=== PATIENT | male | born 1950 | race Caucasian/White ===

== ENCOUNTER 2020-07-22 14:33 | Emergency (ER) | payer MEDICARE, OTHER, SELFPAY ==
[2020-07-22] VITALS (8 sets, daily range): BP systolic 134–162; BP diastolic 73–83; PULSE 77–91; RESP 15–16; TEMP 36.7–37.1; O2SAT 96–98; BMI 25.6
--- NOTE | 2020-07-22 15:18 | XR_ITS ---
EXAMINATION: XR CHEST CLINICAL INFORMATION: Chest pain COMPARISON: 07/18/2008 TECHNIQUE: Frontal view of the chest was obtained. FINDINGS: Lungs are clear. No focal consolidation or mass. Normal pulmonary vascularity. No pleural effusion or pneumothorax. Tortuous aorta again seen, similar to the prior study. Normal heart size. S-shaped thoracolumbar scoliosis. XR/XR chest 1V IMPRESSION: No acute pulmonary disease.
--- NOTE | 2020-07-22 15:19 | ED.CHESTPAIN ---
HPI - Chest Pain General Chief Complaint: Chest Pain <PORFIRIO Farmer Last Filed: 07/22/20 17:49> Stated Complaint: CHEST PAIN <PORFIRIO Farmer Last Filed: 07/22/20 17:49> Time Seen by Provider: 07/22/20 15:18 <PORFIRIO Farmer Last Filed: 07/22/20 17:49> Source: patient <PORFIRIO Farmer Last Filed: 07/22/20 17:49> Mode of arrival: ambulatory <PORFIRIO Farmer Last Filed: 07/22/20 17:49> Limitations: no limitations <PORFIRIO Farmer Last Filed: 07/22/20 17:49> History of Present Illness HPI narrative: 70 y/o male with history of diabetes, HTN, HLD presenting from Urgent care with 2 days of intermittent sharp left sided chest pain. He states the 1st episode started at rest while he was at home 2 days ago. Lasted about 30 minutes and slowly resolved. Associated with nausea, no diaphoresis. He reports it recurred today while he was walking around [facility]. The pain is on the left side of his chest, does not radiate. He reports at maximum it was 9/10 and currently 1/10. When the pain is severe he feels lightheaded. Denies personal history of heart disease with a positive family history in mom and dad when they were elderly. He is a never smoker. <PORFIRIO Farmer Last Filed: 07/22/20 17:49> Related Data Home Medications: Previous Rx's Medication Instructions Recorded metformin 1,000 mg tablet 1,000 mg PO BID 90 Days #180 tab 06/23/20 <PORFIRIO Farmer Last Filed: 07/22/20 17:49> Allergies/Adverse Reactions: Allergies Allergy/AdvReac Type Severity Reaction Status Date / Time sitagliptin [From SEPUVIA] Allergy Unknown vomitting Verified 07/21/20 10:23 <PORFIRIO Farmer Last Filed: 07/22/20 17:49> Review of Systems Review of Systems: Constitutional: No Fever, No Chills ENT/Mouth: No sore throat, No Rhinorrhea, No Swallowing Difficulty Eyes: No Eye Pain, No Swelling, No Redness Cardiovascular: + Chest Pain, No SOB, No Orthopnea, No Edema Respiratory: No Cough, No Sputum, No Wheezing, No dyspnea Gastrointestinal: No Nausea, No Vomiting, No Diarrhea, No abdominal Pain, No Hematochezia, No Melena Genitourinary: No Dysuria, No Urinary Frequency, No Hematuria Musculoskeletal: No joint pain, No Myalgias Skin: No Skin Lesions, No rash Neuro: No Weakness, No Numbness, + Dizziness, No Headache Psych: No Anxiety/Panic, No Depression Heme/Lymph: No Bruising, No Lymphadenopathy Endocrine: No Polyuria, No Polydipsia <PORFIRIO Farmer - Last Filed: 07/22/20 17:49> [facility] Past Medical History Medical History: Medical History (Updated 07/24/20 @ 00:07 by Rolando Moscoso) Diabetes HTN (hypertension) Hyperlipidemia <PORFIRIO Farmer - Last Filed: 07/22/20 17:49> Surgical History: Surgical History (Updated 07/21/20 @ 10:24 by ELADIA Burnett) No pertinent past surgical history <PORFIRIO Farmer - Last Filed: 07/22/20 17:49> Family History Family History: Family History (Updated 07/21/20 @ 10:24 by ELADIA Burnett) Father No problems noted. Mother Myocardial infarction Sister Diabetes Hypertension <PORFIRIO Farmer - Last Filed: 07/22/20 17:49> Social History Social History: Social History Alcohol intake: current Alcohol intake frequency: holidays/special occasions only Smoking Status: Never smoker <PORFIRIO Farmer - Last Filed: 07/22/20 17:49> Physical Exam Vital Signs: Vital Signs: Last Vital Signs Temp 98.9 F 07/23/20 02:00 Pulse 83 07/23/20 02:00 Resp 18 07/23/20 02:00 BP 132/89 07/23/20 02:00 Pulse Ox 97 07/23/20 02:00 Body Mass Index 25.6 Appearance: Alert. Oriented X3. No acute distress. Eyes: Pupils equal, round and reactive to light. ENT: Pharynx normal. Neck: Normal inspection. Neck supple. CVS: Normal heart rate and rhythm. Pulses normal. No chest wall tenderness. Respiratory: No respiratory distress. Breath sounds normal. Abdomen: Soft, obese, and nontender. +BS x4 Skin: Skin warm and dry. Normal skin color. Normal skin turgor. No rashes. Extremities: No lower extremity edema. Negative Chai's sign Neuro: Oriented X 3. No motor deficit. No sensory deficit. <PORFIRIO Farmer - Last Filed: 07/22/20 17:49> Vital Signs: Last Vital Signs Temp 98.9 F 07/23/20 02:00 Pulse 83 07/23/20 02:00 Resp 18 07/23/20 02:00 BP 132/89 07/23/20 02:00 Pulse Ox 97 07/23/20 02:00 Body Mass Index 25.6 <PORFIRIO Dougherty - Last Filed: 07/23/20 01:29> Vital Signs: Last Vital Signs Temp 98.9 F 07/23/20 02:00 Pulse 83 07/23/20 02:00 Resp 18 07/23/20 02:00 BP 132/89 07/23/20 02:00 Pulse Ox 97 07/23/20 02:00 Body Mass Index 25.6 <Michael De León MD - Last Filed: 07/25/20 02:20> Course Course Course Narrative: 70 y/o here with intermittent left sided chest pain. Need to r/o ACS and PE. Pain is minimal at this time. 1st troponin negative. DDIMER negative. No ischemic changes on EKG. 2nd troponin pending. Pain currently 09/21 patient appears well. Signed out to Jewel Stephens PA-C who will assume care. <PORFIRIO Farmer - Last Filed: 07/22/20 17:49> I have reviewed the chart <Michael De León MD - Last Filed: 07/25/20 02:20> MDM - Chest Pain Lab Data Result diagrams: : 07/22/20 15:30 07/22/20 15:30 <PORFIRIO Farmer - Last Filed: 07/22/20 17:49> Labs: Lab Results 07/22/20 07/22/20 07/22/20 Range/Units 15:30 15:30 15:30 WBC 4.6 L (4.8-10.8) X10*3/uL RBC 4.22 L (4.60-5.80) X10*6/uL Hgb 12.8 L (14.0-18.0) g/dl Hct 38.9 L (42-52) % MCV 92.2 (80-98) fL MCH 30.3 (27.0-33.0) pg MCHC 32.9 (31.0-36.0) g/dl RDW 12.0 (11.0-16.0) % Plt Count 195 (160-400) X10*3/uL MPV 10.2 (9.4-12.4) fL Immature Gran % (Auto) 0.2 (0.0-0.4) % Neut % (Auto) 52.4 (45-73) % Lymph % (Auto) 33.5 (20-40) % [place] % (Auto) 8.7 (2-11) % Eos % (Auto) 5.0 H (0-4) % Baso % (Auto) 0.2 (0-2) % Lymph # (Auto) 1.6 (1.2-4.9) X10*3/uL [place] # (Auto) 0.4 (0.1-1.2) X10*3/uL Eos # (Auto) 0.2 (0.0-0.4) X10*3/uL Baso # (Auto) 0.0 (0.0-0.2) X10*3/uL Abs Immat Gran (auto) 0.01 (0.00-0.03) X10*3/uL Absolute Neuts (auto) 2.4 (2.0-8.3) X10*3/uL Absolute Nucleated RBC 0.000 (0.0-0.012) X10*3/uL Nucleated RBC % (auto) 0.0 (0.0-0.2) /100WBC D-Dimer < 200 NG/ML Hold Blue Top SEE NOTE Sodium 136 (135-145) mmol/L Potassium 4.3 (3.3-5.1) mmol/l Chloride 101 (96-108) mmol/L Carbon Dioxide 25 (22-29) mmol/L Anion Gap 14 (12-20) BUN 12 (9-16) mg/dL Creatinine 0.88 (0.5-1.4) mg/dL Estim Creat Clear Calc 85.7 Estimated GFR > 60 Random Glucose 256 H (60-115) mg/dL Calcium 9.0 (8.4-10.2) mg/dL Troponin I High Sens (<3.5-35.0) ng/L 07/22/20 07/22/20 07/22/20 Range/Units 15:30 20:37 23:37 WBC (4.8-10.8) X10*3/uL RBC (4.60-5.80) X10*6/uL Hgb (14.0-18.0) g/dl Hct (42-52) % MCV (80-98) fL MCH (27.0-33.0) pg MCHC (31.0-36.0) g/dl RDW (11.0-16.0) % Plt Count (160-400) X10*3/uL MPV (9.4-12.4) fL Immature Gran % (Auto) (0.0-0.4) % Neut % (Auto) (45-73) % Lymph % (Auto) (20-40) % [place] % (Auto) (2-11) % Eos % (Auto) (0-4) % Baso % (Auto) (0-2) % Lymph # (Auto) (1.2-4.9) X10*3/uL [place] # (Auto) (0.1-1.2) X10*3/uL Eos # (Auto) (0.0-0.4) X10*3/uL Baso # (Auto) (0.0-0.2) X10*3/uL Abs Immat Gran (auto) (0.00-0.03) X10*3/uL Absolute Neuts (auto) (2.0-8.3) X10*3/uL Absolute Nucleated RBC (0.0-0.012) X10*3/uL Nucleated RBC % (auto) (0.0-0.2) /100WBC D-Dimer NG/ML Hold Blue Top Sodium (135-145) mmol/L Potassium (3.3-5.1) mmol/l Chloride (96-108) mmol/L Carbon Dioxide (22-29) mmol/L Anion Gap (12-20) BUN (9-16) mg/dL Creatinine (0.5-1.4) mg/dL Estim Creat Clear Calc Estimated GFR Random Glucose (60-115) mg/dL Calcium (8.4-10.2) mg/dL Troponin I High Sens 3.9 6.9 D 8.8 (<3.5-35.0) ng/L <PORFIRIO Farmer - Last Filed: 07/22/20 17:49> Lab Results 07/22/20 07/22/20 07/22/20 Range/Units 15:30 15:30 15:30 WBC 4.6 L (4.8-10.8) X10*3/uL RBC 4.22 L (4.60-5.80) X10*6/uL Hgb 12.8 L (14.0-18.0) g/dl Hct 38.9 L (42-52) % MCV 92.2 (80-98) fL MCH 30.3 (27.0-33.0) pg MCHC 32.9 (31.0-36.0) g/dl RDW 12.0 (11.0-16.0) % Plt Count 195 (160-400) X10*3/uL MPV 10.2 (9.4-12.4) fL Immature Gran % (Auto) 0.2 (0.0-0.4) % Neut % (Auto) 52.4 (45-73) % Lymph % (Auto) 33.5 (20-40) % [place] % (Auto) 8.7 (2-11) % Eos % (Auto) 5.0 H (0-4) % Baso % (Auto) 0.2 (0-2) % Lymph # (Auto) 1.6 (1.2-4.9) X10*3/uL [place] # (Auto) 0.4 (0.1-1.2) X10*3/uL Eos # (Auto) 0.2 (0.0-0.4) X10*3/uL Baso # (Auto) 0.0 (0.0-0.2) X10*3/uL Abs Immat Gran (auto) 0.01 (0.00-0.03) X10*3/uL Absolute Neuts (auto) 2.4 (2.0-8.3) X10*3/uL Absolute Nucleated RBC 0.000 (0.0-0.012) X10*3/uL Nucleated RBC % (auto) 0.0 (0.0-0.2) /100WBC D-Dimer < 200 NG/ML Hold Blue Top SEE NOTE Sodium 136 (135-145) mmol/L Potassium 4.3 (3.3-5.1) mmol/l Chloride 101 (96-108) mmol/L Carbon Dioxide 25 (22-29) mmol/L Anion Gap 14 (12-20) BUN 12 (9-16) mg/dL Creatinine 0.88 (0.5-1.4) mg/dL Estim Creat Clear Calc 85.7 Estimated GFR > 60 Random Glucose 256 H (60-115) mg/dL Calcium 9.0 (8.4-10.2) mg/dL Troponin I High Sens (<3.5-35.0) ng/L 07/22/20 07/22/20 07/22/20 Range/Units 15:30 20:37 23:37 WBC (4.8-10.8) X10*3/uL RBC (4.60-5.80) X10*6/uL Hgb (14.0-18.0) g/dl Hct (42-52) % MCV (80-98) fL MCH (27.0-33.0) pg MCHC (31.0-36.0) g/dl RDW (11.0-16.0) % Plt Count (160-400) X10*3/uL MPV (9.4-12.4) fL Immature Gran % (Auto) (0.0-0.4) % Neut % (Auto) (45-73) % Lymph % (Auto) (20-40) % [place] % (Auto) (2-11) % Eos % (Auto) (0-4) % Baso % (Auto) (0-2) % Lymph # (Auto) (1.2-4.9) X10*3/uL [place] # (Auto) (0.1-1.2) X10*3/uL Eos # (Auto) (0.0-0.4) X10*3/uL Baso # (Auto) (0.0-0.2) X10*3/uL Abs Immat Gran (auto) (0.00-0.03) X10*3/uL Absolute Neuts (auto) (2.0-8.3) X10*3/uL Absolute Nucleated RBC (0.0-0.012) X10*3/uL Nucleated RBC % (auto) (0.0-0.2) /100WBC D-Dimer NG/ML Hold Blue Top Sodium (135-145) mmol/L Potassium (3.3-5.1) mmol/l Chloride (96-108) mmol/L Carbon Dioxide (22-29) mmol/L Anion Gap (12-20) BUN (9-16) mg/dL Creatinine (0.5-1.4) mg/dL Estim Creat Clear Calc Estimated GFR Random Glucose (60-115) mg/dL Calcium (8.4-10.2) mg/dL Troponin I High Sens 3.9 6.9 D 8.8 (<3.5-35.0) ng/L <PORFIRIO Dougherty - Last Filed: 07/23/20 01:29> Lab Results 07/22/20 07/22/20 07/22/20 Range/Units 15:30 15:30 15:30 WBC 4.6 L (4.8-10.8) X10*3/uL RBC 4.22 L (4.60-5.80) X10*6/uL Hgb 12.8 L (14.0-18.0) g/dl Hct 38.9 L (42-52) % MCV 92.2 (80-98) fL MCH 30.3 (27.0-33.0) pg MCHC 32.9 (31.0-36.0) g/dl RDW 12.0 (11.0-16.0) % Plt Count 195 (160-400) X10*3/uL MPV 10.2 (9.4-12.4) fL Immature Gran % (Auto) 0.2 (0.0-0.4) % Neut % (Auto) 52.4 (45-73) % Lymph % (Auto) 33.5 (20-40) % [place] % (Auto) 8.7 (2-11) % Eos % (Auto) 5.0 H (0-4) % Baso % (Auto) 0.2 (0-2) % Lymph # (Auto) 1.6 (1.2-4.9) X10*3/uL [place] # (Auto) 0.4 (0.1-1.2) X10*3/uL Eos # (Auto) 0.2 (0.0-0.4) X10*3/uL Baso # (Auto) 0.0 (0.0-0.2) X10*3/uL Abs Immat Gran (auto) 0.01 (0.00-0.03) X10*3/uL Absolute Neuts (auto) 2.4 (2.0-8.3) X10*3/uL Absolute Nucleated RBC 0.000 (0.0-0.012) X10*3/uL Nucleated RBC % (auto) 0.0 (0.0-0.2) /100WBC D-Dimer < 200 NG/ML Hold Blue Top SEE NOTE Sodium 136 (135-145) mmol/L Potassium 4.3 (3.3-5.1) mmol/l Chloride 101 (96-108) mmol/L Carbon Dioxide 25 (22-29) mmol/L Anion Gap 14 (12-20) BUN 12 (9-16) mg/dL Creatinine 0.88 (0.5-1.4) mg/dL Estim Creat Clear Calc 85.7 Estimated GFR > 60 Random Glucose 256 H (60-115) mg/dL Calcium 9.0 (8.4-10.2) mg/dL Troponin I High Sens (<3.5-35.0) ng/L 07/22/20 07/22/20 07/22/20 Range/Units 15:30 20:37 23:37 WBC (4.8-10.8) X10*3/uL RBC (4.60-5.80) X10*6/uL Hgb (14.0-18.0) g/dl Hct (42-52) % MCV (80-98) fL MCH (27.0-33.0) pg MCHC (31.0-36.0) g/dl RDW (11.0-16.0) % Plt Count (160-400) X10*3/uL MPV (9.4-12.4) fL Immature Gran % (Auto) (0.0-0.4) % Neut % (Auto) (45-73) % Lymph % (Auto) (20-40) % [place] % (Auto) (2-11) % Eos % (Auto) (0-4) % Baso % (Auto) (0-2) % Lymph # (Auto) (1.2-4.9) X10*3/uL [place] # (Auto) (0.1-1.2) X10*3/uL Eos # (Auto) (0.0-0.4) X10*3/uL Baso # (Auto) (0.0-0.2) X10*3/uL Abs Immat Gran (auto) (0.00-0.03) X10*3/uL Absolute Neuts (auto) (2.0-8.3) X10*3/uL Absolute Nucleated RBC (0.0-0.012) X10*3/uL Nucleated RBC % (auto) (0.0-0.2) /100WBC D-Dimer NG/ML Hold Blue Top Sodium (135-145) mmol/L Potassium (3.3-5.1) mmol/l Chloride (96-108) mmol/L Carbon Dioxide (22-29) mmol/L Anion Gap (12-20) BUN (9-16) mg/dL Creatinine (0.5-1.4) mg/dL Estim Creat Clear Calc Estimated GFR Random Glucose (60-115) mg/dL Calcium (8.4-10.2) mg/dL Troponin I High Sens 3.9 6.9 D 8.8 (<3.5-35.0) ng/L <Michael De León MD - Last Filed: 07/25/20 02:20> Scores Heart Score History: -1- moderately suspicious <PORFIRIO Farmer - Last Filed: 07/22/20 17:49> ECG: -0- normal <PORFIRIO Farmer - Last Filed: 07/22/20 17:49> Age: -2- > or = 65 <PORFIRIO Farmer - Last Filed: 07/22/20 17:49> Risk factory: -2- 3 or more risk factors or treated atherosclerosis <PORFIRIO Farmer Last Filed: 07/22/20 17:49> Troponin: -0- < or = normal limit <PORFIRIO Farmer Last Filed: 07/22/20 17:49> Score: 5 <PORFIRIO Farmer Last Filed: 07/22/20 17:49> Risk: 16.6% <PORFIRIO Farmer Last Filed: 07/22/20 17:49> Discharge Plan Discharge Clinical Impression: Atypical chest pain <PORFIRIO Farmer Last Filed: 07/22/20 17:49> Patient Disposition: Home, Self-Care <PORFIRIO Farmer Last Filed: 07/22/20 17:49> Instructions: Chest Pain (ED) <PORFIRIO Farmer Last Filed: 07/22/20 17:49> Additional Instructions: return to the ED immediately for any worsening chest pain, shortness of breath, swelling of lower extremities, calf pain, fever, chills, or any other concerning symptoms. <PORFIRIO Farmer - Last Filed: 07/22/20 17:49> Prescriptions: No Action metformin 1,000 mg tablet 1,000 mg PO BID 90 Days Qty: 180 RF: 1 <PORFIRIO Farmer Last Filed: 07/22/20 17:49> Referrals: Vikash Pompa PA-C [Primary Care Provider] - 2 days ( Atypical chest pain. D-dimer negative. No change in EKG. Three troponins done in the ER) <PORFIRIO Farmer Last Filed: 07/22/20 17:49> Interventions: ED Discharge Assessment Last Done: 07/23/20 02:12 <PORFIRIO Farmer Last Filed: 07/22/20 17:49> Discharge Date/Time: 07/23/20 02:00 <PORFIRIO Farmer Last Filed: 07/22/20 17:49> Print Language: Maltese <PORFIRIO Farmer Last Filed: 07/22/20 17:49>
[2020-07-22 15:40] LABS: MANUAL DIFF FLAG NO
[2020-07-22 15:45] LABS: Basophils Percent Auto 0.2 % (0-2); Eosinophils Absolute Auto 0.2 X10*3/uL (0.0-0.4); Hematocrit 38.9 % (42-52); Hemoglobin 12.8 g/dl (14.0-18.0); Imm Gran Abs Auto 0.01 X10*3/uL (0.00-0.03); Imm Gran Pct Auto 0.2 % (0.0-0.4); Lymphocytes Absolute Auto 1.6 X10*3/uL (1.2-4.9); Lymphocytes Percent Auto 33.5 % (20-40); Mean Corpuscular HGB Conc 32.9 g/dl (31.0-36.0); Mean Corpuscular Hemoglobin 30.3 pg (27.0-33.0); Mean Corpuscular Volume 92.2 fL (80-98); Mean Platelet Volume 10.2 fL (9.4-12.4); Monocytes Absolute Auto 0.4 X10*3/uL (0.1-1.2); Monocytes Percent Auto 8.7 % (2-11); Neutrophils Absolute Auto 2.4 X10*3/uL (2.0-8.3); Neutrophils Percent Auto 52.4 % (45-73); Platelet Count 195 X10*3/uL (160-400); Red Blood Count 4.22 X10*6/uL (4.60-5.80); White Blood Count 4.6 X10*3/uL (4.8-10.8)
[2020-07-22 16:03] LABS: D Dimer < 200 NG/ML
[2020-07-22 16:15] LABS: Anion Gap 14 (12-20); Blood Urea Nitrogen 12 mg/dL (9-16); Carbon Dioxide 25 mmol/L (22-29); Chloride 101 mmol/L (96-108); Creatinine Clr Calc Pharmacy 85.7; Estimated Glomerular Filt Rate > 60; Glucose Random 256 mg/dL (60-115); Potassium 4.3 mmol/l (3.3-5.1); Sodium 136 mmol/L (135-145)
[2020-07-22 16:19] LABS: Troponin-I High Sensitivity 3.9 ng/L (<3.5-35.0)
[2020-07-22 21:29] LABS: Troponin-I High Sensitivity 6.9 ng/L (<3.5-35.0)
[2020-07-23 00:21] LABS: Troponin-I High Sensitivity 8.8 ng/L (<3.5-35.0)
--- NOTE | 2020-07-23 01:01 | ECG_ITS ---
Test Reason : ABNORMAL EKG Blood Pressure : / mmHG Vent. Rate : 091 BPM Atrial Rate : 091 BPM P-R Int : 160 ms QRS Dur : 074 ms QT Int : 346 ms P-R-T Axes : 035 -38 066 degrees QTc Int : 425 ms Normal sinus rhythm with sinus arrhythmia Possible Left atrial enlargement Left axis deviation Left ventricular hypertrophy Nonspecific T wave abnormality Abnormal ECG When compared with ECG of 18-JUL-2008 12:36, Nonspecific T wave abnormality now evident in Lateral leads Heart rate has increased Referred By: Jewel Harp Electronically Signed By:KRISTA DEY MD
[2020-07-23 02:00] VITALS: BP 132/89; PULSE 83; RESP 18; TEMP 37.2; O2SAT 97
== END 2020-07-23 02:00 | disposition home or self-care (01) ==
PROVIDERS: Physician Assistant; Emergency Provider Emergency Medicine; PCP Physician Assistant
DX: R07.89 Other chest pain (principal); I10 Essential (primary) hypertension; Z79.899 Other long term (current) drug therapy
CPT/HCPCS: 36415; 71045; 80048; 84484; 85025; 85379; 93005; 99284; 99285

== ENCOUNTER → 2020-09-08 14:20 | Outpatient (BNVA) | payer MEDICARE, SELFPAY | PROVIDERS: PCP Physician Assistant; Visit Provider Internal Medicine | DX: R07.2 Precordial pain (principal); E11.8 Type 2 diabetes mellitus with unspecified complications; I10 Essential (primary) hypertension; E78.5 Hyperlipidemia, unspecified | CPT/HCPCS: 99202 ==

== ENCOUNTER → 2020-10-03 10:09 | Outpatient (REF) | payer MEDICARE, SELFPAY ==
--- NOTE | 2020-10-03 10:13 | CA_ITS ---
Transthoracic Echocardiogram Patient (Last, First, Middle): Rivera Hernandez, Gender: Male Date of : 1950 Age: 70 Procedure Date: 10/03/2020 Procedure Type: Transthoracic Echocardiogram Location: OP Height: 180.34 cm Weight: 87.54 kg BSA: 2.08 m2 Heart Rate: bpm BP: 140 / 89 mmHg Lay Out Technician: JAQUELINE Referring MD: Magnus Thomas MD Symptoms: R07.2 - Precordial pain Study Quality: Fair ECG Rhythm: Sinus Conclusions: - The left ventricular systolic function is normal. The visually estimated ejection fraction is between 55-60%. - There is moderate calcification of the aortic valve. - There is mild mitral annular calcification. Findings Left Ventricle Normal left ventricular cavity size. There is mildly increased left ventricular wall thickness. The left ventricular systolic function is normal. The visually estimated ejection fraction is between 55-60%. There is no evidence of regional wall motion abnormalities. Diastolic function is normal for age. Right Ventricle Normal right ventricular cavity size and systolic function. Atria The left atrium is normal in size. The right atrium is normal in size. Aortic Valve There is moderate calcification of the aortic valve. There is no aortic valve stenosis. The peak aortic velocity is 2.24 m/s with a calculated peak gradient of 20 mmHg. The mean gradient is 13 mmHg. The aortic valve area is 2.70 cm2. There is no aortic valve regurgitation. Mitral Valve There is mild mitral annular calcification. There is no mitral valve regurgitation. There is no mitral valve stenosis. Pulmonic Valve The pulmonic valve was not well visualized. Tricuspid Valve Normal tricuspid valve structure. There is trace tricuspid valve regurgitation. The pulmonary artery systolic pressure is normal. Great Vessels The aorta was not well visualized. The aortic annulus is normal in size. Venous The inferior vena cava is normal in size and collapses greater than 50% with inspiration. Pericardium/Pleural There is no evidence of pericardial effusion. Prior Study Comparison No prior study available for comparison. Measurements 2D Linear Measurements IVSd: 1.21 0.6-0.9/0.6-1.0 cm LVIDd: 3.81 3.9-5.3/4.2-5.9 cm LVIDd Index: 1.83 2.4-3.2/2.2-3.1 cm/m2 LVIDs: 2.11 2.0-3.6 cm LVPWd: 0.98 0.7-1.1 cm Ao Root: 3.10 2.1-3.5 cm LA Diam: 3.50 2.7-3.8/3.0-4.0 cm LAIDs Index: 1.68 1.5-2.3 cm/m2 LV Mass: 166.56 67-162/88-224 g LV Mass Index: 80.08 43-95/49-115 g/m2 LVOT Diam: 2.30 3.0+(-)1.3 cm 2D Systolic Function EF 4C: 62.00 >55% Mitral Valve MV Pk E: 0.63 MV PK A: 0.90 MV Decel Time: 209.00 E/A: 0.70 E'Lateral: 10.50 E'Medial: 6.29 E/E' Med: 10.00 E/E' Lat: 6.00 PHT: 61.00 MVA PHT: 3.61 Decel [place]: 3.00 Aortic Valve AoV Pk [place]: 2.24 AoV Mn [place]: 1.63 AoV VTI: 0.39 AoV Pk Grad: 20.00 Aov Mn Grad: 13.00 MOLLY Cont.VTI: 2.70 LVOT LVOT Pk [place]: 1.52 LVOT Mn [place]: 0.99 LVOT VTI: 0.26 LVOT Pk Grad: 9.00 LVOT Mn Grad: 5.00 LVOT Diam: 2.30 LVOT Area: 4.15 Diastolic Function MV Pk E: 0.63 MV Pk A: 0.90 E/A: 0.70 E'Medial: 6.29 E/E' Med: 10.00 E' Laterial: 10.50 E/E' Lat: 6.00 Tricuspid Valve TR Pk [place]: 2.47 TR Pk Grad: 24.00 RA Press: 3.00 RVSP: 27.00 Great Vessels Aorta Ao Root-2D: 3.10 2.0-3.7 cm Ao Asc: 3.90 2.1-3.4 cm Updated in Other Vendor System with Status of Final Magnus Thomas MD electronically signed on 10/04/2020 2:04:26 PM with status of Final
--- NOTE | 2020-10-03 10:14 | CA_ITS ---
Acquisition Time: 2020-10-03 12:20:03 Total Exercise Time: 00:05:02 Test Indications: CP Medications: SEE CHART Protocol: AMOL Max HR: 139 BPM 93% of Pred: 148 BPM Max BP: 146/078 mmHG Max Work Load: 4.6 METS Exercise nuclear stress test using Amol protocol, second stage held and speed and incline decresed as pt had hard time walking on the treadmil d/t his L knee disc. He walked total of 5 min 2 sec, METS 4.60, TAPHR up to 93 % Tolerated well, denies any anginal sx. EKG with isolated PVC's no ischemic changes seen during exercise or in recovery. Nuclear images to follow. Normotensive response to exercise. Test reviewed with Dr. Thomas Referred By: Magnus Thomas Overread By: Saud Helm
--- NOTE | 2020-10-03 11:32 | NM_ITS ---
Exercise Myocardial perfusion study Indication: Precordial pain to evaluate for myocardial ischemia Technique: The patient was brought in for an exercise perfusion study on 10/03/2020. Patient performed exercise as per Grover protocol and was injected 30 mCi of sestamibi was given intravenously one target HR was achieved. Images were obtained using the SPECT gamma camera interlaced with the gating device. Images were obtained in supine position. Resting perfusion study was performed on 10/06/2020. Patient was administered 30 mCi of sestamibi intravenously at rest. Images were then obtained in supine position. Images obtained with and without CT attenuation. Total DLP 79 mGy-cm. Images were processed with the software and compared side to side in short axis, horizontal long axis and vertical long axis views. Findings: The stress perfusion study showed non attenuated images show mildly to moderately reduced uptake in the basal inferior wall of the LV myocardium. Impression corrected images show normalized uptake in all segments of LV myocardium. The gated study shows normal LV systolic function with calculated LVEF of 72%. LV cavity is normal in size. The gated study shows normal systolic wall thickening and contraction of all segments. There is no transient ischemic dilation. Resting study shows no change in perfusion pattern compared to stress perfusion study. Gating at rest reveals normal systolic wall motion with ejection fraction at 62%. The findings are consistent with normal myocardial perfusion. NM/NM cardiolite stress test Impression: 1. Normal myocardial perfusion 2. Gated LVEF is 72% 3. Transient ischemic dilatation not present Stress EKG is negative for ischemia
== END ==
LOC: HO.CARD 10:09
PROVIDERS: Visit Provider Internal Medicine
DX: R07.2 Precordial pain (principal)
CPT/HCPCS: 78452; 93017; 93306; A9500

== ENCOUNTER → 2020-10-07 09:28 | Outpatient (BNVA) | payer MEDICARE, SELFPAY | PROVIDERS: PCP Physician Assistant; Visit Provider Internal Medicine | DX: R07.2 Precordial pain (principal); E11.8 Type 2 diabetes mellitus with unspecified complications; I10 Essential (primary) hypertension; E78.5 Hyperlipidemia, unspecified | CPT/HCPCS: 99212 ==

== ENCOUNTER 2020-11-14 07:03 | Outpatient (REF) | payer MEDICARE, SELFPAY ==
[2020-11-14 07:52] LABS: Basophils Percent Auto 0.3 % (0-2); Eosinophils Absolute Auto 0.4 X10*3/uL (0.0-0.4); Hematocrit 43.9 % (42-52); Hemoglobin 14.2 g/dl (14.0-18.0); Imm Gran Abs Auto 0.01 X10*3/uL (0.00-0.03); Imm Gran Pct Auto 0.3 % (0.0-0.4); Lymphocytes Absolute Auto 1.5 X10*3/uL (1.2-4.9); Lymphocytes Percent Auto 45.3 % (20-40); MANUAL DIFF FLAG SCAN; Mean Corpuscular HGB Conc 32.3 g/dl (31.0-36.0); Mean Corpuscular Hemoglobin 29.8 pg (27.0-33.0); Mean Corpuscular Volume 92.2 fL (80-98); Mean Platelet Volume 10.8 fL (9.4-12.4); Monocytes Absolute Auto 0.5 X10*3/uL (0.1-1.2); Monocytes Percent Auto 14.1 % (2-11); Neutrophils Absolute Auto 0.9 X10*3/uL (2.0-8.3); Platelet Count 193 X10*3/uL (160-400); Red Blood Count 4.76 X10*6/uL (4.60-5.80); Red Cell Distribution Width 12.6 % (11.0-16.0); SCAN SMEAR FLAG 1; White Blood Count 3.3 X10*3/uL (4.8-10.8)
[2020-11-14 08:17] LABS: SLIDE REVIEW VERIFIED
[2020-11-14 09:11] LABS: Alanine Aminotransferase 44 U/L (0-40); Albumin Level 4.6 g/dL (3.5-5.0); Alkaline Phosphatase 75 U/L (39-117); Anion Gap 12 (12-20); Aspartate Amino Transferase 28 U/L (5-37); Bilirubin Total 0.5 mg/dL (0.0-1.0); Blood Urea Nitrogen 11 mg/dL (9-16); Calcium 9.7 mg/dL (8.4-10.2); Carbon Dioxide 28 mmol/L (22-29); Chloride 100 mmol/L (96-108); Cholesterol 170 mg/dL; Estimated Glomerular Filt Rate > 60; Glucose Fasting 228 mg/dL (60-99); HDL Cholesterol 39 mg/dL; LDL Cholesterol Calculated 100 mg/dl; Potassium 4.3 mmol/L (3.3-5.1); Sodium 136 mmol/L (135-145); Total Protein 8.3 g/dL (6.5-8.0); Triglycerides 157 mg/dL
[2020-11-14 09:19] LABS: TSH reflex Free T4 4.21 uIU/mL (0.32-4.0)
[2020-11-14 10:01] LABS: Free T4 (Free Thyroxine) 0.87 ng/dL (0.71-1.85)
== END 2020-11-14 07:04 | disposition home or self-care (01) ==
LOC: HO.LAB 07:03
PROVIDERS: PCP Physician Assistant; Visit Provider Physician Assistant
DX: E11.9 Type 2 diabetes mellitus without complications (principal); I10 Essential (primary) hypertension; R07.9 Chest pain, unspecified
CPT/HCPCS: 36415; 80053; 80061; 84439; 84443; 85025

== ENCOUNTER 2021-02-16 07:02 | Outpatient (REF) | payer MEDICARE, OTHER, SELFPAY ==
[2021-02-16 08:30] LABS: MANUAL DIFF FLAG NO
[2021-02-16 08:36] LABS: Basophils Percent Auto 0.5 % (0-2); Eosinophils Absolute Auto 0.3 X10*3/uL (0.0-0.4); Hematocrit 43.3 % (42-52); Lymphocytes Percent Auto 46.5 % (20-40); Mean Corpuscular HGB Conc 32.3 g/dl (31.0-36.0); Mean Corpuscular Hemoglobin 29.4 pg (27.0-33.0); Mean Platelet Volume 10.8 fL (9.4-12.4); Monocytes Absolute Auto 0.4 X10*3/uL (0.1-1.2); Monocytes Percent Auto 8.2 % (2-11); Neutrophils Absolute Auto 1.6 X10*3/uL (2.0-8.3); Neutrophils Percent Auto 36.8 % (45-73); Platelet Count 196 X10*3/uL (160-400); Red Blood Count 4.76 X10*6/uL (4.60-5.80); Red Cell Distribution Width 12.2 % (11.0-16.0); White Blood Count 4.3 X10*3/uL (4.8-10.8)
[2021-02-16 09:25] LABS: Alanine Aminotransferase 33 U/L (0-40); Albumin Level 4.5 g/dL (3.5-5.0); Alkaline Phosphatase 74 U/L (39-117); Anion Gap 14 (12-20); Aspartate Amino Transferase 22 U/L (5-37); Bilirubin Total 0.7 mg/dL (0.0-1.0); Blood Urea Nitrogen 14 mg/dL (9-16); Calcium 9.6 mg/dL (8.4-10.2); Carbon Dioxide 26 mmol/L (22-29); Chloride 102 mmol/L (96-108); Cholesterol 132 mg/dL; Estimated Glomerular Filt Rate > 60; Glucose Fasting 254 mg/dL (60-99); HDL Cholesterol 37 mg/dL; LDL Cholesterol Calculated 76 mg/dl; Potassium 5.1 mmol/L (3.3-5.1); Sodium 137 mmol/L (135-145); Total Protein 7.9 g/dL (6.5-8.0); Triglycerides 99 mg/dL
== END 2021-02-16 07:03 | disposition home or self-care (01) ==
LOC: HO.LAB 07:02
PROVIDERS: Nurse Practitioner Family; PCP Physician Assistant; Visit Provider Physician Assistant
DX: E11.8 Type 2 diabetes mellitus with unspecified complications (principal); R07.9 Chest pain, unspecified
CPT/HCPCS: 36415; 80053; 80061; 85025

== ENCOUNTER → 2021-03-24 08:12 | Outpatient (BNVA) | payer MEDICARE, OTHER, SELFPAY | PROVIDERS: PCP Physician Assistant; Referring Provider Physician Assistant; Visit Provider Internal Medicine | DX: R07.2 Precordial pain (principal); E11.8 Type 2 diabetes mellitus with unspecified complications; I10 Essential (primary) hypertension; E78.5 Hyperlipidemia, unspecified; Z79.899 Other long term (current) drug therapy | CPT/HCPCS: 99212 ==

== ENCOUNTER 2021-05-25 07:11 | Outpatient (REF) | payer MEDICARE, OTHER, SELFPAY | END 2021-05-25 07:12 | disposition home or self-care (01) | LOC: HO.LAB 07:11 | PROVIDERS: PCP Physician Assistant; Visit Provider Nurse Practitioner Family | DX: Z13.89 Encounter for screening for other disorder (principal) ==

== ENCOUNTER 2021-08-22 07:05 | Outpatient (REF) | payer MEDICARE, OTHER, SELFPAY ==
[2021-08-22 08:04] LABS: Hematocrit 43.3 % (42.0-52.0); Hemoglobin 14.1 g/dl (14.0-18.0); Mean Corpuscular HGB Conc 32.6 g/dl (31.0-36.0); Mean Corpuscular Hemoglobin 29.7 pg (27.0-33.0); Mean Corpuscular Volume 91.4 fL (80.0-98.0); Platelet Count 184 X10*3/uL (160-400); Red Blood Count 4.74 X10*6/uL (4.60-5.80); Red Cell Distribution Width 12.2 % (11.0-16.0); White Blood Count 4.3 X10*3/uL (4.8-10.8)
[2021-08-22 08:17] LABS: Estimated Average Glucose 312 mg/dL; Hemoglobin A1c % 12.5 %
[2021-08-22 08:29] LABS: Alanine Aminotransferase 29 U/L (0-40); Albumin Level 4.2 g/dL (3.5-5.0); Alkaline Phosphatase 84 U/L (39-117); Anion Gap 12 (12-20); Aspartate Amino Transferase 19 U/L (5-37); Bilirubin Total 0.5 mg/dL (0.0-1.0); Blood Urea Nitrogen 12 mg/dL (9-16); Calcium 9.8 mg/dL (8.4-10.2); Carbon Dioxide 27 mmol/L (22-29); Chloride 104 mmol/L (96-108); Cholesterol 152 mg/dL; Estimated Glomerular Filt Rate > 60; Glucose Fasting 257 mg/dL (60-99); HDL Cholesterol 35 mg/dL; LDL Cholesterol Calculated 94 mg/dl; Potassium 4.4 mmol/L (3.3-5.1); Sodium 139 mmol/L (135-145); Total Protein 7.9 g/dL (6.5-8.0); Triglycerides 118 mg/dL
== END 2021-08-22 07:06 | disposition home or self-care (01) ==
LOC: HO.LAB 07:05
PROVIDERS: PCP Physician Assistant; Visit Provider Physician Assistant
DX: E11.8 Type 2 diabetes mellitus with unspecified complications (principal); I10 Essential (primary) hypertension
CPT/HCPCS: 36415; 80053; 80061; 83036; 85027

== ENCOUNTER → 2021-09-15 08:18 | Outpatient (BNVA) | payer MEDICARE, OTHER, SELFPAY | PROVIDERS: PCP Physician Assistant; Referring Provider Physician Assistant; Visit Provider Internal Medicine | DX: R07.2 Precordial pain (principal); I10 Essential (primary) hypertension; E78.5 Hyperlipidemia, unspecified; E11.8 Type 2 diabetes mellitus with unspecified complications | CPT/HCPCS: 93005; 99212 ==

== ENCOUNTER 2021-11-21 07:54 | Outpatient (REF) | payer MEDICARE, OTHER, SELFPAY ==
[2021-11-21 08:22] LABS: Hematocrit 42.8 % (42.0-52.0); Hemoglobin 13.9 g/dl (14.0-18.0); Mean Corpuscular HGB Conc 32.5 g/dl (31.0-36.0); Mean Corpuscular Hemoglobin 29.8 pg (27.0-33.0); Mean Corpuscular Volume 91.6 fL (80.0-98.0); Mean Platelet Volume 10.9 fL (9.4-12.4); Platelet Count 198 X10*3/uL (160-400); Red Blood Count 4.67 X10*6/uL (4.60-5.80); Red Cell Distribution Width 12.2 % (11.0-16.0)
[2021-11-21 08:37] LABS: Estimated Average Glucose 326 mg/dL
[2021-11-21 08:50] LABS: Alanine Aminotransferase 23 U/L (0-40); Albumin Level 4.2 g/dL (3.5-5.0); Alkaline Phosphatase 70 U/L (39-117); Anion Gap 13 (12-20); Aspartate Amino Transferase 15 U/L (5-37); Bilirubin Total 0.5 mg/dL (0.0-1.0); Blood Urea Nitrogen 15 mg/dL (9-16); Calcium 9.8 mg/dL (8.4-10.2); Carbon Dioxide 28 mmol/L (22-29); Chloride 102 mmol/L (96-108); Estimated Glomerular Filt Rate > 60; Glucose Fasting 256 mg/dL (60-99); Potassium 4.6 mmol/L (3.3-5.1); Sodium 138 mmol/L (135-145); Total Protein 7.6 g/dL (6.5-8.0)
[2021-11-21 09:11] LABS: Prostate Specific Antigen Scr 0.94 ng/mL (<0.05-4.0); TSH reflex Free T4 3.26 uIU/mL (0.32-4.0)
== END 2021-11-21 07:55 | disposition home or self-care (01) ==
LOC: HO.LAB 07:54
PROVIDERS: PCP Physician Assistant; Visit Provider Physician Assistant
DX: Z12.5 Encounter for screening for malignant neoplasm of prostate (principal); E11.8 Type 2 diabetes mellitus with unspecified complications
CPT/HCPCS: 36415; 80053; 83036; 84153; 84443; 85027

== ENCOUNTER 2022-02-09 14:41 | Outpatient (REF) | payer MEDICARE, OTHER, SELFPAY ==
--- NOTE | ~2022-02-09 | XR_ITS ---
EXAMINATION: XR CHEST CLINICAL INFORMATION: Cough COMPARISON: None TECHNIQUE: Frontal view of the chest was obtained. FINDINGS: Azygos fissure noted. Lungs grossly clear. Heart and pulmonary vessels are normal. XR/XR chest 1V IMPRESSION: No active disease.
[2022-02-10 12:18] LABS: Influenza A PCR NEGATIVE (Negative); Influenza B PCR NEGATIVE (Negative); Resp Syncy Virus RNA Qual PCR NEGATIVE (Negative); SARS COV2 PCR INHOUSE NEGATIVE (Negative)
== END 2022-02-09 14:42 | disposition home or self-care (01) ==
LOC: HO.XRAY 14:41
PROVIDERS: Family Medicine; PCP Physician Assistant; Visit Provider Hospitalist
DX: R05.8 Other specified cough (principal); R09.89 Other specified symptoms and signs involving the circulatory and respiratory systems; Z20.822 Contact with and (suspected) exposure to COVID-19
CPT/HCPCS: 0241U; 71045

== ENCOUNTER 2022-03-02 06:28 | Outpatient (REF) | payer MEDICARE, OTHER, SELFPAY ==
[2022-03-02 07:31] LABS: Hematocrit 42.7 % (42.0-52.0); Hemoglobin 13.7 g/dl (14.0-18.0); Mean Corpuscular HGB Conc 32.1 g/dl (31.0-36.0); Mean Corpuscular Hemoglobin 29.3 pg (27.0-33.0); Mean Corpuscular Volume 91.2 fL (80.0-98.0); Mean Platelet Volume 10.5 fL (9.4-12.4); Platelet Count 204 X10*3/uL (160-400); Red Blood Count 4.68 X10*6/uL (4.60-5.80); Red Cell Distribution Width 12.2 % (11.0-16.0)
[2022-03-02 07:41] LABS: Estimated Average Glucose 278 mg/dL; Hemoglobin A1c % 11.3 %
[2022-03-02 07:50] LABS: Alanine Aminotransferase 27 U/L (0-40); Albumin Level 4.3 g/dL (3.5-5.0); Alkaline Phosphatase 68 U/L (39-117); Anion Gap 12 (12-20); Aspartate Amino Transferase 17 U/L (5-37); Bilirubin Total 0.6 mg/dL (0.0-1.0); Blood Urea Nitrogen 9 mg/dL (9-16); Calcium 9.4 mg/dL (8.4-10.2); Carbon Dioxide 28 mmol/L (22-29); Chloride 103 mmol/L (96-108); Cholesterol 155 mg/dL; Estimated Glomerular Filt Rate > 60; Glucose Fasting 231 mg/dL (60-99); HDL Cholesterol 36 mg/dL; LDL Cholesterol Calculated 83 mg/dl; Potassium 4.7 mmol/L (3.3-5.1); Sodium 138 mmol/L (135-145); Total Protein 7.9 g/dL (6.5-8.0); Triglycerides 184 mg/dL
[2022-03-02 08:14] LABS: TSH reflex Free T4 5.08 uIU/mL (0.32-4.0)
[2022-03-02 09:02] LABS: Free T4 (Free Thyroxine) 0.92 ng/dL (0.71-1.85)
== END 2022-03-02 06:29 | disposition home or self-care (01) ==
LOC: HO.LAB 06:28
PROVIDERS: PCP Physician Assistant; Visit Provider Physician Assistant
DX: E11.8 Type 2 diabetes mellitus with unspecified complications (principal)
CPT/HCPCS: 36415; 80053; 80061; 83036; 84439; 84443; 85027

== ENCOUNTER 2022-06-07 06:59 | Outpatient (REF) | payer MEDICARE, OTHER, SELFPAY ==
[2022-06-07 07:53] LABS: Anion Gap 18 (12-20); Blood Urea Nitrogen 11 mg/dL (9-16); Calcium 10.2 mg/dL (8.4-10.2); Carbon Dioxide 26 mmol/L (22-29); Chloride 104 mmol/L (96-108); Estimated Glomerular Filt Rate > 60; Glucose Random 269 mg/dL (60-115); Potassium 4.8 mmol/L (3.3-5.1); Sodium 143 mmol/L (135-145)
[2022-06-07 08:16] LABS: TSH reflex Free T4 4.97 uIU/mL (0.32-4.0)
[2022-06-07 08:53] LABS: Free T4 (Free Thyroxine) 0.97 ng/dL (0.71-1.85)
== END 2022-06-07 07:00 | disposition home or self-care (01) ==
LOC: HO.LAB 06:59
PROVIDERS: PCP Physician Assistant; Visit Provider Physician Assistant
DX: I10 Essential (primary) hypertension (principal); R79.89 Other specified abnormal findings of blood chemistry
CPT/HCPCS: 36415; 80048; 84439; 84443

== ENCOUNTER → 2022-08-19 09:42 | Outpatient (REF) | payer MEDICARE, OTHER, SELFPAY ==
--- NOTE | 2022-08-19 09:47 | ECG_ITS ---
Test Reason : chest pain Blood Pressure : / mmHG Vent. Rate : 092 BPM Atrial Rate : 092 BPM P-R Int : 144 ms QRS Dur : 078 ms QT Int : 340 ms P-R-T Axes : 041 -26 068 degrees QTc Int : 420 ms Sinus rhythm with sinus arrhythmia with occasional Premature ventricular complexes Nonspecific T wave abnormality Abnormal ECG When compared with ECG of 22-JUL-2020 14:41, Premature ventricular complexes are now Present Referred By: Zofia Bernstein Electronically Signed By:TAPAN DESHPANDE MD
== END ==
LOC: HO.CARD 09:42
PROVIDERS: PCP Physician Assistant; Visit Provider Nurse Practitioner Family
DX: R07.89 Other chest pain (principal)
CPT/HCPCS: 93005

== ENCOUNTER → 2022-09-20 08:12 | Outpatient (BNVA) | payer MEDICARE, OTHER, SELFPAY | PROVIDERS: PCP Physician Assistant; Referring Provider Physician Assistant; Visit Provider Internal Medicine | DX: R07.2 Precordial pain (principal); I10 Essential (primary) hypertension; E78.5 Hyperlipidemia, unspecified; E11.8 Type 2 diabetes mellitus with unspecified complications | CPT/HCPCS: 99212 ==

== ENCOUNTER → 2022-10-12 12:10 | Outpatient (BNVA) | payer MEDICARE, SELFPAY | PROVIDERS: PCP Physician Assistant; Visit Provider Internal Medicine Endocrinology, Diabetes & Metabolism | DX: E11.8 Type 2 diabetes mellitus with unspecified complications (principal); Z79.84 Long term (current) use of oral hypoglycemic drugs | CPT/HCPCS: 82947; 99202 ==

== ENCOUNTER 2022-11-17 06:59 | Outpatient (REF) | payer MEDICARE, OTHER, SELFPAY ==
[2022-11-17 07:13] LABS: MANUAL DIFF FLAG NO
[2022-11-17 08:04] LABS: Basophils Percent Auto 0.2 % (0-2); Eosinophils Absolute Auto 0.3 X10*3/uL (0.0-0.4); Eosinophils Percent Auto 6.6 % (0-4); Hematocrit 44.2 % (42.0-52.0); Hemoglobin 14.3 g/dl (14.0-18.0); Imm Gran Abs Auto 0.01 X10*3/uL (0.00-0.03); Imm Gran Pct Auto 0.2 % (0.0-0.4); Lymphocytes Absolute Auto 1.8 X10*3/uL (1.2-4.9); Lymphocytes Percent Auto 40.3 % (20-40); Mean Corpuscular HGB Conc 32.4 g/dl (31.0-36.0); Mean Corpuscular Hemoglobin 29.3 pg (27.0-33.0); Mean Corpuscular Volume 90.6 fL (80.0-98.0); Mean Platelet Volume 10.4 fL (9.4-12.4); Monocytes Absolute Auto 0.4 X10*3/uL (0.1-1.2); Monocytes Percent Auto 9.4 % (2-11); Neutrophils Absolute Auto 1.9 x10*3/uL (2.0-8.3); Neutrophils Percent Auto 43.3 % (45-73); Platelet Count 214 X10*3/uL (160-400); Red Blood Count 4.88 X10*6/uL (4.60-5.80); Red Cell Distribution Width 12.1 % (11.0-16.0); White Blood Count 4.4 X10*3/uL (4.8-10.8)
[2022-11-17 08:37] LABS: Alanine Aminotransferase 34 U/L (0-40); Albumin Level 4.3 g/dL (3.5-5.0); Alkaline Phosphatase 65 U/L (39-117); Anion Gap 15 (12-20); Aspartate Amino Transferase 24 U/L (5-37); Bilirubin Total 0.6 mg/dL (0.0-1.0); Blood Urea Nitrogen 13 mg/dL (9-16); Calcium 9.6 mg/dL (8.4-10.2); Carbon Dioxide 27 mmol/L (22-29); Chloride 102 mmol/L (96-108); Cholesterol 159 mg/dL; Estimated Glomerular Filt Rate > 60; Glucose Random 214 mg/dL (60-115); HDL Cholesterol 37 mg/dL; LDL Cholesterol Calculated 89 mg/dl; Sodium 139 mmol/L (135-145); Total Protein 7.7 g/dL (6.5-8.0); Triglycerides 169 mg/dL
[2022-11-17 08:39] LABS: Creatinine Urine 144.73 mg/dL; Microalbum/Creatinine Ratio Ur 169.9 ug/mg cr
[2022-11-17 08:51] LABS: Estimated Average Glucose 280 mg/dL; Hemoglobin A1c % 11.4 %
[2022-11-17 08:55] LABS: TSH reflex Free T4 4.54 uIU/mL (0.32-4.0)
== END 2022-11-17 07:00 | disposition home or self-care (01) ==
LOC: HO.LAB 06:59
PROVIDERS: PCP Physician Assistant; Visit Provider Nurse Practitioner Family
DX: Z13.0 Encounter for screening for diseases of the blood and blood-forming organs and certain disorders involving the immune mechanism (principal); Z13.29 Encounter for screening for other suspected endocrine disorder; I10 Essential (primary) hypertension; E78.5 Hyperlipidemia, unspecified; E11.8 Type 2 diabetes mellitus with unspecified complications
CPT/HCPCS: 36415; 80053; 80061; 82043; 83036; 84439; 84443; 85025

== ENCOUNTER → 2023-01-03 08:35 | Outpatient (BNVA) | payer MEDICARE, OTHER, SELFPAY | PROVIDERS: PCP Physician Assistant; Visit Provider Dietitian, Registered | DX: E11.8 Type 2 diabetes mellitus with unspecified complications (principal) | CPT/HCPCS: 97802 ==

== ENCOUNTER → 2023-01-19 09:36 | Outpatient (BNVA) | payer MEDICARE, OTHER, SELFPAY | PROVIDERS: PCP Physician Assistant; Visit Provider Internal Medicine Endocrinology, Diabetes & Metabolism | DX: E11.8 Type 2 diabetes mellitus with unspecified complications (principal); Z79.84 Long term (current) use of oral hypoglycemic drugs | CPT/HCPCS: 99212 ==

== ENCOUNTER → 2023-02-01 09:35 | Outpatient (BNVA) | payer MEDICARE, OTHER, SELFPAY | PROVIDERS: PCP Physician Assistant; Visit Provider Registered Nurse Diabetes Educator | DX: E11.8 Type 2 diabetes mellitus with unspecified complications (principal); E87.5 Hyperkalemia; Z13.1 Encounter for screening for diabetes mellitus; Z13.29 Encounter for screening for other suspected endocrine disorder | CPT/HCPCS: 99211 ==

== ENCOUNTER 2023-02-18 08:01 | Outpatient (REF) | payer MEDICARE, SELFPAY ==
[2023-02-18 09:31] LABS: Estimated Average Glucose 223 mg/dL; Hemoglobin A1c % 9.4 %
[2023-02-18 10:14] LABS: Anion Gap 13 (12-20); Blood Urea Nitrogen 12 mg/dL (9-16); Calcium 10.2 mg/dL (8.4-10.2); Carbon Dioxide 27 mmol/L (22-29); Chloride 104 mmol/L (96-108); Estimated Glomerular Filt Rate > 60; Glucose Random 154 mg/dL (60-115); Potassium 5.4 mmol/L (3.3-5.1); Sodium 139 mmol/L (135-145)
[2023-02-18 10:26] LABS: TSH reflex Free T4 3.52 uIU/mL (0.32-4.0)
== END 2023-02-18 08:02 | disposition home or self-care (01) ==
LOC: HO.LAB 08:01
PROVIDERS: PCP Physician Assistant; Visit Provider Nurse Practitioner Family
DX: E11.8 Type 2 diabetes mellitus with unspecified complications (principal); Z13.29 Encounter for screening for other suspected endocrine disorder; Z13.1 Encounter for screening for diabetes mellitus
CPT/HCPCS: 36415; 80048; 83036; 84443

== ENCOUNTER 2023-02-22 09:05 | Outpatient (REF) | payer MEDICARE, OTHER, SELFPAY ==
--- NOTE | ~2023-02-22 | XR_ITS ---
EXAMINATION: XR FOOT, RIGHT CLINICAL INFORMATION: First toe cellulitis COMPARISON: None available. TECHNIQUE: AP, lateral, and oblique views of the right foot. FINDINGS: Bones of the midfoot are well aligned. No tarsal, metatarsal or phalangeal fracture. Minimal degenerative changes of the first MTP joint and scattered IP joints. Small posterior and plantar calcaneal enthesophytes. No focal soft tissue swelling. No radiopaque foreign body. Prominent vascular calcifications. No gross ankle joint effusion. XR/XR foot RT 2V IMPRESSION: Mild degenerative changes of the right foot. No fracture.
== END 2023-02-22 09:06 | disposition home or self-care (01) ==
LOC: HO.XRAY 09:05
PROVIDERS: PCP Physician Assistant; Visit Provider Physician Assistant
DX: L84 Corns and callosities (principal)
CPT/HCPCS: 73620

== ENCOUNTER → 2023-02-24 08:37 | Outpatient (BNVA) | payer MEDICARE, SELFPAY | PROVIDERS: PCP Physician Assistant; Visit Provider Dietitian, Registered | DX: E11.8 Type 2 diabetes mellitus with unspecified complications (principal) | CPT/HCPCS: 97803 ==

== ENCOUNTER 2023-03-29 07:44 | Outpatient (AMB) | payer MEDICARE, SELFPAY ==
--- NOTE | 2023-03-29 08:24 | MHC.AMDMED ---
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 Accompanied by: Self / Same As Patient Allergies sitagliptin [From JANUVIA] Allergy (Unknown, Verified 02/22/23 08:42) vomitting pioglitazone [From Actos] Adverse Reaction (Intermediate, Verified 02/22/23 08:42) palpatations HPI Comprehensive Diabetes Asmnt Most Recent Diabetes Results: Microalb/Creat Ratio 169.9 ug/mg cr 11/17/22 Cholesterol 159 mg/dL 11/17/22 HDL Cholesterol 37 mg/dL 11/17/22 Triglycerides 169 mg/dL 11/17/22 Creatinine 0.82 mg/dL (0.5-1.4) 02/18/23 Blood Urea Nitrogen 12 mg/dL (9-16) 02/18/23 Sodium 139 mmol/L (135-145) 02/18/23 Potassium 5.4 mmol/L (3.3-5.1) H 02/18/23 Chloride 104 mmol/L (96-108) 02/18/23 Carbon Dioxide 27 mmol/L (22-29) 02/18/23 Calcium 10.2 mg/dL (8.4-10.2) 02/18/23 AST 24 U/L (5-37) 11/17/22 ALT 34 U/L (0-40) 11/17/22 Total Protein 7.7 g/dL (6.5-8.0) 11/17/22 Albumin 4.3 g/dL (3.5-5.0) 11/17/22 PFSH Medical History (Updated 02/22/23 @ 09:03 by Vikash Pompa PA-C) Allergic rhinitis Atypical chest pain Diabetes Essential hypertension Hospital discharge follow-up HTN (hypertension) Hyperlipidemia Nausea & vomiting Other and unspecified hyperlipidemia Stroke Type 2 diabetes mellitus with unspecified complications Surgical History Hx of colonoscopy Family History Father No problems noted. 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 Patient has also not started Trulicity 0.75 mg patient reports pharmacy told him he needs a prior authorization. Checked patient's drug formulary Trulicity should be covered without PA, sent message to Dr. Herrmann to resend prescription to patient's preferred pharmacy Reviewed patient's current blood sugars Patient reports blood sugars below: Date?? Breakfast/Fasting? ? ? Pre-Lunch? ? ? Pre-Supper? ? ? Bedtime? ? ? Notes ? Plan/Goal:? DME form faxed to [facility], prior DME sent to [facility] but patient insurance outside of network Instructed patient to follow-up with clinical nurse educator in 5 weeks Instructed patient to sign up for patient portal as easiest way to get in touch with providers Coding Level of Care Code Est Pt Level 1 (33530) Diagnoses Type 2 diabetes mellitus E11.9 Diabetes mellitus [facility] insulin use: without marine oil terminal superintendent use Diabetes mellitus complication status: without complication
== END 2023-03-29 08:28 | disposition home or self-care (01) ==
PROVIDERS: PCP Physician Assistant; Visit Provider Registered Nurse Diabetes Educator
DX: E11.9 Type 2 diabetes mellitus without complications (principal)

== ENCOUNTER → 2023-03-29 07:44 | Outpatient (BNVA) | payer MEDICARE, SELFPAY | PROVIDERS: Visit Provider Registered Nurse Diabetes Educator | DX: E11.9 Type 2 diabetes mellitus without complications (principal) | CPT/HCPCS: 99211 ==

== ENCOUNTER 2023-04-04 07:57 | Outpatient (AMB) | payer MEDICARE, SELFPAY ==
[2023-04-04 08:28] VITALS: BP 132/70; PULSE 102; BMI 25.9
--- NOTE | 2023-04-04 08:28 | A.OFFVIS_ITS ---
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 Required: No Accompanied by: Self / Same As Patient Allergies sitagliptin [From JANUVIA] Allergy (Unknown, Verified 04/04/23 08:31) vomitting pioglitazone [From Actos] Adverse Reaction (Intermediate, Verified 04/04/23 08:31) palpatations Medication List - Last Reconciled 04/04/23 by Magnus Thomas MD amlodipine 10 mg PO DAILY aspirin 81 mg PO DAILY 90 days blood sugar diagnostic (FreeStyle Lite Strips) As directed tests 4 X/day blood-glucose meter (FreeStyle Lite Meter kit) As directed tests 4 X/day dulaglutide (Trulicity) 0.75 mg (0.5 mL) subcut QWEEK flash glucose scanning reader (FreeStyle Enrrique 2 [place]) As directed flash glucose sensor (FreeStyle Enrrique 2 Sensor kit) changes every 2 wks glimepiride 4 mg (2 x 2 mg) PO BID lisinopril 10 mg PO DAILY 90 days metformin 1,000 mg PO BID 90 days simvastatin 40 mg PO QPM HPI HPI Comments History of Present Illness Details Rivera returns for follow-up. In the past, was seen regarding chest pain. No known coronary disease, but he has multiple vascular risk factors. Has poorly controlled diabetes, hypertension, dyslipidemia. Overall, he is doing good. No complaints like angina or shortness of breath or in fact anything cardiac sounding. He states he is getting along fine. [facility] Medical History (Updated 02/22/23 @ 09:03 by Vikash Pompa PA-C) Allergic rhinitis Atypical chest pain Diabetes Essential hypertension Hospital discharge follow-up HTN (hypertension) Hyperlipidemia Nausea & vomiting Other and unspecified hyperlipidemia Stroke Type 2 diabetes mellitus with unspecified complications Surgical History Hx of colonoscopy Family History Father No problems noted. Mother Myocardial infarction Sister Diabetes Hypertension Social History Housing: House Alcohol intake: current Alcohol intake frequency: holidays/special occasions only Alcohol type: beer Patient Tobacco Use Status: Never used Tobacco e-Cigarette/Vaping Use: Never Used Second Hand Smoke Exposure: No service: No Current occupational status: retired Cognitive needs: No Hearing needs: No Vision needs: No Review of Systems Const Denies weakness ENT Denies dizziness Card Denies chest pain, Denies chest pain with activity, Denies syncope, Denies rapid heart rate, Denies pedal edema, Denies edema, Denies leg edema, Denies lightheadedness, Denies palpitations, Denies dyspnea, Denies dyspnea on exertion and Denies orthopnea Resp Denies cough, Denies dyspnea and Denies dyspnea on exertion GI Denies hematochezia and Denies change in stool character Musc Denies abnormal gait, Denies muscle cramps, Denies muscle weakness, Denies numbness, Denies radiating pain into limb and Denies tingling Neuro Denies abnormal gait, Denies dizziness, Denies syncope, Denies numbness, Denies tingling and Denies weakness Endo Denies palpitations Physical Exam Vital Signs: Last Vital Signs Pulse 102 H 04/04/23 08:28 BP 132/70 04/04/23 08:28 BMI result Body Mass Index 25.9 Const General: comfortable and no acute distress Orientation/consciousness: patient oriented x3 HEENT Other: Unremarkable Head: Yes normal to inspection Neck Neck: Yes normal visual inspection Chest Chest palpation & inspection: normal inspection of the chest Resp Auscultation: clear to auscultation bilaterally Cardio Palpation: normal PMI Heart sounds: S1 normal heart sound present, S2 normal heart sound present, no gallops, Murmur heart sound present systolic II/ and at the right sternal border and no rubs GI Palpation (GI): Soft to palpation Back/Spine/Pelvis Other: unremarkable Skin General skin exam: no rashes or lesions noted Neuro General: patient oriented x3 Extrem General: Yes normal to inspection Psych Mental Status: mental status grossly normal Office Procedures EKG Details: EKG with sinus rhythm at 87/Min; premature atrial complexes in a bigeminal pattern; leftward axis; [place] [id number], Complete Assessment & Plan Assessment & Plan (1) Precordial chest pain: Code(s): R07.2 - Precordial pain (2) Type 2 diabetes mellitus with unspecified complications: Code(s): E11.8 - Type 2 diabetes mellitus with unspecified complications (3) Essential hypertension: Code(s): I10 - Essential (primary) hypertension (4) Other and unspecified hyperlipidemia: Code(s): E78.5 - Hyperlipidemia, unspecified Plan Cardiac studies reviewed. EKG with sinus rhythm and frequent supraventricular ectopy. Echocardiogram 2020 -showed normal LVEF, 55-60%, moderate calcification of aortic valve and mild mitral annular calcification. Myocardial perfusion imaging study 2020 showed normal perfusion. Due to numerous risk factors including poorly controlled diabetes, we can repeat his ischemic workup as it has been quite some time. To complete repeat echocardiogram/stress test. Orders: Orders CA stress test Today R07.2 - Precordial pain CA echo transthoracic complete Today I25.10 - Atherosclerotic heart disease of [place] coronary artery without angina pectoris NM cardiolite stress test Today R07.2 - Precordial pain Coding Level of Care Code Est Pt Level 4 (78450) Diagnoses Precordial chest pain R07.2 Type 2 diabetes mellitus with unspecified complications E11.8 Essential hypertension I10 Other and unspecified hyperlipidemia E78.5 CPT Codes EKG - CPT: 56572-[id number], Complete ([id number])
== END 2023-04-04 09:03 | disposition home or self-care (01) ==
PROVIDERS: Visit Provider Internal Medicine
DX: R07.2 Precordial pain (principal); E11.8 Type 2 diabetes mellitus with unspecified complications; I10 Essential (primary) hypertension; E78.5 Hyperlipidemia, unspecified
CPT/HCPCS: 93010; 99214

== ENCOUNTER → 2023-04-04 07:57 | Outpatient (BNVA) | payer MEDICARE, SELFPAY | PROVIDERS: Visit Provider Internal Medicine | DX: R07.2 Precordial pain (principal); I10 Essential (primary) hypertension; E11.8 Type 2 diabetes mellitus with unspecified complications; E78.5 Hyperlipidemia, unspecified | CPT/HCPCS: 93005; 99212 ==

== ENCOUNTER → 2023-04-15 10:32 | Outpatient (BNVA) | payer MEDICARE, SELFPAY | PROVIDERS: PCP Physician Assistant; Visit Provider Internal Medicine Endocrinology, Diabetes & Metabolism ==

== ENCOUNTER 2023-04-26 08:20 | Outpatient (AMB) | payer MEDICARE, SELFPAY ==
--- NOTE | 2023-04-26 08:21 | A.OFFVIS_ITS ---
Intake Vital Signs 04/26/23 08:26 Height 5 ft 11 in Weight 188 lb 4.396 oz BMI 26.3 BP 134/72 Blood Pressure Location Lt brachial Position Sitting Pulse 45 L Pulse Source Pulse Oximeter Intake Visit Reasons: f/u Type 2 DM Intake Note: Patient present today to follow up on Type 2 Diabetes Mellitus. Patient receives DME supplies through: Pharmacy Last Diabetic Eye exam: About 4 years ago Last Podiatry Visit: 03/29/2023 Random Glucose:148 mg/dl HgA1C: 9.4% 02/18/23 Online Content Coordinator Required: No Accompanied by: Self / Same As Patient Allergies sitagliptin [From JANUVIA] Allergy (Unknown, Verified 04/26/23 08:27) vomitting pioglitazone [From Actos] Adverse Reaction (Intermediate, Verified 04/26/23 08:27) palpatations Medication List - Last Reconciled 04/26/23 by Peter Herrmann MD amlodipine 10 mg PO DAILY aspirin 81 mg PO DAILY 90 days blood sugar diagnostic (FreeStyle Lite Strips) As directed tests 4 X/day blood-glucose meter (FreeStyle Lite Meter kit) As directed tests 4 X/day dulaglutide (Trulicity) 0.75 mg (0.5 mL) subcut QWEEK flash glucose scanning reader (FreeStyle Enrrique 2 [place]) As directed flash glucose sensor (FreeStyle Enrrique 2 Sensor kit) changes every 2 wks glimepiride 4 mg (2 x 2 mg) PO BID lisinopril 10 mg PO DAILY 90 days metformin 1,000 mg PO BID 90 days simvastatin 40 mg PO QPM HPI HPI Comments History of Present Illness Details 72 YO M who is seen in consultation for T2DM at the request of PCP. Initially diagnosed with T2DM in 10 yrs . Was initially started on treatment with metformin . Current regimen glimeprimide 4 mg BID metformin 1000 mg BID. Trulicity 0.75 mg Qwkly Unfortunately, patient did not bring sensor or glucometer to follow-up visit Not Reports low sugars . Family history of T2DM in sisters have Type 2 DM and mother . Not Has eyes checked yearly, last eye exam , denies retinopathy.Needs to make appt Denies neuropathy, sees podiatry every 3 mos Denies nephropathy, on KHALIDA/ARB. Has HLD, on statin. [Denies] CAD. \Not Had diabetes education. Had an injection site reaction during the 2nd injection of Trulicity. [facility] Medical History (Updated 02/22/23 @ 09:03 by Vikash Pompa PA-C) Allergic rhinitis Atypical chest pain Diabetes Essential hypertension Hospital discharge follow-up HTN (hypertension) Hyperlipidemia Nausea & vomiting Other and unspecified hyperlipidemia Stroke Type 2 diabetes mellitus with unspecified complications Surgical History Hx of colonoscopy Family History Father No problems noted. Mother Myocardial infarction Sister Diabetes Hypertension Social History Housing: House Alcohol intake: current Alcohol intake frequency: holidays/special occasions only Alcohol type: beer Patient Tobacco Use Status: Never used Tobacco e-Cigarette/Vaping Use: Never Used Second Hand Smoke Exposure: No service: No Current occupational status: retired Cognitive needs: No Hearing needs: No Vision needs: No Physical Exam Absence of Cushingoid features. Absence of acromegalic features. Neck exam reveals nl size thyroid about 15 gms. No thyroid nodules palpable. No carotid bruits present. Lungs CTA. Heart S1 S2, Reg R/R. No M/R/ G. Skin exam reveals absence of vitiligo or acanthosis nigricans. Abdominal exam reveals Soft NT/ND with NA BS. No organomegaly present. There is erythema and some small indurated site where Trulicity injection took place Neck Other: . Extrem Other: Visual exam of foot performed. No ulcerations or open lesions. No onchomycosis, no callouses.Pulses 2 + distally Sensation intact to monofilament exam. 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 The plan is to switch the patient from Trulicity to Ozempic 0.5 mg q.week and titrate as tolerated. Once again went over side effects of Ozempic including but not limited to nausea, vomiting and rare risk of pancreatitis. I will also give the patient samples of Dexcom G7 I will attempt to get approved by the insurance company. Patient is not able to perform fingersticks because of lack of manual dexterity and requires a Sensor. I will send the patient to f/u with ict educator Ozempic 0.5 mg samples given to patient lot number and [id number] expiration 10/12/2024 Medications: New semaglutide (Ozempic) 0.5 mg (0.736 mL) subcut QWEEK 3 mL 4RF blood-glucose sensor (Dexcom G7 Sensor device) As directed change every 10 days 3 ea 4RF Discontinued flash glucose scanning reader (FreeStyle Enrrique 2 [place]) Discontinued Reason: Doctor's Order As directed 1 ea 0RF E11.8 - Type 2 diabetes mellitus with unspecified complications flash glucose sensor (FreeStyle Enrrique 2 Sensor kit) Discontinued Reason: Doctor's Order changes every 2 wks 2 ea 5RF E11.8 - Type 2 diabetes mellitus with unspecified complications dulaglutide (Trulicity) Discontinued Reason: Doctor's Order 0.75 mg (0.5 mL) subcut QWEEK 2 mL 5RF Coding Level of Care Code Est Pt Level 4 (58496) Diagnoses Type 2 diabetes mellitus with unspecified complications E11.8
[2023-04-26 08:26] VITALS: BP 134/72; PULSE 45; BMI 26.3
[2023-04-26 08:37] LABS: Glucose, Whole Blood 148 mg/dL (60-115)
== END 2023-04-26 09:13 | disposition home or self-care (01) ==
PROVIDERS: PCP Physician Assistant; Visit Provider Internal Medicine Endocrinology, Diabetes & Metabolism
DX: E11.8 Type 2 diabetes mellitus with unspecified complications (principal)
CPT/HCPCS: 99214

== ENCOUNTER → 2023-04-26 08:20 | Outpatient (BNVA) | payer MEDICARE, SELFPAY | PROVIDERS: PCP Physician Assistant; Visit Provider Internal Medicine Endocrinology, Diabetes & Metabolism | DX: E11.8 Type 2 diabetes mellitus with unspecified complications (principal) | CPT/HCPCS: 82947; 99212 ==

== ENCOUNTER 2023-05-17 10:11 | Outpatient (AMB) | payer MEDICARE, SELFPAY ==
--- NOTE | 2023-05-17 10:21 | MHC.PC.OV ---
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 Required: No Healthcare Management Consultant: Not Required per policy Accompanied by: Self / Same As Patient Allergies dulaglutide [From Trulicity] Allergy (Intermediate, Verified 05/17/23 10:42) Redness of Skin sitagliptin [From JANUVIA] Allergy (Unknown, Verified 05/17/23 10:42) vomitting pioglitazone [From Actos] Adverse Reaction (Intermediate, Verified 05/17/23 10:42) palpatations Medication List - Last Reconciled 05/17/23 by Vikash Pompa PA-C amlodipine 10 mg PO DAILY aspirin 81 mg PO DAILY 90 days blood sugar diagnostic (FreeStyle Lite Strips) As directed tests 4 X/day blood-glucose meter (FreeStyle Lite Meter kit) As directed tests 4 X/day blood-glucose sensor (Dexcom G7 Sensor device) As directed change every 10 days glimepiride 4 mg (2 x 2 mg) PO BID lisinopril 10 mg PO DAILY 90 days metformin 1,000 mg PO BID 90 days semaglutide (Ozempic) 0.5 mg (0.736 mL) subcut QWEEK simvastatin 40 mg PO QPM Tobacco use date assessed: 05/17/23 Fall risk assessment: No Falls in past year Last assessed Fall Risk: 05/17/23 Dental Screening Dental Screen Date: 05/17/23 Did you have a dental visit in the last 12 months?: No Did you have a dental problem in the last 6 months where you did not have access to dental care?: No Was dental information given to patient?: Patient has dentist HPI obstruction of bloodflow to BLEs HPI Details Patient is a 72 year male here today for follow-up visit.? Patient has a past medical history significant for hypertension, uncontrolled diabetes, hyperlipidemia. . Recently had a insurance and report he had low blood flow to his lower extremities. He concern--> reports having left knee worsening pain and instability. Has been evaluated in the past and was told he may need to replacement. He would like to be re-evaluated by orthopedic surgeon about a total knee arthroplasty. . Diabetes:? 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 Endocrinology started ozempic and feels his blood sugars are much better controlled. ?Now talking to a museum educator and has continues glucose monitor.. ?He does report his diet is low in carbohydrates and he has not been snacking.? He continues on metformin a 1000 b.i.d and glipermide. Has been unable to afford Farxiga or Jardiance. He has seen dietitian in the past for diabetic diet teaching. [facility] Medical History (Updated 05/17/23 @ 10:57 by Vikash Pompa PA-C) Allergic rhinitis Atypical chest pain Diabetes Essential hypertension Hospital discharge follow-up HTN (hypertension) Hyperlipidemia Nausea & vomiting Other and unspecified hyperlipidemia Stroke Type 2 diabetes mellitus with unspecified complications Surgical History Hx of colonoscopy Family History Father No problems noted. Mother Myocardial infarction Sister Diabetes Hypertension Social History Housing: House Alcohol intake: current Alcohol intake frequency: holidays/special occasions only Alcohol type: beer Patient Tobacco Use Status: Never used Tobacco e-Cigarette/Vaping Use: Never Used Second Hand Smoke Exposure: No service: No Current occupational status: retired Cognitive needs: No Hearing needs: No Vision needs: No Questionnaire Thrive Questionnaire Date Thrive assessed: 02/22/23 VICTOR HUGO-7 AMB Questionnaire VICTOR HUGO-7 Date VICTOR HUGO - 7 assessed: 02/22/23 Source: Developed by Drs. Peter Galdamez, Gala Esquivel, Warren Wayne and colleagues, with an educational xuan from [employer]. Review of Systems Const Denies headache(s) Eyes Denies loss of vision ENT Denies vertigo, Denies dizziness, Denies headache(s) and Denies sore throat Card Denies chest pain, Denies leg edema and Denies lightheadedness Resp Denies cough, Denies hemoptysis and Denies wheezing GI Denies abdominal pain, Denies melena, Denies constipation, Denies diarrhea and Denies vomiting Denies dysuria, Denies urinary frequency and Denies urinary urgency Musc Denies arthralgias, Denies joint swelling, Denies numbness and Denies tingling Neuro Denies Abnormal speech present, Denies behavioral changes, Denies vertigo, Denies dizziness, Denies headache(s), Denies loss of vision, Denies memory loss, Denies numbness and Denies tingling Psych Denies anxiety, Denies behavioral changes, Denies depression, Denies memory loss and Denies panic attacks Ankit/Lymph Denies easy bleeding and Denies easy bruising Aller/Immun Denies wheezing Physical exam (Primary Care) Vital Signs: Last Vital Signs Pulse 78 05/17/23 10:24 BP 124/62 05/17/23 10:24 Pulse Ox 99 05/17/23 10:24 Oxygen Delivery Method Room Air 05/17/23 10:24 BMI result Body Mass Index 25.8 Tobacco/Smoking Status: Tobacco use Status Tobacco use date assessed 05/17/23 05/17/23 10:30 Patient Tobacco Use Status Never used Tobacco 05/17/23 10:30 e-Cigarette/Vaping Use Never Used 05/17/23 10:30 Thrive Assessment: Date of Thrive Assessment Date Thrive assessed 02/22/23 05/17/23 10:30 Const General: healthy appearing, no acute distress, alert and awake Nutritional Appearance: well nourished Orientation/consciousness: oriented to person, oriented to place and oriented to time HENMT Ears: TM's normal bilaterally General nose exam: Normal nasal mucous membranes and turbinates present Eyes Conjunctivae: conjunctivae normal Sclerae: sclerae normal Pupils: Equal, round and reactive pupils present Neck Neck: Yes no lymphadenopathy and Yes no JVD Thyroid: Thyroid normal Carotids: no bruits Resp Effort & Inspection: normal respiratory effort and not tachypneic Auscultation: no crackles, no rales, no rhonchi and no wheezes Cardio Rate: regular rate Rhythm: regular rhythm Heart sounds: no murmurs and normal S1 and S2 GI Palpation (GI): Soft to palpation, nontender, no hepatomegaly and no splenomegaly Auscultation: normal bowel sounds Skin General skin exam: no rashes or lesions noted and dry skin Neuro General: oriented to person, oriented to place and oriented to time Cranial nerves: Yes Equal, round and reactive pupils present Speech: No Abnormal speech present Gait exam (Neuro): Normal gait present Motor exam (neuro): no tremor noted Extrem Right upper extremity: full ROM Left upper extremity: full ROM Right lower extremity: full ROM; no edema Left lower extremity: full ROM; no edema Ankle/foot/toe images: 1. LOWER EXTREMITY ANKLE AND FEET SKIN DISCOLORATION. DELAYED CAPILLARY REFILL NOTED BILATERALLY Psych Mental Status: mental status grossly normal Speech and movement: Normal speech and movement present Affect: normal affect Attitude: cooperative Thought process: Normal thought process present Assessment and Plan Assessment & Plan (1) PAD (peripheral artery disease): Code(s): I73.9 - Peripheral vascular disease, unspecified Plan: PATIENT DOES HAVE SOME DISCOLORATION IN HIS LOWER EXTREMITIES. WILL SEND FOR ARTERIAL ULTRASOUNDS EVALUATE FOR vascular STENOSIS (2) Type 2 diabetes mellitus with unspecified complications: Code(s): E11.8 - Type 2 diabetes mellitus with unspecified complications Plan: PATIENT NOW FOLLOWED BY ENDOCRINOLOGY. Has been placed on list emptying and reports blood sugars have been better. He does have Dexcom 6 continues glucose monitor which has been helpful. Goal A1c is to be below 7.0 (3) HTN (hypertension): Code(s): I10 - Essential (primary) hypertension Qualifiers: Hypertension type: essential hypertension Qualified Code(s): I10 - Essential (primary) hypertension Plan: Patient's blood pressure acceptable today in office. Will continue current dose of lisinopril with goal blood pressure to be below 140/90 (4) Osteoarthritis of left knee: Code(s): M17.12 - Unilateral primary osteoarthritis, left knee Qualifiers: Osteoarthritis type: primary Qualified Code(s): M17.12 - Unilateral primary osteoarthritis, left knee Plan: He reports his left knee pain and instability has gotten worse. He would like to see orthopedic surgeon again does discuss possible total knee replacement. Orders: Orders US arterial duplex LE Today I73.9 - Peripheral vascular disease, unspecified Referrals Vascular Surgery Referral I73.9 - Peripheral vascular disease, unspecified Orthopedics Referral M17.12 - Unilateral primary osteoarthritis, left knee Coding Level of Care Code Est Pt Level 3 (86080) Diagnoses PAD (peripheral artery disease) I73.9 Type 2 diabetes mellitus with unspecified complications E11.8 HTN (hypertension) I10 Hypertension type: essential hypertension Osteoarthritis of left knee M17.12 Osteoarthritis type: primary
[2023-05-17 10:24] VITALS: BP 124/62; PULSE 78; O2SAT 99; BMI 25.8
== END 2023-05-17 10:57 | disposition home or self-care (01) ==
PROVIDERS: PCP Physician Assistant; Visit Provider Physician Assistant
DX: I73.9 Peripheral vascular disease, unspecified (principal); E11.8 Type 2 diabetes mellitus with unspecified complications; I10 Essential (primary) hypertension; M17.12 Unilateral primary osteoarthritis, left knee
CPT/HCPCS: 99213

== ENCOUNTER → 2023-05-24 08:37 | Outpatient (REF) | payer MEDICARE, OTHER, SELFPAY ==
--- NOTE | ~2023-05-24 | NM_ITS ---
Exercise Myocardial perfusion study Indication: Precordial chest pain to evaluate for myocardial ischemia Technique: The patient was brought in for an exercise perfusion study on 05/24/2023. Patient performed exercise as per Grover protocol and was injected 30 mCi of sestamibi was given intravenously one target HR was achieved. Images were obtained using the SPECT gamma camera interlaced with the gating device. Images were obtained in supine position. Resting perfusion study was performed on 05/25/2023. Patient was administered 30 mCi of sestamibi intravenously at rest. Images were then obtained in supine position. Images obtained with and without CT attenuation. Total DLP 107 mGy-cm. Images were processed with the software and compared side to side in short axis, horizontal long axis and vertical long axis views. Findings: The stress perfusion study showed non attenuated images show minimally reduced uptake in the basal inferior wall of the LV myocardium. Attenuation corrected images show normal uptake of radiotracer in all segments of LV myocardium. The gated study shows normal LV systolic function with calculated LVEF of 59%. LV cavity is normal in size. The gated study shows normal systolic wall thickening and contraction of all segments. There is no transient ischemic dilation. Resting study shows non attenuated images show mildly reduced uptake in the basal inferior and mid inferior wall of the LV myocardium. Attenuation corrected images show normal uptake of segments of LV myocardium. Gating at rest reveals normal systolic wall motion with ejection fraction at 57%. The findings are consistent with normal myocardial perfusion. NM/NM cardiolite stress test Impression: 1. Normal myocardial perfusion 2. Gated LVEF is 59% 3. Transient ischemic dilatation not present Stress EKG is negative for ischemia
--- NOTE | 2023-05-24 08:39 | CA_ITS ---
Acquisition Time: 2023-05-24 09:59:52 Total Exercise Time: 00:06:16 Test Indications: CP Medications: SEE H Protocol: AMOL Max HR: 142 BPM 97% of Pred: 145 BPM Max BP: 166/086 mmHG Max Work Load: 5.3 METS Exercise stress test exercise 6 min 16 sec of Amol protocol (stage two manual increase at 5 min to 2.3 MPH) achieiving 97% MPHR, without anginal symptoms, with HR at 91% at 3 min exercise, with normotensive response to exercise without EKG changes. Nuclear images pending. Test reviewed with Dr. Duenas Referred By: Maulik Duenas Overread By: MAULIK DUENAS
--- NOTE | 2023-05-24 08:39 | CA_ITS ---
Transthoracic Echocardiogram Patient (Last, First, Middle): Rivera Hernandez, Gender: Male Date of : 1950 Age: 73 Procedure Date: 05/24/2023 Procedure Type: Transthoracic Echocardiogram Location: OP Height: 180.34 cm Weight: 83.92 kg BSA: 2.04 m2 Heart Rate: 85 bpm BP: 138 / 78 mmHg Research Assistant Member: SB Referring MD: Magnus Thomas MD Symptoms: I25.10 - Atherosclerotic heart disease of [place] coronary artery without... Study Quality: Adequate ECG Rhythm: Sinus with PACs Conclusions: - The left ventricular systolic function is normal. The visually estimated ejection fraction is between 65-70%. - There is moderate calcification of the aortic valve. - There is mild mitral annular calcification. Findings Left Ventricle Normal left ventricular cavity size. There is mildly increased left ventricular wall thickness. The left ventricular systolic function is normal. The visually estimated ejection fraction is between 65-70%. There is no evidence of regional wall motion abnormalities. Evidence suggests grade I (mild) diastolic dysfunction. Right Ventricle Normal right ventricular cavity size and systolic function. Atria Both atria are normal in size. Aortic Valve There is moderate calcification of the aortic valve. There is no aortic valve stenosis. There is no aortic valve regurgitation. Mitral Valve There is mild mitral annular calcification. There is trace mitral valve regurgitation. There is no mitral valve stenosis. Pulmonic Valve The pulmonic valve is likely normal. Tricuspid Valve Normal tricuspid valve structure. There is trace tricuspid valve regurgitation. There is no evidence of pulmonary hypertension. Great Vessels The asc aorta is normal in size. Venous The inferior vena cava is normal in size and collapses greater than 50% with inspiration. Pericardium/Pleural There is no evidence of pericardial effusion. Prior Study Comparison No significant change compared to prior study dated: 10/03/2020. Reporting delayed due to technical issues. Measurements 2D Linear Measurements IVSd: 1.03 0.6-0.9/0.6-1.0 cm LVIDd: 4.12 3.9-5.3/4.2-5.9 cm LVIDd Index: 2.02 2.4-3.2/2.2-3.1 cm/m2 LVIDs: 2.37 2.0-3.6 cm LVPWd: 1.05 0.7-1.1 cm LA Diam: 3.60 2.7-3.8/3.0-4.0 cm LAIDs Index: 1.76 1.5-2.3 cm/m2 LV Mass: 175.13 67-162/88-224 g LV Mass Index: 85.85 43-95/49-115 g/m2 LVOT Diam: 2.30 3.0+(-)1.3 cm 2D Systolic Function EF 4C: 71.10 >55% Mitral Valve MV Pk E: 0.76 MV PK A: 1.19 MV Decel Time: 118.00 E/A: 0.60 E'Lateral: 4.35 E'Medial: 4.57 E/E' Med: 16.60 E/E' Lat: 17.50 PHT: 35.00 MVA PHT: 6.29 Decel Swift: 6.44 Aortic Valve AoV Pk Bora: 2.14 AoV Mn Bora: 1.46 AoV VTI: 0.33 AoV Pk Grad: 18.00 Aov Mn Grad: 10.00 MOLLY Cont.VTI: 2.56 LVOT LVOT Pk Bora: 1.02 LVOT Mn Bora: 0.77 LVOT VTI: 0.21 LVOT Pk Grad: 4.00 LVOT Mn Grad: 3.00 LVOT Diam: 2.30 LVOT Area: 4.15 Diastolic Function MV Pk E: 0.76 MV Pk A: 1.19 E/A: 0.60 E'Medial: 4.57 E/E' Med: 16.60 E' Laterial: 4.35 E/E' Lat: 17.50 Right Ventricle TAPSE (mm): 25.40 TVS' Bora: 15.80 Tricuspid Valve RA Press: 3.00 Great Vessels Aorta Sinus of Valsalva: 3.70 2.0-3.5 cm Ao Asc: 3.90 2.1-3.4 cm Pulmonary Valve PV Pk Bora: 1.03 Peak PV Grad: 4.00 Updated in Other Vendor System with Status of Final Magnus Thomas MD electronically signed on 05/28/2023 11:22:11 AM with status of Final
== END ==
LOC: HO.CARD 08:37
PROVIDERS: PCP Physician Assistant; Visit Provider Internal Medicine
DX: R07.2 Precordial pain (principal); I25.10 Atherosclerotic heart disease of native coronary artery without angina pectoris
CPT/HCPCS: 78452; 93017; 93306; A9500

== ENCOUNTER → 2023-05-24 08:39 | Outpatient (BNV) | payer MEDICARE, SELFPAY | PROVIDERS: PCP Physician Assistant; Visit Provider Internal Medicine | DX: I25.10 Atherosclerotic heart disease of native coronary artery without angina pectoris (principal) | CPT/HCPCS: 78452; 93016; 93018; 93306 ==

== ENCOUNTER 2023-06-02 08:13 | Outpatient (AMB) | payer MEDICARE, SELFPAY ==
--- NOTE | 2023-06-02 08:44 | MHC.OFFVIS ---
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 Patient reports that he has had pain in the left knee for quite some time now. He is an active gentleman who enjoys walking but his pain has been slowing him down. He explains that the knee feels that it wants to give out on him and has increased pain with increased activity and climbing stairs. He is not taking tylnelol or ibuprofen for the pain. 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 I recommended TKA for him years ago. He is unable to ambulate comfortably for more than a few minutes. He has had injections years ago. The pain is mostly medial. He went for a walk yesterday and over the course of 5 blocks had to stop for 5 times to rest. He he feels his pain is getting worse and he is more interested in curative measures now than at his previous visits. [facility] Medical History Other and unspecified hyperlipidemia Essential hypertension Type 2 diabetes mellitus with unspecified complications Allergic rhinitis Stroke Nausea & vomiting Hospital discharge follow-up Atypical chest pain Diabetes Hyperlipidemia HTN (hypertension) Surgical History Hx of colonoscopy Family History Father No problems noted. Mother Myocardial infarction Sister Diabetes Hypertension Social History Housing: House Alcohol intake: current Alcohol intake frequency: holidays/special occasions only Alcohol type: beer Patient Tobacco Use Status: Never used Tobacco e-Cigarette/Vaping Use: Never Used Second Hand Smoke Exposure: No service: No Current occupational status: retired Cognitive needs: No Hearing needs: No Vision needs: No Review of Systems Const All systems reviewed & are unremarkable except as noted in HPI and below Physical Exam Const General: no acute distress, alert and awake Orientation/consciousness: patient oriented x3 HEENT Head: Yes normocephalic and Yes atraumatic Mouth: moist mucous membranes Eyes General: appearance normal, both eyes and all related structures EOM: EOMs intact bilaterally Chest Other: no audible wheezing. Resp Other: No audible wheezing Effort & Inspection: normal respiratory effort and able to speak in complete sentences Cardio Other: Radial pulse palpable with no rythmic abnormalities Jugular venous distension: no JVD Back/Spine/Pelvis Cervical Spine: normal cervical lordosis Skin General skin exam: turgor normal Rashes: no rashes Neuro General: patient oriented x3 Extrem Other: Left Knee: 5-125 varus thrust with gait ttp medial joint line Psych Appearance: grossly normal Mental Status: mental status grossly normal Speech and movement: Normal speech and movement present Affect: normal affect Attitude: cooperative Results Reviewed Results Reviewed: I personally reviewed relevant radiographs. Severe left knee varus pattern OA Assessment & Plan Assessment & Plan (1) Osteoarthritis of left knee: Code(s): M17.12 - Unilateral primary osteoarthritis, left knee Qualifiers: Osteoarthritis type: primary Qualified Code(s): M17.12 - Unilateral primary osteoarthritis, left knee Plan: This is a 73 year old man with left knee OA. He is diabetic and with HTN. He cannot walk comfortably and has been like this for years. He is scared to have surgery. I have recommended surgery in the past. He feels like he cannot live comfortably. He has pain that prevents him from walking. He is on Ozempic and his HgA1c is decreasing. I recommend TKA. We have discussed this in the past. I discussed this with him and we will proceed forward accordingly. I discussed the risks benefits and alternatives including but not limited to the risk of pain, infection, stiffness, need for further surgery as well as potential medical complications such as blood clots, pulmonary embolism and cardiac complications. Orders: Orders XR knee standing BI Today M25.569 - Pain in unspecified knee Coding Level of Care Code New Pt Level 4 (77194) Diagnoses Primary osteoarthritis of left knee M17.12 Osteoarthritis type: primary
== END 2023-06-02 09:18 | disposition home or self-care (01) ==
PROVIDERS: PCP Physician Assistant; Visit Provider Orthopaedic Surgery
DX: M17.12 Unilateral primary osteoarthritis, left knee (principal)
CPT/HCPCS: 99204

== ENCOUNTER 2023-06-02 08:13 | Outpatient (REF) | payer MEDICARE, OTHER, SELFPAY ==
--- NOTE | ~2023-06-02 | XR_ITS ---
EXAMINATION: XR BOTH KNEES AP STANDING XR LEFT KNEE, 2 VIEWS CLINICAL INFORMATION: Pain. COMPARISON: Most recent left knee radiographs dated 08/07/2018. TECHNIQUE: Standing AP view of both knees and lateral and sunrise views of the left knee. FINDINGS: RIGHT KNEE: No acute fracture or dislocation. No significant joint space narrowing or marginal osteophytes. No osseous erosion. Atherosclerotic calcifications. LEFT KNEE: Severe medial compartment joint space narrowing with mild subchondral sclerosis. Tricompartmental marginal osteophytes. No osseous erosion. No fracture or dislocation. No significant joint effusion. Atherosclerotic calcifications. XR/XR knee LT 2V IMPRESSION: RIGHT KNEE: Unremarkable examination. LEFT KNEE: Tricompartmental osteoarthritis, most severe within the medial compartment. Minimal progression when compared to the prior radiographs.
--- NOTE | ~2023-06-02 | XR_ITS ---
EXAMINATION: XR BOTH KNEES AP STANDING XR LEFT KNEE, 2 VIEWS CLINICAL INFORMATION: Pain. COMPARISON: Most recent left knee radiographs dated 08/07/2018. TECHNIQUE: Standing AP view of both knees and lateral and sunrise views of the left knee. FINDINGS: RIGHT KNEE: No acute fracture or dislocation. No significant joint space narrowing or marginal osteophytes. No osseous erosion. Atherosclerotic calcifications. LEFT KNEE: Severe medial compartment joint space narrowing with mild subchondral sclerosis. Tricompartmental marginal osteophytes. No osseous erosion. No fracture or dislocation. No significant joint effusion. Atherosclerotic calcifications. XR/XR knee standing BI IMPRESSION: RIGHT KNEE: Unremarkable examination. LEFT KNEE: Tricompartmental osteoarthritis, most severe within the medial compartment. Minimal progression when compared to the prior radiographs.
== END 2023-06-02 08:14 | disposition home or self-care (01) ==
LOC: HO.HOSX 08:13
PROVIDERS: PCP Physician Assistant; Visit Provider Orthopaedic Surgery
DX: M17.12 Unilateral primary osteoarthritis, left knee (principal)
CPT/HCPCS: 73560; 73565

== ENCOUNTER 2023-06-15 07:13 | Outpatient (REF) | payer MEDICARE, OTHER, SELFPAY ==
--- NOTE | ~2023-06-15 | US_ITS ---
EXAMINATION: NONINVASIVE ASSESSMENT OF THE ARTERIES OF BOTH LOWER EXTREMITIES INCLUDING BILATERAL LOWER EXTREMITY DUPLEX. CLINICAL INFORMATION: Peripheral vascular disease COMPARISON: None TECHNIQUE: duplex Doppler techniques with wave form analysis and measurement of velocities in the common femoral, profunda femoral, superficial femoral, popliteal, tibial and peroneal arteries. The study was performed only at rest. FINDINGS: RIGHT LEG Common femoral artery: 141 cm/s, Multiphasic Profunda femoris artery: 120 cm/s, Multiphasic Superficial femoral artery (proximal): 119 cm/s, Multiphasic Superficial femoral artery (mid): 122 cm/s, Multiphasic Superficial femoral artery (distal): 75 cm/s, Multiphasic Proximal Popliteal artery: 49 cm/s, Multiphasic Mid posterior tibial artery: 75 cm/s, Multiphasic Peroneal artery: 56 cm/s, monophasic LEFT LEG: Common femoral artery: 137 cm/s, Multiphasic Profunda femoris artery: 71 cm/s, Multiphasic Superficial femoral artery (proximal): 92 cm/s, Multiphasic Superficial femoral artery (mid): 93 cm/s, Multiphasic Superficial femoral artery (distal): 72 cm/s, Multiphasic Proximal Popliteal artery: 74 cm/s, Multiphasic Mid posterior tibial artery: 88 cm/s, Multiphasic Peroneal artery: 88 cm/s, monophasic US/US arterial duplex LE BI IMPRESSION: No hemodynamically significant stenosis in the bilateral lower extremities.
[2023-06-15 07:40] LABS: Hematocrit 40.6 % (42.0-52.0); Hemoglobin 13.6 g/dl (14.0-18.0); Mean Corpuscular HGB Conc 33.5 g/dl (31.0-36.0); Mean Corpuscular Hemoglobin 30.5 pg (27.0-33.0); Mean Platelet Volume 9.8 fL (9.4-12.4); Platelet Count 203 X10*3/uL (160-400); Red Blood Count 4.46 X10*6/uL (4.60-5.80); Red Cell Distribution Width 12.2 % (11.0-16.0); White Blood Count 4.9 X10*3/uL (4.8-10.8)
[2023-06-15 07:55] LABS: Estimated Average Glucose 169 mg/dL; Hemoglobin A1c % 7.5 % (<6.0)
[2023-06-15 08:05] LABS: Alanine Aminotransferase 21 U/L (0-40); Albumin Level 4.6 g/dL (3.5-5.0); Alkaline Phosphatase 59 U/L (39-117); Anion Gap 13 (12-20); Aspartate Amino Transferase 17 U/L (5-37); Bilirubin Total 0.3 mg/dL (0.0-1.0); Blood Urea Nitrogen 8 mg/dL (9-16); Calcium 10.5 mg/dL (8.4-10.2); Carbon Dioxide 27 mmol/L (22-29); Chloride 105 mmol/L (96-108); Cholesterol 126 mg/dL (<200); Estimated Glomerular Filt Rate > 60; Glucose Fasting 127 mg/dL (60-99); HDL Cholesterol 38 mg/dL (>40); LDL Cholesterol Calculated 69 mg/dL (<100); Sodium 140 mmol/L (135-145); Total Protein 8.1 g/dL (6.5-8.0); Triglycerides 96 mg/dL (<150)
[2023-06-15 08:23] LABS: Prostate Specific Antigen Scr 1.07 ng/mL (<0.05-4.0)
== END 2023-06-15 07:14 | disposition home or self-care (01) ==
LOC: HO.US 07:13
PROVIDERS: PCP Physician Assistant; Visit Provider Physician Assistant
DX: Z12.5 Encounter for screening for malignant neoplasm of prostate (principal); I73.9 Peripheral vascular disease, unspecified; E11.8 Type 2 diabetes mellitus with unspecified complications; E78.5 Hyperlipidemia, unspecified; I10 Essential (primary) hypertension
CPT/HCPCS: 36415; 80053; 80061; 83036; 84153; 85027; 93925

== ENCOUNTER 2023-06-27 08:22 | Outpatient (AMB) | payer MEDICARE, SELFPAY ==
--- NOTE | 2023-06-27 08:42 | A.OFFPC_ITS ---
Vital Signs 06/27/23 08:44 Height 5 ft 11 in Weight 181 lb 2 oz BMI 25.3 BP 124/60 Blood Pressure Location Rt brachial Position Sitting Pulse 73 Pulse Source Pulse Oximeter Pulse Oximetry (%) 97 Oxygen Delivery Method Room Air Intake Visit Reasons: f/u DMII / HTN Intake Note: Patient is here to follow up on DMII, HTN. 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 per policy Accompanied by: Self / Same As Patient Allergies dulaglutide [From Trulicity] Allergy (Intermediate, Verified 06/27/23 09:04) Redness of Skin sitagliptin [From JANUVIA] Allergy (Unknown, Verified 06/27/23 09:04) vomitting pioglitazone [From Actos] Adverse Reaction (Intermediate, Verified 06/27/23 09:04) palpatations Medication List - Last Reconciled 06/27/23 by Vikash Pompa PA-C amlodipine 10 mg PO DAILY aspirin 81 mg PO DAILY 90 days blood sugar diagnostic (FreeStyle Lite Strips) As directed tests 4 X/day blood-glucose meter (FreeStyle Lite Meter kit) As directed tests 4 X/day blood-glucose sensor (Dexcom G7 Sensor device) As directed change every 10 days glimepiride 4 mg (2 x 2 mg) PO BID lisinopril 10 mg PO DAILY 90 days metformin 1,000 mg PO BID 90 days semaglutide (Ozempic) 0.5 mg (0.736 mL) subcut QWEEK simvastatin 40 mg PO QPM Tobacco use date assessed: 06/27/23 Fall risk assessment: No Falls in past year Last assessed Fall Risk: 06/27/23 Dental Screening Dental Screen Date: 06/27/23 Did you have a dental visit in the last 12 months?: No Did you have a dental problem in the last 6 months where you did not have access to dental care?: No Was dental information given to patient?: No HPI f/u DMII / HTN HPI Details Patient is a 73 year male here today for follow-up visit.? Patient has a past medical history significant for hypertension, uncontrolled diabetes, hyperlipidemia. . Left knee osteoarthritis: reports having left knee worsening pain and instability. Has been evaluated in the past and was told he may need to replacement. He has been evaluated by orthopedic surgeon whom recommends total knee replacement. . Diabetes:? Has establish care plate conditioner in a certified adapted physical educator.? Endocrinology started ozempic and feels his blood sugars are much better controlled. ?Now talking to a certified adapted physical educator and has continues glucose monitor.. ?He does report his diet is low in carbohydrates and he has not been snacking.? He continues on metformin a 1000 b.i.d. He has seen dietitian in the past for diabetic diet teaching. Laboratory Tests 11/17/22 02/18/23 06/15/23 07:09 08:30 07:18 RBC 4.46 L Hgb 13.6 L Hemoglobin A1c % 9.4 7.5 H Cholesterol Urine Microalbumin 246.0 06/15/23 07:18 RBC Hgb Hemoglobin A1c % Cholesterol 126 Urine Microalbumin [facility] Medical History Other and unspecified hyperlipidemia Essential hypertension Type 2 diabetes mellitus with unspecified complications Allergic rhinitis Stroke Nausea & vomiting Hospital discharge follow-up Atypical chest pain Diabetes Hyperlipidemia HTN (hypertension) Surgical History Hx of colonoscopy Family History Father No problems noted. Mother Myocardial infarction Sister Diabetes Hypertension Social History Housing: House Alcohol intake: current Alcohol intake frequency: holidays/special occasions only Alcohol type: beer Patient Tobacco Use Status: Never used Tobacco e-Cigarette/Vaping Use: Never Used Second Hand Smoke Exposure: No service: No Current occupational status: retired Cognitive needs: No Hearing needs: No Vision needs: No Questionnaire Thrive Questionnaire Date Thrive assessed: 02/22/23 VICTOR HUGO-7 AMB Questionnaire VICTOR HUGO-7 Date VICTOR HUGO - 7 assessed: 02/22/23 Source: Developed by Drs. Peter Galdamez, Gala Esquivel, Warren Wayne and colleagues, with an educational xuan from [employer]. Review of Systems Const Denies headache(s) Eyes Denies loss of vision ENT Denies vertigo, Denies dizziness, Denies headache(s) and Denies sore throat Card Denies chest pain, Denies leg edema and Denies lightheadedness Resp Denies cough, Denies hemoptysis and Denies wheezing GI Denies abdominal pain, Denies melena, Denies constipation, Denies diarrhea and Denies vomiting Denies dysuria, Denies urinary frequency and Denies urinary urgency Musc Denies arthralgias, Denies joint swelling, Denies numbness and Denies tingling Neuro Denies Abnormal speech present, Denies behavioral changes, Denies vertigo, Denies dizziness, Denies headache(s), Denies loss of vision, Denies memory loss, Denies numbness and Denies tingling Psych Denies anxiety, Denies behavioral changes, Denies depression, Denies memory loss and Denies panic attacks Ankit/Lymph Denies easy bleeding and Denies easy bruising Aller/Immun Denies wheezing Physical exam (Primary Care) Vital Signs: Last Vital Signs Pulse 73 06/27/23 08:44 BP 124/60 06/27/23 08:44 Pulse Ox 97 06/27/23 08:44 Oxygen Delivery Method Room Air 06/27/23 08:44 BMI result Body Mass Index 25.3 Tobacco/Smoking Status: Tobacco use Status Tobacco use date assessed 06/27/23 06/27/23 08:49 Patient Tobacco Use Status Never used Tobacco 06/27/23 08:49 e-Cigarette/Vaping Use Never Used 06/27/23 08:49 Thrive Assessment: Date of Thrive Assessment Date Thrive assessed 02/22/23 06/27/23 08:49 Const General: healthy appearing, no acute distress, alert and awake Nutritional Appearance: well nourished Orientation/consciousness: oriented to person, oriented to place and oriented to time HENTN Ears: TM's normal bilaterally General nose exam: Normal nasal mucous membranes and turbinates present Eyes Conjunctivae: conjunctivae normal Sclerae: sclerae normal Pupils: Equal, round and reactive pupils present Neck Neck: Yes no lymphadenopathy and Yes no JVD Thyroid: Thyroid normal Carotids: no bruits Resp Effort & Inspection: normal respiratory effort and not tachypneic Auscultation: no crackles, no rales, no rhonchi and no wheezes Cardio Rate: regular rate Rhythm: regular rhythm Heart sounds: no murmurs and normal S1 and S2 GI Palpation (GI): Soft to palpation, nontender, no hepatomegaly and no splenomegaly Auscultation: normal bowel sounds Skin General skin exam: no rashes or lesions noted and dry skin Neuro General: oriented to person, oriented to place and oriented to time Cranial nerves: Yes Equal, round and reactive pupils present Speech: No Abnormal speech present Gait exam (Neuro): Normal gait present Motor exam (neuro): no tremor noted Extrem Right upper extremity: full ROM Left upper extremity: full ROM Right lower extremity: full ROM; no edema Left lower extremity: full ROM; no edema Psych Mental Status: mental status grossly normal Speech and movement: Normal speech and movement present Affect: normal affect Attitude: cooperative Thought process: Normal thought process present Assessment and Plan Assessment & Plan (1) Type 2 diabetes mellitus with unspecified complications: Code(s): E11.8 - Type 2 diabetes mellitus with unspecified complications Plan: PATIENT NOW FOLLOWED BY ENDOCRINOLOGY. Continues on Ozempic and blood sugars have been much better controlled. Most recent A1c is 7.5 from 10. Working with a dietitian and now reports eating much better and following a diabetic diet. Has a continues glucose monitor which has helped to manage his blood sugars as well. Goal A1c is to be below 7.0 (2) HTN (hypertension): Code(s): I10 - Essential (primary) hypertension Qualifiers: Hypertension type: essential hypertension Qualified Code(s): I10 - Essential (primary) hypertension Plan: Patient's blood pressure acceptable today in office. Will continue current dose of lisinopril with goal blood pressure to be below 140/90 (3) Osteoarthritis of left knee: Code(s): M17.12 - Unilateral primary osteoarthritis, left knee Qualifiers: Osteoarthritis type: primary Qualified Code(s): M17.12 - Unilateral primary osteoarthritis, left knee Plan: Has followed up with Orthopedics whom recommends a total left knee arthroplasty. Diabetes now much better controlled and recent echo and cardiac stress test unremarkable- appropriate candidate for surgery. He is waiting to be scheduled for surgery at this time.. Orders: Orders Complete Blood Count no Diff 3 Months E11.8 - Type 2 diabetes mellitus with unspecified complications TSH reflex Free T4 3 Months R79.89 - Other specified abnormal findings of blood chemistry Lipid Panel 3 Months E78.2 - Mixed hyperlipidemia Comprehensive [place]. Panel Fast 3 Months E11.8 - Type 2 diabetes mellitus with unspecified complications Medications: Refilled simvastatin 40 mg PO QPM 90 tabs 1RF E78.5 - Hyperlipidemia, unspecified amlodipine 10 mg PO DAILY 90 tabs 1RF I10 - Essential (primary) hypertension Coding Level of Care Code Est Pt Level 4 (92474) Diagnoses Type 2 diabetes mellitus with unspecified complications E11.8 Essential hypertension I10 Hypertension type: essential hypertension Primary osteoarthritis of left knee M17.12 Osteoarthritis type: primary
[2023-06-27 08:44] VITALS: BP 124/60; PULSE 73; O2SAT 97; BMI 25.3
== END 2023-06-27 09:17 | disposition home or self-care (01) ==
PROVIDERS: PCP Physician Assistant; Visit Provider Physician Assistant
DX: E11.8 Type 2 diabetes mellitus with unspecified complications (principal); I10 Essential (primary) hypertension; M17.12 Unilateral primary osteoarthritis, left knee
CPT/HCPCS: 99214

== ENCOUNTER 2023-07-11 08:53 | Outpatient (AMB) | payer MEDICARE, SELFPAY ==
--- NOTE | 2023-07-11 09:03 | MHC.OFFVIS ---
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 He denies any swelling or redness .H says its been going on for a few months. He states he does see a inflated ball molder but they only cut his toe nails Allergies dulaglutide [From Trulicity] Allergy (Intermediate, Verified 07/11/23 09:08) Redness of Skin sitagliptin [From JANUVIA] Allergy (Unknown, Verified 07/11/23 09:08) vomitting pioglitazone [From Actos] Adverse Reaction (Intermediate, Verified 07/11/23 09:08) palpatations HPI New Patient Peña Referred for PVD HPI Details Very pleasant 73-year-old gentleman presents for evaluation regarding peripheral vascular disease. This all began with an insurance company visit where they did a portable bedside MARIEL and reported that it was abnormal. Upon discussion with him he is ambulatory. He can walk several blocks and climb at least 2 flights of stairs with no difficulty whatsoever. Of note he is a nonsmoker. He has been a diabetic for greater than 20 years. In addition his last hemoglobin A1c was 7.5 which was down from nearly a year ago where was almost 13. He now presents to us for vascular follow-up. [facility] Medical History Other and unspecified hyperlipidemia Essential hypertension Type 2 diabetes mellitus with unspecified complications Allergic rhinitis Stroke Nausea & vomiting Hospital discharge follow-up Atypical chest pain Diabetes Hyperlipidemia HTN (hypertension) Surgical History Hx of colonoscopy Family History Father No problems noted. Mother Myocardial infarction Sister Diabetes Hypertension Social History Housing: House Alcohol intake: current Alcohol intake frequency: holidays/special occasions only Alcohol type: beer Patient Tobacco Use Status: Never used Tobacco e-Cigarette/Vaping Use: Never Used Second Hand Smoke Exposure: No service: No Current occupational status: retired Cognitive needs: No Hearing needs: No Vision needs: No Review of Systems Const All systems reviewed & are unremarkable except as noted in HPI and below Reports no additional complaints ENT Reports Normal hearing present Card Denies chest pain, Denies chest pain at rest, Denies chest pain with activity and Denies pedal edema Resp Denies cough GI Denies abdominal pain Musc Denies abnormal gait, Denies muscle cramps and Denies radiating pain into limb Skin/Breast Denies skin ulcer and Denies wounds Neuro Reports Normal hearing present and Denies abnormal gait Psych Reports no additional complaints Physical Exam Vital Signs: BMI result Body Mass Index 25.2 Const General: cooperative, healthy appearing and comfortable Orientation/consciousness: oriented to person, oriented to place and oriented to time HEENT Head: Yes normal to inspection Neck Neck: Yes normal visual inspection Carotids: no bruits Chest Chest palpation & inspection: normal inspection of the chest Resp Effort & Inspection: normal respiratory effort and able to speak in complete sentences Auscultation: clear to auscultation bilaterally, no crackles, no rales, no rhonchi and no wheezes Cardio Other: Palpable bilateral posterior tibial pulses Rate: regular rate Rhythm: regular rhythm Heart sounds: S1 normal heart sound present and S2 normal heart sound present Bruits: no carotid bruits Peripheral pulses: Peripheral pulses 2+ throughout GI Inspection: Yes normal to inspection Skin Wounds: no wounds Hair: normal Neuro General: oriented to person, oriented to place and oriented to time Cranial nerves: Yes CN's II-XII intact bilaterally and Yes Normal hearing present Cognition (Neuro): normal cognition Motor exam (neuro): 5/5 motor strength present throughout Extrem Other: venous exam: No significant superficial varicosities or spider telangiectasias, minimal edema General: No clubbing, No cyanosis and No edema Psych Appearance: grossly normal Mental Status: mental status grossly normal Speech and movement: Normal speech and movement present Results Reviewed Results Reviewed: Arterial testing dated 06/15/2023 demonstrates multi phasic flow down bilateral lower extremities. Written report and images were reviewed. Assessment & Plan Assessment & Plan (1) PAD (peripheral artery disease): Code(s): I73.9 - Peripheral vascular disease, unspecified Plan: In short patient is asymptomatic from his peripheral vascular disease. I do believe it was an over read from the insurance agency which stands to reason as he may have calcified vessels from longstanding diabetes. I did review the ultrasound dated 06/15/2023 which demonstrates multi phasic flow all the way down. In addition he does have palpable pulses. Due to his longstanding history we will surveil him on an annual basis. We did discuss risk factor modification and the importance diabetes control. Thank you for allowing us to assist in his care. If there are any questions or concerns please do not hesitate to contact us. Orders: Orders US arterial duplex LE BI 364 Days I73.9 - Peripheral vascular disease, unspecified Coding Level of Care Code New Pt Level 4 (23234) Diagnoses PAD (peripheral artery disease) I73.9
[2023-07-11 09:07] VITALS: BMI 25.2
== END 2023-07-11 09:58 | disposition home or self-care (01) ==
PROVIDERS: PCP Physician Assistant; Visit Provider Surgery Vascular Surgery
DX: I73.9 Peripheral vascular disease, unspecified (principal)
CPT/HCPCS: 99203

== ENCOUNTER → 2023-07-11 08:53 | Outpatient (BNVA) | payer MEDICARE, SELFPAY | PROVIDERS: PCP Physician Assistant; Visit Provider Surgery Vascular Surgery | DX: I73.9 Peripheral vascular disease, unspecified (principal) | CPT/HCPCS: 99202 ==

== ENCOUNTER 2023-07-21 10:09 | Outpatient (AMB) | payer MEDICARE, SELFPAY ==
--- NOTE | 2023-07-21 10:50 | MHC.AMDMED ---
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: No Accompanied by: Self / Same As Patient Allergies dulaglutide [From Trulicity] Allergy (Intermediate, Verified 07/11/23 09:08) Redness of Skin sitagliptin [From JANUVIA] Allergy (Unknown, Verified 07/11/23 09:08) vomitting pioglitazone [From Actos] Adverse Reaction (Intermediate, Verified 07/11/23 09:08) palpatations HPI Comprehensive Diabetes Asmnt Most Recent Diabetes Results: Cholesterol 126 mg/dL (<200) 06/15/23 HDL Cholesterol 38 mg/dL (>40) L 06/15/23 Triglycerides 96 mg/dL (<150) 06/15/23 Creatinine 0.81 mg/dL (0.5-1.4) 06/15/23 Blood Urea Nitrogen 8 mg/dL (9-16) L 06/15/23 Sodium 140 mmol/L (135-145) 06/15/23 Potassium 5.0 mmol/L (3.3-5.1) 06/15/23 Chloride 105 mmol/L (96-108) 06/15/23 Carbon Dioxide 27 mmol/L (22-29) 06/15/23 Calcium 10.5 mg/dL (8.4-10.2) H 06/15/23 AST 17 U/L (5-37) 06/15/23 ALT 21 U/L (0-40) 06/15/23 Total Protein 8.1 g/dL (6.5-8.0) H 06/15/23 Albumin 4.6 g/dL (3.5-5.0) 06/15/23 [facility] Medical History Other and unspecified hyperlipidemia Essential hypertension Type 2 diabetes mellitus with unspecified complications Allergic rhinitis Stroke Nausea & vomiting Hospital discharge follow-up Atypical chest pain Diabetes Hyperlipidemia HTN (hypertension) Surgical History Hx of colonoscopy Family History Father No problems noted. Mother Myocardial infarction Sister Diabetes Hypertension Social History Housing: House Alcohol intake: current Alcohol intake frequency: holidays/special occasions only Alcohol type: beer Patient Tobacco Use Status: Never used Tobacco e-Cigarette/Vaping Use: Never Used Second Hand Smoke Exposure: No service: No Current occupational status: retired Cognitive needs: No Hearing needs: No Vision needs: No Assessment & Plan Assessment & Plan (1) Type 2 diabetes mellitus with unspecified complications: Code(s): E11.8 - Type 2 diabetes mellitus with unspecified complications Plan: Personal Continuous Glucose Monitor: Patients CGM information reviewed Reviewed patient's sensor data: Hypoglycemia: ? 3% Hyperglycemia:? 19% Time in Range:? 78% Average glucose for the last 2 weeks? 138 mg/dL patient is not currently insulin so patient's insurance will not cover freestyle Enrrique sensors patient has several episodes overnight hypoglycemia he is currently taking two glimepiride 2 mg tabs b.i.d. is also on metformin 1000 mg b.i.d. and Ozempic 0.5 mg weekly recommended to patient he reduce glimepiride 2 mg to 1 tab 2 times a day patient has upcoming appointment with Dr. Herrmann on 08/09/2023 patient given sample Enrrique 2 sensor and instructed to wear sensor 2 weeks before visit with Dr. Herrmann. So Dr. Herrmann can assess of hypoglycemia has resolved Patient able to insert sensor independently at home without issue.? Patient Instructions: reduce glimepiride dose to one [address] sample glucose sensor 14 days before visit with Dr. Herrmann on 08/09/2023 Follow-up with Diabetes Education nurse 6 months Coding Level of Care Code Est Pt Level 1 (75488) Diagnoses Type 2 diabetes mellitus with unspecified complications E11.8
== END 2023-07-21 10:53 | disposition home or self-care (01) ==
LOC: HO.ENCR 10:09
PROVIDERS: PCP Physician Assistant; Visit Provider Registered Nurse Diabetes Educator
DX: E11.8 Type 2 diabetes mellitus with unspecified complications (principal)

== ENCOUNTER → 2023-07-21 10:09 | Outpatient (BNVA) | payer MEDICARE, SELFPAY | PROVIDERS: PCP Physician Assistant; Visit Provider Registered Nurse Diabetes Educator | DX: E11.8 Type 2 diabetes mellitus with unspecified complications (principal) | CPT/HCPCS: 99211 ==

== ENCOUNTER 2023-07-22 12:06 | Outpatient (AMB) | payer MEDICARE, SELFPAY ==
--- NOTE | 2023-07-22 12:32 | A.OFFVIS_ITS ---
Intake Intake Visit Reasons: ov- left knee pain Intake Note: Rivera is a 73 year old male who presnets today for a follow up of his left knee. Patient reports that his knee continues to be rather painful. He hast tried cortisone in the past with little to no relief . Allergies dulaglutide [From Trulicity] Allergy (Intermediate, Verified 07/11/23 09:08) Redness of Skin sitagliptin [From JANUVIA] Allergy (Unknown, Verified 07/11/23 09:08) vomitting pioglitazone [From Actos] Adverse Reaction (Intermediate, Verified 07/11/23 09:08) palpatations HPI ov- left knee pain HPI Details Rivera is a 73 year old Diabetic man who presents to discuss his left knee OA. He complains of worsening pain since his last appointment. Surgery was discussed but his Hgb A1c was ~10. It has been He is unable to ambulate comfortably for more than a few minutes. He has had injections previously but feels they are not helpful. The pain is mostly medial. He cannot walk without pain and he limps He continues to work on improving his HgA1c. His last was 7.5% on 06/15/23. [facility] Medical History Other and unspecified hyperlipidemia Essential hypertension Type 2 diabetes mellitus with unspecified complications Allergic rhinitis Stroke Nausea & vomiting Hospital discharge follow-up Atypical chest pain Diabetes Hyperlipidemia HTN (hypertension) Surgical History Hx of colonoscopy Family History Father No problems noted. Mother Myocardial infarction Sister Diabetes Hypertension Social History Housing: House Alcohol intake: current Alcohol intake frequency: holidays/special occasions only Alcohol type: beer Patient Tobacco Use Status: Never used Tobacco e-Cigarette/Vaping Use: Never Used Second Hand Smoke Exposure: No service: No Current occupational status: retired Cognitive needs: No Hearing needs: No Vision needs: No Review of Systems Const All systems reviewed & are unremarkable except as noted in HPI and below Physical Exam Const General: no acute distress, alert and awake Orientation/consciousness: patient oriented x3 HEENT Head: Yes normocephalic and Yes atraumatic Mouth: moist mucous membranes Eyes General: appearance normal, both eyes and all related structures EOM: EOMs intact bilaterally Chest Other: no audible wheezing. Resp Other: No audible wheezing Effort & Inspection: normal respiratory effort and able to speak in complete sentences Cardio Other: Radial pulse palpable with no rythmic abnormalities Jugular venous distension: no JVD Back/Spine/Pelvis Cervical Spine: normal cervical lordosis Skin General skin exam: turgor normal Rashes: no rashes Neuro General: patient oriented x3 Extrem Other: varus alignment ~10 deg ttp medial join line passive and active ROM 5-125 deg Varus is not correctable Psych Appearance: grossly normal Mental Status: mental status grossly normal Speech and movement: Normal speech and movement present Affect: normal affect Attitude: cooperative Results Reviewed Results Reviewed: I personally reviewed relevant radiographs. Severe left knee varus pattern OA Assessment & Plan Assessment & Plan (1) Osteoarthritis of left knee: Code(s): M17.12 - Unilateral primary osteoarthritis, left knee Qualifiers: Osteoarthritis type: primary Qualified Code(s): M17.12 - Unilateral primary osteoarthritis, left knee Plan: This is a 73 year old man with left knee OA. He is diabetic and with HTN. He cannot walk comfortably and has been like this for years. I have recommended surgery in the past but his diabetes has not been well controlled. He feels like he cannot live comfortably. He has pain that prevents him from walking. He is on Ozempic and his HgA1c is decreasing, though his most recent was 7.5% on 06/15/23. I recommend TKA. I discussed the risks, benefits, and alternatives including, but not limited to, the risk of pain, infection, stiffness, need for further surgery as well as potential medical complications such as blood clots, pulmonary embolism and cardiac complications. I discussed the recovery timeline and process as well as the importance of PT. Rivera is a good candidate for this surgery, and he wishes to proceed with this decision. He will speak with Eileen to schedule this procedure. (2) PAD (peripheral artery disease): Code(s): I73.9 - Peripheral vascular disease, unspecified (3) HTN (hypertension): Code(s): I10 - Essential (primary) hypertension Qualifiers: Hypertension type: essential hypertension Qualified Code(s): I10 - Essential (primary) hypertension (4) Type 2 diabetes mellitus: Code(s): E11.9 - Type 2 diabetes mellitus without complications Qualifiers: Diabetes mellitus complication status: without complication Diabetes mellitus care home insulin use: without intermodal customer service use Qualified Code(s): E11.9 - Type 2 diabetes mellitus without complications Plan Scribed for Sourav Ibarra MD by Mu Live, medical office technician, on 07/22/23 at 12:40 PM, EST. Coding Level of Care Code Est Pt Level 4 (07653) Diagnoses Primary osteoarthritis of left knee M17.12 Osteoarthritis type: primary PAD (peripheral artery disease) I73.9 Essential hypertension I10 Hypertension type: essential hypertension Type 2 diabetes mellitus without complication, without long-term current use of insulin E11.9 Diabetes mellitus complication status: without complication Diabetes mellitus care home insulin use: without care home use
== END 2023-07-22 13:09 | disposition home or self-care (01) ==
PROVIDERS: PCP Physician Assistant; Visit Provider Orthopaedic Surgery
DX: M17.12 Unilateral primary osteoarthritis, left knee (principal); E11.51 Type 2 diabetes mellitus with diabetic peripheral angiopathy without gangrene; I10 Essential (primary) hypertension
CPT/HCPCS: 99214

== ENCOUNTER → 2023-07-22 12:06 | Outpatient (BNVA) | payer MEDICARE, SELFPAY | PROVIDERS: PCP Physician Assistant; Visit Provider Orthopaedic Surgery | DX: M17.12 Unilateral primary osteoarthritis, left knee (principal); I73.9 Peripheral vascular disease, unspecified; I10 Essential (primary) hypertension; E11.9 Type 2 diabetes mellitus without complications | CPT/HCPCS: 99212 ==

== ENCOUNTER 2023-08-03 08:31 | Outpatient (AMB) | payer MEDICARE, SELFPAY ==
--- NOTE | 2023-08-03 08:42 | A.OFFVIS_ITS ---
Intake Vital Signs 08/03/23 08:43 Height 5 ft 11 in Weight 186 lb 15.232 oz BMI 26.1 BP 130/78 Blood Pressure Location Lt brachial Position Sitting Pulse 88 Intake Visit Reasons: Follow up/Pr-op LT TKA 09/28 Dr. 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 Accompanied by: Self / Same As Patient Allergies sitagliptin [From JANUVIA] Allergy (Unknown, Verified 08/03/23 08:46) vomitting dulaglutide [From Trulicity] Adverse Reaction (Intermediate, Verified 08/03/23 08:46) Rash pioglitazone [From Actos] Adverse Reaction (Intermediate, Verified 08/03/23 08:46) palpatations Medication List - Last Reconciled 08/03/23 by Magnus Thomas MD amlodipine 10 mg PO DAILY aspirin 81 mg PO DAILY 90 days blood sugar diagnostic (FreeStyle Lite Strips) As directed tests 4 X/day blood-glucose meter (FreeStyle Lite Meter kit) As directed tests 4 X/day blood-glucose sensor (VoluBill G7 Sensor device) As directed change every 10 days glimepiride 2 mg PO BID lisinopril 10 mg PO DAILY 90 days metformin 1,000 mg PO BID 90 days semaglutide (Ozempic) 0.5 mg (0.736 mL) subcut QWEEK simvastatin 40 mg PO QPM HPI HPI Comments History of Present Illness Details Rivera returns for follow-up. No known coronary disease, but he has multiple vascular risk factors. Has poorly controlled diabetes, hypertension, dyslipidemia. He does not have any anginal-type symptoms or in fact anything cardiac sounding. Does not do too much because of knee pain but can still get around some walking, stairs extra and does not get any cardiac symptoms. He is planning to go for knee surgery in the near future. [facility] Medical History Other and unspecified hyperlipidemia Essential hypertension Type 2 diabetes mellitus with unspecified complications Allergic rhinitis Stroke Nausea & vomiting Hospital discharge follow-up Atypical chest pain Diabetes Hyperlipidemia HTN (hypertension) Surgical History Hx of colonoscopy Family History Father No problems noted. Mother Myocardial infarction Sister Diabetes Hypertension Housing: House Alcohol intake: current Alcohol intake frequency: holidays/special occasions only Alcohol type: beer Patient Tobacco Use Status: Never used Tobacco e-Cigarette/Vaping Use: Never Used Second Hand Smoke Exposure: No service: No Current occupational status: retired Cognitive needs: No Hearing needs: No Vision needs: No Review of Systems Const Denies weakness ENT Denies dizziness Card Denies chest pain, Denies chest pain with activity, Denies syncope, Denies rapid heart rate, Denies pedal edema, Denies edema, Denies leg edema, Denies lightheadedness, Denies palpitations, Denies dyspnea, Denies dyspnea on exertion and Denies orthopnea Resp Denies cough, Denies dyspnea and Denies dyspnea on exertion GI Denies hematochezia and Denies change in stool character Musc Denies abnormal gait, Denies muscle cramps, Denies muscle weakness, Denies numbness, Denies radiating pain into limb and Denies tingling Neuro Denies abnormal gait, Denies dizziness, Denies syncope, Denies numbness, Denies tingling and Denies weakness Endo Denies palpitations Physical Exam Vital Signs: Last Vital Signs Pulse 88 08/03/23 08:43 BP 130/78 08/03/23 08:43 BMI result Body Mass Index 26.1 Const General: comfortable and no acute distress Orientation/consciousness: patient oriented x3 HEENT Other: Unremarkable Head: Yes normal to inspection Neck Neck: Yes normal visual inspection Chest Chest palpation & inspection: normal inspection of the chest Resp Auscultation: clear to auscultation bilaterally Cardio Palpation: normal PMI Heart sounds: S1 normal heart sound present, S2 normal heart sound present, no gallops, no murmurs and no rubs GI Palpation (GI): Soft to palpation Back/Spine/Pelvis Other: unremarkable Skin General skin exam: no rashes or lesions noted Neuro General: patient oriented x3 Extrem General: Yes normal to inspection Psych Mental Status: mental status grossly normal Office Procedures EKG Details: EKG with sinus rhythm at 88/Min; premature supraventricular complexes; nonspecific ST-[place] changes; [place] [id number], Complete Assessment & Plan Assessment & Plan (1) Preoperative cardiovascular examination: Code(s): Z01.810 - Encounter for preprocedural cardiovascular examination (2) Aortic valve sclerosis: Code(s): I35.8 - Other nonrheumatic aortic valve disorders (3) Atrial arrhythmia: Code(s): I49.8 - Other specified cardiac arrhythmias (4) Type 2 diabetes mellitus with unspecified complications: Code(s): E11.8 - Type 2 diabetes mellitus with unspecified complications (5) Essential hypertension: Code(s): I10 - Essential (primary) hypertension (6) Other and unspecified hyperlipidemia: Code(s): E78.5 - Hyperlipidemia, unspecified Plan Cardiac studies reviewed. EKG shows sinus rhythm with frequent supraventricular ectopy. Echocardiogram shows LVEF of 65-70%. Moderate aortic valve calcification and mild mitral annular calcification. In the stress test, able to exercise for 5.3 Mets. No angina. Reach target heart rate. Normal blood pressure response. No EKG evidence of ischemia. Perfusion imaging unremarkable. Overall, multiple cardiovascular risk factors but no obstructive CAD based on about testing. May proceed with knee surgery. Intermediate cardiac risk. Due to aortic valve sclerosis on the echocardiogram, there is an increased risk of adverse stenosis in the future. Will need follow-up. Due to frequent supraventricular ectopy, there is increased risk of atrial fibrillation in the future. Otherwise, aggressive risk factor modification. Follow-up 1 year. In the interim, to call with concerns. Medications: Changed From glimepiride 4 mg (2 x 2 mg) PO BID 360 tabs 0RF E11.8 - Type 2 diabetes mellitus with unspecified complications To glimepiride 2 mg PO BID E11.8 - Type 2 diabetes mellitus with unspecified complications Coding Level of Care Code Est Pt Level 4 (48672) Diagnoses Preoperative cardiovascular examination Z01.810 Aortic valve sclerosis I35.8 Atrial arrhythmia I49.8 Type 2 diabetes mellitus with unspecified complications E11.8 Essential hypertension I10 Other and unspecified hyperlipidemia E78.5 CPT Codes EKG - CPT: 61839-[id number], Complete ([id number])
[2023-08-03 08:43] VITALS: BP 130/78; PULSE 88; BMI 26.1
== END 2023-08-03 09:02 | disposition home or self-care (01) ==
PROVIDERS: PCP Physician Assistant; Visit Provider Internal Medicine
DX: I35.8 Other nonrheumatic aortic valve disorders (principal); I49.8 Other specified cardiac arrhythmias; E11.8 Type 2 diabetes mellitus with unspecified complications; I10 Essential (primary) hypertension; Z01.810 Encounter for preprocedural cardiovascular examination; E78.5 Hyperlipidemia, unspecified
CPT/HCPCS: 93010; 99214

== ENCOUNTER → 2023-08-03 08:31 | Outpatient (BNVA) | payer MEDICARE, SELFPAY | PROVIDERS: PCP Physician Assistant; Visit Provider Internal Medicine | DX: Z01.810 Encounter for preprocedural cardiovascular examination (principal); I49.8 Other specified cardiac arrhythmias; I35.8 Other nonrheumatic aortic valve disorders; I10 Essential (primary) hypertension; E11.65 Type 2 diabetes mellitus with hyperglycemia; E78.5 Hyperlipidemia, unspecified; Z79.4 Long term (current) use of insulin; Z79.84 Long term (current) use of oral hypoglycemic drugs | CPT/HCPCS: 93005; 99212 ==

== ENCOUNTER 2023-08-09 07:57 | Outpatient (AMB) | payer MEDICARE, SELFPAY ==
--- NOTE | 2023-08-09 08:00 | A.OFFVIS_ITS ---
Intake Vital Signs 08/09/23 08:04 Height 5 ft 11 in Weight 188 lb 14.978 oz BMI 26.3 BP 144/72 H Blood Pressure Location Rt brachial Position Sitting Pulse 99 Pulse Source Pulse Oximeter Intake Visit Reasons: f/u Type 2 DM-CONFIRMED Intake Note: Patient present today to follow up on Type 2 Diabetes Mellitus. Last Diabetic Eye exam: Few years ago Last Podiatry Visit: approx a few weeks ago. Random Glucose: 198 mg/dl HgA1C: 7.5% 06/15/23 Triple Valve Tester Required: No Accompanied by: Self / Same As Patient Allergies sitagliptin [From JANUVIA] Allergy (Unknown, Verified 08/09/23 08:05) vomitting dulaglutide [From Trulicity] Adverse Reaction (Intermediate, Verified 08/09/23 08:05) Rash pioglitazone [From Actos] Adverse Reaction (Intermediate, Verified 08/09/23 08:05) palpatations Medication List - Last Reconciled 08/09/23 by Peter Herrmann MD amlodipine 10 mg PO DAILY aspirin 81 mg PO DAILY 90 days blood sugar diagnostic (FreeStyle Lite Strips) As directed tests 4 X/day blood-glucose meter (FreeStyle Lite Meter kit) As directed tests 4 X/day blood-glucose sensor (Dexcom G7 Sensor device) As directed change every 10 days glimepiride 2 mg PO BID lisinopril 10 mg PO DAILY 90 days metformin 1,000 mg PO BID 90 days semaglutide (Ozempic) 0.5 mg (0.736 mL) subcut QWEEK simvastatin 40 mg PO QPM HPI HPI Comments History of Present Illness Details 72 YO M who is seen in consultation for T2DM at the request of PCP. Initially diagnosed with T2DM in 10 yrs . Was initially started on treatment with metformin . Current regimen glimeprimide 2 mg BID metformin 1000 mg BID. Ozempic 0.5 mg Qwkly Enrrique download shows he is using the sensor 95% of the time. Average glucose is 130 with G mi of 6.4%. Variability is 32%. 85% range with 11% hyperglycemia to 1% very hyperglycemic and 3% hypoglycemia for most of the hypoglycemia is occurring overnight Family history of T2DM in sisters have Type 2 DM and mother . Having frequent hypoglycemia overnight Not Has eyes checked yearly, last eye exam , denies retinopathy.Needs to make appt Denies neuropathy, sees podiatry every 3 mos Denies nephropathy, on KHALIDA/ARB. Has HLD, on statin. [Denies] CAD. \Not Had diabetes education. Had an injection site reaction during the 2nd injection of Trulicity. [facility] Medical History Other and unspecified hyperlipidemia Essential hypertension Type 2 diabetes mellitus with unspecified complications Allergic rhinitis Stroke Nausea & vomiting Hospital discharge follow-up Atypical chest pain Diabetes Hyperlipidemia HTN (hypertension) Surgical History Hx of colonoscopy Family History Father No problems noted. Mother Myocardial infarction Sister Diabetes Hypertension Housing: House Alcohol intake: current Alcohol intake frequency: holidays/special occasions only Alcohol type: beer Patient Tobacco Use Status: Never used Tobacco e-Cigarette/Vaping Use: Never Used Second Hand Smoke Exposure: No service: No Current occupational status: retired Cognitive needs: No Hearing needs: No Vision needs: No Assessment & Plan Assessment & Plan (1) Type 2 diabetes mellitus with unspecified complications: Code(s): E11.8 - Type 2 diabetes mellitus with unspecified complications Plan: This 73-year-old male with history of type 2 diabetes being treated with glimepiride and metformin with improved excellent glycemic control known microvascular complications namely micro albuminuria and neuropathy on exam. He does have overnight hypoglycemia The plan is to stop the glimepiride and to increase the Ozempic to 1 mg q.weekly Medications: New semaglutide 1 mg (0.75 mL) subcut QWEEK 3 mL 4RF Discontinued semaglutide (Ozempic) Discontinued Reason: Doctor's Order 0.5 mg (0.736 mL) subcut QWEEK 3 mL 4RF Coding Level of Care Code Est Pt Level 4 (88704) Diagnoses Type 2 diabetes mellitus with unspecified complications E11.8
[2023-08-09 08:04] VITALS: BP 144/72; PULSE 99; BMI 26.3
[2023-08-09 08:14] LABS: Glucose, Whole Blood 198 mg/dL (60-115)
== END 2023-08-09 08:22 | disposition home or self-care (01) ==
PROVIDERS: PCP Physician Assistant; Visit Provider Internal Medicine Endocrinology, Diabetes & Metabolism
DX: E11.8 Type 2 diabetes mellitus with unspecified complications (principal)
CPT/HCPCS: 99214

== ENCOUNTER → 2023-08-09 07:57 | Outpatient (BNVA) | payer MEDICARE, SELFPAY | PROVIDERS: PCP Physician Assistant; Visit Provider Internal Medicine Endocrinology, Diabetes & Metabolism | DX: E11.8 Type 2 diabetes mellitus with unspecified complications (principal) | CPT/HCPCS: 82947; 99212 ==

== ENCOUNTER → 2023-09-01 12:42 | Outpatient (BNVA) | payer MEDICARE, SELFPAY | PROVIDERS: PCP Physician Assistant; Visit Provider Orthopaedic Surgery ==

== ENCOUNTER 2023-09-13 07:08 | Outpatient (REF) | payer MEDICARE, SELFPAY ==
[2023-09-13 07:51] LABS: Hematocrit 41.7 % (42.0-52.0); Hemoglobin 13.6 g/dl (14.0-18.0); Mean Corpuscular HGB Conc 32.6 g/dl (31.0-36.0); Mean Corpuscular Volume 91.9 fL (80.0-98.0); Mean Platelet Volume 10.4 fL (9.4-12.4); Platelet Count 239 X10*3/uL (160-400); Red Blood Count 4.54 X10*6/uL (4.60-5.80); Red Cell Distribution Width 12.3 % (11.0-16.0); White Blood Count 4.3 X10*3/uL (4.8-10.8)
[2023-09-13 08:37] LABS: Alanine Aminotransferase 29 U/L (0-40); Albumin Level 4.4 g/dL (3.5-5.0); Alkaline Phosphatase 66 U/L (39-117); Anion Gap 15 (12-20); Aspartate Amino Transferase 19 U/L (5-37); Bilirubin Total 0.3 mg/dL (0.0-1.0); Blood Urea Nitrogen 12 mg/dL (9-16); Calcium 9.9 mg/dL (8.4-10.2); Carbon Dioxide 27 mmol/L (22-29); Chloride 103 mmol/L (96-108); Cholesterol 180 mg/dL (<200); Estimated Glomerular Filt Rate > 60; Glucose Fasting 187 mg/dL (60-99); Glucose Random 186 mg/dL (60-115); HDL Cholesterol 42 mg/dL (>40); LDL Cholesterol Calculated 104 mg/dL (<100); Potassium 4.5 mmol/L (3.3-5.1); Sodium 140 mmol/L (135-145); Total Protein 8.3 g/dL (6.5-8.0); Triglycerides 173 mg/dL (<150)
[2023-09-13 09:57] LABS: Free T4 (Free Thyroxine) 0.81 ng/dL (0.71-1.85)
== END 2023-09-13 07:09 | disposition home or self-care (01) ==
LOC: HO.LAB 07:08
PROVIDERS: PCP Physician Assistant; Visit Provider Physician Assistant
DX: E87.5 Hyperkalemia (principal); E11.8 Type 2 diabetes mellitus with unspecified complications; E78.2 Mixed hyperlipidemia; R94.6 Abnormal results of thyroid function studies
CPT/HCPCS: 36415; 80048; 80053; 80061; 84439; 84443; 85027

== ENCOUNTER 2023-09-14 08:58 | Outpatient (AMB) | payer MEDICARE, SELFPAY ==
[2023-09-14 09:03] VITALS: BP 156/82; PULSE 98; RESP 17; BMI 25.4
--- NOTE | 2023-09-14 09:03 | A.OFFPC_ITS ---
Vital Signs 09/14/23 09:03 09/14/23 09:45 Height 5 ft 11 in Weight 182 lb 4 oz BMI 25.4 BP 156/82 H 130/86 Blood Pressure Location Lt brachial Position Sitting Respiration 17 Pulse 98 Pulse Source Palpation Intake Visit Reasons: L-Total Knee Arthroplasty 09/28/23 Dr. Ibarra. Intake Note: Patient is here for a Pre-op for left total knee Arthroplasty scheduled with Dr. Rao on 09/28/2023. . Marketing Communications Coordinator Required: No Accompanied by: Self / Same As Patient Allergies sitagliptin [From JANUVIA] Allergy (Unknown, Verified 09/14/23 09:32) vomitting dulaglutide [From Trulicity] Adverse Reaction (Intermediate, Verified 09/14/23 09:32) Rash pioglitazone [From Actos] Adverse Reaction (Intermediate, Verified 09/14/23 09:32) palpatations Medication List - Last Reconciled 09/14/23 by Vikash Pompa PA-C amlodipine 10 mg PO DAILY aspirin 81 mg PO DAILY 90 days blood sugar diagnostic (FreeStyle Lite Strips) As directed tests 4 X/day blood-glucose meter (FreeStyle Lite Meter kit) As directed tests 4 X/day blood-glucose sensor (Dexcom G7 Sensor device) As directed change every 10 days glimepiride 4 mg PO BID lisinopril 10 mg PO DAILY 90 days metformin 1,000 mg PO BID 90 days semaglutide 1 mg (0.75 mL) subcut QWEEK simvastatin 40 mg PO QPM walker Folding Front wheeled walker walker Folding Front wheeled walker Tobacco use date assessed: 09/14/23 Fall risk assessment: No Falls in past year Last assessed Fall Risk: 09/14/23 Dental Screening Dental Screen Date: 09/14/23 Did you have a dental visit in the last 12 months?: Yes Did you have a dental problem in the last 6 months where you did not have access to dental care?: No Was dental information given to patient?: Patient has dentist HPI L-Total Knee Arthroplasty 09/28/23 Dr. Ibarra. HPI Details Patient is a 73 year male here today for a preop visit. He is due for left knee total replacement this month. Patient has a past medical history significant for hypertension, uncontrolled diabetes, hyperlipidemia. . Patient does not have history of Congestive heart failure, MT or CVA. EKG today in office showing sinus arrhythmia which is similar to previous EKGs. He is followed by geological specialist as well and reports he has gotten clearance. Otherwise asymptomatic. Blood pressure in office slightly elevated, does report he is somewhat nervous for upcoming surgery. Repeat blood pressure today in office much more acceptable. He reports home blood pressures have been stable 120s to 130 systolic. . Diabetes: Now followed by endocrinology. Medications have been adjusted and now on Ozempic 1 mg weekly. Unfortunately has not been on Ozempic over the last couple weeks due to insurance coverage. A1c today at 8.9 ?Now talking to a unit educator and has continues glucose monitor.. ?He does report his diet is low in carbohydrates and he has not been snacking.? He continues on metformin a 1000 b.i.d. He has seen dietitian in the past for diabetic diet teaching. Laboratory Tests 06/15/23 09/13/23 09/13/23 07:18 07:12 07:12 RBC 4.54 L Hgb 13.6 L Creatinine 0.85 Random Glucose 186 H Hemoglobin A1c % 7.5 H Cholesterol 180 PFSH Medical History Other and unspecified hyperlipidemia Essential hypertension Type 2 diabetes mellitus with unspecified complications Allergic rhinitis Stroke Nausea & vomiting Hospital discharge follow-up Atypical chest pain Diabetes Hyperlipidemia HTN (hypertension) Surgical History Hx of colonoscopy Family History Father No problems noted. Mother Myocardial infarction Sister Diabetes Hypertension Social History Housing: House Alcohol intake: current Alcohol intake frequency: holidays/special occasions only Alcohol type: beer Patient Tobacco Use Status: Never used Tobacco e-Cigarette/Vaping Use: Never Used Second Hand Smoke Exposure: No service: No Current occupational status: retired Cognitive needs: No Hearing needs: No Vision needs: No Questionnaire PHQ-9 Over the last 2 weeks, how often have you been bothered by any of the following problems? 1. Little interest or pleasure in doing things: not at all 2. Feeling down, depressed, or hopeless: not at all 3. Trouble falling or staying asleep, or sleeping too much: not at all 4. Feeling tired or having little energy: not at all 5. Poor appetite or overeating: not at all 6. Feeling bad about yourself - or that you are a failure or have let yourself or your family down: not at all 7. Trouble concentrating on things, such as reading the newspaper or watching television: not at all 8. Moving or speaking so slowly that other people could have noticed. Or the opposite - being so fidgety or restless that you have been moving around a lot more than usual: not at all 9. Thoughts that you would be better off or of hurting yourself in some way: not at all Total score: 0 Depression Screening Interpretation: Negative Depression Screening Done: Yes 14820 - PHQ-9 Billing: Yes Source: Developed by Drs. Peter Galdamez, Gala Esquivel, Warren Wayne and colleagues, with an educational xuan from [employer]. Thrive Questionnaire Date Thrive assessed: 09/14/23 I am a: Patient What is your living situation today?: I have a steady place to live Within the past 12 months, did the food you bought not last and you didn't have the money to get more?: Never true Within the past 12 months, did you worry whether your food would run out before you got money to buy more?: Never true Do you have trouble paying for medicines?: No Do you have trouble getting transportation to medical appointments?: No Do you have trouble paying your heating and electricity bill?: No Do you have trouble taking care of your child, family member or friend?: No Do you have trouble with day-to-day activities such as bathing, preparing meals, shopping, managing finances, etc.?: No Are you currently unemployed and looking for a job?: No Are you interested in more education?: No Please select the resources that you would like help with: None Currently or been in a relationship where the following occur: no concerns reported AUDIT C Alcohol Use Questionnaire (AUDIT-C) 1. How often do you have a drink containing alcohol?: Never Total Score: 0 VICTOR HUGO-7 AMB Questionnaire VICTOR HUGO-7 Date VICTOR HUGO - 7 assessed: 09/14/23 Feeling nervous, anxious, or on edge: 0 = Not at all Not being able to stop or control worryin = Not at all Worrying too much about different things: 0 = Not at all Trouble relaxin = Not at all Being so restless that it is hard to sit still: 0 = Not at all Becoming easily annoyed or irritable: 0 = Not at all Feeling afraid as if something awful might happen: 0 = Not at all Total VICTOR HUGO-7 score (0-4 normal; 5-9 mild; 10-14 moderate; 15-21 severe): 0 Source: Developed by Drs. Peter Galdamez, Gala Esquivle, Warren Wayne and colleagues, with an educational xuan from [employer]. VICTOR HUGO-7 Assessment Billing VICTOR HUGO-7 Assessment Tool: VICTOR HUGO-7 Assessment 19207 Review of Systems Const Denies headache(s) Eyes Denies loss of vision ENT Denies vertigo, Denies dizziness, Denies headache(s) and Denies sore throat Card Denies chest pain, Denies leg edema and Denies lightheadedness Resp Denies cough, Denies hemoptysis and Denies wheezing GI Denies abdominal pain, Denies melena, Denies constipation, Denies diarrhea and Denies vomiting Denies dysuria, Denies urinary frequency and Denies urinary urgency Musc Denies arthralgias, Denies joint swelling, Denies numbness and Denies tingling Neuro Denies Abnormal speech present, Denies behavioral changes, Denies vertigo, Denies dizziness, Denies headache(s), Denies loss of vision, Denies memory loss, Denies numbness and Denies tingling Psych Denies anxiety, Denies behavioral changes, Denies depression, Denies memory loss and Denies panic attacks Ankit/Lymph Denies easy bleeding and Denies easy bruising Aller/Immun Denies wheezing Physical exam (Primary Care) Vital Signs: Last Vital Signs Pulse 98 09/14/23 09:03 Resp 17 09/14/23 09:03 BP 156/82 H 09/14/23 09:03 BMI result Body Mass Index 25.4 Tobacco/Smoking Status: Tobacco use Status Tobacco use date assessed 09/14/23 09/14/23 09:05 Patient Tobacco Use Status Never used Tobacco 09/14/23 09:05 e-Cigarette/Vaping Use Never Used 09/14/23 09:05 PHQ-9: PHQ-9 Score PHQ-9: Total score 0 09/14/23 09:14 Depression Screening Interpretation: Negative Thrive Assessment: Date of Thrive Assessment Date Thrive assessed 09/14/23 09/14/23 09:05 Currently or been in a relationship where the following occur: no concerns reported Const General: healthy appearing, no acute distress, alert and awake Nutritional Appearance: well nourished Orientation/consciousness: oriented to person, oriented to place and oriented to time HENMT Ears: TM's normal bilaterally General nose exam: Normal nasal mucous membranes and turbinates present Eyes Conjunctivae: conjunctivae normal Sclerae: sclerae normal Pupils: Equal, round and reactive pupils present Neck Neck: Yes no lymphadenopathy and Yes no JVD Thyroid: Thyroid normal Carotids: no bruits Resp Effort & Inspection: normal respiratory effort and not tachypneic Auscultation: no crackles, no rales, no rhonchi and no wheezes Cardio Rate: regular rate Rhythm: regular rhythm Heart sounds: no murmurs and normal S1 and S2 GI Palpation (GI): Soft to palpation, nontender, no hepatomegaly and no splenomegaly Auscultation: normal bowel sounds Skin General skin exam: no rashes or lesions noted and dry skin Neuro General: oriented to person, oriented to place and oriented to time Cranial nerves: Yes Equal, round and reactive pupils present Speech: No Abnormal speech present Gait exam (Neuro): Normal gait present Motor exam (neuro): no tremor noted Extrem Right upper extremity: full ROM Left upper extremity: full ROM Right lower extremity: full ROM; no edema Left lower extremity: full ROM; no edema Psych Mental Status: mental status grossly normal Speech and movement: Normal speech and movement present Affect: normal affect Attitude: cooperative Thought process: Normal thought process present Results AMB Hemoglobin A1c AMB Hemoglobin A1c 8.9 % Last Edit by EDMUND Ring on 09/14/23 09:40 Assessment and Plan Assessment & Plan (1) Pre-op evaluation: Code(s): Z01.818 - Encounter for other preprocedural examination Plan: Patient is a moderate CV risk for surgery due to his comorbidites. Recent labs are stable, EKG showing sinus arrhythmia rate 85. Patient not clear for surgery as today A1c 8.9, patient higher risk for postop complication/infection. He will get back on Ozempic, there was some insurance issue with coverage. Will recheck A1c in 6 weeks if below 8.0 he is okay for surgery (2) Osteoarthritis of left knee: Code(s): M17.12 - Unilateral primary osteoarthritis, left knee Qualifiers: Osteoarthritis type: primary Qualified Code(s): M17.12 - Unilateral primary osteoarthritis, left knee Plan: As per HPI patient has severe osteoarthritis of the left knee. He is due for total knee arthroplasty. (3) HTN (hypertension): Code(s): I10 - Essential (primary) hypertension Qualifiers: Hypertension type: essential hypertension Qualified Code(s): I10 - Essential (primary) hypertension Plan: Patient's blood pressure slightly elevated today in office. Repeat blood pressure reading much improved. He reports blood pressure readings at home been 120s to 130 systolic. Will continue current dose of antihypertensive medication with goal blood pr essure to remain below 140/90 (4) Type 2 diabetes mellitus with unspecified complications: Code(s): E11.8 - Type 2 diabetes mellitus with unspecified complications Plan: Patient's type 2 diabetes followed now by an rapid extractor operator. Patient's type 2 diabetes suboptimally controlled. He reports he has not been on Ozempic over the last several weeks due to insurance coverage. Today's A1c at 8.9. Will recheck A1c in 6 weeks Orders: Orders AMB Hemoglobin A1c Today E11.8 - Type 2 diabetes mellitus with unspecified complications Hemoglobin A1c 6 Weeks E11.9 - Type 2 diabetes mellitus without complications Coding Level of Care Code Est Pt Level 4 (32843) Diagnoses Pre-op evaluation Z01.818 Primary osteoarthritis of left knee M17.12 Osteoarthritis type: primary Essential hypertension I10 Hypertension type: essential hypertension Type 2 diabetes mellitus with unspecified complications E11.8 Additional Codes VICTOR HUGO-7 Assessment Billing - VICTOR HUGO-7 Assessment Tool: VICTOR HUGO-7 Assessment 61872 ([id number])
[2023-09-14 09:45] VITALS: BP 130/86
== END 2023-09-14 10:00 | disposition home or self-care (01) ==
PROVIDERS: PCP Physician Assistant; Visit Provider Physician Assistant
DX: E11.8 Type 2 diabetes mellitus with unspecified complications (principal); Z01.818 Encounter for other preprocedural examination; M17.12 Unilateral primary osteoarthritis, left knee; I10 Essential (primary) hypertension
CPT/HCPCS: 83036; 99214

== ENCOUNTER 2023-09-15 08:06 | Outpatient (AMB) | payer MEDICARE, SELFPAY ==
[2023-09-15 08:31] VITALS: BMI 25.6
--- NOTE | 2023-09-15 08:31 | A.OFFVIS_ITS ---
Intake VS Expanded 09/15/23 08:31 Height 5 ft 11 in Weight 183 lb 10.321 oz BMI 25.6 Intake Visit Reasons: dm/CONFIRMED Allergies sitagliptin [From JANUVIA] Allergy (Unknown, Verified 09/14/23 09:32) vomitting dulaglutide [From Trulicity] Adverse Reaction (Intermediate, Verified 09/14/23 09:32) Rash pioglitazone [From Actos] Adverse Reaction (Intermediate, Verified 09/14/23 09:32) palpatations HPI Nutrition Presentation Details Pt presents for MNT for T2DM Pt forgot to bring glucometer to this appt. Pt reports keeping physically active, going up and down the stairs often at home food frequency: including fish twice a week Drinking water daily with meals or may have 1glass of milk with meals B: crakcers and coffee or oatmeal with almond milk and fruit or banana L: mashed potato and beef and salad or chicken rice soup or vegetable soup D: pasta with meat sauce and water snack on yogurt or cheese and crackers, water etoh: on occ 1-2 beers Most Recent Diabetes Results: Cholesterol 180 mg/dL (<200) 09/13/23 HDL Cholesterol 42 mg/dL (>40) 09/13/23 Triglycerides 173 mg/dL (<150) H 09/13/23 Creatinine 0.85 mg/dL (0.5-1.4) 09/13/23 Blood Urea Nitrogen 12 mg/dL (9-16) 09/13/23 Sodium 140 mmol/L (135-145) 09/13/23 Potassium 4.5 mmol/L (3.3-5.1) 09/13/23 Chloride 103 mmol/L (96-108) 09/13/23 Carbon Dioxide 27 mmol/L (22-29) 09/13/23 Calcium 9.9 mg/dL (8.4-10.2) 09/13/23 AST 19 U/L (5-37) 09/13/23 ALT 29 U/L (0-40) 09/13/23 Total Protein 8.3 g/dL (6.5-8.0) H 09/13/23 Albumin 4.4 g/dL (3.5-5.0) 09/13/23 [facility] Medical History Other and unspecified hyperlipidemia Essential hypertension Type 2 diabetes mellitus with unspecified complications Allergic rhinitis Stroke Nausea & vomiting Hospital discharge follow-up Atypical chest pain Diabetes Hyperlipidemia HTN (hypertension) Surgical History Hx of colonoscopy Family History Father No problems noted. Mother Myocardial infarction Sister Diabetes Hypertension Social History Housing: House Alcohol intake: current Alcohol intake frequency: holidays/special occasions only Alcohol type: beer Patient Tobacco Use Status: Never used Tobacco e-Cigarette/Vaping Use: Never Used Second Hand Smoke Exposure: No service: No Current occupational status: retired Cognitive needs: No Hearing needs: No Vision needs: No Assessment & Plan Assessment & Plan (1) Type 2 diabetes mellitus with unspecified complications: Code(s): E11.8 - Type 2 diabetes mellitus with unspecified complications Plan: Healthy plate method , low sodium concepts Used wt : 83 kg Est kcal as per 25/kg BW: 2067 (40% carb, 30% fat/prot) Est fluid needs: 2100 ml/d (25 ml/kg bw) Rec fiber: increase to 8-10 g per day and gradually increase to 35 g or as tolerated Rec Na: < 2000 mg /d Educate patient on: (R= Reviewed, V = verbalizes understanding N/R= Needs review N/A= not applicable) * Food sources of carbohydrates and serving adequate serving sizes : R , v * Difference between complex carbohydrates and simple carbohydrates, role of fiber: R , v * Differences between fats (MUFA/PUFA/saturated fats, trans fats) and food sources of various fats: R * Food sources of sodium and salt and healthy modifications for heart health and kidney health: R * Vitamins and minerals: R * How to interpret food labels: R * Healthy Plate method concept: R V * Physical activity: benefits and precaution: R, V * hypoglycemia, sign , symptoms and rule of 15 to treat it: R Patient Instructions: Include 1/2 cup to 1 cup of non starchy vegetable at dinner (green beans, carrots, green salad, [place] sprouts- add to soup , as side dish, to the rice, to the meat sauce Keep physically active as able and keep hydrated by having water, fruit/veg infused water monitor your blood sugar 2 hours after a meal at least 2-3 times a week and whenever having symptoms of low blood sugar Coding Level of Care Code Nutr Indiv Subseq (65055) Diagnoses Type 2 diabetes mellitus with unspecified complications E11.8 Time Spent (min) 30
== END 2023-09-15 08:57 | disposition home or self-care (01) ==
PROVIDERS: PCP Physician Assistant; Visit Provider Dietitian, Registered
DX: E11.8 Type 2 diabetes mellitus with unspecified complications (principal)

== ENCOUNTER → 2023-09-15 08:06 | Outpatient (BNVA) | payer MEDICARE, SELFPAY | PROVIDERS: PCP Physician Assistant; Visit Provider Dietitian, Registered | DX: E11.8 Type 2 diabetes mellitus with unspecified complications (principal) | CPT/HCPCS: 97803 ==

== ENCOUNTER 2023-11-07 06:57 | Outpatient (REF) | payer MEDICARE, SELFPAY ==
[2023-11-07 08:17] LABS: Estimated Average Glucose 186 mg/dL; Hemoglobin A1c % 8.1 % (<6.0)
== END 2023-11-07 06:58 | disposition home or self-care (01) ==
LOC: HO.LAB 06:57
PROVIDERS: PCP Physician Assistant; Visit Provider Physician Assistant
DX: E11.9 Type 2 diabetes mellitus without complications (principal)
CPT/HCPCS: 36415; 83036

== ENCOUNTER 2023-11-09 08:54 | Outpatient (AMB) | payer MEDICARE, SELFPAY ==
--- NOTE | 2023-11-09 09:39 | MHC.PC.OV ---
Intake Visit Reasons: Pre-Op (knee replacement) Allergies sitagliptin [From JANUVIA] Allergy (Unknown, Verified 09/14/23 09:32) vomitting dulaglutide [From Trulicity] Adverse Reaction (Intermediate, Verified 09/14/23 09:32) Rash pioglitazone [From Actos] Adverse Reaction (Intermediate, Verified 09/14/23 09:32) palpatations Tobacco use date assessed: 09/14/23 [facility] Medical History Other and unspecified hyperlipidemia Essential hypertension Type 2 diabetes mellitus with unspecified complications Allergic rhinitis Stroke Nausea & vomiting Hospital discharge follow-up Atypical chest pain Diabetes Hyperlipidemia HTN (hypertension) Surgical History Hx of colonoscopy Family History Father No problems noted. Mother Myocardial infarction Sister Diabetes Hypertension Social History Housing: House Alcohol intake: current Alcohol intake frequency: holidays/special occasions only Alcohol type: beer Patient Tobacco Use Status: Never used Tobacco e-Cigarette/Vaping Use: Never Used Second Hand Smoke Exposure: No service: No Current occupational status: retired Cognitive needs: No Hearing needs: No Vision needs: No Questionnaire Thrive Questionnaire Date Thrive assessed: 09/14/23 VICTOR HUGO-7 AMB Questionnaire VICTOR HUGO-7 Date VICTOR HUGO - 7 assessed: 09/14/23 Source: Developed by Drs. Peter Galdamez, Gala Esquivel, Warren Wayne and colleagues, with an educational xuan from [employer]. Physical exam (Primary Care) Tobacco/Smoking Status: Tobacco use Status Tobacco use date assessed 09/14/23 09/14/23 09:05 Patient Tobacco Use Status Never used Tobacco 09/14/23 09:05 e-Cigarette/Vaping Use Never Used 09/14/23 09:05 Thrive Assessment: Date of Thrive Assessment Date Thrive assessed 09/14/23 09/14/23 09:05 Coding
[2023-11-09 09:40] VITALS: BP 140/70; PULSE 85; RESP 16; O2SAT 98; BMI 25.0
--- NOTE | 2023-11-09 09:46 | A.OFFPC_ITS ---
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 Required: No Accompanied by: Self / Same As Patient Allergies sitagliptin [From JANUVIA] Allergy (Unknown, Verified 11/09/23 09:57) vomitting dulaglutide [From Trulicity] Adverse Reaction (Intermediate, Verified 11/09/23 09:57) Rash pioglitazone [From Actos] Adverse Reaction (Intermediate, Verified 11/09/23 09:57) palpatations Medication List - Last Reconciled 11/09/23 by Vikash Pompa PA-C amlodipine 10 mg PO DAILY aspirin 81 mg PO DAILY 90 days blood sugar diagnostic (FreeStyle Lite Strips) As directed tests 4 X/day blood-glucose meter (FreeStyle Lite Meter kit) As directed tests 4 X/day blood-glucose sensor ([facility]) As directed change every 10 days glimepiride 4 mg PO BID lisinopril 10 mg PO DAILY 90 days metformin 1,000 mg PO BID 90 days semaglutide 1 mg (0.75 mL) subcut QWEEK simvastatin 40 mg PO QPM walker Folding Front wheeled walker walker Folding Front wheeled walker Tobacco use date assessed: 09/14/23 Fall risk assessment: No Falls in past year Last assessed Fall Risk: 11/09/23 Dental Screening Dental Screen Date: 11/09/23 Did you have a dental visit in the last 12 months?: Yes Did you have a dental problem in the last 6 months where you did not have access to dental care?: No Was dental information given to patient?: Patient has dentist HPI DM F/U HPI Details Patient is a 73 year male here today for a follow-up visit. . He is due for left knee total replace ment this month. Patient has a past medical history significant for hypertension, uncontrolled diabetes, hyperlipidemia. . Patient does not have history of Congestive heart failure, DC or CVA. EKG today in office showing sinus arrhythmia which is similar to previous EKGs. 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 Otherwise asymptomatic. Blood pressure in office slightly elevated, though on recheck blood pressure stabilized. Repeat blood pressure today in office much more acceptable. He reports home blood pressures have been stable 120s to 130 systolic. . Diabetes: Now followed by endocrinology. Medications have been adjusted and now on Ozempic 1 mg weekly. Most recent A1c at 8.1 from 8.9. Has been following a diabetic diet strictly. Continues to stay active. ?Now talking to a veterinary epidemiologist and has continues glucose monitor.. ?He does report his diet is low in carbohydrates and he has not been snacking.? He continues on metformin a 1000 b.i.d. He has seen dietitian in the past for diabetic diet teaching. [facility] Medical History Other and unspecified hyperlipidemia Essential hypertension Type 2 diabetes mellitus with unspecified complications Allergic rhinitis Stroke Nausea & vomiting Hospital discharge follow-up Atypical chest pain Diabetes Hyperlipidemia HTN (hypertension) Surgical History Hx of colonoscopy Family History Father No problems noted. Mother Myocardial infarction Sister Diabetes Hypertension Social History Housing: House Alcohol intake: current Alcohol intake frequency: holidays/special occasions only Alcohol type: beer Patient Tobacco Use Status: Never used Tobacco e-Cigarette/Vaping Use: Never Used Second Hand Smoke Exposure: No service: No Current occupational status: retired Cognitive needs: No Hearing needs: No Vision needs: No Questionnaire Thrive Questionnaire Date Thrive assessed: 09/14/23 VICTOR HUGO-7 AMB Questionnaire VICTOR HUGO-7 Date VICTOR HUGO - 7 assessed: 09/14/23 Source: Developed by Drs. Peter Galdamez, Gala Esquivel, Warren Wayne and colleagues, with an educational xuan from [employer]. Review of Systems Const Denies headache(s) Eyes Denies loss of vision ENT Denies vertigo, Denies dizziness, Denies headache(s) and Denies sore throat Card Denies chest pain, Denies leg edema and Denies lightheadedness Resp Denies cough, Denies hemoptysis and Denies wheezing GI Denies abdominal pain, Denies melena, Denies constipation, Denies diarrhea and Denies vomiting Denies dysuria, Denies urinary frequency and Denies urinary urgency Musc Denies arthralgias, Denies joint swelling, Denies numbness and Denies tingling Neuro Denies Abnormal speech present, Denies behavioral changes, Denies vertigo, Denies dizziness, Denies headache(s), Denies loss of vision, Denies memory loss, Denies numbness and Denies tingling Psych Denies anxiety, Denies behavioral changes, Denies depression, Denies memory loss and Denies panic attacks Ankit/Lymph Denies easy bleeding and Denies easy bruising Aller/Immun Denies wheezing Physical exam (Primary Care) Vital Signs: Last Vital Signs Pulse 85 11/09/23 09:40 Resp 16 11/09/23 09:40 BP 140/70 H 11/09/23 09:40 Pulse Ox 98 11/09/23 09:40 Oxygen Delivery Method Room Air 11/09/23 09:40 BMI result Body Mass Index 25.0 Tobacco/Smoking Status: Tobacco use Status Tobacco use date assessed 09/14/23 11/09/23 09:47 Patient Tobacco Use Status Never used Tobacco 11/09/23 09:47 e-Cigarette/Vaping Use Never Used 11/09/23 09:47 Thrive Assessment: Date of Thrive Assessment Date Thrive assessed 09/14/23 11/09/23 09:47 Const General: healthy appearing, no acute distress, alert and awake Nutritional Appearance: well nourished Orientation/consciousness: oriented to person, oriented to place and oriented to time HENMT Ears: TM's normal bilaterally General nose exam: Normal nasal mucous membranes and turbinates present Eyes Conjunctivae: conjunctivae normal Sclerae: sclerae normal Pupils: Equal, round and reactive pupils present Neck Neck: Yes no lymphadenopathy and Yes no JVD Thyroid: Thyroid normal Carotids: no bruits Resp Effort & Inspection: normal respiratory effort and not tachypneic Auscultation: no crackles, no rales, no rhonchi and no wheezes Cardio Rate: regular rate Rhythm: regular rhythm Heart sounds: no murmurs and normal S1 and S2 GI Palpation (GI): Soft to palpation, nontender, no hepatomegaly and no splenomegaly Auscultation: normal bowel sounds Skin General skin exam: no rashes or lesions noted and dry skin Neuro General: oriented to person, oriented to place and oriented to time Cranial nerves: Yes Equal, round and reactive pupils present Speech: No Abnormal speech present Gait exam (Neuro): Normal gait present Motor exam (neuro): no tremor noted Extrem Right upper extremity: full ROM Left upper extremity: full ROM Right lower extremity: full ROM; no edema Left lower extremity: full ROM; no edema Psych Mental Status: mental status grossly normal Speech and movement: Normal speech and movement present Affect: normal affect Attitude: cooperative Thought process: Normal thought process present Assessment and Plan Assessment & Plan (1) Type 2 diabetes mellitus with unspecified complications: Code(s): E11.8 - Type 2 diabetes mellitus with unspecified complications Plan: Patient's type 2 diabetes suboptimally controlled. Most recent A1c at 8.1 that has improved from 8.9. Will continue him on his current dose of metformin and Ozempic. Has been following a strict diabetic low carb diet. He anticipates total knee arthroplasty though needs A1c below 8.0. Will follow- up in 3 months and if A1c below 8.0 will clear him for surgery. (2) Osteoarthritis of left knee: Code(s): M17.12 - Unilateral primary osteoarthritis, left knee Qualifiers: Osteoarthritis type: primary Qualified Code(s): M17.12 - Unilateral primary osteoarthritis, left knee Plan: As per HPI, patient is in need of a knee replacement due to severe osteoarthritis of the left knee. At this time trying to get better glycemic control. He is okay with holding off on surgery for the next 3 months as he has a cruise to go on and would like to start working on his yard this spring. Coding Level of Care Code Est Pt Level 4 (38505) Diagnoses Type 2 diabetes mellitus with unspecified complications E11.8 Primary osteoarthritis of left knee M17.12 Osteoarthritis type: primary
[2023-11-09 10:04] VITALS: BP 130/70
== END 2023-11-09 10:10 | disposition home or self-care (01) ==
PROVIDERS: PCP Physician Assistant; Visit Provider Physician Assistant
DX: E11.8 Type 2 diabetes mellitus with unspecified complications (principal); M17.12 Unilateral primary osteoarthritis, left knee
CPT/HCPCS: 99214

== ENCOUNTER 2023-12-19 11:25 | Inpatient (IN) | payer MEDICARE, SELFPAY ==
--- NOTE | ~2023-12-19 | US_ITS ---
EXAMINATION: US arterial duplex LE RT CLINICAL INFORMATION: gangrene toe. occlusion TECHNIQUE: Real-time ultrasound and Doppler techniques (integrating B-mode 2-D vascular images, Doppler spectral analysis and color flow Doppler imaging) were utilized to interrogate the right lower extremity. COMPARISON: Arterial duplex 06/15/23 FINDINGS: RIGHT LEG: Common femoral artery: 116 cm/s, Triphasic Profunda femoris artery: 62 cm/s, Triphasic Superficial femoral artery (proximal): 68 cm/s, Triphasic Superficial femoral artery (mid): 60 cm/s, Triphasic Superficial femoral artery (distal): 57 cm/s, Triphasic Popliteal artery: 51 cm/s, Triphasic Posterior tibial artery: 250 cm/s, monophasic; compared to 74.5 cm/sec with triphasic waveform on 06/15/2023. Peroneal artery: 53 cm/sec, monophasic Anterior tibial artery: 71 cm/sec, monophasic Dorsalis pedis artery: 42.6 cm/sec, monophasic US/US arterial duplex LE RT IMPRESSION: 1. Elevated velocity within the posterior tibial artery suggesting a hemodynamically significant stenosis, new from prior. 2. Monophasic waveforms in the peroneal and anterior tibial arteries.
--- NOTE | ~2023-12-19 | XR_ITS ---
EXAMINATION: XR FOOT, RIGHT CLINICAL INFORMATION: 2nd toe gangrene. osteomyelitis COMPARISON: None available. TECHNIQUE: Three views of the right foot. FINDINGS: No acute abnormality. No fracture or dislocation. No bone destruction. No radiographic evidence for osteomyelitis. No air in the soft tissue. There are small vessel calcifications. Small plantar calcaneal spur. Spur at the posterior calcaneus at the insertion of Achilles tendon. XR/XR foot RT 2V IMPRESSION: No acute abnormality of the foot. No radiographic evidence for osteomyelitis. If there is high clinical suspicion for osteomyelitis, MRI without and with contrast would be more sensitive.
[2023-12-19 13:18] VITALS: BP 158/71; PULSE 88; RESP 17; TEMP 37.2; O2SAT 99; BMI 23.7
--- NOTE | 2023-12-19 13:19 | ED_ITS ---
HPI - General Adult General Chief complaint: General Medical Stated complaint: r 2nd toe black Time Seen by Provider: 12/19/23 15:16 Source: patient, family and old records reviewed Mode of arrival: ambulatory Limitations: no limitations History of Present Illness HPI narrative: 73 yo male with PMH of diabetes, PAD, HLD, HTN, CVA, went on 10 day cruise and just came back. He notes for about a month worsening blackness of R 2nd toe now with some red streaks - denies fevers/chills. Came today after cruise as he and his partner realize it is looking worse and the redness is getting more prominent. MD complaint: black 2nd toe Onset (ago): month(s) (1) Location: right and lower extremity (2nd toe) Radiation: non-radiation Severity: mild Pain Consistency: intermittent Relieving factors: none Exacerbating factors: movement Associated symptoms: rash Treatments prior to arrival: none Related Data Home Medications ?Medication ?Instructions ?Recorded ?Confirmed semaglutide 0.25 mg or 0.5 mg (2 0.5 mg subcut FR 12/19/23 12/19/23 mg/3 mL) subcutaneous pen injector (PEPperPRINT) simvastatin 40 mg tablet 40 mg PO DAILY@1900 12/19/23 12/19/23 Previous Rx's ?Medication ?Instructions ?Recorded aspirin 81 mg tablet,delayed 81 mg PO DAILY 90 days #90 tabs 11/08/22 release blood sugar diagnostic (FreeStyle #100 ea 01/03/23 Lite Strips) blood-glucose meter (FreeStyle #1 ea 01/03/23 Lite Meter kit) blood-glucose sensor ([facility] G7 #3 ea 04/26/23 Sensor device) lisinopril 10 mg tablet 10 mg PO DAILY 90 days #90 tabs 06/17/23 metformin 1,000 mg tablet 1,000 mg PO BID 90 days #180 tabs 06/17/23 amlodipine 10 mg tablet 10 mg PO DAILY #90 tabs 06/27/23 walker #1 ea 09/09/23 walker #1 ea 09/09/23 Allergies Allergy/AdvReac Type Severity Reaction Status Date / Time sitagliptin [From JANUVIA] Allergy Unknown vomitting Verified 12/19/23 13:22 dulaglutide [From Trulicity] AdvReac Intermediate Rash Verified 12/19/23 13:22 pioglitazone [From Actos] AdvReac Intermediate palpatation Verified 12/19/23 13:22 s Review of Systems 2 Review of Systems: Constitutional : No Fever, No Chills ENT/Mouth : No sore throat, No Rhinorrhea Eyes: No Eye Pain, No Swelling, No Redness Cardiovascular : No Chest Pain, No SOB Respiratory : No Cough, No Sputum Gastrointestinal : No Nausea, No Vomiting, No Diarrhea, No abdominal Pain Genitourinary : No Dysuria, No Hematuria Musculoskeletal : No joint pain, No Myalgias, No Joint Swelling Skin : pos Skin Lesions, positive skin rash Neuro : No Weakness, No Numbness, No Headache Psych : No Anxiety, No Depression All other systems reviewed and are negative [facility] Past Medical History Attestation statement: The following information was validated with the patient. Source: old records reviewed Medical History Other and unspecified hyperlipidemia Essential hypertension Type 2 diabetes mellitus with unspecified complications Allergic rhinitis Stroke Nausea & vomiting Hospital discharge follow-up Atypical chest pain Diabetes Hyperlipidemia HTN (hypertension) Surgical History Hx of colonoscopy Family History Family History Father No problems noted. Mother Myocardial infarction Sister Diabetes Hypertension Social History Social History Housing: House Alcohol intake: current Alcohol intake frequency: holidays/special occasions only Alcohol type: beer Patient Tobacco Use Status: Never used Tobacco Smoked in Last 30 Days: No e-Cigarette/Vaping Use: Never Used Second Hand Smoke Exposure: No Use of substances other than those prescribed or required for medical reasons: No Advance Directives: No Advance Directives Information Provided: No Nutrition Risks: No Nutritional Risk service: No Current occupational status: retired Cognitive needs: No Hearing needs: No Vision needs: No Physical Exam ED Vital Signs: Vital Signs - 24 hr 12/19/23 13:18 Temperature 98.9 F Pulse Rate 88 Respiratory Rate 17 Blood Pressure 158/71 H Pulse Oximetry 99 Oxygen Delivery Method Room Air BMI result Body Mass Index 23.7 Appearance: Alert. Oriented X3. No acute distress. Eyes: Pupils equal, round and reactive to light. ENT: Pharynx normal. Neck: Normal inspection. Neck supple. CVS: Normal heart rate and rhythm. Pulses normal. Respiratory: No respiratory distress. Breath sounds normal. Abdomen: Soft and nontender. Skin: Skin warm and dry. Normal skin color. Normal skin turgor. Extremities: No lower extremity edema. R foot redness with warmth streaking up to the dorsum and ankle area - dry gangrene second toe. swelling noted as well. pulse on L foot 2+ R foot 1+ diminished Neuro: Oriented X 3. No motor deficit. No sensory deficit. Course Course Course Narrative: RME: 73-year-old male presents ED for right 2nd toe gangrene has been present for the past month with redness of the foot. Patient denies any fever, chills, chest pain, shortness of breath. Foot is warm to touch. Patient is sent for arterial duplex. Labs x-ray Zosyn ordered. Reevaluation(s) Reevaluation #1: lactic acidosis due to metformin use and not infection or severe sepsis Medications Administered Generic Name Dose Route Start Last Admin Trade Name Freq PRN Reason Stop Dose Admin Atorvastatin Calcium 20 mg 12/19/23 19:00 12/19/23 18:42 Atorvastatin Calcium 20 Mg Tablet PO 20 mg DAILY@1900 ROSENDO Administration Heparin Sodium (Porcine) 5,000 unit 12/19/23 16:45 12/19/23 18:41 Heparin Sodium,Porcine 5,000 Unit/Ml Vial SUBCUT 5,000 unit Q12H ROSENDO Administration Piperacillin Sod/Tazobactam 100 mls @ 200 mls/hr 12/19/23 22:00 12/19/23 22:17 Sod 4.5 gm/ Sodium Chloride IV Infused Q6H ROSENDO Infusion Insulin Glargine 10 unit 12/19/23 21:00 12/19/23 21:45 Insulin Glargine,Hum.Rec.Anlog 100 Unit/Ml 10 Ml Vial SUBCUT 10 unit BEDTIME ROSENDO Administration Insulin Human Lispro 0 unit 12/19/23 21:00 12/19/23 21:46 Insulin Lispro 100 Unit/Ml 3 Ml Vial SUBCUT 4 unit QIDACHS ROSENDO Administration Protocol Discontinued Medications Generic Name Dose Route Start Last Admin Trade Name Freq PRN Reason Stop Dose Admin Piperacillin Sod/Tazobactam 50 mls @ 100 mls/hr 12/19/23 13:19 12/19/23 17:00 Sod 3.375 gm/ Sodium Chloride IV 12/19/23 13:48 Infused ONCE ONE Infusion Sodium Chloride 500 mls @ 500 mls/hr 12/19/23 15:45 12/19/23 19:46 Ns IV 12/19/23 16:44 Infused .Q1H ROSENDO Infusion Vancomycin HCl 2,000 mg in 500 mls @ 250 mls/hr 12/19/23 20:00 12/19/23 21:45 Vancomycin/Ns IV 12/19/23 21:59 Infused ONCE ONE Infusion Medical Decision Making Medical Decision Making [facility] Narrative: 73 yo male with PMH of diabetes, PAD, HLD, HTN, CVA, here with R foot 2nd toe dry gangrene now with warmth and red streaks up the foot - no systemic symptoms will start on IV antibiotics xray and consult vascular surgery does have a warm foot and I can palpate a pedal pulse though it is different from L side. He is on aspirin daily. 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 Simpson aware will follow) Lab Data [facility] Lab Attestation statement: I reviewed the patient's lab results. 12/19/23 14:13 12/19/23 14:13 Labs: Lab Results 12/19/23 12/19/23 Range/Units 14:13 14:14 WBC 7.0 (4.8-10.8) X10*3/uL RBC 4.58 L (4.60-5.80) X10*6/uL Hgb 13.5 L (14.0-18.0) g/dl Hct 41.0 L (42.0-52.0) % MCV 89.5 (80.0-98.0) fL MCH 29.5 (27.0-33.0) pg MCHC 32.9 (31.0-36.0) g/dl RDW 12.3 (11.0-16.0) % Plt Count 235 (160-400) X10*3/uL MPV 10.0 (9.4-12.4) fL Immature Gran % (Auto) 0.3 (0.0-0.4) % Neut % (Auto) 72.6 (45-73) % Lymph % (Auto) 20.4 (20-40) % Woodson % (Auto) 5.7 (2-11) % Eos % (Auto) 0.9 (0-4) % Baso % (Auto) 0.1 (0-2) % Lymph # (Auto) 1.4 (1.2-4.9) X10*3/uL Woodson # (Auto) 0.4 (0.1-1.2) X10*3/uL Eos # (Auto) 0.1 (0.0-0.4) X10*3/uL Baso # (Auto) 0.0 (0.0-0.2) X10*3/uL Abs Immat Gran (auto) 0.02 (0.00-0.03) X10*3/uL Absolute Neuts (auto) 5.1 (2.0-8.3) x10*3/uL Absolute Nucleated RBC 0.000 (0.0-0.012) X10*3/uL Nucleated RBC % (auto) 0.0 (0.0-0.2) /100WBC ESR 73 H (0-15) MM/HR PT 11.5 (11.1-13.3) SEC INR 0.9 (0.9-1.1) APTT 20.8 L (26.0-36.8) SEC Sodium 137 (135-145) mmol/L Potassium 4.0 (3.3-5.1) mmol/L Chloride 98 (96-108) mmol/L Carbon Dioxide 29 (22-29) mmol/L Anion Gap 14 (12-20) BUN 12 (9-16) mg/dL Creatinine 0.91 (0.5-1.4) mg/dL Estim Creat Clear Calc 74.7 Estimated GFR > 60 Random Glucose 315 H (60-115) mg/dL Estimat Average Glucose 212 mg/dL Hemoglobin A1c % 9.0 H (<6.0) % Lactic Acid 3.0 H* (0.5-2.0) mmol/L Calcium 10.5 H D (8.4-10.2) mg/dL Total Bilirubin 0.4 (0.0-1.0) mg/dL AST 9 (5-37) U/L ALT 13 (0-40) U/L Alkaline Phosphatase 94 (39-117) U/L C-Reactive Protein 7.15 H (< or = 0.50) mg/dL Total Protein 9.0 H (6.5-8.0) g/dL Albumin 4.4 (3.5-5.0) g/dL Independent Interpretation I performed an independent interpretation of an: Ultrasound (R BUSINESS INTELLIGENCE ENGINEER monophasic) Radiology Impression Discussion of test interpretation with radiology: I have reviewed the radiologist's reading. Independent Historian Clinical information obtained from an independent historian. History obtained from or confirmed by: Spouse External Record Review External record reviewed: Outpatient record Discharge Plan Discharge Clinical Impression: Dry gangrene, PAD (peripheral artery disease) Cellulitis Qualifiers: Site of cellulitis: extremity Site of cellulitis of extremity: lower extremity Laterality: right Qualified Code(s): L03.115 - Cellulitis of right lower limb Patient Disposition: Admitted As Inpatient
[2023-12-19 14:19] LABS: MANUAL DIFF FLAG NO
[2023-12-19 14:23] LABS: Basophils Percent Auto 0.1 % (0-2); Eosinophils Absolute Auto 0.1 X10*3/uL (0.0-0.4); Eosinophils Percent Auto 0.9 % (0-4); Hemoglobin 13.5 g/dl (14.0-18.0); Imm Gran Abs Auto 0.02 X10*3/uL (0.00-0.03); Imm Gran Pct Auto 0.3 % (0.0-0.4); Lymphocytes Absolute Auto 1.4 X10*3/uL (1.2-4.9); Lymphocytes Percent Auto 20.4 % (20-40); Mean Corpuscular HGB Conc 32.9 g/dl (31.0-36.0); Mean Corpuscular Hemoglobin 29.5 pg (27.0-33.0); Mean Corpuscular Volume 89.5 fL (80.0-98.0); Monocytes Absolute Auto 0.4 X10*3/uL (0.1-1.2); Monocytes Percent Auto 5.7 % (2-11); Neutrophils Absolute Auto 5.1 x10*3/uL (2.0-8.3); Neutrophils Percent Auto 72.6 % (45-73); Platelet Count 235 X10*3/uL (160-400); Red Blood Count 4.58 X10*6/uL (4.60-5.80); Red Cell Distribution Width 12.3 % (11.0-16.0)
[2023-12-19 14:28] LABS: INTERNATIONAL NORM RATIO 0.9 (0.9-1.1); Prothrombin Time 11.5 SEC (11.1-13.3)
[2023-12-19 14:32] LABS: Partial Thromboplastin Time 20.8 SEC (26.0-36.8)
[2023-12-19 14:38] LABS: Alanine Aminotransferase 13 U/L (0-40); Albumin Level 4.4 g/dL (3.5-5.0); Alkaline Phosphatase 94 U/L (39-117); Anion Gap 14 (12-20); Aspartate Amino Transferase 9 U/L (5-37); Bilirubin Total 0.4 mg/dL (0.0-1.0); Blood Urea Nitrogen 12 mg/dL (9-16); C Reactive Protein 7.15 mg/dL (< or = 0.50); Calcium 10.5 mg/dL (8.4-10.2); Carbon Dioxide 29 mmol/L (22-29); Chloride 98 mmol/L (96-108); Creatinine Clr Calc Pharmacy 74.7; Estimated Glomerular Filt Rate > 60; Glucose Random 315 mg/dL (60-115); Sodium 137 mmol/L (135-145)
[2023-12-19 15:06] LABS: Erythrocyte Sedimentation Rate 73 MM/HR (0-15)
[2023-12-19] MEDS: Piperacillin Sodium/Tazobactam 3.375 GM in 0.9 % Sodium Chloride 50 ML IV (16:04)
[2023-12-19] MEDS: 0.9 % Sodium Chloride 500 ML IV (16:05)
[2023-12-19 16:18] LABS: Reflex Lactate? Lactic Acid Added
--- NOTE | 2023-12-19 16:44 | PM.IMHP ---
History of Present Illness Date of Service: 12/19/23 Attending physician on admission: Erika Unger Chief Complaint: Toe infection 73-year-old male with history of ynh-gbvdlxx-dmxnnqzhr type 2 diabetes, hypertension, hyperlipidemia, PVD, CVA presented to the ED earlier today for evaluation of an infection of the right 2nd toe. He reports he went on a 10 day cruise and just came back. He states that over the last month, he has been experiencing worsening blackness of the right 2nd toe now with some warmth, erythema of the foot. He denies any fevers or chills. He reports he does have sensation in the foot. Since arrival, has been slightly hypertensive to 158/71, vital signs otherwise stable. No leukocytosis. Has a stable normocytic anemia renal function and electrolyte levels normal. Glucose 315. Lactic acid 3.0. CRP 7.15, ESR 73. X-ray of the right foot negative for acute abnormality negative for evidence of osteomyelitis. Arterial duplex of the right lower extremity shows hemodynamically significant stenosis of the posterior tibial artery as well as monophasic waveforms in the peroneal and anterior tibial arteries. In the ED, has received IV vancomycin and IV normal saline. NO hx illicit drug use or cigarette smoking. NO alcohol use Review of Systems Review of Systems: General: No fevers, malaise, unintentional weight loss HEENT: No blurred vision, diplopia. No sore throat, nasal congestion, rhinorrhea, sinus pain, ear pain Cardiovascular: No chest pain, palpitations, or leg edema Respiratory: No shortness of breath, wheezing, cough GI: No abdominal pain, nausea, vomiting, diarrhea, constipation, melena, hematochezia : No dysuria, hematuria, increased urinary frequency, decreased urinary output MSK: No myalgia, back pain Neuro: No headaches, weakness, paresthesias Skin: +gangrene toe PMFSH Medical History Other and unspecified hyperlipidemia Essential hypertension Type 2 diabetes mellitus with unspecified complications Allergic rhinitis Stroke Nausea & vomiting Hospital discharge follow-up Atypical chest pain Diabetes Hyperlipidemia HTN (hypertension) Family History Father No problems noted. Mother Myocardial infarction Sister Diabetes Hypertension Surgical History Hx of colonoscopy Social History Household Members: Family Housing: House Do you presently have visiting nurse or other home services: No Alcohol intake: current Alcohol intake frequency: holidays/special occasions only Alcohol type: beer Patient Tobacco Use Status: Never used Tobacco Smoked in Last 30 Days: No e-Cigarette/Vaping Use: Never Used Second Hand Smoke Exposure: No Use of substances other than those prescribed or required for medical reasons: No Currently Displaying Signs/Symptoms of Drug Intoxication Withdrawal: No Have you been hit, kicked, punched, or otherwise hurt by someone within the past year? If so, by whom?: No Do you feel safe in your current relationship?: Yes Is there a partner from a previous relationship who is making you feel unsafe now?: No Are you made to feel afraid or neglected: No Advance Directives: No Advance Directives Information Provided: No Do you have thoughts of harming others: None Do you have a plan to hurt others: No Plan Recently lost weight without trying: No Eating poorly because of decreased appetite: No Nutrition Risks: No Nutritional Risk service: No Current occupational status: retired Cognitive needs: No Hearing needs: No Vision needs: No Meds Allergies Allergy/AdvReac Type Severity Reaction Status Date / Time sitagliptin [From JANUVIA] Allergy Unknown vomitting Verified 12/19/23 13:22 dulaglutide [From Trulicity] AdvReac Intermediate Rash Verified 12/19/23 13:22 pioglitazone [From Actos] AdvReac Intermediate palpatation Verified 12/19/23 13:22 s Active Medications: Current Medications Acetaminophen (Acetaminophen 325 Mg Tablet) 650 mg PO Q6H PRN PRN Reason: Pain, Mild (Pain Scale 1-3) Glucose (Glucose Gel 15 Gm Gel..Gram.) 15 gm PO Q15M PRN; Protocol PRN Reason: per Hypoglycemia Standing Ord. Heparin Sodium (Porcine) (Heparin Sodium,Porcine 5,000 Unit/Ml Vial) 5,000 unit SUBCUT Q12H ROSENDO Piperacillin Sod/Tazobactam (Sod 4.5 gm/ Sodium Chloride) 100 mls @ 200 mls/hr IV Q6H ROSENDO Dextrose (D10) 250 mls @ 750 mls/hr IV Q15M PRN; Protocol PRN Reason: per Hypoglycemia Standing Ord. Insulin Human Lispro (Insulin Lispro 100 Unit/Ml 3 Ml Vial) 0 unit SUBCUT QIDACHS [facility]; Protocol Ondansetron HCl (Ondansetron Hcl 4 Mg/2 Ml Vial) 4 mg IVPUSH Q8H PRN PRN Reason: Nausea and Vomiting Pharmacy Consult (Consult Rx Vancomycin Dosing) 1 each MISCELLANE DAILY PRN PRN Reason: Consult order Senna (Sennosides 8.6 Mg Tablet) 17.2 mg PO BEDTIME PRN PRN Reason: Constipation Sodium Chloride (0.9 % Sodium Chloride Flush 3 Ml Syringe) 3 ml IVFLUSH [facility] Home Medications ?Medication ?Instructions ?Recorded ?Confirmed ?Last Taken ?Type semaglutide 0.25 mg or 0.5 mg (2 0.5 mg subcut FR 12/19/23 12/19/23 12/16/23 History mg/3 mL) subcutaneous pen injector (Ozempic) simvastatin 40 mg tablet 40 mg PO DAILY@1900 12/19/23 12/19/23 12/18/23 History Physical Exam Vital Signs and Narrative: Vital Signs: Last Vital Signs Temp 98.9 F 12/19/23 13:18 Pulse 88 12/19/23 13:18 Resp 17 12/19/23 13:18 BP 158/71 H 12/19/23 13:18 Pulse Ox 99 12/19/23 13:18 O2 Del Method Room Air 12/19/23 13:18 BMI result Body Mass Index 23.7 Constitutional - Awake and Alert, No apparent distress Eyes - PERRLA, EOMI Cardiovascular - S1S2, RRR, No edema. Weak, diminished pedal pulses Respiratory - Normal lung expansion, Normal respiratory effort, No respiratory distress, CTA bilaterally Gastrointestinal - NT / ND; +BS; No rebound or guarding Extremities - no calf tenderness bilaterally, no swelling Skin - Warm/Dry. Dry gangrene with black discoloration of the 2nd great toe wtih surrounding erythema and warmth extending to the distal half of the right foot with warmth Neurological - Alert & oriented x3, CN II-XII in tact, 5/5 strength BUE and BLE Psychological - Appropriate affect Results Labs 12/20/23 05:43 12/20/23 05:43 Labs: Laboratory Results - last 24 hr 12/19/23 12/19/23 14:13 14:14 MCV 89.5 MCH 29.5 MCHC 32.9 RDW 12.3 Plt Count 235 MPV 10.0 Immature Gran % (Auto) 0.3 Neut % (Auto) 72.6 Lymph % (Auto) 20.4 [place] % (Auto) 5.7 Eos % (Auto) 0.9 Baso % (Auto) 0.1 Lymph # (Auto) 1.4 [place] # (Auto) 0.4 Eos # (Auto) 0.1 Baso # (Auto) 0.0 Abs Immat Gran (auto) 0.02 Absolute Neuts (auto) 5.1 Absolute Nucleated RBC 0.000 Nucleated RBC % (auto) 0.0 ESR 73 H PT 11.5 INR 0.9 APTT 20.8 L Anion Gap 14 Estim Creat Clear Calc 74.7 Estimated GFR > 60 Random Glucose 315 H Lactic Acid 3.0 H* Calcium 10.5 H D Total Bilirubin 0.4 AST 9 ALT 13 Alkaline Phosphatase 94 C-Reactive Protein 7.15 H Total Protein 9.0 H Albumin 4.4 Imaging Radiologist's Impressions: Impressions Foot X-Ray 12/19/23 14:00 IMPRESSION: No acute abnormality of the foot. No radiographic evidence for osteomyelitis. If there is high clinical suspicion for osteomyelitis, MRI without and with contrast would be more sensitive. Duplex Scan Lower Extremity Artery 12/19/23 14:24 IMPRESSION: 1. Elevated velocity within the posterior tibial artery suggesting a hemodynamically significant stenosis, new from prior. 2. Monophasic waveforms in the peroneal and anterior tibial arteries. Assessment and Plan (1) Cellulitis: Qualifiers: Laterality: right Site of cellulitis: extremity Site of cellulitis of extremity: lower extremity Qualified Code(s): L03.115 - Cellulitis of right lower limb Status: Acute (2) PAD (peripheral artery disease): Status: Acute (3) Dry gangrene: Status: Acute Plan 73-year-old male with history of hdx-uthzyxa-yuyiwzbgz type 2 diabetes, hypertension, hyperlipidemia, PVD, CVA admitted for further management of dry gangrene and cellulitis R foot #Dry gangrene R 2nd toe with cellulitis RLE -ESR 73, CRP 7 -arterial duplex RLE shows hemodynamically significant stenosis of the right posterior tibial artery -IV vancomycin and Zosyn (initiated 12/18) -vascular surgery consult -follow cultures # col-qzqsycu-wbrlfkjfz type 2 diabetes with hyperglycemia -last hemoglobin A1c 8.9%, repeat pending -initiate Lantus 10 units nightly -POC glucose, diabetic diet, Admelog on sliding scale -hold oral antihyperglycemics # hypertension -continue lisinopril, amlodipine # acute lactic acidosis -secondary to metformin use, no sepsis. Given IV fluids in the ED # history of CVA -statin, aspirin DVT prophylaxis-heparin Full code Patient requires inpatient stay at least 2 midnights for management of dry gangrene of the right 2nd toe with cellulitis of the right lower extremity who will require IV antibiotics as well as expert consultation and possible amputation in the setting of peripheral artery disease and uncontrolled type 2 diabetes Quality Stroke Does the patient have a stroke diagnosis?: No VTE Prior VTE?: No VTE Risk Level:: Medical - moderate - high VTE Device Contraindication: Treatment Not Indicated VTE Drug Contraindication: N/A - Med Ordered
[2023-12-19 16:46] VITALS: BP 162/58; PULSE 96; RESP 14; TEMP 36.8; O2SAT 98
--- NOTE | 2023-12-19 17:04 | PHA.MEDREC ---
Pharmacy Consult ? Medication Reconciliation Pharmacy has completed the medication reconciliation. Spoke to patient and confirmed medication list. Patient is now on ozempic 0.5 mg and he injects once a week on tuesday.
[2023-12-19 17:09] LABS: Estimated Average Glucose 212 mg/dL
[2023-12-19 17:10] LABS: ~Lactic Acid-LAB USE ONLY 2.1 mmol/L (0.5-2.0)
[2023-12-19] MEDS: Heparin Sodium,Porcine 5,000 UNIT/ML VIAL 5000 UNIT SUBCUT (18:41)
[2023-12-19] MEDS: Atorvastatin Calcium 20 MG TABLET PO (18:42)
[2023-12-19 18:56] LABS: Reflex Lactate? 2 Y
[2023-12-19] MEDS: vancomycin/NS 2,000 MG/500 ML PLAST..BAG 250 MG IV (19:20)
[2023-12-19 19:32] LABS: ~Lactic Acid-LAB USE ONLY 1.5 mmol/L (0.5-2.0)
[2023-12-19 20:13] VITALS: BP 156/119; PULSE 96; RESP 15; TEMP 37.6; O2SAT 95
--- NOTE | 2023-12-19 20:15 | PHA.PROG ---
Admission Date/Time: December 19, 2023 16:39 Indication: BONE + JOINT Weight in k.111 kg Serum Creatinine - Last 168 Hours 12/19/23 14:13 Creatinine 0.91 Estimated CrCl and GFR - Last 168 Hours 12/19/23 14:13 Estim Creat Clear Calc 74.7 Estimated GFR > 60 Vancomycin Loading dose:2000 Current Vancomycin Dosing Regimen: 1500 Q 24 Vancomycin Monitoring using AUC goal of 400 - 600 range with trough as surrogate marker 480 Date and Time for next Vancomycin Level to be drawn: 12/20 @ 1700 Pharmacist Comments on Vancomycin Plan: Vancomycin dosing will take advantage of [employer] as a clinical decision support tool that uses Bayesian modeling to calculate individual patient's pharmacokinetic parameters and forecast the patient's drug concentration time course with the target goal AUC 24 range of 400 - 600 mg/L/hr.
[2023-12-19 20:45] LABS: Glucose, Whole Blood 223 mg/dL (60-115)
[2023-12-19] MEDS: Insulin Glargine,Hum.rec.anlog 100 UNIT/ML 10 ML VIAL 10 UNIT SUBCUT (21:45)
[2023-12-19] MEDS: Piperacillin Sodium/Tazobactam 4.5 GM in 0.9 % Sodium Chloride 100 ML IV (21:46)
[2023-12-19] MEDS: Insulin Lispro 100 UNIT/ML 3 ML VIAL SUBCUT (21:46)
[2023-12-19 23:57] VITALS: BP 126/74; PULSE 90; RESP 16; TEMP 37.3; O2SAT 96
[2023-12-20 00:34] VITALS: BP 141/85; PULSE 89; RESP 16; TEMP 36.4; O2SAT 96
[2023-12-20] MEDS: Acetaminophen 325 MG TABLET 650 MG PO (01:21)
[2023-12-20] MEDS: 0.9 % Sodium Chloride Flush 3 ML SYRINGE IVFLUSH ×4 (01:22→23:48)
[2023-12-20] MEDS: Heparin Sodium,Porcine 5,000 UNIT/ML VIAL 5000 UNIT SUBCUT (04:36)
[2023-12-20] MEDS: Piperacillin Sodium/Tazobactam 4.5 GM in 0.9 % Sodium Chloride 100 ML IV ×4 (04:36→21:35)
[2023-12-20 06:01] LABS: MANUAL DIFF FLAG NO
[2023-12-20 06:10] LABS: Basophils Percent Auto 0.4 % (0-2); Eosinophils Absolute Auto 0.1 X10*3/uL (0.0-0.4); Eosinophils Percent Auto 2.3 % (0-4); Hematocrit 36.1 % (42.0-52.0); Imm Gran Abs Auto 0.02 X10*3/uL (0.00-0.03); Imm Gran Pct Auto 0.4 % (0.0-0.4); Lymphocytes Absolute Auto 1.7 X10*3/uL (1.2-4.9); Lymphocytes Percent Auto 30.2 % (20-40); Mean Corpuscular HGB Conc 33.2 g/dl (31.0-36.0); Mean Corpuscular Hemoglobin 29.3 pg (27.0-33.0); Mean Platelet Volume 9.9 fL (9.4-12.4); Monocytes Absolute Auto 0.6 X10*3/uL (0.1-1.2); Monocytes Percent Auto 10.4 % (2-11); Neutrophils Absolute Auto 3.1 x10*3/uL (2.0-8.3); Neutrophils Percent Auto 56.3 % (45-73); Platelet Count 223 X10*3/uL (160-400); Red Cell Distribution Width 12.3 % (11.0-16.0); White Blood Count 5.6 X10*3/uL (4.8-10.8)
[2023-12-20 06:19] LABS: Anion Gap 11 (12-20); Blood Urea Nitrogen 10 mg/dL (9-16); Calcium 9.8 mg/dL (8.4-10.2); Carbon Dioxide 26 mmol/L (22-29); Chloride 106 mmol/L (96-108); Creatinine Clr Calc Pharmacy 91.8; Estimated Glomerular Filt Rate > 60; Glucose Random 164 mg/dL (60-115); Potassium 3.9 mmol/L (3.3-5.1); Sodium 139 mmol/L (135-145)
--- NOTE | 2023-12-20 07:11 | PC.NURSE ---
Patient has necrosis with cellulitis to right second toe. See photo under ER physician documentation.
[2023-12-20 07:22] VITALS: BP 173/80; PULSE 97; RESP 18; TEMP 36.6; O2SAT 90
[2023-12-20 07:26] LABS: Glucose, Whole Blood 156 mg/dL (60-115)
[2023-12-20 08:00] VITALS: BP 173/80; PULSE 97; RESP 18; TEMP 36.7; O2SAT 90
[2023-12-20] MEDS: Insulin Lispro 100 UNIT/ML 3 ML VIAL SUBCUT ×4 (08:15→21:35)
[2023-12-20] MEDS: amLODIPine Besylate 10 MG TABLET PO (08:15)
--- NOTE | 2023-12-20 09:17 | HE.PHANOTE ---
Kathi Davis: Renal function remains stable, continue current dose of 1,500mg Q24H. Next trough to be drawn 12/20 at 1700.
--- NOTE | 2023-12-20 09:56 | MHC.CM.PN ---
IMM DELIVERED PT LIVES WITH SPOUSE, INDEPENDENT AT BASELINE. +HCP PCP TAL MONROY DP: HOME WITH SERVICES IF NEEDED, PT FIRST CHOICE IS [facility]. REFERRAL SENT. CM WILL CONTINUE TO FOLLOW FOR ANY CHANGE IN DC NEEDS/PLAN.
--- NOTE | 2023-12-20 10:31 | HO.PM.IMPN ---
Subjective Subjective Date of Service: 12/20/23 Interval History: htn ,dm foot gangrene /cellulitis Review of Systems foot looks similar no fever or chills Physical Exam Vital Signs: Vital Signs: Last Vital Signs Temp 98.0 F 12/20/23 08:00 Pulse 97 12/20/23 08:00 Resp 18 12/20/23 08:00 BP 173/80 H 12/20/23 08:00 Pulse Ox 90 L 12/20/23 08:00 O2 Del Method Room Air 12/20/23 08:00 BMI result Body Mass Index 23.7 Appearance: Alert.? Oriented X3.? cvs: rrr, [id number] , no murmur res: clear to auscultation ,no rhonchii or wheezing abd: no rebound or guarding ,nt, bs present. ext pulses present , no cyanosis . neuro: axo3 , nonfocal. Objective Data Active Medications Acetaminophen (Acetaminophen 325 Mg Tablet) 650 mg PO Q6H PRN PRN Reason: Pain, Mild (Pain Scale 1-3) Last Admin: 12/20/23 01:21 Dose: 650 mg Documented By: ADELSO Amlodipine Besylate (Amlodipine Besylate 10 Mg Tablet) 10 mg PO DAILY COUNTS INCLUDE 234 BEDS AT THE [facility]; Protocol Last Admin: 12/20/23 08:15 Dose: 10 mg Documented By: KRISTIN Atorvastatin Calcium (Atorvastatin Calcium 20 Mg Tablet) 20 mg PO DAILY@1900 COUNTS INCLUDE 234 BEDS AT THE [facility] Last Admin: 12/19/23 18:42 Dose: 20 mg Documented By: GRACE Glucose (Glucose Gel 15 Gm Gel..Gram.) 15 gm PO Q15M PRN; Protocol PRN Reason: per Hypoglycemia Standing Ord. Heparin Sodium (Porcine) (Heparin Sodium,Porcine 5,000 Unit/Ml Vial) 5,000 unit SUBCUT Q12H COUNTS INCLUDE 234 BEDS AT THE [facility] Last Admin: 12/20/23 04:36 Dose: 5,000 unit Documented By: ADELSO Piperacillin Sod/Tazobactam (Sod 4.5 gm/ Sodium Chloride) 100 mls @ 200 mls/hr IV Q6H COUNTS INCLUDE 234 BEDS AT THE [facility] Last Admin: 12/20/23 10:21 Dose: 200 mls/hr Documented By: KRISTIN Dextrose (D10) 250 mls @ 750 mls/hr IV Q15M PRN; Protocol PRN Reason: per Hypoglycemia Standing Ord. Vancomycin HCl 1,500 mg/ (Sodium Chloride) 500 mls @ 333.333 mls/hr IV Q24H COUNTS INCLUDE 234 BEDS AT THE [facility] Insulin Glargine (Insulin Glargine,Hum.Rec.Anlog 100 Unit/Ml 10 Ml Vial) 10 unit SUBCUT BEDTIME COUNTS INCLUDE 234 BEDS AT THE [facility] Last Admin: 12/19/23 21:45 Dose: 10 unit Documented By: DELL Insulin Human Lispro (Insulin Lispro 100 Unit/Ml 3 Ml Vial) 0 unit SUBCUT QIDACHS COUNTS INCLUDE 234 BEDS AT THE [facility]; Protocol Last Admin: 12/20/23 08:15 Dose: 2 unit Documented By: KRISTIN Ondansetron HCl (Ondansetron Hcl 4 Mg/2 Ml Vial) 4 mg IVPUSH Q8H PRN PRN Reason: Nausea and Vomiting Pharmacy Consult (Consult Rx Vancomycin Dosing) 1 each MISCELLANE DAILY PRN PRN Reason: Consult order Senna (Sennosides 8.6 Mg Tablet) 17.2 mg PO BEDTIME PRN PRN Reason: Constipation Sodium Chloride (0.9 % Sodium Chloride Flush 3 Ml Syringe) 3 ml IVFLUSH QSHIFT COUNTS INCLUDE 234 BEDS AT THE [facility] Last Admin: 12/20/23 08:17 Dose: 3 ml Documented By: KRISTIN Labs 12/20/23 05:43 12/20/23 05:43 Labs: Laboratory Results - last 24 hr 12/19/23 12/19/23 12/19/23 14:13 14:14 16:51 MCV 89.5 MCH 29.5 MCHC 32.9 RDW 12.3 Plt Count 235 MPV 10.0 Immature Gran % (Auto) 0.3 Neut % (Auto) 72.6 Lymph % (Auto) 20.4 [place] % (Auto) 5.7 Eos % (Auto) 0.9 Baso % (Auto) 0.1 Lymph # (Auto) 1.4 [place] # (Auto) 0.4 Eos # (Auto) 0.1 Baso # (Auto) 0.0 Abs Immat Gran (auto) 0.02 Absolute Neuts (auto) 5.1 Absolute Nucleated RBC 0.000 Nucleated RBC % (auto) 0.0 ESR 73 H PT 11.5 INR 0.9 APTT 20.8 L Anion Gap 14 Estim Creat Clear Calc 74.7 Estimated GFR > 60 POC Glucose Random Glucose 315 H Estimat Average Glucose 212 Hemoglobin A1c % 9.0 H Lactic Acid 3.0 H* Lactic Acid F/U @ 2Hr 2.1 H* Lactic Acid F/U @ 4Hr Calcium 10.5 H D Total Bilirubin 0.4 AST 9 ALT 13 Alkaline Phosphatase 94 C-Reactive Protein 7.15 H Total Protein 9.0 H Albumin 4.4 12/19/23 12/19/23 12/20/23 19:15 20:42 05:43 MCV 88.0 MCH 29.3 MCHC 33.2 RDW 12.3 Plt Count 223 MPV 9.9 Immature Gran % (Auto) 0.4 Neut % (Auto) 56.3 Lymph % (Auto) 30.2 [place] % (Auto) 10.4 Eos % (Auto) 2.3 Baso % (Auto) 0.4 Lymph # (Auto) 1.7 [place] # (Auto) 0.6 Eos # (Auto) 0.1 Baso # (Auto) 0.0 Abs Immat Gran (auto) 0.02 Absolute Neuts (auto) 3.1 Absolute Nucleated RBC 0.000 Nucleated RBC % (auto) 0.0 ESR PT INR APTT Anion Gap 11 L Estim Creat Clear Calc 91.8 Estimated GFR > 60 POC Glucose 223 H Random Glucose 164 H Estimat Average Glucose Hemoglobin A1c % Lactic Acid Lactic Acid F/U @ 2Hr Lactic Acid F/U @ 4Hr 1.5 Calcium 9.8 D Total Bilirubin AST ALT Alkaline Phosphatase C-Reactive Protein Total Protein Albumin 12/20/23 07:21 MCV MCH MCHC RDW Plt Count MPV Immature Gran % (Auto) Neut % (Auto) Lymph % (Auto) [place] % (Auto) Eos % (Auto) Baso % (Auto) Lymph # (Auto) [place] # (Auto) Eos # (Auto) Baso # (Auto) Abs Immat Gran (auto) Absolute Neuts (auto) Absolute Nucleated RBC Nucleated RBC % (auto) ESR PT INR APTT Anion Gap Estim Creat Clear Calc Estimated GFR POC Glucose 156 H Random Glucose Estimat Average Glucose Hemoglobin A1c % Lactic Acid Lactic Acid F/U @ 2Hr Lactic Acid F/U @ 4Hr Calcium Total Bilirubin AST ALT Alkaline Phosphatase C-Reactive Protein Total Protein Albumin Assessment and Plan (1) Cellulitis: Status: Acute (2) PAD (peripheral artery disease): Status: Acute Assessment and Plan: 73-year-old male with history of lav-xpwvzdc-ssjxridsk type 2 diabetes, hypertension, hyperlipidemia, PVD, CVA admitted for further management of dry gangrene and cellulitis R foot Dry gangrene R 2nd toe with cellulitis RLE ESR 73, CRP 7 blood cultures pending arterial duplex RLE shows hemodynamically significant stenosis of the right posterior tibial artery on IV vancomycin and Zosyn (initiated 12/18),vanco trough per pharmacy vascular surgery consult [id number] type 2 diabetes with hyperglycemia last hemoglobin A1c 8.9%, repeat pending POC glucose, diabetic diet, Admelog on sliding scale,lantus -hold oral antihyperglycemics hypertension-somewhat suboptimal continue lisinopril, amlodipine acute lactic acidosis-secondary to metformin use, no sepsis. Given IV fluids in the ED,improved. history of CVA-statin, aspirin DVT prophylaxis-heparin Full code ongoing inpatient need for management of dry gangrene of the right 2nd toe with cellulitis of the right lower extremity who will require IV antibiotics as well as expert consultation and possible amputation in the setting of peripheral artery disease and uncontrolled type 2 diabetes Quality Stroke Does the patient have a stroke diagnosis?: No VTE Prior VTE?: No VTE Risk Level:: Medical - moderate - high VTE Device Contraindication: Treatment Not Indicated VTE Drug Contraindication: N/A - Med Ordered
[2023-12-20 11:05] LABS: Glucose, Whole Blood 260 mg/dL (60-115)
[2023-12-20] MEDS: lisinopriL 10 MG TABLET PO (11:23)
--- NOTE | 2023-12-20 11:47 | P.CDIM_ITS ---
PROVIDER RESPONSE TEXT: To clarify, the appropriate diagnosis supported by the clinical indicators: Cellulitis RLE due to/associated with Diabetes mellitus Type 2 QUERY TEXT: PHYSICIAN'S DOCUMENTATION REQUEST Date of Query: 12/20/2023 11:26 AM EDT Patient Name: Rivera Hernandez Admit Date: 12/19/2023 Dear Erika Unger, A review of the medical record indicates additional documentation may be needed. Please review below and update the documentation accordingly. Clinical Indicators: Dry gangrene right 2nd toe with cellulitis RLE IV vancomycin and zosyn Non-insulin dependent Type2 Diabetes mellitus with hyperglycemia Lantus POC glucose Diabetic diet Please clarify the following regarding the Complications of Diabetes Mellitus (DM): Cellulitis RLE due to/associated with Diabetes mellitus Type 2 Cellulitis RLE is not associated with/due to Diabetes mellitus Type 2 Other (explain) Clinically unable to determine (explain) Thank you, Siri Dacosta, CCS, CDIS Use of terms such as suspected, likely, concern for, or probable (associated with a specific diagnosi s that is being evaluated, monitored, or treated as if it exists) are acceptable and can be coded in the inpatient se tting, when documented at the time of discharge. Please use your independent medical judgment in providing your response. THIS QUERY IS PART OF THE PERMANENT MEDICAL RECORD
--- NOTE | 2023-12-20 13:42 | P.CONGS_ITS ---
History of Present Illness Consult details Consult date: 12/20/23 Reason for consult: wound care Narrative: Very pleasant 73-year-old gentleman presents for evaluation regarding nonhealing right 2nd toe gangrene. Reports that it has been going on for a few weeks. He now presents for vascular evaluation. Review of Systems 2 Review of Systems: Yes all other systems are reviewed and are negative Constitutional: Constitutional: Reports no additional constitutional complaints ENT: Reports Normal hearing present Cardiovascular: Cardiovascular: Denies chest pain, Denies chest pain at rest, Denies chest pain with activity and Denies pedal edema Respiratory: Respiratory: Denies cough Gastrointestinal: Gastrointestinal: Denies abdominal pain Musculoskeletal: Musculoskeletal: Denies abnormal gait, Denies muscle cramps and Denies radiating pain into limb Integumentary/Breasts: Skin/Breast: Denies skin ulcer and Denies wounds Neurologic: Reports Normal hearing present and Denies abnormal gait Psychiatric: Psychiatric: Reports no additional psychiatric complaints PMFSH Past Medical History Medical History Other and unspecified hyperlipidemia Essential hypertension Type 2 diabetes mellitus with unspecified complications Allergic rhinitis Stroke Nausea & vomiting Hospital discharge follow-up Atypical chest pain Diabetes Hyperlipidemia HTN (hypertension) Family History Family History Father No problems noted. Mother Myocardial infarction Sister Diabetes Hypertension Surgical History Surgical History Hx of colonoscopy Social History Social History Household Members: Family Housing: House Do you presently have visiting nurse or other home services: No Alcohol intake: current Alcohol intake frequency: holidays/special occasions only Alcohol type: beer Patient Tobacco Use Status: Never used Tobacco Smoked in Last 30 Days: No e-Cigarette/Vaping Use: Never Used Second Hand Smoke Exposure: No Use of substances other than those prescribed or required for medical reasons: No Currently Displaying Signs/Symptoms of Drug Intoxication Withdrawal: No Have you been hit, kicked, punched, or otherwise hurt by someone within the past year? If so, by whom?: No Do you feel safe in your current relationship?: Yes Is there a partner from a previous relationship who is making you feel unsafe now?: No Are you made to feel afraid or neglected: No Advance Directives: No Advance Directives Information Provided: No Do you have thoughts of harming others: None Do you have a plan to hurt others: No Plan Recently lost weight without trying: No Eating poorly because of decreased appetite: No Nutrition Risks: No Nutritional Risk service: No Current occupational status: retired Cognitive needs: No Hearing needs: No Vision needs: No Meds Allergies Allergy/AdvReac Type Severity Reaction Status Date / Time sitagliptin [From JANUVIA] Allergy Unknown vomitting Verified 12/19/23 13:22 dulaglutide [From Trulicity] AdvReac Intermediate Rash Verified 12/19/23 13:22 pioglitazone [From Actos] AdvReac Intermediate palpatation Verified 12/19/23 13:22 s Active Medications: Current Medications Acetaminophen (Acetaminophen 325 Mg Tablet) 650 mg PO Q6H PRN PRN Reason: Pain, Mild (Pain Scale 1-3) Last Admin: 12/20/23 01:21 Dose: 650 mg Amlodipine Besylate (Amlodipine Besylate 10 Mg Tablet) 10 mg PO DAILY [facility]; Protocol Last Admin: 12/20/23 08:15 Dose: 10 mg Atorvastatin Calcium (Atorvastatin Calcium 20 Mg Tablet) 20 mg PO DAILY@1900 ROSENDO Last Admin: 12/19/23 18:42 Dose: 20 mg Glucose (Glucose Gel 15 Gm Gel..Gram.) 15 gm PO Q15M PRN; Protocol PRN Reason: per Hypoglycemia Standing Ord. Heparin Sodium (Porcine) (Heparin Sodium,Porcine 5,000 Unit/Ml Vial) 5,000 unit SUBCUT Q12H [facility] Last Admin: 12/20/23 04:36 Dose: 5,000 unit Piperacillin Sod/Tazobactam (Sod 4.5 gm/ Sodium Chloride) 100 mls @ 200 mls/hr IV Q6H [facility] Last Infusion: 12/20/23 11:26 Dose: Infused Dextrose (D10) 250 mls @ 750 mls/hr IV Q15M PRN; Protocol PRN Reason: per Hypoglycemia Standing Ord. Vancomycin HCl 1,500 mg/ (Sodium Chloride) 500 mls @ 333.333 mls/hr IV Q24H [facility] Insulin Glargine (Insulin Glargine,Hum.Rec.Anlog 100 Unit/Ml 10 Ml Vial) 10 unit SUBCUT BEDTIME [facility] Last Admin: 12/19/23 21:45 Dose: 10 unit Insulin Human Lispro (Insulin Lispro 100 Unit/Ml 3 Ml Vial) 0 unit SUBCUT QIDACHS [facility]; Protocol Last Admin: 12/20/23 11:23 Dose: 6 unit Lisinopril (Lisinopril 10 Mg Tablet) 10 mg PO DAILY [facility]; Protocol Ondansetron HCl (Ondansetron Hcl 4 Mg/2 Ml Vial) 4 mg IVPUSH Q8H PRN PRN Reason: Nausea and Vomiting Pharmacy Consult (Consult Rx Vancomycin Dosing) 1 each MISCELLANE DAILY PRN PRN Reason: Consult order Senna (Sennosides 8.6 Mg Tablet) 17.2 mg PO BEDTIME PRN PRN Reason: Constipation Sodium Chloride (0.9 % Sodium Chloride Flush 3 Ml Syringe) 3 ml IVFLUSH QSHIFT [facility] Last Admin: 12/20/23 08:17 Dose: 3 ml Home Medications ?Medication ?Instructions ?Recorded ?Confirmed ?Last Taken ?Type semaglutide 0.25 mg or 0.5 mg (2 0.5 mg subcut FR 12/19/23 12/19/23 12/16/23 History mg/3 mL) subcutaneous pen injector (Ozempic) simvastatin 40 mg tablet 40 mg PO DAILY@1900 12/19/23 12/19/23 12/18/23 History Physical Exam 2 Vital Signs: Vital Signs: Last Vital Signs Temp 98.0 F 12/20/23 08:00 Pulse 97 12/20/23 08:00 Resp 18 12/20/23 08:00 BP 173/80 H 12/20/23 08:00 Pulse Ox 90 L 12/20/23 08:00 O2 Del Method Room Air 12/20/23 08:00 BMI result Body Mass Index 23.7 Const: General: cooperative, healthy appearing and comfortable O rientation/consciousness: oriented to person, oriented to place and oriented to time HEENT: Head: Yes normal to inspection Neck: Neck: Yes normal visual inspection Carotids: no bruits Chest: Chest palpation & inspection: normal inspection of the chest Resp: Effort & Inspection: normal respiratory effort and able to speak in complete sentences Auscultation: clear to auscultation bilaterally, no crackles, no rales, no rhonchi and no wheezes Cardio: Other: Bilateral DP signals Rate: regular rate Rhythm: regular rhythm Heart sounds: S1 normal heart sound present and S2 normal heart sound present Bruits: no carotid bruits Peripheral pulses: Peripheral pulses 2+ throughout GI: Inspection: Yes normal to inspection Skin: Other: Right 2nd toe gangrene Wounds: no wounds Hair: normal Neuro: General: oriented to person, oriented to place and oriented to time Cranial nerves: Yes CN's II-XII intact bilaterally and Yes Normal hearing present Cognition (Neuro): normal cognition Motor exam (neuro): 5/5 motor strength present throughout Extrem: Other: venous exam: No significant superficial varicosities or spider telangiectasias, minimal edema General: No clubbing, No cyanosis and No edema Psych: Appearance: grossly normal Mental Status: mental status grossly normal Speech and movement: Normal speech and movement present Results Labs 12/20/23 05:43 12/20/23 05:43 Labs: Abnormal lab results 12/19/23 12/19/23 12/19/23 Range/Units 14:13 14:14 16:51 RBC 4.58 L (4.60-5.80) X10*6/uL Hgb 13.5 L (14.0-18.0) g/dl Hct 41.0 L (42.0-52.0) % ESR 73 H (0-15) MM/HR APTT 20.8 L (26.0-36.8) SEC Anion Gap (12-20) POC Glucose (60-115) mg/dL Random Glucose 315 H (60-115) mg/dL Hemoglobin A1c % 9.0 H (<6.0) % Lactic Acid 3.0 H* (0.5-2.0) mmol/L Lactic Acid F/U @ 2Hr 2.1 H* (0.5-2.0) mmol/L Calcium 10.5 H D (8.4-10.2) mg/dL C-Reactive Protein 7.15 H (< or = 0.50) mg/dL Total Protein 9.0 H (6.5-8.0) g/dL 12/19/23 12/20/23 12/20/23 Range/Units 20:42 05:43 07:21 RBC 4.10 L (4.60-5.80) X10*6/uL Hgb 12.0 L (14.0-18.0) g/dl Hct 36.1 L (42.0-52.0) % ESR (0-15) MM/HR APTT (26.0-36.8) SEC Anion Gap 11 L (12-20) POC Glucose 223 H 156 H (60-115) mg/dL Random Glucose 164 H (60-115) mg/dL Hemoglobin A1c % (<6.0) % Lactic Acid (0.5-2.0) mmol/L Lactic Acid F/U @ 2Hr (0.5-2.0) mmol/L Calcium (8.4-10.2) mg/dL C-Reactive Protein (< or = 0.50) mg/dL Total Protein (6.5-8.0) g/dL 12/20/23 Range/Units 10:55 RBC (4.60-5.80) X10*6/uL Hgb (14.0-18.0) g/dl Hct (42.0-52.0) % ESR (0-15) MM/HR APTT (26.0-36.8) SEC Anion Gap (12-20) POC Glucose 260 H (60-115) mg/dL Random Glucose (60-115) mg/dL Hemoglobin A1c % (<6.0) % Lactic Acid (0.5-2.0) mmol/L Lactic Acid F/U @ 2Hr (0.5-2.0) mmol/L Calcium (8.4-10.2) mg/dL C-Reactive Protein (< or = 0.50) mg/dL Total Protein (6.5-8.0) g/dL Short CBC 12/19/23 12/20/23 Range/Units 14:13 05:43 WBC 7.0 5.6 (4.8-10.8) X10*3/uL Hgb 13.5 L 12.0 L (14.0-18.0) g/dl Hct 41.0 L 36.1 L (42.0-52.0) % Plt Count 235 223 (160-400) X10*3/uL BMP 12/19/23 12/20/23 14:13 05:43 Sodium 137 139 Potassium 4.0 3.9 Chloride 98 106 Carbon Dioxide 29 26 BUN 12 10 Creatinine 0.91 0.74 Calcium 10.5 H D 9.8 D Liver Function 12/19/23 Range/Units 14:13 Total Bilirubin 0.4 (0.0-1.0) mg/dL AST 9 (5-37) U/L ALT 13 (0-40) U/L Alkaline Phosphatase 94 (39-117) U/L Albumin 4.4 (3.5-5.0) g/dL All other labs normal. Assessment and Plan (1) PAD (peripheral artery disease): Status: Acute Plan Patient notes leg pain when walking distances. I have discussed the pathophysiology of peripheral vascular disease with the patient. I have also discussed risk factor modification. I have reviewed the patient's arterial testing which reveals right lower extremity below-knee disease. the patient would benefit from a right leg endovascular peripheral angiogram with possible angioplasty, stent, and/or atherectomy. This has been discussed in detail with the patient along with risks, benefits, and complications. This includes but is not limited to bleeding, infection, heart attack, need for emergent surgical repair, limb ischemia, blood vessel damage, bleeding, puncture, kidney injury, bruising, allergic reaction, and skin reaction. The patient demonstrates a clear understanding. We will schedule for the next appropriate time. Thank you for allowing us to assist in this patient's care. Procedures Date of Service Date of Service: 12/20/23
[2023-12-20 15:37] VITALS: BP 134/75; PULSE 96; RESP 20; TEMP 37.5; O2SAT 97
[2023-12-20 16:41] LABS: Glucose, Whole Blood 246 mg/dL (60-115)
[2023-12-20] MEDS: Atorvastatin Calcium 20 MG TABLET PO (18:53)
[2023-12-20] MEDS: vancomycin HCL 1,500 MG in 0.9 % Sodium Chloride 500 ML 333.33 MG IV (18:54)
[2023-12-20 19:33] VITALS: BP 131/63; PULSE 95; RESP 18; TEMP 37.9; O2SAT 95
[2023-12-20 20:21] LABS: Glucose, Whole Blood 242 mg/dL (60-115)
[2023-12-20] MEDS: Insulin Glargine,Hum.rec.anlog 100 UNIT/ML 10 ML VIAL 10 UNIT SUBCUT (21:35)
[2023-12-20 23:38] VITALS: BP 147/64; PULSE 95; RESP 18; TEMP 37; O2SAT 96
[2023-12-21] VITALS (9 sets, daily range): BP systolic 136–160; BP diastolic 75–92; PULSE 92–118; RESP 14–18; TEMP 36.2–36.8; O2SAT 96–99
[2023-12-21] MEDS: Piperacillin Sodium/Tazobactam 4.5 GM in 0.9 % Sodium Chloride 100 ML IV ×2 (04:13→11:06)
[2023-12-21] MEDS: 0.9 % Sodium Chloride Flush 3 ML SYRINGE IVFLUSH ×2 (07:40→07:49)
[2023-12-21 07:51] LABS: Creatinine Clr Calc Pharmacy 90.6; Estimated Glomerular Filt Rate > 60
[2023-12-21 09:00] LABS: Glucose, Whole Blood 158 mg/dL (60-115)
--- NOTE | 2023-12-21 10:41 | W.PM.OPN ---
Operative Note Operative Note Date of Service: 12/21/23 Narrative: Angiogram report from [facility] Preoperative diagnosis: Atherosclerosis of right lower extremity with nonhealing ulcer Postoperative diagnosis: Same Procedure: 1. Ultrasound-guided left common femoral access 2. Aortogram with right lower extremity runoff Surgeon:Tj Simpson M.D., FACS, RPVI Clinical Staff Pharmacist:None Anesthesia: Local with moderate conscious sedation. Total intraservice moderate sedation time was 34 minutes. I monitored the patient's level of consciousness and physiologic status continuously throughout the procedure. Specimens:none Drains:none Estimated blood loss: Less than 10 ml Implant: None Indications: 73-year-old diabetic gentleman who presented with nonhealing right 2nd toe which is actually frankly gangrenous. Noninvasive testing there was concern of below-knee disease. He now presents for endovascular intervention. The patient has signed the informed consent after reviewing risks, complications, benefits, and alternatives previously discussed with the patient. The patient was given the opportunity to ask any additional questions or voice any concerns. All questions were answered to the patient's satisfaction. Procedure in detail: Patient was brought to the angiography suite prior to which a time-out was called for patient identification and site verification. Bilateral groins were prepped and draped in the standard surgical fashion. Under ultrasound guidance left common femoral was punctured with micro puncture needle and wire. Subsequently a precision 4 [place] sheath was then placed. Bentson wire was advanced to the level of the aorta. 4 [place] Flush catheter was brought up and parked at the level of the renal arteries. Aortogram was then undertaken. Catheter was brought down to the level of the iliac bifurcation. Iliacs were subsequently imaged. Catheter was then brought in up and over to the right side SFA. Runoff study was then undertaken. No intervention was indicated. Catheter wire was removed. Sheath was upsized to a 5 [place] sheath. A Celt closure device was then deployed. Adequate hemostasis was achieved. Patient tolerated the procedure well. Returned to recovery with stable vitals. Interpretation of films: 1. Ultrasound demonstrates appropriate femoral puncture. Image of which was saved. 2. Aortogram demonstrates appropriate caliber aorta. Minimal disease. Appropriate take-off of the renals. 3. Iliac images demonstrate no significant disease widely splayed out at bifurcation 4. Right Leg Common femoral artery: No significant disease Profundus Femoris: No significant disease Superficial femoral artery: No significant disease Popliteal artery (p1,p2,p3): No significant disease Anterior tibial artery: Occludes proximally Peroneal artery: Present all the way down to ankle but gets diminutive Posterior tibial artery: Dominant runoff to ankle Dorsalis pedis/plantar arch: Incomplete Conclusion: 1. Successful diagnostic angiogram 2. Anticoagulation status: No change This note is constructed using voice recognition software. While every effort has been made to ensure accuracy, patcher errors may have been included. Thank you for allowing me to participate in the care of your patient. Yours sincerely, Tj Simpson MD, FACS, R.P.V.I.
--- NOTE | 2023-12-21 11:43 | P.DS_ITS ---
DS: Providers Provider Date of Service: 12/21/23 Date of admission: 12/19/23 16:39 Primary care physician: Vikash Pompa PA-C Consults: 12/20/23 07:09 Consult to Wound Care Routine Reason for consultation: Dry gangrene with cellulitis to R second toe. 12/20/23 08:47 Consult to Vascular Surgery Routine Consulting Provider: [facility] Reason for consultation: Right foot cellulitis and Pad Has provider been notified: No DS: Diagnosis Discharge Diagnosis (1) PAD (peripheral artery disease): Status: Acute DS: Summary Hospital Course Hospital Course: from initial hpi: 73-year-old male with history of aio-[id number] type 2 diabetes, hypertension, hyperlipidemia, PVD, CVA presented to the ED earlier today for evaluation of an infection of the right 2nd toe. He reports he went on a 10 day cruise and just came back. He states that over the last month, he has been experiencing worsening blackness of the right 2nd toe now with some warmth, erythema of the foot. He denies any fevers or chills. He reports he does have sensation in the foot. Since arrival, has been slightly hypertensive to 158/71, vital signs otherwise stable. No leukocytosis. Has a stable normocytic anemia renal function and electrolyte levels normal. Glucose 315. Lactic acid 3.0. CRP 7.15, ESR 73. X-ray of the right foot negative for acute abnormality negative for evidence of osteomyelitis. Arterial duplex of the right lower extremity shows hemodynamically significant stenosis of the posterior tibial artery as well as monophasic waveforms in the peroneal and anterior tibial arteries. In the ED, has received IV vancomycin and IV normal saline. NO hx illicit drug use or cigarette smoking. NO alcohol use hospital course: Patient was admitted for dry gangrene of right 2nd toe due to peripheral vascular disease and diabetes further complicated by hyperglycemia and cellulitis of the right lower extremity. He was put on vancomycin and Zosyn. He underwent arterial duplex which showed hemodynamically significant stenosis of the right posterior tibial artery. He underwent angiogram which revealed no interventional lesion. Recommendations from vascular were to discharged home on oral antibiotics with plan for short-term follow-up for amputation. Patient should hold metformin for 48 hours and hold Ozempic until surgery. For hypertension was continued on lisinopril and amlodipine. For history of CVA was continue aspirin statin. Time Attestation Discharge Coordination Time (in mins): 35 Quality: Safe Use of Opioids Does Pt have an Active Cancer Diagnosis on the Problem List?: No Quality: Stroke Does the patient have a stroke diagnosis?: No Physical Exam Vital Signs: Vital Signs: Last Vital Signs Temp 97.1 F 12/21/23 10:30 Pulse 95 12/21/23 11:30 Resp 16 12/21/23 11:30 BP 136/90 H 12/21/23 11:30 Pulse Ox 96 12/21/23 11:30 O2 Del Method Room Air 12/21/23 11:30 BMI result Body Mass Index 23.7 left facial droop Const: General: cooperative, healthy appearing and comfortable Orientation/consciousness: oriented to person, oriented to place and oriented to time HEENT: Head: Yes normal to inspection Neck: Neck: Yes normal visual inspection Carotids: no bruits Chest: Chest palpation & inspection: normal inspection of the chest Resp: Effort & Inspection: normal respiratory effort and able to speak in complete sentences Auscultation: clear to auscultation bilaterally, no crackles, no rales, no rhonchi and no wheezes Cardio: Other: Bilateral DP signals Rate: regular rate Rhythm: regular rhythm Heart sounds: S1 normal heart sound present and S2 normal heart sound present Bruits: no carotid bruits Peripheral pulses: Peripheral pulses 2+ throughout GI: Inspection: Yes normal to inspection Skin: Other: Right 2nd toe gangrene Wounds: no wounds Hair: normal Neuro: General: oriented to person, oriented to place and oriented to time Cranial nerves: Yes CN's II-XII intact bilaterally and Yes Normal hearing present Cognition (Neuro): normal cognition Motor exam (neuro): 5/5 motor strength present throughout Extrem: Other: venous exam: No significant superficial varicosities or spider telangiecta katharine, minimal edema General: No clubbing, No cyanosis and No edema Psych: Appearance: grossly normal Mental Status: mental status grossly normal Speech and movement: Normal speech and movement present DS: Data Data Completed and Pending Labs on day of discharge: Laboratory Results - last 24 hr 12/20/23 12/20/23 12/21/23 16:27 20:13 06:51 Hold Purple Top SEE NOTE Creatinine 0.75 Estim Creat Clear Calc 90.6 Estimated GFR > 60 POC Glucose 246 H 242 H 12/21/23 08:57 Hold Purple Top Creatinine Estim Creat Clear Calc Estimated GFR POC Glucose 158 H Preliminary micro results at discharge 12/19/23 15:31 Blood Culture - Preliminary Blood - Venous No growth after 24 hours. 12/19/23 14:13 Blood Culture - Preliminary Blood - Venous No growth after 24 hours. Discharge Plan Discharge Anticipated Discharge Date/Time: 12/21/23 14:00 Patient Disposition: Home, Self-Care Discharge Diagnosis: pvd, gangrene Referrals: Vikash Pompa PA-C [Primary Care Provider] - 1 Week Tj Rice MD [Physician] - 1 Week Discharge Medications: New oxycodone 5 mg Tablet 5 mg PO Q4H PRN (Reason: Pain, Moderate(Pain Scale 4-6)) Qty: 10 0RF Rx Instructions: Partial Fill upon patient request. doxycycline hyclate 100 mg capsule 100 mg PO BID Qty: 14 0RF Continued aspirin 81 mg tablet,delayed release (DR/EC) 81 mg PO DAILY 90 Days Qty: 90 4RF (DME) blood-glucose meter [FreeStyle Lite Meter] Kit See Rx Instructions .Route Qty: 1 0RF Rx Instructions: As directed tests 4 X/day (DME) FreeStyle Lite Strips Strip See Rx Instructions .Route Qty: 100 4RF Rx Instructions: As directed tests 4 X/day lisinopril 10 mg tablet 10 mg PO DAILY 90 Days Qty: 90 1RF (DME) walker Misc See Rx Instructions .MEDSUPPLY Qty: 1 0RF Rx Instructions: Folding Front wheeled walker (DME) walker Misc See Rx Instructions .MEDSUPPLY Qty: 1 0RF Rx Instructions: Folding Front wheeled walker simvastatin 40 mg tablet 40 mg PO DAILY@1900 amlodipine 10 mg tablet 10 mg PO DAILY Qty: 90 1RF (DME) Dexcom G7 Sensor Device See Rx Instructions .Route Qty: 3 4RF Rx Instructions: As directed change every 10 days Held metformin 1,000 mg tablet 1,000 mg PO BID 90 Days Qty: 180 1RF Hold Instructions: Resume on 12/23/23. Ozempic 0.25 mg or 0.5 mg (2 mg/3 mL) Pen Injector 0.5 mg SUBCUT FR Hold Instructions: Resume on 01/02/24. Discharge Orders: Discharge Order (Routine); Ordered 12/21/23 Ordered By: Jesus Saha Diet: Advance to usual diet Activity on Discharge: As tolerated Stand Alone Forms: Patient Portal Discharge page Print Language: Faroese Activity Restrictions/Additional Instructions: Skin glue was used and you may shower as early as tomorrow. Take it easy today and you may ambulate around the house. Within 24 hours you can resume normal activity You may climb a flight of stairs as tolerated Do not lift anything heavier than a gallon of milk See Dr. Rice in follow-up to schedule surgery for the foot. You should already have an appointment if not please call my office at [phone] Please do not take Ozempic If you notice excessive bleeding from the groin please immediately call my office or return to the emergency room. Care Plan Goals: manage gangrene Health Concerns: gangrene Plan of Treatment: hold metformin 48hrs, hold ozempic til surgery, follow up with dr rice, doxycyline as directed Assessment: see above
[2023-12-21] MEDS: amLODIPine Besylate 10 MG TABLET PO (12:45)
[2023-12-21] MEDS: lisinopriL 10 MG TABLET PO (12:45)
[2023-12-21] MEDS: Acetaminophen 325 MG TABLET 650 MG PO (12:45)
--- NOTE | 2023-12-21 13:37 | MHC.CM.PN ---
IMM 12/20/23 Patient is discharged to home today self care. He has arranged for his to provide transportation home.
[2023-12-21 14:40] LABS: Glucose, Whole Blood 141 mg/dL (60-115)
== END 2023-12-21 14:20 | disposition home or self-care (01) | DRG 300 ==
LOC: HO.ED 15:51 → HO.EDOVER 16:47 → HO.S3 23:38
PROVIDERS: Internal Medicine; Physician Assistant; Surgery Vascular Surgery; Admitting Provider Physician Assistant; Emergency Provider Emergency Medicine; PCP Physician Assistant; Visit Provider Internal Medicine
PROC: B40D1ZZ Plain Radiography of Aorta and Bilateral Lower Extremity Arteries using Low Osmolar Contrast (ICD-10-PCS; principal; 2023-12-21 09:00)
DX: E11.52 Type 2 diabetes mellitus with diabetic peripheral angiopathy with gangrene (principal); E87.21 Acute metabolic acidosis; I70.261 Atherosclerosis of native arteries of extremities with gangrene, right leg; L97.519 Non-pressure chronic ulcer of other part of right foot with unspecified severity; E11.65 Type 2 diabetes mellitus with hyperglycemia; I10 Essential (primary) hypertension; E11.628 Type 2 diabetes mellitus with other skin complications; L03.031 Cellulitis of right toe; Z79.82 Long term (current) use of aspirin; Z79.84 Long term (current) use of oral hypoglycemic drugs; Z79.85 Long-term (current) use of injectable non-insulin antidiabetic drugs; Z79.899 Other long term (current) drug therapy
CPT/HCPCS: 36247; 36415; 73620; 75630; 76937; 80048; 80053; 82565; 82947; 83036; 83605; 85025; 85610; 85652; 85730; 86140; 87040; 93926; 99152; 99153; 99285; A4364; C1760; C1769; C1887; C1894; J1644; J2543; J3370; J3371

== ENCOUNTER → 2023-12-19 16:39 | Outpatient (BNV) | payer MEDICARE, SELFPAY | PROVIDERS: Admitting Provider Physician Assistant; Emergency Provider Emergency Medicine; PCP Physician Assistant; Visit Provider Physician Assistant | DX: I73.9 Peripheral vascular disease, unspecified (principal) | CPT/HCPCS: 99223; 99232; 99239 ==

== ENCOUNTER → 2023-12-19 16:39 | Outpatient (BNV) | payer MEDICARE, SELFPAY | PROVIDERS: Admitting Provider Physician Assistant; Emergency Provider Emergency Medicine; PCP Physician Assistant; Visit Provider Surgery Vascular Surgery | DX: I70.239 Atherosclerosis of native arteries of right leg with ulceration of unspecified site (principal) | CPT/HCPCS: 36247; 75625; 75710; 76937; 99152; 99222 ==

== ENCOUNTER 2023-12-29 13:30 | Outpatient (AMB) | payer MEDICARE, SELFPAY ==
--- NOTE | 2023-12-29 13:31 | A.OFFVIS_ITS ---
Intake Visit Reasons: follow up angiogram/foot pain Intake Note: follow up Right LE Angio 12/21/23 w/ Right 2nd toe non-healing wound, no dressing or VNA. States his toe has been like this for numerous months. Accompanied by: Self / Same As Patient Allergies sitagliptin [From JANUVIA] Allergy (Unknown, Verified 12/29/23 13:36) vomitting dulaglutide [From Trulicity] Adverse Reaction (Intermediate, Verified 12/29/23 13:36) Rash pioglitazone [From Actos] Adverse Reaction (Intermediate, Verified 12/29/23 13:36) palpatations HPI HPI follow up angiogram/foot pain: Details: Very pleasant 73-year-old gentleman presents for follow-up status post right lower extremity angiogram he has a gangrenous right 2nd toe which have been a source of pain and discomfort for him. He has had no interval changes. He now presents for follow-up and is quite concerned about the right 2nd toe. Of note has significant pain and is having difficulty sleeping at night. [facility] Medical History Other and unspecified hyperlipidemia Essential hypertension Type 2 diabetes mellitus with unspecified complications Allergic rhinitis Stroke Nausea & vomiting Hospital discharge follow-up Atypical chest pain Diabetes Hyperlipidemia HTN (hypertension) Surgical History Hx of colonoscopy Family History Father No problems noted. Mother Myocardial infarction Sister Diabetes Hypertension Social History Household Members: Family Housing: House Do you presently have visiting nurse or other home services: No Alcohol intake: current Alcohol intake frequency: holidays/special occasions only Alcohol type: beer Patient Tobacco Use Status: Never used Tobacco e-Cigarette/Vaping Use: Never Used Second Hand Smoke Exposure: No service: No Current occupational status: retired Cognitive needs: No Hearing needs: No Vision needs: No Review of Systems Const All systems reviewed & are unremarkable except as noted in HPI and below Reports no additional complaints ENT Reports Normal hearing present Card Denies chest pain, Denies chest pain at rest, Denies chest pain with activity and Denies pedal edema Resp Denies cough GI Denies abdominal pain Musc Denies abnormal gait, Denies muscle cramps and Denies radiating pain into limb Skin/Breast Denies skin ulcer and Denies wounds Neuro Reports Normal hearing present and Denies abnormal gait Psych Reports no additional complaints Physical Exam Const General: cooperative, healthy appearing and comfortable Orientation/consciousness: oriented to person, oriented to place and oriented to time HEENT Head: Yes normal to inspection Neck Neck: Yes normal visual inspection Carotids: no bruits Chest Chest palpation & inspection: normal inspection of the chest Resp Effort & Inspection: normal respiratory effort and able to speak in complete sentences Auscultation: clear to auscultation bilaterally, no crackles, no rales, no rhonchi and no wheezes Cardio Other: Bilateral DP signals Rate: regular rate Rhythm: regular rhythm Heart sounds: S1 normal heart sound present and S2 normal heart sound present Bruits: no carotid bruits Peripheral pulses: Peripheral pulses 2+ throughout GI Inspection: Yes normal to inspection Skin Other: Right 2nd toe dry gangrene Wounds: no wounds Hair: normal Neuro General: oriented to person, oriented to place and oriented to time Cranial nerves: Yes CN's II-XII intact bilaterally and Yes Normal hearing present Cognition (Neuro): normal cognition Motor exam (neuro): 5/5 motor strength present throughout Extrem Other: venous exam: No significant superficial varicosities or spider telangiectasias, minimal edema General: No clubbing, No cyanosis and No edema Psych Appearance: grossly normal Mental Status: mental status grossly normal Speech and movement: Normal speech and movement present Results Reviewed Results Reviewed: Angiogram from 12/21/2023 demonstrates adequate runoff to the right foot Assessment & Plan Assessment & Plan (1) PAD (peripheral artery disease): Comment: 12/21/2023 right lower extremity diagnostic angiogram Code(s): I73.9 - Peripheral vascular disease, unspecified Category: Medical Plan: In short patient has nonhealing right lower extremity diabetic foot ulceration. He will require right 2nd toe amputation. Risks benefits complications of the operation were discussed in detail with the patient. Agreed and consented. We will schedule him as soon as possible. In addition I will give him a 1 time script for pain medicine of Percocet for the gangrenous toe. Thank you for allowing us to assist in his care. Medications: New oxycodone-acetaminophen 5-325 mg (Percocet) Partial Fill upon patient request. 1 tab PO TID PRN 14 tabs 0RF pain
== END 2023-12-29 14:00 | disposition home or self-care (01) ==
PROVIDERS: PCP Physician Assistant; Visit Provider Surgery Vascular Surgery
DX: E11.621 Type 2 diabetes mellitus with foot ulcer (principal); I73.9 Peripheral vascular disease, unspecified
CPT/HCPCS: 99214

== ENCOUNTER → 2023-12-29 13:30 | Outpatient (BNVA) | payer MEDICARE, SELFPAY | PROVIDERS: PCP Physician Assistant; Visit Provider Surgery Vascular Surgery | DX: I73.9 Peripheral vascular disease, unspecified (principal) | CPT/HCPCS: 99212 ==

== ENCOUNTER 2024-01-03 09:23 | Outpatient (AMB) | payer MEDICARE, SELFPAY ==
--- NOTE | 2024-01-03 09:39 | A.OFFVIS_ITS ---
Intake VS Expanded 01/03/24 09:40 Height 5 ft 11 in Weight 175 lb 14.862 oz BMI 24.5 Intake Visit Reasons: DM Allergies sitagliptin [From JANUVIA] Allergy (Unknown, Verified 12/29/23 13:36) vomitting dulaglutide [From Trulicity] Adverse Reaction (Intermediate, Verified 12/29/23 13:36) Rash pioglitazone [From Actos] Adverse Reaction (Intermediate, Verified 12/29/23 13:36) palpatations HPI Nutrition Presentation Details Pt presents for MNT f/u for T2DM Pt presents with , Irina Pt did not bring glucometer to this appt to review Pt reports having 3 meals per day following healthy plate method Pt reports choosing sugar free foods as the snacks - (sugar free pudding, sugar free cookies), Pt reports choosing low salt chips and crackers as a bedtime snack or muffin /donut Pt denies diarrhea Most Recent Diabetes Results: Cholesterol 180 mg/dL (<200) 09/13/23 HDL Cholesterol 42 mg/dL (>40) 09/13/23 Triglycerides 173 mg/dL (<150) H 09/13/23 Creatinine 0.75 mg/dL (0.5-1.4) 12/21/23 Blood Urea Nitrogen 10 mg/dL (9-16) 12/20/23 Sodium 139 mmol/L (135-145) 12/20/23 Potassium 3.9 mmol/L (3.3-5.1) 12/20/23 Chloride 106 mmol/L (96-108) 12/20/23 Carbon Dioxide 26 mmol/L (22-29) 12/20/23 Calcium 9.8 mg/dL (8.4-10.2) 12/20/23 AST 9 U/L (5-37) 12/19/23 ALT 13 U/L (0-40) 12/19/23 Total Protein 9.0 g/dL (6.5-8.0) H 12/19/23 Albumin 4.4 g/dL (3.5-5.0) 12/19/23 [facility] Medical History Other and unspecified hyperlipidemia Essential hypertension Type 2 diabetes mellitus with unspecified complications Allergic rhinitis Stroke Nausea & vomiting Hospital discharge follow-up Atypical chest pain Diabetes Hyperlipidemia HTN (hypertension) Surgical History Hx of colonoscopy Family History Father No problems noted. Mother Myocardial infarction Sister Diabetes Hypertension Social History Household Members: Family Housing: House Do you presently have visiting nurse or other home services: No Alcohol intake: current Alcohol intake frequency: holidays/special occasions only Alcohol type: beer Patient Tobacco Use Status: Never used Tobacco e-Cigarette/Vaping Use: Never Used Second Hand Smoke Exposure: No service: No Current occupational status: retired Cognitive needs: No Hearing needs: No Vision needs: No Assessment & Plan Assessment & Plan (1) Type 2 diabetes mellitus with unspecified complications: Code(s): E11.8 - Type 2 diabetes mellitus with unspecified complications Plan: Healthy plate method , low sodium concepts Used wt : 83 kg Est kcal as per 25/kg BW: 2067 (40% carb, 30% fat/prot) Est fluid needs: 2100 ml/d (25 ml/kg bw) Rec fiber: increase to 8-10 g per day and gradually increase to 35 g or as tolerated Rec Na: < 2000 mg /d Educate patient on: (R= Reviewed, V = verbalizes understanding N/R= Needs review N/A= not applicable) * Food sources of carbohydrates and serving adequate serving sizes : R , v * Difference between complex carbohydrates and simple carbohydrates, role of fiber: R , v * Differences between fats (MUFA/PUFA/saturated fats, trans fats) and food sources of various fats: R * Food sources of sodium and salt and healthy modifications for heart health and kidney health: R * Vitamins and minerals: R * How to interpret food labels: R * Healthy Plate method concept: R V * Physical activity: benefits and precaution: R, V * hypoglycemia, sign , symptoms and rule of 15 to treat it: R Patient Instructions: Continue working on following healthy plate method, include iron rich foods in your diet (beans, spinach, eggs as example) Have glucerna as bedtime snack in place of cookies/chips/donuts at bedtime at least 4 times a week Keep hydrated by choosing water, low sugar beverages monitor your blood sugar as prescribed by your doctor, bring record/glucose reader to your next appt with computer architect for review Coding Level of Care Code Nutr Indiv Subseq (71392) Diagnoses Type 2 diabetes mellitus with unspecified complications E11.8 Time Spent (min) 30
[2024-01-03 09:40] VITALS: BMI 24.5
== END 2024-01-03 10:06 | disposition home or self-care (01) ==
PROVIDERS: PCP Physician Assistant; Visit Provider Dietitian, Registered
DX: E11.8 Type 2 diabetes mellitus with unspecified complications (principal)

== ENCOUNTER → 2024-01-03 09:23 | Outpatient (BNVA) | payer MEDICARE, SELFPAY | PROVIDERS: PCP Physician Assistant; Visit Provider Dietitian, Registered | DX: E11.8 Type 2 diabetes mellitus with unspecified complications (principal); R19.7 Diarrhea, unspecified; Z71.3 Dietary counseling and surveillance | CPT/HCPCS: 97803 ==

== ENCOUNTER 2024-01-09 11:32 | Day surgery (SDC) | payer MEDICARE, SELFPAY ==
--- NOTE | 2024-01-06 10:23 | P.CONAN_ITS ---
Documented by User: Janessa Lopez NP 01/06/24 10:32 HPI - Anesthesia Eval Consult details Narrative: 73yo M for Right second Toe Amputation [facility] [place] admit 12/18-12/21/23 hospital course: Patient was admitted for dry gangrene of right 2nd toe due to peripheral vascular disease and diabetes further complicated by hyperglycemia and cellulitis of the right lower extremity. He was put on vancomycin and Zosyn. He underwent arterial duplex which showed hemodynamically significant stenosis of the right posterior tibial artery. He underwent angiogram which revealed no interventional lesion. Recommendations from vascular were to discharged home on oral antibiotics with plan for short-term follow-up for amputation. Patient should hold metformin for 48 hours and hold Ozempic until surgery. For hypertension was continued on lisinopril and amlodipine. For history of CVA was continue aspirin statin. Follows [facility] cardiology. Last office visit 07/2023, cleared for TKA Anesthesia Pre-Procedure Meds Is the patient on any of the following meds?: Semaglutide (Ozempic) PMFSH Active Problems Active Problems: All Active Problems Cellulitis (Acute) PAD (peripheral artery disease) (Acute) Dry gangrene (Acute) Pre-op evaluation (Acute) COVID-19 (Acute) Atrial arrhythmia (Acute) Aortic valve sclerosis (Acute) Preoperative cardiovascular examination (Acute) Osteoarthritis of left knee (Acute) PAD (peripheral artery disease) (Acute) Hyperkalemia (Acute) Foot callus (Acute) Hyperlipidemia (Acute) Atypical chest pain (Acute) Elevated TSH (Acute) Eustachian tube dysfunction (Acute) Left ear pain (Acute) Allison onychomycosis (Acute) Other and unspecified hyperlipidemia (Acute) Essential hypertension (Acute) Type 2 diabetes mellitus with unspecified complications (Acute) Precordial chest pain (Acute) HTN (hypertension) (Acute) Nausea & vomiting (Acute) Hospital discharge follow-up (Acute) Type 2 diabetes mellitus (Acute) Past Medical History Medical History Other and unspecified hyperlipidemia Essential hypertension Type 2 diabetes mellitus with unspecified complications Allergic rhinitis Stroke Nausea & vomiting Hospital discharge follow-up Atypical chest pain Diabetes Hyperlipidemia HTN (hypertension) Family History Family History Father No problems noted. Mother Myocardial infarction Sister Diabetes Hypertension Surgical History Surgical History Hx of colonoscopy Social History Social History Household Members: Family Housing: House Do you presently have visiting nurse or other home services: No Alcohol intake: current Alcohol intake frequency: holidays/special occasions only Alcohol type: beer Patient Tobacco Use Status: Never used Tobacco e-Cigarette/Vaping Use: Never Used Second Hand Smoke Exposure: No Use of substances other than those prescribed or required for medical reasons: No Advance Directives: No Advance Directives Information Provided: Yes service: No Current occupational status: retired Cognitive needs: No Hearing needs: No Vision needs: No Meds Allergies Allergy/AdvReac Type Severity Reaction Status Date / Time sitagliptin [From JANUVIA] Allergy Unknown vomitting Verified 12/29/23 13:36 dulaglutide [From Trulicity] AdvReac Intermediate Rash Verified 12/29/23 13:36 pioglitazone [From Actos] AdvReac Intermediate palpatation Verified 12/29/23 13:36 s Home Medications ?Medication ?Instructions ?Recorded ?Confirmed ?Last Taken ?Type semaglutide 0.25 mg or 0.5 mg (2 0.5 mg subcut FR 12/19/23 01/09/24 12/19/23 History mg/3 mL) subcutaneous pen injector (Ozempic) simvastatin 40 mg tablet 40 mg PO DAILY@1900 12/19/23 01/09/24 12/18/23 History Exam Pertinent Lab Results Pertinent Lab Results: Laboratory Tests 12/20/23 12/21/23 05:43 06:51 WBC 5.6 Hgb 12.0 L Hct 36.1 L Plt Count 223 Sodium 139 Potassium 3.9 Chloride 106 Carbon Dioxide 26 BUN 10 Creatinine 0.75 Narrative Narrative: EKG 07/2023 sinus rhythm at 88/Min; premature supraventricular complexes; nonspecific ST-T changes; normal ME and corrected QT. Per 07/2023 Cardiac office note: Echocardiogram shows LVEF of 65-70%. Moderate aortic valve calcification and mild mitral annular calcification. In the stress test, able to exercise for 5.3 Mets. No angina. Reach target heart rate. Normal blood pressure response. No EKG evidence of ischemia. Perfusion imaging unremarkable. Assessment and Plan Assessment Anesthesia Assessment: Chart Reviewed Documented by User: Tariq Doss MD 01/09/24 14:10 PMF Past Medical History Medical History Other and unspecified hyperlipidemia Essential hypertension Type 2 diabetes mellitus with unspecified complications Allergic rhinitis Stroke Nausea & vomiting Hospital discharge follow-up Atypical chest pain Diabetes Hyperlipidemia HTN (hypertension) Family History Family History Father No problems noted. Mother Myocardial infarction Sister Diabetes Hypertension Family history of problems with anesthesia: No Surgical History Surgical History Hx of colonoscopy History of Problems with Anesthesia: No Social History Social History Household Members: Family Housing: House Do you presently have visiting nurse or other home services: No Alcohol intake: current Alcohol intake frequency: holidays/special occasions only Alcohol type: beer Patient Tobacco Use Status: Never used Tobacco e-Cigarette/Vaping Use: Never Used Second Hand Smoke Exposure: No Use of substances other than those prescribed or required for medical reasons: No Advance Directives: No Advance Directives Information Provided: Yes service: No Current occupational status: retired Cognitive needs: No Hearing needs: No Vision needs: No Meds Allergies Allergy/AdvReac Type Severity Reaction Status Date / Time sitagliptin [From JANUVIA] Allergy Unknown vomitting Verified 12/29/23 13:36 dulaglutide [From Trulicity] AdvReac Intermediate Rash Verified 12/29/23 13:36 pioglitazone [From Actos] AdvReac Intermediate palpatation Verified 12/29/23 13:36 s Home Medications ?Medication ?Instructions ?Recorded ?Confirmed ?Last Taken ?Type semaglutide 0.25 mg or 0.5 mg (2 0.5 mg subcut FR 12/19/23 01/09/24 12/19/23 History mg/3 mL) subcutaneous pen injector (Ozempic) simvastatin 40 mg tablet 40 mg PO DAILY@1900 12/19/23 01/09/24 12/18/23 History Exam Airway Mallampati Class: II TM Dist: <=3cm Neck ROM: Full Loose/Missing/Broken Teeth: Yes, Upper and Lower Heart: ok Lungs: ok Assessment and Plan Final Anesthetic Review Family History of Problems with Anesthesia: No History of Problems with Anesthesia: No NPO: Yes ASA Class: III Final Preanesthetic Review: No Changes in Pt Med Stat, Meds/Allgs Chart Reviewed, Consent Obtained/Reviewed and Anes Risks/Benef Reviewed Patient Risk: High Procedure Risk: Low Anesthetic Plan Anesthetic Plan: MAC: and Agree w/ Assess. and Plan Disposition: Standard PACU
[2024-01-09 12:23] VITALS: BMI 25.1
[2024-01-09 12:27] VITALS: BP 127/79; PULSE 105; RESP 18; TEMP 37.7; O2SAT 97
[2024-01-09 12:40] LABS: Glucose, Whole Blood 185 mg/dL (60-115)
--- NOTE | 2024-01-09 13:18 | MHC.SHP ---
Pre-Procedural Eval Section A - 24 Hr Update-Section A only Date of Service: 01/09/24 The patient is an INPATIENT: No Changes since office visit: Yes Patient answered all questions The patient has been examined within 24 hours of the surgical procedure. The History & Physical has been completed within 30 days and I have reviewed it.: Yes Section B - Complete if H&P > 30 days Chief Complaint: Osteomyelitis, unspecified Allergies: Allergies Allergy/AdvReac Type Severity Reaction Status Date / Time sitagliptin [From JANUVIA] Allergy Unknown vomitting Verified 12/29/23 13:36 dulaglutide [From Trulicity] AdvReac Intermediate Rash Verified 12/29/23 13:36 pioglitazone [From Actos] AdvReac Intermediate palpatation Verified 12/29/23 13:36 s Plan I have reviewed the history and physical and performed a pertinent physical examination on my patient. No changes have occurred unless specified. Time Spent With Patient Time: Total time managing care of this patient today ____ minutes.
--- NOTE | 2024-01-09 14:55 | W.PM.OPN ---
Operative Note Operative Note Date of Service: 01/09/24 Narrative: Operative note by [facility] Preoperative diagnosis: Right 2nd toe gangrene Postoperative diagnosis: Same Procedure: Right 2nd toe amputation Surgeon:Tj Simpson M.D. Road Design Engineer: None Anesthesia: Local with sedation by Dr. Doss Specimens: 1 Drains: None Estimated blood loss: Minimal Indications: 73-year-old gentleman with gangrenous right 2nd toe. He now presents for amputation. The patient has signed the informed consent after reviewing risks, complications, benefits, and alternatives previously discussed with the patient. The patient was given the opportunity to ask any additional questions or voice any concerns. All questions were answered to the patient's satisfaction. Procedure in detail: Patient was brought to the operating room prior to which a time-out was called for patient identification and site verification. Right 2nd toe was prepped and draped in standard surgical fashion. [place] incision was made over that 2nd toe. Take the incision was taken down to the metatarsal head. The toe was removed in its entirety. The underlying tissue was not the best in nature it was debrided down to healthy tissue. There was some back bleeding at the conclusion. We then irrigated this wound out thoroughly. Electrocautery was used to obtain hemostasis. Deep layer was reapproximated using 2 0 Polysorb superficial layer with a 2-0 nylon in a mattress fashion in finally skin with skin clips. At the end the case sponge instrument counts were correct. Patient tolerated the procedure well. Returned to recovery with stable vitals. This note is constructed using voice recognition software. While every effort has been made to ensure accuracy, laborer yard errors may have been included. Thank you for allowing me to participate in the care of your patient. Yours sincerely, Tj Simpson MD, FACS, R.P.V.I.
[2024-01-09 14:59] VITALS: BP 140/89; PULSE 97; RESP 20; TEMP 36.8; O2SAT 99
[2024-01-09 15:14] VITALS: BP 142/80; PULSE 100; RESP 20; O2SAT 99
[2024-01-09 15:31] VITALS: BP 134/82; PULSE 101; RESP 17; TEMP 36.3; O2SAT 99
== END 2024-01-09 15:50 | disposition home or self-care (01) ==
PROVIDERS: PCP Physician Assistant; Visit Provider Surgery Vascular Surgery
PROC: (CPT 28810; principal; 2024-01-09 13:20)
DX: E11.52 Type 2 diabetes mellitus with diabetic peripheral angiopathy with gangrene (principal); I96 Gangrene, not elsewhere classified; M86.171 Other acute osteomyelitis, right ankle and foot; M87.377 Other secondary osteonecrosis, right toe(s); Z79.85 Long-term (current) use of injectable non-insulin antidiabetic drugs; Z79.84 Long term (current) use of oral hypoglycemic drugs
CPT/HCPCS: 28810; 82947; 88305; 88311; J0690; J2704; J2795

== ENCOUNTER → 2024-01-09 11:32 | Outpatient (BNV) | payer MEDICARE, SELFPAY | PROVIDERS: PCP Physician Assistant; Visit Provider Surgery Vascular Surgery | DX: I96 Gangrene, not elsewhere classified (principal); M86.9 Osteomyelitis, unspecified | CPT/HCPCS: 28810 ==

== ENCOUNTER 2024-01-16 14:29 | Inpatient (IN) | payer MEDICARE, SELFPAY ==
--- NOTE | ~2024-01-16 | US_ITS ---
EXAMINATION: Noninvasive assessment of the right lower extremities with ARTERIAL DUPLEX CLINICAL INFORMATION: Nonhealing right toe amputation site TECHNIQUE: Duplex Doppler techniques with waveform analysis and measurement of velocities in the bilateral common femoral, profunda femoris, superficial femoral, popliteal and tibial arteries were performed. Additionally, ankle pulse volume recordings, ankle pressure measurements and ankle brachial indices were obtained of the lower extremity arterial system bilaterally. The study was performed only at rest. COMPARISON: 12/19/2023 and arteriogram from 12/21/2023 FINDINGS: DIRECT DUPLEX DOPPLER FINDINGS: RIGHT LEG: Common femoral artery: 150 cm/s, phasicity: Triphasic, mild atherosclerotic plaque Profunda femoris artery: 95 cm/s, phasicity: Biphasic Superficial femoral artery (proximal): 80.3 cm/s, phasicity: Triphasic Superficial femoral artery (mid): 102 cm/s, phasicity: Triphasic, mild atherosclerotic plaque Superficial femoral artery (distal): 77.4 cm/s, phasicity: Triphasic, mild atherosclerotic plaque Popliteal artery: 83.8 cm/s, phasicity: Triphasic, mild atherosclerotic plaque Posterior tibial artery: 91.1 cm/s, phasicity: Monophasic Peroneal artery: 96.6 cm/s, phasicity: Triphasic Anterior tibial artery: 103 cm/s, phasicity: Monophasic Dorsalis pedis artery: 112 cm/s, phasicity:Monophasic US/US arterial duplex LE RT IMPRESSION: Mild atherosclerotic plaque. No significant stenosis or occlusion. Monophasic waveforms in the posterior tibial and anterior tibial arteries. Normal velocities.
--- NOTE | ~2024-01-16 | XR_ITS ---
EXAMINATION: XR FOOT, RIGHT CLINICAL INFORMATION: Concern for osteomyelitis status post amputation. COMPARISON: December 19, 2023. TECHNIQUE: AP, lateral, and oblique views of the right foot. FINDINGS: The patient is status post amputation of the right second digit. Associated surgical skin bart, soft tissue swelling, and minimal subcutaneous air in this region. No evidence of lytic or sclerotic bony lesion. No periosteal reaction identified. No fracture or dislocation identified. Joint spaces appear maintained. Plantar and Achilles calcaneal spurs. Extensive small vessel arterial calcification consistent with diabetic and/or or renal calcific atherosclerosis. XR/XR foot RT min 3V IMPRESSION: No plain film evidence of osteomyelitis. Status post amputation of the right second digit. Associated surgical skin bart, soft tissue swelling, and minimal subcutaneous air in this region.
--- NOTE | ~2024-01-16 | XR_ITS ---
EXAMINATION: XR CHEST CLINICAL INFORMATION: Pneumonia. Postoperative day 7. COMPARISON: Chest radiograph 02/09/2022. TECHNIQUE: Frontal view of the chest was obtained. FINDINGS: Normal appearance of the cardiomediastinal silhouette. No focal airspace opacities, pleural effusion or pneumothorax. Azygos fissure. No acute osseous findings. XR/XR chest 1V IMPRESSION: No acute cardiopulmonary findings.
[2024-01-16 15:08] VITALS: BP 150/74; PULSE 106; RESP 20; TEMP 38.1; O2SAT 97; BMI 24.2
--- NOTE | 2024-01-16 15:12 | ED.GENADULT ---
HPI - General Adult General Chief complaint: General Medical Stated complaint: infection r 2nd toe Time Seen by Provider: 01/16/24 17:58 Source: patient Mode of arrival: ambulatory Limitations: no limitations History of Present Illness HPI narrative: 73-year-old male status post right 2nd toe amputation surgery presents to ED for foul odor from surgical wound with fever and chills. Patient states no new trauma. Patient states smell is very bad. Patient denies any abdominal pain, urinary symptoms, or URI symptoms Related Data Home Medications ?Medication ?Instructions ?Recorded ?Confirmed simvastatin 40 mg tablet 40 mg PO BEDTIME 12/19/23 01/16/24 acetaminophen 500 mg tablet 500 mg PO Q6H PRN Pain 01/16/24 01/16/24 (Tylenol Extra Strength) Previous Rx's ?Medication ?Instructions ?Recorded aspirin 81 mg tablet,delayed 81 mg PO DAILY 90 days #90 tabs 11/08/22 release blood sugar diagnostic (FreeStyle #100 ea 01/03/23 Lite Strips) blood-glucose meter (FreeStyle #1 ea 01/03/23 Lite Meter kit) blood-glucose sensor (Envia Lá G7 #3 ea 04/26/23 Sensor device) metformin 1,000 mg tablet 1,000 mg PO BID 90 days #180 tabs 06/17/23 amlodipine 10 mg tablet 10 mg PO DAILY #90 tabs 06/27/23 walker #1 ea 09/09/23 walker #1 ea 09/09/23 lisinopril 10 mg tablet 10 mg PO DAILY 90 days #90 tabs 12/28/23 Allergies Allergy/AdvReac Type Severity Reaction Status Date / Time sitagliptin [From JANUVIA] Allergy Unknown vomitting Verified 01/16/24 15:09 dulaglutide [From Trulicity] AdvReac Intermediate Rash Verified 01/16/24 15:09 pioglitazone [From Actos] AdvReac Intermediate palpatation Verified 01/16/24 15:09 s Review of Systems Review of Systems: Right foot wound infection Yes all other systems are reviewed and are negative [facility] Past Medical History Medical History Other and unspecified hyperlipidemia Essential hypertension Type 2 diabetes mellitus with unspecified complications Allergic rhinitis Stroke Nausea & vomiting Hospital discharge follow-up Atypical chest pain Diabetes Hyperlipidemia HTN (hypertension) Surgical History Hx of colonoscopy Family History Family History Father No problems noted. Mother Myocardial infarction Sister Diabetes Hypertension Social History Social History Household Members: Spouse Housing: House Do you presently have visiting nurse or other home services: No Alcohol intake: current Alcohol intake frequency: holidays/special occasions only Alcohol type: beer Patient Tobacco Use Status: Never used Tobacco Smoked in Last 30 Days: No e-Cigarette/Vaping Use: Never Used Second Hand Smoke Exposure: No Use of substances other than those prescribed or required for medical reasons: No Currently Displaying Signs/Symptoms of Drug Intoxication Withdrawal: No Have you been hit, kicked, punched, or otherwise hurt by someone within the past year? If so, by whom?: No Do you feel safe in your current relationship?: Yes Is there a partner from a previous relationship who is making you feel unsafe now?: No Are you made to feel afraid or neglected: No Advance Directives: Yes Advance Directives on File: Yes Advance Directives Date on File: 12/22/23 Do you have a plan to hurt others: No Plan Recently lost weight without trying: No Nutrition Risks: No Nutritional Risk Poor oral hygiene: No service: No Current occupational status: retired Cognitive needs: No Hearing needs: No Vision needs: No Physical Exam ED Vital Signs: Vital Signs - 24 hr 01/16/24 18:26 Temperature 99.9 F Pulse Rate 99 Respiratory Rate 18 Blood Pressure 136/71 Pulse Oximetry 99 BMI result Body Mass Index 24.2 Const General: cooperative, healthy appearing, comfortable, no acute distress, well developed, alert, awake and Physically active Orientation/consciousness: oriented to person, oriented to place, oriented to time and patient oriented x3 HENMT Head: Yes normal to inspection, Yes No palpable skull fracture present, Yes normocephalic and Yes atraumatic Eyes General: appearance normal, both eyes and all related structures Neck Neck: Yes normal visual inspection, Yes full ROM, Yes no lymphadenopathy, Yes no meningeal signs, Yes trachea midline, Yes supple, No anterior neck swelling and No tender Chest Chest palpation & inspection: normal inspection of the chest and normal palpation of entire chest wall Resp Effort & Inspection: normal respiratory effort and able to speak in complete sentences Auscultation: clear to auscultation bilaterally Cardio Jugular venous distension: no JVD Heart sounds: S1 normal heart sound present and S2 normal heart sound present GI Inspection: Yes normal to inspection Palpation (GI): Soft to palpation, not firm, nontender, no guarding and not rigid General: No CVA tenderness and Yes no CVA tenderness Back/Spine/Pelvis Back: no CVA tenderness, No CVA tenderness and No back tenderness Skin General skin exam: no rashes or lesions noted, elasticity normal and turgor normal Neuro General: oriented to person, oriented to place, oriented to time, patient oriented x3, gait normal, tone normal, moves all extremities, Normal light touch and pain sensation, no meningeal signs, no focal motor deficits, CN's II-XI intact bilaterally and normal sensation to monofilament Extrem Other: Right foot surgical wound. General: Yes normal to inspection, Yes full ROM and Yes capillary refill normal Psych Appearance: grossly normal, well kempt and not disheveled Course Course Course Narrative: RME performed by Talisha Garcia PA-C. Patient is a 73 year old assigned male at presenting to the emergency department with foot pain. Patient's right 2nd toe was amputated on 01/09/2024. Patient's states that the patient has been having fevers at home and hallucinations. Patient's states that she has been changing the bandages like she is supposed to however, the wound smells and she is concerned that it is infected. Patient's states that they called Dr. Simpson's office who recommended the patient come to the ER. Detailed physical exam and review of systems are deferred to the bucket operator. Labs ordered. medical assistant per diem made aware of patient. Medications Administered Generic Name Dose Route Start Last Admin Trade Name Freq PRN Reason Stop Dose Admin Acetaminophen 650 mg 01/16/24 20:17 01/17/24 19:19 Acetaminophen 325 Mg Tablet PO 650 mg Q6H PRN Administration Pain, Mild (Pain Scale 1-3) Amlodipine Besylate 10 mg 01/18/24 09:00 01/18/24 07:49 Amlodipine Besylate 10 Mg Tablet PO 10 mg DAILY ROSENDO Administration Protocol Aspirin 81 mg 01/18/24 09:00 01/18/24 07:49 Aspirin Enteric Coated 81 Mg Tablet.Dr PO 81 mg DAILY ROSENDO Administration Atorvastatin Calcium 20 mg 01/17/24 21:00 01/17/24 19:14 Atorvastatin Calcium 20 Mg Tablet PO 20 mg BEDTIME ROSENDO Administration Enoxaparin Sodium 40 mg 01/16/24 20:30 01/17/24 19:14 Enoxaparin Sodium 40 Mg/0.4 Ml Syringe SUBCUT 40 mg Q24H ROSENDO Administration Piperacillin Sod/Tazobactam 100 mls @ 200 mls/hr 01/17/24 01:00 01/18/24 06:31 Sod 4.5 gm/ Sodium Chloride IV Infused Q6H ROSENDO Infusion Vancomycin HCl 1,500 mg/ 500 mls @ 333.333 mls/hr 01/17/24 20:00 01/17/24 20:54 Sodium Chloride IV Infused Q24H ROSENDO Infusion Insulin Human Lispro 0 unit 01/17/24 07:30 01/18/24 07:51 Insulin Lispro 100 Unit/Ml 3 Ml Vial SUBCUT 2 unit QIDACHS [facility] Administration Protocol Lisinopril 10 mg 01/18/24 09:00 01/18/24 07:50 Lisinopril 10 Mg Tablet PO 10 mg DAILY ROSENDO Administration Protocol Metformin HCl 1,000 mg 01/17/24 21:00 01/18/24 07:49 Metformin Hcl 1,000 Mg Tablet PO 1,000 mg BID ROSENDO Administration Morphine Sulfate 4 mg 01/17/24 01:22 01/18/24 09:35 Morphine Sulfate 4 Mg/Ml Cartridge IVPUSH 4 mg Q6H PRN Administration Pain, Severe (Pain Scale 7-10) Protocol Sodium Chloride 3 ml 01/17/24 00:00 01/18/24 07:50 0.9 % Sodium Chloride Flush 3 Ml Syringe IVFLUSH 3 ml QSHIFT [facility] Administration Discontinued Medications Generic Name Dose Route Start Last Admin Trade Name Freq PRN Reason Stop Dose Admin Acetaminophen 650 mg 01/16/24 18:33 01/16/24 18:47 Acetaminophen 325 Mg Tablet PO 01/16/24 18:34 650 mg ONCE ONE Administration Vancomycin HCl 2,000 mg in 500 mls @ 250 mls/hr 01/16/24 18:15 01/16/24 21:31 Vancomycin/Ns IV 01/16/24 20:14 Infused ONCE ONE Infusion Piperacillin Sod/Tazobactam 50 mls @ 100 mls/hr 01/16/24 18:15 01/16/24 19:37 Sod 3.375 gm/ Sodium Chloride IV 01/16/24 18:44 Infused ONCE ONE Infusion Sodium Chloride 1,000 mls @ 999 mls/hr 01/16/24 18:33 01/16/24 21:30 Ns IV 01/16/24 19:33 Infused .Q1H1M STA Infusion Medical Decision Making Medical Decision Making MDM Narrative: 73-year-old male with possible right foot surgical wound infected. Wound definitely has foul smell odor. X-ray negative osteomyelitis will check for urine and chest x-ray. Antibiotics ordered and fluids. 11:30pm: patient admitted to hospiatlists Differential Diagnosis Differential Diagnoses: The differential diagnosis associated with the presentation includes (sepsis, cellulitis, wound infection) Admission/Observation Consideration of admission/observation: Escalation of care including admission/observation considered Consult Healthcare Provider Management of the patient was discussed with: Hospitalist (Dr. Wong) Lab Data [facility] Lab Attestation statement: I reviewed the patient's lab results. 01/17/24 05:12 01/18/24 05:58 Labs: Lab Results 01/16/24 01/16/24 01/16/24 Range/Units 16:59 17:06 18:51 WBC 10.4 (4.8-10.8) X10*3/uL RBC 3.62 L (4.60-5.80) X10*6/uL Hgb 10.6 L (14.0-18.0) g/dl Hct 32.5 L (42.0-52.0) % MCV 89.8 (80.0-98.0) fL MCH 29.3 (27.0-33.0) pg MCHC 32.6 (31.0-36.0) g/dl RDW 12.0 (11.0-16.0) % Plt Count 417 H D (160-400) X10*3/uL MPV 9.3 L (9.4-12.4) fL Immature Gran % (Auto) 0.6 H (0.0-0.4) % Neut % (Auto) 81.4 H (45-73) % Lymph % (Auto) 12.2 L (20-40) % [place] % (Auto) 5.3 (2-11) % Eos % (Auto) 0.4 (0-4) % Baso % (Auto) 0.1 (0-2) % Lymph # (Auto) 1.3 (1.2-4.9) X10*3/uL [place] # (Auto) 0.6 (0.1-1.2) X10*3/uL Eos # (Auto) 0.0 (0.0-0.4) X10*3/uL Baso # (Auto) 0.0 (0.0-0.2) X10*3/uL Abs Immat Gran (auto) 0.06 H (0.00-0.03) X10*3/uL Absolute Neuts (auto) 8.4 H (2.0-8.3) x10*3/uL Absolute Nucleated RBC 0.000 (0.0-0.012) X10*3/uL Nucleated RBC % (auto) 0.0 (0.0-0.2) /100WBC ESR 97 H (0-15) MM/HR Sodium 131 L (135-145) mmol/L Potassium 4.6 (3.3-5.1) mmol/L Chloride 94 L (96-108) mmol/L Carbon Dioxide 24 (22-29) mmol/L Anion Gap 18 (12-20) BUN 19 H (9-16) mg/dL Creatinine 1.02 (0.5-1.4) mg/dL Estim Creat Clear Calc 66.6 Estimated GFR > 60 Random Glucose 283 H (60-115) mg/dL Lactic Acid 2.3 H* (0.5-2.0) mmol/L Lactic Acid F/U @ 2Hr (0.5-2.0) mmol/L Calcium 9.9 (8.4-10.2) mg/dL Magnesium 1.7 (1.6-2.6) mg/dL Total Bilirubin 0.3 (0.0-1.0) mg/dL AST 34 (5-37) U/L ALT 37 (0-40) U/L Alkaline Phosphatase 107 (39-117) U/L C-Reactive Protein 31.09 H (< or = 0.50) mg/dL Total Protein 8.9 H (6.5-8.0) g/dL Albumin 3.8 (3.5-5.0) g/dL Urine Color Yellow Urine Appearance Clear Urine pH 6.0 (5.0-9.0) Ur Specific [place] 1.020 (1.005-1.025) Urine Protein 30 (1+) H (Neg-Trace) mg/dL Urine Glucose (UA) 100 H (Negative) mg/dL Urine Ketones Trace (Negative) mg/dL Urine Blood Negative (Negative) Urine Nitrite Negative (Negative) Ur Leukocyte Esterase Negative (Negative) Urine RBC 0-2 (0-2) /HPF Urine WBC 0-5 (0-5) /HPF Ur Squamous Epith Cells 0-2 (0-2) /HPF Urine Bacteria None Seen (None Seen) Hyaline Casts 0-2 (0-2) /LPF Influenza Type A (PCR) NEGATIVE (Negative) Influenza Type B (PCR) NEGATIVE (Negative) RSV RNA Qual (PCR) NEGATIVE (Negative) SARS-CoV-2 RNA (RT-PCR) NEGATIVE (Negative) 01/16/24 Range/Units 19:24 WBC (4.8-10.8) X10*3/uL RBC (4.60-5.80) X10*6/uL Hgb (14.0-18.0) g/dl Hct (42.0-52.0) % MCV (80.0-98.0) fL MCH (27.0-33.0) pg MCHC (31.0-36.0) g/dl RDW (11.0-16.0) % Plt Count (160-400) X10*3/uL MPV (9.4-12.4) fL Immature Gran % (Auto) (0.0-0.4) % Neut % (Auto) (45-73) % Lymph % (Auto) (20-40) % [place] % (Auto) (2-11) % Eos % (Auto) (0-4) % Baso % (Auto) (0-2) % Lymph # (Auto) (1.2-4.9) X10*3/uL [place] # (Auto) (0.1-1.2) X10*3/uL Eos # (Auto) (0.0-0.4) X10*3/uL Baso # (Auto) (0.0-0.2) X10*3/uL Abs Immat Gran (auto) (0.00-0.03) X10*3/uL Absolute Neuts (auto) (2.0-8.3) x10*3/uL Absolute Nucleated RBC (0.0-0.012) X10*3/uL Nucleated RBC % (auto) (0.0-0.2) /100WBC ESR (0-15) MM/HR Sodium (135-145) mmol/L Potassium (3.3-5.1) mmol/L Chloride (96-108) mmol/L Carbon Dioxide (22-29) mmol/L Anion Gap (12-20) BUN (9-16) mg/dL Creatinine (0.5-1.4) mg/dL Estim Creat Clear Calc Estimated GFR Random Glucose (60-115) mg/dL Lactic Acid (0.5-2.0) mmol/L Lactic Acid F/U @ 2Hr 0.9 (0.5-2.0) mmol/L Calcium (8.4-10.2) mg/dL Magnesium (1.6-2.6) mg/dL Total Bilirubin (0.0-1.0) mg/dL AST (5-37) U/L ALT (0-40) U/L Alkaline Phosphatase (39-117) U/L C-Reactive Protein (< or = 0.50) mg/dL Total Protein (6.5-8.0) g/dL Albumin (3.5-5.0) g/dL Urine Color Urine Appearance Urine pH (5.0-9.0) Ur Specific [place] (1.005-1.025) Urine Protein (Neg-Trace) mg/dL Urine Glucose (UA) (Negative) mg/dL Urine Ketones (Negative) mg/dL Urine Blood (Negative) Urine Nitrite (Negative) Ur Leukocyte Esterase (Negative) Urine RBC (0-2) /HPF Urine WBC (0-5) /HPF Ur Squamous Epith Cells (0-2) /HPF Urine Bacteria (None Seen) Hyaline Casts (0-2) /LPF Influenza Type A (PCR) (Negative) Influenza Type B (PCR) (Negative) RSV RNA Qual (PCR) (Negative) SARS-CoV-2 RNA (RT-PCR) (Negative) Independent Interpretation I performed an independent interpretation of an: Plain X-Ray Radiology Impression Discussion of test interpretation with radiology: I have reviewed the radiologist's reading. Independent Historian Clinical information obtained from an independent historian. History obtained from or confirmed by: Spouse () and Other (patient) External Record Review External record reviewed: Other (prior visits) Critical Care Time Critical Care Time Critical Care Time: Yes Total Critical Care Time: 60 Attestation: patient lactic positive with infected wound of foot. antibioics, labs, and fluids ordered. Patient admitted Discharge Plan Discharge Clinical Impression: Cellulitis Qualifiers: Site of cellulitis: extremity Site of cellulitis of extremity: lower extremity Laterality: right Qualified Code(s): L03.115 - Cellulitis of right lower limb Patient Disposition: Admitted As Inpatient Interventions: Admission Worksheet (ED) Last Done: 01/17/24 08:30 Discharge Date/Time: 01/17/24 09:21
[2024-01-16 17:11] LABS: MANUAL DIFF FLAG NO
[2024-01-16 17:13] LABS: Basophils Percent Auto 0.1 % (0-2); Eosinophils Percent Auto 0.4 % (0-4); Hematocrit 32.5 % (42.0-52.0); Hemoglobin 10.6 g/dl (14.0-18.0); Imm Gran Abs Auto 0.06 X10*3/uL (0.00-0.03); Imm Gran Pct Auto 0.6 % (0.0-0.4); Lymphocytes Absolute Auto 1.3 X10*3/uL (1.2-4.9); Lymphocytes Percent Auto 12.2 % (20-40); Mean Corpuscular HGB Conc 32.6 g/dl (31.0-36.0); Mean Corpuscular Hemoglobin 29.3 pg (27.0-33.0); Mean Corpuscular Volume 89.8 fL (80.0-98.0); Mean Platelet Volume 9.3 fL (9.4-12.4); Monocytes Absolute Auto 0.6 X10*3/uL (0.1-1.2); Monocytes Percent Auto 5.3 % (2-11); Neutrophils Absolute Auto 8.4 x10*3/uL (2.0-8.3); Neutrophils Percent Auto 81.4 % (45-73); Platelet Count 417 X10*3/uL (160-400); Red Blood Count 3.62 X10*6/uL (4.60-5.80); White Blood Count 10.4 X10*3/uL (4.8-10.8)
[2024-01-16 17:41] LABS: Alanine Aminotransferase 37 U/L (0-40); Albumin Level 3.8 g/dL (3.5-5.0); Alkaline Phosphatase 107 U/L (39-117); Anion Gap 18 (12-20); Aspartate Amino Transferase 34 U/L (5-37); Bilirubin Total 0.3 mg/dL (0.0-1.0); Blood Urea Nitrogen 19 mg/dL (9-16); C Reactive Protein 31.09 mg/dL (< or = 0.50); Calcium 9.9 mg/dL (8.4-10.2); Carbon Dioxide 24 mmol/L (22-29); Chloride 94 mmol/L (96-108); Creatinine Clr Calc Pharmacy 66.6; Estimated Glomerular Filt Rate > 60; Glucose Random 283 mg/dL (60-115); Magnesium 1.7 mg/dL (1.6-2.6); Potassium 4.6 mmol/L (3.3-5.1); Sodium 131 mmol/L (135-145); Total Protein 8.9 g/dL (6.5-8.0)
[2024-01-16 17:50] LABS: Erythrocyte Sedimentation Rate 97 MM/HR (0-15); Lactic Acid 2.3 mmol/L (0.5-2.0)
[2024-01-16 18:02] LABS: Influenza A PCR NEGATIVE (Negative); Influenza B PCR NEGATIVE (Negative); Resp Syncy Virus RNA Qual PCR NEGATIVE (Negative); SARS COV2 PCR INHOUSE NEGATIVE (Negative)
[2024-01-16 18:26] VITALS: BP 136/71; PULSE 99; RESP 18; TEMP 37.7; O2SAT 99
[2024-01-16] MEDS: Piperacillin Sodium/Tazobactam 3.375 GM in 0.9 % Sodium Chloride 50 ML IV (18:47)
[2024-01-16] MEDS: Acetaminophen 325 MG TABLET 650 MG PO (18:47)
[2024-01-16] MEDS: 0.9 % Sodium Chloride 1,000 ML 999 ML IV (18:47)
[2024-01-16 19:01] LABS: Appearance Urine Clear; Color Urine Yellow; Glucose Urine UA 100 mg/dL (Negative); Leukocyte Esterase Urine Negative (Negative); Nitrite Urine Negative (Negative); UMIC TRIGGER UACC YES; Urine Blood Negative (Negative); Urine Ketones Trace mg/dL (Negative); Urine Protein 30 (1+) mg/dL (Neg-Trace)
[2024-01-16 19:07] LABS: Bacteria Urine None Seen (None Seen); Hyaline Casts Urine 0-2 /LPF (0-2); RBC Urine 0-2 /HPF (0-2); Squamous Epithelial Cell Urine 0-2 /HPF (0-2); WBC Urine 0-5 /HPF (0-5)
[2024-01-16 19:09] LABS: Reflex Lactate? Lactic Acid Added
[2024-01-16] MEDS: vancomycin/NS 2,000 MG/500 ML PLAST..BAG 250 MG IV (19:37)
[2024-01-16 19:41] LABS: ~Lactic Acid-LAB USE ONLY 0.9 mmol/L (0.5-2.0)
--- NOTE | 2024-01-16 20:19 | P.HPHOSP_ITS ---
History of Present Illness Date of Service: 01/16/24 Chief Complaint: Foot infection This is a 73-year-old male with pertinent history of peripheral vascular disease status post right 2nd toe amputation, non insulin-dependent diabetes mellitus, essential hypertension, mixed hyperlipidemia, history of CVA who presents to the emergency department for concerns of right foot infection. Patient was admitted on 12/21/2023 for dry gangrene of right 2nd toe with cellulitis and discharged on 12/20 with p.o. antibiotics. Patient underwent right 2nd toe amputation on 01/[address] Simpson. Patient states that dressing was removed on 01/12/2024 and since the removal of dressing, he has noticed foul-smelling purulent drainage from the amputation site. He has associated chills and fever 101.5 noted on 01/14/2024. No chest discomfort, palpitations, shortness of breath, abdominal pain, changes in urinary or bowel habits. In the emergency department, patient was initiated on empiric IV antibiotics Review of Systems 2 Constitutional: Constitutional: Reports chills and Reports fever(s) Cardiovascular: Cardiovascular: Reports no additional cardiovascular complaints Respiratory: Respiratory: Reports no additional respiratory complaints Gastrointestinal: Gastrointestinal: Reports no additional gastrointestinal complaints Genitourinary: Genitourinary: Reports no additional male genitourinary complaints [facility] Medical History Other and unspecified hyperlipidemia Essential hypertension Type 2 diabetes mellitus with unspecified complications Allergic rhinitis Stroke Nausea & vomiting Hospital discharge follow-up Atypical chest pain Diabetes Hyperlipidemia HTN (hypertension) Family History Father No problems noted. Mother Myocardial infarction Sister Diabetes Hypertension Surgical History Hx of colonoscopy Social History Household Members: Family Housing: House Do you presently have visiting nurse or other home services: No Alcohol intake: current Alcohol intake frequency: holidays/special occasions only Alcohol type: beer Patient Tobacco Use Status: Never used Tobacco Smoked in Last 30 Days: No e-Cigarette/Vaping Use: Never Used Second Hand Smoke Exposure: No Use of substances other than those prescribed or required for medical reasons: No Advance Directives: Yes Advance Directives on File: Yes Advance Directives Date on File: 12/22/23 Do you have a plan to hurt others: No Plan service: No Current occupational status: retired Cognitive needs: No Hearing needs: No Vision needs: No Meds Allergies Allergy/AdvReac Type Severity Reaction Status Date / Time sitagliptin [From JANUVIA] Allergy Unknown vomitting Verified 01/16/24 15:09 dulaglutide [From Trulicity] AdvReac Intermediate Rash Verified 01/16/24 15:09 pioglitazone [From Actos] AdvReac Intermediate palpatation Verified 01/16/24 15:09 s Home Medications ?Medication ?Instructions ?Recorded ?Confirmed ?Last Taken ?Type simvastatin 40 mg tablet 40 mg PO DAILY@1900 12/19/23 01/09/24 12/18/23 History Physical Exam 2 Vital Signs and Narrative: Vital Signs: Last Vital Signs Temp 99.9 F 01/16/24 18:26 Pulse 99 01/16/24 18:26 Resp 18 01/16/24 18:26 BP 136/71 01/16/24 18:26 Pulse Ox 99 01/16/24 18:26 O2 Del Method Room Air 01/16/24 15:08 BMI result Body Mass Index 24.2 Middle-aged male lying in bed in no distress Neck supple, no JVD Regular rate and rhythm, S1-S2 heard Regular breath sounds bilaterally, no wheezing or crackles appreciated Abdomen soft nontender, no guarding, no rigidity Patient is awake, alert and oriented to self, place, time and person ; no focal motor deficit Skin: Right foot with purulent foul-smelling drainage from amputation site with erythema, warmth (as pictured below) No pedal edema Skin: Other: Results Labs 01/16/24 17:06 01/16/24 17:06 Labs: Laboratory Results - last 24 hr 01/16/24 01/16/24 01/16/24 16:59 17:06 18:51 MCV 89.8 MCH 29.3 MCHC 32.6 RDW 12.0 Plt Count 417 H D MPV 9.3 L Immature Gran % (Auto) 0.6 H Neut % (Auto) 81.4 H Lymph % (Auto) 12.2 L [place] % (Auto) 5.3 Eos % (Auto) 0.4 Baso % (Auto) 0.1 Lymph # (Auto) 1.3 [place] # (Auto) 0.6 Eos # (Auto) 0.0 Baso # (Auto) 0.0 Abs Immat Gran (auto) 0.06 H Absolute Neuts (auto) 8.4 H Absolute Nucleated RBC 0.000 Nucleated RBC % (auto) 0.0 ESR 97 H Anion Gap 18 Estim Creat Clear Calc 66.6 Estimated GFR > 60 Random Glucose 283 H Lactic Acid 2.3 H* Lactic Acid F/U @ 2Hr Calcium 9.9 Magnesium 1.7 Total Bilirubin 0.3 AST 34 ALT 37 Alkaline Phosphatase 107 C-Reactive Protein 31.09 H Total Protein 8.9 H Albumin 3.8 Urine Color Yellow Urine Appearance Clear Urine pH 6.0 Ur Specific [place] 1.020 Urine Protein 30 (1+) H Urine Glucose (UA) 100 H Urine Ketones Trace Urine Blood Negative Urine Nitrite Negative Ur Leukocyte Esterase Negative Urine RBC 0-2 Urine WBC 0-5 Ur Squamous Epith Cells 0-2 Urine Bacteria None Seen Hyaline Casts 0-2 Influenza Type A (PCR) NEGATIVE Influenza Type B (PCR) NEGATIVE RSV RNA Qual (PCR) NEGATIVE SARS-CoV-2 RNA (RT-PCR) NEGATIVE 01/16/24 19:24 MCV MCH MCHC RDW Plt Count MPV Immature Gran % (Auto) Neut % (Auto) Lymph % (Auto) [place] % (Auto) Eos % (Auto) Baso % (Auto) Lymph # (Auto) [place] # (Auto) Eos # (Auto) Baso # (Auto) Abs Immat Gran (auto) Absolute Neuts (auto) Absolute Nucleated RBC Nucleated RBC % (auto) ESR Anion Gap Estim Creat Clear Calc Estimated GFR Random Glucose Lactic Acid Lactic Acid F/U @ 2Hr 0.9 Calcium Magnesium Total Bilirubin AST ALT Alkaline Phosphatase C-Reactive Protein Total Protein Albumin Urine Color Urine Appearance Urine pH Ur Specific [place] Urine Protein Urine Glucose (UA) Urine Ketones Urine Blood Urine Nitrite Ur Leukocyte Esterase Urine RBC Urine WBC Ur Squamous Epith Cells Urine Bacteria Hyaline Casts Influenza Type A (PCR) Influenza Type B (PCR) RSV RNA Qual (PCR) SARS-CoV-2 RNA (RT-PCR) Imaging Radiologist's Impressions: Impressions Foot X-Ray 01/16/24 15:49 IMPRESSION: No plain film evidence of osteomyelitis. Status post amputation of the right second digit. Associated surgical skin bart, soft tissue swelling, and minimal subcutaneous air in this region. Assessment and Plan (1) Cellulitis: Qualifiers: Laterality: right Site of cellulitis: extremity Site of cellulitis of extremity: lower extremity Qualified Code(s): L03.115 - Cellulitis of right lower limb Status: Acute Plan This is a 73-year-old male with pertinent history of peripheral vascular disease status post right 2nd toe amputation, non insulin-dependent diabetes mellitus, essential hypertension, mixed hyperlipidemia, history of CVA who presents to the emergency department for concerns of right foot infection. #. Purulent cellulitis and diabetic foot infection of right foot: Underwent amputation of right 2nd toe on 01/09/[address] Simpson. Concerns of purulent drainage from the wound site. Will admit patient with empiric IV antibiotics. No sepsis. Consulting vascular surgery, appreciate assistance #. Jqe-[id number] type 2 diabetes mellitus with hyperglycemia: Initiating Accu-Cheks with sliding scale insulin #. Essential hypertension: Continue home antihypertensives #. Acute lactic acidosis due to metformin use. No sepsis #. History of CVA: On aspirin and statin #. Normocytic anemia: Hemoglobin above transfusion threshold Med rec pending DVT prophylaxis: Lovenox Full code Admit as inpatient and will require two night minimum hospital stay for IV antibiotics (as above), which is not possible in a lesser acute setting. Specialist consult pending Quality Stroke Does the patient have a stroke diagnosis?: No VTE Prior VTE?: No VTE Risk Level:: Medical - moderate - high VTE Device Contraindication: Treatment Not Indicated VTE Drug Contraindication: N/A - Med Ordered
--- NOTE | 2024-01-16 21:03 | PHA.PROG ---
Admission Date/Time: Indication: Cellulitis Weight in k.6 kg Adjusted body weight in K.62 kg [place] body weight in K.3 kg Obesity Dosing Indication % IBW: 103% Serum Creatinine - Last 168 Hours 01/16/24 17:06 Creatinine 1.02 Estimated CrCl and GFR - Last 168 Hours 01/16/24 17:06 Estim Creat Clear Calc 66.6 Estimated GFR > 60 Vancomycin Loading Dose: 2000 mg Current Vancomycin Dosing Regimen: 1500 mg Q24H Date and Time for next Vancomycin Level to be drawn: 01/18 @ 1799 Pharmacist Comments on Vancomycin Plan: Patient received an adequate load in the ER on 01/15 @ 2045 Maintenance dose vanco 1500 mg Q24h is scheduled to start 01/16 @ 1999. Prediected AUC 478 with a trough of 41.1 Level will be drawn prior to 4th dose pharmacy will monitor renal function daily Tanika Mandujano, Ariel Vancomycin dosing will take advantage of [employer] as a clinical decision support tool that uses Bayesian modeling to calculate individual patient's pharmacokinetic parameters and forecast the patient's drug concentration time course with the target goal AUC 24 range of 400 - 600 mg/L/hr.
[2024-01-16] MEDS: Enoxaparin Sodium 40 MG/0.4 ML SYRINGE SUBCUT (21:30)
--- NOTE | 2024-01-16 21:39 | PHA.MEDREC ---
Pharmacy Consult ? Medication Reconciliation Pharmacy has completed the medication reconciliation. Patient's reported medications. Tanika Mandujano, BethanyD
[2024-01-16 22:50] VITALS: BP 135/69; PULSE 98; RESP 15; O2SAT 97
[2024-01-17] MEDS: Piperacillin Sodium/Tazobactam 4.5 GM in 0.9 % Sodium Chloride 100 ML IV ×4 (01:40→18:21)
[2024-01-17] MEDS: Morphine Sulfate 4 MG/ML CARTRIDGE IVPUSH ×4 (01:40→20:58)
[2024-01-17 05:52] VITALS: BP 144/71; PULSE 94; RESP 15; TEMP 37.5; O2SAT 97
[2024-01-17 06:07] LABS: MANUAL DIFF FLAG NO
[2024-01-17 06:10] LABS: Basophils Percent Auto 0.2 % (0-2); Eosinophils Absolute Auto 0.1 X10*3/uL (0.0-0.4); Eosinophils Percent Auto 1.1 % (0-4); Hematocrit 30.4 % (42.0-52.0); Hemoglobin 9.8 g/dl (14.0-18.0); Imm Gran Abs Auto 0.04 X10*3/uL (0.00-0.03); Imm Gran Pct Auto 0.5 % (0.0-0.4); Lymphocytes Absolute Auto 1.5 X10*3/uL (1.2-4.9); Lymphocytes Percent Auto 16.6 % (20-40); Mean Corpuscular HGB Conc 32.2 g/dl (31.0-36.0); Mean Corpuscular Hemoglobin 28.7 pg (27.0-33.0); Mean Corpuscular Volume 89.1 fL (80.0-98.0); Mean Platelet Volume 9.3 fL (9.4-12.4); Monocytes Absolute Auto 0.7 X10*3/uL (0.1-1.2); Monocytes Percent Auto 7.5 % (2-11); Neutrophils Absolute Auto 6.5 x10*3/uL (2.0-8.3); Neutrophils Percent Auto 74.1 % (45-73); Platelet Count 414 X10*3/uL (160-400); Red Blood Count 3.41 X10*6/uL (4.60-5.80); Red Cell Distribution Width 11.9 % (11.0-16.0); White Blood Count 8.8 X10*3/uL (4.8-10.8)
[2024-01-17 06:31] LABS: Anion Gap 14 (12-20); Blood Urea Nitrogen 10 mg/dL (9-16); Calcium 9.3 mg/dL (8.4-10.2); Carbon Dioxide 25 mmol/L (22-29); Chloride 100 mmol/L (96-108); Estimated Glomerular Filt Rate > 60; Glucose Random 177 mg/dL (60-115); Potassium 4.1 mmol/L (3.3-5.1); Sodium 135 mmol/L (135-145)
[2024-01-17 07:33] VITALS: BP 161/71; PULSE 95; RESP 18; TEMP 36.9; O2SAT 97
[2024-01-17 07:40] LABS: Glucose, Whole Blood 170 mg/dL (60-115)
[2024-01-17] MEDS: 0.9 % Sodium Chloride Flush 3 ML SYRINGE IVFLUSH ×3 (08:16→19:09)
--- NOTE | 2024-01-17 08:16 | HE.PHANOTE ---
Re: Susan Patient's renal function is improving, continue regimen at 1500 q12h.
--- NOTE | 2024-01-17 08:25 | PC.NURSE ---
alert and oriented, respirations even and unlabored. patient stating 10/10 pain in right foot. medicated with prn morphine. antibiotics infusing at this time, call leyva within reach
[2024-01-17 09:37] VITALS: BP 127/74; PULSE 97; RESP 18; TEMP 37; O2SAT 99
--- NOTE | 2024-01-17 09:50 | MHC.CM.PN ---
IMM delivered. Patient lives at home w/ Irina. Functionally independent. Has a walker, but does not use it. No services. PCP Vikash MONROY HCP on file and verified DP: Home self care vs home w/ services/IV abx. Prefers [facility] if services are needed. to transport. CM will continue to follow.
[2024-01-17 11:38] LABS: Glucose, Whole Blood 220 mg/dL (60-115)
[2024-01-17] MEDS: Insulin Lispro 100 UNIT/ML 3 ML VIAL SUBCUT ×3 (12:01→19:20)
--- NOTE | 2024-01-17 14:49 | P.PNIM_ITS ---
Subjective Subjective Date of Service: 01/17/24 Review of Systems Follow up foot infection no pain, no fever Physical Exam 2 Vital Signs: Vital Signs: Last Vital Signs Temp 98.6 F 01/17/24 09:37 Pulse 97 01/17/24 09:37 Resp 18 01/17/24 09:37 BP 127/74 01/17/24 09:37 Pulse Ox 99 01/17/24 09:37 O2 Del Method Room Air 01/17/24 09:37 BMI result Body Mass Index 24.2 Appearing in no acute distress lung sounds are clear to auscultation heart regular rate rhythm, clear S1, S2 positive bowel sounds, abdomen is soft, nontender neuro patient is alert x3, no focal deficits Objective Data Active Medications Acetaminophen (Acetaminophen 325 Mg Tablet) 650 mg PO Q6H PRN PRN Reason: Pain, Mild (Pain Scale 1-3) Enoxaparin Sodium (Enoxaparin Sodium 40 Mg/0.4 Ml Syringe) 40 mg SUBCUT Q24H [facility] [place] Last Admin: 01/16/24 21:30 Dose: 40 mg Documented By: FAY Glucose (Glucose Gel 15 Gm Gel..Gram.) 15 gm PO Q15M PRN; Protocol PRN Reason: per Hypoglycemia Standing Ord. Piperacillin Sod/Tazobactam (Sod 4.5 gm/ Sodium Chloride) 100 mls @ 200 mls/hr IV Q6H [facility] Last Infusion: 01/17/24 13:39 Dose: Infused Documented By: ANNA Vancomycin HCl 1,500 mg/ (Sodium Chloride) 500 mls @ 333.333 mls/hr IV Q24H [facility] Dextrose (D10) 250 mls @ 750 mls/hr IV Q15M PRN; Protocol PRN Reason: per Hypoglycemia Standing Ord. Insulin Human Lispro (Insulin Lispro 100 Unit/Ml 3 Ml Vial) 0 unit SUBCUT QIDACHS [facility] [place]; Protocol Last Admin: 01/17/24 12:01 Dose: 4 unit Documented By: ANNA Melatonin (Melatonin 3 Mg Tablet) 6 mg PO BEDTIME PRN PRN Reason: Insomnia Morphine Sulfate (Morphine Sulfate 4 Mg/Ml Cartridge) 4 mg IVPUSH Q6H PRN; Protocol PRN Reason: Pain, Severe (Pain Scale 7-10) Last Admin: 01/17/24 08:16 Dose: 4 mg Documented By: CLARISSE Ondansetron HCl (Ondansetron Hcl 4 Mg/2 Ml Vial) 4 mg IVPUSH Q8H PRN PRN Reason: Nausea and Vomiting Pharmacy Consult (Consult Rx Vancomycin Dosing) 1 each MISCELLANE DAILY PRN PRN Reason: Consult order Sodium Chloride (0.9 % Sodium Chloride Flush 3 Ml Syringe) [facility] Last Admin: 01/17/24 08:16 Dose: 3 ml Documented By: CLARISSE Labs 01/17/24 05:12 01/17/24 05:13 Labs: Laboratory Results - last 24 hr 01/16/24 01/16/24 01/16/24 16:59 17:06 18:51 MCV 89.8 MCH 29.3 MCHC 32.6 RDW 12.0 Plt Count 417 H D MPV 9.3 L Immature Gran % (Auto) 0.6 H Neut % (Auto) 81.4 H Lymph % (Auto) 12.2 L Greer % (Auto) 5.3 Eos % (Auto) 0.4 Baso % (Auto) 0.1 Lymph # (Auto) 1.3 Greer # (Auto) 0.6 Eos # (Auto) 0.0 Baso # (Auto) 0.0 Abs Immat Gran (auto) 0.06 H Absolute Neuts (auto) 8.4 H Absolute Nucleated RBC 0.000 Nucleated RBC % (auto) 0.0 ESR 97 H Anion Gap 18 Estim Creat Clear Calc 66.6 Estimated GFR > 60 POC Glucose Random Glucose 283 H Lactic Acid 2.3 H* Lactic Acid F/U @ 2Hr Calcium 9.9 Magnesium 1.7 Total Bilirubin 0.3 AST 34 ALT 37 Alkaline Phosphatase 107 C-Reactive Protein 31.09 H Total Protein 8.9 H Albumin 3.8 Urine Color Yellow Urine Appearance Clear Urine pH 6.0 Ur Specific [place] 1.020 Urine Protein 30 (1+) H Urine Glucose (UA) 100 H Urine Ketones Trace Urine Blood Negative Urine Nitrite Negative Ur Leukocyte Esterase Negative Urine RBC 0-2 Urine WBC 0-5 Ur Squamous Epith Cells 0-2 Urine Bacteria None Seen Hyaline Casts 0-2 Influenza Type A (PCR) NEGATIVE Influenza Type B (PCR) NEGATIVE RSV RNA Qual (PCR) NEGATIVE SARS-CoV-2 RNA (RT-PCR) NEGATIVE 01/16/24 01/17/2401/16/24 19:24 05:12 05:13 MCV 89.1 MCH 28.7 MCHC 32.2 RDW 11.9 Plt Count 414 H MPV 9.3 L Immature Gran % (Auto) 0.5 H Neut % (Auto) 74.1 H Lymph % (Auto) 16.6 L Greer % (Auto) 7.5 Eos % (Auto) 1.1 Baso % (Auto) 0.2 Lymph # (Auto) 1.5 Greer # (Auto) 0.7 Eos # (Auto) 0.1 Baso # (Auto) 0.0 Abs Immat Gran (auto) 0.04 H Absolute Neuts (auto) 6.5 Absolute Nucleated RBC 0.000 Nucleated RBC % (auto) 0.0 ESR Anion Gap 14 Estim Creat Clear Calc 86.0 Estimated GFR > 60 POC Glucose Random Glucose 177 H Lactic Acid Lactic Acid F/U @ 2Hr 0.9 Calcium 9.3 D Magnesium Total Bilirubin AST ALT Alkaline Phosphatase C-Reactive Protein Total Protein Albumin Urine Color Urine Appearance Urine pH Ur Specific [place] Urine Protein Urine Glucose (UA) Urine Ketones Urine Blood Urine Nitrite Ur Leukocyte Esterase Urine RBC Urine WBC Ur Squamous Epith Cells Urine Bacteria Hyaline Casts Influenza Type A (PCR) Influenza Type B (PCR) RSV RNA Qual (PCR) SARS-CoV-2 RNA (RT-PCR) 01/17/24 01/17/24 07:36 11:34 MCV MCH MCHC RDW Plt Count MPV Immature Gran % (Auto) Neut % (Auto) Lymph % (Auto) Greer % (Auto) Eos % (Auto) Baso % (Auto) Lymph # (Auto) Greer # (Auto) Eos # (Auto) Baso # (Auto) Abs Immat Gran (auto) Absolute Neuts (auto) Absolute Nucleated RBC Nucleated RBC % (auto) ESR Anion Gap Estim Creat Clear Calc Estimated GFR POC Glucose 170 H 220 H Random Glucose Lactic Acid Lactic Acid F/U @ 2Hr Calcium Magnesium Total Bilirubin AST ALT Alkaline Phosphatase C-Reactive Protein Total Protein Albumin Urine Color Urine Appearance Urine pH Ur Specific [place] Urine Protein Urine Glucose (UA) Urine Ketones Urine Blood Urine Nitrite Ur Leukocyte Esterase Urine RBC Urine WBC Ur Squamous Epith Cells Urine Bacteria Hyaline Casts Influenza Type A (PCR) Influenza Type B (PCR) RSV RNA Qual (PCR) SARS-CoV-2 RNA (RT-PCR) Assessment and Plan (1) Cellulitis: Status: Acute Plan This is a 73-year-old male with pertinent history of peripheral vascular disease status post right 2nd toe amputation, non insulin-dependent diabetes mellitus, essential hypertension, mixed hyperlipidemia, history of CVA who presents to the emergency department for concerns of right foot infection. Purulent cellulitis and diabetic foot infection of right foot Underwent amputation of right 2nd toe on 01/09/[address] Simpson. Concerns of purulent drainage from the wound site. empiric IV antibiotics. No sepsis. Consulting vascular surgery Duplex study showing no significant stenosis or occlusion Yxj-kzrnjon-mwqdhjiey type 2 diabetes mellitus with hyperglycemia ss, ada diet Essential hypertension Continue home antihypertensives Acute lactic acidosis due to metformin use. No sepsis History of CVA On aspirin and statin Normocytic anemia Hemoglobin above transfusion threshold DVT prophylaxis: [facility] Attending Dr. García Full code continue hospital stay for IV antibiotics (as above), which is not possible in a lesser acute setting. Specialist consult pending Quality Stroke Does the patient have a stroke diagnosis?: No VTE Prior VTE?: No VTE Risk Level:: Medical - moderate - high VTE Device Contraindication: Treatment Not Indicated VTE Drug Contraindication: N/A - Med Ordered
[2024-01-17 16:13] VITALS: BP 164/78; PULSE 100; RESP 18; TEMP 36.7; O2SAT 98
[2024-01-17 16:22] LABS: Glucose, Whole Blood 206 mg/dL (60-115)
[2024-01-17] MEDS: vancomycin HCL 1,500 MG in 0.9 % Sodium Chloride 500 ML 333.33 MG IV (19:10)
[2024-01-17 19:12] VITALS: BP 154/76; PULSE 106; RESP 18; TEMP 36.8; O2SAT 98
[2024-01-17] MEDS: Atorvastatin Calcium 20 MG TABLET PO (19:14)
[2024-01-17] MEDS: Enoxaparin Sodium 40 MG/0.4 ML SYRINGE SUBCUT (19:14)
[2024-01-17] MEDS: metFORMIN HCl 1,000 MG TABLET 1000 MG PO (19:14)
[2024-01-17] MEDS: Acetaminophen 325 MG TABLET 650 MG PO (19:19)
[2024-01-17 19:37] LABS: Glucose, Whole Blood 161 mg/dL (60-115)
[2024-01-18] MEDS: Piperacillin Sodium/Tazobactam 4.5 GM in 0.9 % Sodium Chloride 100 ML IV ×4 (00:02→18:34)
[2024-01-18 04:00] VITALS: BP 140/73; PULSE 100; RESP 16; TEMP 36.1; O2SAT 97
[2024-01-18 07:22] LABS: Glucose, Whole Blood 193 mg/dL (60-115)
[2024-01-18 07:23] LABS: Creatinine Clr Calc Pharmacy 88.2; Estimated Glomerular Filt Rate > 60
[2024-01-18] MEDS: amLODIPine Besylate 10 MG TABLET PO (07:49)
[2024-01-18] MEDS: Aspirin Enteric Coated 81 MG TABLET.DR PO (07:49)
[2024-01-18] MEDS: metFORMIN HCl 1,000 MG TABLET 1000 MG PO (07:49)
[2024-01-18] MEDS: lisinopriL 10 MG TABLET PO (07:50)
[2024-01-18] MEDS: 0.9 % Sodium Chloride Flush 3 ML SYRINGE IVFLUSH ×3 (07:50→19:46)
[2024-01-18] MEDS: Insulin Lispro 100 UNIT/ML 3 ML VIAL SUBCUT ×4 (07:51→20:50)
--- NOTE | 2024-01-18 07:52 | P.PNIM_ITS ---
Subjective Subjective Date of Service: 01/18/24 Review of Systems Follow up foot infection no pain, no fever Physical Exam 2 Vital Signs: Vital Signs: Last Vital Signs Temp 96.9 F 01/18/24 04:00 Pulse 100 01/18/24 04:00 Resp 16 01/18/24 04:00 BP 140/73 H 01/18/24 04:00 Pulse Ox 97 01/18/24 04:00 O2 Del Method Room Air 01/18/24 04:00 BMI result Body Mass Index 24.2 Appearing in no acute distress lung sounds are clear to auscultation heart regular rate rhythm, clear S1, S2 positive bowel sounds, abdomen is soft, nontender neuro patient is alert x3, no focal deficits Objective Data Active Medications Acetaminophen (Acetaminophen 325 Mg Tablet) 650 mg PO Q6H PRN PRN Reason: Pain, Mild (Pain Scale 1-3) Last Admin: 01/17/24 19:19 Dose: 650 mg Documented By: SAMI Amlodipine Besylate (Amlodipine Besylate 10 Mg Tablet) 10 mg PO DAILY [facility]; Protocol Last Admin: 01/18/24 07:49 Dose: 10 mg Documented By: MARILYN Aspirin (Aspirin Enteric Coated 81 Mg Tablet.) 81 mg PO DAILY [facility] Last Admin: 01/18/24 07:49 Dose: 81 mg Documented By: MARILYN Atorvastatin Calcium (Atorvastatin Calcium 20 Mg Tablet) 20 mg PO BEDTIME [facility] Last Admin: 01/17/24 19:14 Dose: 20 mg Documented By: SAMI Enoxaparin Sodium (Enoxaparin Sodium 40 Mg/0.4 Ml Syringe) 40 mg SUBCUT Q24H [facility] Last Admin: 01/17/24 19:14 Dose: 40 mg Documented By: SAMI Glucose (Glucose Gel 15 Gm Gel..Gram.) 15 gm PO Q15M PRN; Protocol PRN Reason: per Hypoglycemia Standing Ord. Piperacillin Sod/Tazobactam (Sod 4.5 gm/ Sodium Chloride) 100 mls @ 200 mls/hr IV Q6H [facility] Last Infusion: 01/18/24 06:31 Dose: Infused Documented By: SAMI Vancomycin HCl 1,500 mg/ (Sodium Chloride) 500 mls @ 333.333 mls/hr IV Q24H [facility] Last Infusion: 01/17/24 20:54 Dose: Infused Documented By: SAMI Dextrose (D10) 250 mls @ 750 mls/hr IV Q15M PRN; Protocol PRN Reason: per Hypoglycemia Standing Ord. Insulin Human Lispro (Insulin Lispro 100 Unit/Ml 3 Ml Vial) 0 unit SUBCUT QIDACHS [facility]; Protocol Last Admin: 01/18/24 07:51 Dose: 2 unit Documented By: MARILYN Lisinopril (Lisinopril 10 Mg Tablet) 10 mg PO DAILY [facility]; Protocol Last Admin: 01/18/24 07:50 Dose: 10 mg Documented By: MARILYN Melatonin (Melatonin 3 Mg Tablet) 6 mg PO BEDTIME PRN PRN Reason: Insomnia Metformin HCl (Metformin Hcl 1,000 Mg Tablet) 1,000 mg PO BID [facility] Last Admin: 01/18/24 07:49 Dose: 1,000 mg Documented By: MARILYN Morphine Sulfate (Morphine Sulfate 4 Mg/Ml Cartridge) 4 mg IVPUSH Q6H PRN; Protocol PRN Reason: Pain, Severe (Pain Scale 7-10) Last Admin: 01/17/24 20:58 Dose: 4 mg Documented By: SAMI Comments: Dr. Wong OK'd to give early. Ondansetron HCl (Ondansetron Hcl 4 Mg/2 Ml Vial) 4 mg IVPUSH Q8H PRN PRN Reason: Nausea and Vomiting Pharmacy Consult (Consult Rx Vancomycin Dosing) 1 each MISCELLANE DAILY PRN PRN Reason: Consult order Sodium Chloride (0.9 % Sodium Chloride Flush 3 Ml Syringe) 3 ml IVFLUSH QSHIFT [facility] Last Admin: 01/18/24 07:50 Dose: 3 ml Documented By: MARILYN Labs 01/17/24 05:12 01/18/24 05:58 Labs: Laboratory Results - last 24 hr 01/17/24 01/17/24 01/17/24 11:34 16:12 19:16 Hold Purple Top Estim Creat Clear Calc Estimated GFR POC Glucose 220 H 206 H 161 H 01/18/24 01/18/24 05:58 07:17 Hold Purple Top SEE NOTE Estim Creat Clear Calc 88.2 Estimated GFR > 60 POC Glucose 193 H Microbiology Microbiology Results: Microbiology 01/16/24 18:29 Blood Culture - Preliminary Blood - Venous No growth after 24 hours. 01/16/24 17:06 Blood Culture - Preliminary Blood - Venous No growth after 24 hours. Assessment and Plan (1) Cellulitis: Status: Acute Plan This is a 73-year-old male with pertinent history of peripheral vascular disease status post right 2nd toe amputation, non insulin-dependent diabetes mellitus, essential hypertension, mixed hyperlipidemia, history of CVA who presents to the emergency department for concerns of right foot infection. Purulent cellulitis and diabetic foot infection of right foot Underwent amputation of right 2nd toe on 01/09/[address] Simpson. purulent drainage from the wound site. continue vanco and zosyn Duplex study showing no significant stenosis or occlusion Consulting vascular surgery> plan for TMA on tuesday Npn-jqjfozc-fewwtkuef type 2 diabetes mellitus with hyperglycemia ss, ada diet hold metformin Essential hypertension Continue home antihypertensives Acute lactic acidosis due to metformin use. No sepsis History of CVA On aspirin and statin Normocytic anemia Hemoglobin above transfusion threshold DVT prophylaxis: [place] Attending Dr. García Full code continue hospital stay for IV antibiotics (as above), which is not possible in a lesser acute setting. Specialist consult pending Quality Stroke Does the patient have a stroke diagnosis?: No VTE Prior VTE?: No VTE Risk Level:: Medical - moderate - high VTE Device Contraindication: Treatment Not Indicated VTE Drug Contraindication: N/A - Med Ordered
[2024-01-18 07:59] VITALS: BP 124/79; PULSE 105; RESP 14; TEMP 36.6; O2SAT 96
[2024-01-18] MEDS: Morphine Sulfate 4 MG/ML CARTRIDGE IVPUSH ×2 (09:35→20:50)
[2024-01-18 11:28] LABS: Glucose, Whole Blood 253 mg/dL (60-115)
--- NOTE | 2024-01-18 11:50 | MHC.CM.PN ---
EMR REVIEWED. PER MD ROUNDS PATIENT IS NOT MEDICALLY CLEARED FOR DC. CM WILL CONTINUE TO FOLLOW FOR DC NEEDS.
--- NOTE | 2024-01-18 12:22 | HO.VASCPN ---
Subjective Subjective Date of Service: 01/18/24 Patient reports: no new complaints and feels better Interval history: Patient seen and examined. No significant events overnight. Appears to be doing relatively well pain well controlled. Still reports drainage from the toe amp site. He is now for follow-up with at bedside. Physical Exam Vital Signs: Vital Signs: Last Vital Signs Temp 97.8 F 01/18/24 07:59 Pulse 105 H 01/18/24 07:59 Resp 14 01/18/24 07:59 BP 124/79 01/18/24 07:59 Pulse Ox 96 01/18/24 07:59 O2 Del Method Room Air 01/18/24 07:59 BMI result Body Mass Index 24.2 Const: General: cooperative, healthy appearing and no acute distress Orientation/consciousness: oriented to person, oriented to place and oriented to time HEENT: Head: Yes normal to inspection Neck: Carotids: no bruits Chest: Chest palpation & inspection: normal inspection of the chest Resp: Effort & Inspection: normal respiratory effort and able to speak in complete sentences Auscultation: clear to auscultation bilaterally Cardio: Rate: regular rate Heart sounds: S1 normal heart sound present and S2 normal heart sound present GI: Inspection: Yes normal to inspection Skin: Other: Right toe amp site gangrenous other toes appear to be dusky General skin exam: no rashes or lesions noted Wounds: no wounds Neuro: General: oriented to person, oriented to place, oriented to time and CN's II-XI intact bilaterally Extrem: General: Yes normal to inspection, Yes full ROM and Yes no clubbing, cyanosis or edema Psych: Appearance: grossly normal and well kempt Speech and movement: Normal speech and movement present Affect: normal affect Progress Note: A&P Assessment and plan (1) PAD (peripheral artery disease): Status: Acute Assessment and Plan: In short patient has nonhealing toe amp site along with ischemia of the rest of his toes. The patient will require right transmetatarsal amputation. Risks benefits complications of the operation were discussed in detail with the patient. He agreed and consented. Will plan for operation this Tuesday. Thank you for allowing us to assist in his care. If there are any questions or concerns please do not hesitate to contact us. Time Spent With Patient Time: Total time managing care of this patient today ____ minutes. Procedures Date of Service Date of Service: 01/18/24 Quality Stroke Does the patient have a stroke diagnosis?: No VTE Prior VTE?: No VTE Risk Level:: Medical - moderate - high VTE Device Contraindication: Treatment Not Indicated VTE Drug Contraindication: N/A - Med Ordered
[2024-01-18 15:17] VITALS: BP 148/70; PULSE 96; RESP 16; TEMP 37.1; O2SAT 97
--- NOTE | 2024-01-18 15:32 | P.CDIM_ITS ---
PROVIDER RESPONSE TEXT: To clarify, the appropriate diagnosis supported by the clinical indicators: Cellulitis due to/associated with diabetic foot infection: probable QUERY TEXT: PHYSICIAN'S DOCUMENTATION REQUEST Date of Query: 01/18/2024 08:58 AM EDT Patient Name: Rivera Hernandez Admit Date: 01/17/2024 Dear Radha Jones, A review of the medical record indicates additional documentation may be needed. Please review below and update the documentation accordingly. Clinical Indicators: Purulent cellulitis and diabetic foot infection of right foot Non-insulin dependent type 2 diabetes mellitus with hyperglycemia Cellulitis due to/associated with diabetic foot infection possible, probable, suspected etc. Cellulitis is not due to/associated with the diabetes mellitus type 2 Other (explain) Clinically unable to determine (explain) Thank you, Siri Dacosta, CCS, CDIS Use of terms such as suspected, likely, concern for, or probable (associated with a specific diagnosi s that is being evaluated, monitored, or treated as if it exists) are acceptable and can be coded in the inpatient se tting, when documented at the time of discharge. Please use your independent medical judgment in providing your response. THIS QUERY IS PART OF THE PERMANENT MEDICAL RECORD
[2024-01-18 16:29] LABS: Glucose, Whole Blood 243 mg/dL (60-115)
[2024-01-18 19:09] VITALS: BP 124/62; PULSE 94; RESP 15; TEMP 36.9; O2SAT 94
[2024-01-18] MEDS: Enoxaparin Sodium 40 MG/0.4 ML SYRINGE SUBCUT (19:41)
[2024-01-18] MEDS: Atorvastatin Calcium 20 MG TABLET PO (19:42)
[2024-01-18] MEDS: vancomycin HCL 1,500 MG in 0.9 % Sodium Chloride 500 ML 333.33 MG IV (19:43)
[2024-01-18 20:21] LABS: Glucose, Whole Blood 177 mg/dL (60-115)
[2024-01-19] MEDS: Piperacillin Sodium/Tazobactam 4.5 GM in 0.9 % Sodium Chloride 100 ML IV ×4 (00:04→19:28)
[2024-01-19 04:00] VITALS: BP 135/95; PULSE 100; RESP 16; TEMP 36.1; O2SAT 96
[2024-01-19] MEDS: Morphine Sulfate 4 MG/ML CARTRIDGE IVPUSH ×3 (04:56→18:26)
[2024-01-19 06:35] LABS: Creatinine Clr Calc Pharmacy 91.8; Estimated Glomerular Filt Rate > 60
[2024-01-19] MEDS: 0.9 % Sodium Chloride Flush 3 ML SYRINGE IVFLUSH ×2 (07:09→15:15)
[2024-01-19 07:28] LABS: Glucose, Whole Blood 136 mg/dL (60-115)
[2024-01-19 07:39] VITALS: BP 146/72; PULSE 108; RESP 14; TEMP 36.2; O2SAT 96
[2024-01-19] MEDS: lisinopriL 10 MG TABLET PO (08:23)
[2024-01-19] MEDS: Aspirin Enteric Coated 81 MG TABLET.DR PO (08:23)
[2024-01-19] MEDS: amLODIPine Besylate 10 MG TABLET PO (08:24)
--- NOTE | 2024-01-19 10:15 | PC.NURSE ---
Right foot dry sterile dressing changed with surgical PORFIRIO Stephens (photos taken by PORFIRIO). Incision line with clips, great and third toes purple in color. Wound noted to have a foul odor. Planned for surgery in the am. Pt tolerated the dressing change well. present at bedside.
[2024-01-19 11:07] LABS: Glucose, Whole Blood 324 mg/dL (60-115)
[2024-01-19] MEDS: Insulin Lispro 100 UNIT/ML 3 ML VIAL SUBCUT ×3 (11:27→20:58)
--- NOTE | 2024-01-19 15:14 | HO.PM.IMPN ---
Subjective Subjective Date of Service: 01/19/24 Interval History: Seen and examined this morning Follow-up for nonhealing foot wound No overnight events, no fever, chills. Pain under adequate control Review of Systems Review of Systems: Yes all other systems are reviewed and are negative Constitutional Constitutional: Denies chills and Denies fever(s) Physical Exam Vital Signs: Vital Signs: Last Vital Signs Temp 97.2 F 01/19/24 07:39 Pulse 108 H 01/19/24 07:39 Resp 14 01/19/24 07:39 BP 146/72 H 01/19/24 07:39 Pulse Ox 96 01/19/24 07:39 O2 Del Method Room Air 01/19/24 07:39 BMI result Body Mass Index 24.2 Const: General: cooperative, comfortable, alert and awake Nutritional Appearance: average body habitus Orientation/consciousness: patient oriented x3 Resp: Effort & Inspection: normal respiratory effort, able to speak in complete sentences, no respiratory distress and no use of accessory muscles Cardio: Rate: regular rate GI: Inspection: No distended Palpation (GI): Soft to palpation and nontender Skin: Other: right foot Neuro: General: patient oriented x3, moves all extremities and CN's II-XI intact bilaterally Objective Data Active Medications Acetaminophen (Acetaminophen 325 Mg Tablet) 650 mg PO Q6H PRN PRN Reason: Pain, Mild (Pain Scale 1-3) Last Admin: 01/17/24 19:19 Dose: 650 mg Documented By: SAMI Amlodipine Besylate (Amlodipine Besylate 10 Mg Tablet) 10 mg PO DAILY [facility]; Protocol Last Admin: 01/19/24 08:24 Dose: 10 mg Documented By: MARILYN Aspirin (Aspirin Enteric Coated 81 Mg Tablet.) 81 mg PO DAILY [facility] Last Admin: 01/19/24 08:23 Dose: 81 mg Documented By: MARILYN Atorvastatin Calcium (Atorvastatin Calcium 20 Mg Tablet) 20 mg PO BEDTIME [facility] Last Admin: 01/18/24 19:42 Dose: 20 mg Documented By: SAMI Enoxaparin Sodium (Enoxaparin Sodium 40 Mg/0.4 Ml Syringe) 40 mg SUBCUT Q24H [facility] Last Admin: 01/18/24 19:41 Dose: 40 mg Documented By: SAMI Glucose (Glucose Gel 15 Gm Gel..Gram.) 15 gm PO Q15M PRN; Protocol PRN Reason: per Hypoglycemia Standing Ord. Piperacillin Sod/Tazobactam (Sod 4.5 gm/ Sodium Chloride) 100 mls @ 200 mls/hr IV Q6H [facility] Last Infusion: 01/19/24 12:42 Dose: Infused Documented By: MARILYN Vancomycin HCl 1,500 mg/ (Sodium Chloride) 500 mls @ 333.333 mls/hr IV Q24H [facility] Last Infusion: 01/18/24 21:14 Dose: Infused Documented By: SAMI Dextrose (D10) 250 mls @ 750 mls/hr IV Q15M PRN; Protocol PRN Reason: per Hypoglycemia Standing Ord. Insulin Human Lispro (Insulin Lispro 100 Unit/Ml 3 Ml Vial) 0 unit SUBCUT QIDACHS [facility]; Protocol Last Admin: 01/19/24 11:27 Dose: 8 unit Documented By: MARILYN Lisinopril (Lisinopril 10 Mg Tablet) 10 mg PO DAILY [facility]; Protocol Last Admin: 01/19/24 08:23 Dose: 10 mg Documented By: MARILYN Melatonin (Melatonin 3 Mg Tablet) 6 mg PO BEDTIME PRN PRN Reason: Insomnia Morphine Sulfate (Morphine Sulfate 4 Mg/Ml Cartridge) 4 mg IVPUSH Q6H PRN; Protocol PRN Reason: Pain, Severe (Pain Scale 7-10) Last Admin: 01/19/24 11:27 Dose: 4 mg Documented By: MARILYN Ondansetron HCl (Ondansetron Hcl 4 Mg/2 Ml Vial) 4 mg IVPUSH Q8H PRN PRN Reason: Nausea and Vomiting Pharmacy Consult (Consult Rx Vancomycin Dosing) 1 each MISCELLANE DAILY PRN PRN Reason: Consult order Sodium Chloride (0.9 % Sodium Chloride Flush 3 Ml Syringe) 3 ml IVFLUSH QSHIFT [facility] Last Admin: 01/19/24 07:09 Dose: 3 ml Documented By: MARILYN Labs 01/17/24 05:12 01/19/24 05:55 Labs: Laboratory Results - last 24 hr 01/18/24 01/18/24 01/19/24 16:22 20:18 05:55 Hold Purple Top SEE NOTE Estim Creat Clear Calc 91.8 Estimated GFR > 60 POC Glucose 243 H 177 H 01/19/24 01/19/24 06:59 11:02 Hold Purple Top Estim Creat Clear Calc Estimated GFR POC Glucose 136 H 324 H Microbiology Microbiology Results: Microbiology 01/16/24 18:29 Blood Culture - Preliminary Blood - Venous No growth after 48 hours. 01/16/24 17:06 Blood Culture - Preliminary Blood - Venous No growth after 48 hours. Assessment and Plan (1) PAD (peripheral artery disease): Status: Acute Plan This is a 73-year-old male with pertinent history of peripheral vascular disease status post right 2nd toe amputation, non insulin-dependent diabetes mellitus, essential hypertension, mixed hyperlipidemia, history of CVA who presents to the emergency department for concerns of right foot infection. Purulent cellulitis and diabetic foot infection of right foot Underwent amputation of right 2nd toe on 01/09/[address] Simpson. purulent drainage from the wound site. continue vanco and zosyn Duplex study showing no significant stenosis or occlusion seen by vascular surgery> plan for TMA on tuesday, NPO at midnight [id number] type 2 diabetes mellitus with hyperglycemia ss, ada diet hold metformin Essential hypertension Continue home antihypertensives, norvasc and lisinopril Acute lactic acidosis due to metformin use. No sepsis History of CVA On aspirin and statin Normocytic anemia Hemoglobin above transfusion threshold DVT prophylaxis: [employer] Attending Dr. García Full code continue hospital stay for IV antibiotics (as above), which is not possible in a lesser acute setting. Specialist consult pending Quality Stroke Does the patient have a stroke diagnosis?: No VTE Prior VTE?: No VTE Risk Level:: Medical - moderate - high VTE Device Contraindication: Treatment Not Indicated VTE Drug Contraindication: N/A - Med Ordered
[2024-01-19 15:28] VITALS: BP 133/68; PULSE 99; RESP 22; TEMP 37.1; O2SAT 97
[2024-01-19 16:16] LABS: Glucose, Whole Blood 284 mg/dL (60-115)
--- NOTE | 2024-01-19 18:35 | HE.PHANOTE ---
VANCO Subtherapeutic trough came back at 6.0. Dose increased to 1250mg Q12H. New trough to be drawn 01/19 @1999. Predicted AUC 508, predicted trough 13.8.
[2024-01-19 19:23] VITALS: BP 107/64; PULSE 96; RESP 20; TEMP 37.1; O2SAT 94
[2024-01-19] MEDS: Atorvastatin Calcium 20 MG TABLET PO (19:28)
[2024-01-19] MEDS: Enoxaparin Sodium 40 MG/0.4 ML SYRINGE SUBCUT (19:28)
[2024-01-19 20:09] LABS: Glucose, Whole Blood 278 mg/dL (60-115)
[2024-01-19] MEDS: vancomycin HCL 1,250 MG in 0.9 % Sodium Chloride 250 ML 166.67 MG IV (20:50)
[2024-01-20] VITALS (12 sets, daily range): BP systolic 105–156; BP diastolic 64–87; PULSE 89–108; RESP 14–18; TEMP 36.1–36.9; O2SAT 96–98
[2024-01-20] MEDS: 0.9 % Sodium Chloride Flush 3 ML SYRINGE IVFLUSH ×3 (00:55→19:26)
[2024-01-20] MEDS: Piperacillin Sodium/Tazobactam 4.5 GM in 0.9 % Sodium Chloride 100 ML IV ×3 (00:56→18:21)
[2024-01-20 05:54] LABS: Creatinine Clr Calc Pharmacy 77.2; Estimated Glomerular Filt Rate > 60
[2024-01-20] MEDS: Morphine Sulfate 4 MG/ML CARTRIDGE IVPUSH ×3 (06:02→21:13)
[2024-01-20 07:11] LABS: Glucose, Whole Blood 176 mg/dL (60-115)
[2024-01-20] MEDS: vancomycin HCL 1,250 MG in 0.9 % Sodium Chloride 250 ML 166.66 MG IV (09:03)
[2024-01-20] MEDS: amLODIPine Besylate 10 MG TABLET PO (09:54)
--- NOTE | 2024-01-20 10:54 | HO.ANESPROP2 ---
[facility] Active Problems Active Problems: All Active Problems Cellulitis (Acute) PAD (peripheral artery disease) (Acute) Dry gangrene (Acute) Pre-op evaluation (Acute) COVID-19 (Acute) Atrial arrhythmia (Acute) Aortic valve sclerosis (Acute) Preoperative cardiovascular examination (Acute) Osteoarthritis of left knee (Acute) PAD (peripheral artery disease) (Acute) Hyperkalemia (Acute) Foot callus (Acute) Hyperlipidemia (Acute) Atypical chest pain (Acute) Elevated TSH (Acute) Eustachian tube dysfunction (Acute) Left ear pain (Acute) Allison onychomycosis (Acute) Other and unspecified hyperlipidemia (Acute) Essential hypertension (Acute) Type 2 diabetes mellitus with unspecified complications (Acute) Precordial chest pain (Acute) HTN (hypertension) (Acute) Nausea & vomiting (Acute) Hospital discharge follow-up (Acute) Type 2 diabetes mellitus (Acute) Past Medical History Medical History Other and unspecified hyperlipidemia Essential hypertension Type 2 diabetes mellitus with unspecified complications Allergic rhinitis Stroke Nausea & vomiting Hospital discharge follow-up Atypical chest pain Diabetes Hyperlipidemia HTN (hypertension) Family History Family History Father No problems noted. Mother Myocardial infarction Sister Diabetes Hypertension Family history of problems with anesthesia: No Surgical History Surgical History Hx of colonoscopy History of Problems with Anesthesia: No Social History Social History Household Members: Spouse Housing: House Do you presently have visiting nurse or other home services: No Alcohol intake: current Alcohol intake frequency: holidays/special occasions only Alcohol type: beer Patient Tobacco Use Status: Never used Tobacco Smoked in Last 30 Days: No e-Cigarette/Vaping Use: Never Used Second Hand Smoke Exposure: No Use of substances other than those prescribed or required for medical reasons: No Currently Displaying Signs/Symptoms of Drug Intoxication Withdrawal: No Have you been hit, kicked, punched, or otherwise hurt by someone within the past year? If so, by whom?: No Do you feel safe in your current relationship?: Yes Is there a partner from a previous relationship who is making you feel unsafe now?: No Are you made to feel afraid or neglected: No Are you DNR?: No Advance Directives: Yes Advance Directives on File: Yes Advance Directives Date on File: 12/22/23 Do you have a plan to hurt others: No Plan Recently lost weight without trying: No Nutrition Risks: No Nutritional Risk Poor oral hygiene: No service: No Current occupational status: retired Cognitive needs: No Hearing needs: No Vision needs: No Meds Allergies Allergy/AdvReac Type Severity Reaction Status Date / Time sitagliptin [From JANUVIA] Allergy Unknown vomitting Verified 01/16/24 15:09 dulaglutide [From Trulicity] AdvReac Intermediate Rash Verified 01/16/24 15:09 pioglitazone [From Actos] AdvReac Intermediate palpatation Verified 01/16/24 15:09 s Active Medications: Current Medications Acetaminophen (Acetaminophen 325 Mg Tablet) 650 mg PO Q6H PRN PRN Reason: Pain, Mild (Pain Scale 1-3) Last Admin: 01/17/24 19:19 Dose: 650 mg Amlodipine Besylate (Amlodipine Besylate 10 Mg Tablet) 10 mg PO DAILY [facility]; Protocol Last Admin: 01/20/24 09:54 Dose: 10 mg Aspirin (Aspirin Enteric Coated 81 Mg Tablet.Dr) 81 mg PO DAILY [facility] Last Admin: 01/20/24 09:08 Dose: Not Given Atorvastatin Calcium (Atorvastatin Calcium 20 Mg Tablet) 20 mg PO BEDTIME [facility] Last Admin: 01/19/24 19:28 Dose: 20 mg Enoxaparin Sodium (Enoxaparin Sodium 40 Mg/0.4 Ml Syringe) 40 mg SUBCUT Q24H [facility] Last Admin: 01/19/24 19:28 Dose: 40 mg Glucose (Glucose Gel 15 Gm Gel..Gram.) 15 gm PO Q15M PRN; Protocol PRN Reason: per Hypoglycemia Standing Ord. Piperacillin Sod/Tazobactam (Sod 4.5 gm/ Sodium Chloride) 100 mls @ 200 mls/hr IV Q6H [facility] Last Infusion: 01/20/24 06:51 Dose: Infused Dextrose (D10) 250 mls @ 750 mls/hr IV Q15M PRN; Protocol PRN Reason: per Hypoglycemia Standing Ord. Vancomycin HCl 1,250 mg/ (Sodium Chloride) 250 mls @ 166.667 mls/hr IV Q12H [facility] Last Infusion: 01/20/24 10:40 Dose: Infused Insulin Human Lispro (Insulin Lispro 100 Unit/Ml 3 Ml Vial) 0 unit SUBCUT QIDACHS [facility]; Protocol Last Admin: 01/20/24 08:03 Dose: Not Given Lisinopril (Lisinopril 10 Mg Tablet) 10 mg PO DAILY [facility]; Protocol Last Admin: 01/20/24 09:55 Dose: Not Given Melatonin (Melatonin 3 Mg Tablet) 6 mg PO BEDTIME PRN PRN Reason: Insomnia Morphine Sulfate (Morphine Sulfate 4 Mg/Ml Cartridge) 4 mg IVPUSH Q6H PRN; Protocol PRN Reason: Pain, Severe (Pain Scale 7-10) Last Admin: 01/20/24 06:02 Dose: 4 mg Ondansetron HCl (Ondansetron Hcl 4 Mg/2 Ml Vial) 4 mg IVPUSH Q8H PRN PRN Reason: Nausea and Vomiting Pharmacy Consult (Consult Rx Vancomycin Dosing) 1 each MISCELLANE DAILY PRN PRN Reason: Consult order Sodium Chloride (0.9 % Sodium Chloride Flush 3 Ml Syringe) 3 ml IVFLUSH [facility] Last Admin: 01/20/24 09:03 Dose: 3 ml Home Medications ?Medication ?Instructions ?Recorded ?Confirmed ?Last Taken ?Type simvastatin 40 mg tablet 40 mg PO BEDTIME 12/19/23 01/16/24 01/15/24 History acetaminophen 500 mg tablet 500 mg PO Q6H PRN Pain 01/16/24 01/16/24 Unknown History (Tylenol Extra Strength) Exam Height,Weight and Vital Signs: Height 5 ft 11 in Weight 78.6 kg Last Vital Signs Temp 98.1 F 01/20/24 07:27 Pulse 101 H 01/20/24 07:27 Resp 14 01/20/24 07:27 BP 146/71 H 01/20/24 09:54 Pulse Ox 98 01/20/24 07:27 O2 Del Method Room Air 01/20/24 07:27 Pertinent Lab Results Pertinent Lab Results: Laboratory Tests 01/16/24 01/16/24 01/16/24 16:59 17:06 18:51 WBC 10.4 RBC 3.62 L Hgb 10.6 L Hct 32.5 L MCV 89.8 MCH 29.3 MCHC 32.6 RDW 12.0 Plt Count 417 H D MPV 9.3 L Immature Gran % (Auto) 0.6 H Neut % (Auto) 81.4 H Lymph % (Auto) 12.2 L [place] % (Auto) 5.3 Eos % (Auto) 0.4 Baso % (Auto) 0.1 Lymph # (Auto) 1.3 [place] # (Auto) 0.6 Eos # (Auto) 0.0 Baso # (Auto) 0.0 Abs Immat Gran (auto) 0.06 H Absolute Neuts (auto) 8.4 H Absolute Nucleated RBC 0.000 Nucleated RBC % (auto) 0.0 ESR 97 H Hold Purple Top Sodium 131 L Potassium 4.6 Chloride 94 L Carbon Dioxide 24 Anion Gap 18 BUN 19 H Creatinine 1.02 Estim Creat Clear Calc 66.6 Estimated GFR > 60 POC Glucose Random Glucose 283 H Lactic Acid 2.3 H* Lactic Acid F/U @ 2Hr Calcium 9.9 Magnesium 1.7 Total Bilirubin 0.3 AST 34 ALT 37 Alkaline Phosphatase 107 C-Reactive Protein 31.09 H Total Protein 8.9 H Albumin 3.8 Urine Color Yellow Urine Appearance Clear Urine pH 6.0 Ur Specific [place] 1.020 Urine Protein 30 (1+) H Urine Glucose (UA) 100 H Urine Ketones Trace Urine Blood Negative Urine Nitrite Negative Ur Leukocyte Esterase Negative Urine RBC 0-2 Urine WBC 0-5 Ur Squamous Epith Cells 0-2 Urine Bacteria None Seen Hyaline Casts 0-2 Vancomycin Trough Influenza Type A (PCR) NEGATIVE Influenza Type B (PCR) NEGATIVE RSV RNA Qual (PCR) NEGATIVE SARS-CoV-2 RNA (RT-PCR) NEGATIVE 01/16/24 01/17/24 01/17/24 19:24 05:12 05:13 WBC 8.8 RBC 3.41 L Hgb 9.8 L Hct 30.4 L MCV 89.1 MCH 28.7 MCHC 32.2 RDW 11.9 Plt Count 414 H MPV 9.3 L Immature Gran % (Auto) 0.5 H Neut % (Auto) 74.1 H Lymph % (Auto) 16.6 L [place] % (Auto) 7.5 Eos % (Auto) 1.1 Baso % (Auto) 0.2 Lymph # (Auto) 1.5 [place] # (Auto) 0.7 Eos # (Auto) 0.1 Baso # (Auto) 0.0 Abs Immat Gran (auto) 0.04 H Absolute Neuts (auto) 6.5 Absolute Nucleated RBC 0.000 Nucleated RBC % (auto) 0.0 ESR Hold Purple Top Sodium 135 Potassium 4.1 Chloride 100 Carbon Dioxide 25 Anion Gap 14 BUN 10 Creatinine 0.79 Estim Creat Clear Calc 86.0 Estimated GFR > 60 POC Glucose Random Glucose 177 H Lactic Acid Lactic Acid F/U @ 2Hr 0.9 Calcium 9.3 D Magnesium Total Bilirubin AST ALT Alkaline Phosphatase C-Reactive Protein Total Protein Albumin Urine Color Urine Appearance Urine pH Ur Specific [place] Urine Protein Urine Glucose (UA) Urine Ketones Urine Blood Urine Nitrite Ur Leukocyte Esterase Urine RBC Urine WBC Ur Squamous Epith Cells Urine Bacteria Hyaline Casts Vancomycin Trough Influenza Type A (PCR) Influenza Type B (PCR) RSV RNA Qual (PCR) SARS-CoV-2 RNA (RT-PCR) 01/17/24 01/17/24 01/17/24 07:36 11:34 16:12 WBC RBC Hgb Hct MCV MCH MCHC RDW Plt Count MPV Immature Gran % (Auto) Neut % (Auto) Lymph % (Auto) [place] % (Auto) Eos % (Auto) Baso % (Auto) Lymph # (Auto) [place] # (Auto) Eos # (Auto) Baso # (Auto) Abs Immat Gran (auto) Absolute Neuts (auto) Absolute Nucleated RBC Nucleated RBC % (auto) ESR Hold Purple Top Sodium Potassium Chloride Carbon Dioxide Anion Gap BUN Creatinine Estim Creat Clear Calc Estimated GFR POC Glucose 170 H 220 H 206 H Random Glucose Lactic Acid Lactic Acid F/U @ 2Hr Calcium Magnesium Total Bilirubin AST ALT Alkaline Phosphatase C-Reactive Protein Total Protein Albumin Urine Color Urine Appearance Urine pH Ur Specific [place] Urine Protein Urine Glucose (UA) Urine Ketones Urine Blood Urine Nitrite Ur Leukocyte Esterase Urine RBC Urine WBC Ur Squamous Epith Cells Urine Bacteria Hyaline Casts Vancomycin Trough Influenza Type A (PCR) Influenza Type B (PCR) RSV RNA Qual (PCR) SARS-CoV-2 RNA (RT-PCR) 01/17/24 01/18/24 01/18/24 19:16 05:58 07:17 WBC RBC Hgb Hct MCV MCH MCHC RDW Plt Count MPV Immature Gran % (Auto) Neut % (Auto) Lymph % (Auto) [place] % (Auto) Eos % (Auto) Baso % (Auto) Lymph # (Auto) [place] # (Auto) Eos # (Auto) Baso # (Auto) Abs Immat Gran (auto) Absolute Neuts (auto) Absolute Nucleated RBC Nucleated RBC % (auto) ESR Hold Purple Top SEE NOTE Sodium Potassium Chloride Carbon Dioxide Anion Gap BUN Creatinine 0.77 Estim Creat Clear Calc 88.2 Estimated GFR > 60 POC Glucose 161 H 193 H Random Glucose Lactic Acid Lactic Acid F/U @ 2Hr Calcium Magnesium Total Bilirubin AST ALT Alkaline Phosphatase C-Reactive Protein Total Protein Albumin Urine Color Urine Appearance Urine pH Ur Specific [place] Urine Protein Urine Glucose (UA) Urine Ketones Urine Blood Urine Nitrite Ur Leukocyte Esterase Urine RBC Urine WBC Ur Squamous Epith Cells Urine Bacteria Hyaline Casts Vancomycin Trough Influenza Type A (PCR) Influenza Type B (PCR) RSV RNA Qual (PCR) SARS-CoV-2 RNA (RT-PCR) 01/18/24 01/18/24 01/18/24 11:14 16:22 20:18 WBC RBC Hgb Hct MCV MCH MCHC RDW Plt Count MPV Immature Gran % (Auto) Neut % (Auto) Lymph % (Auto) [place] % (Auto) Eos % (Auto) Baso % (Auto) Lymph # (Auto) [place] # (Auto) Eos # (Auto) Baso # (Auto) Abs Immat Gran (auto) Absolute Neuts (auto) Absolute Nucleated RBC Nucleated RBC % (auto) ESR Hold Purple Top Sodium Potassium Chloride Carbon Dioxide Anion Gap BUN Creatinine Estim Creat Clear Calc Estimated GFR POC Glucose 253 H 243 H 177 H Random Glucose Lactic Acid Lactic Acid F/U @ 2Hr Calcium Magnesium Total Bilirubin AST ALT Alkaline Phosphatase C-Reactive Protein Total Protein Albumin Urine Color Urine Appearance Urine pH Ur Specific [place] Urine Protein Urine Glucose (UA) Urine Ketones Urine Blood Urine Nitrite Ur Leukocyte Esterase Urine RBC Urine WBC Ur Squamous Epith Cells Urine Bacteria Hyaline Casts Vancomycin Trough Influenza Type A (PCR) Influenza Type B (PCR) RSV RNA Qual (PCR) SARS-CoV-2 RNA (RT-PCR) 01/19/24 01/19/24 01/19/24 05:55 06:59 11:02 WBC RBC Hgb Hct MCV MCH MCHC RDW Plt Count MPV Immature Gran % (Auto) Neut % (Auto) Lymph % (Auto) [place] % (Auto) Eos % (Auto) Baso % (Auto) Lymph # (Auto) [place] # (Auto) Eos # (Auto) Baso # (Auto) Abs Immat Gran (auto) Absolute Neuts (auto) Absolute Nucleated RBC Nucleated RBC % (auto) ESR Hold Purple Top SEE NOTE Sodium Potassium Chloride Carbon Dioxide Anion Gap BUN Creatinine 0.74 Estim Creat Clear Calc 91.8 Estimated GFR > 60 POC Glucose 136 H 324 H Random Glucose Lactic Acid Lactic Acid F/U @ 2Hr Calcium Magnesium Total Bilirubin AST ALT Alkaline Phosphatase C-Reactive Protein Total Protein Albumin Urine Color Urine Appearance Urine pH Ur Specific [place] Urine Protein Urine Glucose (UA) Urine Ketones Urine Blood Urine Nitrite Ur Leukocyte Esterase Urine RBC Urine WBC Ur Squamous Epith Cells Urine Bacteria Hyaline Casts Vancomycin Trough Influenza Type A (PCR) Influenza Type B (PCR) RSV RNA Qual (PCR) SARS-CoV-2 RNA (RT-PCR) 01/19/24 01/19/24 01/19/24 16:07 18:01 20:05 WBC RBC Hgb Hct MCV MCH MCHC RDW Plt Count MPV Immature Gran % (Auto) Neut % (Auto) Lymph % (Auto) [place] % (Auto) Eos % (Auto) Baso % (Auto) Lymph # (Auto) [place] # (Auto) Eos # (Auto) Baso # (Auto) Abs Immat Gran (auto) Absolute Neuts (auto) Absolute Nucleated RBC Nucleated RBC % (auto) ESR Hold Purple Top Sodium Potassium Chloride Carbon Dioxide Anion Gap BUN Creatinine Estim Creat Clear Calc Estimated GFR POC Glucose 284 H 278 H Random Glucose Lactic Acid Lactic Acid F/U @ 2Hr Calcium Magnesium Total Bilirubin AST ALT Alkaline Phosphatase C-Reactive Protein Total Protein Albumin Urine Color Urine Appearance Urine pH Ur Specific [place] Urine Protein Urine Glucose (UA) Urine Ketones Urine Blood Urine Nitrite Ur Leukocyte Esterase Urine RBC Urine WBC Ur Squamous Epith Cells Urine Bacteria Hyaline Casts Vancomycin Trough 6.0 L Influenza Type A (PCR) Influenza Type B (PCR) RSV RNA Qual (PCR) SARS-CoV-2 RNA (RT-PCR) 01/20/24 01/20/24 05:00 07:05 WBC RBC Hgb Hct MCV MCH MCHC RDW Plt Count MPV Immature Gran % (Auto) Neut % (Auto) Lymph % (Auto) [place] % (Auto) Eos % (Auto) Baso % (Auto) Lymph # (Auto) [place] # (Auto) Eos # (Auto) Baso # (Auto) Abs Immat Gran (auto) Absolute Neuts (auto) Absolute Nucleated RBC Nucleated RBC % (auto) ESR Hold Purple Top SEE NOTE Sodium Potassium Chloride Carbon Dioxide Anion Gap BUN Creatinine 0.88 Estim Creat Clear Calc 77.2 Estimated GFR > 60 POC Glucose 176 H Random Glucose Lactic Acid Lactic Acid F/U @ 2Hr Calcium Magnesium Total Bilirubin AST ALT Alkaline Phosphatase C-Reactive Protein Total Protein Albumin Urine Color Urine Appearance Urine pH Ur Specific [place] Urine Protein Urine Glucose (UA) Urine Ketones Urine Blood Urine Nitrite Ur Leukocyte Esterase Urine RBC Urine WBC Ur Squamous Epith Cells Urine Bacteria Hyaline Casts Vancomycin Trough Influenza Type A (PCR) Influenza Type B (PCR) RSV RNA Qual (PCR) SARS-CoV-2 RNA (RT-PCR) Airway Mallampati Class: III (globally poor dentition) TM Dist: >3cm Neck ROM: Full Loose/Missing/Broken Teeth: Yes, Upper and Lower Heart: RRR Lungs: CTA Assessment and Plan Assessment Anesthesia Assessment: Anesthesia Plan Discussed and Chart Reviewed Final Anesthetic Review Family History of Problems with Anesthesia: No History of Problems with Anesthesia: No NPO: Yes ASA Class: III Final Preanesthetic Review: Meds/Allgs Chart Reviewed, Consent Obtained/Reviewed and Anes Risks/Benef Reviewed Patient Risk: Intermediate Procedure Risk: Low Anesthetic Plan Anesthetic Plan: GA Disposition: Standard PACU
[2024-01-20 11:26] LABS: Glucose, Whole Blood 168 mg/dL (60-115)
--- NOTE | 2024-01-20 12:20 | MHC.CM.PN ---
EMR reviewed. Per MD rounds patient scheduled for OR today, not ready for dc. CM will continue to follow.
--- NOTE | 2024-01-20 12:32 | HO.PM.IMPN ---
Subjective Subjective Date of Service: 01/20/24 Interval History: Seen and examined this morning Follow-up for nonhealing foot wound Plan for TMA today No overnight events, no specific complaints at this time Review of Systems Review of Systems: Yes all other systems are reviewed and are negative Constitutional Constitutional: Denies chills and Denies fever(s) Physical Exam Vital Signs: Vital Signs: Last Vital Signs Temp 98.1 F 01/20/24 12:02 Pulse 95 01/20/24 12:02 Resp 18 01/20/24 12:02 BP 141/74 H 01/20/24 12:02 Pulse Ox 96 01/20/24 12:02 O2 Del Method Room Air 01/20/24 12:02 BMI result Body Mass Index 24.2 Const: General: cooperative, comfortable, alert and awake Nutritional Appearance: average body habitus Orientation/consciousness: patient oriented x3 Resp: Effort & Inspection: normal respiratory effort, able to speak in complete sentences, no respiratory distress and no use of accessory muscles Cardio: Rate: regular rate GI: Inspection: No distended Palpation (GI): Soft to palpation and nontender Neuro: General: patient oriented x3, moves all extremities and CN's II-XI intact bilaterally Objective Data Active Medications Acetaminophen (Acetaminophen 325 Mg Tablet) 650 mg PO Q6H PRN PRN Reason: Pain, Mild (Pain Scale 1-3) Last Admin: 01/17/24 19:19 Dose: 650 mg Documented By: SAMI Amlodipine Besylate (Amlodipine Besylate 10 Mg Tablet) 10 mg PO DAILY [facility]; Protocol Last Admin: 01/20/24 09:54 Dose: 10 mg Documented By: MARILYN Aspirin (Aspirin Enteric Coated 81 Mg Tablet.Dr) 81 mg PO DAILY [facility] Last Admin: 01/20/24 09:08 Dose: Not Given Documented By: MARILYN Non-Admin Reason: NPO Atorvastatin Calcium (Atorvastatin Calcium 20 Mg Tablet) 20 mg PO BEDTIME [facility] Last Admin: 01/19/24 19:28 Dose: 20 mg Documented By: PATRICE Enoxaparin Sodium (Enoxaparin Sodium 40 Mg/0.4 Ml Syringe) 40 mg SUBCUT Q24H [facility] Last Admin: 01/19/24 19:28 Dose: 40 mg Documented By: PATRICE Glucose (Glucose Gel 15 Gm Gel..Gram.) 15 gm PO Q15M PRN; Protocol PRN Reason: per Hypoglycemia Standing Ord. Piperacillin Sod/Tazobactam (Sod 4.5 gm/ Sodium Chloride) 100 mls @ 200 mls/hr IV Q6H [facility] Last Infusion: 01/20/24 06:51 Dose: Infused Documented By: ANTOIC Dextrose (D10) 250 mls @ 750 mls/hr IV Q15M PRN; Protocol PRN Reason: per Hypoglycemia Standing Ord. Vancomycin HCl 1,250 mg/ (Sodium Chloride) 250 mls @ 166.667 mls/hr IV Q12H [facility] Last Infusion: 01/20/24 10:40 Dose: Infused Documented By: MARILYN Insulin Human Lispro (Insulin Lispro 100 Unit/Ml 3 Ml Vial) 0 unit SUBCUT QIDACHS [facility]; Protocol Last Admin: 01/20/24 11:31 Dose: Not Given Documented By: MARILYN Non-Admin Reason: NPO Lisinopril (Lisinopril 10 Mg Tablet) 10 mg PO DAILY [facility]; Protocol Last Admin: 01/20/24 09:55 Dose: Not Given Documented By: MARILYN Non-Admin Reason: NPO Melatonin (Melatonin 3 Mg Tablet) 6 mg PO BEDTIME PRN PRN Reason: Insomnia Morphine Sulfate (Morphine Sulfate 4 Mg/Ml Cartridge) 4 mg IVPUSH Q6H PRN; Protocol PRN Reason: Pain, Severe (Pain Scale 7-10) Last Admin: 01/20/24 06:02 Dose: 4 mg Documented By: CHARLOTTE Ondansetron HCl (Ondansetron Hcl 4 Mg/2 Ml Vial) 4 mg IVPUSH Q8H PRN PRN Reason: Nausea and Vomiting Pharmacy Consult (Consult Rx Vancomycin Dosing) 1 each MISCELLANE DAILY PRN PRN Reason: Consult order Sodium Chloride (0.9 % Sodium Chloride Flush 3 Ml Syringe) [facility] Last Admin: 01/20/24 09:03 Dose: 3 ml Documented By: MARILYN Labs 01/17/24 05:12 01/20/24 05:00 Labs: Laboratory Results - last 24 hr 01/19/24 01/19/24 01/19/24 16:07 18:01 20:05 Hold Purple Top Estim Creat Clear Calc Estimated GFR POC Glucose 284 H 278 H Vancomycin Trough 6.0 L 01/20/24 01/20/24 01/20/24 05:00 07:05 11:22 Hold Purple Top SEE NOTE Estim Creat Clear Calc 77.2 Estimated GFR > 60 POC Glucose 176 H 168 H Vancomycin Trough Assessment and Plan (1) PAD (peripheral artery disease): Status: Acute (2) Cellulitis: Status: Acute Plan This is a 73-year-old male with pertinent history of peripheral vascular disease status post right 2nd toe amputation, non insulin-dependent diabetes mellitus, essential hypertension, mixed hyperlipidemia, history of CVA who presents to the emergency department for concerns of right foot infection. Purulent cellulitis and diabetic foot infection of right foot Underwent amputation of right 2nd toe on 01/09/[address] Simpson. purulent drainage from the wound site. continue vanco and zosyn Duplex study showing no significant stenosis or occlusion seen by vascular surgery> plan for TMA today 01/19 Dve-yizfptv-xloxpuarg type 2 diabetes mellitus with hyperglycemia ss, ada diet hold metformin Essential hypertension Continue home antihypertensives, norvasc and lisinopril Acute lactic acidosis due to metformin use. No sepsis History of CVA On aspirin and statin Normocytic anemia Hemoglobin above transfusion threshold DVT prophylaxis: [place] Attending Dr. García Full code continue hospital stay for IV antibiotics (as above) and planned surgical intervention Quality Stroke Does the patient have a stroke diagnosis?: No VTE Prior VTE?: No VTE Risk Level:: Medical - moderate - high VTE Device Contraindication: Treatment Not Indicated VTE Drug Contraindication: N/A - Med Ordered
[2024-01-20 12:46] LABS: Glucose, Whole Blood 145 mg/dL (60-115)
--- NOTE | 2024-01-20 12:46 | MHC.SHP ---
Pre-Procedural Eval Section A - 24 Hr Update-Section A only Date of Service: 01/20/24 The patient is an INPATIENT: Yes Changes since office visit: Yes Patient answered all questions The patient has been examined within 24 hours of the surgical procedure. The History & Physical has been completed within 30 days and I have reviewed it.: Yes Section B - Complete if H&P > 30 days Chief Complaint: Foot infection Allergies: Allergies Allergy/AdvReac Type Severity Reaction Status Date / Time sitagliptin [From JANUVIA] Allergy Unknown vomitting Verified 01/16/24 15:09 dulaglutide [From Trulicity] AdvReac Intermediate Rash Verified 01/16/24 15:09 pioglitazone [From Actos] AdvReac Intermediate palpatation Verified 01/16/24 15:09 s Plan I have reviewed the history and physical and performed a pertinent physical examination on my patient. No changes have occurred unless specified. Time Spent With Patient Time: Total time managing care of this patient today ____ minutes.
--- NOTE | 2024-01-20 14:23 | W.PM.OPN ---
Operative Note Operative Note Date of Service: 01/20/24 Narrative: Operative note by [facility] Preoperative diagnosis:1. Nonhealing right toe amp 2. Diabetic foot ulcer Postoperative diagnosis: Same Procedure: Right foot transmetatarsal amputation Surgeon:Tj Simpson M.D. Collection Technician: Souleymane Anesthesia: General Specimens: None Drains: None Estimated blood loss: Minimal Indications: 73-year-old gentleman with a prior right 2nd toe amputation. It has been nonhealing and now an additional toe has become necrotic. He now presents for transmetatarsal amputation The patient has signed the informed consent after reviewing risks, complications, benefits, and alternatives previously discussed with the patient. The patient was given the opportunity to ask any additional questions or voice any concerns. All questions were answered to the patient's satisfaction. Procedure in detail: Patient was brought to the operating room prior to which a time-out was called for patient identification site verification. Right foot was prepped and draped in standard surgical fashion. A curvilinear incision was carried out over the dorsum of the foot. We also made a posterior flap. This was taken through the skin subcu fascia down to the bone. We then used electrocautery to get through the fascia and the muscle tissue. The dorsalis pedis artery had to be tied off with a silk tie. Once this was done we used a power saw to come across. We were able to get across all the metatarsal heads. We used electrocautery to create the posterior flap. Amp site was then thoroughly irrigated out. We used a bony file rasp to file down the entire bony tissue. We then brought the posterior flap anterior. We sutured this down with a 2-0 Polysorb. Once this was accomplished we did a more superficial layer with 3-0 poly Sorb finally a 2-0 nylon in a mattress fashion along with skin clips. Xeroform and a sterile dressing were applied. At the end sponge instrument counts were correct. Patient tolerated the procedure well. Returned to recovery with stable vitals. This note is constructed using voice recognition software. While every effort has been made to ensure accuracy, group home worker errors may have been included. Thank you for allowing me to participate in the care of your patient. Yours sincerely, Tj Simpson MD, FACS, R.P.V.I.
--- NOTE | 2024-01-20 14:42 | PM.EVENT ---
Event Note Date of Service: 01/20/24 Event Note: Status post transmetatarsal amputation. Will plan for OR dressing change on Tuesday. Case discussed with family. Time Spent With Patient Time: Total time managing care of this patient today ____ minutes.
[2024-01-20 16:14] LABS: Glucose, Whole Blood 200 mg/dL (60-115)
[2024-01-20] MEDS: Insulin Lispro 100 UNIT/ML 3 ML VIAL SUBCUT ×2 (16:27→21:20)
[2024-01-20] MEDS: oxyCODONE HCl Immed Release 5 MG TABLET PO (16:29)
[2024-01-20 18:53] LABS: Vancomycin Random 14.4 mcg/mL (15-20)
[2024-01-20] MEDS: vancomycin HCL 1,250 MG in 0.9 % Sodium Chloride 250 ML 166.67 MG IV (19:25)
[2024-01-20 20:04] LABS: Glucose, Whole Blood 280 mg/dL (60-115)
[2024-01-20] MEDS: Enoxaparin Sodium 40 MG/0.4 ML SYRINGE SUBCUT (21:12)
[2024-01-20] MEDS: Atorvastatin Calcium 20 MG TABLET PO (21:12)
[2024-01-21] VITALS (7 sets, daily range): BP systolic 114–140; BP diastolic 62–70; PULSE 94–109; RESP 18; TEMP 36.8–37.1; O2SAT 97–98
[2024-01-21] MEDS: Piperacillin Sodium/Tazobactam 4.5 GM in 0.9 % Sodium Chloride 100 ML IV ×4 (00:57→20:21)
[2024-01-21] MEDS: Melatonin 3 MG TABLET 6 MG PO (01:01)
[2024-01-21] MEDS: Morphine Sulfate 4 MG/ML CARTRIDGE IVPUSH ×3 (06:34→20:58)
[2024-01-21 06:42] LABS: Hematocrit 29.3 % (42.0-52.0); Hemoglobin 9.6 g/dl (14.0-18.0); Mean Corpuscular HGB Conc 32.8 g/dl (31.0-36.0); Mean Corpuscular Volume 88.5 fL (80.0-98.0); Platelet Count 464 X10*3/uL (160-400); Red Blood Count 3.31 X10*6/uL (4.60-5.80); Red Cell Distribution Width 12.2 % (11.0-16.0); White Blood Count 10.7 X10*3/uL (4.8-10.8)
[2024-01-21 06:54] LABS: Creatinine Clr Calc Pharmacy 82.9; Estimated Glomerular Filt Rate > 60
[2024-01-21 07:26] LABS: Glucose, Whole Blood 187 mg/dL (60-115)
[2024-01-21] MEDS: amLODIPine Besylate 10 MG TABLET PO (08:12)
[2024-01-21] MEDS: Aspirin Enteric Coated 81 MG TABLET.DR PO (08:12)
[2024-01-21] MEDS: 0.9 % Sodium Chloride Flush 3 ML SYRINGE IVFLUSH ×2 (08:13→20:18)
[2024-01-21] MEDS: Insulin Lispro 100 UNIT/ML 3 ML VIAL SUBCUT ×4 (08:13→20:18)
[2024-01-21] MEDS: lisinopriL 10 MG TABLET PO (08:13)
[2024-01-21] MEDS: vancomycin HCL 1,250 MG in 0.9 % Sodium Chloride 250 ML 166.67 MG IV ×2 (09:05→20:59)
--- NOTE | 2024-01-21 09:20 | HO.POSTANES ---
Post Anesthesia Evaluation Post Anesthesia Evaluation Date of Service: 01/21/24 Vital Signs: Vital Signs Temp Pulse Resp BP Pulse Ox O2 Del Method 01/21/24 08:13 122/69 01/21/24 08:12 122/69 01/21/24 03:00 98.5 F 109 H 18 / 97 Room Air Anesthesia: General LMA Mental Status: Awake Pain Control: Satisfactory Nausea/Vomiting: None Hydration: Adequate Anesthesia-Related Issues: No Anes. Related Issues
[2024-01-21 11:08] LABS: Glucose, Whole Blood 177 mg/dL (60-115)
[2024-01-21] MEDS: Docusate Sodium 100 MG CAPSULE PO (11:51)
--- NOTE | 2024-01-21 13:30 | P.PNIM_ITS ---
Subjective Subjective Date of Service: 01/21/24 Interval History: Seen and examined this morning Follow-up for nonhealing foot wound s/p tma POD1 No overnight events, no specific complaints at this time Review of Systems Review of Systems: Yes all other systems are reviewed and are negative Constitutional Constitutional: Denies chills and Denies fever(s) Physical Exam 2 Vital Signs: Vital Signs: Last Vital Signs Temp 98.2 F 01/21/24 10:47 Pulse 94 01/21/24 10:47 Resp 18 01/21/24 10:47 BP 140/62 H 01/21/24 10:47 Pulse Ox 98 01/21/24 12:33 O2 Del Method Room Air 01/21/24 12:33 O2 Flow Rate 2 01/20/24 14:17 BMI result Body Mass Index 24.2 Constitutional - Awake and Alert, No apparent distress Eyes - PERRLA, EOMI Cardiovascular - S1S2, RRR, No edema Respiratory - Normal lung expansion, Normal respiratory effort, No respiratory distress, CTA bilaterally Extremities - no calf tenderness bilaterally, no swelling Skin - Warm/Dry . Post-op bandage/wrap in place right foot s/p tma Neurological - Alert & oriented x3 Psychological - Appropriate affect Objective Data Active Medications Acetaminophen (Acetaminophen 325 Mg Tablet) 650 mg PO Q6H PRN PRN Reason: Pain, Mild (Pain Scale 1-3) Last Admin: 01/17/24 19:19 Dose: 650 mg Documented By: SAMI Amlodipine Besylate (Amlodipine Besylate 10 Mg Tablet) 10 mg PO DAILY [facility]; Protocol Last Admin: 01/21/24 08:12 Dose: 10 mg Documented By: DANITZA Aspirin (Aspirin Enteric Coated 81 Mg Tablet.) 81 mg PO DAILY [facility] Last Admin: 01/21/24 08:12 Dose: 81 mg Documented By: DANITZA Atorvastatin Calcium (Atorvastatin Calcium 20 Mg Tablet) 20 mg PO BEDTIME [facility] Last Admin: 01/20/24 21:12 Dose: 20 mg Documented By: SERENA Docusate Sodium (Docusate Sodium 100 Mg Capsule) 100 mg PO BID PRN PRN Reason: Constipation Last Admin: 01/21/24 11:51 Dose: 100 mg Documented By: DANITZA Enoxaparin Sodium (Enoxaparin Sodium 40 Mg/0.4 Ml Syringe) 40 mg SUBCUT Q24H [facility] Last Admin: 01/20/24 21:12 Dose: 40 mg Documented By: SERENA Glucose (Glucose Gel 15 Gm Gel..Gram.) 15 gm PO Q15M PRN; Protocol PRN Reason: per Hypoglycemia Standing Ord. Piperacillin Sod/Tazobactam (Sod 4.5 gm/ Sodium Chloride) 100 mls @ 200 mls/hr IV Q6H [facility] Last Infusion: 01/21/24 07:25 Dose: Infused Documented By: DANITZA Dextrose (D10) 250 mls @ 750 mls/hr IV Q15M PRN; Protocol PRN Reason: per Hypoglycemia Standing Ord. Vancomycin HCl 1,250 mg/ (Sodium Chloride) 250 mls @ 166.667 mls/hr IV Q12H [facility] Last Infusion: 01/21/24 10:37 Dose: Infused Documented By: DANITZA Insulin Human Lispro (Insulin Lispro 100 Unit/Ml 3 Ml Vial) 0 unit SUBCUT QIDACHS [facility]; Protocol Last Admin: 01/21/24 11:51 Dose: 2 unit Documented By: DANITZA Lisinopril (Lisinopril 10 Mg Tablet) 10 mg PO DAILY [facility]; Protocol Last Admin: 01/21/24 08:13 Dose: 10 mg Documented By: DANITZA Melatonin (Melatonin 3 Mg Tablet) 6 mg PO BEDTIME PRN PRN Reason: Insomnia Last Admin: 01/21/24 01:01 Dose: 6 mg Documented By: SERENA Morphine Sulfate (Morphine Sulfate 4 Mg/Ml Cartridge) 4 mg IVPUSH Q6H PRN; Protocol PRN Reason: Pain, Severe (Pain Scale 7-10) Last Admin: 01/21/24 06:34 Dose: 4 mg Documented By: SERENA Ondansetron HCl (Ondansetron Hcl 4 Mg/2 Ml Vial) 4 mg IVPUSH Q8H PRN PRN Reason: Nausea and Vomiting Pharmacy Consult (Consult Rx Vancomycin Dosing) 1 each MISCELLANE DAILY PRN PRN Reason: Consult order Sodium Chloride (0.9 % Sodium Chloride Flush 3 Ml Syringe) [address] [facility] Last Admin: 01/21/24 08:13 Dose: 3 ml Documented By: DANITZA Labs 01/21/24 06:11 01/21/24 06:11 Labs: Laboratory Results - last 24 hr 01/20/24 01/20/24 01/20/24 16:06 17:55 19:57 MCV MCH MCHC RDW Plt Count MPV Absolute Nucleated RBC Nucleated RBC % (auto) Estim Creat Clear Calc Estimated GFR POC Glucose 200 H 280 H Random Vancomycin 14.4 L 01/21/24 01/21/24 01/21/24 06:11 07:13 10:50 MCV 88.5 MCH 29.0 MCHC 32.8 RDW 12.2 Plt Count 464 H MPV 9.0 L Absolute Nucleated RBC 0.000 Nucleated RBC % (auto) 0.0 Estim Creat Clear Calc 82.9 Estimated GFR > 60 POC Glucose 187 H 177 H Random Vancomycin Assessment and Plan (1) PAD (peripheral artery disease): Status: Acute (2) Cellulitis: Status: Acute Plan This is a 73-year-old male with pertinent history of peripheral vascular disease status post right 2nd toe amputation, non insulin-dependent diabetes mellitus, essential hypertension, mixed hyperlipidemia, history of CVA who presents to the emergency department for concerns of right foot infection. Purulent cellulitis and diabetic foot infection of right foot Underwent amputation of right 2nd toe on 01/09/[address] Simpson. Now s/p R TMA 01/19 continue vanco and zosyn for now Duplex study showing no significant stenosis or occlusion Vascular surgery input appreciated Ebi-eooumhi-bpmexhaha type 2 diabetes mellitus with hyperglycemia ss, ada diet hold metformin Essential hypertension Continue home antihypertensives, norvasc and lisinopril Acute lactic acidosis due to metformin use. No sepsis History of CVA On aspirin and statin Normocytic anemia Hemoglobin above transfusion threshold DVT prophylaxis: Love[place] Attending Dr. García Full code continue hospital stay for IV antibiotics (as above) s/p R tma with expert consultation Quality Stroke Does the patient have a stroke diagnosis?: No VTE Prior VTE?: No VTE Risk Level:: Medical - moderate - high VTE Device Contraindication: Treatment Not Indicated VTE Drug Contraindication: N/A - Med Ordered
[2024-01-21 16:24] LABS: Glucose, Whole Blood 235 mg/dL (60-115)
[2024-01-21 18:43] LABS: Vancomycin Random 14.5 mcg/mL (15-20)
--- NOTE | 2024-01-21 18:54 | HE.PHANOTE ---
RE: VANCO DOSING Random came back as 14.5 which is higher than predicted 12.8 (predicted AUC 474). Continue with dosing of 1250 mg q12h, next random is scheduled for 01/22/24 @1800.
[2024-01-21 20:12] LABS: Glucose, Whole Blood 193 mg/dL (60-115)
[2024-01-21] MEDS: Atorvastatin Calcium 20 MG TABLET PO (20:18)
[2024-01-21] MEDS: Enoxaparin Sodium 40 MG/0.4 ML SYRINGE SUBCUT (20:19)
[2024-01-22] MEDS: Piperacillin Sodium/Tazobactam 4.5 GM in 0.9 % Sodium Chloride 100 ML IV ×4 (01:38→19:04)
[2024-01-22 03:00] VITALS: BP 120/69; PULSE 98; RESP 18; TEMP 36.9; O2SAT 98
[2024-01-22 06:40] LABS: MANUAL DIFF FLAG NO
[2024-01-22 06:48] LABS: Basophils Percent Auto 0.1 % (0-2); Eosinophils Absolute Auto 0.1 X10*3/uL (0.0-0.4); Eosinophils Percent Auto 0.7 % (0-4); Hematocrit 25.8 % (42.0-52.0); Hemoglobin 8.5 g/dl (14.0-18.0); Imm Gran Abs Auto 0.06 X10*3/uL (0.00-0.03); Imm Gran Pct Auto 0.7 % (0.0-0.4); Lymphocytes Absolute Auto 1.2 X10*3/uL (1.2-4.9); Lymphocytes Percent Auto 14.1 % (20-40); Mean Corpuscular HGB Conc 32.9 g/dl (31.0-36.0); Mean Corpuscular Hemoglobin 28.9 pg (27.0-33.0); Mean Corpuscular Volume 87.8 fL (80.0-98.0); Monocytes Absolute Auto 0.6 X10*3/uL (0.1-1.2); Monocytes Percent Auto 7.4 % (2-11); Neutrophils Absolute Auto 6.3 x10*3/uL (2.0-8.3); Platelet Count 428 X10*3/uL (160-400); Red Blood Count 2.94 X10*6/uL (4.60-5.80); Red Cell Distribution Width 12.2 % (11.0-16.0); White Blood Count 8.2 X10*3/uL (4.8-10.8)
[2024-01-22 07:03] LABS: Creatinine Clr Calc Pharmacy 91.8; Estimated Glomerular Filt Rate > 60
[2024-01-22 07:13] VITALS: BP 135/77; PULSE 99; RESP 18; TEMP 36.1; O2SAT 98
[2024-01-22 07:39] LABS: Glucose, Whole Blood 145 mg/dL (60-115)
[2024-01-22] MEDS: 0.9 % Sodium Chloride Flush 3 ML SYRINGE IVFLUSH ×3 (07:50→23:37)
--- NOTE | 2024-01-22 08:25 | PC.NURSE ---
Pt stated to this sheet writer while disconnecting his IV that he had a fall last night and slipped on the floor an fell on his buttocks. The patient does not recall what time this happened and there is no documentation r/t such event. PA notfied at this time.
[2024-01-22 08:34] VITALS: BP 135/77
[2024-01-22] MEDS: Aspirin Enteric Coated 81 MG TABLET.DR PO (08:34)
[2024-01-22] MEDS: lisinopriL 10 MG TABLET PO (08:34)
[2024-01-22] MEDS: amLODIPine Besylate 10 MG TABLET PO (08:34)
[2024-01-22] MEDS: Docusate Sodium 100 MG CAPSULE PO (08:36)
[2024-01-22] MEDS: vancomycin HCL 1,250 MG in 0.9 % Sodium Chloride 250 ML 166.66 MG IV ×2 (08:37→19:36)
[2024-01-22] MEDS: Morphine Sulfate 4 MG/ML CARTRIDGE IVPUSH ×2 (09:35→15:57)
[2024-01-22 11:10] LABS: Glucose, Whole Blood 286 mg/dL (60-115)
[2024-01-22] MEDS: Insulin Lispro 100 UNIT/ML 3 ML VIAL SUBCUT ×2 (11:54→20:09)
[2024-01-22 12:00] VITALS: BP 126/70; PULSE 102; RESP 20; TEMP 37; O2SAT 98
--- NOTE | 2024-01-22 12:51 | P.PNIM_ITS ---
Subjective Subjective Date of Service: 01/22/24 Interval History: Seen and examined this morning Follow-up for nonhealing foot wound s/p tma POD2 No overnight events, no specific complaints at this time Review of Systems Review of Systems: Yes all other systems are reviewed and are negative Physical Exam 2 Vital Signs: Vital Signs: Last Vital Signs Temp 98.6 F 01/22/24 12:00 Pulse 102 H 01/22/24 12:00 Resp 20 01/22/24 12:00 BP 126/70 01/22/24 12:00 Pulse Ox 98 01/22/24 12:00 O2 Del Method Room Air 01/22/24 12:00 O2 Flow Rate 2 01/20/24 14:17 BMI result Body Mass Index 24.2 Constitutional - Awake and Alert, No apparent distress Eyes - PERRLA, EOMI Cardiovascular - S1S2, RRR, No edema Respiratory - Normal lung expansion, Normal respiratory effort, No respiratory distress, CTA bilaterally Extremities - no calf tenderness bilaterally, no swelling Skin - Warm/Dry . Post-op bandage/wrap in place right foot s/p tma Neurological - Alert & oriented x3 Psychological - Appropriate affect Objective Data Active Medications Acetaminophen (Acetaminophen 325 Mg Tablet) 650 mg PO Q6H PRN PRN Reason: Pain, Mild (Pain Scale 1-3) Last Admin: 01/17/24 19:19 Dose: 650 mg Documented By: SAMI Amlodipine Besylate (Amlodipine Besylate 10 Mg Tablet) 10 mg PO DAILY [facility]; Protocol Last Admin: 01/22/24 08:34 Dose: 10 mg Documented By: ERICA Aspirin (Aspirin Enteric Coated 81 Mg Tablet.) 81 mg PO DAILY [facility] Last Admin: 01/22/24 08:34 Dose: 81 mg Documented By: ERICA Atorvastatin Calcium (Atorvastatin Calcium 20 Mg Tablet) 20 mg PO BEDTIME [facility] Last Admin: 01/21/24 20:18 Dose: 20 mg Documented By: SANDRA Docusate Sodium (Docusate Sodium 100 Mg Capsule) 100 mg PO BID PRN PRN Reason: Constipation Last Admin: 01/22/24 08:36 Dose: 100 mg Documented By: ERICA Enoxaparin Sodium (Enoxaparin Sodium 40 Mg/0.4 Ml Syringe) 40 mg SUBCUT Q24H [facility] Last Admin: 01/21/24 20:19 Dose: 40 mg Documented By: SANDRA Glucose (Glucose Gel 15 Gm Gel..Gram.) 15 gm PO Q15M PRN; Protocol PRN Reason: per Hypoglycemia Standing Ord. Dextrose (D10) 250 mls @ 750 mls/hr IV Q15M PRN; Protocol PRN Reason: per Hypoglycemia Standing Ord. Vancomycin HCl 1,250 mg/ (Sodium Chloride) 250 mls @ 166.667 mls/hr IV Q12H [facility] Last Infusion: 01/22/24 10:42 Dose: Infused Documented By: ERICA Piperacillin Sod/Tazobactam (Sod 4.5 gm/ Sodium Chloride) 100 mls @ 200 mls/hr IV Q6H [facility] Last Infusion: 01/22/24 08:43 Dose: Infused Documented By: ERICA Insulin Human Lispro (Insulin Lispro 100 Unit/Ml 3 Ml Vial) 0 unit SUBCUT QIDACHS [facility]; Protocol Last Admin: 01/22/24 11:54 Dose: 6 unit Documented By: ERICA Lisinopril (Lisinopril 10 Mg Tablet) 10 mg PO DAILY [facility]; Protocol Last Admin: 01/22/24 08:34 Dose: 10 mg Documented By: ERICA Melatonin (Melatonin 3 Mg Tablet) 6 mg PO BEDTIME PRN PRN Reason: Insomnia Last Admin: 01/21/24 01:01 Dose: 6 mg Documented By: ODRISDima Morphine Sulfate (Morphine Sulfate 4 Mg/Ml Cartridge) 4 mg IVPUSH Q6H PRN; Protocol PRN Reason: Pain, Severe (Pain Scale 7-10) Last Admin: 01/22/24 09:35 Dose: 4 mg Documented By: ERICA Ondansetron HCl (Ondansetron Hcl 4 Mg/2 Ml Vial) 4 mg IVPUSH Q8H PRN PRN Reason: Nausea and Vomiting Pharmacy Consult (Consult Rx Vancomycin Dosing) 1 each MISCELLANE DAILY PRN PRN Reason: Consult order Sodium Chloride (0.9 % Sodium Chloride Flush 3 Ml Syringe) [facility] Last Admin: 01/22/24 07:50 Dose: 3 ml Documented By: ERICA Labs 01/22/24 06:10 01/22/24 06:10 Labs: Laboratory Results - last 24 hr 01/21/24 01/21/24 01/21/24 16:20 18:02 20:02 MCV MCH MCHC RDW Plt Count MPV Immature Gran % (Auto) Neut % (Auto) Lymph % (Auto) Cross % (Auto) Eos % (Auto) Baso % (Auto) Lymph # (Auto) Cross # (Auto) Eos # (Auto) Baso # (Auto) Abs Immat Gran (auto) Absolute Neuts (auto) Absolute Nucleated RBC Nucleated RBC % (auto) Estim Creat Clear Calc Estimated GFR POC Glucose 235 H 193 H Random Vancomycin 14.5 L 01/22/24 01/22/24 01/22/24 06:10 07:11 11:06 MCV 87.8 MCH 28.9 MCHC 32.9 RDW 12.2 Plt Count 428 H MPV 9.0 L Immature Gran % (Auto) 0.7 H Neut % (Auto) 77.0 H Lymph % (Auto) 14.1 L Cross % (Auto) 7.4 Eos % (Auto) 0.7 Baso % (Auto) 0.1 Lymph # (Auto) 1.2 Cross # (Auto) 0.6 Eos # (Auto) 0.1 Baso # (Auto) 0.0 Abs Immat Gran (auto) 0.06 H Absolute Neuts (auto) 6.3 Absolute Nucleated RBC 0.000 Nucleated RBC % (auto) 0.0 Estim Creat Clear Calc 91.8 Estimated GFR > 60 POC Glucose 145 H 286 H Random Vancomycin Microbiology Microbiology Results: Microbiology 01/16/24 18:29 Blood Culture - Final Blood - Venous No growth after 5 days. 01/16/24 17:06 Blood Culture - Final Blood - Venous No growth after 5 days. Assessment and Plan (1) PAD (peripheral artery disease): Status: Acute (2) Cellulitis: Status: Acute Plan This is a 73-year-old male with pertinent history of peripheral vascular disease status post right 2nd toe amputation, non insulin-dependent diabetes mellitus, essential hypertension, mixed hyperlipidemia, history of CVA who presents to the emergency department for concerns of right foot infection. Purulent cellulitis and diabetic foot infection of right foot Underwent amputation of right 2nd toe on 01/09/[address] Simpson. Now s/p R TMA 01/19 continue vanco and zosyn for now Duplex study showing no significant stenosis or occlusion Vascular surgery input appreciated Zhv-evqduoj-zlztjrira type 2 diabetes mellitus with hyperglycemia ss, ada diet hold metformin Essential hypertension Continue home antihypertensives, norvasc and lisinopril Acute lactic acidosis due to metformin use. No sepsis History of CVA On aspirin and statin Normocytic anemia Hemoglobin above transfusion threshold DVT prophylaxis: Lovenox Full code continue hospital stay for IV antibiotics (as above) s/p R tma with expert consultation Quality Stroke Does the patient have a stroke diagnosis?: No VTE Prior VTE?: No VTE Risk Level:: Medical - moderate - high VTE Device Contraindication: Treatment Not Indicated VTE Drug Contraindication: N/A - Med Ordered
--- NOTE | 2024-01-22 13:47 | PC.NURSE ---
Patient reported fall overnight, stated he wanted to get up and slipped falling on his buttocks, called for help and two employees helped him back to bed. He is also stating that he is unable to bare weight on the right side and needs assistance. Educated on the use of walker but refused it at this time. Fall status changed from low to high.
[2024-01-22 15:26] VITALS: BP 139/73; PULSE 102; RESP 18; TEMP 36.8; O2SAT 99
[2024-01-22 16:10] LABS: Glucose, Whole Blood 215 mg/dL (60-115)
[2024-01-22 18:27] LABS: Vancomycin Random 15.2 mcg/mL (15-20)
[2024-01-22 19:05] VITALS: BP 115/56; PULSE 93; RESP 18; TEMP 37.3; O2SAT 96
[2024-01-22] MEDS: Enoxaparin Sodium 40 MG/0.4 ML SYRINGE SUBCUT (19:05)
[2024-01-22] MEDS: Atorvastatin Calcium 20 MG TABLET PO (19:05)
[2024-01-22] MEDS: Acetaminophen 325 MG TABLET 650 MG PO (19:07)
[2024-01-22] MEDS: Melatonin 3 MG TABLET 6 MG PO (19:08)
[2024-01-22 19:58] LABS: Glucose, Whole Blood 177 mg/dL (60-115)
[2024-01-23] VITALS (7 sets, daily range): BP systolic 109–142; BP diastolic 55–71; PULSE 86–99; RESP 16–18; TEMP 36.6–37.2; O2SAT 95–98
[2024-01-23] MEDS: Piperacillin Sodium/Tazobactam 4.5 GM in 0.9 % Sodium Chloride 100 ML IV ×4 (02:51→20:16)
[2024-01-23] MEDS: Morphine Sulfate 4 MG/ML CARTRIDGE IVPUSH ×3 (03:37→17:44)
[2024-01-23 06:08] LABS: Creatinine Clr Calc Pharmacy 89.4; Estimated Glomerular Filt Rate > 60
--- NOTE | 2024-01-23 06:25 | PC.NURSE ---
POC taken at 0625 per patient request. brought him breakfast and pt requested POC prior to eating.
[2024-01-23 06:26] LABS: Glucose, Whole Blood 146 mg/dL (60-115)
--- NOTE | 2024-01-23 06:51 | PC.NURSE ---
Patient refused bed alarm at 0645 this morning and was shut off. at bedside and aware that patient reported fall 2 nights ago. Patient and educated on safety precautions and encouraged to keep bed alarm on. Patient did not want this and agreed to ring if he needs to get OOB, which he was cooperative with overnight while bed alarm was on. Currently he just wants to dangle legs, which would set of bed alarm. He stands to use urinal and is somewhat unsteady, also has large bandage on foot and cannot put slipper sock over bandage.
[2024-01-23] MEDS: 0.9 % Sodium Chloride Flush 3 ML SYRINGE IVFLUSH ×2 (07:59→16:06)
--- NOTE | 2024-01-23 08:23 | HO.POSTANES ---
Post Anesthesia Evaluation Post Anesthesia Evaluation Date of Service: 01/23/24 Vital Signs: Vital Signs Temp Pulse Resp BP Pulse Ox O2 Del Method 01/23/24 07:19 98.1 F 99 16 118/63 98 Room Air 01/23/24 03:00 97.8 F 93 18 142/71 H 98 Room Air Anesthesia: General LMA Mental Status: Awake Pain Control: Satisfactory Nausea/Vomiting: None Hydration: Adequate Anesthesia-Related Issues: No Anes. Related Issues
[2024-01-23] MEDS: amLODIPine Besylate 10 MG TABLET PO (08:28)
[2024-01-23] MEDS: vancomycin HCL 1,250 MG in 0.9 % Sodium Chloride 250 ML 166.66 MG IV ×2 (08:28→21:05)
[2024-01-23] MEDS: lisinopriL 10 MG TABLET PO (08:29)
[2024-01-23] MEDS: Aspirin Enteric Coated 81 MG TABLET.DR PO (08:29)
[2024-01-23 11:26] LABS: Glucose, Whole Blood 239 mg/dL (60-115)
--- NOTE | 2024-01-23 11:36 | P.DS_ITS ---
DS: Providers Provider Date of Service: 01/31/24 <Radha Jones NP - Last Filed: 01/31/24 08:50> Date of admission: 01/16/24 20:18 <Radha Jones NP - Last Filed: 01/31/24 08:50> Primary care physician: Vikash Pompa PA-C <Radha Jones NP - Last Filed: 01/31/24 08:50> Consults: 01/16/24 20:24 Consult to Vascular Surgery Routine Consulting Provider[place] [facility] [place] [facility] Reason for consultation: right foot infection ; recent 2nd toe amputation <Radha Jones NP - Last Filed: 01/31/24 08:50> DS: Diagnosis Discharge Diagnosis (1) PAD (peripheral artery disease): Status: Acute <Radha Jones NP - Last Filed: 01/31/24 08:50> (2) Cellulitis: Status: Acute <Radha Jones NP - Last Filed: 01/31/24 08:50> DS: Summary Hospital Course Hospital Course: History and physical as per admitting provider. This is a 73-year-old male with pertinent history of peripheral vascular disease status post right 2nd toe amputation, non insulin-dependent diabetes mellitus, essential hypertension, mixed hyperlipidemia, history of CVA who presents to the emergency department for concerns of right foot infection. Patient was admitted on 12/21/2023 for dry gangrene of right 2nd toe with cellulitis and discharged on 12/20 with p.o. antibiotics. Patient underwent right 2nd toe amputation on 01/[address] Simpson. Patient states that dressing was removed on 01/12/2024 and since the removal of dressing, he has noticed foul-smelling purulent drainage from the amputation site. He has associated chills and fever 101.5 noted on 01/14/2024. No chest discomfort, palpitations, shortness of breath, abdominal pain, changes in urinary or bowel habits. In the emergency department, patient was initiated on empiric IV antibiotics 73-year-old man treated for permanent cellulitis secondary to diabetic foot infection. Status post initial amputation in 01/09/2024 where his 2nd toe was removed. He then underwent right TMA on 01/20/2024 as per vascular surgery. He was treated with IV vancomycin and Zosyn. Duplex study showing no significant stenosis or occlusion. Patient wound however did not seem to improve and actually become necrotic therefore he was status post BKA on 01/26/2024. Plan is for discharge with services. Patient is in agreement. Follow-up with vascular surgery outpatient. Wound care upon discharge: Adaptic, 4x4 and Kerlix wrap to be changed 3 times a week. Please call Dr. Simpson at [phone] for 2 week follow up for suture and staple removal Diabetes mellitus type 2. Continue metformin Hypertension. Continue Norvasc and lisinopril History of CVA. Continue aspirin and statin Normocytic anemia. Hemoglobin above transfusion threshold <Radha Jones NP - Last Filed: 01/31/24 08:50> Time Attestation Discharge Coordination Time (in mins): 45 <Honorio García MD - Last Filed: 01/24/24 07:37> Quality: Safe Use of Opioids Does Pt have an Active Cancer Diagnosis on the Problem List?: No <Honorio García MD - Last Filed: 01/24/24 07:37> Quality: Stroke Does the patient have a stroke diagnosis?: No <Honorio García MD - Last Filed: 01/24/24 07:37> Physical Exam 2 Vital Signs: Vital Signs: Last Vital Signs Temp 98.1 F 01/23/24 07:19 Pulse 99 01/23/24 07:19 Resp 16 01/23/24 07:19 BP 118/63 01/23/24 08:29 Pulse Ox 98 01/23/24 07:19 O2 Del Method Room Air 01/23/24 07:19 O2 Flow Rate 2 01/20/24 14:17 BMI result Body Mass Index 24.2 <Radha Jones NP - Last Filed: 01/31/24 08:50> Appearing in no acute distress head is normocephalic atraumatic eyes pupils are PERRLA sclera is anicteric mouth throat mucous membranes are intact and moist neck is supple no lymphadenopathy, no JVD noted lung sounds are clear to auscultation heart regular rate rhythm, clear S1, S2 positive bowel sounds, abdomen is soft, nontender neuro patient is alert x3, no focal deficits Right TMA with hematoma, s/p BKA Prior to BKA (TMA) <Radha Jones NP - Last Filed: 01/31/24 08:50> DS: Data Data Completed and Pending Completed studies during hospitalization [Text1]: Procedures Plain Radiography of Aorta and Bilateral Lower Extremity Arteries using Low Osmolar Contrast (12/19/23) <Radha Jones NP - Last Filed: 01/31/24 08:50> Pending studies at discharge: Pending at discharge 01/20/24 13:33 Surgical [PTH] Routine <Radha Jones NP - Last Filed: 01/31/24 08:50> Labs on day of discharge: Laboratory Results - last 24 hr 01/22/24 01/22/24 01/22/24 16:00 18:05 19:54 Hold Purple Top Creatinine Estim Creat Clear Calc Estimated GFR POC Glucose 215 H 177 H Random Vancomycin 15.2 01/23/24 01/23/24 01/23/24 05:31 06:20 11:22 Hold Purple Top SEE NOTE Creatinine 0.76 Estim Creat Clear Calc 89.4 Estimated GFR > 60 POC Glucose 146 H 239 H Random Vancomycin <Radha Jones NP - Last Filed: 01/31/24 08:50> Discharge Plan Discharge Anticipated Discharge Date/Time: 01/31/24 08:47 <Radha Jones NP - Last Filed: 01/31/24 08:50> Patient Disposition: Home Health Service <Radha Jones NP - Last Filed: 01/31/24 08:50> Discharge Diagnosis: Purulence cellulitis secondary to diabetic foot infection Right transmetatarsal amputation Right BKA <Radha Jones NP - Last Filed: 01/31/24 08:50> Purulence cellulitis secondary to diabetic foot infection Right transmetatarsal amputation Right BKA <Honorio García MD - Last Filed: 01/24/24 07:37> Referrals: [facility] [Outside] - 3-5 Days ([facility] will call you to schedule visits) Vikash Pompa PA-C [Primary Care Provider] - 1 Week Tj Simpson MD [Physician] - 1 Week <Radha Jones NP - Last Filed: 01/31/24 08:50> Discharge Medications: New oxycodone 10 mg tablet 10 mg PO Q8H PRN (Reason: pain) Qty: 12 0RF Rx Instructions: Partial Fill upon patient request. (DME) Wheel chair Kit See Rx Instructions .Route Qty: 1 0RF Rx Instructions: As directed Continued aspirin 81 mg tablet,delayed release (DR/EC) 81 mg PO DAILY 90 Days Qty: 90 4RF (DME) blood-glucose meter [FreeStyle Lite Meter] Kit See Rx Instructions .Route Qty: 1 0RF Rx Instructions: As directed tests 4 X/day (DME) FreeStyle Lite Strips Strip See Rx Instructions .Route Qty: 100 4RF Rx Instructions: As directed tests 4 X/day metformin 1,000 mg tablet 1,000 mg PO BID 90 Days Qty: 180 1RF Hold Instructions: Resume on 12/23/23. (DME) walker Misc See Rx Instructions .MEDSUPPLY Qty: 1 0RF Rx Instructions: Folding Front wheeled walker (DME) walker Misc See Rx Instructions .MEDSUPPLY Qty: 1 0RF Rx Instructions: Folding Front wheeled walker lisinopril 10 mg tablet 10 mg PO DAILY 90 Days Qty: 90 1RF simvastatin 40 mg tablet 40 mg PO BEDTIME acetaminophen [Tylenol Extra Strength] 500 mg Tablet 500 mg PO Q6H PRN (Reason: Pain) amlodipine 10 mg tablet 10 mg PO DAILY Qty: 90 1RF (DME) Dexcom G7 Sensor Device See Rx Instructions .Route Qty: 3 4RF Rx Instructions: As directed change every 10 days No Action Ozempic 0.25 mg or 0.5 mg (2 mg/3 mL) pen injector 0.5 mg subcut QWEEK <Radha Jones NP - Last Filed: 01/31/24 08:50> Discharge Orders: Discharge Order (Routine); Ordered 01/31/24 Ordered By: Radha Jones <Radha Jones NP - Last Filed: 01/31/24 08:50> Diet: Advance to usual diet <Radha Jones NP - Last Filed: 01/31/24 08:50> Advance to usual diet <Honorio García MD - Last Filed: 01/24/24 07:37> Activity on Discharge: As tolerated <Radha Jones NP - Last Filed: 01/31/24 08:50> As tolerated <Honorio García MD - Last Filed: 01/24/24 07:37> Stand Alone Forms: Patient Portal Discharge page <Radah Jones NP - Last Filed: 01/31/24 08:50> Print Language: Czech <Radha Jones NP - Last Filed: 01/31/24 08:50> Activity Restrictions/Additional Instructions: Wound care upon discharge: Adaptic, 4x4 and Kerlix wrap to be changed 3 times a week. Please call Dr. Simpson at [phone] for 2 week follow up for suture and staple removal <Radha Jones NP - Last Filed: 01/31/24 08:50> Care Plan Goals: Complete antibiotic course No toe-touch weight-bearing, may use heel <Radha Jones NP - Last Filed: 01/31/24 08:50> Health Concerns: Purulence cellulitis secondary to diabetic foot infection Right transmetatarsal amputation Right BKA <Radha Jones NP - Last Filed: 01/31/24 08:50> Plan of Treatment: Follow-up with vascular surgery outpatient Take all medications as prescribed <Radha Jones NP - Last Filed: 01/31/24 08:50> Assessment: See discharge summary <Radha Jones NP - Last Filed: 01/31/24 08:50>
[2024-01-23] MEDS: Insulin Lispro 100 UNIT/ML 3 ML VIAL SUBCUT ×3 (11:45→20:15)
--- NOTE | 2024-01-23 12:07 | MHC.CM.PN ---
Addendum entered by Ashanti Peter RN 01/23/24 15:25: Patient rec'd one bed offer from [facility]. Patient accepts. [facility] submitting for auth. CM will continue to follow. Original Note: EMR reviewed. Per MD rounds patient is medically cleared for dc. PT and OT recommending acute rehab. CM reviewed recommendation w/ patient and spouse who are agreeable to plan. [facility]st choice is [facility]. Agreed to referrals for all 3 local [facility]'s. Referrals placed, awaiting responses. IMM delivered. CM will continue to follow.
--- NOTE | 2024-01-23 12:24 | HO.VASCPN ---
Subjective Subjective Date of Service: 01/23/24 Patient reports: no new complaints and feels better Interval history: Very pleasant 73-year-old gentleman for follow-up regarding transmetatarsal amputation. No events over the past weekend. Now for routine postoperative follow-up. Physical Exam Vital Signs: Vital Signs: Last Vital Signs Temp 98.1 F 01/23/24 07:19 Pulse 99 01/23/24 07:19 Resp 16 01/23/24 07:19 BP 118/63 01/23/24 08:29 Pulse Ox 98 01/23/24 07:19 O2 Del Method Room Air 01/23/24 07:19 O2 Flow Rate 2 01/20/24 14:17 BMI result Body Mass Index 24.2 Const: General: cooperative, healthy appearing and no acute distress Orientation/consciousness: oriented to person, oriented to place and oriented to time HEENT: Head: Yes normal to inspection Neck: Carotids: no bruits Chest: Chest palpation & inspection: normal inspection of the chest Resp: Effort & Inspection: normal respiratory effort and able to speak in complete sentences Auscultation: clear to auscultation bilaterally Cardio: Rate: regular rate Heart sounds: S1 normal heart sound present and S2 normal heart sound present GI: Inspection: Yes normal to inspection Skin: Other: Trans met site poorly healing. Poor take on flap. Nearly 50% necrosed. General skin exam: no rashes or lesions noted Wounds: no wounds Neuro: General: oriented to person, oriented to place, oriented to time and CN's II-XI intact bilaterally Extrem: General: Yes normal to inspection, Yes full ROM and Yes no clubbing, cyanosis or edema Psych: Appearance: grossly normal and well kempt Speech and movement: Normal speech and movement present Affect: normal affect Progress Note: A&P Assessment and plan (1) PAD (peripheral artery disease): Status: Acute Assessment and Plan: In short patient is status post transmetatarsal amputation. Appears to be doing well from a pain standpoint. Unfortunately the flap is poorly healing. There is about a 50% take. I would like to conservatively manage this at the current time. Will plan for p.o. antibiotics and physical therapy. He is stable from my perspective for discharge. Can follow up with us as an outpatient for suture and staple removal and will closely observe that flap. Thank you for allowing us to assist in his care. If there are any questions or concerns please do not hesitate to contact us Time Spent With Patient Time: Total time managing care of this patient today ____ minutes. Procedures Date of Service Date of Service: 01/23/24 Quality Stroke Does the patient have a stroke diagnosis?: No VTE Prior VTE?: No VTE Risk Level:: Medical - moderate - high VTE Device Contraindication: Treatment Not Indicated VTE Drug Contraindication: N/A - Med Ordered
--- NOTE | 2024-01-23 12:48 | P.PNIM_ITS ---
Subjective Subjective Date of Service: 01/23/24 Interval History: Seen and examined this morning Follow-up for nonhealing foot wound s/p tma POD2 No overnight events, no specific complaints at this time Review of Systems Review of Systems: Yes all other systems are reviewed and are negative Physical Exam 2 Vital Signs: Vital Signs: Last Vital Signs Temp 98.1 F 01/23/24 07:19 Pulse 99 01/23/24 07:19 Resp 16 01/23/24 07:19 BP 118/63 01/23/24 08:29 Pulse Ox 98 01/23/24 07:19 O2 Del Method Room Air 01/23/24 07:19 O2 Flow Rate 2 01/20/24 14:17 BMI result Body Mass Index 24.2 Appearing in no acute distress head is normocephalic atraumatic eyes pupils are PERRLA sclera is anicteric mouth throat mucous membranes are intact and moist neck is supple no lymphadenopathy, no JVD noted lung sounds are clear to auscultation heart regular rate rhythm, clear S1, S2 positive bowel sounds, abdomen is soft, nontender neuro patient is alert x3, no focal deficits Objective Data Active Medications Acetaminophen (Acetaminophen 325 Mg Tablet) 650 mg PO Q6H PRN PRN Reason: Pain, Mild (Pain Scale 1-3) Last Admin: 01/22/24 19:07 Dose: 650 mg Documented By: SAMI Amlodipine Besylate (Amlodipine Besylate 10 Mg Tablet) 10 mg PO DAILY [facility]; Protocol Last Admin: 01/23/24 08:28 Dose: 10 mg Documented By: ERICA Aspirin (Aspirin Enteric Coated 81 Mg Tablet.) 81 mg PO DAILY [facility] Last Admin: 01/23/24 08:29 Dose: 81 mg Documented By: ERICA Atorvastatin Calcium (Atorvastatin Calcium 20 Mg Tablet) 20 mg PO BEDTIME [facility] Last Admin: 01/22/24 19:05 Dose: 20 mg Documented By: SAMI Docusate Sodium (Docusate Sodium 100 Mg Capsule) 100 mg PO BID PRN PRN Reason: Constipation Last Admin: 01/22/24 08:36 Dose: 100 mg Documented By: ERICA Enoxaparin Sodium (Enoxaparin Sodium 40 Mg/0.4 Ml Syringe) 40 mg SUBCUT Q24H [facility] Last Admin: 01/22/24 19:05 Dose: 40 mg Documented By: SAMI Glucose (Glucose Gel 15 Gm Gel..Gram.) 15 gm PO Q15M PRN; Protocol PRN Reason: per Hypoglycemia Standing Ord. Dextrose (D10) 250 mls @ 750 mls/hr IV Q15M PRN; Protocol PRN Reason: per Hypoglycemia Standing Ord. Vancomycin HCl 1,250 mg/ (Sodium Chloride) 250 mls @ 166.667 mls/hr IV Q12H [facility] Last Infusion: 01/23/24 10:29 Dose: Infused Documented By: ERICA Piperacillin Sod/Tazobactam (Sod 4.5 gm/ Sodium Chloride) 100 mls @ 200 mls/hr IV Q6H [facility] Last Infusion: 01/23/24 08:33 Dose: Infused Documented By: ERICA Insulin Human Lispro (Insulin Lispro 100 Unit/Ml 3 Ml Vial) 0 unit SUBCUT QIDACHS [facility]; Protocol Last Admin: 01/23/24 11:45 Dose: 4 unit Documented By: ERICA Lisinopril (Lisinopril 10 Mg Tablet) 10 mg PO DAILY [facility]; Protocol Last Admin: 01/23/24 08:29 Dose: 10 mg Documented By: ERICA Melatonin (Melatonin 3 Mg Tablet) 6 mg PO BEDTIME PRN PRN Reason: Insomnia Last Admin: 01/22/24 19:08 Dose: 6 mg Documented By: SAMI Morphine Sulfate (Morphine Sulfate 4 Mg/Ml Cartridge) 4 mg IVPUSH Q6H PRN; Protocol PRN Reason: Pain, Severe (Pain Scale 7-10) Last Admin: 01/23/24 12:16 Dose: 4 mg Documented By: ERICA Ondansetron HCl (Ondansetron Hcl 4 Mg/2 Ml Vial) 4 mg IVPUSH Q8H PRN PRN Reason: Nausea and Vomiting Pharmacy Consult (Consult Rx Vancomycin Dosing) 1 each MISCELLANE DAILY PRN PRN Reason: Consult order Sodium Chloride (0.9 % Sodium Chloride Flush 3 Ml Syringe) [facility] Last Admin: 01/23/24 07:59 Dose: 3 ml Documented By: ERICA Labs 01/22/24 06:10 01/23/24 05:31 Labs: Laboratory Results - last 24 hr 01/22/24 01/22/24 01/22/24 16:00 18:05 19:54 Hold Purple Top Estim Creat Clear Calc Estimated GFR POC Glucose 215 H 177 H Random Vancomycin 15.2 01/23/24 01/23/24 01/23/24 05:31 06:20 11:22 Hold Purple Top SEE NOTE Estim Creat Clear Calc 89.4 Estimated GFR > 60 POC Glucose 146 H 239 H Random Vancomycin Assessment and Plan (1) PAD (peripheral artery disease): Status: Acute (2) Cellulitis: Status: Acute Plan This is a 73-year-old male with pertinent history of peripheral vascular disease status post right 2nd toe amputation, non insulin-dependent diabetes mellitus, essential hypertension, mixed hyperlipidemia, history of CVA who presents to the emergency department for concerns of right foot infection. Purulent cellulitis and diabetic foot infection of right foot Underwent amputation of right 2nd toe on 01/09/[address] Sipmson. Now s/p R TMA 01/19 continue vanco and zosyn for now Duplex study showing no significant stenosis or occlusion Vascular surgery> follow up in office o/p [id number]-hdroszibk type 2 diabetes mellitus with hyperglycemia ss, ada diet hold metformin Essential hypertension Continue home antihypertensives, norvasc and lisinopril Acute lactic acidosis due to metformin use. No sepsis History of CVA On aspirin and statin Normocytic anemia Hemoglobin above transfusion threshold DVT prophylaxis: Jean Attending Dr. García Full code DISPO Acute rehab when bed available continue hospital stay for IV antibiotics (as above) s/p R tma with expert consultation Quality Stroke Does the patient have a stroke diagnosis?: No VTE Prior VTE?: No VTE Risk Level:: Medical - moderate - high VTE Device Contraindication: Treatment Not Indicated VTE Drug Contraindication: N/A - Med Ordered
[2024-01-23 16:26] LABS: Glucose, Whole Blood 194 mg/dL (60-115)
[2024-01-23 18:24] LABS: Vancomycin Random 15.9 mcg/mL (15-20)
[2024-01-23] MEDS: Enoxaparin Sodium 40 MG/0.4 ML SYRINGE SUBCUT (20:15)
[2024-01-23] MEDS: Atorvastatin Calcium 20 MG TABLET PO (20:15)
[2024-01-23 20:24] LABS: Glucose, Whole Blood 266 mg/dL (60-115)
[2024-01-24] MEDS: 0.9 % Sodium Chloride Flush 3 ML SYRINGE IVFLUSH ×4 (00:17→19:30)
[2024-01-24 01:10] VITALS: RESP 18
[2024-01-24] MEDS: Morphine Sulfate 4 MG/ML CARTRIDGE IVPUSH ×2 (01:10→11:51)
[2024-01-24] MEDS: Piperacillin Sodium/Tazobactam 4.5 GM in 0.9 % Sodium Chloride 100 ML IV ×4 (01:30→19:30)
[2024-01-24 06:35] LABS: Creatinine Clr Calc Pharmacy 84.9; Estimated Glomerular Filt Rate > 60
[2024-01-24 07:00] VITALS: BP 146/75; PULSE 82; RESP 18; TEMP 36.3; O2SAT 98
[2024-01-24 07:38] LABS: Glucose, Whole Blood 130 mg/dL (60-115)
[2024-01-24 08:54] VITALS: BP 146/75
[2024-01-24] MEDS: Docusate Sodium 100 MG CAPSULE PO (08:54)
[2024-01-24] MEDS: lisinopriL 10 MG TABLET PO (08:54)
[2024-01-24] MEDS: Aspirin Enteric Coated 81 MG TABLET.DR PO (08:54)
[2024-01-24] MEDS: amLODIPine Besylate 10 MG TABLET PO (08:54)
[2024-01-24] MEDS: vancomycin HCL 1,250 MG in 0.9 % Sodium Chloride 250 ML 166.66 MG IV ×2 (09:43→20:03)
[2024-01-24 11:43] LABS: Glucose, Whole Blood 219 mg/dL (60-115)
[2024-01-24] MEDS: Insulin Lispro 100 UNIT/ML 3 ML VIAL SUBCUT ×3 (11:56→21:37)
--- NOTE | 2024-01-24 13:22 | HO.PM.IMPN ---
Subjective Subjective Date of Service: 01/24/24 Interval History: Seen and examined this morning Follow-up for nonhealing foot wound s/p tma POD2 No overnight events, no specific complaints at this time Review of Systems Review of Systems: Yes all other systems are reviewed and are negative Physical Exam Vital Signs: Vital Signs: Last Vital Signs Temp 97.4 F 01/24/24 07:00 Pulse 82 01/24/24 07:00 Resp 18 01/24/24 07:00 BP 146/75 H 01/24/24 08:54 Pulse Ox 98 01/24/24 07:00 O2 Del Method Room Air 01/24/24 07:00 O2 Flow Rate 2 01/20/24 14:17 BMI result Body Mass Index 24.2 Appearing in no acute distress lung sounds are clear to auscultation heart regular rate rhythm, clear S1, S2 positive bowel sounds, abdomen is soft, nontender neuro patient is alert x3, no focal deficits Objective Data Active Medications Acetaminophen (Acetaminophen 325 Mg Tablet) 650 mg PO Q6H PRN PRN Reason: Pain, Mild (Pain Scale 1-3) Last Admin: 01/22/24 19:07 Dose: 650 mg Documented By: SAMI Amlodipine Besylate (Amlodipine Besylate 10 Mg Tablet) 10 mg PO DAILY [facility]; Protocol Last Admin: 01/24/24 08:54 Dose: 10 mg Documented By: JOB Aspirin (Aspirin Enteric Coated 81 Mg Tablet.) 81 mg PO DAILY [facility] Last Admin: 01/24/24 08:54 Dose: 81 mg Documented By: JOB Atorvastatin Calcium (Atorvastatin Calcium 20 Mg Tablet) 20 mg PO BEDTIME [facility] Last Admin: 01/23/24 20:15 Dose: 20 mg Documented By: ODETTE Docusate Sodium (Docusate Sodium 100 Mg Capsule) 100 mg PO BID PRN PRN Reason: Constipation Last Admin: 01/24/24 08:54 Dose: 100 mg Documented By: JOB Enoxaparin Sodium (Enoxaparin Sodium 40 Mg/0.4 Ml Syringe) 40 mg SUBCUT Q24H [facility] Last Admin: 01/23/24 20:15 Dose: 40 mg Documented By: ODETTE Glucose (Glucose Gel 15 Gm Gel..Gram.) 15 gm PO Q15M PRN; Protocol PRN Reason: per Hypoglycemia Standing Ord. Dextrose (D10) 250 mls @ 750 mls/hr IV Q15M PRN; Protocol PRN Reason: per Hypoglycemia Standing Ord. Vancomycin HCl 1,250 mg/ (Sodium Chloride) 250 mls @ 166.667 mls/hr IV Q12H [facility] Last Infusion: 01/24/24 11:14 Dose: Infused Documented By: JOB Piperacillin Sod/Tazobactam (Sod 4.5 gm/ Sodium Chloride) 100 mls @ 200 mls/hr IV Q6H [facility] Last Infusion: 01/24/24 09:25 Dose: Infused Documented By: JOB Insulin Human Lispro (Insulin Lispro 100 Unit/Ml 3 Ml Vial) 0 unit SUBCUT QIDACHS [facility]; Protocol Last Admin: 01/24/24 11:56 Dose: 4 unit Documented By: JOB Lisinopril (Lisinopril 10 Mg Tablet) 10 mg PO DAILY [facility]; Protocol Last Admin: 01/24/24 08:54 Dose: 10 mg Documented By: JOB Melatonin (Melatonin 3 Mg Tablet) 6 mg PO BEDTIME PRN PRN Reason: Insomnia Last Admin: 01/22/24 19:08 Dose: 6 mg Documented By: SAMI Morphine Sulfate (Morphine Sulfate 4 Mg/Ml Cartridge) 4 mg IVPUSH Q6H PRN; Protocol PRN Reason: Pain, Severe (Pain Scale 7-10) Last Admin: 01/24/24 11:51 Dose: 4 mg Documented By: JOB Ondansetron HCl (Ondansetron Hcl 4 Mg/2 Ml Vial) 4 mg IVPUSH Q8H PRN PRN Reason: Nausea and Vomiting Pharmacy Consult (Consult Rx Vancomycin Dosing) 1 each MISCELLANE DAILY PRN PRN Reason: Consult order Sodium Chloride (0.9 % Sodium Chloride Flush 3 Ml Syringe) 3 ml IVFLUSH QSHIFT [facility] Last Admin: 01/24/24 08:55 Dose: 3 ml Documented By: JOB Labs 01/22/24 06:10 01/24/24 05:59 Labs: Laboratory Results - last 24 hr 01/23/24 01/23/24 01/23/24 16:18 18:04 20:06 Estim Creat Clear Calc Estimated GFR POC Glucose 194 H 266 H Random Vancomycin 15.9 05/14/24 05/14/24 05/14/24 05:59 07:17 11:38 Estim Creat Clear Calc 84.9 Estimated GFR > 60 POC Glucose 130 H 219 H Random Vancomycin Assessment and Plan (1) PAD (peripheral artery disease): Status: Acute (2) Cellulitis: Status: Acute Plan This is a 73-year-old male with pertinent history of peripheral vascular disease status post right 2nd toe amputation, non insulin-dependent diabetes mellitus, essential hypertension, mixed hyperlipidemia, history of CVA who presents to the emergency department for concerns of right foot infection. Purulent cellulitis and diabetic foot infection of right foot Underwent amputation of right 2nd toe on 01/09/[address] Simpson. Now s/p R TMA 01/19 continue vanco and zosyn for now Duplex study showing no significant stenosis or occlusion Vascular surgery> follow up in office o/p Wai-szzhigb-rxcoubdlf type 2 diabetes mellitus with hyperglycemia ss, ada diet hold metformin Essential hypertension Continue home antihypertensives, norvasc and lisinopril Acute lactic acidosis due to metformin use. No sepsis History of CVA On aspirin and statin Normocytic anemia Hemoglobin above transfusion threshold DVT prophylaxis: Jean Attending Dr. García Full code DISPO Acute rehab when bed available continue hospital stay for IV antibiotics (as above) s/p R tma with expert consultation Quality Stroke Does the patient have a stroke diagnosis?: No VTE Prior VTE?: No VTE Risk Level:: Medical - moderate - high VTE Device Contraindication: Treatment Not Indicated VTE Drug Contraindication: N/A - Med Ordered
--- NOTE | 2024-01-24 14:55 | PC.NURSE ---
Per Vascular Surgery mendy Simpson to change dressing. Old dressing removed, small amount of sero/scott drainage noted. Xeroform and kerlix roll applied using sterile technique. Pt tolerated well, denies pain at time of dressing change.
[2024-01-24 15:00] VITALS: BP 123/60; PULSE 89; RESP 18; TEMP 36.7; O2SAT 96
--- NOTE | 2024-01-24 15:00 | MHC.CM.PN ---
[facility] requesting peer to peer, which was completed, but request for AR was denied. CM discussed w/ patient and , not agreeable to STR. Prefer to go home w/ new [facility] services tomorrow 01/24. [facility] updated on dc. CALL CENTER DISPATCHER aware.
[2024-01-24 16:20] LABS: Glucose, Whole Blood 233 mg/dL (60-115)
[2024-01-24] MEDS: Enoxaparin Sodium 40 MG/0.4 ML SYRINGE SUBCUT (19:30)
[2024-01-24] MEDS: Atorvastatin Calcium 20 MG TABLET PO (19:30)
[2024-01-24 19:32] VITALS: BP 137/67; PULSE 97; RESP 18; TEMP 36.7; O2SAT 97
[2024-01-24 20:25] LABS: Glucose, Whole Blood 236 mg/dL (60-115)
[2024-01-25] MEDS: Piperacillin Sodium/Tazobactam 4.5 GM in 0.9 % Sodium Chloride 100 ML IV ×4 (01:46→20:32)
[2024-01-25 03:00] VITALS: BP 139/72; PULSE 84; RESP 16; TEMP 36.8; O2SAT 96
[2024-01-25] MEDS: Morphine Sulfate 4 MG/ML CARTRIDGE IVPUSH ×3 (05:43→18:05)
[2024-01-25 06:32] LABS: Estimated Glomerular Filt Rate > 60; Vancomycin Trough 15.4 mcg/mL (10.0-20.0)
--- NOTE | 2024-01-25 06:40 | HE.PHANOTE ---
RE: VANCO DOSING Random came back as 15.4. Continue with dose of 1250 mg q12h. Next random scheduled for 01/26/24 @1800.
[2024-01-25 07:14] VITALS: BP 143/78; PULSE 86; RESP 16; TEMP 36.2; O2SAT 98
[2024-01-25 07:27] LABS: Glucose, Whole Blood 155 mg/dL (60-115)
[2024-01-25] MEDS: 0.9 % Sodium Chloride Flush 3 ML SYRINGE IVFLUSH ×2 (07:38→16:48)
[2024-01-25] MEDS: Insulin Lispro 100 UNIT/ML 3 ML VIAL SUBCUT ×4 (07:43→21:07)
[2024-01-25 07:44] VITALS: BP 143/78
[2024-01-25] MEDS: Aspirin Enteric Coated 81 MG TABLET.DR PO (07:44)
[2024-01-25] MEDS: amLODIPine Besylate 10 MG TABLET PO (07:44)
[2024-01-25] MEDS: lisinopriL 10 MG TABLET PO (07:44)
[2024-01-25] MEDS: vancomycin HCL 1,250 MG in 0.9 % Sodium Chloride 250 ML 166.66 MG IV ×2 (08:11→21:06)
[2024-01-25] MEDS: Docusate Sodium 100 MG CAPSULE PO (08:11)
--- NOTE | 2024-01-25 08:50 | MHC.CM.PN ---
Addendum entered by Ashanti Peter RN 01/25/24 09:46: Per RN, discharge cancelled by Dr. Simpson. CM will continue to follow. Addendum entered by Ashanti Peter RN 01/25/24 08:54: IMM was delivered 01/22 Original Note: EMR reviewed. Per [employer] TECHNICIAN, patient is medically cleared for dc home w/ services. BLS transportation scheduled for 10am. RN, [employer] TECHNICIAN, patient and aware. [facility] aware of dc.
--- NOTE | 2024-01-25 08:52 | W.MHC.F2F ---
Service Date Service Date: 01/25/24 Encounter Date of encounter: 01/25/24 Reasons for Services Signs and symptoms assessed: Transmetatarsal amputation Reason for prison: CV/CP assess and/or care and wound care (Wound care upon discharge: xeroform, 4x4 and Kerlix wrap to be changed 3 times a week. ) Reason for physical therapy: home safety and mobility Homebound: Leaving the home is medically contraindicated at this time without the asist of a device and/or another person due th the listed conditions above and below. Reason homebound: unsteady gait / fall risk, poor balance / fall risk and other (Post surgical transmetatarsal amputation) Certification: Based on the above findings, I certify that this patient is confined to the home and needs intermittent prison care, physical therapy and/or speech therapy, or continues to need occupational therapy. The patient is under my care, and I have initiated the establishment of the plan of care. The patient will be followed by a physician who will periodically review the plan of care. Time Spent With Patient Time: Total time managing care of this patient today ____ minutes.
--- NOTE | 2024-01-25 10:26 | HO.VASCPN ---
Subjective Subjective Date of Service: 01/25/24 Patient reports: no new complaints Interval history: 73-year-old gentleman seen and examined. He would undergone transmetatarsal amputation. Flap has been poorly healing. It has been progressing the getting worse. He is now for follow-up. Physical Exam Vital Signs: Vital Signs: Last Vital Signs Temp 97.2 F 01/25/24 07:14 Pulse 86 01/25/24 07:14 Resp 16 01/25/24 07:14 BP 143/78 H 01/25/24 07:44 Pulse Ox 98 01/25/24 07:14 O2 Del Method Room Air 01/25/24 07:14 O2 Flow Rate 2 01/20/24 14:17 BMI result Body Mass Index 24.2 Const: General: cooperative, healthy appearing and no acute distress Orientation/consciousness: oriented to person, oriented to place and oriented to time HEENT: Head: Yes normal to inspection Neck: Carotids: no bruits Chest: Chest palpation & inspection: normal inspection of the chest Resp: Effort & Inspection: normal respiratory effort and able to speak in complete sentences Auscultation: clear to auscultation bilaterally Cardio: Rate: regular rate Heart sounds: S1 normal heart sound present and S2 normal heart sound present GI: Inspection: Yes normal to inspection Skin: Other: Right foot transmetatarsal flap necrosis. Greater than 50% gone General skin exam: no rashes or lesions noted Wounds: amputation site and wounds noted Neuro: General: oriented to person, oriented to place, oriented to time and CN's II-XI intact bilaterally Extrem: General: Yes normal to inspection, Yes full ROM and Yes no clubbing, cyanosis or edema Psych: Appearance: grossly normal and well kempt Speech and movement: Normal speech and movement present Affect: normal affect Progress Note: A&P Assessment and plan (1) PAD (peripheral artery disease): Status: Acute Assessment and Plan: In short patient has a nonhealing transmetatarsal amputation. Through his hospital course it has progressively gotten worse. It is now greater than 50% of the flap is frankly necrosed. I did discuss these findings with the family. The patient will require right below-knee amputation. Risks benefits complications of the operation were discussed in detail with the patient. Understood and consented. He would like to move forward. was at bedside and she was in agreement as well. Time Spent With Patient Time: Total time managing care of this patient today ____ minutes. Procedures Date of Service Date of Service: 01/25/24 Quality Stroke Does the patient have a stroke diagnosis?: No VTE Prior VTE?: No VTE Risk Level:: Medical - moderate - high VTE Device Contraindication: Treatment Not Indicated VTE Drug Contraindication: N/A - Med Ordered
[2024-01-25 10:58] LABS: Hematocrit 29.7 % (42.0-52.0); Hemoglobin 9.5 g/dl (14.0-18.0); Mean Corpuscular Hemoglobin 28.9 pg (27.0-33.0); Mean Corpuscular Volume 90.3 fL (80.0-98.0); Mean Platelet Volume 9.2 fL (9.4-12.4); Platelet Count 476 X10*3/uL (160-400); Red Blood Count 3.29 X10*6/uL (4.60-5.80); Red Cell Distribution Width 12.4 % (11.0-16.0); White Blood Count 7.6 X10*3/uL (4.8-10.8)
[2024-01-25 11:08] LABS: Anion Gap 13 (12-20); Blood Urea Nitrogen 8 mg/dL (9-16); Calcium 9.1 mg/dL (8.4-10.2); Carbon Dioxide 26 mmol/L (22-29); Chloride 99 mmol/L (96-108); Creatinine Clr Calc Pharmacy 81.9; Estimated Glomerular Filt Rate > 60; Glucose Random 204 mg/dL (60-115); Sodium 134 mmol/L (135-145)
--- NOTE | 2024-01-25 11:20 | HO.PM.IMPN ---
Subjective Subjective Date of Service: 01/25/24 Interval History: Seen and examined this morning Follow-up for nonhealing foot wound No overnight events, no specific complaints at this time Review of Systems Review of Systems: Yes all other systems are reviewed and are negative Physical Exam Vital Signs: Vital Signs: Last Vital Signs Temp 97.2 F 01/25/24 07:14 Pulse 86 01/25/24 07:14 Resp 16 01/25/24 07:14 BP 143/78 H 01/25/24 07:44 Pulse Ox 98 01/25/24 07:14 O2 Del Method Room Air 01/25/24 07:14 O2 Flow Rate 2 01/20/24 14:17 BMI result Body Mass Index 24.2 Appearing in no acute distress lung sounds are clear to auscultation heart regular rate rhythm, clear S1, S2 positive bowel sounds, abdomen is soft, nontender neuro patient is alert x3, no focal deficits Objective Data Active Medications Acetaminophen (Acetaminophen 325 Mg Tablet) 650 mg PO Q6H PRN PRN Reason: Pain, Mild (Pain Scale 1-3) Last Admin: 01/22/24 19:07 Dose: 650 mg Documented By: SAMI Amlodipine Besylate (Amlodipine Besylate 10 Mg Tablet) 10 mg PO DAILY [facility]; Protocol Last Admin: 01/25/24 07:44 Dose: 10 mg Documented By: LOVE Aspirin (Aspirin Enteric Coated 81 Mg Tablet.Dr) 81 mg PO DAILY [facility] Last Admin: 01/25/24 07:44 Dose: 81 mg Documented By: LOVE Atorvastatin Calcium (Atorvastatin Calcium 20 Mg Tablet) 20 mg PO BEDTIME [facility] Last Admin: 01/24/24 19:30 Dose: 20 mg Documented By: CHARLOTTE Docusate Sodium (Docusate Sodium 100 Mg Capsule) 100 mg PO BID PRN PRN Reason: Constipation Last Admin: 01/25/24 08:11 Dose: 100 mg Documented By: LOVE Enoxaparin Sodium (Enoxaparin Sodium 40 Mg/0.4 Ml Syringe) 40 mg SUBCUT Q24H [facility] Last Admin: 01/24/24 19:30 Dose: 40 mg Documented By: CHARLOTTE Glucose (Glucose Gel 15 Gm Gel..Gram.) 15 gm PO Q15M PRN; Protocol PRN Reason: per Hypoglycemia Standing Ord. Dextrose (D10) 250 mls @ 750 mls/hr IV Q15M PRN; Protocol PRN Reason: per Hypoglycemia Standing Ord. Vancomycin HCl 1,250 mg/ (Sodium Chloride) 250 mls @ 166.667 mls/hr IV Q12H [facility] Last Infusion: 01/25/24 09:52 Dose: Infused Documented By: LOVE Piperacillin Sod/Tazobactam (Sod 4.5 gm/ Sodium Chloride) 100 mls @ 200 mls/hr IV Q6H [facility] Last Infusion: 01/25/24 08:14 Dose: Infused Documented By: LOVE Insulin Human Lispro (Insulin Lispro 100 Unit/Ml 3 Ml Vial) 0 unit SUBCUT QIDACHS [facility]; Protocol Last Admin: 01/25/24 07:43 Dose: 2 unit Documented By: LOVE Lisinopril (Lisinopril 10 Mg Tablet) 10 mg PO DAILY [facility]; Protocol Last Admin: 01/25/24 07:44 Dose: 10 mg Documented By: LOVE Melatonin (Melatonin 3 Mg Tablet) 6 mg PO BEDTIME PRN PRN Reason: Insomnia Last Admin: 01/22/24 19:08 Dose: 6 mg Documented By: SAMI Morphine Sulfate (Morphine Sulfate 4 Mg/Ml Cartridge) 4 mg IVPUSH Q6H PRN; Protocol PRN Reason: Pain, Severe (Pain Scale 7-10) Last Admin: 01/25/24 05:43 Dose: 4 mg Documented By: CHARLOTTE Ondansetron HCl (Ondansetron Hcl 4 Mg/2 Ml Vial) 4 mg IVPUSH Q8H PRN PRN Reason: Nausea and Vomiting Pharmacy Consult (Consult Rx Vancomycin Dosing) 1 each MISCELLANE DAILY PRN PRN Reason: Consult order Sodium Chloride (0.9 % Sodium Chloride Flush 3 Ml Syringe) 3 ml IVFLUSH QSHIFT [facility] Last Admin: 01/25/24 07:38 Dose: 3 ml Documented By: LOVE Labs 01/25/24 10:41 01/25/24 10:41 Labs: Laboratory Results - last 24 hr 01/24/24 01/24/24 01/24/24 11:38 16:10 20:15 MCV MCH MCHC RDW Plt Count MPV Absolute Nucleated RBC Nucleated RBC % (auto) Anion Gap Estim Creat Clear Calc Estimated GFR POC Glucose 219 H 233 H 236 H Random Glucose Calcium Vancomycin Trough 01/25/24 01/25/24 01/25/24 05:59 07:16 10:41 MCV 90.3 MCH 28.9 MCHC 32.0 RDW 12.4 Plt Count 476 H MPV 9.2 L Absolute Nucleated RBC 0.000 Nucleated RBC % (auto) 0.0 Anion Gap 13 Estim Creat Clear Calc 86.0 81.9 Estimated GFR > 60 > 60 POC Glucose 155 H Random Glucose 204 H Calcium 9.1 Vancomycin Trough 15.4 Assessment and Plan (1) PAD (peripheral artery disease): Status: Acute (2) Cellulitis: Status: Acute Plan This is a 73-year-old male with pertinent history of peripheral vascular disease status post right 2nd toe amputation, non insulin-dependent diabetes mellitus, essential hypertension, mixed hyperlipidemia, history of CVA who presents to the emergency department for concerns of right foot infection. Purulent cellulitis and diabetic foot infection of right foot Underwent amputation of right 2nd toe on 01/09/24 then R TMA /10 continue vanco and zosyn Duplex study showing no significant stenosis or occlusion Vascular surgery>due to poor healing of right TMA plan for right BKA tomorrow, NPO after midnight [id number] type 2 diabetes mellitus with hyperglycemia ss, ada diet hold metformin Essential hypertension Continue home antihypertensives, norvasc and lisinopril Acute lactic acidosis due to metformin use. No sepsis History of CVA hold asa in light of BKA on statin Normocytic anemia Hemoglobin above transfusion threshold DVT prophylaxis: [employer] Attending Dr. García Full code continue hospital stay for IV antibiotics (as above) s/p R tma and plan for BKA Quality Stroke Does the patient have a stroke diagnosis?: No VTE Prior VTE?: No VTE Risk Level:: Medical - moderate - high VTE Device Contraindication: Treatment Not Indicated VTE Drug Contraindication: N/A - Med Ordered
[2024-01-25 11:21] LABS: Glucose, Whole Blood 176 mg/dL (60-115)
[2024-01-25 15:37] VITALS: BP 123/66; PULSE 89; RESP 18; TEMP 36.8; O2SAT 97
[2024-01-25 15:49] LABS: Glucose, Whole Blood 341 mg/dL (60-115)
[2024-01-25 18:05] VITALS: RESP 19
[2024-01-25 19:32] VITALS: BP 134/64; PULSE 85; RESP 18; TEMP 36.9; O2SAT 97
[2024-01-25 19:54] LABS: Glucose, Whole Blood 250 mg/dL (60-115)
[2024-01-25] MEDS: Enoxaparin Sodium 40 MG/0.4 ML SYRINGE SUBCUT (21:06)
[2024-01-26] VITALS (11 sets, daily range): BP systolic 131–168; BP diastolic 53–88; PULSE 75–104; RESP 16–20; TEMP 36.3–37; O2SAT 95–100
[2024-01-26] MEDS: 0.9 % Sodium Chloride Flush 3 ML SYRINGE IVFLUSH ×4 (01:21→21:10)
[2024-01-26] MEDS: Piperacillin Sodium/Tazobactam 4.5 GM in 0.9 % Sodium Chloride 100 ML IV ×4 (01:21→21:01)
[2024-01-26 06:22] LABS: Estimated Glomerular Filt Rate > 60
[2024-01-26 07:42] LABS: Glucose, Whole Blood 160 mg/dL (60-115)
[2024-01-26] MEDS: Morphine Sulfate 4 MG/ML CARTRIDGE IVPUSH ×5 (07:55→20:59)
[2024-01-26] MEDS: vancomycin HCL 1,250 MG in 0.9 % Sodium Chloride 250 ML 166.67 MG IV ×2 (09:25→21:56)
[2024-01-26] MEDS: amLODIPine Besylate 10 MG TABLET PO (09:25)
[2024-01-26 09:45] LABS: Glucose, Whole Blood 151 mg/dL (60-115)
--- NOTE | 2024-01-26 09:51 | MHC.SHP ---
Pre-Procedural Eval Section A - 24 Hr Update-Section A only Date of Service: 01/26/24 The patient is an INPATIENT: Yes Changes since office visit: Yes Patient answered all questions The patient has been examined within 24 hours of the surgical procedure. The History & Physical has been completed within 30 days and I have reviewed it.: Yes Section B - Complete if H&P > 30 days Chief Complaint: Foot infection Allergies: Allergies Allergy/AdvReac Type Severity Reaction Status Date / Time sitagliptin [From JANUVIA] Allergy Unknown vomitting Verified 01/16/24 15:09 dulaglutide [From Trulicity] AdvReac Intermediate Rash Verified 01/16/24 15:09 pioglitazone [From Actos] AdvReac Intermediate palpatation Verified 01/16/24 15:09 s Plan I have reviewed the history and physical and performed a pertinent physical examination on my patient. No changes have occurred unless specified. Time Spent With Patient Time: Total time managing care of this patient today ____ minutes.
--- NOTE | 2024-01-26 10:19 | PC.NURSE ---
Vancomycin due at 2000 and zosyn due at 1400.will make [employer] aware.
--- NOTE | 2024-01-26 10:50 | PC.NURSE ---
voided in the urinal 300ml clear yellow urine
--- NOTE | 2024-01-26 11:22 | P.CONAN_ITS ---
HPI - Anesthesia Eval Consult details Narrative: 73 yo male patient for Right BKA PMFSH Active Problems Active Problems: All Active Problems Cellulitis (Acute) PAD (peripheral artery disease) (Acute) Dry gangrene (Acute) Pre-op evaluation (Acute) COVID-19 (Acute) Atrial arrhythmia (Acute) Aortic valve sclerosis (Acute) Preoperative cardiovascular examination (Acute) Osteoarthritis of left knee (Acute) PAD (peripheral artery disease) (Acute) Hyperkalemia (Acute) Foot callus (Acute) Hyperlipidemia (Acute) Atypical chest pain (Acute) Elevated TSH (Acute) Eustachian tube dysfunction (Acute) Left ear pain (Acute) Allison onychomycosis (Acute) Other and unspecified hyperlipidemia (Acute) Essential hypertension (Acute) Type 2 diabetes mellitus with unspecified complications (Acute) Precordial chest pain (Acute) HTN (hypertension) (Acute) Nausea & vomiting (Acute) Hospital discharge follow-up (Acute) Type 2 diabetes mellitus (Acute) Past Medical History Medical History Other and unspecified hyperlipidemia Essential hypertension Type 2 diabetes mellitus with unspecified complications Allergic rhinitis Stroke Nausea & vomiting Hospital discharge follow-up Atypical chest pain Diabetes Hyperlipidemia HTN (hypertension) Family History Family History Father No problems noted. Mother Myocardial infarction Sister Diabetes Hypertension Family history of problems with anesthesia: No Surgical History Surgical History Hx of colonoscopy History of Problems with Anesthesia: No Social History Social History Household Members: Spouse Housing: House Do you presently have visiting nurse or other home services: No Alcohol intake: current Alcohol intake frequency: holidays/special occasions only Alcohol type: beer Patient Tobacco Use Status: Never used Tobacco Smoked in Last 30 Days: No e-Cigarette/Vaping Use: Never Used Second Hand Smoke Exposure: No Use of substances other than those prescribed or required for medical reasons: No Currently Displaying Signs/Symptoms of Drug Intoxication Withdrawal: No Have you been hit, kicked, punched, or otherwise hurt by someone within the past year? If so, by whom?: No Do you feel safe in your current relationship?: Yes Is there a partner from a previous relationship who is making you feel unsafe now?: No Are you made to feel afraid or neglected: No Are you DNR?: No Advance Directives: Yes Advance Directives on File: Yes Advance Directives Date on File: 12/22/23 Do you have a plan to hurt others: No Plan Recently lost weight without trying: No Nutrition Risks: No Nutritional Risk Poor oral hygiene: No service: No Current occupational status: retired Cognitive needs: No Hearing needs: No Vision needs: No Meds Allergies Allergy/AdvReac Type Severity Reaction Status Date / Time sitagliptin [From JANUVIA] Allergy Unknown vomitting Verified 01/16/24 15:09 dulaglutide [From Trulicity] AdvReac Intermediate Rash Verified 01/16/24 15:09 pioglitazone [From Actos] AdvReac Intermediate palpatation Verified 01/16/24 15:09 s Active Medications: Current Medications Acetaminophen (Acetaminophen 325 Mg Tablet) 650 mg PO Q6H PRN PRN Reason: Pain, Mild (Pain Scale 1-3) Last Admin: 01/22/24 19:07 Dose: 650 mg Amlodipine Besylate (Amlodipine Besylate 10 Mg Tablet) 10 mg PO DAILY [facility]; Protocol Last Admin: 01/26/24 09:25 Dose: 10 mg Aspirin (Aspirin Enteric Coated 81 Mg Tablet.Dr) 81 mg PO DAILY [facility] Last Admin: 01/25/24 07:44 Dose: 81 mg Atorvastatin Calcium (Atorvastatin Calcium 20 Mg Tablet) 20 mg PO BEDTIME [facility] Last Admin: 01/24/24 19:30 Dose: 20 mg Docusate Sodium (Docusate Sodium 100 Mg Capsule) 100 mg PO BID PRN PRN Reason: Constipation Last Admin: 01/25/24 08:11 Dose: 100 mg Enoxaparin Sodium (Enoxaparin Sodium 40 Mg/0.4 Ml Syringe) 40 mg SUBCUT Q24H [facility] Last Admin: 01/25/24 21:06 Dose: 40 mg Glucose (Glucose Gel 15 Gm Gel..Gram.) 15 gm PO Q15M PRN; Protocol PRN Reason: per Hypoglycemia Standing Ord. Dextrose (D10) 250 mls @ 750 mls/hr IV Q15M PRN; Protocol PRN Reason: per Hypoglycemia Standing Ord. Vancomycin HCl 1,250 mg/ (Sodium Chloride) 250 mls @ 166.667 mls/hr IV Q12H [facility] Last Infusion: 01/26/24 10:58 Dose: Infused Piperacillin Sod/Tazobactam (Sod 4.5 gm/ Sodium Chloride) 100 mls @ 200 mls/hr IV Q6H [facility] Last Infusion: 01/26/24 09:20 Dose: Infused Insulin Human Lispro (Insulin Lispro 100 Unit/Ml 3 Ml Vial) 0 unit SUBCUT QID ACHS [facility]; Protocol Last Admin: 01/26/24 08:04 Dose: Not Given Lisinopril (Lisinopril 10 Mg Tablet) 10 mg PO DAILY [facility]; Protocol Last Admin: 01/26/24 09:26 Dose: Not Given Melatonin (Melatonin 3 Mg Tablet) 6 mg PO BEDTIME PRN PRN Reason: Insomnia Last Admin: 01/22/24 19:08 Dose: 6 mg Morphine Sulfate (Morphine Sulfate 4 Mg/Ml Cartridge) 4 mg IVPUSH Q6H PRN; Protocol PRN Reason: Pain, Severe (Pain Scale 7-10) Last Admin: 01/26/24 07:55 Dose: 4 mg Ondansetron HCl (Ondansetron Hcl 4 Mg/2 Ml Vial) 4 mg IVPUSH Q8H PRN PRN Reason: Nausea and Vomiting Pharmacy Consult (Consult Rx Vancomycin Dosing) 1 each MISCELLANE DAILY PRN PRN Reason: Consult order Sodium Chloride (0.9 % Sodium Chloride Flush 3 Ml Syringe) [facility] Last Admin: 01/26/24 07:55 Dose: 3 ml Home Medications ?Medication ?Instructions ?Recorded ?Confirmed ?Last Taken ?Type simvastatin 40 mg tablet 40 mg PO BEDTIME 12/19/23 01/16/24 01/15/24 History acetaminophen 500 mg tablet 500 mg PO Q6H PRN Pain 01/16/24 01/16/24 Unknown History (Tylenol Extra Strength) semaglutide 0.25 mg or 0.5 mg (2 0.5 mg subcut QWEEK 01/26/24 01/26/24 01/09/24 History mg/3 mL) subcutaneous pen injector (Ozempic) Exam Height,Weight and Vital Signs: Height 5 ft 11 in Weight 78.6 kg Last Vital Signs Temp 97.5 F 01/26/24 07:59 Pulse 87 01/26/24 07:59 Resp 18 01/26/24 07:59 BP 143/68 H 01/26/24 09:25 Pulse Ox 96 01/26/24 07:59 O2 Del Method Room Air 01/26/24 07:59 O2 Flow Rate 2 01/20/24 14:17 Pertinent Lab Results Pertinent Lab Results: Laboratory Tests 01/16/24 01/16/24 01/16/24 16:59 17:06 18:51 WBC 10.4 RBC 3.62 L Hgb 10.6 L Hct 32.5 L MCV 89.8 MCH 29.3 MCHC 32.6 RDW 12.0 Plt Count 417 H D MPV 9.3 L Immature Gran % (Auto) 0.6 H Neut % (Auto) 81.4 H Lymph % (Auto) 12.2 L [place] % (Auto) 5.3 Eos % (Auto) 0.4 Baso % (Auto) 0.1 Lymph # (Auto) 1.3 [place] # (Auto) 0.6 Eos # (Auto) 0.0 Baso # (Auto) 0.0 Abs Immat Gran (auto) 0.06 H Absolute Neuts (auto) 8.4 H Absolute Nucleated RBC 0.000 Nucleated RBC % (auto) 0.0 ESR 97 H Hold Purple Top Sodium 131 L Potassium 4.6 Chloride 94 L Carbon Dioxide 24 Anion Gap 18 BUN 19 H Creatinine 1.02 Estim Creat Clear Calc 66.6 Estimated GFR > 60 POC Glucose Random Glucose 283 H Lactic Acid 2.3 H* Lactic Acid F/U @ 2Hr Calcium 9.9 Magnesium 1.7 Total Bilirubin 0.3 AST 34 ALT 37 Alkaline Phosphatase 107 C-Reactive Protein 31.09 H Total Protein 8.9 H Albumin 3.8 Urine Color Yellow Urine Appearance Clear Urine pH 6.0 Ur Specific [place] 1.020 Urine Protein 30 (1+) H Urine Glucose (UA) 100 H Urine Ketones Trace Urine Blood Negative Urine Nitrite Negative Ur Leukocyte Esterase Negative Urine RBC 0-2 Urine WBC 0-5 Ur Squamous Epith Cells 0-2 Urine Bacteria None Seen Hyaline Casts 0-2 Vancomycin Trough Random Vancomycin Influenza Type A (PCR) NEGATIVE Influenza Type B (PCR) NEGATIVE RSV RNA Qual (PCR) NEGATIVE SARS-CoV-2 RNA (RT-PCR) NEGATIVE Blood Type Antibody Screen 01/16/24 01/17/24 01/17/24 19:24 05:12 05:13 WBC 8.8 RBC 3.41 L Hgb 9.8 L Hct 30.4 L MCV 89.1 MCH 28.7 MCHC 32.2 RDW 11.9 Plt Count 414 H MPV 9.3 L Immature Gran % (Auto) 0.5 H Neut % (Auto) 74.1 H Lymph % (Auto) 16.6 L [place] % (Auto) 7.5 Eos % (Auto) 1.1 Baso % (Auto) 0.2 Lymph # (Auto) 1.5 [place] # (Auto) 0.7 Eos # (Auto) 0.1 Baso # (Auto) 0.0 Abs Immat Gran (auto) 0.04 H Absolute Neuts (auto) 6.5 Absolute Nucleated RBC 0.000 Nucleated RBC % (auto) 0.0 ESR Hold Purple Top Sodium 135 Potassium 4.1 Chloride 100 Carbon Dioxide 25 Anion Gap 14 BUN 10 Creatinine 0.79 Estim Creat Clear Calc 86.0 Estimated GFR > 60 POC Glucose Random Glucose 177 H Lactic Acid Lactic Acid F/U @ 2Hr 0.9 Calcium 9.3 D Magnesium Total Bilirubin AST ALT Alkaline Phosphatase C-Reactive Protein Total Protein Albumin Urine Color Urine Appearance Urine pH Ur Specific [place] Urine Protein Urine Glucose (UA) Urine Ketones Urine Blood Urine Nitrite Ur Leukocyte Esterase Urine RBC Urine WBC Ur Squamous Epith Cells Urine Bacteria Hyaline Casts Vancomycin Trough Random Vancomycin Influenza Type A (PCR) Influenza Type B (PCR) RSV RNA Qual (PCR) SARS-CoV-2 RNA (RT-PCR) Blood Type Antibody Screen 01/17/24 01/17/24 01/17/24 07:36 11:34 16:12 WBC RBC Hgb Hct MCV MCH MCHC RDW Plt Count MPV Immature Gran % (Auto) Neut % (Auto) Lymph % (Auto) [place] % (Auto) Eos % (Auto) Baso % (Auto) Lymph # (Auto) [place] # (Auto) Eos # (Auto) Baso # (Auto) Abs Immat Gran (auto) Absolute Neuts (auto) Absolute Nucleated RBC Nucleated RBC % (auto) ESR Hold Purple Top Sodium Potassium Chloride Carbon Dioxide Anion Gap BUN Creatinine Estim Creat Clear Calc Estimated GFR POC Glucose 170 H 220 H 206 H Random Glucose Lactic Acid Lactic Acid F/U @ 2Hr Calcium Magnesium Total Bilirubin AST ALT Alkaline Phosphatase C-Reactive Protein Total Protein Albumin Urine Color Urine Appearance Urine pH Ur Specific [place] Urine Protein Urine Glucose (UA) Urine Ketones Urine Blood Urine Nitrite Ur Leukocyte Esterase Urine RBC Urine WBC Ur Squamous Epith Cells Urine Bacteria Hyaline Casts Vancomycin Trough Random Vancomycin Influenza Type A (PCR) Influenza Type B (PCR) RSV RNA Qual (PCR) SARS-CoV-2 RNA (RT-PCR) Blood Type Antibody Screen 01/17/24 01/18/24 01/18/24 19:16 05:58 07:17 WBC RBC Hgb Hct MCV MCH MCHC RDW Plt Count MPV Immature Gran % (Auto) Neut % (Auto) Lymph % (Auto) [place] % (Auto) Eos % (Auto) Baso % (Auto) Lymph # (Auto) [place] # (Auto) Eos # (Auto) Baso # (Auto) Abs Immat Gran (auto) Absolute Neuts (auto) Absolute Nucleated RBC Nucleated RBC % (auto) ESR Hold Purple Top SEE NOTE Sodium Potassium Chloride Carbon Dioxide Anion Gap BUN Creatinine 0.77 Estim Creat Clear Calc 88.2 Estimated GFR > 60 POC Glucose 161 H 193 H Random Glucose Lactic Acid Lactic Acid F/U @ 2Hr Calcium Magnesium Total Bilirubin AST ALT Alkaline Phosphatase C-Reactive Protein Total Protein Albumin Urine Color Urine Appearance Urine pH Ur Specific [place] Urine Protein Urine Glucose (UA) Urine Ketones Urine Blood Urine Nitrite Ur Leukocyte Esterase Urine RBC Urine WBC Ur Squamous Epith Cells Urine Bacteria Hyaline Casts Vancomycin Trough Random Vancomycin Influenza Type A (PCR) Influenza Type B (PCR) RSV RNA Qual (PCR) SARS-CoV-2 RNA (RT-PCR) Blood Type Antibody Screen 01/18/24 01/18/24 01/18/24 11:14 16:22 20:18 WBC RBC Hgb Hct MCV MCH MCHC RDW Plt Count MPV Immature Gran % (Auto) Neut % (Auto) Lymph % (Auto) [place] % (Auto) Eos % (Auto) Baso % (Auto) Lymph # (Auto) [place] # (Auto) Eos # (Auto) Baso # (Auto) Abs Immat Gran (auto) Absolute Neuts (auto) Absolute Nucleated RBC Nucleated RBC % (auto) ESR Hold Purple Top Sodium Potassium Chloride Carbon Dioxide Anion Gap BUN Creatinine Estim Creat Clear Calc Estimated GFR POC Glucose 253 H 243 H 177 H Random Glucose Lactic Acid Lactic Acid F/U @ 2Hr Calcium Magnesium Total Bilirubin AST ALT Alkaline Phosphatase C-Reactive Protein Total Protein Albumin Urine Color Urine Appearance Urine pH Ur Specific [place] Urine Protein Urine Glucose (UA) Urine Ketones Urine Blood Urine Nitrite Ur Leukocyte Esterase Urine RBC Urine WBC Ur Squamous Epith Cells Urine Bacteria Hyaline Casts Vancomycin Trough Random Vancomycin Influenza Type A (PCR) Influenza Type B (PCR) RSV RNA Qual (PCR) SARS-CoV-2 RNA (RT-PCR) Blood Type Antibody Screen 01/19/24 01/19/24 01/19/24 05:55 06:59 11:02 WBC RBC Hgb Hct MCV MCH MCHC RDW Plt Count MPV Immature Gran % (Auto) Neut % (Auto) Lymph % (Auto) [place] % (Auto) Eos % (Auto) Baso % (Auto) Lymph # (Auto) [place] # (Auto) Eos # (Auto) Baso # (Auto) Abs Immat Gran (auto) Absolute Neuts (auto) Absolute Nucleated RBC Nucleated RBC % (auto) ESR Hold Purple Top SEE NOTE Sodium Potassium Chloride Carbon Dioxide Anion Gap BUN Creatinine 0.74 Estim Creat Clear Calc 91.8 Estimated GFR > 60 POC Glucose 136 H 324 H Random Glucose Lactic Acid Lactic Acid F/U @ 2Hr Calcium Magnesium Total Bilirubin AST ALT Alkaline Phosphatase C-Reactive Protein Total Protein Albumin Urine Color Urine Appearance Urine pH Ur Specific [place] Urine Protein Urine Glucose (UA) Urine Ketones Urine Blood Urine Nitrite Ur Leukocyte Esterase Urine RBC Urine WBC Ur Squamous Epith Cells Urine Bacteria Hyaline Casts Vancomycin Trough Random Vancomycin Influenza Type A (PCR) Influenza Type B (PCR) RSV RNA Qual (PCR) SARS-CoV-2 RNA (RT-PCR) Blood Type Antibody Screen 01/19/24 01/19/24 01/19/24 16:07 18:01 20:05 WBC RBC Hgb Hct MCV MCH MCHC RDW Plt Count MPV Immature Gran % (Auto) Neut % (Auto) Lymph % (Auto) [place] % (Auto) Eos % (Auto) Baso % (Auto) Lymph # (Auto) [place] # (Auto) Eos # (Auto) Baso # (Auto) Abs Immat Gran (auto) Absolute Neuts (auto) Absolute Nucleated RBC Nucleated RBC % (auto) ESR Hold Purple Top Sodium Potassium Chloride Carbon Dioxide Anion Gap BUN Creatinine Estim Creat Clear Calc Estimated GFR POC Glucose 284 H 278 H Random Glucose Lactic Acid Lactic Acid F/U @ 2Hr Calcium Magnesium Total Bilirubin AST ALT Alkaline Phosphatase C-Reactive Protein Total Protein Albumin Urine Color Urine Appearance Urine pH Ur Specific [place] Urine Protein Urine Glucose (UA) Urine Ketones Urine Blood Urine Nitrite Ur Leukocyte Esterase Urine RBC Urine WBC Ur Squamous Epith Cells Urine Bacteria Hyaline Casts Vancomycin Trough 6.0 L Random Vancomycin Influenza Type A (PCR) Influenza Type B (PCR) RSV RNA Qual (PCR) SARS-CoV-2 RNA (RT-PCR) Blood Type Antibody Screen 01/20/24 01/20/24 01/20/24 05:00 07:05 11:22 WBC RBC Hgb Hct MCV MCH MCHC RDW Plt Count MPV Immature Gran % (Auto) Neut % (Auto) Lymph % (Auto) [place] % (Auto) Eos % (Auto) Baso % (Auto) Lymph # (Auto) [place] # (Auto) Eos # (Auto) Baso # (Auto) Abs Immat Gran (auto) Absolute Neuts (auto) Absolute Nucleated RBC Nucleated RBC % (auto) ESR Hold Purple Top SEE NOTE Sodium Potassium Chloride Carbon Dioxide Anion Gap BUN Creatinine 0.88 Estim Creat Clear Calc 77.2 Estimated GFR > 60 POC Glucose 176 H 168 H Random Glucose Lactic Acid Lactic Acid F/U @ 2Hr Calcium Magnesium Total Bilirubin AST ALT Alkaline Phosphatase C-Reactive Protein Total Protein Albumin Urine Color Urine Appearance Urine pH Ur Specific [place] Urine Protein Urine Glucose (UA) Urine Ketones Urine Blood Urine Nitrite Ur Leukocyte Esterase Urine RBC Urine WBC Ur Squamous Epith Cells Urine Bacteria Hyaline Casts Vancomycin Trough Random Vancomycin Influenza Type A (PCR) Influenza Type B (PCR) RSV RNA Qual (PCR) SARS-CoV-2 RNA (RT-PCR) Blood Type Antibody Screen 01/20/24 01/20/24 01/20/24 12:27 16:06 17:55 WBC RBC Hgb Hct MCV MCH MCHC RDW Plt Count MPV Immature Gran % (Auto) Neut % (Auto) Lymph % (Auto) [place] % (Auto) Eos % (Auto) Baso % (Auto) Lymph # (Auto) [place] # (Auto) Eos # (Auto) Baso # (Auto) Abs Immat Gran (auto) Absolute Neuts (auto) Absolute Nucleated RBC Nucleated RBC % (auto) ESR Hold Purple Top Sodium Potassium Chloride Carbon Dioxide Anion Gap BUN Creatinine Estim Creat Clear Calc Estimated GFR POC Glucose 145 H 200 H Random Glucose Lactic Acid Lactic Acid F/U @ 2Hr Calcium Magnesium Total Bilirubin AST ALT Alkaline Phosphatase C-Reactive Protein Total Protein Albumin Urine Color Urine Appearance Urine pH Ur Specific [place] Urine Protein Urine Glucose (UA) Urine Ketones Urine Blood Urine Nitrite Ur Leukocyte Esterase Urine RBC Urine WBC Ur Squamous Epith Cells Urine Bacteria Hyaline Casts Vancomycin Trough Random Vancomycin 14.4 L Influenza Type A (PCR) Influenza Type B (PCR) RSV RNA Qual (PCR) SARS-CoV-2 RNA (RT-PCR) Blood Type Antibody Screen 01/20/24 01/21/24 01/21/24 19:57 06:11 07:13 WBC 10.7 RBC 3.31 L Hgb 9.6 L Hct 29.3 L MCV 88.5 MCH 29.0 MCHC 32.8 RDW 12.2 Plt Count 464 H MPV 9.0 L Immature Gran % (Auto) Neut % (Auto) Lymph % (Auto) [place] % (Auto) Eos % (Auto) Baso % (Auto) Lymph # (Auto) [place] # (Auto) Eos # (Auto) Baso # (Auto) Abs Immat Gran (auto) Absolute Neuts (auto) Absolute Nucleated RBC 0.000 Nucleated RBC % (auto) 0.0 ESR Hold Purple Top Sodium Potassium Chloride Carbon Dioxide Anion Gap BUN Creatinine 0.82 Estim Creat Clear Calc 82.9 Estimated GFR > 60 POC Glucose 280 H 187 H Random Glucose Lactic Acid Lactic Acid F/U @ 2Hr Calcium Magnesium Total Bilirubin AST ALT Alkaline Phosphatase C-Reactive Protein Total Protein Albumin Urine Color Urine Appearance Urine pH Ur Specific [place] Urine Protein Urine Glucose (UA) Urine Ketones Urine Blood Urine Nitrite Ur Leukocyte Esterase Urine RBC Urine WBC Ur Squamous Epith Cells Urine Bacteria Hyaline Casts Vancomycin Trough Random Vancomycin Influenza Type A (PCR) Influenza Type B (PCR) RSV RNA Qual (PCR) SARS-CoV-2 RNA (RT-PCR) Blood Type Antibody Screen 01/21/24 01/21/24 01/21/24 10:50 16:20 18:02 WBC RBC Hgb Hct MCV MCH MCHC RDW Plt Count MPV Immature Gran % (Auto) Neut % (Auto) Lymph % (Auto) [place] % (Auto) Eos % (Auto) Baso % (Auto) Lymph # (Auto) [place] # (Auto) Eos # (Auto) Baso # (Auto) Abs Immat Gran (auto) Absolute Neuts (auto) Absolute Nucleated RBC Nucleated RBC % (auto) ESR Hold Purple Top Sodium Potassium Chloride Carbon Dioxide Anion Gap BUN Creatinine Estim Creat Clear Calc Estimated GFR POC Glucose 177 H 235 H Random Glucose Lactic Acid Lactic Acid F/U @ 2Hr Calcium Magnesium Total Bilirubin AST ALT Alkaline Phosphatase C-Reactive Protein Total Protein Albumin Urine Color Urine Appearance Urine pH Ur Specific [place] Urine Protein Urine Glucose (UA) Urine Ketones Urine Blood Urine Nitrite Ur Leukocyte Esterase Urine RBC Urine WBC Ur Squamous Epith Cells Urine Bacteria Hyaline Casts Vancomycin Trough Random Vancomycin 14.5 L Influenza Type A (PCR) Influenza Type B (PCR) RSV RNA Qual (PCR) SARS-CoV-2 RNA (RT-PCR) Blood Type Antibody Screen 01/21/24 01/22/24 01/22/24 20:02 06:10 07:11 WBC 8.2 RBC 2.94 L Hgb 8.5 L Hct 25.8 L MCV 87.8 MCH 28.9 MCHC 32.9 RDW 12.2 Plt Count 428 H MPV 9.0 L Immature Gran % (Auto) 0.7 H Neut % (Auto) 77.0 H Lymph % (Auto) 14.1 L [place] % (Auto) 7.4 Eos % (Auto) 0.7 Baso % (Auto) 0.1 Lymph # (Auto) 1.2 [place] # (Auto) 0.6 Eos # (Auto) 0.1 Baso # (Auto) 0.0 Abs Immat Gran (auto) 0.06 H Absolute Neuts (auto) 6.3 Absolute Nucleated RBC 0.000 Nucleated RBC % (auto) 0.0 ESR Hold Purple Top Sodium Potassium Chloride Carbon Dioxide Anion Gap BUN Creatinine 0.74 Estim Creat Clear Calc 91.8 Estimated GFR > 60 POC Glucose 193 H 145 H Random Glucose Lactic Acid Lactic Acid F/U @ 2Hr Calcium Magnesium Total Bilirubin AST ALT Alkaline Phosphatase C-Reactive Protein Total Protein Albumin Urine Color Urine Appearance Urine pH Ur Specific [place] Urine Protein Urine Glucose (UA) Urine Ketones Urine Blood Urine Nitrite Ur Leukocyte Esterase Urine RBC Urine WBC Ur Squamous Epith Cells Urine Bacteria Hyaline Casts Vancomycin Trough Random Vancomycin Influenza Type A (PCR) Influenza Type B (PCR) RSV RNA Qual (PCR) SARS-CoV-2 RNA (RT-PCR) Blood Type Antibody Screen 01/22/24 01/22/24 01/22/24 11:06 16:00 18:05 WBC RBC Hgb Hct MCV MCH MCHC RDW Plt Count MPV Immature Gran % (Auto) Neut % (Auto) Lymph % (Auto) [place] % (Auto) Eos % (Auto) Baso % (Auto) Lymph # (Auto) [place] # (Auto) Eos # (Auto) Baso # (Auto) Abs Immat Gran (auto) Absolute Neuts (auto) Absolute Nucleated RBC Nucleated RBC % (auto) ESR Hold Purple Top Sodium Potassium Chloride Carbon Dioxide Anion Gap BUN Creatinine Estim Creat Clear Calc Estimated GFR POC Glucose 286 H 215 H Random Glucose Lactic Acid Lactic Acid F/U @ 2Hr Calcium Magnesium Total Bilirubin AST ALT Alkaline Phosphatase C-Reactive Protein Total Protein Albumin Urine Color Urine Appearance Urine pH Ur Specific [place] Urine Protein Urine Glucose (UA) Urine Ketones Urine Blood Urine Nitrite Ur Leukocyte Esterase Urine RBC Urine WBC Ur Squamous Epith Cells Urine Bacteria Hyaline Casts Vancomycin Trough Random Vancomycin 15.2 Influenza Type A (PCR) Influenza Type B (PCR) RSV RNA Qual (PCR) SARS-CoV-2 RNA (RT-PCR) Blood Type Antibody Screen 01/22/24 01/23/24 01/23/24 19:54 05:31 06:20 WBC RBC Hgb Hct MCV MCH MCHC RDW Plt Count MPV Immature Gran % (Auto) Neut % (Auto) Lymph % (Auto) [place] % (Auto) Eos % (Auto) Baso % (Auto) Lymph # (Auto) [place] # (Auto) Eos # (Auto) Baso # (Auto) Abs Immat Gran (auto) Absolute Neuts (auto) Absolute Nucleated RBC Nucleated RBC % (auto) ESR Hold Purple Top SEE NOTE Sodium Potassium Chloride Carbon Dioxide Anion Gap BUN Creatinine 0.76 Estim Creat Clear Calc 89.4 Estimated GFR > 60 POC Glucose 177 H 146 H Random Glucose Lactic Acid Lactic Acid F/U @ 2Hr Calcium Magnesium Total Bilirubin AST ALT Alkaline Phosphatase C-Reactive Protein Total Protein Albumin Urine Color Urine Appearance Urine pH Ur Specific [place] Urine Protein Urine Glucose (UA) Urine Ketones Urine Blood Urine Nitrite Ur Leukocyte Esterase Urine RBC Urine WBC Ur Squamous Epith Cells Urine Bacteria Hyaline Casts Vancomycin Trough Random Vancomycin Influenza Type A (PCR) Influenza Type B (PCR) RSV RNA Qual (PCR) SARS-CoV-2 RNA (RT-PCR) Blood Type Antibody Screen 01/23/24 01/23/24 01/23/24 11:22 16:18 18:04 WBC RBC Hgb Hct MCV MCH MCHC RDW Plt Count MPV Immature Gran % (Auto) Neut % (Auto) Lymph % (Auto) [place] % (Auto) Eos % (Auto) Baso % (Auto) Lymph # (Auto) [place] # (Auto) Eos # (Auto) Baso # (Auto) Abs Immat Gran (auto) Absolute Neuts (auto) Absolute Nucleated RBC Nucleated RBC % (auto) ESR Hold Purple Top Sodium Potassium Chloride Carbon Dioxide Anion Gap BUN Creatinine Estim Creat Clear Calc Estimated GFR POC Glucose 239 H 194 H Random Glucose Lactic Acid Lactic Acid F/U @ 2Hr Calcium Magnesium Total Bilirubin AST ALT Alkaline Phosphatase C-Reactive Protein Total Protein Albumin Urine Color Urine Appearance Urine pH Ur Specific [place] Urine Protein Urine Glucose (UA) Urine Ketones Urine Blood Urine Nitrite Ur Leukocyte Esterase Urine RBC Urine WBC Ur Squamous Epith Cells Urine Bacteria Hyaline Casts Vancomycin Trough Random Vancomycin 15.9 Influenza Type A (PCR) Influenza Type B (PCR) RSV RNA Qual (PCR) SARS-CoV-2 RNA (RT-PCR) Blood Type Antibody Screen 01/23/24 01/24/24 01/24/24 20:06 05:59 07:17 WBC RBC Hgb Hct MCV MCH MCHC RDW Plt Count MPV Immature Gran % (Auto) Neut % (Auto) Lymph % (Auto) [place] % (Auto) Eos % (Auto) Baso % (Auto) Lymph # (Auto) [place] # (Auto) Eos # (Auto) Baso # (Auto) Abs Immat Gran (auto) Absolute Neuts (auto) Absolute Nucleated RBC Nucleated RBC % (auto) ESR Hold Purple Top Sodium Potassium Chloride Carbon Dioxide Anion Gap BUN Creatinine 0.80 Estim Creat Clear Calc 84.9 Estimated GFR > 60 POC Glucose 266 H 130 H Random Glucose Lactic Acid Lactic Acid F/U @ 2Hr Calcium Magnesium Total Bilirubin AST ALT Alkaline Phosphatase C-Reactive Protein Total Protein Albumin Urine Color Urine Appearance Urine pH Ur Specific [place] Urine Protein Urine Glucose (UA) Urine Ketones Urine Blood Urine Nitrite Ur Leukocyte Esterase Urine RBC Urine WBC Ur Squamous Epith Cells Urine Bacteria Hyaline Casts Vancomycin Trough Random Vancomycin Influenza Type A (PCR) Influenza Type B (PCR) RSV RNA Qual (PCR) SARS-CoV-2 RNA (RT-PCR) Blood Type Antibody Screen 01/24/24 01/24/24 01/24/24 11:38 16:10 20:15 WBC RBC Hgb Hct MCV MCH MCHC RDW Plt Count MPV Immature Gran % (Auto) Neut % (Auto) Lymph % (Auto) [place] % (Auto) Eos % (Auto) Baso % (Auto) Lymph # (Auto) [place] # (Auto) Eos # (Auto) Baso # (Auto) Abs Immat Gran (auto) Absolute Neuts (auto) Absolute Nucleated RBC Nucleated RBC % (auto) ESR Hold Purple Top Sodium Potassium Chloride Carbon Dioxide Anion Gap BUN Creatinine Estim Creat Clear Calc Estimated GFR POC Glucose 219 H 233 H 236 H Random Glucose Lactic Acid Lactic Acid F/U @ 2Hr Calcium Magnesium Total Bilirubin AST ALT Alkaline Phosphatase C-Reactive Protein Total Protein Albumin Urine Color Urine Appearance Urine pH Ur Specific [place] Urine Protein Urine Glucose (UA) Urine Ketones Urine Blood Urine Nitrite Ur Leukocyte Esterase Urine RBC Urine WBC Ur Squamous Epith Cells Urine Bacteria Hyaline Casts Vancomycin Trough Random Vancomycin Influenza Type A (PCR) Influenza Type B (PCR) RSV RNA Qual (PCR) SARS-CoV-2 RNA (RT-PCR) Blood Type Antibody Screen 01/25/24 01/25/24 01/25/24 05:59 07:16 10:41 WBC 7.6 RBC 3.29 L Hgb 9.5 L Hct 29.7 L MCV 90.3 MCH 28.9 MCHC 32.0 RDW 12.4 Plt Count 476 H MPV 9.2 L Immature Gran % (Auto) Neut % (Auto) Lymph % (Auto) [place] % (Auto) Eos % (Auto) Baso % (Auto) Lymph # (Auto) [place] # (Auto) Eos # (Auto) Baso # (Auto) Abs Immat Gran (auto) Absolute Neuts (auto) Absolute Nucleated RBC 0.000 Nucleated RBC % (auto) 0.0 ESR Hold Purple Top Sodium 134 L Potassium 4.0 Chloride 99 Carbon Dioxide 26 Anion Gap 13 BUN 8 L Creatinine 0.79 0.83 Estim Creat Clear Calc 86.0 81.9 Estimated GFR > 60 > 60 POC Glucose 155 H Random Glucose 204 H Lactic Acid Lactic Acid F/U @ 2Hr Calcium 9.1 Magnesium Total Bilirubin AST ALT Alkaline Phosphatase C-Reactive Protein Total Protein Albumin Urine Color Urine Appearance Urine pH Ur Specific [place] Urine Protein Urine Glucose (UA) Urine Ketones Urine Blood Urine Nitrite Ur Leukocyte Esterase Urine RBC Urine WBC Ur Squamous Epith Cells Urine Bacteria Hyaline Casts Vancomycin Trough 15.4 Random Vancomycin Influenza Type A (PCR) Influenza Type B (PCR) RSV RNA Qual (PCR) SARS-CoV-2 RNA (RT-PCR) Blood Type O Positive Antibody Screen NEGATIVE 01/25/24 01/25/24 01/25/24 11:12 15:39 19:38 WBC RBC Hgb Hct MCV MCH MCHC RDW Plt Count MPV Immature Gran % (Auto) Neut % (Auto) Lymph % (Auto) [place] % (Auto) Eos % (Auto) Baso % (Auto) Lymph # (Auto) [place] # (Auto) Eos # (Auto) Baso # (Auto) Abs Immat Gran (auto) Absolute Neuts (auto) Absolute Nucleated RBC Nucleated RBC % (auto) ESR Hold Purple Top Sodium Potassium Chloride Carbon Dioxide Anion Gap BUN Creatinine Estim Creat Clear Calc Estimated GFR POC Glucose 176 H 341 H 250 H Random Glucose Lactic Acid Lactic Acid F/U @ 2Hr Calcium Magnesium Total Bilirubin AST ALT Alkaline Phosphatase C-Reactive Protein Total Protein Albumin Urine Color Urine Appearance Urine pH Ur Specific [place] Urine Protein Urine Glucose (UA) Urine Ketones Urine Blood Urine Nitrite Ur Leukocyte Esterase Urine RBC Urine WBC Ur Squamous Epith Cells Urine Bacteria Hyaline Casts Vancomycin Trough Random Vancomycin Influenza Type A (PCR) Influenza Type B (PCR) RSV RNA Qual (PCR) SARS-CoV-2 RNA (RT-PCR) Blood Type Antibody Screen 01/26/24 01/26/24 01/26/24 05:20 07:36 09:42 WBC RBC Hgb Hct MCV MCH MCHC RDW Plt Count MPV Immature Gran % (Auto) Neut % (Auto) Lymph % (Auto) [place] % (Auto) Eos % (Auto) Baso % (Auto) Lymph # (Auto) [place] # (Auto) Eos # (Auto) Baso # (Auto) Abs Immat Gran (auto) Absolute Neuts (auto) Absolute Nucleated RBC Nucleated RBC % (auto) ESR Hold Purple Top SEE NOTE Sodium Potassium Chloride Carbon Dioxide Anion Gap BUN Creatinine 0.86 Estim Creat Clear Calc 79.0 Estimated GFR > 60 POC Glucose 160 H 151 H Random Glucose Lactic Acid Lactic Acid F/U @ 2Hr Calcium Magnesium Total Bilirubin AST ALT Alkaline Phosphatase C-Reactive Protein Total Protein Albumin Urine Color Urine Appearance Urine pH Ur Specific [place] Urine Protein Urine Glucose (UA) Urine Ketones Urine Blood Urine Nitrite Ur Leukocyte Esterase Urine RBC Urine WBC Ur Squamous Epith Cells Urine Bacteria Hyaline Casts Vancomycin Trough Random Vancomycin Influenza Type A (PCR) Influenza Type B (PCR) RSV RNA Qual (PCR) SARS-CoV-2 RNA (RT-PCR) Blood Type Antibody Screen Airway Mallampati Class: II TM Dist: >3cm Neck ROM: Full Loose/Missing/Broken Teeth: No (Poor dentition but patient denies broken, loose, missing teeth) Heart: RRR + systolic murmur Lungs: CTAB Assessment and Plan Assessment Anesthesia Assessment: Anesthesia Plan Discussed and Chart Reviewed Final Anesthetic Review Family History of Problems with Anesthesia: No History of Problems with Anesthesia: No NPO: Yes ASA Class: III Final Preanesthetic Review: No Changes in Pt Med Stat, Meds/Allgs Chart Reviewed, Consent Obtained/Reviewed and Anes Risks/Benef Reviewed Patient Risk: Intermediate Procedure Risk: Intermediate Assessment/Block/Sedation in SS: Assess/Block/Sedation-SS Anesthetic Plan Anesthetic Plan: GA Disposition: Standard PACU and Inp. Admit - Standard Bed
--- NOTE | 2024-01-26 12:31 | P.OP_ITS ---
Operative Note Operative Note Date of Service: 01/26/24 Narrative: Operative note by [facility] Preoperative diagnosis: 1. Ischemic right lower extremity 2. Diabetic foot ulcer Postoperative diagnosis: Same Procedure: 1. Right Leg below-knee amputation 2. Myodesis Surgeon:Tj Simpson M.D. Social Work Instructor: Souleymane Anesthesia: General Specimens: One Drains: None Estimated blood loss:100 ml Indications: 73-year-old diabetic gentleman who had undergone toe amputation subsequent transmetatarsal amputation. Transmetatarsal amp flap failed. Greater than 50% necrosis. He now presents for below-knee amputation The patient has signed the informed consent after reviewing risks, complications, benefits, and alternatives previously discussed with the patient. The patient was given the opportunity to ask any additional questions or voice any concerns. All questions were answered to the patient's satisfaction. Procedure in detail: The patient was brought to the operating room prior to which a time-out was called for patient identification and site verification. The patient was placed in a supine position. The right lower extremity was prepped and draped in the standard surgical fashion. The intended incision site was marked. The anterior aspect of the incision was made approximately 10 cm below the right tibial tuberosity. The incision was carried through the fascia. The anterior compartment muscles were divided using electrocautery dissection. The tibia and fibula were cleared. Periosteal elevator was used to clear the periosteum from the tibia. The tibia was transected with a power reciprocating saw. This was done in a reverse hockey stick shaped cut. The fibula was transected approximately 2 in above the tibial transection site once again with a reciprocating saw. The amputation was then completed using electrocautery to create the posterior flap. The flap was debulked using electrocautery and Metzenbaum scissors. The nerve was placed on traction and ligated and divided sharply. The anterior tibial posterior tibial and peroneal vessels were or identified and tied off with 2-0 silk ties. We then performed a myodesis. In the tibia on the medial and lateral aspect using a drill holes were then created. Using 2-0 Polysorb, the muscle was then buttressed to the tibia. The wound was then closed using 2-0 poly Sorb. This was used to bring together the fascia from the posterior flap to the anterior cut. We then reapproximated the superficial layer with 3-0 poly Sorb suture. Finally skin was closed using 2-0 nylon in a mattress fashion. In addition we used skin clips. The stump was then dressed with Xeroform, Kerlix and an Justin wrap. The patient tolerated the procedure well. They were brought to recovery with stable vitals. At the end the case sponge needle instrument counts were correct x2. This note is constructed using voice recognition software. While every effort has been made to ensure accuracy, cement block maker errors may have been included. Thank you for allowing me to participate in the care of your patient. Yours sincerely, Tj Simpson MD, FACS, R.P.V.I.
--- NOTE | 2024-01-26 15:12 | HO.PM.IMPN ---
Subjective Subjective Date of Service: 01/26/24 Interval History: Seen and examined this morning Follow-up for nonhealing foot wound No overnight events. Pain controlled Plan for BKA today Review of Systems Review of Systems: Yes all other systems are reviewed and are negative Constitutional Constitutional: Denies fever(s) Cardiovascular Cardiovascular: Denies chest pain and Denies dyspnea Respiratory Respiratory: Denies dyspnea Gastrointestinal Gastrointestinal: Denies abdominal pain Physical Exam Vital Signs: Vital Signs: Last Vital Signs Temp 98.6 F 01/26/24 13:06 Pulse 88 01/26/24 13:06 Resp 20 01/26/24 13:06 BP 136/82 01/26/24 13:06 Pulse Ox 95 01/26/24 13:06 O2 Del Method Room Air 01/26/24 13:06 O2 Flow Rate 6 01/26/24 12:42 BMI result Body Mass Index 24.2 Const: General: cooperative, comfortable, alert and awake Nutritional Appearance: average body habitus Orientation/consciousness: patient oriented x3 Resp: Effort & Inspection: normal respiratory effort, able to speak in complete sentences, no respiratory distress and no use of accessory muscles Cardio: Rate: regular rate GI: Inspection: No distended Palpation (GI): Soft to palpation and nontender Skin: Other: right foot wrapped in c/d/i dressing Neuro: General: patient oriented x3, moves all extremities and CN's II-XI intact bilaterally Objective Data Active Medications Acetaminophen (Acetaminophen 325 Mg Tablet) 650 mg PO Q6H PRN PRN Reason: Pain, Mild (Pain Scale 1-3) Last Admin: 01/22/24 19:07 Dose: 650 mg Documented By: SAMI Albuterol Sulfate (Albuterol Sulfate (0.083%) 2.5 Mg/3 Ml Vial.[facility]) 2.5 mg INHALE ONCE PRN PRN Reason: Wheezing Stop: 01/26/24 18:19 Amlodipine Besylate (Amlodipine Besylate 10 Mg Tablet) 10 mg PO DAILY [facility]; Protocol Last Admin: 01/26/24 09:25 Dose: 10 mg Documented By: ERICA Aspirin (Aspirin Enteric Coated 81 Mg Tablet.) 81 mg PO DAILY [facility] Last Admin: 01/25/24 07:44 Dose: 81 mg Documented By: LOVE Atorvastatin Calcium (Atorvastatin Calcium 20 Mg Tablet) 20 mg PO BEDTIME [facility] Last Admin: 01/24/24 19:30 Dose: 20 mg Documented By: ANTOIC Docusate Sodium (Docusate Sodium 100 Mg Capsule) 100 mg PO BID PRN PRN Reason: Constipation Last Admin: 01/25/24 08:11 Dose: 100 mg Documented By: LOVE Enoxaparin Sodium (Enoxaparin Sodium 40 Mg/0.4 Ml Syringe) 40 mg SUBCUT Q24H [facility] Last Admin: 01/25/24 21:06 Dose: 40 mg Documented By: LOVE Fentanyl (Fentanyl Citrate/Pf 100 Mcg/2 Ml Vial) 25 mcg IVPUSH Q5M PRN; Protocol PRN Reason: Pain, Moderate(Pain Scale 4-6) Stop: 01/26/24 18:19 Glucose (Glucose Gel 15 Gm Gel..Gram.) 15 gm PO Q15M PRN; Protocol PRN Reason: per Hypoglycemia Standing Ord. Hydromorphone HCl (Hydromorphone Hcl 0.5 Mg/0.5 Ml Syringe) 0.25 mg IVPUSH Q5M PRN; Protocol PRN Reason: Pain, Severe (Pain Scale 7-10) Stop: 01/26/24 18:19 Dextrose (D10) 250 mls @ 750 mls/hr IV Q15M PRN; Protocol PRN Reason: per Hypoglycemia Standing Ord. Vancomycin HCl 1,250 mg/ (Sodium Chloride) 250 mls @ 166.667 mls/hr IV Q12H [facility] Last Infusion: 01/26/24 10:58 Dose: Infused Documented By: ERICA Piperacillin Sod/Tazobactam (Sod 4.5 gm/ Sodium Chloride) 100 mls @ 200 mls/hr IV Q6H [facility] Last Admin: 01/26/24 14:34 Dose: 200 mls/hr Documented By: ERICA Insulin Human Lispro (Insulin Lispro 100 Unit/Ml 3 Ml Vial) 0 unit SUBCUT QIDACHS [facility]; Protocol Last Admin: 01/26/24 12:08 Dose: Not Given Documented By: ERICA Non-Admin Reason: Off Unit: Surgery Lisinopril (Lisinopril 10 Mg Tablet) 10 mg PO DAILY [facility]; Protocol Last Admin: 01/26/24 09:26 Dose: Not Given Documented By: ERICA Non-Admin Reason: Physician Held Med Melatonin (Melatonin 3 Mg Tablet) 6 mg PO BEDTIME PRN PRN Reason: Insomnia Last Admin: 01/22/24 19:08 Dose: 6 mg Documented By: SAMI Morphine Sulfate (Morphine Sulfate 4 Mg/Ml Cartridge) 4 mg IVPUSH Q2H PRN; Protocol PRN Reason: Pain, Severe (Pain Scale 7-10) Ondansetron HCl (Ondansetron Hcl 4 Mg/2 Ml Vial) 4 mg IVPUSH Q8H PRN PRN Reason: Nausea and Vomiting Ondansetron HCl (Ondansetron Hcl 4 Mg/2 Ml Vial) 4 mg IVPUSH ONCE PRN PRN Reason: Nausea and Vomiting Stop: 01/26/24 18:19 Pharmacy Consult (Consult Rx Vancomycin Dosing) 1 each MISCELLANE DAILY PRN PRN Reason: Consult order Sodium Chloride (0.9 % Sodium Chloride Flush 3 Ml Syringe) [address] [facility] Last Admin: 01/26/24 07:55 Dose: 3 ml Documented By: ERICA Labs 01/25/24 10:41 01/26/24 05:20 Labs: Laboratory Results - last 24 hr 01/25/24 01/25/24 01/26/24 15:39 19:38 05:20 Hold Purple Top SEE NOTE Estim Creat Clear Calc 79.0 Estimated GFR > 60 POC Glucose 341 H 250 H 01/26/24 01/26/24 07:36 09:42 Hold Purple Top Estim Creat Clear Calc Estimated GFR POC Glucose 160 H 151 H Assessment and Plan (1) PAD (peripheral artery disease): Status: Acute (2) Cellulitis: Status: Acute Plan This is a 73-year-old male with pertinent history of peripheral vascular disease status post right 2nd toe amputation, non insulin-dependent diabetes mellitus, essential hypertension, mixed hyperlipidemia, history of CVA who presents to the emergency department for concerns of right foot infection. Purulent cellulitis and diabetic foot infection of right foot Underwent amputation of right 2nd toe on 01/09/24 then R TMA 5/10 continue vanco and zosyn Duplex study showing no significant stenosis or occlusion Vascular surgery>due to poor healing of right TMA plan for right BKA today Pzl-yxzmuxy-[id number] type 2 diabetes mellitus with hyperglycemia ss, ada diet hold metformin Essential hypertension Continue home antihypertensives, norvasc and lisinopril Acute lactic acidosis due to metformin use. No sepsis History of CVA hold asa in light of BKA on statin Normocytic anemia Hemoglobin above transfusion threshold DVT prophylaxis: Jean Attending Dr. García Full code Dispo-PT recommends acute rehab upon discharge continue hospital stay for IV antibiotics (as above) s/p R tma and plan for BKA Quality Stroke Does the patient have a stroke diagnosis?: No VTE Prior VTE?: No VTE Risk Level:: Medical - moderate - high VTE Device Contraindication: Treatment Not Indicated VTE Drug Contraindication: N/A - Med Ordered
[2024-01-26] MEDS: polyethylene glycoL 3350 17 GM POWD.PACK PO (15:34)
[2024-01-26 16:31] LABS: Glucose, Whole Blood 278 mg/dL (60-115)
[2024-01-26] MEDS: Insulin Lispro 100 UNIT/ML 3 ML VIAL SUBCUT ×2 (17:56→21:11)
[2024-01-26 18:53] LABS: Vancomycin Random 17.3 mcg/mL (15-20)
[2024-01-26 20:33] LABS: Glucose, Whole Blood 270 mg/dL (60-115)
[2024-01-26] MEDS: Atorvastatin Calcium 20 MG TABLET PO (21:10)
[2024-01-26] MEDS: Enoxaparin Sodium 40 MG/0.4 ML SYRINGE SUBCUT (21:11)
[2024-01-27] VITALS (9 sets, daily range): BP systolic 116–148; BP diastolic 60–89; PULSE 85–104; RESP 16–18; TEMP 36.7–37.6; O2SAT 94–98
[2024-01-27] MEDS: Piperacillin Sodium/Tazobactam 4.5 GM in 0.9 % Sodium Chloride 100 ML IV ×4 (02:05→21:01)
[2024-01-27] MEDS: Morphine Sulfate 4 MG/ML CARTRIDGE IVPUSH ×3 (04:33→16:24)
[2024-01-27 05:50] LABS: Hematocrit 24.4 % (42.0-52.0); Hemoglobin 7.8 g/dl (14.0-18.0); Mean Corpuscular Hemoglobin 28.8 pg (27.0-33.0); Mean Platelet Volume 9.2 fL (9.4-12.4); Platelet Count 452 X10*3/uL (160-400); Red Blood Count 2.71 X10*6/uL (4.60-5.80); Red Cell Distribution Width 12.7 % (11.0-16.0); White Blood Count 9.1 X10*3/uL (4.8-10.8)
[2024-01-27 06:02] LABS: Anion Gap 16 (12-20); Blood Urea Nitrogen 7 mg/dL (9-16); Carbon Dioxide 23 mmol/L (22-29); Chloride 98 mmol/L (96-108); Creatinine Clr Calc Pharmacy 83.9; Estimated Glomerular Filt Rate > 60; Glucose Random 193 mg/dL (60-115); Potassium 4.6 mmol/L (3.3-5.1); Sodium 132 mmol/L (135-145)
--- NOTE | 2024-01-27 06:43 | HE.PHANOTE ---
RE: VANDANA Patient is not due for a level today, next level is to be drawn tomorrow 01/27 @0800. Patients renal is stable. Continue current dose
[2024-01-27 07:31] LABS: Glucose, Whole Blood 176 mg/dL (60-115)
[2024-01-27] MEDS: Insulin Lispro 100 UNIT/ML 3 ML VIAL SUBCUT ×4 (08:06→21:01)
[2024-01-27] MEDS: polyethylene glycoL 3350 17 GM POWD.PACK PO (08:07)
[2024-01-27] MEDS: amLODIPine Besylate 10 MG TABLET PO (08:08)
[2024-01-27] MEDS: Aspirin Enteric Coated 81 MG TABLET.DR PO (08:08)
[2024-01-27] MEDS: lisinopriL 10 MG TABLET PO (08:08)
[2024-01-27] MEDS: 0.9 % Sodium Chloride Flush 3 ML SYRINGE IVFLUSH ×2 (08:08→16:27)
[2024-01-27] MEDS: vancomycin HCL 1,250 MG in 0.9 % Sodium Chloride 250 ML 166.67 MG IV ×2 (10:17→21:58)
[2024-01-27 11:33] LABS: Glucose, Whole Blood 232 mg/dL (60-115)
--- NOTE | 2024-01-27 11:58 | HO.POSTANES ---
Post Anesthesia Evaluation Post Anesthesia Evaluation Date of Service: 01/27/24 Vital Signs: Vital Signs Temp Pulse Resp BP Pulse Ox O2 Del Method 01/27/24 10:21 99 148/79 H 98 01/27/24 07:10 98.5 F 99 18 148/79 H 98 Room Air 01/27/24 02:44 99.6 F 104 H 16 135/89 97 Room Air Anesthesia: General LMA Mental Status: Awake Pain Control: Satisfactory Nausea/Vomiting: None Hydration: Adequate Anesthesia-Related Issues: No Anes. Related Issues
--- NOTE | 2024-01-27 12:36 | MHC.CM.PN ---
Patient POD 1 R BKA. PT continues to recommend [facility]. Sent updates to facilites. [facility] now able to offer a bed and will go for auth. CM will continue to follow.
--- NOTE | 2024-01-27 12:59 | HO.VASCPN ---
Subjective Subjective Date of Service: 01/27/24 Patient reports: no new complaints and feels better Interval history: Pleasant 73-year-old gentleman postop day 1 status post BKA. Reports he is doing fairly well. Pain control seems to be an issue yesterday. Today he seems to be doing somewhat better. Now presents for routine postoperative follow-up. Physical Exam Vital Signs: Vital Signs: Last Vital Signs Temp 98.5 F 01/27/24 07:10 Pulse 99 01/27/24 10:21 Resp 18 01/27/24 07:10 BP 148/79 H 01/27/24 10:21 Pulse Ox 98 01/27/24 10:21 O2 Del Method Room Air 01/27/24 07:10 O2 Flow Rate 6 01/26/24 12:42 BMI result Body Mass Index 24.2 Const: General: cooperative, healthy appearing and no acute distress Orientation/consciousness: oriented to person, oriented to place and oriented to time HEENT: Head: Yes normal to inspection Neck: Carotids: no bruits Chest: Chest palpation & inspection: normal inspection of the chest Resp: Effort & Inspection: normal respiratory effort and able to speak in complete sentences Auscultation: clear to auscultation bilaterally Cardio: Rate: regular rate Heart sounds: S1 normal heart sound present and S2 normal heart sound present GI: Inspection: Yes normal to inspection Skin: Other: Amp site - dressing clean dry intact General skin exam: no rashes or lesions noted Wounds: amputation site Neuro: General: oriented to person, oriented to place, oriented to time and CN's II-XI intact bilaterally Extrem: General: Yes normal to inspection, Yes full ROM and Yes no clubbing, cyanosis or edema Psych: Appearance: grossly normal and well kempt Speech and movement: Normal speech and movement present Affect: normal affect Progress Note: A&P Assessment and plan (1) PAD (peripheral artery disease): Status: Acute Assessment and Plan: In short patient is doing well status post BKA. He has no significant postoperative issues. Will continue for pain control. Will plan for dressing change on Tuesday. Transfuse as necessary. Should his amp appear to be doing well on Tuesday will plan for subsequent transfer to rehab facility. Thank you for allowing us to assist in his care. If there are any questions or concerns please do not hesitate to contact us Time Spent With Patient Time: Total time managing care of this patient today ____ minutes. Procedures Date of Service Date of Service: 01/27/24 Quality Stroke Does the patient have a stroke diagnosis?: No VTE Prior VTE?: No VTE Risk Level:: Medical - moderate - high VTE Device Contraindication: Treatment Not Indicated VTE Drug Contraindication: N/A - Med Ordered
[2024-01-27 13:20] LABS: Iron 17 mcg/dL (45-160); Percent Iron Saturation 14 % (15-50); Total Iron Binding Capacity 122 mcg/dL (228-428); Unsaturated Iron Binding 105 ug/dL
[2024-01-27 13:48] LABS: Ferritin 919 ng/mL (20-250)
[2024-01-27 15:12] LABS: Hematocrit 22.5 % (42.0-52.0); Hemoglobin 7.3 g/dl (14.0-18.0)
[2024-01-27 16:36] LABS: Glucose, Whole Blood 211 mg/dL (60-115)
--- NOTE | 2024-01-27 16:45 | HO.PM.IMPN ---
Subjective Subjective Date of Service: 01/27/24 Interval History: Seen and examined this morning Follow-up foot infection, status post BKA 01/25 No overnight events. Pain under adequate control Review of Systems Review of Systems: Yes all other systems are reviewed and are negative Constitutional Constitutional: Denies chills and Denies fever(s) Physical Exam Vital Signs: Vital Signs: Last Vital Signs Temp 98.8 F 01/27/24 15:52 Pulse 94 01/27/24 15:52 Resp 16 01/27/24 15:52 BP 116/65 01/27/24 15:52 Pulse Ox 97 01/27/24 15:52 O2 Del Method Room Air 01/27/24 15:52 O2 Flow Rate 6 01/26/24 12:42 BMI result Body Mass Index 24.2 Const: General: cooperative, comfortable, alert and awake Nutritional Appearance: average body habitus Orientation/consciousness: patient oriented x3 Resp: Effort & Inspection: normal respiratory effort, able to speak in complete sentences, no respiratory distress and no use of accessory muscles Cardio: Rate: regular rate GI: Inspection: No distended Palpation (GI): Soft to palpation and nontender Neuro: General: patient oriented x3, moves all extremities and CN's II-XI intact bilaterally Objective Data Active Medications Acetaminophen (Acetaminophen 325 Mg Tablet) 650 mg PO Q6H PRN PRN Reason: Pain, Mild (Pain Scale 1-3) Last Admin: 01/22/24 19:07 Dose: 650 mg Documented By: SAMI Amlodipine Besylate (Amlodipine Besylate 10 Mg Tablet) 10 mg PO DAILY [facility]; Protocol Last Admin: 01/27/24 08:08 Dose: 10 mg Documented By: KUNAL Aspirin (Aspirin Enteric Coated 81 Mg Tablet.) 81 mg PO DAILY [facility] Last Admin: 01/27/24 08:08 Dose: 81 mg Documented By: KUNAL Atorvastatin Calcium (Atorvastatin Calcium 20 Mg Tablet) 20 mg PO BEDTIME [facility] Last Admin: 01/26/24 21:10 Dose: 20 mg Documented By: VINCENT Docusate Sodium (Docusate Sodium 100 Mg Capsule) 100 mg PO BID PRN PRN Reason: Constipation Last Admin: 01/25/24 08:11 Dose: 100 mg Documented By: LVOE Enoxaparin Sodium (Enoxaparin Sodium 40 Mg/0.4 Ml Syringe) 40 mg SUBCUT Q24H [facility] Last Admin: 01/26/24 21:11 Dose: 40 mg Documented By: VINCENT Glucose (Glucose Gel 15 Gm Gel..Gram.) 15 gm PO Q15M PRN; Protocol PRN Reason: per Hypoglycemia Standing Ord. Dextrose (D10) 250 mls @ 750 mls/hr IV Q15M PRN; Protocol PRN Reason: per Hypoglycemia Standing Ord. Piperacillin Sod/Tazobactam (Sod 4.5 gm/ Sodium Chloride) 100 mls @ 200 mls/hr IV Q6H [facility] Last Infusion: 01/27/24 15:04 Dose: Infused Documented By: KUNAL Vancomycin HCl 1,250 mg/ (Sodium Chloride) 250 mls @ 166.667 mls/hr IV Q12H [facility] Last Infusion: 01/27/24 12:21 Dose: Infused Documented By: KUNAL Insulin Human Lispro (Insulin Lispro 100 Unit/Ml 3 Ml Vial) 0 unit SUBCUT QIDACHS [facility]; Protocol Last Admin: 01/27/24 16:28 Dose: 4 unit Documented By: MARILYN Lisinopril (Lisinopril 10 Mg Tablet) 10 mg PO DAILY [facility]; Protocol Last Admin: 01/27/24 08:08 Dose: 10 mg Documented By: KUNAL Melatonin (Melatonin 3 Mg Tablet) 6 mg PO BEDTIME PRN PRN Reason: Insomnia Last Admin: 01/22/24 19:08 Dose: 6 mg Documented By: SAMI Morphine Sulfate (Morphine Sulfate 4 Mg/Ml Cartridge) 4 mg IVPUSH Q2H PRN; Protocol PRN Reason: Pain, Severe (Pain Scale 7-10) Last Admin: 01/27/24 16:24 Dose: 4 mg Documented By: MARILYN Ondansetron HCl (Ondansetron Hcl 4 Mg/2 Ml Vial) 4 mg IVPUSH Q8H PRN PRN Reason: Nausea and Vomiting Polyethylene Glycol (Polyethylene Glycol 3350 17 Gm Powd.Pack) 17 gm PO DAILY [facility] Last Admin: 01/27/24 08:07 Dose: 17 gm Documented By: KUNAL Sodium Chloride (0.9 % Sodium Chloride Flush 3 Ml Syringe) 3 ml IVFLUSH QSHIFT [facility] Last Admin: 01/27/24 16:27 Dose: 3 ml Documented By: MARILYN Labs 01/27/24 14:57 01/27/24 05:07 Labs: Laboratory Results - last 24 hr 01/25/24 01/26/24 01/26/24 10:41 18:01 20:29 MCV MCH MCHC RDW Plt Count MPV Absolute Nucleated RBC Nucleated RBC % (auto) Anion Gap Estim Creat Clear Calc Estimated GFR POC Glucose 270 H Random Glucose Calcium Iron TIBC % Saturation Unsat Iron Binding Ferritin Random Vancomycin 17.3 Blood Type O Positive Antibody Screen NEGATIVE Crossmatch See Detail 01/27/24 01/27/24 01/27/24 05:07 07:13 11:22 MCV 90.0 MCH 28.8 MCHC 32.0 RDW 12.7 Plt Count 452 H MPV 9.2 L Absolute Nucleated RBC 0.000 Nucleated RBC % (auto) 0.0 Anion Gap 16 Estim Creat Clear Calc 83.9 Estimated GFR > 60 POC Glucose 176 H 232 H Random Glucose 193 H Calcium 9.0 Iron 17 L TIBC 122 L % Saturation 14 L Unsat Iron Binding 105 Ferritin 919 H Random Vancomycin Blood Type Antibody Screen Crossmatch 01/27/24 15:56 MCV MCH MCHC RDW Plt Count MPV Absolute Nucleated RBC Nucleated RBC % (auto) Anion Gap Estim Creat Clear Calc Estimated GFR POC Glucose 211 H Random Glucose Calcium Iron TIBC % Saturation Unsat Iron Binding Ferritin Random Vancomycin Blood Type Antibody Screen Crossmatch Assessment and Plan (1) Cellulitis: Status: Acute (2) PAD (peripheral artery disease): Status: Acute Plan This is a 73-year-old male with pertinent history of peripheral vascular disease status post right 2nd toe amputation, non insulin-dependent diabetes mellitus, essential hypertension, mixed hyperlipidemia, history of CVA who presents to the emergency department for concerns of right foot infection. Purulent cellulitis and diabetic foot infection of right foot Underwent amputation of right 2nd toe on 01/09/24 then R TMA 01/19; with poor healing subsequently underwent right BKA 01/25 continue celsoo and maurisio Plan for dressing change on Tuesday and likely transfer to acute rehab Acute on chronic normocytic anemia Likely due to acute blood loss from surgery Patient has elected to hold off on blood transfusion at this time, we will repeat CBC patient currently asymptomatic Snk-oyjsemh-jzfanxxbk type 2 diabetes mellitus with hyperglycemia ss, ada diet hold metformin Essential hypertension Continue home antihypertensives, norvasc and lisinopril Acute lactic acidosis due to metformin use. No sepsis History of CVA hold asa in light of BKA on statin DVT prophylaxis: Jean Attending Dr. García Full code Dispo-PT recommends acute rehab upon discharge continue hospital stay for IV antibiotics, close monitoring of wound, safe disposition Quality Stroke Does the patient have a stroke diagnosis?: No VTE Prior VTE?: No VTE Risk Level:: Medical - moderate - high VTE Device Contraindication: Treatment Not Indicated VTE Drug Contraindication: N/A - Med Ordered
[2024-01-27] MEDS: Acetaminophen 325 MG TABLET 650 MG PO (18:22)
--- NOTE | 2024-01-27 19:25 | PC.NURSE ---
per mendy Watkins to use 22g for blood transfusion
[2024-01-27 20:13] LABS: Glucose, Whole Blood 192 mg/dL (60-115)
[2024-01-27] MEDS: Enoxaparin Sodium 40 MG/0.4 ML SYRINGE SUBCUT (21:00)
[2024-01-27] MEDS: Atorvastatin Calcium 20 MG TABLET PO (21:00)
[2024-01-28 03:18] VITALS: BP 148/73; PULSE 97; RESP 18; TEMP 36.6; O2SAT 97
[2024-01-28 03:32] VITALS: RESP 18
[2024-01-28] MEDS: Morphine Sulfate 4 MG/ML CARTRIDGE IVPUSH ×2 (03:32→13:15)
[2024-01-28] MEDS: Piperacillin Sodium/Tazobactam 4.5 GM in 0.9 % Sodium Chloride 100 ML IV ×4 (03:32→21:36)
[2024-01-28 07:57] LABS: Glucose, Whole Blood 147 mg/dL (60-115)
[2024-01-28 08:00] VITALS: BP 142/80; PULSE 96; RESP 12; TEMP 36.4; O2SAT 99
[2024-01-28 08:06] LABS: Hematocrit 28.1 % (42.0-52.0); Hemoglobin 9.2 g/dl (14.0-18.0); Mean Corpuscular HGB Conc 32.7 g/dl (31.0-36.0); Mean Corpuscular Hemoglobin 29.1 pg (27.0-33.0); Mean Corpuscular Volume 88.9 fL (80.0-98.0); Mean Platelet Volume 8.9 fL (9.4-12.4); Platelet Count 460 X10*3/uL (160-400); Red Blood Count 3.16 X10*6/uL (4.60-5.80); Red Cell Distribution Width 13.4 % (11.0-16.0)
[2024-01-28] MEDS: 0.9 % Sodium Chloride Flush 3 ML SYRINGE IVFLUSH ×3 (08:12→21:47)
[2024-01-28 08:13] LABS: Creatinine Clr Calc Pharmacy 89.4; Estimated Glomerular Filt Rate > 60
[2024-01-28] MEDS: polyethylene glycoL 3350 17 GM POWD.PACK PO ×2 (08:14→21:34)
[2024-01-28] MEDS: amLODIPine Besylate 10 MG TABLET PO (08:14)
[2024-01-28] MEDS: Aspirin Enteric Coated 81 MG TABLET.DR PO (08:14)
[2024-01-28] MEDS: lisinopriL 10 MG TABLET PO (08:14)
[2024-01-28 08:44] LABS: Vancomycin Trough 15.4 mcg/mL (10.0-20.0)
[2024-01-28] MEDS: vancomycin HCL 1,250 MG in 0.9 % Sodium Chloride 250 ML 166.67 MG IV ×2 (09:29→21:35)
[2024-01-28] MEDS: bisacodyL 5 MG TABLET.DR 10 MG PO (11:28)
[2024-01-28 11:56] LABS: Glucose, Whole Blood 232 mg/dL (60-115)
[2024-01-28] MEDS: Insulin Lispro 100 UNIT/ML 3 ML VIAL SUBCUT ×3 (12:08→21:52)
[2024-01-28 15:15] VITALS: BP 136/76; PULSE 94; RESP 16; TEMP 36.8; O2SAT 96
[2024-01-28 16:18] LABS: Glucose, Whole Blood 171 mg/dL (60-115)
--- NOTE | 2024-01-28 17:17 | HO.PM.IMPN ---
Subjective Subjective Date of Service: 01/28/24 Interval History: Seen and examined this morning Follow-up for nonhealing foot infection status post TMA and then right BKA No overnight events, tolerate a blood transfusion without incident Denies shortness of breath, chest pain, fever, chills Review of Systems Review of Systems: Yes all other systems are reviewed and are negative Constitutional Constitutional: Denies chills and Denies fever(s) Cardiovascular Cardiovascular: Denies chest pain, Denies palpitations and Denies dyspnea Respiratory Respiratory: Denies cough and Denies dyspnea Endocrine Endocrine: Denies palpitations Physical Exam Vital Signs: Vital Signs: Last Vital Signs Temp 98.3 F 01/28/24 15:15 Pulse 94 01/28/24 15:15 Resp 16 01/28/24 15:15 BP 136/76 01/28/24 15:15 Pulse Ox 96 01/28/24 15:15 O2 Del Method Room Air 01/28/24 15:15 O2 Flow Rate 6 01/26/24 12:42 BMI result Body Mass Index 24.2 Const: General: cooperative, comfortable, alert and awake Nutritional Appearance: average body habitus Orientation/consciousness: patient oriented x3 Resp: Effort & Inspection: normal respiratory effort, able to speak in complete sentences, no respiratory distress and no use of accessory muscles Cardio: Rate: regular rate GI: Inspection: No distended Palpation (GI): Soft to palpation and nontender Neuro: General: patient oriented x3, moves all extremities and CN's II-XI intact bilaterally Extrem: Other: s/p BKA - extremity wrapped in clean/dry/intact bandage Objective Data Active Medications Acetaminophen (Acetaminophen 325 Mg Tablet) 650 mg PO Q6H PRN PRN Reason: Pain, Mild (Pain Scale 1-3) Last Admin: 01/22/24 19:07 Dose: 650 mg Documented By: SAMI Amlodipine Besylate (Amlodipine Besylate 10 Mg Tablet) 10 mg PO DAILY [facility]; Protocol Last Admin: 01/28/24 08:14 Dose: 10 mg Documented By: MARILYN Aspirin (Aspirin Enteric Coated 81 Mg Tablet.) 81 mg PO DAILY [facility] Last Admin: 01/28/24 08:14 Dose: 81 mg Documented By: MARILYN Atorvastatin Calcium (Atorvastatin Calcium 20 Mg Tablet) 20 mg PO BEDTIME [facility] Last Admin: 01/27/24 21:00 Dose: 20 mg Documented By: TOI Bisacodyl (Bisacodyl 5 Mg Tablet.Dr) 10 mg PO DAILY PRN PRN Reason: Constipation Last Admin: 01/28/24 11:28 Dose: 10 mg Documented By: MARILYN Docusate Sodium (Docusate Sodium 100 Mg Capsule) 100 mg PO BID [facility] Enoxaparin Sodium (Enoxaparin Sodium 40 Mg/0.4 Ml Syringe) 40 mg SUBCUT Q24H [facility] Last Admin: 01/27/24 21:00 Dose: 40 mg Documented By: TOI Glucose (Glucose Gel 15 Gm Gel..Gram.) 15 gm PO Q15M PRN; Protocol PRN Reason: per Hypoglycemia Standing Ord. Dextrose (D10) 250 mls @ 750 mls/hr IV Q15M PRN; Protocol PRN Reason: per Hypoglycemia Standing Ord. Piperacillin Sod/Tazobactam (Sod 4.5 gm/ Sodium Chloride) 100 mls @ 200 mls/hr IV Q6H [facility] Last Infusion: 01/28/24 14:06 Dose: Infused Documented By: GERMAN Vancomycin HCl 1,250 mg/ (Sodium Chloride) 250 mls @ 166.667 mls/hr IV Q12H [facility] Last Infusion: 01/28/24 11:24 Dose: Infused Documented By: MARILYN Insulin Human Lispro (Insulin Lispro 100 Unit/Ml 3 Ml Vial) 0 unit SUBCUT QIDACHS [facility]; Protocol Last Admin: 01/28/24 16:57 Dose: 2 unit Documented By: MARILYN Lisinopril (Lisinopril 10 Mg Tablet) 10 mg PO DAILY [facility]; Protocol Last Admin: 01/28/24 08:14 Dose: 10 mg Documented By: MARILYN Melatonin (Melatonin 3 Mg Tablet) 6 mg PO BEDTIME PRN PRN Reason: Insomnia Last Admin: 01/22/24 19:08 Dose: 6 mg Documented By: SAMI Morphine Sulfate (Morphine Sulfate 4 Mg/Ml Cartridge) 4 mg IVPUSH Q2H PRN; Protocol PRN Reason: Pain, Severe (Pain Scale 7-10) Last Admin: 01/28/24 13:15 Dose: 4 mg Documented By: MARILYN Ondansetron HCl (Ondansetron Hcl 4 Mg/2 Ml Vial) 4 mg IVPUSH Q8H PRN PRN Reason: Nausea and Vomiting Polyethylene Glycol (Polyethylene Glycol 3350 17 Gm Powd.Pack) 17 gm PO BID [facility] Sodium Chloride (0.9 % Sodium Chloride Flush 3 Ml Syringe) 3 ml IVFLUSH QSHIFT [facility] Last Admin: 01/28/24 16:58 Dose: 3 ml Documented By: MARILYN Labs 01/28/24 07:55 01/28/24 07:55 Labs: Laboratory Results - last 24 hr 01/25/24 01/27/24 01/28/24 10:41 19:45 07:48 MCV MCH MCHC RDW Plt Count MPV Absolute Nucleated RBC Nucleated RBC % (auto) Estim Creat Clear Calc Estimated GFR POC Glucose 192 H 147 H Vancomycin Trough Blood Type O Positive Antibody Screen NEGATIVE Crossmatch See Detail 01/28/24 01/28/24 01/28/24 07:55 11:51 16:08 MCV 88.9 MCH 29.1 MCHC 32.7 RDW 13.4 Plt Count 460 H MPV 8.9 L Absolute Nucleated RBC 0.000 Nucleated RBC % (auto) 0.0 Estim Creat Clear Calc 89.4 Estimated GFR > 60 POC Glucose 232 H 171 H Vancomycin Trough 15.4 Blood Type Antibody Screen Crossmatch Assessment and Plan (1) PAD (peripheral artery disease): Status: Acute Plan This is a 73-year-old male with pertinent history of peripheral vascular disease status post right 2nd toe amputation, non insulin-dependent diabetes mellitus, essential hypertension, mixed hyperlipidemia, history of CVA who presents to the emergency department for concerns of right foot infection. Purulent cellulitis and diabetic foot infection of right foot Underwent amputation of right 2nd toe on 01/09/24 then R TMA 01/19; with poor healing subsequently underwent right BKA 01/25 continue vanco and zosyn Plan for dressing change on Tuesday and likely transfer to acute rehab Acute on chronic normocytic anemia Likely due to acute blood loss from surgery s/p 1U of blood with improvement in H/H Fpx-jftvbzh-fglpnkduo type 2 diabetes mellitus with hyperglycemia ss, ada diet hold metformin Essential hypertension Continue home antihypertensives, norvasc and lisinopril Acute lactic acidosis due to metformin use. No sepsis History of CVA continue asa, statin DVT prophylaxis: Lovenox Full code Dispo-PT recommends acute rehab upon discharge continue hospital stay for IV antibiotics, close monitoring of wound, safe disposition Quality Stroke Does the patient have a stroke diagnosis?: No VTE Prior VTE?: No VTE Risk Level:: Medical - moderate - high VTE Device Contraindication: Treatment Not Indicated VTE Drug Contraindication: N/A - Med Ordered
--- NOTE | 2024-01-28 17:55 | PC.NURSE ---
Pt without BM in a few days. PO dulcolax given earlier today without effect. Dot Holbrook aware and will order additional medications
[2024-01-28] MEDS: Lactulose 20 GM/30 ML SOLUTION PO (18:07)
[2024-01-28 20:09] LABS: Glucose, Whole Blood 242 mg/dL (60-115)
[2024-01-28] MEDS: Enoxaparin Sodium 40 MG/0.4 ML SYRINGE SUBCUT (21:33)
[2024-01-28] MEDS: Atorvastatin Calcium 20 MG TABLET PO (21:34)
[2024-01-28] MEDS: Docusate Sodium 100 MG CAPSULE PO (21:34)
[2024-01-28 23:18] VITALS: BP 144/69; PULSE 87; RESP 18; TEMP 37.1; O2SAT 94
[2024-01-29] MEDS: Morphine Sulfate 4 MG/ML CARTRIDGE IVPUSH (01:12)
[2024-01-29] MEDS: Piperacillin Sodium/Tazobactam 4.5 GM in 0.9 % Sodium Chloride 100 ML IV ×4 (03:36→19:27)
[2024-01-29 07:13] VITALS: BP 174/80; PULSE 91; RESP 16; TEMP 36.3; O2SAT 98
[2024-01-29] MEDS: 0.9 % Sodium Chloride Flush 3 ML SYRINGE IVFLUSH ×3 (07:33→19:27)
[2024-01-29] MEDS: lisinopriL 10 MG TABLET PO (07:34)
[2024-01-29] MEDS: Aspirin Enteric Coated 81 MG TABLET.DR PO (07:34)
[2024-01-29] MEDS: amLODIPine Besylate 10 MG TABLET PO (07:34)
[2024-01-29] MEDS: polyethylene glycoL 3350 17 GM POWD.PACK PO (07:34)
[2024-01-29] MEDS: Docusate Sodium 100 MG CAPSULE PO (07:34)
[2024-01-29 07:38] LABS: Glucose, Whole Blood 126 mg/dL (60-115)
[2024-01-29 08:53] LABS: Vancomycin Random 17.1 mcg/mL (15-20)
[2024-01-29 08:54] LABS: Creatinine Clr Calc Pharmacy 78.1; Estimated Glomerular Filt Rate > 60
--- NOTE | 2024-01-29 11:01 | P.PNIM_ITS ---
Subjective Subjective Date of Service: 01/29/24 Interval History: Seen and examined this morning Follow-up for nonhealing wound status post right BKA No overnight events Feeling constipated Review of Systems Review of Systems: Yes all other systems are reviewed and are negative Constitutional Constitutional: Denies chills and Denies fever(s) Cardiovascular Cardiovascular: Denies chest pain, Denies palpitations and Denies dyspnea Respiratory Respiratory: Denies cough and Denies dyspnea Gastrointestinal Gastrointestinal: Denies abdominal pain Endocrine Endocrine: Denies palpitations Physical Exam 2 Vital Signs: Vital Signs: Last Vital Signs Temp 97.4 F 01/29/24 07:13 Pulse 91 01/29/24 07:13 Resp 16 01/29/24 07:13 BP 174/80 H 01/29/24 07:13 Pulse Ox 98 01/29/24 07:13 O2 Del Method Room Air 01/29/24 07:13 O2 Flow Rate 6 01/26/24 12:42 BMI result Body Mass Index 24.2 Const: General: cooperative, comfortable, alert and awake Nutritional Appearance: average body habitus Orientation/consciousness: patient oriented x3 Resp: Effort & Inspection: normal respiratory effort, able to speak in complete sentences, no respiratory distress and no use of accessory muscles Cardio: Rate: regular rate GI: Inspection: No distended Palpation (GI): Soft to palpation and nontender Skin: Other: right foot wrapped in c/d/i dressing Neuro: General: patient oriented x3, moves all extremities and CN's II-XI intact bilaterally Extrem: Other: s/p BKA - extremity wrapped in clean/dry/intact bandage Objective Data Active Medications Acetaminophen (Acetaminophen 325 Mg Tablet) 650 mg PO Q6H PRN PRN Reason: Pain, Mild (Pain Scale 1-3) Last Admin: 01/22/24 19:07 Dose: 650 mg Documented By: SAMI Amlodipine Besylate (Amlodipine Besylate 10 Mg Tablet) 10 mg PO DAILY [facility]; Protocol Last Admin: 01/29/24 07:34 Dose: 10 mg Documented By: MARILYN Aspirin (Aspirin Enteric Coated 81 Mg Tablet.) 81 mg PO DAILY [facility] Last Admin: 01/29/24 07:34 Dose: 81 mg Documented By: MARILYN Atorvastatin Calcium (Atorvastatin Calcium 20 Mg Tablet) 20 mg PO BEDTIME [facility] Last Admin: 01/28/24 21:34 Dose: 20 mg Documented By: RACHEL Bisacodyl (Bisacodyl 10 Mg Supp.Rect) 10 mg PA DAILY PRN PRN Reason: Constipation Docusate Sodium (Docusate Sodium 100 Mg Capsule) 100 mg PO BID [facility] Last Admin: 01/29/24 07:34 Dose: 100 mg Documented By: MARILYN Enoxaparin Sodium (Enoxaparin Sodium 40 Mg/0.4 Ml Syringe) 40 mg SUBCUT Q24H [facility] Last Admin: 01/28/24 21:33 Dose: 40 mg Documented By: RACHEL Glucose (Glucose Gel 15 Gm Gel..Gram.) 15 gm PO Q15M PRN; Protocol PRN Reason: per Hypoglycemia Standing Ord. Dextrose (D10) 250 mls @ 750 mls/hr IV Q15M PRN; Protocol PRN Reason: per Hypoglycemia Standing Ord. Piperacillin Sod/Tazobactam (Sod 4.5 gm/ Sodium Chloride) 100 mls @ 200 mls/hr IV Q6H [facility] Last Infusion: 01/29/24 08:21 Dose: Infused Documented By: MARILYN Vancomycin HCl 1,250 mg/ (Sodium Chloride) 250 mls @ 166.667 mls/hr IV Q12H [facility] Insulin Human Lispro (Insulin Lispro 100 Unit/Ml 3 Ml Vial) 0 unit SUBCUT QIDACHS [facility]; Protocol Last Admin: 01/29/24 07:34 Dose: Not Given Documented By: MARILYN Non-Admin Reason: No Insulin Coverage Lisinopril (Lisinopril 10 Mg Tablet) 10 mg PO DAILY [facility]; Protocol Last Admin: 01/29/24 07:34 Dose: 10 mg Documented By: MARILYN Melatonin (Melatonin 3 Mg Tablet) 6 mg PO BEDTIME PRN PRN Reason: Insomnia Last Admin: 01/22/24 19:08 Dose: 6 mg Documented By: SAMI Morphine Sulfate (Morphine Sulfate 4 Mg/Ml Cartridge) 4 mg IVPUSH Q2H PRN; Protocol PRN Reason: Pain, Severe (Pain Scale 7-10) Last Admin: 01/29/24 01:12 Dose: 4 mg Documented By: RACHEL Ondansetron HCl (Ondansetron Hcl 4 Mg/2 Ml Vial) 4 mg IVPUSH Q8H PRN PRN Reason: Nausea and Vomiting Polyethylene Glycol (Polyethylene Glycol 3350 17 Gm Powd.Pack) 17 gm PO BID [facility] Last Admin: 01/29/24 07:34 Dose: 17 gm Documented By: MARILYN Sodium Biphosphate/Sodium Phosphate (Sodium Phosphate,[place]-Dibasic 133 Ml Enema) 133 ml PA ONCE PRN PRN Reason: constipation Sodium Chloride (0.9 % Sodium Chloride Flush 3 Ml Syringe) 3 ml IVFLUSH QSHIFT [facility] Last Admin: 01/29/24 07:33 Dose: 3 ml Documented By: MARILYN Labs 01/28/24 07:55 01/29/24 08:16 Labs: Laboratory Results - last 24 hr 01/28/24 01/28/24 01/28/24 11:51 16:08 20:02 Hold Purple Top Estim Creat Clear Calc Estimated GFR POC Glucose 232 H 171 H 242 H Random Vancomycin 01/29/24 01/29/24 07:10 08:16 Hold Purple Top SEE NOTE Estim Creat Clear Calc 78.1 Estimated GFR > 60 POC Glucose 126 H Random Vancomycin 17.1 Assessment and Plan (1) Acute blood loss anemia: Status: Acute (2) PAD (peripheral artery disease): Status: Acute Plan This is a 73-year-old male with pertinent history of peripheral vascular disease status post right 2nd toe amputation, non insulin-dependent diabetes mellitus, essential hypertension, mixed hyperlipidemia, history of CVA who presents to the emergency department for concerns of right foot infection. Purulent cellulitis and diabetic foot infection of right foot Underwent amputation of right 2nd toe on 01/09/24 then R TMA 01/19; with poor healing subsequently underwent right BKA 01/25 continue vanco and zosyn Plan for dressing change on Tuesday and likely transfer to acute rehab pain control; bowel regimen Acute on chronic normocytic anemia Likely due to acute blood loss from surgery s/p 1U of blood with improvement in H/H Prp-udafuho-sqzuwkqwn type 2 diabetes mellitus with hyperglycemia ss, ada diet hold metformin Essential hypertension Continue home antihypertensives, norvasc and lisinopril Acute lactic acidosis due to metformin use. No sepsis History of CVA continue asa, statin DVT prophylaxis: Lovenox Full code Dispo-PT recommends acute rehab upon discharge continue hospital stay for IV antibiotics, close monitoring of wound, safe disposition Quality Stroke Does the patient have a stroke diagnosis?: No VTE Prior VTE?: No VTE Risk Level:: Medical - moderate - high VTE Device Contraindication: Treatment Not Indicated VTE Drug Contraindication: N/A - Med Ordered
[2024-01-29 11:15] LABS: Glucose, Whole Blood 188 mg/dL (60-115)
[2024-01-29 11:30] VITALS: O2SAT 97
[2024-01-29] MEDS: Insulin Lispro 100 UNIT/ML 3 ML VIAL SUBCUT ×3 (11:34→20:24)
[2024-01-29] MEDS: bisacodyL 10 MG SUPP.RECT PR (11:35)
[2024-01-29 15:07] VITALS: BP 140/73; PULSE 92; RESP 16; TEMP 36.5; O2SAT 98
[2024-01-29] MEDS: vancomycin HCL 1,250 MG in 0.9 % Sodium Chloride 250 ML 166.67 MG IV (15:12)
[2024-01-29 16:17] LABS: Glucose, Whole Blood 273 mg/dL (60-115)
[2024-01-29] MEDS: Atorvastatin Calcium 20 MG TABLET PO (19:26)
[2024-01-29] MEDS: Enoxaparin Sodium 40 MG/0.4 ML SYRINGE SUBCUT (19:26)
[2024-01-29 19:42] VITALS: BP 120/62; PULSE 95; RESP 16; TEMP 37.3; O2SAT 98
[2024-01-29 20:10] LABS: Glucose, Whole Blood 215 mg/dL (60-115)
[2024-01-29 22:59] VITALS: BP 130/75; PULSE 84; RESP 16; TEMP 36.1; O2SAT 97
[2024-01-30] MEDS: Piperacillin Sodium/Tazobactam 4.5 GM in 0.9 % Sodium Chloride 100 ML IV ×3 (02:30→13:33)
[2024-01-30] MEDS: vancomycin HCL 1,250 MG in 0.9 % Sodium Chloride 250 ML 166.67 MG IV (03:01)
[2024-01-30 05:54] LABS: Hematocrit 26.9 % (42.0-52.0); Hemoglobin 8.5 g/dl (14.0-18.0)
[2024-01-30 06:14] LABS: Creatinine Clr Calc Pharmacy 83.9; Estimated Glomerular Filt Rate > 60
[2024-01-30 08:00] VITALS: BP 132/74; PULSE 96; RESP 18; TEMP 36.8; O2SAT 95
[2024-01-30 08:00] LABS: Glucose, Whole Blood 139 mg/dL (60-115)
--- NOTE | 2024-01-30 09:33 | MHC.CM.PN ---
[facility] UPDATED IN [facility]. PATIENT IS MEDICALLY READY FOR DC TODAY. [facility] WAS GOING FOR AUTH TO ADMIT. CASE MANAGEMENT FOLLOWING.
[2024-01-30 09:50] VITALS: BP 132/74
[2024-01-30] MEDS: lisinopriL 10 MG TABLET PO (09:50)
[2024-01-30] MEDS: Docusate Sodium 100 MG CAPSULE PO ×2 (09:50→19:20)
[2024-01-30] MEDS: amLODIPine Besylate 10 MG TABLET PO (09:50)
[2024-01-30] MEDS: Aspirin Enteric Coated 81 MG TABLET.DR PO (09:51)
[2024-01-30] MEDS: 0.9 % Sodium Chloride Flush 3 ML SYRINGE IVFLUSH ×2 (09:52→17:21)
--- NOTE | 2024-01-30 11:32 | MHC.CM.PN ---
Addendum entered by Ashanti Peter RN 01/30/24 16:08: [facility] now asking for updated PT note, not seen by PT today. Will be seen tomorrow. CM will continue to follow. Addendum entered by Ashanti Peter RN 01/30/24 15:54: IMM WAS DELIVERED. Addendum entered by Ashanti Peter RN 01/30/24 15:37: [facility] has denied acute rehab, but stated they will approve STR. Patient and do not wish to appeal. Prefer [facility] for STR who has accepted and submitted for auth. CM will continue to follow. Original Note: EMR reviewed. Per MD rounds patient is cleared for dc to [facility], pending auth @ [facility]. updated. CM will continue to follow.
[2024-01-30 11:48] LABS: Glucose, Whole Blood 270 mg/dL (60-115)
[2024-01-30 12:00] VITALS: O2SAT 97
[2024-01-30] MEDS: Insulin Lispro 100 UNIT/ML 3 ML VIAL SUBCUT ×3 (12:30→21:07)
--- NOTE | 2024-01-30 13:24 | HO.VASCPN ---
Subjective Subjective Date of Service: 01/30/24 Patient reports: no new complaints, feels better and pain is less Interval history: Very pleasant 73-year-old gentleman status post BKA. He appears to be doing significantly better. He reports that the pain is much better controlled. He only reports some mild itching under the dressing other than that has been doing extremely well. Is anxious to be discharged. Family is at bedside. Physical Exam Vital Signs: Vital Signs: Last Vital Signs Temp 98.3 F 01/30/24 08:00 Pulse 96 01/30/24 08:00 Resp 18 01/30/24 08:00 BP 132/74 01/30/24 09:50 Pulse Ox 97 01/30/24 12:00 O2 Del Method Room Air 01/30/24 12:00 O2 Flow Rate 6 01/26/24 12:42 BMI result Body Mass Index 24.2 Const: General: cooperative, healthy appearing and comfortable Orientation/consciousness: oriented to person, oriented to place and oriented to time HEENT: Head: Yes normal to inspection Neck: Neck: Yes normal visual inspection Carotids: no bruits Chest: Chest palpation & inspection: normal inspection of the chest Resp: Effort & Inspection: normal respiratory effort and able to speak in complete sentences Auscultation: clear to auscultation bilaterally, no crackles, no rales, no rhonchi and no wheezes Cardio: Rate: regular rate Rhythm: regular rhythm Heart sounds: S1 normal heart sound present and S2 normal heart sound present Bruits: no carotid bruits Peripheral pulses: Peripheral pulses 2+ throughout GI: Inspection: Yes normal to inspection Skin: Other: Amp site healing well Wounds: no wounds Hair: normal Neuro: General: oriented to person, oriented to place and oriented to time Cranial nerves: Yes CN's II-XII intact bilaterally and Yes Normal hearing present Cognition (Neuro): normal cognition Motor exam (neuro): 5/5 motor strength present throughout Extrem: Other: venous exam: No significant superficial varicosities or spider telangiectasias, minimal edema General: No clubbing, No cyanosis and No edema Psych: Appearance: grossly normal Mental Status: mental status grossly normal Speech and movement: Normal speech and movement present Progress Note: A&P Assessment and plan (1) PAD (peripheral artery disease): Status: Acute Assessment and Plan: In short patient is doing extremely well status post BKA. Dressing orders were written. Patient is stable from my perspective for discharge. He can see me as an outpatient in approximately 2-3 weeks time. Thank you for allowing us to assist in his care. If there are any questions or concerns please do not hesitate to contact us Time Spent With Patient Time: Total time managing care of this patient today ____ minutes. Procedures Date of Service Date of Service: 01/30/24 Quality Stroke Does the patient have a stroke diagnosis?: No VTE Prior VTE?: No VTE Risk Level:: Medical - moderate - high VTE Device Contraindication: Treatment Not Indicated VTE Drug Contraindication: N/A - Med Ordered
[2024-01-30 14:37] LABS: Vancomycin Random 16.6 mcg/mL (15-20)
--- NOTE | 2024-01-30 14:51 | HE.PHANOTE ---
RE GERALD Patients level came back this evening at 16.6. Continue at current dose. Patient within AUC goal. Next level tomorrow 01/30 @1400
--- NOTE | 2024-01-30 15:05 | HO.PM.IMPN ---
Subjective Subjective Date of Service: 01/30/24 Interval History: Seen and examined this morning Follow-up for nonhealing wound status post right BKA No overnight events Review of Systems Review of Systems: Yes all other systems are reviewed and are negative Constitutional Constitutional: Denies chills and Denies fever(s) Cardiovascular Cardiovascular: Denies chest pain, Denies palpitations and Denies dyspnea Respiratory Respiratory: Denies cough and Denies dyspnea Gastrointestinal Gastrointestinal: Denies abdominal pain Endocrine Endocrine: Denies palpitations Physical Exam Vital Signs: Vital Signs: Last Vital Signs Temp 98.3 F 01/30/24 08:00 Pulse 96 01/30/24 08:00 Resp 18 01/30/24 08:00 BP 132/74 01/30/24 09:50 Pulse Ox 97 01/30/24 12:00 O2 Del Method Room Air 01/30/24 12:00 O2 Flow Rate 6 01/26/24 12:42 BMI result Body Mass Index 24.2 Appearing in no acute distress lung sounds are clear to auscultation heart regular rate rhythm, clear S1, S2 positive bowel sounds, abdomen is soft, nontender neuro patient is alert x3, no focal deficits surgical dressing to right BKA Objective Data Active Medications Acetaminophen (Acetaminophen 325 Mg Tablet) 650 mg PO Q6H PRN PRN Reason: Pain, Mild (Pain Scale 1-3) Last Admin: 01/22/24 19:07 Dose: 650 mg Documented By: SAMI Amlodipine Besylate (Amlodipine Besylate 10 Mg Tablet) 10 mg PO DAILY [facility]; Protocol Last Admin: 01/30/24 09:50 Dose: 10 mg Documented By: DANITZA Aspirin (Aspirin Enteric Coated 81 Mg Tablet.Dr) 81 mg PO DAILY [facility] Last Admin: 01/30/24 09:51 Dose: 81 mg Documented By: DANITZA Atorvastatin Calcium (Atorvastatin Calcium 20 Mg Tablet) 20 mg PO BEDTIME [facility] Last Admin: 01/29/24 19:26 Dose: 20 mg Documented By: SAMI Bisacodyl (Bisacodyl 10 Mg Supp.Rect) 10 mg AK DAILY PRN PRN Reason: Constipation Last Admin: 01/29/24 11:35 Dose: 10 mg Documented By: MARILYN Docusate Sodium (Docusate Sodium 100 Mg Capsule) 100 mg PO BID [facility] Last Admin: 01/30/24 09:50 Dose: 100 mg Documented By: DANITZA Enoxaparin Sodium (Enoxaparin Sodium 40 Mg/0.4 Ml Syringe) 40 mg SUBCUT Q24H [facility] Last Admin: 01/29/24 19:26 Dose: 40 mg Documented By: SAMI Glucose (Glucose Gel 15 Gm Gel..Gram.) 15 gm PO Q15M PRN; Protocol PRN Reason: per Hypoglycemia Standing Ord. Dextrose (D10) 250 mls @ 750 mls/hr IV Q15M PRN; Protocol PRN Reason: per Hypoglycemia Standing Ord. Piperacillin Sod/Tazobactam (Sod 4.5 gm/ Sodium Chloride) 100 mls @ 200 mls/hr IV Q6H [facility] Last Infusion: 01/30/24 14:23 Dose: Infused Documented By: DANITZA Vancomycin HCl 1,250 mg/ (Sodium Chloride) 250 mls @ 166.667 mls/hr IV Q12H [facility] Last Infusion: 01/30/24 04:33 Dose: Infused Documented By: SAMI Insulin Human Lispro (Insulin Lispro 100 Unit/Ml 3 Ml Vial) 0 unit SUBCUT QIDACHS [facility]; Protocol Last Admin: 01/30/24 12:30 Dose: 6 unit Documented By: DANITZA Lisinopril (Lisinopril 10 Mg Tablet) 10 mg PO DAILY [facility]; Protocol Last Admin: 01/30/24 09:50 Dose: 10 mg Documented By: DANITZA Melatonin (Melatonin 3 Mg Tablet) 6 mg PO BEDTIME PRN PRN Reason: Insomnia Last Admin: 01/22/24 19:08 Dose: 6 mg Documented By: SAMI Morphine Sulfate (Morphine Sulfate 4 Mg/Ml Cartridge) 2 mg IVPUSH Q2H PRN; Protocol PRN Reason: Pain, Severe (Pain Scale 7-10) Ondansetron HCl (Ondansetron Hcl 4 Mg/2 Ml Vial) 4 mg IVPUSH Q8H PRN PRN Reason: Nausea and Vomiting Oxycodone HCl (Oxycodone Hcl Immed Release 5 Mg Tablet) 5 mg PO Q6H PRN PRN Reason: Pain, Moderate(Pain Scale 4-6) Polyethylene Glycol (Polyethylene Glycol 3350 17 Gm Powd.Pack) 17 gm PO BID [facility] Last Admin: 01/30/24 09:53 Dose: Not Given Documented By: DANITZA Non-Admin Reason: Patient Refused Sodium Biphosphate/Sodium Phosphate (Sodium Phosphate,Wolfe-Dibasic 133 Ml Enema) 133 ml AK ONCE PRN PRN Reason: constipation Sodium Chloride (0.9 % Sodium Chloride Flush 3 Ml Syringe) 3 ml IVFLUSH QSHIFT ROSENDO Last Admin: 01/30/24 09:52 Dose: 3 ml Documented By: DANITZA Labs 01/30/24 05:31 01/30/24 05:31 Labs: Laboratory Results - last 24 hr 01/29/24 01/29/24 01/30/24 16:10 19:44 05:31 Estim Creat Clear Calc 83.9 Estimated GFR > 60 POC Glucose 273 H 215 H Random Vancomycin 01/30/24 01/30/24 01/30/24 07:55 11:44 14:14 Estim Creat Clear Calc Estimated GFR POC Glucose 139 H 270 H Random Vancomycin 16.6 Assessment and Plan (1) Acute blood loss anemia: Status: Acute (2) PAD (peripheral artery disease): Status: Acute Plan This is a 73-year-old male with pertinent history of peripheral vascular disease status post right 2nd toe amputation, non insulin-dependent diabetes mellitus, essential hypertension, mixed hyperlipidemia, history of CVA who presents to the emergency department for concerns of right foot infection. Purulent cellulitis and diabetic foot infection of right foot Underwent amputation of right 2nd toe on 01/09/24 then R TMA 01/19; with poor healing subsequently underwent right BKA 01/25 s/p vanco and zosyn pain control; bowel regimen Acute on chronic normocytic anemia Likely due to acute blood loss from surgery s/p 1U of blood with improvement in H/H Ruk-[id number]-[id number] type 2 diabetes mellitus with hyperglycemia ss, ada diet hold metformin Essential hypertension Continue norvasc and lisinopril Acute lactic acidosis due to metformin use. No sepsis History of CVA continue asa, statin DVT prophylaxis: Lovenox Full code Attending Dr. García Dispo-PT recommends STR, awaiting available bed continue hospital stay for IV antibiotics, close monitoring of wound, safe disposition Quality Stroke Does the patient have a stroke diagnosis?: No VTE Prior VTE?: No VTE Risk Level:: Medical - moderate - high VTE Device Contraindication: Treatment Not Indicated VTE Drug Contraindication: N/A - Med Ordered
[2024-01-30 15:48] VITALS: BP 111/55; PULSE 84; RESP 18; TEMP 36.8; O2SAT 98
[2024-01-30 16:14] LABS: Glucose, Whole Blood 273 mg/dL (60-115)
[2024-01-30] MEDS: oxyCODONE HCl Immed Release 5 MG TABLET PO (17:20)
[2024-01-30] MEDS: polyethylene glycoL 3350 17 GM POWD.PACK PO (19:18)
[2024-01-30] MEDS: Enoxaparin Sodium 40 MG/0.4 ML SYRINGE SUBCUT (19:19)
[2024-01-30] MEDS: Atorvastatin Calcium 20 MG TABLET PO (19:20)
[2024-01-30 19:48] VITALS: BP 116/58; PULSE 90; RESP 16; TEMP 36.1; O2SAT 98
[2024-01-30 19:54] LABS: Glucose, Whole Blood 283 mg/dL (60-115)
[2024-01-31 06:45] LABS: Creatinine Clr Calc Pharmacy 95.7; Estimated Glomerular Filt Rate > 60
[2024-01-31 07:09] VITALS: BP 141/67; PULSE 84; RESP 16; TEMP 37.2; O2SAT 97
[2024-01-31 07:19] LABS: Glucose, Whole Blood 159 mg/dL (60-115)
[2024-01-31 08:16] VITALS: BP 141/67
[2024-01-31] MEDS: amLODIPine Besylate 10 MG TABLET PO (08:16)
[2024-01-31 08:17] VITALS: BP 141/67
[2024-01-31] MEDS: lisinopriL 10 MG TABLET PO (08:17)
[2024-01-31] MEDS: Aspirin Enteric Coated 81 MG TABLET.DR PO (08:17)
[2024-01-31] MEDS: Insulin Lispro 100 UNIT/ML 3 ML VIAL SUBCUT (08:17)
[2024-01-31] MEDS: 0.9 % Sodium Chloride Flush 3 ML SYRINGE IVFLUSH (08:17)
[2024-01-31] MEDS: Docusate Sodium 100 MG CAPSULE PO (08:18)
--- NOTE | 2024-01-31 08:44 | MHC.CM.PN ---
CM met with patient, and PT at bedside. Patient and would like for patient to return home w/ family support & [facility] for SN/PT. 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 Adult children live nearby and are available to assist. Patient has wheel chair, crutches, and shower chair in the home. BLS transportation scheduled for 11am. Patient, , RN, and SURVEYOR HELPER ROD aware. [facility] also made aware of dc. IMM was delivered 01/29.
== END 2024-01-31 10:52 | disposition home health service (06) | DRG 475 ==
LOC: HO.ED 19:22 → HO.EDOVER 21:45 → HO.S3 01-17 07:33
PROVIDERS: Physician Assistant; Physician Assistant Medical; Surgery Vascular Surgery; Admitting Provider Student in an Organized Health Care Education/Training Program; Emergency Provider Emergency Medicine Emergency Medical Services; PCP Physician Assistant; Visit Provider Nurse Practitioner Acute Care
PROC: 0Y6P0Z0 Detachment at Right 1st Toe, Complete, Open Approach (ICD-10-PCS; CPT 28805; principal; 2024-01-20 13:00)
PROC: 0Y6H0Z2 Detachment at Right Lower Leg, Mid, Open Approach (ICD-10-PCS; CPT 27880; principal; 2024-01-26 11:00)
DX: T87.43 Infection of amputation stump, right lower extremity (principal); D62 Acute posthemorrhagic anemia; E11.52 Type 2 diabetes mellitus with diabetic peripheral angiopathy with gangrene; E87.21 Acute metabolic acidosis; L03.115 Cellulitis of right lower limb; E11.65 Type 2 diabetes mellitus with hyperglycemia; E11.628 Type 2 diabetes mellitus with other skin complications; T87.81 Dehiscence of amputation stump; I10 Essential (primary) hypertension; E78.2 Mixed hyperlipidemia; Z20.822 Contact with and (suspected) exposure to COVID-19; Z86.73 Personal history of transient ischemic attack (TIA), and cerebral infarction without residual deficits; Z79.82 Long term (current) use of aspirin; Z79.84 Long term (current) use of oral hypoglycemic drugs; Z79.899 Other long term (current) drug therapy
CPT/HCPCS: 0241U; 36415; 71045; 73630; 80048; 80053; 80202; 81001; 81003; 82565; 82728; 82947; 83540; 83605; 83735; 85014; 85018; 85025; 85027; 85652; 86140; 86850; 86900; 86901; 86923; 87040; 88305; 88307; 88311; 93926; 97110; 97116; 97162; 97166; 97530; 97535; 99285; J0131; J1650; J2270; J2371; J2405; J2543; J2704; J2795; J3010; J3370; J3371; P9016

== ENCOUNTER → 2024-01-16 17:59 | Outpatient (BNV) | payer MEDICARE, SELFPAY | PROVIDERS: Emergency Provider Emergency Medicine Emergency Medical Services; PCP Physician Assistant; Visit Provider Student in an Organized Health Care Education/Training Program | DX: I73.9 Peripheral vascular disease, unspecified (principal); L03.115 Cellulitis of right lower limb; D62 Acute posthemorrhagic anemia | CPT/HCPCS: 99222; 99232; 99233; 99239; G0180 ==

== ENCOUNTER → 2024-01-16 20:18 | Outpatient (BNV) | payer MEDICARE, SELFPAY | PROVIDERS: Admitting Provider Student in an Organized Health Care Education/Training Program; Emergency Provider Emergency Medicine Emergency Medical Services; PCP Physician Assistant; Visit Provider Surgery Vascular Surgery | DX: I73.9 Peripheral vascular disease, unspecified (principal) | CPT/HCPCS: 27880; 28805; 99024; 99212; 99499 ==

== ENCOUNTER 2024-02-04 15:44 | Emergency (ER) | payer MEDICARE, SELFPAY ==
--- NOTE | ~2024-02-04 | XR_ITS ---
EXAMINATION: XR KNEE, RIGHT CLINICAL INFORMATION: Pain status post fall COMPARISON: None available. TECHNIQUE: Two views of the right knee. FINDINGS: Postop changes. Skin bart noted. Monckeberg calcifications just in diabetes. No knee effusion or evidence for any acute deformity. Generalized spurring. XR/XR knee RT 2V IMPRESSION: No acute findings. Postoperative below knee amputation changes.
[2024-02-04 15:51] VITALS: BP 130/86; PULSE 84
[2024-02-04 15:53] VITALS: BMI 22.0
[2024-02-04 15:56] VITALS: BP 131/74; PULSE 93; RESP 18; TEMP 36.4; O2SAT 97
[2024-02-04 16:18] LABS: MANUAL DIFF FLAG NO
[2024-02-04 16:20] LABS: Basophils Percent Auto 0.2 % (0-2); Eosinophils Absolute Auto 0.1 X10*3/uL (0.0-0.4); Hematocrit 27.7 % (42.0-52.0); Imm Gran Abs Auto 0.02 X10*3/uL (0.00-0.03); Imm Gran Pct Auto 0.4 % (0.0-0.4); Lymphocytes Percent Auto 19.8 % (20-40); Mean Corpuscular HGB Conc 32.5 g/dl (31.0-36.0); Mean Corpuscular Hemoglobin 29.1 pg (27.0-33.0); Mean Corpuscular Volume 89.6 fL (80.0-98.0); Mean Platelet Volume 8.7 fL (9.4-12.4); Monocytes Absolute Auto 0.3 X10*3/uL (0.1-1.2); Monocytes Percent Auto 6.6 % (2-11); Neutrophils Absolute Auto 3.6 x10*3/uL (2.0-8.3); Platelet Count 496 X10*3/uL (160-400); Red Blood Count 3.09 X10*6/uL (4.60-5.80); Red Cell Distribution Width 13.5 % (11.0-16.0)
[2024-02-04 16:36] LABS: Alanine Aminotransferase 24 U/L (0-40); Albumin Level 3.3 g/dL (3.5-5.0); Alkaline Phosphatase 96 U/L (39-117); Anion Gap 14 (12-20); Aspartate Amino Transferase 19 U/L (5-37); Bilirubin Total 0.2 mg/dL (0.0-1.0); Blood Urea Nitrogen 9 mg/dL (9-16); Calcium 8.7 mg/dL (8.4-10.2); Carbon Dioxide 23 mmol/L (22-29); Chloride 102 mmol/L (96-108); Creatinine Clr Calc Pharmacy 81.7; Estimated Glomerular Filt Rate > 60; Glucose Random 299 mg/dL (60-115); Sodium 135 mmol/L (135-145); Total Protein 7.6 g/dL (6.5-8.0)
--- NOTE | 2024-02-04 17:32 | ED_ITS ---
HPI - General Adult General Chief complaint: Fall Stated complaint: fall, recently amputated legs Time Seen by Provider: 02/04/24 16:07 History of Present Illness HPI narrative: patient is 3 weeks post right below-knee amputation, was walking to bathroom with assistance and when he turned around to face the toilet he fell over and put out his right leg and landed on the stump which started bleeding and now it is mildly painful, he denies any other injury did not hit his head he did hurt his neck no neck pain no back pain no headache no loss of consciousness no other extremity injuries no rib pain no chest pain no fainting or feeling faint no abdominal pain no nausea or vomiting Related Data Home Medications ?Medication ?Instructions ?Recorded ?Confirmed simvastatin 40 mg tablet 40 mg PO BEDTIME 12/19/23 01/16/24 acetaminophen 500 mg tablet 500 mg PO Q6H PRN Pain 01/16/24 01/16/24 (Tylenol Extra Strength) semaglutide 0.25 mg or 0.5 mg (2 0.5 mg subcut QWEEK 01/26/24 01/26/24 mg/3 mL) subcutaneous pen injector (Ozempic) Previous Rx's ?Medication ?Instructions ?Recorded aspirin 81 mg tablet,delayed 81 mg PO DAILY 90 days #90 tabs 11/08/22 release blood sugar diagnostic (FreeStyle #100 ea 01/03/23 Lite Strips) blood-glucose meter (FreeStyle #1 ea 01/03/23 Lite Meter kit) blood-glucose sensor (Dexcom G7 #3 ea 04/26/23 Sensor device) metformin 1,000 mg tablet 1,000 mg PO BID 90 days #180 tabs 06/17/23 amlodipine 10 mg tablet 10 mg PO DAILY #90 tabs 06/27/23 walker #1 ea 09/09/23 walker #1 ea 09/09/23 lisinopril 10 mg tablet 10 mg PO DAILY 90 days #90 tabs 12/28/23 oxycodone 10 mg tablet 10 mg PO Q8H PRN pain #12 tabs 01/23/24 chair, wheel (Wheel chair) #1 ea 01/25/24 Allergies Allergy/AdvReac Type Severity Reaction Status Date / Time sitagliptin [From SEPUVIA] Allergy Unknown vomitting Verified 02/04/24 15:54 dulaglutide [From Trulicity] AdvReac Intermediate Rash Verified 02/04/24 15:54 pioglitazone [From Actos] AdvReac Intermediate palpatation Verified 02/04/24 15:54 s PMFSH Past Medical History Source: nursing notes reviewed Medical History Other and unspecified hyperlipidemia Essential hypertension Type 2 diabetes mellitus with unspecified complications Allergic rhinitis Stroke Nausea & vomiting Hospital discharge follow-up Atypical chest pain Diabetes Hyperlipidemia HTN (hypertension) Surgical History Hx of colonoscopy Family History Family History Father No problems noted. Mother Myocardial infarction Sister Diabetes Hypertension Social History Social History Household Members: Spouse Housing: House Do you presently have visiting nurse or other home services: No Alcohol intake: current Alcohol intake frequency: holidays/special occasions only Alcohol type: beer Patient Tobacco Use Status: Never used Tobacco Smoked in Last 30 Days: No e-Cigarette/Vaping Use: Never Used Second Hand Smoke Exposure: No Use of substances other than those prescribed or required for medical reasons: No Advance Directives: Yes Advance Directives on File: Yes Advance Directives Date on File: 12/22/23 Do you have a plan to hurt others: No Plan service: No Current occupational status: retired Cognitive needs: No Hearing needs: No Vision needs: No Physical Exam ED Vital Signs: Vital Signs - 24 hr 02/04/24 15:56 02/04/24 18:55 Temperature 97.5 F 97.8 F Pulse Rate 93 95 Respiratory Rate 18 20 Blood Pressure 131/74 153/75 H Pulse Oximetry 97 98 Oxygen Delivery Method Room Air Room Air BMI result Body Mass Index 22.0 general appearance cooperative no acute distress comfortable Head is normocephalic atraumatic Neck is supple nontender Chest wall is nontender Abdomen soft nontender The back no tenderness and comfortable range of motion Extremities full range of motion x4 Right below-knee amputation stump has bart in place and and has some scant bleeding, bart a retained in place, color is good, there is no redness no ecchymosis no significant tenderness no swelling, the knee has full range of motion Course Course Course Narrative: patient who fell onto his stump and had some bleeding which has stopped controlled with a bandage, sutures still in place X-ray did not show any fracture of the stump or the knee and patient remains comfortable without any signficant complaint during ER visit He is discharged home Is glucose of 290 was noted and he did not take his afternoon metformin he is mentating normally with normal vital signs Medical Decision Making Lab Data MDM Lab Attestation statement: I reviewed the patient's lab results. 02/04/24 16:13 02/04/24 16:13 Labs: Lab Results 02/04/24 Range/Units 16:13 WBC 5.0 (4.8-10.8) X10*3/uL RBC 3.09 L (4.60-5.80) X10*6/uL Hgb 9.0 L (14.0-18.0) g/dl Hct 27.7 L (42.0-52.0) % MCV 89.6 (80.0-98.0) fL MCH 29.1 (27.0-33.0) pg MCHC 32.5 (31.0-36.0) g/dl RDW 13.5 (11.0-16.0) % Plt Count 496 H (160-400) X10*3/uL MPV 8.7 L (9.4-12.4) fL Immature Gran % (Auto) 0.4 (0.0-0.4) % Neut % (Auto) 71.0 (45-73) % Lymph % (Auto) 19.8 L (20-40) % [place] % (Auto) 6.6 (2-11) % Eos % (Auto) 2.0 (0-4) % Baso % (Auto) 0.2 (0-2) % Lymph # (Auto) 1.0 L (1.2-4.9) X10*3/uL [place] # (Auto) 0.3 (0.1-1.2) X10*3/uL Eos # (Auto) 0.1 (0.0-0.4) X10*3/uL Baso # (Auto) 0.0 (0.0-0.2) X10*3/uL Abs Immat Gran (auto) 0.02 (0.00-0.03) X10*3/uL Absolute Neuts (auto) 3.6 (2.0-8.3) x10*3/uL Absolute Nucleated RBC 0.000 (0.0-0.012) X10*3/uL Nucleated RBC % (auto) 0.0 (0.0-0.2) /100WBC Sodium 135 (135-145) mmol/L Potassium 4.0 (3.3-5.1) mmol/L Chloride 102 (96-108) mmol/L Carbon Dioxide 23 (22-29) mmol/L Anion Gap 14 (12-20) BUN 9 (9-16) mg/dL Creatinine 0.79 (0.5-1.4) mg/dL Estim Creat Clear Calc 81.7 Estimated GFR > 60 Random Glucose 299 H (60-115) mg/dL Calcium 8.7 (8.4-10.2) mg/dL Total Bilirubin 0.2 (0.0-1.0) mg/dL AST 19 (5-37) U/L ALT 24 (0-40) U/L Alkaline Phosphatase 96 (39-117) U/L Total Protein 7.6 (6.5-8.0) g/dL Albumin 3.3 L (3.5-5.0) g/dL Discharge Plan Discharge Clinical Impression: Visit for wound check, Fall Patient Disposition: Home, Self-Care Additional Instructions: bleeding was controlled with a dressing, so no further suturing or stapling was done X-ray did not show any broken bone No sign of any dangerous or worrisome injury from the fall Return any time any worse condition or concerns Follow with your doctor Prescriptions: No Action aspirin 81 mg tablet,delayed release (DR/EC) 81 mg PO DAILY 90 Days Qty: 90 4RF (DME) blood-glucose meter [FreeStyle Lite Meter] Kit See Rx Instructions .Route Qty: 1 0RF Rx Instructions: As directed tests 4 X/day (DME) FreeStyle Lite Strips Strip See Rx Instructions .Route Qty: 100 4RF Rx Instructions: As directed tests 4 X/day metformin 1,000 mg tablet 1,000 mg PO BID 90 Days Qty: 180 1RF Hold Instructions: Resume on 12/23/23. (DME) prabhjot Ashraf See Rx Instructions .MEDSUPPLY Qty: 1 0RF Rx Instructions: Folding Front wheeled walker (DME) walker Misc See Rx Instructions .MEDSUPPLY Qty: 1 0RF Rx Instructions: Folding Front wheeled walker lisinopril 10 mg tablet 10 mg PO DAILY 90 Days Qty: 90 1RF simvastatin 40 mg tablet 40 mg PO BEDTIME acetaminophen [Tylenol Extra Strength] 500 mg Tablet 500 mg PO Q6H PRN (Reason: Pain) oxycodone 10 mg tablet 10 mg PO Q8H PRN (Reason: pain) Qty: 12 0RF Rx Instructions: Partial Fill upon patient request. (DME) Wheel chair Kit See Rx Instructions .Route Qty: 1 0RF Rx Instructions: As directed Ozempic 0.25 mg or 0.5 mg (2 mg/3 mL) pen injector 0.5 mg subcut QWEEK amlodipine 10 mg tablet 10 mg PO DAILY Qty: 90 1RF (DME) Dexcom G7 Sensor Device See Rx Instructions .Route Qty: 3 4RF Rx Instructions: As directed change every 10 days Print Language: Namibian
--- NOTE | 2024-02-04 17:52 | PC.NURSE ---
xray being completed at this time.
[2024-02-04 18:55] VITALS: BP 153/75; PULSE 95; RESP 20; TEMP 36.6; O2SAT 98
[2024-02-04 19:02] VITALS: BP 153/75; PULSE 95; RESP 20; TEMP 36.6; O2SAT 98
== END 2024-02-04 20:38 | disposition home or self-care (01) ==
PROVIDERS: Emergency Provider Student in an Organized Health Care Education/Training Program; PCP Physician Assistant
DX: Z48.01 Encounter for change or removal of surgical wound dressing (principal); M79.604 Pain in right leg; Z91.81 History of falling; E11.9 Type 2 diabetes mellitus without complications; I10 Essential (primary) hypertension; E78.5 Hyperlipidemia, unspecified; Z89.511 Acquired absence of right leg below knee
CPT/HCPCS: 36415; 73560; 80053; 85025; 99283; 99284

== ENCOUNTER 2024-02-15 10:02 | Outpatient (AMB) | payer MEDICARE, SELFPAY ==
--- NOTE | 2024-02-15 10:04 | MHC.OFFVIS ---
Vital Signs 02/15/24 10:05 Height 5 ft 11 in Weight 157 lb BMI 21.9 Intake Visit Reasons: 2 week follow up bka Intake Note: 2 week follow up Right BKA 01/26/24. Pt states he is doing well, walking with his walker around the house, has PT and VNA once per week, family changes dressing QD or QOD PRN. Pt states he did have a fall at his house and stopped his ASA for 1 day, resumed after. Allergies sitagliptin [From JANUVIA] Allergy (Unknown, Verified 02/15/24 10:10) vomitting dulaglutide [From Trulicity] Adverse Reaction (Intermediate, Verified 02/15/24 10:10) Rash pioglitazone [From Actos] Adverse Reaction (Intermediate, Verified 02/15/24 10:10) palpatations HPI HPI 2 week follow up bka: Details: Very pleasant 73-year-old gentleman presents for follow-up status post right BKA. He appears to be doing extremely well. Pain and discomfort well controlled. [facility] Medical History (Updated 02/15/24 @ 10:26 by Tj Simpson MD) PAD (peripheral artery disease) Other and unspecified hyperlipidemia Essential hypertension Type 2 diabetes mellitus with unspecified complications Allergic rhinitis Stroke Nausea & vomiting Hospital discharge follow-up Atypical chest pain Diabetes Hyperlipidemia HTN (hypertension) Surgical History Hx of colonoscopy Family History Father No problems noted. Mother Myocardial infarction Sister Diabetes Hypertension Social History Household Members: Spouse Housing: House Do you presently have visiting nurse or other home services: No Alcohol intake: current Alcohol intake frequency: holidays/special occasions only Alcohol type: beer Patient Tobacco Use Status: Never used Tobacco e-Cigarette/Vaping Use: Never Used Second Hand Smoke Exposure: No Advance Directives Date on File: 12/22/23 service: No Current occupational status: retired Cognitive needs: No Hearing needs: No Vision needs: No Review of Systems Const All systems reviewed & are unremarkable except as noted in HPI and below Reports no additional complaints ENT Reports Normal hearing present Card Denies chest pain, Denies chest pain at rest, Denies chest pain with activity and Denies pedal edema Resp Denies cough GI Denies abdominal pain Musc Denies abnormal gait, Denies muscle cramps and Denies radiating pain into limb Skin/Breast Denies skin ulcer and Denies wounds Neuro Reports Normal hearing present and Denies abnormal gait Psych Reports no additional complaints Physical Exam Vital Signs: BMI result Body Mass Index 21.9 Const General: cooperative, healthy appearing and comfortable Orientation/consciousness: oriented to person, oriented to place and oriented to time HEENT Head: Yes normal to inspection Neck Neck: Yes normal visual inspection Carotids: no bruits Chest Chest palpation & inspection: normal inspection of the chest Resp Effort & Inspection: normal respiratory effort and able to speak in complete sentences Auscultation: clear to auscultation bilaterally, no crackles, no rales, no rhonchi and no wheezes Cardio Rate: regular rate Rhythm: regular rhythm Heart sounds: S1 normal heart sound present and S2 normal heart sound present Bruits: no carotid bruits Peripheral pulses: Peripheral pulses 2+ throughout GI Inspection: Yes normal to inspection Skin Other: Right stump well healed. Sutures and bart removed. Wounds: no wounds Hair: normal Neuro General: oriented to person, oriented to place and oriented to time Cranial nerves: Yes CN's II-XII intact bilaterally and Yes Normal hearing present Cognition (Neuro): normal cognition Motor exam (neuro): 5/5 motor strength present throughout Extrem Other: venous exam: No significant superficial varicosities or spider telangiectasias, minimal edema General: No clubbing, No cyanosis and No edema Psych Appearance: grossly normal Mental Status: mental status grossly normal Speech and movement: Normal speech and movement present Assessment & Plan Assessment & Plan (1) PAD (peripheral artery disease): Comment: 12/21/2023 right lower extremity diagnostic angiogram 01/26/2024 right BKA Code(s): I73.9 - Peripheral vascular disease, unspecified Category: Medical Plan: In short patient is doing extremely well status post right below-knee amputation. Incision is healing relatively well. Will bring him back in 2 weeks for stump check. Should that appear to be doing well will start the process for prosthetic. In terms of his prosthetic he has a very active gentleman. He will at least require a K3 prosthetic to continue his level of activity as he does climb stairs he has a michaud and will require mobility beyond simple locomotion. Thank you for allowing us to assist in his care. If there are any questions or concerns please do not hesitate to contact us. Coding Level of Care Code Est Pt Level 3 (70270) Diagnoses PAD (peripheral artery disease) I73.9
[2024-02-15 10:05] VITALS: BMI 21.9
== END 2024-02-15 10:18 | disposition home or self-care (01) ==
PROVIDERS: PCP Physician Assistant; Visit Provider Surgery Vascular Surgery
DX: I73.9 Peripheral vascular disease, unspecified (principal)
CPT/HCPCS: 99024

== ENCOUNTER → 2024-02-15 10:02 | Outpatient (BNVA) | payer MEDICARE, SELFPAY | PROVIDERS: PCP Physician Assistant; Visit Provider Surgery Vascular Surgery | DX: I73.9 Peripheral vascular disease, unspecified (principal) | CPT/HCPCS: 99212 ==

== ENCOUNTER 2024-02-28 13:09 | Outpatient (AMB) | payer MEDICARE, SELFPAY ==
--- NOTE | 2024-02-28 13:30 | MHC.OFFVIS ---
Intake Visit Reasons: 2w stub check Intake Note: Patient presents for 2 week follow up stump check. Patients bandages are changed every other day at home. Patient has a small amount of drainage on the right side of his stump. Otherwise, patient states he is doing well. Accompanied by: Spouse Allergies sitagliptin [From JANUVIA] Allergy (Unknown, Verified 02/28/24 13:31) vomitting dulaglutide [From Trulicity] Adverse Reaction (Intermediate, Verified 02/28/24 13:31) Rash pioglitazone [From Actos] Adverse Reaction (Intermediate, Verified 02/28/24 13:31) palpatations HPI HPI 2w stub check: Details: Very pleasant 73-year-old gentleman status post right BKA presents for follow-up. He reports he is doing extremely well. In general no issues. Healing fairly well. Now presents for follow-up. [facility] Medical History PAD (peripheral artery disease) Other and unspecified hyperlipidemia Essential hypertension Type 2 diabetes mellitus with unspecified complications Allergic rhinitis Stroke Nausea & vomiting Hospital discharge follow-up Atypical chest pain Diabetes Hyperlipidemia HTN (hypertension) Surgical History Hx of colonoscopy Family History Father No problems noted. Mother Myocardial infarction Sister Diabetes Hypertension Social History Household Members: Spouse Housing: House Do you presently have visiting nurse or other home services: No Alcohol intake: current Alcohol intake frequency: holidays/special occasions only Alcohol type: beer Patient Tobacco Use Status: Never used Tobacco e-Cigarette/Vaping Use: Never Used Second Hand Smoke Exposure: No Advance Directives Date on File: 12/22/23 service: No Current occupational status: retired Cognitive needs: No Hearing needs: No Vision needs: No Review of Systems Const All systems reviewed & are unremarkable except as noted in HPI and below Reports no additional complaints ENT Reports Normal hearing present Card Denies chest pain, Denies chest pain at rest, Denies chest pain with activity and Denies pedal edema Resp Denies cough GI Denies abdominal pain Musc Denies abnormal gait, Denies muscle cramps and Denies radiating pain into limb Skin/Breast Denies skin ulcer and Denies wounds Neuro Reports Normal hearing present and Denies abnormal gait Psych Reports no additional complaints Physical Exam Const General: cooperative, healthy appearing and comfortable Orientation/consciousness: oriented to person, oriented to place and oriented to time HEENT Head: Yes normal to inspection Neck Neck: Yes normal visual inspection Carotids: no bruits Chest Chest palpation & inspection: normal inspection of the chest Resp Effort & Inspection: normal respiratory effort and able to speak in complete sentences Auscultation: clear to auscultation bilaterally, no crackles, no rales, no rhonchi and no wheezes Cardio Rate: regular rate Rhythm: regular rhythm Heart sounds: S1 normal heart sound present and S2 normal heart sound present Bruits: no carotid bruits Peripheral pulses: Peripheral pulses 2+ throughout GI Inspection: Yes normal to inspection Skin Other: Right stump nonhealing area on incision line proximally 1 cm in diameter Wounds: no wounds Hair: normal Neuro General: oriented to person, oriented to place and oriented to time Cranial nerves: Yes CN's II-XII intact bilaterally and Yes Normal hearing present Cognition (Neuro): normal cognition Motor exam (neuro): 5/5 motor strength present throughout Extrem Other: venous exam: No significant superficial varicosities or spider telangiectasias, minimal edema General: No clubbing, No cyanosis and No edema Psych Appearance: grossly normal Mental Status: mental status grossly normal Speech and movement: Normal speech and movement present Assessment & Plan Assessment & Plan (1) PAD (peripheral artery disease): Comment: 12/21/2023 right lower extremity diagnostic angiogram 01/26/2024 right BKA Code(s): I73.9 - Peripheral vascular disease, unspecified Category: Medical Plan: In short patient has right stump is nearly healed. Continue with local dry protective dressings. Patient will follow up with us in approximately 3 weeks time to ensure it is completely healed and at that point we will start with a prosthetic process. Thank you for allowing us to assist in his care. Coding Level of Care Code Est Pt Level 3 (98266) Diagnoses PAD (peripheral artery disease) I73.9
== END 2024-02-28 13:45 | disposition home or self-care (01) ==
LOC: HO.HVS 13:09
PROVIDERS: PCP Physician Assistant; Visit Provider Surgery Vascular Surgery
DX: I73.9 Peripheral vascular disease, unspecified (principal)
CPT/HCPCS: 99024

== ENCOUNTER → 2024-02-28 13:09 | Outpatient (BNVA) | payer MEDICARE, SELFPAY | PROVIDERS: PCP Physician Assistant; Visit Provider Surgery Vascular Surgery | DX: Z47.81 Encounter for orthopedic aftercare following surgical amputation (principal); I73.9 Peripheral vascular disease, unspecified; Z89.511 Acquired absence of right leg below knee | CPT/HCPCS: 99212 ==

== ENCOUNTER 2024-03-25 17:57 | Emergency (ER) | payer MEDICARE, SELFPAY ==
--- NOTE | 2024-03-25 | ECG_ITS ---
Test Reason : DIZZINESS Blood Pressure : / mmHG Vent. Rate : 105 BPM Atrial Rate : 105 BPM P-R Int : 150 ms QRS Dur : 070 ms QT Int : 326 ms P-R-T Axes : 043 -29 039 degrees QTc Int : 430 ms Sinus tachycardia Otherwise normal ECG When compared with ECG of 19-AUG-2022 09:51, Premature ventricular complexes are no longer Present Referred By: Generic ED Physician Electronically Signed By:TAPAN DESHPANDE MD
--- NOTE | ~2024-03-25 | CT_ITS ---
EXAMINATION: CT ABDOMEN AND PELVIS WITH CONTRAST CLINICAL INFORMATION: Vomiting with abdominal distention COMPARISON: None available. TECHNIQUE: Multidetector volumetric images were obtained from the superior aspect of the liver through the pubic symphysis following administration 85 mL of Omnipaque 350 intravenous contrast. Sagittal and coronal reformatted images were obtained on the technologist's workstation. Oral contrast: No This CT examination was performed using dose optimization techniques as appropriate, variously including the following: *Automated exposure control *Adjustment of mA and/or kV according to patient size (this includes techniques or standardized protocols for targeted exams where dose is matched to indication/reason for exam; i.e. extremities or head) *Use of iterative reconstruction technique DLP: 767 mGy-cm FINDINGS: LUNG BASES: The visualized lung bases are unremarkable aside from bibasilar atelectasis. LIVER, GALLBLADDER, AND BILIARY TREE: The liver is enlarged measuring 19 cm in greatest length. Attenuation is slightly decreased suggesting steatosis. No focal hepatic lesion or biliary ductal dilatation is present. The gallbladder is unremarkable with no evidence of radiopaque gallstones, gallbladder wall thickening, or obvious pericholecystic inflammatory changes. PANCREAS: Unremarkable. SPLEEN: Unremarkable. ADRENAL GLANDS: Both adrenal glands are mildly thickened without masses. KIDNEYS AND URETERS: The kidneys are normal in size, shape, and attenuation. No hydronephrosis, hydroureter, or calculi seen. 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 Multiple benign benign Bosniak class I renal cysts are noted, left greater than right which require no additional imaging or follow-up. No solid renal masses are seen. BLADDER: The bladder wall is symmetrically thickened. GASTROINTESTINAL TRACT: The small and large bowel are unremarkable aside from extensive colonic diverticulosis without diverticulitis. The appendix is unremarkable. ABDOMINAL WALL: No significant hernia is appreciated. LYMPH NODES: Normal. VASCULAR: Calcific atherosclerotic changes are present in the aorta and iliofemoral vessels. There is no evidence of an abdominal aortic aneurysm. PELVIC VISCERA: Prostate is enlarged measuring about 72) CT. Seminal vesicles appear normal. OSSEOUS STRUCTURES: Unremarkable. CT/CT abdomen pelvis w IV con IMPRESSION: 1. A cause for the patient's vomiting and abdominal distention has not been found. 2. Incidental note made of an enlarged fatty liver, colonic diverticulosis without diverticulitis, BPH and other findings described above. Fleischner guidelines were followed.
--- NOTE | ~2024-03-25 | XR_ITS ---
EXAMINATION: XR CHEST CLINICAL INFORMATION: Cough COMPARISON: Chest x-ray on 01/16/2024 TECHNIQUE: Frontal view of the chest was obtained. FINDINGS: No significant abnormality is noted involving the heart, lungs, mediastinum, bony thorax or soft tissues. XR/XR chest 1V IMPRESSION: Unremarkable examination.
--- NOTE | ~2024-03-25 | US_ITS ---
EXAMINATION: US VENOUS ULTRASOUND WITH DOPPLER LOWER EXTREMITY, LEFT CLINICAL INFORMATION: Left lower extremity edema and pain COMPARISON: None available. TECHNIQUE: Ultrasound of the deep veins is performed from the hip to the calf with compression sonography and color and pulse Doppler assessment. Spectral analysis with color-flow imaging is performed. FINDINGS: There is normal venous compression and respiratory variation and augmented flow. The visualized common femoral vein, superficial femoral vein, profunda femoral vein, popliteal vein, and the trifurcation region shows no evidence of deep venous thrombosis. There is no significant popliteal fossa cyst. If the patient's symptoms persist, followup ultrasound in 5 days 7 days might be of value to exclude proximal propagation from a non-visualized calf vein. US/US venous duplex LE IMPRESSION: No DVT demonstrated in the left lower extremity.
--- NOTE | ~2024-03-25 | CT_ITS ---
EXAMINATION: CT HEAD WITHOUT CONTRAST CLINICAL INFORMATION: Weakness, headache. COMPARISON: None available. TECHNIQUE: Contiguous axial imaging was performed from the skull base to vertex without intravenous administration of contrast. This CT examination was performed using dose optimization techniques as appropriate, variously including the following: *Automated exposure control *Adjustment of mA and/or kV according to patient size (this includes techniques or standardized protocols for targeted exams where dose is matched to indication/reason for exam; i.e. extremities or head) *Use of iterative reconstruction technique DLP: 760 mGy-cm FINDINGS: No intracranial hemorrhage, tumors or acute infarcts identified. Mild diffuse commensurate prominence of ventricles and sulci. Moderate scattered subcortical and periventricular white matter patchy hypodensities. Dense segmental calcific atherosclerotic plaques of the cavernous portions of the internal carotid arteries. Normal appearance of the orbits and globes. No extracranial soft tissue inflammatory changes identified. No significant opacification of the visualized paranasal sinuses, mastoid air cells and middle ear cavities. CT/CT head/brain wo IV con IMPRESSION: 1. No acute intracranial abnormalities. 2. Moderate white matter chronic small vessel ischemic changes.
[2024-03-25 18:05] VITALS: BP 118/78; BP 120/78; PULSE 110; PULSE 112; RESP 18; TEMP 36.7; O2SAT 95; BMI 23.7
[2024-03-25 18:36] LABS: MANUAL DIFF FLAG NO
[2024-03-25 18:38] LABS: Basophils Percent Auto 0.2 % (0-2); Hematocrit 38.1 % (42.0-52.0); Hemoglobin 12.8 g/dl (14.0-18.0); Imm Gran Abs Auto 0.02 X10*3/uL (0.00-0.03); Imm Gran Pct Auto 0.4 % (0.0-0.4); Lymphocytes Absolute Auto 0.4 X10*3/uL (1.2-4.9); Lymphocytes Percent Auto 8.1 % (20-40); Mean Corpuscular HGB Conc 33.6 g/dl (31.0-36.0); Mean Corpuscular Hemoglobin 29.2 pg (27.0-33.0); Mean Corpuscular Volume 86.8 fL (80.0-98.0); Mean Platelet Volume 9.5 fL (9.4-12.4); Monocytes Absolute Auto 0.2 X10*3/uL (0.1-1.2); Monocytes Percent Auto 5.2 % (2-11); Neutrophils Absolute Auto 3.8 x10*3/uL (2.0-8.3); Neutrophils Percent Auto 86.1 % (45-73); Platelet Count 176 X10*3/uL (160-400); Red Blood Count 4.39 X10*6/uL (4.60-5.80); Red Cell Distribution Width 13.6 % (11.0-16.0); White Blood Count 4.5 X10*3/uL (4.8-10.8)
[2024-03-25 18:45] LABS: Prothrombin Time 12.6 SEC (11.1-13.3)
[2024-03-25 18:55] LABS: Lipase 57 U/L (8-78)
[2024-03-25 19:05] LABS: Troponin-I High Sensitivity 8.8 ng/L (<3.5-35.0)
[2024-03-25 19:14] LABS: Influenza A PCR NEGATIVE (Negative); Influenza B PCR NEGATIVE (Negative); Resp Syncy Virus RNA Qual PCR NEGATIVE (Negative); SARS COV2 PCR INHOUSE NEGATIVE (Negative)
--- NOTE | 2024-03-25 19:31 | ED.GENADULT ---
HPI - General Adult General Chief complaint: Nausea/Vomiting/Diarrhea Stated complaint: Weak, N/V, unable to keep foods/liquids down, dizz Time Seen by Provider: 03/25/24 18:29 Source: patient, family (), RN notes reviewed and old records reviewed Mode of arrival: EMS Limitations: no limitations History of Present Illness ED Provider: Keeley HPI narrative: 74-year-old male with past medical history significant for diabetes, peripheral or disease status post right BKA, aortic valve stenosis, hypertension who presents for evaluation of weakness. Patient reports significant increase in weakness since early this morning. He reports he woke up between 2 and 3:00 a.m. this morning and was unable to get himself up to use the urinal He has had some intermittent coughing and intermittent headaches. He reports having had a fever earlier but not currently At the moment he denies any pain whatsoever including headache, chest pain, abdominal pain. He has had several episodes of nonbloody vomitus He reports left leg swelling for the last week No other complaints or concerns at this time Related Data Home Medications ?Medication ?Instructions ?Recorded ?Confirmed simvastatin 40 mg tablet 40 mg PO BEDTIME 12/19/23 01/16/24 acetaminophen 500 mg tablet 500 mg PO Q6H PRN Pain 01/16/24 01/16/24 (Tylenol Extra Strength) semaglutide 0.25 mg or 0.5 mg (2 0.5 mg subcut QWEEK 01/26/24 01/26/24 mg/3 mL) subcutaneous pen injector (Ozempic) Previous Rx's ?Medication ?Instructions ?Recorded blood-glucose meter (FreeStyle #1 ea 01/03/23 Lite Meter kit) blood-glucose sensor ([employer] G7 #3 ea 04/26/23 Sensor device) walker #1 ea 09/09/23 walker #1 ea 09/09/23 lisinopril 10 mg tablet 10 mg PO DAILY 90 days #90 tabs 12/28/23 oxycodone 10 mg tablet 10 mg PO Q8H PRN pain #12 tabs 01/23/24 chair, wheel (Wheel chair) #1 ea 01/25/24 amlodipine 10 mg tablet 10 mg PO DAILY #90 tabs 02/27/24 aspirin 81 mg tablet,delayed 81 mg PO DAILY 90 days #90 tabs 02/27/24 release blood sugar diagnostic (FreeStyle #100 ea 02/27/24 Lite Strips) metformin 1,000 mg tablet 1,000 mg PO BID 90 days #180 tabs 02/27/24 ondansetron 4 mg disintegrating 4 mg PO Q8H PRN nausea and 03/26/24 tablet vomiting #20 tabs Allergies Allergy/AdvReac Type Severity Reaction Status Date / Time sitagliptin [From SEPUV] Allergy Unknown vomitting Verified 03/25/24 18:10 dulaglutide [From Trulicity] AdvReac Intermediate Rash Verified 03/25/24 18:10 pioglitazone [From Actos] AdvReac Intermediate palpatation Verified 03/25/24 18:10 s Review of Systems Constitutional: Constitutional: Denies body ache(s), Reports chills, Reports fever(s), Denies frequent falls and Reports headache(s) Eyes: Eyes: Denies blurry vision ENT: Reports headache(s) and Denies sore throat Cardiovascular: Cardiovascular: Denies chest pain and Denies dyspnea Respiratory: Respiratory: Reports cough and Denies dyspnea Gastrointestinal: Gastrointestinal: Denies abdominal pain, Reports nausea and Reports vomiting Musculoskeletal: Musculoskeletal: Denies back pain Integumentary/Breasts: Skin/Breast: Denies rash Neurologic: Denies frequent falls and Reports headache(s) Psychiatric: Psychiatric: Denies anxiety PMFSH Past Medical History Medical History PAD (peripheral artery disease) Other and unspecified hyperlipidemia Essential hypertension Type 2 diabetes mellitus with unspecified complications Allergic rhinitis Stroke Nausea & vomiting Hospital discharge follow-up Atypical chest pain Diabetes Hyperlipidemia HTN (hypertension) Surgical History Hx of colonoscopy Family History Family History Father No problems noted. Mother Myocardial infarction Sister Diabetes Hypertension Social History Social History Household Members: Spouse Housing: House Do you presently have visiting nurse or other home services: No Alcohol intake: current Alcohol intake frequency: holidays/special occasions only Alcohol type: beer Patient Tobacco Use Status: Never used Tobacco Smoked in Last 30 Days: No e-Cigarette/Vaping Use: Never Used Second Hand Smoke Exposure: No Use of substances other than those prescribed or required for medical reasons: No Advance Directives: Yes Advance Directives on File: Yes Advance Directives Date on File: 12/22/23 Do you have a plan to hurt others: No Plan service: No Current occupational status: retired Cognitive needs: No Hearing needs: No Vision needs: No Physical Exam ED Vital Signs: Vital Signs - 24 hr 03/25/24 18:05 03/25/24 19:34 03/25/24 22:28 Temperature 98.0 F 99.9 F 99.7 F Pulse Rate 110 H 100 100 Respiratory Rate 18 24 H 15 Blood Pressure 120/78 135/76 108/69 Pulse Oximetry 95 94 95 Oxygen Delivery Method Room Air Room Air Room Air BMI result Body Mass Index 23.7 Const General: healthy appearing, comfortable, no acute distress, alert and awake Nutritional Appearance: well nourished Orientation/consciousness: patient oriented x3 HENMT Head: Yes normocephalic and Yes atraumatic Eyes Eyelids: Yes eyelids normal Conjunctivae: conjunctivae normal Sclerae: sclerae normal Corneas: corneas normal Pupils: Equal, round and reactive pupils present EOM: EOMs intact bilaterally Neck Neck: Yes full ROM Resp Effort & Inspection: normal respiratory effort, able to speak in complete sentences, no audible wheezes and not labored Auscultation: clear to auscultation bilaterally Cardio Rate: regular rate Rhythm: regular rhythm GI Other: Abdomen is entirely nontender to palpation without any guarding or rebound Inspection: Yes distended (Abdomen seems somewhat distended) Palpation (GI): Soft to palpation, not firm, nontender, no guarding and not rigid Skin Other: There is a small, dime sized area skin breakdown to the right stump. No drainage or surrounding erythema General skin exam: elasticity normal Neuro General: patient oriented x3 Cranial nerves: Yes Equal, round and reactive pupils present and Yes Bilaterally intact EOM present Cognition (Neuro): normal cognition Extrem Other: Right BKA Course Reevaluation(s) Reevaluation #1: Patient reports feeling better, his vital signs have remained stable. He is able to sit up without any difficulty which he was apparently having trouble doing earlier this morning. He states that he feels back to his baseline. His CT brain, abdomen and pelvis, chest x-ray, urinalysis did not show any concerning abnormalities or acute findings. Discussed possible physical therapy evaluation and rehab for the patient which she declines at this time. He and his feel that he will be safe going back home. He also has a doctor's appointment tomorrow for his right leg stump. Time: 00:14 Medications Administered Discontinued Medications Generic Name Dose Route Start Last Admin Trade Name Ra PRN Reason Stop Dose Admin Sodium Chloride 1,000 mls @ 999 mls/hr 03/25/24 19:15 03/25/24 22:29 Ns IV 03/25/24 20:15 Infused .Q1H1M ROSENDO Infusion Sodium Chloride 1,000 mls @ 999 mls/hr 03/25/24 22:45 03/25/24 23:46 Ns IV 03/25/24 23:45 Infused .Q1H1M ROSENDO Infusion Iohexol 85 ml 03/25/24 20:05 03/25/24 20:05 Iohexol 350 Mg/Ml 100 Ml Infus..Btl IV 03/25/24 20:06 85 ml ONCE ONE Administration Medical Decision Making Medical Decision Making [facility] Narrative: 74-year-old male with multiple comorbidities presents for evaluation of vague complaints of cough and general weakness. Plan for chest x-ray, viral swabs, CT scan of his head and abdomen. CT scan his head given the general weakness and headaches. CT scan of the abdomen pelvis is due to nausea vomiting and abdominal distention despite being nontender. We will get an EKG to evaluate for arrhythmia versus ischemic concerns. Labs pending at this time. Vitals are currently stable. Also plan for ultrasound of the left lower extremity given the swelling to evaluate for DVT Differential Diagnosis Differential Diagnoses: The differential diagnosis associated with the presentation includes Pneumonia Bronchitis COVID-19 CVA Intracranial hemorrhage UTI Cystitis DVT Lab Data [facility] Lab Attestation statement: I reviewed the patient's lab results. Patient has mild leukopenia and mild anemia. However, the anemia is improved compared to baseline which may be related to hemoconcentration and mild dehydration related to his recent vomiting and poor oral intake. He does have a left shift which may be related to vomiting. The patient does have a sodium of 130 with an elevated glucose of 260. This is still a very mild hyponatremia once corrected for the glucose. We will treat with IV fluids 03/25/24 18:28 03/25/24 18:28 Labs: Lab Results 03/25/24 03/25/24 03/25/24 Range/Units 18:28 20:23 22:33 WBC 4.5 L (4.8-10.8) X10*3/uL RBC 4.39 L D (4.60-5.80) X10*6/uL Hgb 12.8 L D (14.0-18.0) g/dl Hct 38.1 L D (42.0-52.0) % MCV 86.8 (80.0-98.0) fL MCH 29.2 (27.0-33.0) pg MCHC 33.6 (31.0-36.0) g/dl RDW 13.6 (11.0-16.0) % Plt Count 176 D (160-400) X10*3/uL MPV 9.5 (9.4-12.4) fL Immature Gran % (Auto) 0.4 (0.0-0.4) % Neut % (Auto) 86.1 H (45-73) % Lymph % (Auto) 8.1 L (20-40) % [place] % (Auto) 5.2 (2-11) % Eos % (Auto) 0.0 (0-4) % Baso % (Auto) 0.2 (0-2) % Lymph # (Auto) 0.4 L (1.2-4.9) X10*3/uL [place] # (Auto) 0.2 (0.1-1.2) X10*3/uL Eos # (Auto) 0.0 (0.0-0.4) X10*3/uL Baso # (Auto) 0.0 (0.0-0.2) X10*3/uL Abs Immat Gran (auto) 0.02 (0.00-0.03) X10*3/uL Absolute Neuts (auto) 3.8 (2.0-8.3) x10*3/uL Absolute Nucleated RBC 0.000 (0.0-0.012) X10*3/uL Nucleated RBC % (auto) 0.0 (0.0-0.2) /100WBC PT 12.6 (11.1-13.3) SEC INR 1.0 (0.9-1.1) Sodium 130 L (135-145) mmol/L Potassium 4.1 (3.3-5.1) mmol/L Chloride 95 L (96-108) mmol/L Carbon Dioxide 24 (22-29) mmol/L Anion Gap 15 (12-20) BUN 10 (9-16) mg/dL Creatinine 0.73 (0.5-1.4) mg/dL Estim Creat Clear Calc 91.6 Estimated GFR > 60 Random Glucose 260 H (60-115) mg/dL Lactic Acid 2.0 (0.5-2.0) mmol/L Calcium 9.8 D (8.4-10.2) mg/dL Total Bilirubin 0.5 (0.0-1.0) mg/dL AST 23 (5-37) U/L ALT 25 (0-40) U/L Alkaline Phosphatase 77 (39-117) U/L Troponin I High Sens 8.8 (<3.5-35.0) ng/L Total Protein 8.2 H (6.5-8.0) g/dL Albumin 4.4 (3.5-5.0) g/dL Lipase 57 (8-78) U/L Urine Color Yellow Urine Appearance Clear Urine pH 6.5 (5.0-9.0) Ur Specific [place] >= 1.030 H (1.005-1.025) Urine Protein Negative (Neg-Trace) mg/dL Urine Glucose (UA) 100 H (Negative) mg/dL Urine Ketones Negative (Negative) mg/dL Urine Blood Negative (Negative) Urine Nitrite Negative (Negative) Ur Leukocyte Esterase Negative (Negative) Urine RBC 0-2 (0-2) /HPF Urine WBC 0-5 (0-5) /HPF Ur Squamous Epith Cells 0-2 (0-2) /HPF Urine Bacteria None Seen (None Seen) Hyaline Casts 0-2 (0-2) /LPF Influenza Type A (PCR) NEGATIVE (Negative) Influenza Type B (PCR) NEGATIVE (Negative) RSV RNA Qual (PCR) NEGATIVE (Negative) SARS-CoV-2 RNA (RT-PCR) NEGATIVE (Negative) Discharge Plan Discharge Clinical Impression: Weakness, Nausea & vomiting Patient Disposition: Home, Self-Care Instructions: Weakness (ED) Additional Instructions: Your workup in the ER today was reassuring. This includes your CT scan of the brain, abdomen pelvis, chest x-ray, urinalysis. Your blood work indicated that you are likely slightly dehydrated which may have been related to the vomiting. Drink lots of fluids, small sips at a time. Use Zofran as needed for nausea and vomiting Follow-up with your primary doctor, return for new or worsening symptoms Prescriptions: New ondansetron 4 mg tablet,disintegrating 4 mg PO Q8H PRN (Reason: nausea and vomiting) Qty: 20 0RF No Action (DME) blood-glucose meter [FreeStyle Lite Meter] Kit See Rx Instructions .Route Qty: 1 0RF Rx Instructions: As directed tests 4 X/day (DME) walker Misc See Rx Instructions .MEDSUPPLY Qty: 1 0RF Rx Instructions: Folding Front wheeled walker (DME) walker Misc See Rx Instructions .MEDSUPPLY Qty: 1 0RF Rx Instructions: Folding Front wheeled walker lisinopril 10 mg tablet 10 mg PO DAILY 90 Days Qty: 90 1RF amlodipine 10 mg tablet 10 mg PO DAILY Qty: 90 1RF aspirin 81 mg tablet,delayed release (DR/EC) 81 mg PO DAILY 90 Days Qty: 90 4RF (DME) FreeStyle Lite Strips Strip See Rx Instructions .Route Qty: 100 4RF Rx Instructions: As directed tests 4 X/day metformin 1,000 mg tablet 1,000 mg PO BID 90 Days Qty: 180 1RF Hold Instructions: Resume on 12/23/23. simvastatin 40 mg tablet 40 mg PO BEDTIME acetaminophen [Tylenol Extra Strength] 500 mg Tablet 500 mg PO Q6H PRN (Reason: Pain) oxycodone 10 mg tablet 10 mg PO Q8H PRN (Reason: pain) Qty: 12 0RF Rx Instructions: Partial Fill upon patient request. (DME) Wheel chair Kit See Rx Instructions .Route Qty: 1 0RF Rx Instructions: As directed Ozempic 0.25 mg or 0.5 mg (2 mg/3 mL) pen injector 0.5 mg subcut QWEEK (DME) Dexcom G7 Sensor Device See Rx Instructions .Route Qty: 3 4RF Rx Instructions: As directed change every 10 days Print Language: Tamazight
[2024-03-25 19:34] VITALS: BP 135/76; PULSE 100; RESP 24; TEMP 37.7; O2SAT 94
[2024-03-25 19:35] LABS: Alanine Aminotransferase 25 U/L (0-40); Albumin Level 4.4 g/dL (3.5-5.0); Anion Gap 15 (12-20); Aspartate Amino Transferase 23 U/L (5-37); Calcium 9.8 mg/dL (8.4-10.2); Carbon Dioxide 24 mmol/L (22-29); Chloride 95 mmol/L (96-108); Glucose Random 260 mg/dL (60-115); Potassium 4.1 mmol/L (3.3-5.1); Sodium 130 mmol/L (135-145); Total Protein 8.2 g/dL (6.5-8.0)
[2024-03-25 19:41] LABS: Alkaline Phosphatase 77 U/L (39-117); Bilirubin Total 0.5 mg/dL (0.0-1.0); Blood Urea Nitrogen 10 mg/dL (9-16); Creatinine Clr Calc Pharmacy 91.6; Estimated Glomerular Filt Rate > 60
[2024-03-25] MEDS: 0.9 % Sodium Chloride 1,000 ML 999 ML IV ×2 (20:04→22:45)
[2024-03-25] MEDS: iohexoL 350 MG/ML 100 ML INFUS..BTL 85 ML IV (20:05)
[2024-03-25 22:28] VITALS: BP 108/69; PULSE 100; RESP 15; TEMP 37.6; O2SAT 95
[2024-03-25 22:39] LABS: Appearance Urine Clear; Color Urine Yellow; Glucose Urine UA 100 mg/dL (Negative); Leukocyte Esterase Urine Negative (Negative); Nitrite Urine Negative (Negative); PH 6.5 (5.0-9.0); Specific Gravity - Urine >= 1.030 (1.005-1.025); Urine Blood Negative (Negative); Urine Ketones Negative (Negative); Urine Protein Negative (Neg-Trace)
[2024-03-25 22:44] LABS: Bacteria Urine None Seen (None Seen); Hyaline Casts Urine 0-2 /LPF (0-2); RBC Urine 0-2 /HPF (0-2); Squamous Epithelial Cell Urine 0-2 /HPF (0-2); WBC Urine 0-5 /HPF (0-5)
[2024-03-26 00:33] VITALS: BP 108/69; PULSE 100; RESP 15; TEMP 37.6; O2SAT 95
== END 2024-03-26 00:34 | disposition home or self-care (01) ==
PROVIDERS: Physician Assistant; Emergency Provider Internal Medicine
DX: R11.2 Nausea with vomiting, unspecified (principal); R42 Dizziness and giddiness; R05.9 Cough, unspecified; R53.1 Weakness; R00.0 Tachycardia, unspecified; R51.9 Headache, unspecified; R60.0 Localized edema; Z03.818 Encounter for observation for suspected exposure to other biological agents ruled out; Z79.899 Other long term (current) drug therapy
CPT/HCPCS: 0241U; 36415; 70450; 71045; 74177; 80053; 81001; 83605; 83690; 84484; 85025; 85610; 87040; 93005; 93971; 96360; 96361; 99285; Q9967

== ENCOUNTER → 2024-03-25 18:00 | Outpatient (BNV) | payer MEDICARE, SELFPAY | PROVIDERS: Emergency Provider Internal Medicine; Visit Provider Internal Medicine Cardiovascular Disease | DX: R42 Dizziness and giddiness (principal); R00.0 Tachycardia, unspecified | CPT/HCPCS: 93010 ==

== ENCOUNTER 2024-03-26 12:34 | Outpatient (AMB) | payer MEDICARE, SELFPAY ==
[2024-03-26 12:51] VITALS: BMI 23.6
--- NOTE | 2024-03-26 12:51 | MHC.OFFVIS ---
Vital Signs 03/26/24 12:51 Height 5 ft 11 in Weight 169 lb BMI 23.6 Intake Visit Reasons: Follow up 3 wk Right Stump check Intake Note: 3 week follow up Right BKA 01/26/24, incision line is scabbed over. Has outer corner of incision slightly leaking, changes bandage daily, has PT Accompanied by: Family/Other Allergies sitagliptin [From JANUVIA] Allergy (Unknown, Verified 03/26/24 13:00) vomitting dulaglutide [From Trulicity] Adverse Reaction (Intermediate, Verified 03/26/24 13:00) Rash pioglitazone [From Actos] Adverse Reaction (Intermediate, Verified 03/26/24 13:00) palpatations HPI HPI Follow up 3 wk Right Stump check: Details: Very pleasant 74-year-old gentleman presents for follow-up regarding right BKA. Reports it is doing overall fairly well. He has some small dry eschars but overall the incision line appears to be healing well. He now presents for routine follow-up. FOR[facility]LY [facility], [facility] Medical History PAD (peripheral artery disease) Other and unspecified hyperlipidemia Essential hypertension Type 2 diabetes mellitus with unspecified complications Allergic rhinitis Stroke Nausea & vomiting Hospital discharge follow-up Atypical chest pain Diabetes Hyperlipidemia HTN (hypertension) Surgical History Hx of colonoscopy Family History Father No problems noted. Mother Myocardial infarction Sister Diabetes Hypertension Social History Household Members: Spouse Housing: House Do you presently have visiting nurse or other home services: No Alcohol intake: current Alcohol intake frequency: holidays/special occasions only Alcohol type: beer Patient Tobacco Use Status: Never used Tobacco e-Cigarette/Vaping Use: Never Used Second Hand Smoke Exposure: No Advance Directives Date on File: 12/22/23 service: No Current occupational status: retired Cognitive needs: No Hearing needs: No Vision needs: No Review of Systems Const All systems reviewed & are unremarkable except as noted in HPI and below Reports no additional complaints ENT Reports Normal hearing present Card Denies chest pain, Denies chest pain at rest, Denies chest pain with activity and Denies pedal edema Resp Denies cough GI Denies abdominal pain Musc Denies abnormal gait, Denies muscle cramps and Denies radiating pain into limb Skin/Breast Denies skin ulcer and Denies wounds Neuro Reports Normal hearing present and Denies abnormal gait Psych Reports no additional complaints Physical Exam Vital Signs: BMI result Body Mass Index 23.6 Const General: cooperative, healthy appearing and comfortable Orientation/consciousness: oriented to person, oriented to place and oriented to time HEENT Head: Yes normal to inspection Neck Neck: Yes normal visual inspection Carotids: no bruits Chest Chest palpation & inspection: normal inspection of the chest Resp Effort & Inspection: normal respiratory effort and able to speak in complete sentences Auscultation: clear to auscultation bilaterally, no crackles, no rales, no rhonchi and no wheezes Cardio Rate: regular rate Rhythm: regular rhythm Heart sounds: S1 normal heart sound present and S2 normal heart sound present Bruits: no carotid bruits Peripheral pulses: Peripheral pulses 2+ throughout GI Inspection: Yes normal to inspection Skin Other: Right BKA stump appears to be healing well incision line well healed. Wounds: amputation site Hair: normal Neuro General: oriented to person, oriented to place and oriented to time Cranial nerves: Yes CN's II-XII intact bilaterally and Yes Normal hearing present Cognition (Neuro): normal cognition Motor exam (neuro): 5/5 motor strength present throughout Extrem Other: venous exam: No significant superficial varicosities or spider telangiectasias, minimal edema General: No clubbing, No cyanosis and No edema Psych Appearance: grossly normal Mental Status: mental status grossly normal Speech and movement: Normal speech and movement present Assessment & Plan Assessment & Plan (1) PAD (peripheral artery disease): Comment: 12/21/2023 right lower extremity diagnostic angiogram 01/26/2024 right BKA Code(s): I73.9 - Peripheral vascular disease, unspecified Category: Medical Plan: In short patient is doing well status post right BKA. I do think he is stable for prosthetic referral. He will follow up with us in approximately 3 months time for left leg arterial surveillance. Thank you for allowing us to assist in his care. If there are any questions or concerns please do not hesitate to contact us. Orders: Orders US arterial duplex LE LT 3 Months I73.9 - Peripheral vascular disease, unspecified Coding Level of Care Code Est Pt Level 4 (70066) Diagnoses PAD (peripheral artery disease) I73.9
== END 2024-03-26 13:30 | disposition home or self-care (01) ==
PROVIDERS: PCP Physician Assistant; Visit Provider Surgery Vascular Surgery
DX: I73.9 Peripheral vascular disease, unspecified (principal)
CPT/HCPCS: 99024

== ENCOUNTER → 2024-03-26 12:34 | Outpatient (BNVA) | payer MEDICARE, SELFPAY | PROVIDERS: PCP Physician Assistant; Visit Provider Surgery Vascular Surgery | DX: I73.9 Peripheral vascular disease, unspecified (principal); Z89.511 Acquired absence of right leg below knee | CPT/HCPCS: 99212 ==

== ENCOUNTER 2024-04-03 08:36 | Outpatient (AMB) | payer MEDICARE, SELFPAY ==
--- NOTE | 2024-04-03 09:21 | MHC.AMNUTRGE ---
Intake Visit Reasons: T2DM/LVM Allergies sitagliptin [From JANUVIA] Allergy (Unknown, Verified 04/06/24 14:06) vomitting dulaglutide [From Trulicity] Adverse Reaction (Intermediate, Verified 04/06/24 14:06) Rash pioglitazone [From Actos] Adverse Reaction (Intermediate, Verified 04/06/24 14:06) palpatations Nutrition Presentation Details: Pt presents for Nutrition f/u for T2DM Pt presents with during this appt. Pt in wheelchair related to right bka on 01/2024 Pt reports doing well, monitoring blood glucose with gluc sensor and is helping him make dietary modifications Per sensor reports 14 d bg average at 195 mg/dl, no hypoglycemia (46% within target, 40 % above 180 and 14% above 240 mg/dl) Pt appears to have have elevated post pandrial blood glucose, Pt reports this are related to snacks , reports snacking on chips , sometimes candies Today will continue to reinforce low sodium food concepts and fiber rich foods BS Monitoring Most Recent Diabetes Results: Creatinine 0.73 mg/dL (0.5-1.4) 03/25/24 Blood Urea Nitrogen 10 mg/dL (9-16) 03/25/24 Sodium 130 mmol/L (135-145) L 03/25/24 Potassium 4.1 mmol/L (3.3-5.1) 03/25/24 Chloride 95 mmol/L (96-108) L 03/25/24 Carbon Dioxide 24 mmol/L (22-29) 03/25/24 Calcium 9.8 mg/dL (8.4-10.2) 03/25/24 AST 23 U/L (5-37) 03/25/24 ALT 25 U/L (0-40) 03/25/24 Total Protein 8.2 g/dL (6.5-8.0) H 03/25/24 Albumin 4.4 g/dL (3.5-5.0) 03/25/24 COUNTS INCLUDE 234 BEDS AT [facility] Medical History (Updated 03/27/24 @ 00:02 by Rolando Moscoso) PAD (peripheral artery disease) Other and unspecified hyperlipidemia Essential hypertension Type 2 diabetes mellitus with unspecified complications Allergic rhinitis Stroke Nausea & vomiting Hospital discharge follow-up Atypical chest pain Diabetes Hyperlipidemia HTN (hypertension) Surgical History (Updated 04/06/24 @ 14:15 by ELADIA Brown) History of amputation below knee History of amputation of toe History of amputation of great toe Hx of colonoscopy Family History Father No problems noted. Mother Myocardial infarction Sister Diabetes Hypertension Social History Household Members: Spouse Housing: House Do you presently have visiting nurse or other home services: No Alcohol intake: current Alcohol intake frequency: holidays/special occasions only Alcohol type: beer Patient Tobacco Use Status: Never used Tobacco e-Cigarette/Vaping Use: Never Used Second Hand Smoke Exposure: No Advance Directives Date on File: 12/22/23 service: No Current occupational status: retired Cognitive needs: Yes (Wheel Chair) Hearing needs: No Vision needs: No Assessment & Plan Assessment & Plan (1) Type 2 diabetes mellitus with unspecified complications: Code(s): E11.8 - Type 2 diabetes mellitus with unspecified complications Category: Medical Plan: Healthy plate method , low sodium concepts Used wt : 83 kg Est kcal as per 25/kg BW: 2067 (40% carb, 30% fat/prot) Est fluid needs: 2100 ml/d (25 ml/kg bw) Rec fiber: increase to 8-10 g per day and gradually increase to 35 g or as tolerated Rec Na: < 2000 mg /d Educate patient on: (R= Reviewed, V = verbalizes understanding N/R= Needs review N/A= not applicable) Food sources of carbohydrates and serving adequate serving sizes : R , v Difference between complex carbohydrates and simple carbohydrates, role of fiber: R , v Differences between fats (MUFA/PUFA/saturated fats, trans fats) and food sources of various fats: R Food sources of sodium and salt and healthy modifications for heart health and kidney health: R Vitamins and minerals: R How to interpret food labels: R Healthy Plate method concept: R V Physical activity: benefits and precaution: R, V hypoglycemia, sign , symptoms and rule of 15 to treat it: R Patient Instructions: Keep hydrated by having water with meals and snacks, choose fruit infused water instead of diet sodas which has salt added Choose a fruit with peanut butter in place of chips or pastries in the evening as snack - see list of low sodium /high fiber options Coding Level of Care Code Nutr Indiv Subseq (28793) Diagnoses Type 2 diabetes mellitus with unspecified complications E11.8 Time Spent (min) 20
== END 2024-04-03 09:27 | disposition home or self-care (01) ==
PROVIDERS: PCP Physician Assistant; Visit Provider Dietitian, Registered
DX: E11.8 Type 2 diabetes mellitus with unspecified complications (principal)

== ENCOUNTER → 2024-04-03 08:36 | Outpatient (BNVA) | payer MEDICARE, SELFPAY | PROVIDERS: PCP Physician Assistant; Visit Provider Dietitian, Registered | DX: E11.8 Type 2 diabetes mellitus with unspecified complications (principal); Z71.3 Dietary counseling and surveillance | CPT/HCPCS: 97803 ==

== ENCOUNTER 2024-04-06 14:01 | Outpatient (AMB) | payer MEDICARE, SELFPAY ==
--- NOTE | 2024-04-06 14:05 | MHC.PC.OV ---
Vital Signs 04/06/24 14:07 Height 5 ft 11 in Weight 179 lb BMI 25.0 BP 90/60 Blood Pressure Location Lt brachial Position Sitting Pulse 92 Pulse Source Pulse Oximeter Pulse Oximetry (%) 97 Oxygen Delivery Method Room Air Intake Visit Reasons: HDF 03/26 Dehydration, Weakness Intake Note: Patient is here for hospital discharge follow up. [place] [facility] [place] 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 He was [place] [facility] [place] for Nausea, vomiting and Diarrhea. He was discharged home the same day with Zofran. Pt today reports no symptoms. He is feeling good. [facility] Medical History (Updated 03/27/24 @ 00:02 by Rolando Moscoso) PAD (peripheral artery disease) Other and unspecified hyperlipidemia Essential hypertension Type 2 diabetes mellitus with unspecified complications Allergic rhinitis Stroke Nausea & vomiting Hospital discharge follow-up Atypical chest pain Diabetes Hyperlipidemia HTN (hypertension) Surgical History (Updated 04/06/24 @ 14:15 by ELADIA Brown) History of amputation below knee History of amputation of toe History of amputation of great toe Hx of colonoscopy Family History Father No problems noted. Mother Myocardial infarction Sister Diabetes Hypertension Social History Household Members: Spouse Housing: House Do you presently have visiting nurse or other home services: No Alcohol intake: current Alcohol intake frequency: holidays/special occasions only Alcohol type: beer Patient Tobacco Use Status: Never used Tobacco e-Cigarette/Vaping Use: Never Used Second Hand Smoke Exposure: No Advance Directives Date on File: 12/22/23 service: No Current occupational status: retired Cognitive needs: Yes (Wheel Chair) Hearing needs: No Vision needs: No Questionnaire Thrive Questionnaire Date Thrive assessed: 01/17/24 VICTOR HUGO-7 AMB Questionnaire VICTOR HUGO-7 Date VICTOR HUGO - 7 assessed: 09/14/23 Source: Developed by Drs. Peter Galdamez, Gala Esquivel, Warren Wayne and colleagues, with an educational xuan from [employer]. Review of Systems Const All systems reviewed & are unremarkable except as noted in HPI and below Physical exam (Primary Care) Vital Signs: Last Vital Signs Pulse 92 04/06/24 14:07 BP 90/60 04/06/24 14:07 Pulse Ox 97 04/06/24 14:07 Oxygen Delivery Method Room Air 04/06/24 14:07 BMI result Body Mass Index 25.0 Tobacco/Smoking Status: Tobacco use Status Tobacco use date assessed 04/06/24 04/06/24 14:12 Patient Tobacco Use Status Never used Tobacco 04/06/24 14:12 e-Cigarette/Vaping Use Never Used 04/06/24 14:12 Thrive Assessment: Date of Thrive Assessment Date Thrive assessed 01/17/24 04/06/24 14:12 Const General: comfortable and no acute distress Nutritional Appearance: underweight Orientation/consciousness: patient oriented x3 Limitations: wheelchair Resp Effort & Inspection: normal respiratory effort Cardio Heart sounds: S1 normal heart sound present and S2 normal heart sound present Neuro General: patient oriented x3 Psych Speech and movement: Normal speech and movement present Vital Signs: Last Vital Signs Pulse 92 04/06/24 14:07 BP 90/60 04/06/24 14:07 Pulse Ox 97 04/06/24 14:07 Oxygen Delivery Method Room Air 04/06/24 14:07 BMI result Body Mass Index 25.0 Const General: comfortable and no acute distress Nutritional Appearance: underweight Orientation/consciousness: patient oriented x3 Limitations: wheelchair Resp Effort & Inspection: normal respiratory effort Cardio Heart sounds: S1 normal heart sound present and S2 normal heart sound present Neuro Other: Wheelchair bound. General: patient oriented x3 Psych Speech and movement: Normal speech and movement present Assessment and Plan Assessment & Plan (1) Nausea vomiting and diarrhea: Code(s): R11.2 - Nausea with vomiting, unspecified; R19.7 - Diarrhea, unspecified Plan: Symptoms resolved No further concerns. Coding Level of Care Code Est Pt Level 4 (89400) Diagnoses Nausea vomiting and diarrhea R11.2; R19.7 Comment Spent 20 minutes reviewing Hospital notes
[2024-04-06 14:07] VITALS: BP 90/60; PULSE 92; O2SAT 97; BMI 25.0
== END 2024-04-06 14:27 | disposition home or self-care (01) ==
PROVIDERS: PCP Physician Assistant; Visit Provider Nurse Practitioner Family
DX: R11.2 Nausea with vomiting, unspecified (principal); R19.7 Diarrhea, unspecified
CPT/HCPCS: 99214

== ENCOUNTER 2024-04-18 10:35 | Outpatient (AMB) | payer MEDICARE, SELFPAY ==
[2024-04-18 10:53] VITALS: BP 120/72; PULSE 86
--- NOTE | 2024-04-18 10:53 | A.OFFVIS_ITS ---
Vital Signs 04/18/24 10:53 Height 5 ft 11 in BMI Reason not done Patient refused/unable BP 120/72 Blood Pressure Location Lt brachial Position Sitting Pulse 86 Pulse Source Pulse Oximeter Intake Visit Reasons: T2DM/CONFIRMED Intake Note: New Patient presents today to establish treatment for Type 2 Diabetes Mellitus: Last Diabetic Eye exam: OVER DUE Last Podiatry Exam: Does not see a Concert Singer Most recent HbA1c: 9.6%, 04/18/2024 Random Glucose- 222 mg/dL, Today Price Economist Required: No Accompanied by: Significant Other Allergies sitagliptin [From JANUVBARBARA] Allergy (Unknown, Verified 04/18/24 10:58) vomitting dulaglutide [From Zahida] Adverse Reaction (Intermediate, Verified 04/18/24 10:58) Rash pioglitazone [From Actos] Adverse Reaction (Intermediate, Verified 04/18/24 10:58) palpatations HPI Comments Details: 72 year old male with a past medical history of type 2 diabetes presenting for follow up Medical hx: PAD, hypertension, hyperlipidemia, OA Initially diagnosed with T2DM >10 years. A1C today 9.6% Current regimen:On metformin 1000 mg BID. Last seen in endocrine f/up in fall 2022. At that time GMI 6.4% was advised to increase Ozempic to 1mg weekly and stop glimepiride. Patient stopped the glimepiride. Never received the 1mg ozempic. Was on ozempic until early 2023-hasn't received since. Intolerant meds: deon jaime, actos Has [employer]ell[employer]ics enrrique 2 CGM-has not been getting covered? Enrrique download two weeks ago show GMI 8.6 TGT 46% High 54% Low 0%. Family history of T2DM in sisters have Type 2 DM and mother . Sees ophtho -very overdue Sees podiatry every 3 mos Micro/macrovascular complications: PAD, osteo s/p right BKA. On KHALIDA/ARB. On statin Not Had diabetes education. ROS CONSTITUTIONAL: Denies weight loss, fever and chills. HEENT: Denies changes in vision and hearing. RESPIRATORY: Denies SOB and cough. CV: Denies palpitations and CP GI: Denies abdominal pain, nausea, vomiting and diarrhea. : Denies dysuria and urinary frequency. MSK: Denies new myalgia and joint pain. SKIN: Denies rash and pruritus. NEUROLOGICAL: Denies headache PSYCHIATRIC: Denies recent changes in mood. PHYSICAL EXAM: GENERAL: Alert and oriented x 3. NAD EYES: EOMI. Anicteric. HENT: Moist mucous membranes. No scleral icterus. No cervical lymphadenopathy. LUNGS: Clear to auscultation bilaterally. CARDIOVASCULAR: RRR with ectopic beats ABDOMEN: Soft, non-tender +bs EXTREMITIES: RBKA SKIN: No rashes or lesions. Warm. NEUROLOGIC: No focal neurological deficits. CN II-XII grossly intact PSYCHIATRIC: Cooperative. Appropriate mood and affect [facility] Medical History PAD (peripheral artery disease) Other and unspecified hyperlipidemia Essential hypertension Type 2 diabetes mellitus with unspecified complications Allergic rhinitis Stroke Nausea & vomiting Hospital discharge follow-up Atypical chest pain Diabetes Hyperlipidemia HTN (hypertension) Surgical History History of amputation below knee History of amputation of toe History of amputation of great toe Hx of colonoscopy Family History Father No problems noted. Mother Myocardial infarction Sister Diabetes Hypertension Social History Household Members: Spouse Housing: House Do you presently have visiting nurse or other home services: No Alcohol intake: current Alcohol intake frequency: holidays/special occasions only Alcohol type: beer Patient Tobacco Use Status: Never used Tobacco e-Cigarette/Vaping Use: Never Used Second Hand Smoke Exposure: No Advance Directives Date on File: 12/22/23 service: No Current occupational status: retired Cognitive needs: Yes (Wheel Chair) Hearing needs: No Vision needs: No Physical Exam Vital Signs: Last Vital Signs Pulse 86 04/18/24 10:53 BP 120/72 04/18/24 10:53 Results AMB Hemoglobin A1c AMB Hemoglobin A1c 9.6 % Last Edit by ELADIA Forrester on 04/18/24 11:13 Results Reviewed Results Reviewed: Laboratory Last Values Glucose (Clinic) 222 mg/dL (60-115) H 04/18/24 11:00 Hgb A1c (Clinic) 9.6 % (4.0-6.0) H 04/18/24 11:12 Assessment & Plan Assessment & Plan (1) PAD (peripheral artery disease): Code(s): I73.9 - Peripheral vascular disease, unspecified Category: Medical Plan: continue follow up vascular. Needs tight glycemic control (2) S/P BKA (below knee amputation): Code(s): Z89.519 - Acquired absence of unspecified leg below knee Category: Surgical Qualifiers: Laterality: right Qualified Code(s): Z89.511 - Acquired absence of right leg below knee Plan: continue vascular (3) PAD (peripheral artery disease): Comment: 12/21/2023 right lower extremity diagnostic angiogram 01/26/2024 right BKA Code(s): I73.9 - Peripheral vascular disease, unspecified Category: Medical Plan: glycemic control continue vascular (4) Type 2 diabetes mellitus with unspecified complications: Code(s): E11.8 - Type 2 diabetes mellitus with unspecified complications Category: Medical Plan: With hyperglycemia Needs to restart ozempic. will start 0.5 and reevaluate in one month continue metformin Micro/macrovascular complications reviewed Plan one month follow up. need to get A1C at goal Orders: Orders AMB Hemoglobin A1c Today E11.9 - Type 2 diabetes mellitus without complications Medications: New semaglutide 0.5 mg (0.736 mL) subcut QWEEK 4 weeks 2.944 mL 0RF FreeStyle Enrrique 2 Sensor (flash glucose sensor) As directed 6 ea 3RF NS E11.8 - Type 2 diabetes mellitus with unspecified complications FreeStyle Enrrique 2 Firestone (flash glucose scanning reader) As directed 1 ea 0RF NS E11.8 - Type 2 diabetes mellitus with unspecified complications Changed From blood sugar diagnostic (FreeStyle Lite Strips) As directed tests 4 X/day 100 ea 4RF E11.8 - Type 2 diabetes mellitus with unspecified complications To FreeStyle Lite Strips (blood sugar diagnostic) As directed tests 4 X/day 100 ea 4RF NS E11.8 - Type 2 diabetes mellitus with unspecified complications Coding Level of Care Code Est Pt Level 5 (35465) Diagnoses PAD (peripheral artery disease) I73.9 Status post below-knee amputation of right lower extremity Z89.511 Laterality: right Type 2 diabetes mellitus with unspecified complications E11.8
[2024-04-18 11:04] LABS: Glucose, Whole Blood 222 mg/dL (60-115)
== END 2024-04-18 11:37 | disposition home or self-care (01) ==
PROVIDERS: PCP Physician Assistant; Visit Provider Internal Medicine
DX: I73.9 Peripheral vascular disease, unspecified (principal); Z89.511 Acquired absence of right leg below knee; E11.51 Type 2 diabetes mellitus with diabetic peripheral angiopathy without gangrene
CPT/HCPCS: 99214

== ENCOUNTER → 2024-04-18 10:35 | Outpatient (BNVA) | payer MEDICARE, SELFPAY | PROVIDERS: PCP Physician Assistant; Visit Provider Internal Medicine | DX: I73.9 Peripheral vascular disease, unspecified (principal); E11.8 Type 2 diabetes mellitus with unspecified complications; Z89.511 Acquired absence of right leg below knee | CPT/HCPCS: 82947; 83036; 99212 ==

== ENCOUNTER 2024-05-03 09:13 | Outpatient (AMB) | payer MEDICARE, SELFPAY ==
[2024-05-03 09:19] VITALS: BP 132/82; PULSE 94; O2SAT 97; BMI 22.3
--- NOTE | 2024-05-03 09:19 | A.OFFPC_ITS ---
Vital Signs 3 05/03/24 09:19 Height 5 ft 11 in Weight 160 lb BMI 22.3 BP 132/82 Blood Pressure Location Lt brachial Position Sitting Pulse 94 Pulse Source Pulse Oximeter Pulse Oximetry (%) 97 Oxygen Delivery Method Room Air Intake Visit Reasons: Follow Up Food Safety Auditor Required: No Accompanied by: Spouse Allergies sitagliptin [From JANUVIA] Allergy (Unknown, Verified 05/03/24 09:39) vomitting dulaglutide [From Trulicity] Adverse Reaction (Intermediate, Verified 05/03/24 09:39) Rash pioglitazone [From Actos] Adverse Reaction (Intermediate, Verified 05/03/24 09:39) palpatations Medication List - Last Reconciled 05/03/24 by Vikash Pompa PA-C acetaminophen (Tylenol Extra Strength) 500 mg PO Q6H PRN amlodipine 10 mg PO DAILY aspirin 81 mg PO DAILY 90 days blood-glucose meter (FreeStyle Lite Meter kit) As directed tests 4 X/day blood-glucose sensor (DexEnsenda G7 Sensor device) As directed change every 10 days chair, wheel (Wheel chair) As directed FreeStyle Enrrique 2 [place] (flash glucose scanning reader) As directed NS FreeStyle Enrrique 2 Sensor (flash glucose sensor) As directed NS FreeStyle Lite Strips (blood sugar diagnostic) As directed tests 4 X/day NS lisinopril 10 mg PO DAILY 90 days metformin 1,000 mg PO BID 90 days semaglutide 0.5 mg (0.736 mL) subcut QWEEK 4 weeks simvastatin 40 mg PO BEDTIME walker Folding Front wheeled walker walker Folding Front wheeled walker Tobacco use date assessed: 04/06/24 Fall risk assessment: No Falls in past year Last assessed Fall Risk: 05/03/24 Dental Screening Dental Screen Date: 11/09/23 HPI Follow Up 2 HPI0 Details Patient is a 74 year male here today for a follow-up visit. . He is due for left knee total replace ment this month. Patient has a past medical history significant for hypertension, uncontrolled diabetes, hyperlipidemia. . Hypertension: Patient's blood pressure acceptable today in office. Continues with lisinopril 10 mg daily with good effect. . 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 Now followed by endocrinology. Has read restarted on Ozempic 0.5 mg, unfortunately reports his blood sugars are still 180s to 200 fasting in the morning. HE IS NOW WILLING TO START LONG-ACTING INSULIN 10 UNITS DAILY. Most recent A1c above 9. ?Now talking to a hospital educator and has continues glucose monitor.. [facility] Medical History PAD (peripheral artery disease) Other and unspecified hyperlipidemia Essential hypertension Type 2 diabetes mellitus with unspecified complications Allergic rhinitis Stroke Nausea & vomiting Hospital discharge follow-up Atypical chest pain Diabetes Hyperlipidemia HTN (hypertension) Surgical History History of amputation below knee History of amputation of toe History of amputation of great toe Hx of colonoscopy Family History Father No problems noted. Mother Myocardial infarction Sister Diabetes Hypertension Social History Household Members: Spouse Housing: House Do you presently have visiting nurse or other home services: No Alcohol intake: current Alcohol intake frequency: holidays/special occasions only Alcohol type: beer Patient Tobacco Use Status: Never used Tobacco e-Cigarette/Vaping Use: Never Used Second Hand Smoke Exposure: No Advance Directives Date on File: 12/22/23 service: No Current occupational status: retired Cognitive needs: Yes (Wheel Chair) Hearing needs: No Vision needs: No Questionnaire Thrive Questionnaire Date Thrive assessed: 01/17/24 VICTOR HUGO-7 AMB Questionnaire VICTOR HUGO-7 Date VICTOR HUGO - 7 assessed: 09/14/23 Source: Developed by Drs. Peter Galdamez, Gala Esquivel, Warren Wayne and colleagues, with an educational xuan from [employer]. Review of Systems Const Denies headache(s) Eyes Denies loss of vision ENT Denies vertigo, Denies dizziness, Denies headache(s) and Denies sore throat Card Denies chest pain, Denies leg edema and Denies lightheadedness Resp Denies cough, Denies hemoptysis and Denies wheezing GI Denies abdominal pain, Denies melena, Denies constipation, Denies diarrhea and Denies vomiting Denies dysuria, Denies urinary frequency and Denies urinary urgency Musc Denies arthralgias, Denies joint swelling, Denies numbness and Denies tingling Neuro Denies Abnormal speech present, Denies behavioral changes, Denies vertigo, Denies dizziness, Denies headache(s), Denies loss of vision, Denies memory loss, Denies numbness and Denies tingling Psych Denies anxiety, Denies behavioral changes, Denies depression, Denies memory loss and Denies panic attacks Ankit/Lymph Denies easy bleeding and Denies easy bruising Aller/Immun Denies wheezing Physical exam (Primary Care) Vital Signs: Last Vital Signs Pulse 94 05/03/24 09:19 BP 132/82 05/03/24 09:19 Pulse Ox 97 05/03/24 09:19 Oxygen Delivery Method Room Air 05/03/24 09:19 BMI result Body Mass Index 22.3 Tobacco/Smoking Status: Tobacco use Status Tobacco use date assessed 04/06/24 05/03/24 09:19 Patient Tobacco Use Status Never used Tobacco 05/03/24 09:19 e-Cigarette/Vaping Use Never Used 05/03/24 09:19 Thrive Assessment: Date of Thrive Assessment Date Thrive assessed 01/17/24 05/03/24 09:19 Const General: healthy appearing, no acute distress, alert and awake Nutritional Appearance: well nourished Orientation/consciousness: oriented to person, oriented to place and oriented to time HENMT Ears: TM's normal bilaterally General nose exam: Normal nasal mucous membranes and turbinates present Eyes Conjunctivae: conjunctivae normal Sclerae: sclerae normal Pupils: Equal, round and reactive pupils present Neck Neck: Yes no lymphadenopathy and Yes no JVD Thyroid: Thyroid normal Carotids: no bruits Resp Effort & Inspection: normal respiratory effort and not tachypneic Auscultation: no crackles, no rales, no rhonchi and no wheezes Cardio Rate: regular rate Rhythm: regular rhythm Heart sounds: no murmurs and normal S1 and S2 GI Palpation (GI): Soft to palpation, nontender, no hepatomegaly and no splenomegaly Auscultation: normal bowel sounds Skin General skin exam: no rashes or lesions noted and dry skin Neuro General: oriented to person, oriented to place and oriented to time Cranial nerves: Yes Equal, round and reactive pupils present Speech: No Abnormal speech present Gait exam (Neuro): Normal gait present Motor exam (neuro): no tremor noted Extrem Right upper extremity: full ROM Left upper extremity: full ROM Right lower extremity: full ROM; no edema Left lower extremity: full ROM; no edema Upper/lower leg/hip images: 2 1. NOTED BELOW KNEE AMPUTATION Psych Mental Status: mental status grossly normal Speech and movement: Normal speech and movement present Affect: normal affect Attitude: cooperative Thought process: Normal thought process present Assessment and Plan Assessment & Plan (1) HTN (hypertension): Code(s): I10 - Essential (primary) hypertension Qualifiers: Hypertension type: essential hypertension Qualified Code(s): I10 - Essential (primary) hypertension Plan: Patient's blood pressure Repeat blood pressure reading much improved. He reports blood pressure readings at home been 120s to 130 systolic. Will continue current dose of antihypertensive medication with goal blood pressure to remain below 140/90 (2) Type 2 diabetes mellitus with unspecified complications: Code(s): E11.8 - Type 2 diabetes mellitus with unspecified complications Plan: Patient's type 2 diabetes is suboptimally controlled in outpatient followed now by an supervising airplane pilot. Patient's type 2 diabetes suboptimally controlled. Has restarted Ozempic 0.5 mg weekly though reports fasting sugars still 180s to 200s. He is now willing to start long-acting insulin on a daily basis for better glycemic control. (3) S/P BKA (below knee amputation): Code(s): Z89.519 - Acquired absence of unspecified leg below knee Qualifiers: Laterality: right Qualified Code(s): Z89.511 - Acquired absence of right leg below knee Plan: Has right below-knee amputation. Still in healing process and is waiting to get prosthesis Orders: Orders 2 Comprehensive [place]. Panel Fast Today I10 - Essential (primary) hypertension Complete Blood Count no Diff Today I10 - Essential (primary) hypertension Lipid Panel Today E11.8 - Type 2 diabetes mellitus with unspecified complications Microalbumin, Random (w Creat) Today I10 - Essential (primary) hypertension Prostate Specific Antigen Scr Today I10 - Essential (primary) hypertension, Z12.5 - Encounter for screening for malignant neoplasm of prostate Medications: New 2 insulin glargine (Lantus Solostar U-100 Insulin) 10 units (0.1 mL) subcut QAM 15 mL 1RF 30 days E11.8 - Type 2 diabetes mellitus with unspecified complications pen needle, diabetic (BD Ultra-Fine Sarah Pen Needle) As directed 100 ea 1RF E11.8 - Type 2 diabetes mellitus with unspecified complications Changed 2 From simvastatin 40 mg PO BEDTIME E11.8 - Type 2 diabetes mellitus with unspecified complications To simvastatin 40 mg PO BEDTIME 90 tabs 1RF 90 days E11.8 - Type 2 diabetes mellitus with unspecified complications Refilled 2 lisinopril 10 mg PO DAILY 90 tabs 1RF 90 days I10 - Essential (primary) hypertension Coding Level of Care Code Est Pt Level 4 (64764) Diagnoses Essential hypertension I10 Hypertension type: essential hypertension Type 2 diabetes mellitus with unspecified complications E11.8 Status post below-knee amputation of right lower extremity Z89.511 Laterality: right
== END 2024-05-03 10:07 | disposition home or self-care (01) ==
PROVIDERS: PCP Physician Assistant; Visit Provider Physician Assistant
DX: I10 Essential (primary) hypertension (principal); E11.8 Type 2 diabetes mellitus with unspecified complications; Z89.511 Acquired absence of right leg below knee
CPT/HCPCS: 99214

== ENCOUNTER 2024-05-16 10:43 | Outpatient (AMB) | payer MEDICARE, SELFPAY ==
--- NOTE | 2024-05-16 10:48 | A.OFFVIS_ITS ---
Vital Signs 05/16/24 10:51 Height 5 ft 11 in Weight 160 lb BMI 22.3 BP 128/78 Blood Pressure Location Rt brachial Position Sitting Pulse 75 Pulse Source Pulse Oximeter Intake Visit Reasons: T2DM/CONFIRMED Intake Note: Patient presents today for a follow-up for Type 2 Diabetes Mellitus: Last Diabetic Eye exam: OVER DUE Last Podiatry Exam: Does not see a Shell Coremaker Most recent HbA1c: 9.6%, 04/18/2024 Random Glucose- 145mg/dL, Today Icicle Machine Operator Required: No Accompanied by: Significant Other Allergies sitagliptin [From JANUVIA] Allergy (Unknown, Verified 05/16/24 10:48) vomitting dulaglutide [From Trulicity] Adverse Reaction (Intermediate, Verified 05/16/24 10:48) Rash pioglitazone [From Actos] Adverse Reaction (Intermediate, Verified 05/16/24 10:48) palpatations HPI Comments Details: 72 year old male with a past medical history of type 2 diabetes presenting for follow up Medical hx: PAD, hypertension, hyperlipidemia, OA Initially diagnosed with T2DM >10 years. A1C today last visit 9.6% Current regimen:On metformin 1000 mg BID, ozempic 0.5mg weekly and started approx 10 days ago on lantus 10 units from PCP. Intolerant meds: trulicity, januvia, actos. Previously on glimepiride Has TheraVida manuela 2 CGM-sensor downloaded today. Last A1C 9.6%. Today GMI 7.8% with 52% TGT range high 48% low 0% Family history of T2DM in sisters have Type 2 DM and mother Sees ophtho -very overdue Sees podiatry every 3 mos Micro/macrovascular complications: PAD, osteo s/p right BKA. On KHALIDA/ARB. On statin ROS CONSTITUTIONAL: Denies weight loss, fever and chills. HEENT: Denies changes in vision and hearing. RESPIRATORY: Denies SOB and cough. CV: Denies palpitations and CP GI: Denies abdominal pain, nausea, vomiting and diarrhea. : Denies dysuria and urinary frequency. MSK: Denies new myalgia and joint pain. SKIN: Denies rash and pruritus. NEUROLOGICAL: Denies headache PSYCHIATRIC: Denies recent changes in mood. PHYSICAL EXAM: GENERAL: Alert and oriented x 3. NAD EYES: EOMI. Anicteric. HENT: Moist mucous membranes. No scleral icterus. No cervical lymphadenopathy. LUNGS: Clear to auscultation bilaterally. CARDIOVASCULAR: RRR with ectopic beats ABDOMEN: Soft, non-tender +bs EXTREMITIES: RBKA SKIN: No rashes or lesions. Warm. NEUROLOGIC: No focal neurological deficits. CN II-XII grossly intact PSYCHIATRIC: Cooperative. Appropriate mood and affect [facility] Medical History PAD (peripheral artery disease) Other and unspecified hyperlipidemia Essential hypertension Type 2 diabetes mellitus with unspecified complications Allergic rhinitis Stroke Nausea & vomiting Hospital discharge follow-up Atypical chest pain Diabetes Hyperlipidemia HTN (hypertension) Surgical History History of amputation below knee History of amputation of toe History of amputation of great toe Hx of colonoscopy Family History Father No problems noted. Mother Myocardial infarction Sister Diabetes Hypertension Social History Household Members: Spouse Housing: House Do you presently have visiting nurse or other home services: No Alcohol intake: current Alcohol intake frequency: holidays/special occasions only Alcohol type: beer Patient Tobacco Use Status: Never used Tobacco e-Cigarette/Vaping Use: Never Used Second Hand Smoke Exposure: No Advance Directives Date on File: 12/22/23 service: No Current occupational status: retired Cognitive needs: Yes (Wheel Chair) Hearing needs: No Vision needs: No Physical Exam Vital Signs: Last Vital Signs Pulse 75 05/16/24 10:51 BP 128/78 05/16/24 10:51 BMI result Body Mass Index 22.3 Assessment & Plan Assessment & Plan (1) Type 2 diabetes mellitus with unspecified complications: Code(s): E11.8 - Type 2 diabetes mellitus with unspecified complications Category: Medical Plan: Improving glycemic control. Will increase to lantus 12u for 2-3 days then if tolerated increase to 14units. refills for ozempic sent. continue metformin. Congratulated on interval improvement. Medications: Changed From insulin glargine (Lantus Solostar U-100 Insulin) 10 units (0.1 mL) subcut QAM 30 days 15 mL 1RF E11.8 - Type 2 diabetes mellitus with unspecified complications To Lantus Solostar U-100 Insulin (insulin glargine) 14 units (0.14 mL) subcut QAM 90 days 12.6 mL 3RF NS E11.8 - Type 2 diabetes mellitus with unspecified complications Refilled semaglutide 0.5 mg (0.736 mL) subcut QWEEK 4 weeks 2.944 mL 0RF Coding Level of Care Code Est Pt Level 4 (85962) Diagnoses Type 2 diabetes mellitus with unspecified complications E11.8
[2024-05-16 10:51] VITALS: BP 128/78; PULSE 75; BMI 22.3
[2024-05-16 11:01] LABS: Glucose, Whole Blood 145 mg/dL (60-115)
== END 2024-05-16 11:22 | disposition home or self-care (01) ==
PROVIDERS: PCP Physician Assistant; Visit Provider Internal Medicine
DX: E11.8 Type 2 diabetes mellitus with unspecified complications (principal)
CPT/HCPCS: 99214

== ENCOUNTER → 2024-05-16 10:43 | Outpatient (BNVA) | payer MEDICARE, SELFPAY | PROVIDERS: PCP Physician Assistant; Visit Provider Internal Medicine | DX: E11.8 Type 2 diabetes mellitus with unspecified complications (principal) | CPT/HCPCS: 82947; 99212 ==

== ENCOUNTER 2024-06-14 11:42 | Outpatient (REF) | payer MEDICARE, SELFPAY ==
--- NOTE | ~2024-06-14 | US_ITS ---
EXAMINATION: US NONINVASIVE ASSESSMENT OF THE LEFT LOWER EXTREMITY WITH ARTERIAL DUPLEX AND ANKLE BRACHIAL INDICES (ABIS) CLINICAL INFORMATION: Peripheral vascular disease COMPARISON: Arterial duplex on 12/19/2023 TECHNIQUE: Duplex Doppler techniques with waveform analysis and measurement of velocities in the common femoral, profunda femoris, superficial femoral, popliteal and tibial arteries were performed. In addition, ankle pulse volume recordings, ankle pressure measurements and ankle brachial indices were obtained of the left lower extremity arterial system. The study was performed only at rest. FINDINGS: NONINVASIVE ASSESSMENT OF THE ARTERIES OF BILATERAL LOWER EXTREMITIES WITH ABIs: LEFT LEG: Ankle-brachial index: 1.58 Left ankle PVR: Normal MARIEL Reference: 0.9 - 1.4 = normal - no significant arterial disease 0.7 - 0.89 = mild peripheral arterial disease 0.51 - 0.69 = moderate peripheral arterial disease 0.50 = severe peripheral arterial disease LEFT LOWER EXTREMITY DUPLEX ULTRASOUND: Common femoral artery: 83 cm/s. Diastolic flow reversal: Present Profunda femoris artery: 72 cm/s. Diastolic flow reversal: Present Superficial femoral artery (proximal): 55 cm/s. Diastolic flow reversal: Present Superficial femoral artery (mid): 94 cm/s. Diastolic flow reversal: Present Superficial femoral artery (distal): 66 cm/s. Diastolic flow reversal: Present Popliteal artery: 64 cm/s Diastolic flow reversal: Present Posterior tibial artery: 104 cm/s Diastolic flow reversal: Present There is a 3.9 x 1.2 x 3.3 cm Torres cyst. US/US MARIEL complete IMPRESSION: 1. Elevated MARIEL suggests atherosclerotic disease. 2. Improvement in velocity in the posterior tibial artery. Electronically signed by: Helga Maguire MD 06/17/2024 08:35 AM EDT
--- NOTE | ~2024-06-14 | US_ITS ---
EXAMINATION: US NONINVASIVE ASSESSMENT OF THE LEFT LOWER EXTREMITY WITH ARTERIAL DUPLEX AND ANKLE BRACHIAL INDICES (ABIS) CLINICAL INFORMATION: Peripheral vascular disease COMPARISON: Arterial duplex on 12/19/2023 TECHNIQUE: Duplex Doppler techniques with waveform analysis and measurement of velocities in the common femoral, profunda femoris, superficial femoral, popliteal and tibial arteries were performed. In addition, ankle pulse volume recordings, ankle pressure measurements and ankle brachial indices were obtained of the left lower extremity arterial system. The study was performed only at rest. FINDINGS: NONINVASIVE ASSESSMENT OF THE ARTERIES OF BILATERAL LOWER EXTREMITIES WITH ABIs: LEFT LEG: Ankle-brachial index: 1.58 Left ankle PVR: Normal MARIEL Reference: 0.9 - 1.4 = normal - no significant arterial disease 0.7 - 0.89 = mild peripheral arterial disease 0.51 - 0.69 = moderate peripheral arterial disease 0.50 = severe peripheral arterial disease LEFT LOWER EXTREMITY DUPLEX ULTRASOUND: Common femoral artery: 83 cm/s. Diastolic flow reversal: Present Profunda femoris artery: 72 cm/s. Diastolic flow reversal: Present Superficial femoral artery (proximal): 55 cm/s. Diastolic flow reversal: Present Superficial femoral artery (mid): 94 cm/s. Diastolic flow reversal: Present Superficial femoral artery (distal): 66 cm/s. Diastolic flow reversal: Present Popliteal artery: 64 cm/s Diastolic flow reversal: Present Posterior tibial artery: 104 cm/s Diastolic flow reversal: Present There is a 3.9 x 1.2 x 3.3 cm Torres cyst. US/US arterial duplex LE LT IMPRESSION: 1. Elevated MARIEL suggests atherosclerotic disease. 2. Improvement in velocity in the posterior tibial artery. Electronically signed by: Helga Maguire MD 06/17/2024 08:35 AM EDT
== END 2024-06-14 11:43 | disposition home or self-care (01) ==
LOC: HO.US 11:42
PROVIDERS: PCP Physician Assistant; Visit Provider Surgery Vascular Surgery
DX: I73.9 Peripheral vascular disease, unspecified (principal)
CPT/HCPCS: 93923; 93926

== ENCOUNTER 2024-06-20 09:31 | Outpatient (AMB) | payer MEDICARE, SELFPAY ==
--- NOTE | 2024-06-20 09:47 | A.OFFVIS_ITS ---
Vital Signs 06/20/24 09:50 Height 5 ft 11 in Weight 160 lb BMI 22.3 BP 130/72 Blood Pressure Location Rt brachial Position Sitting Pulse 91 Pulse Source Pulse Oximeter Intake Visit Reasons: F/u DM/CONFIRMED Intake Note: Patient presents today for a follow-up for Type 2 Diabetes Mellitus: Last Diabetic Eye exam: OVER DUE Last Podiatry Exam: Does not see a Business Analytics Director Most recent HbA1c: 9.6%, 04/18/2024 Random Glucose- 179 mg/dL, Today Freelance Director Required: No Accompanied by: Significant Other Allergies sitagliptin [From JANUVIA] Allergy (Unknown, Verified 05/16/24 10:48) vomitting dulaglutide [From Trulicity] Adverse Reaction (Intermediate, Verified 05/16/24 10:48) Rash pioglitazone [From Actos] Adverse Reaction (Intermediate, Verified 05/16/24 10:48) palpatations HPI Comments Details: 74 year old male with a past medical history of type 2 diabetes presenting for follow up Medical hx: PAD, hypertension, hyperlipidemia, OA Initially diagnosed with T2DM >10 years. A1C today last visit 9.6% Current regimen:On metformin 1000 mg BID, ozempic 0.5mg weekly and lantus 14 units. Intolerant meds: trulicity, januvia, actos. Previously on glimepiride Has Pango manuela 2 CGM-sensor downloaded today. Last A1C 9.6%. Today GMI 7.6% with 57% TGT range high 43% low 0%. Highs are almost exclusively after dinner. Family history of T2DM in sisters have Type 2 DM and mother Sees ophtho -very overdue Sees podiatry every 3 mos Micro/macrovascular complications: PAD, osteo s/p right BKA. On KHALIDA/ARB. On statin ROS CONSTITUTIONAL: Denies weight loss, fever and chills. HEENT: Denies changes in vision and hearing. RESPIRATORY: Denies SOB and cough. CV: Denies palpitations and CP GI: Denies abdominal pain, nausea, vomiting and diarrhea. : Denies dysuria and urinary frequency. MSK: Denies new myalgia and joint pain. SKIN: Denies rash and pruritus. NEUROLOGICAL: Denies headache PSYCHIATRIC: Denies recent changes in mood. PHYSICAL EXAM: GENERAL: Alert and oriented x 3. NAD EYES: EOMI. Anicteric. HENT: Moist mucous membranes. No scleral icterus. No cervical lymphadenopathy. LUNGS: Clear to auscultation bilaterally. CARDIOVASCULAR: RRR with ectopic beats ABDOMEN: Soft, non-tender +bs EXTREMITIES: RBKA SKIN: No rashes or lesions. Warm. NEUROLOGIC: No focal neurological deficits. CN II-XII grossly intact PSYCHIATRIC: Cooperative. Appropriate mood and affect [facility] Medical History PAD (peripheral artery disease) Other and unspecified hyperlipidemia Essential hypertension Type 2 diabetes mellitus with unspecified complications Allergic rhinitis Stroke Nausea & vomiting Hospital discharge follow-up Atypical chest pain Diabetes Hyperlipidemia HTN (hypertension) Surgical History History of amputation below knee History of amputation of toe History of amputation of great toe Hx of colonoscopy Family History Father No problems noted. Mother Myocardial infarction Sister Diabetes Hypertension Social History Household Members: Spouse Housing: House Do you presently have visiting nurse or other home services: No Alcohol intake: current Alcohol intake frequency: holidays/special occasions only Alcohol type: beer Patient Tobacco Use Status: Never used Tobacco e-Cigarette/Vaping Use: Never Used Second Hand Smoke Exposure: No Advance Directives Date on File: 12/22/23 service: No Current occupational status: retired Cognitive needs: Yes (Wheel Chair) Hearing needs: No Vision needs: No Physical Exam Vital Signs: Last Vital Signs Pulse 91 06/20/24 09:50 BP 130/72 06/20/24 09:50 BMI result Body Mass Index 22.3 Office Procedures Glucose Monitoring Details 57090 - Continuous Glucose Monitoring, patient provides equipment Procedure code (CPT) selection complete Results Reviewed Results Reviewed: Laboratory Last Values Glucose (Clinic) 178 mg/dL (60-115) H 06/20/24 09:55 Assessment & Plan Assessment & Plan (1) Type 2 diabetes mellitus with unspecified complications: Code(s): E11.8 - Type 2 diabetes mellitus with unspecified complications Category: Medical Plan: Improving glycemic control Continue current insulin dose Discussed short acting insulin before dinner or glipizide prior to dinner. He has tolerated glipizide in the past. Discussed drawback of glipizide could potentially be continuing to work too much overnight. Ultimately we will try to spare him an additional injection and try the glipizide. He is using the CGM and aware how to treat lows should they happen Will plan follow up in 1 month for meter review. Orders: Orders AMB Glucose Monitoring Today E11.8 - Type 2 diabetes mellitus with unspecified complications Medications: New glipizide 30 minutes prior to dinner 5 mg PO DAILY 90 tabs 3RF E11.8 - Type 2 diabetes mellitus with unspecified complications Coding Level of Care Code Est Pt Level 4 (56401) Diagnoses Type 2 diabetes mellitus with unspecified complications E11.8 CPT Codes Details - CPT: 41608 - Continuous Glucose Monitoring, patient provides equipment ([id number])
[2024-06-20 09:50] VITALS: BP 130/72; PULSE 91; BMI 22.3
[2024-06-20 09:59] LABS: Glucose, Whole Blood 178 mg/dL (60-115)
== END 2024-06-20 10:33 | disposition home or self-care (01) ==
PROVIDERS: PCP Physician Assistant; Visit Provider Internal Medicine
DX: E11.8 Type 2 diabetes mellitus with unspecified complications (principal)

== ENCOUNTER → 2024-06-20 09:31 | Outpatient (BNVA) | payer MEDICARE, SELFPAY | PROVIDERS: PCP Physician Assistant; Visit Provider Internal Medicine | DX: E11.8 Type 2 diabetes mellitus with unspecified complications (principal); E78.5 Hyperlipidemia, unspecified; M19.90 Unspecified osteoarthritis, unspecified site; I10 Essential (primary) hypertension | CPT/HCPCS: 82947; 95249; 99212 ==

== ENCOUNTER 2024-07-05 09:00 | Outpatient (AMB) | payer MEDICARE, SELFPAY ==
--- NOTE | 2024-07-05 09:42 | A.OFFVIS_ITS ---
VS Expanded 07/05/24 13:47 Comment Pt is wheelchair d/t bka Intake Visit Reasons: T2DM/CONFIRMED Allergies sitagliptin [From JANUVIA] Allergy (Unknown, Verified 05/16/24 10:48) vomitting dulaglutide [From Trulicity] Adverse Reaction (Intermediate, Verified 05/16/24 10:48) Rash pioglitazone [From Actos] Adverse Reaction (Intermediate, Verified 05/16/24 10:48) palpatations Nutrition Presentation Details: Pt presents for MNT f/u for T2DM Pt presents with during this appt Pt c/o elevated bg regardless of what he eats This morning bg at 245 after farina with activia yogurt, coffee with diet sugar unflavored cream snacks: fruits or crackers, sometimes with juice dinner: root vegetables with beef , water or diet soda BS Monitoring Most Recent Diabetes Results: No Data to Display [facility] Medical History PAD (peripheral artery disease) Other and unspecified hyperlipidemia Essential hypertension Type 2 diabetes mellitus with unspecified complications Allergic rhinitis Stroke Nausea & vomiting Hospital discharge follow-up Atypical chest pain Diabetes Hyperlipidemia HTN (hypertension) Surgical History History of amputation below knee History of amputation of toe History of amputation of great toe Hx of colonoscopy Family History Father No problems noted. Mother Myocardial infarction Sister Diabetes Hypertension Social History Household Members: Spouse Housing: House Do you presently have visiting nurse or other home services: No Alcohol intake: current Alcohol intake frequency: holidays/special occasions only Alcohol type: beer Patient Tobacco Use Status: Never used Tobacco e-Cigarette/Vaping Use: Never Used Second Hand Smoke Exposure: No Advance Directives Date on File: 12/22/23 service: No Current occupational status: retired Cognitive needs: Yes (Wheel Chair) Hearing needs: No Vision needs: No Assessment & Plan Assessment & Plan (1) Type 2 diabetes mellitus with unspecified complications: Code(s): E11.8 - Type 2 diabetes mellitus with unspecified complications Category: Medical Plan: Importance of balancing meals by following Healthy plate method , including lean protein and fiber rich foods Used wt : 83 kg Est kcal as per 25/kg BW: 2067 (40% carb, 30% fat/prot) Est fluid needs: 2100 ml/d (25 ml/kg bw) Rec fiber: increase to 8-10 g per day and gradually increase to 35 g or as tolerated Rec Na: < 2000 mg /d Educate patient on: (R= Reviewed, V = verbalizes understanding N/R= Needs review N/A= not applicable) * Food sources of carbohydrates and serving adequate serving sizes : R , v * role of protein and fiber to maintain glucose control: R * Difference between complex carbohydrates and simple carbohydrates, role of fiber: R , v * Differences between fats (MUFA/PUFA/saturated fats, trans fats) and food sources of various fats: R * Food sources of sodium and salt and healthy modifications for heart health and kidney health: R * Vitamins and minerals: R * How to interpret food labels: R * Healthy Plate method concept: R V * Physical activity: benefits and precaution: R, V * hypoglycemia, sign , symptoms and rule of 15 to treat it: R Patient Instructions: Include protein at breakfast example add peanut butter to farina, or make farina with fairlife (higher protein milk ) or reduce portion of farina and have scrambled eggs on the side Choose lower starchy vegetables like pumpkin, corn on the cob along with protein and non starchy vegetables (carrots, cauliflower, cabbage) kEEP HYDRATED BY HAVING WAER WITH MEALS OR A CUP OF MILK Coding Level of Care Code Nutr Indiv Subseq (60084) Diagnoses Type 2 diabetes mellitus with unspecified complications E11.8 Time Spent (min) 30
== END 2024-07-05 10:12 | disposition home or self-care (01) ==
PROVIDERS: PCP Physician Assistant; Visit Provider Dietitian, Registered
DX: E11.8 Type 2 diabetes mellitus with unspecified complications (principal)

== ENCOUNTER → 2024-07-05 09:00 | Outpatient (BNVA) | payer MEDICARE, SELFPAY | PROVIDERS: PCP Physician Assistant; Visit Provider Dietitian, Registered | DX: E11.8 Type 2 diabetes mellitus with unspecified complications (principal); Z71.3 Dietary counseling and surveillance; Z99.3 Dependence on wheelchair | CPT/HCPCS: 97803 ==

== ENCOUNTER 2024-07-10 14:06 | Outpatient (AMB) | payer MEDICARE, SELFPAY ==
--- NOTE | 2024-07-10 14:07 | A.OFFVIS_ITS ---
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 He had actually undergone right BKA by us on 01/26/2024. He appears to be doing extremely well with this. Has started use of his prosthetic. Now presents for routine surveillance follow-up regarding his left lower extremity. [facility] Medical History PAD (peripheral artery disease) Other and unspecified hyperlipidemia Essential hypertension Type 2 diabetes mellitus with unspecified complications Allergic rhinitis Stroke Nausea & vomiting Hospital discharge follow-up Atypical chest pain Diabetes Hyperlipidemia HTN (hypertension) Surgical History History of amputation below knee History of amputation of toe History of amputation of great toe Hx of colonoscopy Family History Father No problems noted. Mother Myocardial infarction Sister Diabetes Hypertension Social History (Updated 07/10/24 @ 14:11 by Yuli Clifford CMA) Household Members: Spouse Housing: House Do you presently have visiting nurse or other home services: No Alcohol intake: former Patient Tobacco Use Status: Never used Tobacco e-Cigarette/Vaping Use: Never Used Second Hand Smoke Exposure: No Advance Directives Date on File: 12/22/23 service: No Current occupational status: retired Cognitive needs: Yes (Wheel Chair) Hearing needs: No Vision needs: No Review of Systems Const All systems reviewed & are unremarkable except as noted in HPI and below Denies chills, Denies fatigue, Denies fever(s), Denies weight gain and Denies weight loss ENT Reports Normal hearing present and Denies dizziness Card Denies chest pain, Denies leg edema, Denies lightheadedness, Denies palpitations, Denies dyspnea on exertion, Denies orthopnea and Denies other Resp Denies cough and Denies dyspnea on exertion GI Denies hematochezia and Denies change in stool character Musc Denies abnormal gait, Denies muscle weakness, Denies numbness, Denies radiating pain into limb and Denies tingling Skin/Breast Denies skin ulcer and Denies wounds Neuro Reports Normal hearing present, Denies abnormal gait, Denies dizziness, Denies numbness and Denies tingling Psych Reports no additional complaints Endo Denies fatigue and Denies palpitations Physical Exam Const General: cooperative, healthy appearing and comfortable Orientation/consciousness: oriented to person, oriented to place and oriented to time HEENT Head: Yes normal to inspection Neck Neck: Yes normal visual inspection Carotids: no bruits Chest Chest palpation & inspection: normal inspection of the chest Resp Effort & Inspection: normal respiratory effort and able to speak in complete sentences Auscultation: clear to auscultation bilaterally, no crackles, no rales, no rhonchi and no wheezes Cardio Other: Left DP signals Rate: regular rate Rhythm: regular rhythm Heart sounds: S1 normal heart sound present and S2 normal heart sound present Bruits: no carotid bruits GI Inspection: Yes normal to inspection Skin Wounds: amputation site (Right BKA well-healed) Hair: normal Neuro General: oriented to person, oriented to place and oriented to time Cranial nerves: Yes CN's II-XII intact bilaterally and Yes Normal hearing present Cognition (Neuro): normal cognition Motor exam (neuro): 5/5 motor strength present throughout Extrem Other: venous exam: No significant superficial varicosities or spider telangiectasias, minimal edema General: No clubbing, No cyanosis and No edema Psych Appearance: grossly normal Mental Status: mental status grossly normal Speech and movement: Normal speech and movement present Results Reviewed Results Reviewed: Noninvasive arterial testing dated 06/14/2024 demonstrates an MARIEL of 1.58. This appears to be artifactually elevated and on direct ultrasound he does have reasonable flow down the leg. Assessment & Plan Assessment & Plan (1) PAD (peripheral artery disease): Comment: 12/21/2023 right lower extremity diagnostic angiogram 01/26/2024 right BKA Code(s): I73.9 - Peripheral vascular disease, unspecified Category: Medical Plan: In short patient is doing well in terms of his peripheral vascular disease. Right BKA is doing extremely well and he is starting use of his prosthetic. In terms of his left lower extremity it will be critical to surveilled this leg and make sure that this is intact as he already has an amputation. We did discuss routine risk factor modification inclusive of an appropriate diet. I will schedule him for surveillance ultrasound of the left lower extremity in a proximally 1 year's time. Should there be any interval issues happy to see him back sooner. Thank you for allowing us to assist in his care. If there are any questions or concerns please do not hesitate to contact us. Please note a longitudinal relationship has been created with the patient and we have been following and surveillance this chronic condition. Orders: Orders US arterial duplex LE LT 1 Week I73.9 - Peripheral vascular disease, unspecified Coding Level of Care Code Est Pt Level 4 (93190) Complex EM visit Add On G2211 Diagnoses PAD (peripheral artery disease) I73.9
== END 2024-07-10 14:23 | disposition home or self-care (01) ==
LOC: HO.HVS 14:06
PROVIDERS: PCP Physician Assistant; Visit Provider Surgery Vascular Surgery
DX: I73.9 Peripheral vascular disease, unspecified (principal)
CPT/HCPCS: 99214; G2211

== ENCOUNTER → 2024-07-10 14:06 | Outpatient (BNVA) | payer MEDICARE, SELFPAY | PROVIDERS: PCP Physician Assistant; Visit Provider Surgery Vascular Surgery | DX: I73.9 Peripheral vascular disease, unspecified (principal); Z99.3 Dependence on wheelchair | CPT/HCPCS: 99212 ==

== ENCOUNTER 2024-07-19 10:10 | Outpatient (AMB) | payer MEDICARE, SELFPAY ==
--- NOTE | 2024-07-19 10:18 | A.OFFVIS_ITS ---
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 Most recent HbA1c: 7.7%, 07/19/2024 Random Glucose- 111 mg/dL, Today Analyst Required: No Accompanied by: Significant Other Allergies sitagliptin [From JANUVIA] Allergy (Unknown, Verified 07/10/24 14:10) vomitting dulaglutide [From Trulicity] Adverse Reaction (Intermediate, Verified 07/10/24 14:10) Rash pioglitazone [From Actos] Adverse Reaction (Intermediate, Verified 07/10/24 14:10) palpatations HPI Comments Details: 74 year old male with a past medical history of type 2 diabetes presenting for follow up Medical hx: PAD, hypertension, hyperlipidemia, OA Initially diagnosed with T2DM >10 years. A1C today last visit 9.6% Current regimen:On metformin 1000 mg BID, ozempic 0.5mg weekly and lantus 14 units. Added some afternoon glipizide because all hyperglycemia was 6-10pm and he wanted to avoid short acting insulin. Minimal improvement with hyperglycemia at that time. Will stop the glipizide and increase lantus as there is no hypoglycemia and he still wants to avoid dinnertime insulin. Discussed we may have to pursue this anyways. Intolerant meds: trulicity, januvia, actos. Previously on glimepiride Has Freestyle enrrique 2 CGM-sensor downloaded today. Last A1C 9.6%, today 7.7%. Highs are almost exclusively after dinner. Family history of T2DM in sisters have Type 2 DM and mother Sees ophtho -very overdue Sees podiatry every 3 mos Micro/macrovascular complications: PAD, osteo s/p right BKA. On KHALIDA/ARB. On statin ROS CONSTITUTIONAL: Denies weight loss, fever and chills. HEENT: Denies changes in vision and hearing. RESPIRATORY: Denies SOB and cough. CV: Denies palpitations and CP GI: Denies abdominal pain, nausea, vomiting and diarrhea. : Denies dysuria and urinary frequency. MSK: Denies new myalgia and joint pain. SKIN: Denies rash and pruritus. NEUROLOGICAL: Denies headache PSYCHIATRIC: Denies recent changes in mood. PHYSICAL EXAM: GENERAL: Alert and oriented x 3. NAD EYES: EOMI. Anicteric. HENT: Moist mucous membranes. No scleral icterus. No cervical lymphadenopathy. LUNGS: Clear to auscultation bilaterally. CARDIOVASCULAR: RRR with ectopic beats ABDOMEN: Soft, non-tender +bs EXTREMITIES: RBKA SKIN: No rashes or lesions. Warm. NEUROLOGIC: No focal neurological deficits. CN II-XII grossly intact PSYCHIATRIC: Cooperative. Appropriate mood and affect [facility] Medical History PAD (peripheral artery disease) Other and unspecified hyperlipidemia Essential hypertension Type 2 diabetes mellitus with unspecified complications Allergic rhinitis Stroke Nausea & vomiting Hospital discharge follow-up Atypical chest pain Diabetes Hyperlipidemia HTN (hypertension) Surgical History History of amputation below knee History of amputation of toe History of amputation of great toe Hx of colonoscopy Family History Father No problems noted. Mother Myocardial infarction Sister Diabetes Hypertension Social History (Updated 07/10/24 @ 14:11 by Yuli Clifford CMA) Household Members: Spouse Housing: House Do you presently have visiting nurse or other home services: No Alcohol intake: former Patient Tobacco Use Status: Never used Tobacco e-Cigarette/Vaping Use: Never Used Second Hand Smoke Exposure: No Advance Directives Date on File: 12/22/23 service: No Current occupational status: retired Cognitive needs: Yes (Wheel Chair) Hearing needs: No Vision needs: No Physical Exam Vital Signs: Last Vital Signs Pulse 86 07/19/24 10:29 BP 120/80 07/19/24 10:29 BMI result Body Mass Index 22.3 Results AMB Hemoglobin A1c AMB Hemoglobin A1c 7.7 % Last Edit by ELADIA Forrester on 07/19/24 10:43 Results Reviewed Results Reviewed: Laboratory Last Values Glucose (Clinic) 111 mg/dL (60-115) 07/19/24 10:30 Hgb A1c (Clinic) 7.7 % (4.0-6.0) H 07/19/24 10:19 Assessment & Plan Assessment & Plan (1) Type 2 diabetes mellitus with unspecified complications: Code(s): E11.8 - Type 2 diabetes mellitus with unspecified complications Category: Medical Plan: Congratulated on overall improved glycemic control. Still having signficant hyperglycemia from 6-10 pm is trying to avoid dinnertime insulin. No hypoglyce salina. Increase lantus to 18 units, advised to decrease carbs with dinner. He will return in four weeks Orders: Orders AMB Hemoglobin A1c Today E11.8 - Type 2 diabetes mellitus with unspecified complications Medications: Changed From Lantus Solostar U-100 Insulin (insulin glargine) 14 units (0.14 mL) subcut QAM 90 days 12.6 mL 3RF NS E11.8 - Type 2 diabetes mellitus with unspecified complications To Lantus Solostar U-100 Insulin (insulin glargine) 18 units (0.18 mL) subcut QAM 90 days 16.2 mL 3RF NS E11.8 - Type 2 diabetes mellitus with unspecified complications Refilled FreeStyle Enrrique 2 Sensor (flash glucose sensor) As directed 6 ea 3RF NS E11.8 - Type 2 diabetes mellitus with unspecified complications Discontinued glipizide 30 minutes prior to dinner Discontinued Reason: Doctor's Order 5 mg PO DAILY 90 tabs 3RF E11.8 - Type 2 diabetes mellitus with unspecified complications Coding Level of Care Code Est Pt Level 4 (84118) Diagnoses Type 2 diabetes mellitus with unspecified complications E11.8
[2024-07-19 10:29] VITALS: BP 120/80; PULSE 86; BMI 22.3
[2024-07-19 10:34] LABS: Glucose, Whole Blood 111 mg/dL (60-115)
== END 2024-07-19 11:01 | disposition home or self-care (01) ==
LOC: HO.ENCR 10:11
PROVIDERS: PCP Physician Assistant; Visit Provider Internal Medicine
DX: E11.8 Type 2 diabetes mellitus with unspecified complications (principal)

== ENCOUNTER → 2024-07-19 10:10 | Outpatient (BNVA) | payer MEDICARE, SELFPAY | PROVIDERS: PCP Physician Assistant; Visit Provider Internal Medicine | DX: E11.8 Type 2 diabetes mellitus with unspecified complications (principal); Z79.84 Long term (current) use of oral hypoglycemic drugs; Z83.3 Family history of diabetes mellitus | CPT/HCPCS: 82947; 83036; 99212 ==

== ENCOUNTER 2024-07-26 09:45 | Outpatient (AMB) | payer MEDICARE, SELFPAY ==
[2024-07-26 09:52] VITALS: BP 110/66; PULSE 83; BMI 22.3
--- NOTE | 2024-07-26 09:52 | MHC.OFFVIS ---
Vital Signs 07/26/24 09:52 Height 5 ft 11 in Weight 160 lb BMI 22.3 BP 110/66 Blood Pressure Location Lt brachial Position Sitting Pulse 83 Pulse Source Pulse Oximeter Intake Visit Reasons: 1 year fu Tuyere Fitter Required: No Accompanied by: Spouse Allergies sitagliptin [From JANUVIA] Allergy (Unknown, Verified 07/10/24 14:10) vomitting dulaglutide [From Trulicity] Adverse Reaction (Intermediate, Verified 07/10/24 14:10) Rash pioglitazone [From Actos] Adverse Reaction (Intermediate, Verified 07/10/24 14:10) palpatations Medication List - Last Reconciled 07/26/24 by Magnus Thomas MD acetaminophen (Tylenol Extra Strength) 500 mg PO Q6H PRN amlodipine 10 mg PO DAILY aspirin 81 mg PO DAILY 90 days atorvastatin 10 mg PO DAILY 90 days blood-glucose meter (FreeStyle Lite Meter kit) As directed tests 4 X/day blood-glucose sensor (adicate timeads G7 Sensor device) As directed change every 10 days chair, wheel (Wheel chair) As directed FreeStyle Enrrique 2 [place] (flash glucose scanning reader) As directed NS FreeStyle Enrrique 2 Sensor (flash glucose sensor) As directed NS FreeStyle Lite Strips (blood sugar diagnostic) As directed tests 4 X/day NS Lantus Solostar U-100 Insulin (insulin glargine) 18 units (0.18 mL) subcut QAM 90 days NS lisinopril 10 mg PO DAILY 90 days metformin 1,000 mg PO BID 90 days pen needle, diabetic (BD Ultra-Fine Sarah Pen Needle) As directed semaglutide 0.5 mg (0.736 mL) subcut QWEEK 4 weeks walker Folding Front wheeled walker walker Folding Front wheeled walker HPI Comments Details: Rivera returns for follow-up. No known coronary disease, but he has multiple vascular risk factors. Has poorly controlled diabetes, hypertension, dyslipidemia. Has peripheral vascular disease. It seems, he underwent right below-knee amputation from diabetic complications. Otherwise, from cardiac he does not have any concerning symptoms. Comes in a wheelchair. [facility] Medical History PAD (peripheral artery disease) Other and unspecified hyperlipidemia Essential hypertension Type 2 diabetes mellitus with unspecified complications Allergic rhinitis Stroke Nausea & vomiting Hospital discharge follow-up Atypical chest pain Diabetes Hyperlipidemia HTN (hypertension) Surgical History History of amputation below knee History of amputation of toe History of amputation of great toe Hx of colonoscopy Family History Father No problems noted. Mother Myocardial infarction Sister Diabetes Hypertension Social History Household Members: Spouse Housing: House Do you presently have visiting nurse or other home services: No Alcohol intake: former Patient Tobacco Use Status: Never used Tobacco e-Cigarette/Vaping Use: Never Used Second Hand Smoke Exposure: No Advance Directives Date on File: 12/22/23 service: No Current occupational status: retired Cognitive needs: Yes (Wheel Chair) Hearing needs: No Vision needs: No Review of Systems Const All systems reviewed & are unremarkable except as noted in HPI and below Reports as per HPI and Reports no additional complaints Eyes Reports as per HPI and Denies no additional complaints ENT Denies no additional complaints and Reports as per HPI Card Reports as per HPI, Reports no additional complaints, Denies acrocyanosis, Denies chest pain, Denies leg edema, Denies lightheadedness, Denies palpitations and Denies dyspnea Resp Reports as per HPI, Denies no additional complaints and Denies dyspnea GI Reports as per HPI and Denies no additional complaints Reports no additional complaints and Reports as per HPI Musc Reports no additional complaints and Reports as per HPI Skin/Breast Reports system reviewed and no additional complaints, except as documented Neuro Reports no additional complaints and Reports as per HPI Psych Reports no additional complaints and Reports as per HPI Endo Reports no additional complaints, Reports as per HPI and Denies palpitations Ankit/Lymph Reports no additional complaints and Reports as per HPI Aller/Immun Reports no additional complaints and Reports as per HPI Physical Exam Vital Signs: Last Vital Signs Pulse 83 07/26/24 09:52 BP 110/66 07/26/24 09:52 BMI result Body Mass Index 22.3 Const General: comfortable and no acute distress Orientation/consciousness: patient oriented x3 HEENT Other: Unremarkable Head: Yes normal to inspection Neck Neck: Yes normal visual inspection Chest Chest palpation & inspection: normal inspection of the chest Resp Auscultation: clear to auscultation bilaterally Cardio Palpation: normal PMI Heart sounds: S1 normal heart sound present, S2 normal heart sound present, no gallops, Murmur heart sound present systolic II/ and at the right sternal border and no rubs GI Palpation (GI): Soft to palpation Back/Spine/Pelvis Other: unremarkable Skin General skin exam: no rashes or lesions noted Neuro General: patient oriented x3 Extrem Other: Right below-knee amputation Psych Mental Status: mental status grossly normal Assessment & Plan Assessment & Plan (1) Aortic valve sclerosis: Code(s): I35.8 - Other nonrheumatic aortic valve disorders Category: Medical (2) Atrial arrhythmia: Code(s): I49.8 - Other specified cardiac arrhythmias Category: Medical (3) Type 2 diabetes mellitus with unspecified complications: Code(s): E11.8 - Type 2 diabetes mellitus with unspecified complications Category: Medical (4) Essential hypertension: Code(s): I10 - Essential (primary) hypertension Category: Medical (5) Other and unspecified hyperlipidemia: Code(s): E78.5 - Hyperlipidemia, unspecified Category: Medical (6) PAD (peripheral artery disease): Code(s): I73.9 - Peripheral vascular disease, unspecified Category: Medical Plan Cardiac studies reviewed. Echocardiogram shows LVEF of 65-70%. Moderate aortic valve calcification and mild mitral annular calcification. In the stress test, able to exercise for 5.3 Mets. No angina. Reach target heart rate. Normal blood pressure response. No EKG evidence of ischemia. Perfusion imaging unremarkable. Overall, multiple cardiovascular risk factors but no obstructive CAD based on above testing. Has vascular disease. Due to aortic valve sclerosis on the echocardiogram, there is an increased risk of aortic stenosis in the future. We can repeat echocardiogram for that in 3 years or so. Due to frequent supraventricular ectopy, there is increased risk of atrial fibrillation in the future. Otherwise, aggressive risk factor modification and optimal control of diabetes, hypertension, dyslipidemia. Follow-up 1 year. In the interim, to call with concerns. Coding Level of Care Code Est Pt Level 4 (49232) Diagnoses Aortic valve sclerosis I35.8 Atrial arrhythmia I49.8 Type 2 diabetes mellitus with unspecified complications E11.8 Essential hypertension I10 Other and unspecified hyperlipidemia E78.5 PAD (peripheral artery disease) I73.9
== END 2024-07-26 10:07 | disposition home or self-care (01) ==
PROVIDERS: PCP Physician Assistant; Visit Provider Internal Medicine
DX: I35.8 Other nonrheumatic aortic valve disorders (principal); I49.8 Other specified cardiac arrhythmias; E11.8 Type 2 diabetes mellitus with unspecified complications; I10 Essential (primary) hypertension; E78.5 Hyperlipidemia, unspecified; I73.9 Peripheral vascular disease, unspecified
CPT/HCPCS: 99214

== ENCOUNTER → 2024-07-26 09:45 | Outpatient (BNVA) | payer MEDICARE, SELFPAY | PROVIDERS: PCP Physician Assistant; Visit Provider Internal Medicine | DX: I10 Essential (primary) hypertension (principal); I35.8 Other nonrheumatic aortic valve disorders; I49.8 Other specified cardiac arrhythmias; I73.9 Peripheral vascular disease, unspecified; E78.5 Hyperlipidemia, unspecified; E11.8 Type 2 diabetes mellitus with unspecified complications | CPT/HCPCS: 99212 ==

== ENCOUNTER 2024-08-01 06:30 | Outpatient (REF) | payer MEDICARE, SELFPAY ==
[2024-08-01 07:23] LABS: Hematocrit 34.5 % (42.0-52.0); Hemoglobin 11.4 g/dl (14.0-18.0); Mean Corpuscular Volume 90.8 fL (80.0-98.0); Mean Platelet Volume 9.7 fL (9.4-12.4); Platelet Count 251 X10*3/uL (160-400); Red Cell Distribution Width 12.9 % (11.0-16.0); White Blood Count 3.9 X10*3/uL (4.8-10.8)
[2024-08-01 07:53] LABS: Alanine Aminotransferase 20 U/L (0-40); Albumin Level 4.3 g/dL (3.5-5.0); Alkaline Phosphatase 62 U/L (39-117); Anion Gap 14 (12-20); Aspartate Amino Transferase 16 U/L (5-37); Bilirubin Total 0.2 mg/dL (0.0-1.0); Blood Urea Nitrogen 16 mg/dL (9-16); Calcium 9.7 mg/dL (8.4-10.2); Carbon Dioxide 29 mmol/L (22-29); Chloride 101 mmol/L (96-108); Cholesterol 138 mg/dL (<200); Estimated Glomerular Filt Rate > 60; Glucose Fasting 135 mg/dL (60-99); HDL Cholesterol 39 mg/dL (>40); LDL Cholesterol Calculated 82 mg/dL (<100); Potassium 4.7 mmol/L (3.3-5.1); Sodium 139 mmol/L (135-145); Total Protein 7.9 g/dL (6.5-8.0); Triglycerides 85 mg/dL (<150)
[2024-08-01 08:11] LABS: Prostate Specific Antigen Scr 4.49 ng/mL (<0.05-4.0)
[2024-08-01 09:31] LABS: Creatinine Urine 73.84 mg/dL; Microalbum/Creatinine Ratio Ur 60.9 ug/mg cr (<30)
== END 2024-08-01 06:31 | disposition home or self-care (01) ==
LOC: HO.LAB 06:30
PROVIDERS: PCP Physician Assistant; Visit Provider Physician Assistant
DX: I10 Essential (primary) hypertension (principal); E11.8 Type 2 diabetes mellitus with unspecified complications; Z12.5 Encounter for screening for malignant neoplasm of prostate
CPT/HCPCS: 36415; 80053; 80061; 82043; 82570; 84153; 85027

== ENCOUNTER 2024-08-02 10:43 | Outpatient (AMB) | payer MEDICARE, SELFPAY ==
[2024-08-02 11:14] VITALS: BP 122/58; PULSE 106; O2SAT 97; BMI 22.3
--- NOTE | 2024-08-02 11:14 | MHC.PC.OV ---
Vital Signs 08/02/24 11:14 Height 5 ft 11 in Weight 160 lb BMI 22.3 BP 122/58 L Blood Pressure Location Lt brachial Position Sitting Pulse 106 H Pulse Source Pulse Oximeter Pulse Oximetry (%) 97 Oxygen Delivery Method Room Air Intake Visit Reasons: 3 month follow up Rn Pool Required: No Accompanied by: Significant Other Allergies sitagliptin [From JANUVIA] Allergy (Unknown, Verified 08/02/24 11:25) vomitting dulaglutide [From Trulicity] Adverse Reaction (Intermediate, Verified 08/02/24 11:25) Rash pioglitazone [From Actos] Adverse Reaction (Intermediate, Verified 08/02/24 11:25) palpatations Medication List - Last Reconciled 08/02/24 by Vikash Pompa PA-C acetaminophen (Tylenol Extra Strength) 500 mg PO Q6H PRN amlodipine 10 mg PO DAILY aspirin 81 mg PO DAILY 90 days atorvastatin 10 mg PO DAILY 90 days blood-glucose meter (FreeStyle Lite Meter kit) As directed tests 4 X/day blood-glucose sensor ([employer] G7 Sensor device) As directed change every 10 days chair, wheel (Wheel chair) As directed FreeStyle Enrrique 2 [place] (flash glucose scanning reader) As directed NS FreeStyle Enrrique 2 Sensor (flash glucose sensor) As directed NS FreeStyle Lite Strips (blood sugar diagnostic) As directed tests 4 X/day NS Lantus Solostar U-100 Insulin (insulin glargine) 18 units (0.18 mL) subcut QAM 90 days NS lisinopril 10 mg PO DAILY 90 days metformin 1,000 mg PO BID 90 days pen needle, diabetic (BD Ultra-Fine Sarah Pen Needle) As directed semaglutide 0.5 mg (0.736 mL) subcut QWEEK 4 weeks walker Folding Front wheeled walker walker Folding Front wheeled walker Tobacco use date assessed: 04/06/24 Fall risk assessment: No Falls in past year Last assessed Fall Risk: 08/02/24 Dental Screening Dental Screen Date: 11/09/23 HPI 3 month follow up HPI Details Patient is a 74 year male here today for a follow-up visit. . He is due for left knee total replacement this month. Patient has a past medical history significant for hypertension, uncontrolled diabetes, hyperlipidemia. . Hypertension: Patient's blood pressure acceptable today in office. Continues with lisinopril 10 mg daily with good effect. . 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 Now followed by endocrinology. He continues with Ozempic 0.5 mg weekly and Lantus 18 units daily. He reports his sugars are much better control. Does also have a continues glucose monitor which helps him make better choices Most recent A1c 7.7 Patient does have microalbuminuria that seems to have been improving since he has been getting better control over his type 2 diabetes. .. Hyperlipidemia: Patient continues with statin therapy without side effect. Most recent lipid panel showing excellent control of his total cholesterol and LDL. Goal LDL to remain below 100. Laboratory Tests 09/14/23 11/07/23 03/25/24 09:37 07:08 18:28 RBC 4.39 L D Hgb 12.8 L D Creatinine Fasting Glucose Hgb A1c (Clinic) 8.9 H Hemoglobin A1c % 8.1 H LDL Cholesterol, C alc PSA Screen Urine Microalbumin 04/18/24 07/19/24 08/01/24 11:12 10:19 06:44 RBC 3.80 L Hgb 11.4 L Creatinine 0.76 Fasting Glucose 135 H Hgb A1c (Clinic) 9.6 H 7.7 H Hemoglobin A1c % LDL Cholesterol, C alc 82 PSA Screen 4.49 H Urine Microalbumin 08/01/24 07:53 RBC Hgb Creatinine Fasting Glucose Hgb A1c (Clinic) Hemoglobin A1c % LDL Cholesterol, C alc PSA Screen Urine Microalbumin 45.0 [facility] Medical History PAD (peripheral artery disease) Other and unspecified hyperlipidemia Essential hypertension Type 2 diabetes mellitus with unspecified complications Allergic rhinitis Stroke Nausea & vomiting Hospital discharge follow-up Atypical chest pain Diabetes Hyperlipidemia HTN (hypertension) Surgical History History of amputation below knee History of amputation of toe History of amputation of great toe Hx of colonoscopy Family History Father No problems noted. Mother Myocardial infarction Sister Diabetes Hypertension Social History Household Members: Spouse Housing: House Do you presently have visiting nurse or other home services: No Alcohol intake: former Patient Tobacco Use Status: Never used Tobacco e-Cigarette/Vaping Use: Never Used Second Hand Smoke Exposure: No Advance Directives Date on File: 12/22/23 service: No Current occupational status: retired Cognitive needs: Yes (Wheel Chair) Hearing needs: No Vision needs: No Questionnaire Thrive Questionnaire Date Thrive assessed: 01/17/24 VICTOR HUGO-7 AMB Questionnaire VICTOR HUGO-7 Date VICTOR HUGO - 7 assessed: 09/14/23 Source: Developed by Drs. Peter Galdamez, Gala Esquivel, Warren Wayne and colleagues, with an educational xuan from [employer]. Review of Systems Const Denies headache(s) Eyes Denies loss of vision ENT Denies vertigo, Denies dizziness, Denies headache(s) and Denies sore throat Card Denies chest pain, Denies leg edema and Denies lightheadedness Resp Denies cough, Denies hemoptysis and Denies wheezing GI Denies abdominal pain, Denies melena, Denies constipation, Denies diarrhea and Denies vomiting Denies dysuria, Denies urinary frequency and Denies urinary urgency Musc Denies arthralgias, Denies joint swelling, Denies numbness and Denies tingling Neuro Denies Abnormal speech present, Denies behavioral changes, Denies vertigo, Denies dizziness, Denies headache(s), Denies loss of vision, Denies memory loss, Denies numbness and Denies tingling Psych Denies anxiety, Denies behavioral changes, Denies depression, Denies memory loss and Denies panic attacks Ankit/Lymph Denies easy bleeding and Denies easy bruising Aller/Immun Denies wheezing Physical exam (Primary Care) Vital Signs: Last Vital Signs Pulse 106 H 08/02/24 11:14 BP 122/58 L 08/02/24 11:14 Pulse Ox 97 08/02/24 11:14 Oxygen Delivery Method Room Air 08/02/24 11:14 BMI result Body Mass Index 22.3 Tobacco/Smoking Status: Tobacco use Status Tobacco use date assessed 04/06/24 08/02/24 11:15 Patient Tobacco Use Status Never used Tobacco 08/02/24 11:15 e-Cigarette/Vaping Use Never Used 08/02/24 11:15 Thrive Assessment: Date of Thrive Assessment Date Thrive assessed 01/17/24 08/02/24 11:15 Const General: healthy appearing, no acute distress, alert and awake Nutritional Appearance: well nourished Orientation/consciousness: oriented to person, oriented to place and oriented to time HENMT Ears: TM's normal bilaterally General nose exam: Normal nasal mucous membranes and turbinates present Eyes Conjunctivae: conjunctivae normal Sclerae: sclerae normal Pupils: Equal, round and reactive pupils present Neck Neck: Yes no lymphadenopathy and Yes no JVD Thyroid: Thyroid normal Carotids: no bruits Resp Effort & Inspection: normal respiratory effort and not tachypneic Auscultation: no crackles, no rales, no rhonchi and no wheezes Cardio Rate: regular rate Rhythm: regular rhythm Heart sounds: no murmurs and normal S1 and S2 GI Palpation (GI): Soft to palpation, nontender, no hepatomegaly and no splenomegaly Auscultation: normal bowel sounds Skin General skin exam: no rashes or lesions noted and dry skin Neuro General: oriented to person, oriented to place and oriented to time Cranial nerves: Yes Equal, round and reactive pupils present Speech: No Abnormal speech present Gait exam (Neuro): Normal gait present Motor exam (neuro): no tremor noted Extrem Other: RIGHT LOWER EXTREMITY: NOTED RIGHT BELOW-KNEE AMPUTATION Right upper extremity: full ROM Left upper extremity: full ROM Right lower extremity: full ROM; no edema Left lower extremity: full ROM; no edema Psych Mental Status: mental status grossly normal Speech and movement: Normal speech and movement present Affect: normal affect Attitude: cooperative Thought process: Normal thought process present Office Procedures Flu Questionnaire Does the patient have a severe egg allergy?: No Does the patient have severe life threatening allergies?: No Does the patient have a fever or illness today?: No Has the patient ever had Guillain-Avis Syndrome?: No Has the patient ever had any past reaction to a flu shot?: No Immunizations Fluarix Triv 2110-7997 (PF) 45 mcg (15 mcg x 3)/0.5 mL IM syringe Performing Provider: Vikash Pompa PA-C [facility] [place] Administered by: EDMUND Ring on 08/02/24 11:24 Dose Route Admin Location Dispensed Lot Number Expiration Date [facility] Patient Scheduling Coordinator 0.5 mL IM Right Deltoid 0.5 mL [id number] 03/11/25 [id number] [address]/LBR VIS Given Date VIS Provided VIS Publication Date 08/02/24 Single Vaccine 21 Eligibility Eligibility Date Funding Source Not [facility] Eligible 08/02/24 Private Coding Level of Care Code Est Pt Level 4 (72353) Diagnoses Type 2 diabetes mellitus with unspecified complications E11.8 Elevated PSA R97.20 Essential hypertension I10 Hypertension type: essential hypertension Status post below-knee amputation of right lower extremity Z89.511 Laterality: right Microalbuminuria due to type 2 diabetes mellitus E11.29; R80.9 Assessment & Plan Assessment & Plan (1) Type 2 diabetes mellitus with unspecified complications: Code(s): E11.8 - Type 2 diabetes mellitus with unspecified complications Category: Medical Plan: Patient's type 2 diabetes suboptimally controlled. He continues with Ozempic 0.5 mg weekly and metformin 1000 b.i.d. and Lantus 18 units. He has been making better strides with his diabetic diet. Will continue his current regime and recheck A1c in 3 months. A1c goal to be below 7.0 (2) Elevated PSA: Code(s): R97.20 - Elevated prostate specific antigen [PSA] Category: Medical Plan: Patient's most recent PSA elevated. He does report having nocturia. Will supply patient with tamsulosin to use. Will recheck PSA in 6 months and if still elevated will consider Urology evaluation. (3) HTN (hypertension): Code(s): I10 - Essential (primary) hypertension Category: Medical Qualifiers: Hypertension type: essential hypertension Qualified Code(s): I10 - Essential (primary) hypertension Plan: Patient's blood pressure acceptable today in office , will continue current dose of antihypertensive medication. Goal blood pressures to be below 140/90 (4) S/P BKA (below knee amputation): Code(s): Z89.519 - Acquired absence of unspecified leg below knee Category: Surgical Qualifiers: Laterality: right Qualified Code(s): Z89.511 - Acquired absence of right leg below knee Plan: Patient continues to work on physical therapy at home. Does have a prosthetic right lower leg to which he uses at home. (5) Microalbuminuria due to type 2 diabetes mellitus: Code(s): E11.29 - Type 2 diabetes mellitus with other diabetic kidney complication; R80.9 - Proteinuria, unspecified Category: Medical Plan: Noted improved microalbuminuria. Orders: Orders Influenza [id number] Immunization Today Z23 - Encounter for immunization Prostate Specific Antigen Scr 6 Months R97.20 - Elevated prostate specific antigen [PSA], Z12.5 - Encounter for screening for malignant neoplasm of prostate Comprehensive [place]. Panel Fast Today E11.8 - Type 2 diabetes mellitus with unspecified complications Complete Blood Count no Diff Today E11.8 - Type 2 diabetes mellitus with unspecified complications Lipid Panel Today E11.8 - Type 2 diabetes mellitus with unspecified complications Microalbumin, Random (w Creat) Today E11.8 - Type 2 diabetes mellitus with unspecified complications Medications: New tamsulosin 0.4 mg PO BEDTIME 90 caps 1RF R97.20 - Elevated prostate specific antigen [PSA] Refilled semaglutide 0.5 mg (0.736 mL) subcut QWEEK 2.944 mL 0RF 4 weeks Patient Instructions: Goal: A1c to be below 7.0, LDL to remain below 100 Barriers: Adherence to physical activity and healthy eating habits
== END 2024-08-02 11:42 | disposition home or self-care (01) ==
PROVIDERS: PCP Physician Assistant; Visit Provider Physician Assistant
DX: E11.8 Type 2 diabetes mellitus with unspecified complications (principal); E11.29 Type 2 diabetes mellitus with other diabetic kidney complication; Z89.511 Acquired absence of right leg below knee; R97.20 Elevated prostate specific antigen [PSA]; I10 Essential (primary) hypertension; R80.9 Proteinuria, unspecified

== ENCOUNTER → 2024-08-02 10:43 | Outpatient (BNVA) | payer MEDICARE, SELFPAY | PROVIDERS: PCP Physician Assistant; Visit Provider Physician Assistant | DX: Z23 Encounter for immunization (principal); E11.29 Type 2 diabetes mellitus with other diabetic kidney complication; R97.20 Elevated prostate specific antigen [PSA]; I10 Essential (primary) hypertension; R80.9 Proteinuria, unspecified; Z89.511 Acquired absence of right leg below knee | CPT/HCPCS: 90471; 90656; 99212 ==

== ENCOUNTER 2024-08-22 10:05 | Outpatient (AMB) | payer MEDICARE, SELFPAY ==
--- NOTE | 2024-08-22 09:59 | A.OFFVIS_ITS ---
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 Project Manager Most recent HbA1c: 7.7%, 07/19/2024 Random Glucose- 135 mg/dL, Today Stained Glass Artist Required: No Accompanied by: Significant Other Allergies sitagliptin [From JANUVIA] Allergy (Unknown, Verified 08/02/24 11:25) vomitting dulaglutide [From Trulicity] Adverse Reaction (Intermediate, Verified 08/02/24 11:25) Rash pioglitazone [From Actos] Adverse Reaction (Intermediate, Verified 08/02/24 11:25) palpatations HPI Comments Details: 74 year old male with a past medical history of type 2 diabetes presenting for follow up Medical hx: PAD, hypertension, hyperlipidemia, OA Initially diagnosed with T2DM >10 years. A1C today last visit 9.6% Current regimen:On metformin 1000 mg BID, ozempic 0.5mg weekly and lantus 18 (increased from 14) units. Intolerant meds: trulicity, januvia, actos. Previously on glimepiride Has Invrep manuela 2 CGM-sensor downloaded today-GMI 8.1% TGT 44% high 56%. 07/19/2024 7.7% from 9.6%. Highs are almost exclusively after dinner. Family history of T2DM in sisters have Type 2 DM and mother Sees ophtho - Sees podiatry every 3 mos Micro/macrovascular complications: PAD, osteo s/p right BKA. On KHALIDA/ARB. On statin ROS CONSTITUTIONAL: Denies weight loss, fever and chills. HEENT: Denies changes in vision and hearing. RESPIRATORY: Denies SOB and cough. CV: Denies palpitations and CP GI: Denies abdominal pain, nausea, vomiting and diarrhea. : Denies dysuria and urinary frequency. MSK: Denies new myalgia and joint pain. SKIN: Denies rash and pruritus. NEUROLOGICAL: Denies headache PSYCHIATRIC: Denies recent changes in mood. PHYSICAL EXAM: GENERAL: Alert and oriented x 3. NAD EYES: EOMI. Anicteric. HENT: Moist mucous membranes. No scleral icterus. No cervical lymphadenopathy. LUNGS: Clear to auscultation bilaterally. CARDIOVASCULAR: RRR with ectopic beats ABDOMEN: Soft, non-tender +bs EXTREMITIES: RBKA SKIN: No rashes or lesions. Warm. NEUROLOGIC: No focal neurological deficits. CN II-XII grossly intact PSYCHIATRIC: Cooperative. Appropriate mood and affect [facility] Medical History PAD (peripheral artery disease) Other and unspecified hyperlipidemia Essential hypertension Type 2 diabetes mellitus with unspecified complications Allergic rhinitis Stroke Nausea & vomiting Hospital discharge follow-up Atypical chest pain Diabetes Hyperlipidemia HTN (hypertension) Surgical History History of amputation below knee History of amputation of toe History of amputation of great toe Hx of colonoscopy Family History Father No problems noted. Mother Myocardial infarction Sister Diabetes Hypertension Social History Household Members: Spouse Housing: House Do you presently have visiting nurse or other home services: No Alcohol intake: former Patient Tobacco Use Status: Never used Tobacco e-Cigarette/Vaping Use: Never Used Second Hand Smoke Exposure: No Advance Directives Date on File: 12/22/23 service: No Current occupational status: retired Cognitive needs: Yes (Wheel Chair) Hearing needs: No Vision needs: No Physical Exam Vital Signs: Last Vital Signs Pulse 90 08/22/24 10:13 BP 128/76 08/22/24 10:13 BMI result Body Mass Index 25.2 Results Reviewed Results Reviewed: Laboratory Last Values Glucose (Clinic) 135 mg/dL (60-115) H 08/22/24 10:17 Assessment & Plan Assessment & Plan (1) Type 2 diabetes mellitus with unspecified complications: Code(s): E11.8 - Type 2 diabetes mellitus with unspecified complications Category: Medical Plan: Suboptimal glycemic control, though still congratulated on overall improvement After much discussion he is agreeable to starting a small humalog dose prior to dinner No other medication changes today Medications: New Humalog KwikPen Insulin (insulin lispro) 15 minutes prior to dinner 6 units (0.06 mL) subcut .once daily 15 mL 3RF NS E11.8 - Type 2 diabetes mellitus with unspecified complications Coding Level of Care Code Est Pt Level 4 (17933) Diagnoses Type 2 diabetes mellitus with unspecified complications E11.8
[2024-08-22 10:13] VITALS: BP 128/76; PULSE 90; BMI 25.2
[2024-08-22 10:23] LABS: Glucose, Whole Blood 135 mg/dL (60-115)
== END 2024-08-22 10:43 | disposition home or self-care (01) ==
PROVIDERS: PCP Physician Assistant; Visit Provider Internal Medicine
DX: E11.8 Type 2 diabetes mellitus with unspecified complications (principal)

== ENCOUNTER → 2024-08-22 10:05 | Outpatient (BNVA) | payer MEDICARE, SELFPAY | PROVIDERS: PCP Physician Assistant; Visit Provider Internal Medicine | DX: E11.8 Type 2 diabetes mellitus with unspecified complications (principal); Z83.3 Family history of diabetes mellitus; Z79.84 Long term (current) use of oral hypoglycemic drugs; Z79.4 Long term (current) use of insulin | CPT/HCPCS: 82947; 99212 ==

== ENCOUNTER 2024-09-20 09:29 | Outpatient (AMB) | payer MEDICARE, SELFPAY ==
[2024-09-20 09:41] VITALS: BP 132/78; PULSE 74; BMI 26.1
--- NOTE | 2024-09-20 09:41 | A.OFFVIS_ITS ---
Vital Signs 09/20/24 09:41 Height 5 ft 11 in Weight 187 lb 6.287 oz BMI 26.1 BP 132/78 Blood Pressure Location Rt brachial Position Sitting Pulse 74 Pulse Source Pulse Oximeter Intake Visit Reasons: f/u med changes/Confirmed Intake Note: Patient presents today for a follow-up for Type 2 Diabetes Mellitus: Last Diabetic Eye exam: OVER DUE Last Podiatry Exam: Does not see a Fixed Route Bus Operator Most recent HbA1c: 7.7%, 07/19/2024 Random Glucose- 214 mg/dL, Today Special Effects Technician Required: No Accompanied by: Significant Other Allergies sitagliptin [From JANUVIA] Allergy (Unknown, Verified 09/20/24 09:44) vomitting dulaglutide [From Trulicity] Adverse Reaction (Intermediate, Verified 09/20/24 09:44) Rash pioglitazone [From Actos] Adverse Reaction (Intermediate, Verified 09/20/24 09:44) palpatations HPI Comments Details: 74 year old male with a past medical history of type 2 diabetes presenting for follow up Medical hx: PAD, hypertension, hyperlipidemia, OA Initially diagnosed with T2DM >10 years. A1C today last visit 9.6% Current regimen:On metformin 1000 mg BID, ozempic 0.5mg weekly, lantus 18 (increased from 14) units, lispro 6units with dinner (added last visit Intolerant meds: trulicity, januvia, actos. Previously on glimepiride Has [employer] manuela 2 CGM-sensors have not been working. Placed new sensor forget reader. CGM download from August-GMI 8.1% TGT 44% high 56%. 07/19/2024 7.7% from 9.6%. Highs are almost exclusively after dinner. Family history of T2DM in sisters have Type 2 DM and mother Sees ophtho - Sees podiatry every 3 mos Micro/macrovascular complications: PAD, osteo s/p right BKA. On KHALIDA/ARB. On statin ROS CONSTITUTIONAL: Denies weight loss, fever and chills. HEENT: Denies changes in vision and hearing. RESPIRATORY: Denies SOB and cough. CV: Denies palpitations and CP GI: Denies abdominal pain, nausea, vomiting and diarrhea. : Denies dysuria and urinary frequency. MSK: Denies new myalgia and joint pain. SKIN: Denies rash and pruritus. NEUROLOGICAL: Denies headache PSYCHIATRIC: Denies recent changes in mood. PHYSICAL EXAM: GENERAL: Alert and oriented x 3. NAD EYES: EOMI. Anicteric. HENT: Moist mucous membranes. No scleral icterus. No cervical lymphadenopathy. LUNGS: Clear to auscultation bilaterally. CARDIOVASCULAR: RRR with ectopic beats ABDOMEN: Soft, non-tender +bs EXTREMITIES: RBKA SKIN: No rashes or lesions. Warm. NEUROLOGIC: No focal neurological deficits. CN II-XII grossly intact PSYCHIATRIC: Cooperative. Appropriate mood and affect [facility] Medical History PAD (peripheral artery disease) Other and unspecified hyperlipidemia Essential hypertension Type 2 diabetes mellitus with unspecified complications Allergic rhinitis Stroke Nausea & vomiting Hospital discharge follow-up Atypical chest pain Diabetes Hyperlipidemia HTN (hypertension) Surgical History History of amputation below knee History of amputation of toe History of amputation of great toe Hx of colonoscopy Family History Father No problems noted. Mother Myocardial infarction Sister Diabetes Hypertension Social History Household Members: Spouse Housing: House Do you presently have visiting nurse or other home services: No Alcohol intake: former Patient Tobacco Use Status: Never used Tobacco e-Cigarette/Vaping Use: Never Used Second Hand Smoke Exposure: No Advance Directives Date on File: 12/22/23 service: No Current occupational status: retired Cognitive needs: Yes (Wheel Chair) Hearing needs: No Vision needs: No Physical Exam Vital Signs: BMI result Body Mass Index 26.1 Assessment & Plan Assessment & Plan (1) Insulin use (long-term) in type 2 diabetes: Code(s): E11.9 - Type 2 diabetes mellitus without complications; Z79.4 - senior living (current) use of insulin Category: Medical Qualifiers: Diabetes mellitus complication status: with hyperglycemia Qualified Code(s): E11.65 - Type 2 diabetes mellitus with hyperglycemia; 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 supervisor (current) use of insulin FreeStyle Lancets (lancets) once daily 100 ea 0RF NS E11.9 - Type 2 diabetes mellitus without complications, Z79.4 - 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 harvesting supervisor (current) use of insulin FreeStyle Lite Strips (blood sugar diagnostic) once daily 100 ea 0RF NS E11.9 - Type 2 diabetes mellitus without complications, Z79.4 - senior living (current) use of insulin Discontinued FreeStyle Manuela 2 Sensor (flash glucose sensor) Discontinued Reason: Doctor's Order As directed 6 ea 3RF NS E11.8 - Type 2 diabetes mellitus with unspecified complications blood-glucose sensor (Dexcom G7 Sensor device) Discontinued Reason: Doctor's Order As directed change every 10 days 3 ea 4RF FreeStyle Manuela 2 [place] (flash glucose scanning reader) Discontinued Reason: Doctor's Order As directed 1 ea 0RF NS E11.8 - Type 2 diabetes mellitus with unspecified complications Coding Level of Care Code Est Pt Level 4 (87121) Diagnoses Type 2 diabetes mellitus with hyperglycemia, with long-term current use of insulin E11.65; Z79.4 Diabetes mellitus complication status: with hyperglycemia
[2024-09-20 09:50] LABS: Glucose, Whole Blood 214 mg/dL (60-115)
== END 2024-09-20 09:58 | disposition home or self-care (01) ==
PROVIDERS: PCP Physician Assistant; Visit Provider Internal Medicine
DX: E11.65 Type 2 diabetes mellitus with hyperglycemia (principal); Z79.4 Long term (current) use of insulin

== ENCOUNTER → 2024-09-20 09:29 | Outpatient (BNVA) | payer MEDICARE, SELFPAY | PROVIDERS: PCP Physician Assistant; Visit Provider Internal Medicine | DX: E11.65 Type 2 diabetes mellitus with hyperglycemia (principal); Z79.4 Long term (current) use of insulin | CPT/HCPCS: 82947; 99212 ==

== ENCOUNTER 2024-09-24 08:08 | Outpatient (AMB) | payer MEDICARE, SELFPAY ==
--- NOTE | 2024-09-24 08:40 | A.OFFVIS_ITS ---
VS Expanded 09/24/24 08:54 Height 5 ft 11 in Weight 183 lb 3.266 oz BMI 25.5 Intake Visit Reasons: DM/Confirmed Allergies sitagliptin [From JANUVIA] Allergy (Unknown, Verified 09/20/24 09:44) vomitting dulaglutide [From Trulicity] Adverse Reaction (Intermediate, Verified 09/20/24 09:44) Rash pioglitazone [From Actos] Adverse Reaction (Intermediate, Verified 09/20/24 09:44) palpatations Nutrition Presentation Details: Pt presents for MNT f/u for T2DM Pt reports doing better. Pt has below the knee prostethic leg and reports participation from physical therapy Meals typically consist of 5:30 - 7am coffee and yogurt activia or farina or pancakes with sugar free syrup lunch: sand or hot dog or tuna fish sandwich or skips dinner: spaghetti/scampi or porkchops and rice/beans ,salad with vinaigrette beverages: milk,water, coffee, sometimes diet coke snacks: fruit or peanut butter crackers , reducing on pastries Did not bring glucometer today- and not wearing sensor Reports this morning BG at 139 mg/dl on Lantus (18 units) and Humalog (6 units), Metformin (1000 mg bid) as rx by MD Pt states he is not on ozempic due to its expense BS Monitoring Most Recent Diabetes Results: Microalb/Creat Ratio 60.9 ug/mg cr (<30) H 08/01/24 Cholesterol 138 mg/dL (<200) 08/01/24 HDL Cholesterol 39 mg/dL (>40) L 08/01/24 Triglycerides 85 mg/dL (<150) 08/01/24 Creatinine 0.76 mg/dL (0.5-1.4) 08/01/24 Blood Urea Nitrogen 16 mg/dL (9-16) 08/01/24 Sodium 139 mmol/L (135-145) 08/01/24 Potassium 4.7 mmol/L (3.3-5.1) 08/01/24 Chloride 101 mmol/L (96-108) 08/01/24 Carbon Dioxide 29 mmol/L (22-29) 08/01/24 Calcium 9.7 mg/dL (8.4-10.2) 08/01/24 AST 16 U/L (5-37) 08/01/24 ALT 20 U/L (0-40) 08/01/24 Total Protein 7.9 g/dL (6.5-8.0) 08/01/24 Albumin 4.3 g/dL (3.5-5.0) 08/01/24 [facility] Medical History PAD (peripheral artery disease) Other and unspecified hyperlipidemia Essential hypertension Type 2 diabetes mellitus with unspecified complications Allergic rhinitis Stroke Nausea & vomiting Hospital discharge follow-up Atypical chest pain Diabetes Hyperlipidemia HTN (hypertension) Surgical History History of amputation below knee History of amputation of toe History of amputation of great toe Hx of colonoscopy Family History Father No problems noted. Mother Myocardial infarction Sister Diabetes Hypertension Social History Household Members: Spouse Housing: House Do you presently have visiting nurse or other home services: No Alcohol intake: former Patient Tobacco Use Status: Never used Tobacco e-Cigarette/Vaping Use: Never Used Second Hand Smoke Exposure: No Advance Directives Date on File: 12/22/23 service: No Current occupational status: retired Cognitive needs: Yes (Wheel Chair) Hearing needs: No Vision needs: No Assessment & Plan Assessment & Plan (1) Type 2 diabetes mellitus with unspecified complications: Code(s): E11.8 - Type 2 diabetes mellitus with unspecified complications Category: Medical Plan: Importance of balancing meals by following Healthy plate method , including lean protein and fiber rich foods Used wt : 83 kg Est kcal as per 25/kg BW: 2067 (40% carb, 30% fat/prot) Est fluid needs: 2100 ml/d (25 ml/kg bw) Rec fiber: increase to 8-10 g per day and gradually increase to 35 g or as tolerated Rec Na: < 2000 mg /d Educate patient on: (R= Reviewed, V = verbalizes understanding N/R= Needs review N/A= not applicable) * Food sources of carbohydrates and serving adequate serving sizes : R , v * role of protein and fiber to maintain glucose control: R * Difference between complex carbohydrates and simple carbohydrates, role of fiber: R , v * Differences between fats (MUFA/PUFA/saturated fats, trans fats) and food sources of various fats: R * Food sources of sodium and salt and healthy modifications for heart health and kidney health: R * Vitamins and minerals: R * How to interpret food labels: R * Healthy Plate method concept: R V * Physical activity: benefits and precaution: R, V * hypoglycemia, sign , symptoms and rule of 15 to treat it: R Patient Instructions: Include fiber rich foods in the diet (spinach, green beans, asparagus, legumes, nuts ) Try lentil or hawthorne soup/salad 2 times/ a week Keep hydrated by choosing water, light lemonade, fruit/herb infused water Coding Level of Care Code Nutr Indiv Subseq (04051) Diagnoses Type 2 diabetes mellitus with unspecified complications E11.8 Time Spent (min) 30
[2024-09-24 08:54] VITALS: BMI 25.5
== END 2024-09-24 09:07 | disposition home or self-care (01) ==
PROVIDERS: PCP Physician Assistant; Visit Provider Dietitian, Registered
DX: E11.8 Type 2 diabetes mellitus with unspecified complications (principal)

== ENCOUNTER → 2024-09-24 08:08 | Outpatient (BNVA) | payer MEDICARE, SELFPAY | PROVIDERS: PCP Physician Assistant; Visit Provider Dietitian, Registered | DX: E11.8 Type 2 diabetes mellitus with unspecified complications (principal) | CPT/HCPCS: 97803 ==

== ENCOUNTER 2024-10-25 09:52 | Outpatient (AMB) | payer MEDICARE, SELFPAY ==
--- NOTE | 2024-10-25 09:53 | A.OFFVIS_ITS ---
Vital Signs 10/25/24 09:55 Height 5 ft 11 in Weight 185 lb 3.013 oz BMI 25.8 BP 126/58 L Blood Pressure Location Rt brachial Position Sitting Pulse 64 Pulse Source Pulse Oximeter Intake Visit Reasons: DM Intake Note: Patient presents today for a follow-up for Type 2 Diabetes Mellitus: Last Diabetic Eye exam: OVER DUE Last Podiatry Exam: Does not see a Stores Despatch Hand Most recent HbA1c: 8.9%, 10/25/2024 Random Glucose- 167 mg/dL, Today Relay Dispatcher Required: No Accompanied by: Significant Other Allergies sitagliptin [From JANUVIA] Allergy (Unknown, Verified 09/20/24 09:44) vomitting dulaglutide [From Trulicity] Adverse Reaction (Intermediate, Verified 09/20/24 09:44) Rash pioglitazone [From Actos] Adverse Reaction (Intermediate, Verified 09/20/24 09:44) palpatations HPI Comments Details: 74 year old male with a past medical history of type 2 diabetes presenting for follow up Medical hx: PAD, hypertension, hyperlipidemia, OA Initially diagnosed with T2DM >10 years. Current regimen:On metformin 1000 mg BID, ozempic 0.5mg weekly, lantus 18 units, lispro 6units with dinner Intolerant meds: trulicity, januvia, actos. Previously on glimepiride Has [employer] enrrique 2 CGM-sensors have not been working great. A 3+ was sent but not covered. CGM downloaded today with GMI 7.8%, high 49%, TGT 51% and no lows. Still some postprandial hyperglycemia but by morning in 70s 80s. POC today 8.95 which seems incongruent with enrrique. Last was 7.7% from 9.6%. Family history of T2DM in sisters have Type 2 DM and mother Sees ophtho - Sees podiatry every 3 mos Micro/macrovascular complications: PAD, osteo s/p right BKA. On KHALIDA/ARB. On statin ROS CONSTITUTIONAL: Denies weight loss, fever and chills. HEENT: Denies changes in vision and hearing. RESPIRATORY: Denies SOB and cough. CV: Denies palpitations and CP GI: Denies abdominal pain, nausea, vomiting and diarrhea. : Denies dysuria and urinary frequency. MSK: Denies new myalgia and joint pain. SKIN: Denies rash and pruritus. NEUROLOGICAL: Denies headache PSYCHIATRIC: Denies recent changes in mood. PHYSICAL EXAM: GENERAL: Alert and oriented x 3. NAD EYES: EOMI. Anicteric. HENT: Moist mucous membranes. No scleral icterus. No cervical lymphadenopathy. LUNGS: Clear to auscultation bilaterally. CARDIOVASCULAR: RRR with ectopic beats ABDOMEN: Soft, non-tender +bs EXTREMITIES: RBKA SKIN: No rashes or lesions. Warm. NEUROLOGIC: No focal neurological deficits. CN II-XII grossly intact PSYCHIATRIC: Cooperative. Appropriate mood and affect [facility] Medical History PAD (peripheral artery disease) Other and unspecified hyperlipidemia Essential hypertension Type 2 diabetes mellitus with unspecified complications Allergic rhinitis Stroke Nausea & vomiting Hospital discharge follow-up Atypical chest pain Diabetes Hyperlipidemia HTN (hypertension) Surgical History History of amputation below knee History of amputation of toe History of amputation of great toe Hx of colonoscopy Family History Father No problems noted. Mother Myocardial infarction Sister Diabetes Hypertension Social History Household Members: Spouse Housing: House Do you presently have visiting nurse or other home services: No Alcohol intake: former Patient Tobacco Use Status: Never used Tobacco e-Cigarette/Vaping Use: Never Used Second Hand Smoke Exposure: No Advance Directives Date on File: 12/22/23 service: No Current occupational status: retired Cognitive needs: Yes (Wheel Chair) Hearing needs: No Vision needs: No Physical Exam Vital Signs: Last Vital Signs Pulse 64 10/25/24 09:55 BP 126/58 L 10/25/24 09:55 BMI result Body Mass Index 25.8 Office Procedures Glucose Monitoring Details Details: Enrrique 2 GMI 7.8% High 49% TGT 51% Low 0% 41406 - Continuous Glucose Monitoring, patient provides equipment Procedure code (CPT) selection complete Results AMB Hemoglobin A1c AMB Hemoglobin A1c 8.9 % Last Edit by ELADIA Forrester on 10/25/24 10:15 Results Reviewed Results Reviewed: Laboratory Last Values Glucose (Clinic) 167 mg/dL (60-115) H 10/25/24 09:57 Assessment & Plan Assessment & Plan (1) Insulin use (long-term) in type 2 diabetes: Code(s): E11.9 - Type 2 diabetes mellitus without complications; Z79.4 - manager intermediate (current) use of insulin Category: Medical Qualifiers: Diabetes mellitus complication status: with hyperglycemia Qualified Code(s): E11.65 - Type 2 diabetes mellitus with hyperglycemia; Z79.4 - manager intermediate (current) use of insulin Plan: A1C surprisingly high compared with CGM readings of last two visits. Patient has been compliant with meds, diet. GMI per CGM is 7.8%. Will increase lantus slightly to 22 units. Dont want to increase lispro because he does dip in the morning He has follow up with pcp soon. I will have him go to the lab for A1C Orders: Orders Hemoglobin A1c Today E11.29 - Type 2 diabetes mellitus with other diabetic kidney complication, E11.65 - Type 2 diabetes mellitus with hyperglycemia, R80.9 - Proteinuria, unspecified, Z79.4 - custodial (current) use of insulin AMB Hemoglobin A1c Today E11.65 - Type 2 diabetes mellitus with hyperglycemia, Z79.4 - custodial (current) use of insulin Medications: Changed From Lantus Solostar U-100 Insulin (insulin glargine) 18 units (0.18 mL) subcut QAM 90 days 16.2 mL 3RF NS E11.8 - Type 2 diabetes mellitus with unspecified complications To Lantus Solostar U-100 Insulin (insulin glargine) 22 units (0.22 mL) subcut QAM 90 days 19.8 mL 3RF NS E11.8 - Type 2 diabetes mellitus with unspecified complications Coding Level of Care Code Est Pt Level 4 (57632) Diagnoses Type 2 diabetes mellitus with hyperglycemia, with long-term current use of insulin E11.65; Z79.4 Diabetes mellitus complication status: with hyperglycemia CPT Codes Details - CPT: 97708 - Continuous Glucose Monitoring, patient provides equipment ([id number])
[2024-10-25 09:55] VITALS: BP 126/58; PULSE 64; BMI 25.8
[2024-10-25 10:05] LABS: Glucose, Whole Blood 167 mg/dL (60-115)
--- OUTSIDE RECORDS SUMMARY | 2024-10-25 10:28 | XMS_ITS | Clinical Summary ---
Author Organization [employer] Address [address] [place] [address] Care Team Providers Care Laser Engraver Name Role Phone Unavailable Primary Care Provider Unavailabl e Social History Tobacco Use Types Packs/Day Years Used Date Smoking Tobacco: Never Assessed Sex and Gender Information Value Date Recorded Sex Assigned at Male 07/12/2022 10:20 AM EDT Legal Sex Male 10:20 AM EDT Gender Identity Not on file Sexual Orientation Not on file Plan of Treatment Health Maintenance Due Date Last Done Comments Depression Screening 1948 Lipid Panel 1948 Alcohol/Substance Use Screening 1960 Tobacco Screening 1960 DTaP/Tdap/Td Vaccines (1 - Tdap) 1967 Pneumococcal Vaccine: 50+ Ye ars (1 of 1 - PCV) 1998 Zoster Vaccines (1 of 2) 1998 RSV Patients and Pa tients Aged 60 years or older (1 - 1-dose 75+ series) 2023 COVID-19 Vaccine ( - 2023-2 5 season) 2024 Influenza Vaccine (#1) 2024 HIB Vaccines Aged Out No longer eligi ble based on patient's age to complete this topic HPV Vaccines Aged Out No longer eligi ble based on patient's age to complete this topic Hepatitis A Vaccines Aged Out No long er eligible based on patient's age to complete this topic Hepatitis B Vaccines Aged Out No long er eligible based on patient's age to complete this topic IPV Vaccines Aged Out No longer eligi ble based on patient's age to complete this topic Meningococcal Vaccine Aged Out No britney antonio eligible based on patient's age to complete this topic RSV under 20 months Aged Out No longe r eligible based on patient's age to complete this topic Rotavirus Vaccines Aged Out No longer eligible based on patient's age to complete this topic
--- OUTSIDE RECORDS SUMMARY | 2024-10-25 10:28 | XMS_ITS | Encounter Summary ---
Author Organization [employer] Address [address] [place] [address] Care Team Providers Care Dictating Machine Typist Name Role Phone Unavailable Primary Care Provider Unavailabl e Encounter Details Date Type Department Care Team (Latest Contact Info) Description 04/19/2019 Abstract [facility] Dental, Provider, DDS Social History Tobacco Use Types Packs/Day Years Used Date Smoking Tobacco: Never Assessed Sex and Gender Information Value Date Recorded Sex Assigned at Male 07/12/2022 10:20 AM EDT Legal Sex Male 10:20 AM EDT Gender Identity Not on file Sexual Orientation Not on file documented as of this encounter Plan of Treatment Not on file documented as of this encounter Visit Diagnoses Not on filedocumented in this encounter
== END 2024-10-25 10:26 | disposition home or self-care (01) ==
PROVIDERS: PCP Physician Assistant; Visit Provider Internal Medicine
DX: E11.65 Type 2 diabetes mellitus with hyperglycemia (principal); Z79.4 Long term (current) use of insulin

== ENCOUNTER → 2024-10-25 09:52 | Outpatient (BNVA) | payer MEDICARE, SELFPAY | PROVIDERS: PCP Physician Assistant; Visit Provider Internal Medicine | DX: E11.65 Type 2 diabetes mellitus with hyperglycemia (principal); Z79.4 Long term (current) use of insulin; Z79.84 Long term (current) use of oral hypoglycemic drugs | CPT/HCPCS: 82947; 83036; 95249; 99212 ==

== ENCOUNTER 2024-11-03 08:06 | Outpatient (REF) | payer MEDICARE, SELFPAY ==
[2024-11-03 09:13] LABS: Hematocrit 37.5 % (42.0-52.0); Hemoglobin 12.2 g/dl (14.0-18.0); Mean Corpuscular HGB Conc 32.5 g/dl (31.0-36.0); Mean Corpuscular Hemoglobin 29.5 pg (27.0-33.0); Mean Corpuscular Volume 90.8 fL (80.0-98.0); Mean Platelet Volume 9.8 fL (9.4-12.4); Platelet Count 248 X10*3/uL (160-400); Red Blood Count 4.13 X10*6/uL (4.60-5.80); Red Cell Distribution Width 12.3 % (11.0-16.0); White Blood Count 4.8 X10*3/uL (4.8-10.8)
[2024-11-03 09:21] LABS: Estimated Average Glucose 197 mg/dL; Hemoglobin A1C 219.2894 umol/L; Hemoglobin A1c % 8.5 % (<6.0); Total Hemoglobin (HGBA1C) 3167.7095 umol/L
[2024-11-03 09:36] LABS: Creatinine Urine 135.75 mg/dL; Microalbum/Creatinine Ratio Ur 49.3 ug/mg cr (<30)
[2024-11-03 10:10] LABS: Alanine Aminotransferase 21 U/L (0-40); Albumin Level 4.2 g/dL (3.5-5.0); Alkaline Phosphatase 68 U/L (39-117); Anion Gap 15 (12-20); Aspartate Amino Transferase 18 U/L (5-37); Bilirubin Total 0.4 mg/dL (0.0-1.0); Blood Urea Nitrogen 14 mg/dL (9-16); Calcium 9.7 mg/dL (8.4-10.2); Carbon Dioxide 22 mmol/L (22-29); Chloride 108 mmol/L (96-108); Cholesterol 147 mg/dL (<200); Estimated Glomerular Filt Rate > 60; Glucose Fasting 99 mg/dL (60-99); HDL Cholesterol 40 mg/dL (>40); LDL Cholesterol Calculated 89 mg/dL (<100); Potassium 4.6 mmol/L (3.3-5.1); Sodium 140 mmol/L (135-145); Total Protein 8.4 g/dL (6.5-8.0); Triglycerides 93 mg/dL (<150)
== END 2024-11-03 08:07 | disposition home or self-care (01) ==
LOC: HO.LAB 08:06
PROVIDERS: Internal Medicine; PCP Physician Assistant; Visit Provider Physician Assistant
DX: E11.65 Type 2 diabetes mellitus with hyperglycemia (principal); R80.9 Proteinuria, unspecified; E11.29 Type 2 diabetes mellitus with other diabetic kidney complication; Z79.4 Long term (current) use of insulin; E11.8 Type 2 diabetes mellitus with unspecified complications
CPT/HCPCS: 36415; 80053; 80061; 82043; 82570; 83036; 85027

== ENCOUNTER 2024-11-06 08:47 | Outpatient (AMB) | payer MEDICARE, SELFPAY ==
--- NOTE | 2024-11-06 09:08 | A.OFFPC_ITS ---
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 Required: No Accompanied by: Spouse Allergies sitagliptin [From JANUVIA] Allergy (Unknown, Verified 11/06/24 09:20) vomitting dulaglutide [From Trulicity] Adverse Reaction (Intermediate, Verified 11/06/24 09:20) Rash pioglitazone [From Actos] Adverse Reaction (Intermediate, Verified 11/06/24 09:20) palpatations Medication List - Last Reconciled 11/06/24 by Vikash Pompa PA-C acetaminophen (Tylenol Extra Strength) 500 mg PO Q6H PRN amlodipine 10 mg PO DAILY aspirin 81 mg PO DAILY 90 days atorvastatin 10 mg PO DAILY 90 days blood-glucose meter (FreeStyle Lite Meter kit) As directed tests 4 X/day chair, wheel (Wheel chair) As directed FreeStyle Lancets (lancets) once daily NS FreeStyle Enrrique 3 Plus Sensor (blood-glucose sensor) As directed NS FreeStyle Enrrique 3 [place] (blood-glucose meter,continuous) As directed NS FreeStyle Lite Strips (blood sugar diagnostic) As directed tests 4 X/day NS FreeStyle Lite Strips (blood sugar diagnostic) once daily NS Humalog KwikPen Insulin (insulin lispro) 6 units (0.06 mL) subcut .once daily NS Lantus Solostar U-100 Insulin (insulin glargine) 22 units (0.22 mL) subcut QAM 90 days NS lisinopril 10 mg PO DAILY 90 days metformin 1,000 mg PO BID 90 days pen needle, diabetic (BD Ultra-Fine Sarah Pen Needle) As directed semaglutide 0.5 mg (0.736 mL) subcut QWEEK 4 weeks tamsulosin 0.4 mg PO BEDTIME walker Folding Front wheeled walker walker Folding Front wheeled walker Tobacco use date assessed: 11/06/24 Fall risk assessment: No Falls in past year Last assessed Fall Risk: 11/06/24 Dental Screening Dental Screen Date: 11/06/24 Did you have a dental visit in the last 12 months?: No Did you have a dental problem in the last 6 months where you did not have access to dental care?: No Was dental information given to patient?: Patient has dentist HPI f/u DMII HPI Details Patient is a 74 year male here today for a follow-up visit. . He is due for left knee total replace ment this month. Patient has a past medical history significant for hypertension, uncontrolled diabetes, hyperlipidemia. . Hypertension: Patient's blood pressure acceptable today in office. Continues with lisinopril 10 mg daily with good effect. . 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 Patient has been working with physical therapy with his new right leg prosthetic.. Now followed by [facility]. Recent A1c elevated does his Lantus was increased to 22 units for better glycemic control. UNFORTUNATELY PATIENT HAS NOT BEEN ABLE TO AFFORD OZEMPIC IN HIS NOT BEEN ON THE MEDICATION FOR QUITE SOME TIME. He reports his sugars are much better control. Does also have a continues glucose monitor which helps him make better choices Most recent A1c 8.5 .. Hyperlipidemia: Patient continues with statin therapy without side effect. Most recent lipid panel showing excellent control of his total cholesterol and LDL. Goal LDL to remain below 100 Laboratory Tests 12/19/23 08/01/24 08/01/24 14:14 06:44 07:53 RBC 3.80 L Hgb 11.4 L Creatinine Fasting Glucose Hemoglobin A1c % 9.0 H Hgb A1c (Clinic) Cholesterol Urine Microalbumin 45.0 10/25/24 11/03/24 11/03/24 09:53 08:17 08:21 RBC 4.13 L Hgb 12.2 L Creatinine 0.83 Fasting Glucose 99 Hemoglobin A1c % 8.5 H Hgb A1c (Clinic) 8.9 H Cholesterol 147 Urine Microalbumin 67.0 [facility] Medical History PAD (peripheral artery disease) Other and unspecified hyperlipidemia Essential hypertension Type 2 diabetes mellitus with unspecified complications Allergic rhinitis Stroke Nausea & vomiting Hospital discharge follow-up Atypical chest pain Diabetes Hyperlipidemia HTN (hypertension) Surgical History History of amputation below knee History of amputation of toe History of amputation of great toe Hx of colonoscopy Family History Father No problems noted. Mother Myocardial infarction Sister Diabetes Hypertension Social History Household Members: Spouse Housing: House Do you presently have visiting nurse or other home services: No Alcohol intake: former Patient Tobacco Use Status: Never used Tobacco e-Cigarette/Vaping Use: Never Used Second Hand Smoke Exposure: No Advance Directives Date on File: 12/22/23 service: No Current occupational status: retired Cognitive needs: Yes (Wheel Chair) Hearing needs: No Vision needs: No Questionnaire PHQ-9 Over the last 2 weeks, how often have you been bothered by any of the following problems? 1. Little interest or pleasure in doing things: not at all 2. Feeling down, depressed, or hopeless: not at all 3. Trouble falling or staying asleep, or sleeping too much: not at all 4. Feeling tired or having little energy: not at all 5. Poor appetite or overeating: not at all 6. Feeling bad about yourself - or that you are a failure or have let yourself or your family down: not at all 7. Trouble concentrating on things, such as reading the newspaper or watching television: not at all 8. Moving or speaking so slowly that other people could have noticed. Or the opposite - being so fidgety or restless that you have been moving around a lot more than usual: not at all 9. Thoughts that you would be better off or of hurting yourself in some way: not at all Total score: 0 Depression Screening Interpretation: Negative Depression Screening Done: Yes 03531 - PHQ-9 Billing: Yes Source: Developed by Drs. Peter Galdamez, Gala Esquivel, Warren Wayne and colleagues, with an educational xuan from [employer]. Thrive Questionnaire Date Thrive assessed: 11/06/24 I am a: Patient What is your living situation today?: I have a steady place to live Within the past 12 months, did the food you bought not last and you didn't have the money to get more?: Never true Within the past 12 months, did you worry whether your food would run out before you got money to buy more?: Never true Do you have trouble paying for medicines?: No Do you have trouble getting transportation to medical appointments?: No Do you have trouble paying your heating and electricity bill?: No Do you have trouble taking care of your child, family member or friend?: No Do you have trouble with day-to-day activities such as bathing, preparing meals, shopping, managing finances, etc.?: No Are you currently unemployed and looking for a job?: No Are you interested in more education?: No Please select the resources that you would like help with: None Currently or been in a relationship where the following occur: No concerns reported THRIVE Score: 0 AUDIT C Alcohol Use Questionnaire (AUDIT-C) 1. How often do you have a drink containing alcohol?: Never Total Score: 0 VICTOR HUGO-7 AMB Questionnaire VICTOR HUGO-7 Date VICTOR HUGO - 7 assessed: 11/06/24 Feeling nervous, anxious, or on edge: 0 = Not at all Not being able to stop or control worryin = Not at all Worrying too much about different things: 0 = Not at all Trouble relaxin = Not at all Being so restless that it is hard to sit still: 0 = Not at all Becoming easily annoyed or irritable: 0 = Not at all Feeling afraid as if something awful might happen: 0 = Not at all Total VICTOR HUGO-7 score (0-4 normal; 5-9 mild; 10-14 moderate; 15-21 severe): 0 Source: Developed by Drs. Peter Galdamez, Gala Esquivel, Warren Wayne and colleagues, with an educational xuan from [employer]. VICTOR HUGO-7 Assessment Billing VICTOR HUGO-7 Assessment Tool: VICTOR HUGO-7 Assessment 06067 Review of Systems Const Denies headache(s) Eyes Denies loss of vision ENT Denies vertigo, Denies dizziness, Denies headache(s) and Denies sore throat Card Denies chest pain, Denies leg edema and Denies lightheadedness Resp Denies cough, Denies hemoptysis and Denies wheezing GI Denies abdominal pain, Denies melena, Denies constipation, Denies diarrhea and Denies vomiting Denies dysuria, Denies urinary frequency and Denies urinary urgency Musc Denies arthralgias, Denies joint swelling, Denies numbness and Denies tingling Neuro Denies Abnormal speech present, Denies behavioral changes, Denies vertigo, Denies dizziness, Denies headache(s), Denies loss of vision, Denies memory loss, Denies numbness and Denies tingling Psych Denies anxiety, Denies behavioral changes, Denies depression, Denies memory loss and Denies panic attacks Ankit/Lymph Denies easy bleeding and Denies easy bruising Aller/Immun Denies wheezing Physical exam (Primary Care) Vital Signs: Last Vital Signs Pulse 85 11/06/24 09:09 BP 118/76 11/06/24 09:09 Pulse Ox 97 11/06/24 09:09 Oxygen Delivery Method Room Air 11/06/24 09:09 BMI result Body Mass Index 26.2 Tobacco/Smoking Status: Tobacco use Status Tobacco use date assessed 11/06/24 11/06/24 09:15 Patient Tobacco Use Status Never used Tobacco 11/06/24 09:15 e-Cigarette/Vaping Use Never Used 11/06/24 09:15 PHQ-9: PHQ-9 Score PHQ-9: Total score 0 11/06/24 09:23 Depression Screening Interpretation: Negative Thrive Assessment: Date of Thrive Assessment Date Thrive assessed 11/06/24 11/06/24 09:15 Currently or been in a relationship where the following occur: No concerns reported Const General: healthy appearing, no acute distress, alert and awake Nutritional Appearance: well nourished Orientation/consciousness: oriented to person, oriented to place and oriented to time HENMT Ears: TM's normal bilaterally General nose exam: Normal nasal mucous membranes and turbinates present Eyes Conjunctivae: conjunctivae normal Sclerae: sclerae normal Pupils: Equal, round and reactive pupils present Neck Neck: Yes no lymphadenopathy and Yes no JVD Thyroid: Thyroid normal Carotids: no bruits Resp Effort & Inspection: normal respiratory effort and not tachypneic Auscultation: no crackles, no rales, no rhonchi and no wheezes Cardio Rate: regular rate Rhythm: regular rhythm Heart sounds: no murmurs and normal S1 and S2 GI Palpation (GI): Soft to palpation, nontender, no hepatomegaly and no splenomegaly Auscultation: normal bowel sounds Skin General skin exam: no rashes or lesions noted and dry skin Neuro General: oriented to person, oriented to place and oriented to time Cranial nerves: Yes Equal, round and reactive pupils present Speech: No Abnormal speech present Gait exam (Neuro): Normal gait present Motor exam (neuro): no tremor noted Extrem Other: RIGHT BELOW-KNEE AMPUTATION NOTED- HAS LEG PROSTHESIS Right upper extremity: full ROM Left upper extremity: full ROM Right lower extremity: full ROM; no edema Left lower extremity: full ROM; no edema Psych Mental Status: mental status grossly normal Speech and movement: Normal speech and movement present Affect: normal affect Attitude: cooperative Thought process: Normal thought process present Coding Level of Care Code Est Pt Level 4 (24145) Diagnoses Type 2 diabetes mellitus with unspecified complications E11.8 Elevated PSA R97.20 Essential hypertension I10 Hypertension type: essential hypertension Status post below-knee amputation of right lower extremity Z89.511 Laterality: right Microalbuminuria due to type 2 diabetes mellitus E11.29; R80.9 Additional Codes PHQ-9 - 87863 - PHQ-9 Billing: Yes ([id number]) VICTOR HUGO-7 Assessment Billing - VICTOR HUGO-7 Assessment Tool: VICTOR HUGO-7 Assessment [id number] ([id number]) Assessment & Plan Assessment & Plan (1) Type 2 diabetes mellitus with unspecified complications: Code(s): E11.8 - Type 2 diabetes mellitus with unspecified complications Category: Medical Plan: Patient's type 2 diabetes suboptimally controlled. Ozempic has been too expensive patient thus has stopped using this medication. 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 He has been making better strides with his diabetic diet. Will try alternative GLP 1 in hopes it will be covered through insurance as it has helped with glycemic control for this patient. A1c goal to be below 7.0. (2) Elevated PSA: Code(s): R97.20 - Elevated prostate specific antigen [PSA] Category: Medical Plan: Patient's most recent PSA elevated. Continues on tamsulosin. Will recheck PSA at next lab draw. (3) HTN (hypertension): Code(s): I10 - Essential (primary) hypertension Category: Medical Qualifiers: Hypertension type: essential hypertension Qualified Code(s): I10 - Essential (primary) hypertension Plan: Patient's blood pressure acceptable today in office , will continue current dose of antihypertensive medication. Goal blood pressures to be below 140/90 (4) S/P BKA (below knee amputation): Code(s): Z89.519 - Acquired absence of unspecified leg below knee Category: Surgical Qualifiers: Laterality: right Qualified Code(s): Z89.511 - Acquired absence of right leg below knee Plan: Patient continues to work on physical therapy at home. Does have a prosthetic right lower leg and has been in physical therapy. He is ambulating with a w alker at this time. (5) Microalbuminuria due to type 2 diabetes mellitus: Code(s): E11.29 - Type 2 diabetes mellitus with other diabetic kidney complication; R80.9 - Proteinuria, unspecified Category: Medical Plan: Noted microalbuminuria likely secondary to his type 2 diabetes. Orders: Orders Complete Blood Count no Diff Today E11.8 - Type 2 diabetes mellitus with unspecified complications Comprehensive [place]. Panel Fast Today E11.8 - Type 2 diabetes mellitus with unspecified complications Lipid Panel Today E78.2 - Mixed hyperlipidemia Prostate Specific Antigen Scr Today R97.20 - Elevated prostate specific antigen [PSA], Z12.5 - Encounter for screening for malignant neoplasm of prostate Referrals Podiatry Referral E11.65 - Type 2 diabetes mellitus with hyperglycemia, Z79.4 - business programmer (current) use of insulin Medications: New tirzepatide (weight loss) for 4 weeks 2.5 mg (0.5 mL) subcut QWEEK 2 mL 0RF 4 weeks E11.8 - Type 2 diabetes mellitus with unspecified complications Refilled amlodipine 10 mg PO DAILY 90 tabs 1RF I10 - Essential (primary) hypertension atorvastatin 10 mg PO DAILY 90 tabs 1RF 90 days E78.2 - Mixed hyperlipidemia metformin 1,000 mg PO BID 180 tabs 1RF 90 days E11.9 - Type 2 diabetes mellitus without complications tamsulosin 0.4 mg PO BEDTIME 90 caps 1RF R97.20 - Elevated prostate specific antigen [PSA] pen needle, diabetic (BD Ultra-Fine Sarah Pen Needle) As directed 100 ea 1RF E11.8 - Type 2 diabetes mellitus with unspecified complications Lantus Solostar U-100 Insulin (insulin glargine) 22 units (0.22 mL) subcut QAM 19.8 mL 3RF 90 days NS E11.8 - Type 2 diabetes mellitus with unspecified complications lisinopril 10 mg PO DAILY 90 tabs 1RF 90 days I10 - Essential (primary) hypertension Patient Instructions: Goal: Blood pressure to remain below 140/90, A1c to be below 7.0 Barriers: Adherence to physical activity and healthy eating habits
[2024-11-06 09:09] VITALS: BP 118/76; PULSE 85; O2SAT 97; BMI 26.2
--- OUTSIDE RECORDS SUMMARY | 2024-11-06 09:25 | XMS_ITS | Encounter Summary ---
Author Organization [employer] Address [address] [facility] [address] [place] [address] Care Team Providers Care Pediatrician Managing Partner Name Role Phone Unavailable Primary Care Provider Unavailabl e Encounter Details Date Type Department Care Team (Latest Contact Info) Description 04/19/2019 Abstract [facility] CONVERSIONS Dental, Provider, DDS Social History Tobacco [...]
--- OUTSIDE RECORDS SUMMARY | 2024-11-06 09:25 | XMS_ITS | Clinical Summary ---
Author Organization [employer] Address [address] [facility] [address] [place] [address] Care Team Providers Care Supervisor Treating And Pumping Name Role Phone Unavailable Primary Care Provider [...]
== END 2024-11-06 09:40 | disposition home or self-care (01) ==
PROVIDERS: PCP Physician Assistant; Visit Provider Physician Assistant
DX: E11.8 Type 2 diabetes mellitus with unspecified complications (principal); Z89.511 Acquired absence of right leg below knee; E11.29 Type 2 diabetes mellitus with other diabetic kidney complication; R97.20 Elevated prostate specific antigen [PSA]; I10 Essential (primary) hypertension; R80.9 Proteinuria, unspecified

== ENCOUNTER → 2024-11-06 08:47 | Outpatient (BNVA) | payer MEDICARE, SELFPAY | PROVIDERS: PCP Physician Assistant; Visit Provider Physician Assistant | DX: E11.29 Type 2 diabetes mellitus with other diabetic kidney complication (principal); R80.9 Proteinuria, unspecified; I10 Essential (primary) hypertension; R97.20 Elevated prostate specific antigen [PSA]; Z89.511 Acquired absence of right leg below knee | CPT/HCPCS: 96127; 99212 ==

== ENCOUNTER 2024-12-24 15:00 | Outpatient (RCR) | payer MEDICARE, SELFPAY ==
--- NOTE | 2024-09-19 09:53 | MHC.PT.EP ---
[facility] [place] Office [place] Office [place] Office [address] Lorne Swain [address] [phone] F: [phone] F: [phone] F: [phone] F: [phone] Physical Therapy Plan of Care Date of Evaluation: 09/18/24 Date of Surgery: 01/26/24 Diagnosis: Acquired absence of right leg below knee S/P BKA (below knee amputation). Patient interested in balance training now has new prosthetic leg Assessment: Pt is a very pleasant and motivated 74yo M who is s/p R BKA on 01/26/24. He has had his prosthetic for ~2 months. He presents to PT with current impairments in decreased strength, decreased balance/proprioception, and impaired gait. He is limited functionally by prolonged standing, prolonged walking, sit>stand from recliner, and stair navigation. He is a good candidate for skilled PT in order to address current impairments to facilitate return to OF of independent. He is recommended to be seen 2x/week for 4 weeks and will be reassessed at that time Frequency and Duration: The patient will be seen 2x/week for 4 weeks Short Term Goals: Pt will be I with HEP to promote self management of symptoms Pt will improve R knee extension strength to 4+/5 Care Home Goals: Pt will demonstrate ability to perform sit>stand without UE support from varying surfaces Pt will ambulate > 200' independently with SPC on multidirectional path safely Pt will ascend/descend 1 flight of stairs with reciprocal pattern safely Treatment Plan: Modalities to reduce pain, spasms and effusion. Manual therapy to restore motion and function. Therapeutic exercise to improve strength and flexibility. Neuromuscular re-education for posture and balance. Therapeutic activities to return to functional activities of daily living. Electronically signed by: Yvrose Lopez, PT, DPT Please sign and return to therapist. Thank you for your referral.
--- NOTE | 2025-02-27 14:37 | MHC.PT.DC ---
[facility] [place] Office [place] Office [place] Office [address] Lorne Swain [address] [phone] F: [phone] F: [phone] F: [phone] F: [phone] Physical Therapy Discharge Report Diagnosis: Acquired absence of right leg below knee S/P BKA (below knee amputation). Patient interested in balance training now has new prosthetic leg Date of Surgery: 01/26/24 Date of Evaluation: 09/18/24 Date of Discharge: 02/27/25 Treatments to Date: Cancellations to Date: No Shows to Date: Discharge Status: Improved Function Independent with HEP Patient Elected to Stop Discharge Summary: Pt was seen for skilled PT from 09/18/24-12/24/24. He made excellent progress since SOC. He cancelled his last 2 scheduled appointments. He is being D/C from skilled PT as he has not attended or called to reschedule in > 30 days. Pt current level of function unknown at this time Electronically signed by: Yvrose Lopez, PT, DPT Please sign and return to therapist. Thank you for your referral.
== END 2025-02-27 14:36 | disposition home or self-care (01) ==
LOC: HO.PT 15:00
PROVIDERS: PCP Physician Assistant; Visit Provider Physician Assistant
DX: Z89.511 Acquired absence of right leg below knee (principal)
CPT/HCPCS: 97110; 97112; 97116; 97162; 97530

== ENCOUNTER 2025-01-23 09:12 | Outpatient (AMB) | payer MEDICARE, SELFPAY ==
--- NOTE | 2025-01-23 09:16 | MHC.OFFVIS ---
Vital Signs 01/23/25 09:20 Height 5 ft 11 in Weight 192 lb 7.417 oz BMI 26.8 BP 116/68 Blood Pressure Location Rt brachial Position Sitting Pulse 88 Pulse Source Pulse Oximeter Pulse Oximetry (%) 97 Oxygen Delivery Method Room Air Intake Visit Reasons: DM Intake Note: Patient presents today for a follow-up for Type 2 Diabetes Mellitus: Last Diabetic Eye exam: OVER DUE, Requesting referral Last Podiatry Exam: Does not see a Drawing Press Operator Most recent HbA1c: 8.5% 01/23/2025 Random Glucose- 238 mg/dL, Today Warehouse Consultant Required: No Accompanied by: Significant Other Allergies sitagliptin [From JANUVIA] Allergy (Unknown, Verified 01/23/25 09:21) vomitting dulaglutide [From Trulicity] Adverse Reaction (Intermediate, Verified 01/23/25 09:21) Rash pioglitazone [From Actos] Adverse Reaction (Intermediate, Verified 01/23/25 09:21) palpatations HPI Comments Details: 74 year old male with a past medical history of type 2 diabetes presenting for follow up Medical hx: PAD, hypertension, hyperlipidemia, OA Initially diagnosed with T2DM >10 years. Current regimen:On metformin 1000 mg BID, ozempic 0.5mg weekly (have not been on due to copay_, lantus 22 (increased from 18 units), lispro 6units with dinner Intolerant meds: trulicity, januvia, actos. Previously on glimepiride Has Jammin Java manuela 2 CGM phone reviewed, 3 lows 9pm-3am- A1C 8.5% from 8.5% from 7.7% from 9.6%. Family history of T2DM in sisters have Type 2 DM and mother Sees ophtho -needs a new referral which is placed Sees podiatry every 3 mos Micro/macrovascular complications: PAD, osteo s/p right BKA. On KHALIDA/ARB. On statin ROS CONSTITUTIONAL: Denies weight loss, fever and chills. HEENT: Denies changes in vision and hearing. RESPIRATORY: Denies SOB and cough. CV: Denies palpitations and CP GI: Denies abdominal pain, nausea, vomiting and diarrhea. : Denies dysuria and urinary frequency. MSK: Denies new myalgia and joint pain. SKIN: Denies rash and pruritus. NEUROLOGICAL: Denies headache PSYCHIATRIC: Denies recent changes in mood. PHYSICAL EXAM: GENERAL: Alert and oriented x 3. NAD EYES: EOMI. Anicteric. HENT: Moist mucous membranes. No scleral icterus. No cervical lymphadenopathy. LUNGS: Clear to auscultation bilaterally. CARDIOVASCULAR: RRR, +murmur ABDOMEN: Soft, non-tender +bs EXTREMITIES: RBKA SKIN: No rashes or lesions. Warm. NEUROLOGIC: No focal neurological deficits. CN II-XII grossly intact PSYCHIATRIC: Cooperative. Appropriate mood and affect [facility] Medical History PAD (peripheral artery disease) Other and unspecified hyperlipidemia Essential hypertension Type 2 diabetes mellitus with unspecified complications Allergic rhinitis Stroke Nausea & vomiting Hospital discharge follow-up Atypical chest pain Diabetes Hyperlipidemia HTN (hypertension) Surgical History History of amputation below knee History of amputation of toe History of amputation of great toe Hx of colonoscopy Family History Father No problems noted. Mother Myocardial infarction Sister Diabetes Hypertension Social History Household Members: Spouse Housing: House Do you presently have visiting nurse or other home services: No Alcohol intake: former Patient Tobacco Use Status: Never used Tobacco e-Cigarette/Vaping Use: Never Used Second Hand Smoke Exposure: No Advance Directives Date on File: 12/22/23 service: No Current occupational status: retired Cognitive needs: Yes (Wheel Chair) Hearing needs: No Vision needs: No Physical Exam Vital Signs: Last Vital Signs Pulse 88 01/23/25 09:20 BP 116/68 01/23/25 09:20 Pulse Ox 97 01/23/25 09:20 Oxygen Delivery Method Room Air 01/23/25 09:20 BMI result Body Mass Index 26.8 Results AMB Hemoglobin A1c AMB Hemoglobin A1c 8.5 % Last Edit by ELADIA Noriega on 01/23/25 09:39 Assessment & Plan Assessment & Plan (1) Insulin use (long-term) in type 2 diabetes: Code(s): E11.9 - Type 2 diabetes mellitus without complications; Z79.4 - senior living (current) use of insulin Category: Medical Qualifiers: Diabetes mellitus complication status: with hyperglycemia Qualified Code(s): E11.65 - Type 2 diabetes mellitus with hyperglycemia; Z79.4 - computer terminal operator (current) use of insulin Plan suboptimal but stable. A few 9pm-3am lows. If dinner is small decrease to 4units Increase lantus to 25 units if ozempic copay is still to high to restart continue metformin Return in 3 months or sooner as needed Orders: Orders AMB Hemoglobin A1c Today E11.65 - Type 2 diabetes mellitus with hyperglycemia, Z79.4 - computer terminal operator (current) use of insulin Referrals Ophthalmology Referral E11.65 - Type 2 diabetes mellitus with hyperglycemia, Z79.4 - senior living (current) use of insulin Medications: New Ozempic (semaglutide) 0.5 mg (0.736 mL) subcut QWEEK 3 mL 3RF NS E11.65 - Type 2 diabetes mellitus with hyperglycemia, Z79.4 - computer terminal operator (current) use of insulin Changed From Lantus Solostar U-100 Insulin (insulin glargine) 22 units (0.22 mL) subcut QAM 90 days 19.8 mL 3RF NS E11.8 - Type 2 diabetes mellitus with unspecified complications To Lantus Solostar U-100 Insulin (insulin glargine) 25 units (0.25 mL) subcut QAM 90 days 22.5 mL 3RF NS E11.8 - Type 2 diabetes mellitus with unspecified complications Refilled amlodipine 10 mg PO DAILY 90 tabs 1RF I10 - Essential (primary) hypertension Discontinued tirzepatide (Mounjaro) for 4 weeks Discontinued Reason: Doctor's Order 2.5 mg (0.5 mL) subcut QWEEK 4 weeks 2 mL 1RF E11.8 - Type 2 diabetes mellitus with unspecified complications Coding Level of Care Code Est Pt Level 4 (66499) Diagnoses Type 2 diabetes mellitus with hyperglycemia, with long-term current use of insulin E11.65; Z79.4 Diabetes mellitus complication status: with hyperglycemia
[2025-01-23 09:20] VITALS: BP 116/68; PULSE 88; O2SAT 97; BMI 26.8
[2025-01-23 09:34] LABS: Glucose, Whole Blood 238 mg/dL (60-115)
--- OUTSIDE RECORDS SUMMARY | 2025-01-23 09:41 | XMS_ITS | Clinical Summary ---
Author Organization [employer] Address [address] [facility] [address] [place] [address] Care Team Providers Care Cloth Weigher Name Role Phone Unavailable Primary Care Provider [...]
--- OUTSIDE RECORDS SUMMARY | 2025-01-23 09:41 | XMS_ITS | Encounter Summary ---
Author Organization [employer] Address [address] [facility] [address] [place] [address] Care Team Providers Care Front Desk Team Member Name Role Phone Unavailable Primary Care Provider Unavailabl e Encounter Details Date Type Department Care Team (Latest Contact Info) Description 04/19/2019 Abstract [facility] CONVERSIONS Dental, Provider, DDS Social History [...]
== END 2025-01-23 09:52 | disposition home or self-care (01) ==
LOC: HO.ENCR 09:12
PROVIDERS: PCP Physician Assistant; Visit Provider Internal Medicine
DX: E11.65 Type 2 diabetes mellitus with hyperglycemia (principal); Z79.4 Long term (current) use of insulin

== ENCOUNTER → 2025-01-23 09:12 | Outpatient (BNVA) | payer MEDICARE, SELFPAY | PROVIDERS: PCP Physician Assistant; Visit Provider Internal Medicine | DX: E11.65 Type 2 diabetes mellitus with hyperglycemia (principal); Z79.4 Long term (current) use of insulin | CPT/HCPCS: 82947; 83036; 99212 ==

== ENCOUNTER 2025-04-17 10:41 | Outpatient (AMB) | payer MEDICARE, SELFPAY ==
[2025-04-17 10:45] VITALS: BP 130/78; PULSE 87; O2SAT 97; BMI 27.4
--- NOTE | 2025-04-17 10:45 | A.OFFVIS_ITS ---
Vital Signs 04/17/25 10:45 Height 5 ft 11 in Weight 196 lb 3.382 oz BMI 27.4 BP 130/78 Blood Pressure Location Rt brachial Position Sitting Pulse 87 Pulse Source Pulse Oximeter Pulse Oximetry (%) 97 Oxygen Delivery Method Room Air Intake Visit Reasons: DM Intake Note: Patient presents today for a follow-up for Type 2 Diabetes Mellitus: Last Diabetic Eye exam: Has an appt coming up 04/26/2025 Last Podiatry Exam: Does not see a Supplier Engineer Most recent HbA1c: 9.4%, 04/17/2025 Random Glucose- 201 mg/dL, Today Life Science Taxonomist Required: No Accompanied by: Significant Other Allergies sitagliptin (From Green [employer]) Allergy (Unknown, Verified 04/17/25 10:59) vomitting dulaglutide (From TrulicDATAllegro) Adverse Reaction (Intermediate, Verified 04/17/25 10:59) Rash pioglitazone (From Actos) Adverse Reaction (Intermediate, Verified 04/17/25 10:59) palpatations Medication List - Last Reconciled 04/17/25 by Luba Mills MD acetaminophen (Tylenol Extra Strength) 500 mg PO Q6H PRN amlodipine 10 mg PO DAILY aspirin 81 mg PO DAILY 90 days atorvastatin 10 mg PO DAILY 90 days blood-glucose meter (FreeStyle Lite Meter kit) As directed tests 4 X/day chair, wheel (Wheel chair) As directed FreeStyle Lancets (lancets) once daily NS FreeStyle Enrrique 3 Plus Sensor (blood-glucose sensor) As directed NS FreeStyle Enrrique 3 [place] (blood-glucose,configuration engineer,cont) As directed NS FreeStyle Lite Strips (blood sugar diagnostic) As directed tests 4 X/day NS FreeStyle Lite Strips (blood sugar diagnostic) once daily NS Humalog KwikPen Insulin (insulin lispro) 6 units (0.06 mL) subcut .once daily NS Lantus Solostar U-100 Insulin (insulin glargine) 25 units (0.25 mL) subcut QAM 90 days NS lisinopril 10 mg PO DAILY 90 days metformin 1,000 mg PO BID 90 days Ozempic (semaglutide) 0.5 mg (0.736 mL) subcut QWEEK NS pen needle, diabetic As directed BID tamsulosin 0.4 mg PO BEDTIME walker Folding Front wheeled walker walker Folding Front wheeled walker HPI Comments Details: 75 year old male with a past medical history of type 2 diabetes presenting for follow up Medical hx: PAD, hypertension, hyperlipidemia, OA Initially diagnosed with T2DM >10 years. Current regimen: On metformin 1000 mg BID, lantus 22 units lispro 6units with dinner Had improved control on ozempic but the copay is too high. Mounjaro is even higher. Intolerant meds: trulicity, januvia, actos. Previously on glimepiride POC A1C today is 9.4% up from 8.5% Has [employer] 2 CGM phone reviewed-GMI 8.4% 29% VH, 36% high, TT 34%, low 1% Family history of T2DM in sisters have Type 2 DM and mother Sees ophtho -needs a new referral which is placed Sees podiatry every 3 mos Micro/macrovascular complications: PAD, osteo s/p right BKA. On KHALIDA/ARB. On statin ROS CONSTITUTIONAL: Denies weight loss, fever and chills. HEENT: Denies changes in vision and hearing. RESPIRATORY: Denies SOB and cough. CV: Denies palpitations and CP GI: Denies abdominal pain, nausea, vomiting and diarrhea. : Denies dysuria and urinary frequency. MSK: Denies new myalgia and joint pain. SKIN: Denies rash and pruritus. NEUROLOGICAL: Denies headache PSYCHIATRIC: Denies recent changes in mood. PHYSICAL EXAM: GENERAL: Alert and oriented x 3. NAD EYES: EOMI. Anicteric. HENT: Moist mucous membranes. No scleral icterus. No cervical lymphadenopathy. LUNGS: Clear to auscultation bilaterally. CARDIOVASCULAR: RRR, +murmur ABDOMEN: Soft, non-tender +bs EXTREMITIES: RBKA SKIN: No rashes or lesions. Warm. NEUROLOGIC: No focal neurological deficits. CN II-XII grossly intact PSYCHIATRIC: Cooperative. Appropriate mood and affect [facility] Medical History PAD (peripheral artery disease) Other and unspecified hyperlipidemia Essential hypertension Type 2 diabetes mellitus with unspecified complications Allergic rhinitis Stroke Nausea & vomiting Hospital discharge follow-up Atypical chest pain Diabetes Hyperlipidemia HTN (hypertension) Surgical History History of amputation below knee History of amputation of toe History of amputation of great toe Hx of colonoscopy Family History Father No problems noted. Mother Myocardial infarction Sister Diabetes Hypertension Social History Household Members: Spouse Housing: House Do you presently have visiting nurse or other home services: No Alcohol intake: former Patient Tobacco Use Status: Never used Tobacco e-Cigarette/Vaping Use: Never Used Second Hand Smoke Exposure: No Advance Directives Date on File: 12/22/23 service: No Current occupational status: retired Cognitive needs: Yes (Wheel Chair) Hearing needs: No Vision needs: No Physical Exam Vital Signs: Last Vital Signs Pulse 87 04/17/25 10:45 BP 130/78 04/17/25 10:45 Pulse Ox 97 04/17/25 10:45 Oxygen Delivery Method Room Air 04/17/25 10:45 BMI result Body Mass Index 27.4 Results AMB Hemoglobin A1c AMB Hemoglobin A1c 9.4 % Last Edit by ELADIA Forrester on 04/17/25 11:03 Results Reviewed Results Reviewed: Laboratory Last Values Glucose (Clinic) 201 mg/dL (60-115) H 04/17/25 10:54 Hgb A1c (Clinic) 9.4 % (4.0-6.0) H 04/17/25 11:02 Assessment & Plan Assessment & Plan (1) Type 2 diabetes mellitus with unspecified complications: Code(s): E11.8 - Type 2 diabetes mellitus with unspecified complications Category: Medical (2) Microalbuminuria due to type 2 diabetes mellitus: Code(s): E11.29 - Type 2 diabetes mellitus with other diabetic kidney complication; R80.9 - Proteinuria, unspecified Category: Medical Plan 75 year old for diabetes Worsening hyperglycemia after stopped GLP. Unfortunately with current insurance the copay is too high for either mounjaro or ozempic and he has not toleratedd trulicity in the past Increase Lantus to 25 units daily. Start 6 units of humalog with lunch, continue 6 units with dinner. continue metformin. Treat hypoglycemia by rules of 15s Return in 3 months or sooner as needed Orders: Orders AMB Hemoglobin A1c Today E11.8 - Type 2 diabetes mellitus with unspecified complications Medications: New [Single Ply socks] 9 single ply socks (1 pack multiple) 9 ea 0RF Z89.511 - Acquired absence of right leg below knee Changed From FreeStyle Enrrique 3 Plus Sensor (blood-glucose sensor) As directed 6 ea 3RF NS E11.8 - Type 2 diabetes mellitus with unspecified complications, E11.9 - Type 2 diabetes mellitus without complications, Z79.4 - manager intermediate (current) use of insulin To FreeStyle Enrrique 3 Plus Sensor (blood-glucose sensor) every 15 days 6 ea 3RF NS E11.8 - Type 2 diabetes mellitus with unspecified complications, E11.9 - Type 2 diabetes mellitus without complications, Z79.4 - assisted (current) use of insulin Refilled FreeStyle Enrrique 3 [place] (blood-glucose,configuration engineer,cont) As directed 1 ea 0RF NS E11.8 - Type 2 diabetes mellitus with unspecified complications, E11.9 - Type 2 diabetes mellitus without complications, Z79.4 - assisted (current) use of insulin Humalog KwikPen Insulin (insulin lispro) 15 minutes prior to lunch and dinner 6 units (0.06 mL) subcut BID 30 mL 3RF NS E11.8 - Type 2 diabetes mellitus with unspecified complications Lantus Solostar U-100 Insulin (insulin glargine) 25 units (0.25 mL) subcut QAM 22.5 mL 3RF 90 days NS E11.8 - Type 2 diabetes mellitus with unspecified complications metformin 1,000 mg PO BID 180 tabs 1RF 90 days E11.9 - Type 2 diabetes mellitus without complications On Hold Ozempic (semaglutide) Hold Comment: Doctor's Order 0.5 mg (0.736 mL) subcut QWEEK 3 mL 3RF NS E11.65 - Type 2 diabetes mellitus with hyperglycemia, Z79.4 - assisted (curre nt) use of insulin Coding Level of Care Code Est Pt Level 4 (16021) Diagnoses Type 2 diabetes mellitus with unspecified complications E11.8 Microalbuminuria due to type 2 diabetes mellitus E11.29; R80.9
[2025-04-17 10:57] LABS: Glucose, Whole Blood 201 mg/dL (60-115)
--- OUTSIDE RECORDS SUMMARY | 2025-04-17 11:24 | XMS_ITS | Patient Health Record ---
Author [facility] Address [address] [place] [address] Care Team Providers Care Community Educator Name Role Phone Vikash Pompa Primary Care Provider Unavailab Mary Jo Davis Unavailable [phone] Allergies Allergen (clinical drug ingredient) Drug/Non Drug Allergy documented on EMR Reaction Allergy Type Onset Date Status sitagliptin Januvia Unknown Drug Allergy Activ e dulaglutide Trulicity Unknown Drug Allergy Activ e Results Component Value Reference Range Notes HEMOGLOBIN A1C (GLYCOHEMOGLO BIN) Reviewed date:03/13/2025 08:36:37 AM Interpretation: Performing Lab: Notes/Report: HEMOGLOBIN A1C % (HH) 8.7 Reason For Referral No Information Medications Medication SIG (Take, Route, Frequency, Duration) Notes Start Date End Date Status metFORMIN HCl 1000 MG Oral; Duration: 90 Days Active HumaLOG KwikPen 100 UNIT/ML Subcutaneous; Duration: 37 Days Active metFORMIN HCl 1000 MG TAKE 1 TABLET BY M OUTH TWICE DAILY Oral; Duration: 90 Days Active Tamsulosin HCl 0.4 MG Oral; Duration: 90 Days Active glipiZIDE 5 MG Oral; Duration: 90 Days Active amLODIPine Besylate 10 MG TAKE 1 TABLET BY MOUTH DAILY Oral; Duration: 90 Days Active Lantus SoloStar 100 UNIT/ML Subcutaneous; Duration: 25 Days Active Atorvastatin Calcium 10 MG Oral; Duration: 90 Days Active Lisinopril 10 MG Oral; Duration: 90 Days Active Aspirin Low Dose 81 MG TAKE 1 TABLET BY MOUTH DAILY Oral; Duration: 90 Days Active Extra Depth Orthopedic Shoes (1 Pair) with Customized Heat Molded Multidensity Innersoles (3 Pair) Dx: NIDDM/Polyneuropathy (E11.42), Hammertoe Foot Deformity (M20.42), Preulcerative Skin Lesion(s) (L85.1) BKA Right; Duration: 365 days 03/13/2025 Active amLODIPine Besylate 10 MG TAKE 1 TABLET BY MOUTH DAILY Oral; Duration: 90 Days Active Immunizations Vaccine Route Administration Date Status Comme nts Influenza Unknown 05/13/2024 Administered Social History Tobacco Use: Social History Observation Description Date Details (start date - stop date) Never Smoker NA - NA Tobacco use other than smoking: Question Answer Notes Are you an other tobacco user? No Tobacco Control (Standard) Question Answer Notes Tobacco use: Nonsmoker Additional Findings: Tobacco non-user Current no nsmoker AUDIT-C (Standard) Question Answer Notes Did you have a drink containing alcohol in the p ast year? No Points 0 Interpretation Negative Problems Problem Type SNOMED Code ICD Code Onset Dates Problem Status W/U Status Risk Notes Problem Acquired hammer toe of left foot (5624990941659557) Other hammer toe(s) (acquired), left foot (M20.42) Active confirmed Problem Polyneuropathy due to type 2 diabetes mellitus (769069809) Type 2 diabetes mellitus with diabetic polyneuropathy (E11.42) Active confirmed Problem Bilateral atherosclerosis of arteries of lower limbs (40288163895976051 ) Atherosclerosis of artery of both lower extremities (I70.203) Active confirmed Vital Signs Blood pressure diastolic 81 mm Hg 03/13/2025 Height 5 ft 9 in in 03/13/2025 Blood pressure systolic 124 mm Hg 03/13/2025 Weight 183 lbs 03/13/2025 BMI 27.02 kg/m2 03/13/2025 Encounters Encounter Location Date Provider Diagnosis [facility] [address] [place] [address] 03/13/2025 Mary Jo Austin Type 2 diabetes mellitus with diabetic polyneuropathy E11.42 ; Tinea unguium B35.1 ; Other hammer toe(s) (acquired), left foot M20.42 and Atherosclerosis of artery of both lower extremities I70.203 Assessments Encounter Date Diagnosis (ICD Code) Assessment Notes Treatment Notes Treatment Clinical Notes Section Notes 03/13/2025 Tinea unguium (ICD-10 - B35.1) 03/13/2025 Type 2 diabetes mellitus with diabetic polyneuropathy (ICD-10 - E11.42) 03/13/2025 Other hammer toe(s) (acquired), left foot (ICD-10 - M20.42) 03/13/2025 Atherosclerosis of artery of both lower extremities (ICD-10 - I70.203) 03/13/2025 Other Patient Educated with: DIABETIC FOOT CARE INSTRUCTIONS. pdf (DIABETIC FOOT CARE INSTRUCTIONS. pdf) Plan Of Treatment Next Appt Details Provider Name:Mary Jo singh, 05/31/2025 02:00:00 PM, [address] [place] [address], [phone], Insurance Providers Payer Name Payer Address Payer Phone Subscriber Number Group Number Insured Name Patient Relationship to Insured Coverage Start Date Coverage End Date [employer] Medicare [id number] [address] [address] [place] [address] [id number] Rivera Hernandez Self - patient is the insured Medical (General) History Medical History History ICD Code type II diabetes High Blood Pressure Surgical History Surgery Date(Month/Year) amputation of foot total 12/03
--- OUTSIDE RECORDS SUMMARY | 2025-04-17 11:24 | XMS_ITS | Encounter Summary ---
Author Organization [facility] Address [address] [facility] [address] [place] [address] Care Team Providers Care Roller Machine Operator Name Role Phone Unavailable Primary Care Provider Unavailabl e Encounter Details Date Type Department Care Team (Latest Contact Info) Description 04/19/2019 Abstract [facility] CONVERSIONS Dental, Provider, DDS Social History [...]
--- OUTSIDE RECORDS SUMMARY | 2025-04-17 11:24 | XMS_ITS | Patient Health Record ---
Author Organization [facility] Address [address] [place] [address] Care Team Providers Care Health Information Manager Name Role Phone Vikash Pompa Primary Care Provider Unavailab Peter Romano Unavailable [phone] Reason For Referral No Information Medications Medication SIG (Take, Route, Fr equency, Duration) Notes Start Date End Date Status metFORMIN HCl 500 MG 2 tablet in the am and 1 in the pm with meals Orally daily Activ e glyBURIDE 5 MG 1 tablet Orally Once a day Active Aspir-81 81 MG 1 tablet Orally Once a day Active Lisinopril 10 MG 1 tablet Orally Once a day Active Simvastatin 40 MG 1 tablet in the even ing Orally Once a day Active NIFEdipine ER 90 MG 1 tablet Orally Once a day Active Immunizations Vaccine Route Administration Date Status Comme nts Influenza Unknown 06/09/2018 Administered Problems Problem Type SNOMED Code ICD Code Onset Dates Problem Status W/U Status Risk Notes Problem [id number] Encounter for screening for malignant neoplasm of colon (Z12.11) Active confirmed Problem [id number] Aspirin long-term use (Z79.82) Active confirmed Plan Of Treatment Pending Test Test Name Order Date GI BIOPSY 11/13/2018 Future Test Test Name Order Date COLONOSCOPY 08/25/2018 Insurance Providers Payer Name Payer Address Payer Phone Subscriber Number Group Number Insured Name Patient Relationship to Insured Coverage Start Date Coverage End Date MEDICARE OF [employer] [address] [place] [id number] VIANCA CROUCH Self - patient is the insured Medical (General) History Medical History History ICD Code Screening Colonoscopy 6-19-2 008--neg. except for an inflammatory polyp, diffuse diverticulosis, and internal hemorrhoids Hypertension NIDDM Hyperllipidemia Denies [place],CVA,Lung disease,renal disease Surgical History Surgery Date(Month/Year) surgery for a broken nose
== END 2025-04-17 11:33 | disposition home or self-care (01) ==
LOC: HO.ENCR 10:42
PROVIDERS: PCP Physician Assistant; Visit Provider Internal Medicine
DX: E11.8 Type 2 diabetes mellitus with unspecified complications (principal); E11.29 Type 2 diabetes mellitus with other diabetic kidney complication; R80.9 Proteinuria, unspecified

== ENCOUNTER → 2025-04-17 10:41 | Outpatient (BNVA) | payer MEDICARE, SELFPAY | PROVIDERS: PCP Physician Assistant; Visit Provider Internal Medicine | DX: E11.29 Type 2 diabetes mellitus with other diabetic kidney complication (principal); E11.65 Type 2 diabetes mellitus with hyperglycemia; E11.8 Type 2 diabetes mellitus with unspecified complications; R80.9 Proteinuria, unspecified; Z79.4 Long term (current) use of insulin; Z79.84 Long term (current) use of oral hypoglycemic drugs; Z79.899 Other long term (current) drug therapy | CPT/HCPCS: 82947; 83036; 99212 ==

== ENCOUNTER 2025-05-07 06:32 | Outpatient (REF) | payer MEDICARE, SELFPAY ==
--- OUTSIDE RECORDS SUMMARY | 2025-05-07 06:36 | XMS_ITS | Encounter Summary ---
Author Organization [facility] Address [address] [facility] [address] [place] [address] Care Team Providers Care Certified Medical Biller Name Role Phone Unavailable Primary Care Provider Unavailabl e Encounter Details Date Type Department Care Team (Latest Contact Info) Description 04/19/2019 Abstract [facility] CONVERSIONS Dental, Provider, DDS Social History Tobacco [...]
--- OUTSIDE RECORDS SUMMARY | 2025-05-07 06:36 | XMS_ITS | Clinical Summary ---
Author Organization [facility] Address [address] [facility] [address] [place] [address] Care Team Providers Care Perfect Binder Operator Name Role Phone Unavailable Primary Care [...] - 1-dose 75+ series) 2023 COVID-19 Vaccine (1 - 2023-2 5 season) 2024 Influenza Vaccine (#1) 2025 HIB Vaccines Aged Out No longer eligi [...] patient's age to complete this topic Meningococcal B Vaccine Aged Out No l onger eligible based on patient's age to complete [...]
--- OUTSIDE RECORDS SUMMARY | 2025-05-07 06:36 | XMS_ITS | Patient Health Record ---
Author [facility] Address [address] [facility] [place] [address] Care Team Providers Care Inbound Call Center Agent Name Role Phone Vikash Pompa Primary Care Provider Unavailab Mary Jo Davis Unavailable [phone] Allergies Allergen (clinical drug ingredient) Drug/Non Drug [...] Problem Acquired hammer toe of left foot (8016073947475463 ) Other hammer toe(s) (acquired), left foot (M20.42) Active confirmed Problem Polyneuropathy due to type 2 diabetes mellitus (663543973) Type 2 diabetes mellitus with diabetic polyneuropathy (E11.42) Active confirmed Problem Atherosclerosis of artery of both lower extremities (I70.203) Active confirmed Vital Signs Blood pressure diastolic 81 mm Hg 03/13/2025 Height 5 ft 9 in in 03/13/2025 Blood pressure systolic 124 mm Hg 03/13/2025 Weight 183 lbs 03/13/2025 BMI 27.02 kg/m2 03/13/2025 Encounters Encounter Location Date Provider Diagnosis [facility] [address] [address] 03/13/2025 Mary Jo Austin Type 2 diabetes [...] Provider Name:Mary Jo singh, 05/31/2025 02:00:00 PM, [address] [place] [address], [phone], Insurance Providers Payer Name Payer Address Payer Phone Subscriber Number Group Number Insured Name Patient Relationship to Insured Coverage Start Date Coverage End Date [employer] Medicare [id number] [address] [address] [place] [address] [id number] Rivera Hernandez Self - patient is the insured Medical (General) History Medical History History ICD Code type II diabetes High Blood Pressure Surgical History Surgery Date(Month/Year) amputation of foot total 12/03
--- OUTSIDE RECORDS SUMMARY | 2025-05-07 06:36 | XMS_ITS | Patient Health Record ---
Author Organization [facility] Address [address] [place] [address] Care Team Providers Care Plant Tender Name Role Phone Vikash Pompa Primary Care Provider Unavailab Peter Romano Unavailable [phone] Reason For Referral No Information Medications Medication [...] Problem Status W/U Status Risk Notes Problem 580762358 Encounter for screening for malignant neoplasm of colon (Z12.11) Active confirmed Problem [id number] Aspirin long-term use (Z79.82) Active confirmed Plan Of Treatment Pending Test Test Name Order Date GI BIOPSY 11/13/2018 Future Test Test Name Order Date COLONOSCOPY 08/25/2018 Insurance Providers Payer Name Payer Address Payer Phone Subscriber Number Group Number Insured Name Patient Relationship to Insured Coverage Start Date Coverage End Date MEDICARE OF [employer] [address] [place] [id number] [id number] VIANCA CROUCH Self - patient is the insured Medical (General) History Medical History History ICD Code Screening Colonoscopy 6-19-2 008--neg. except for an inflammatory polyp, diffuse diverticulosis, and internal hemorrhoids Hypertension NIDDM Hyperllipidemia Denies [place],CVA,Lung disease,renal disease Surgical History Surgery Date(Month/Year) surgery for a broken nose
[2025-05-07 07:36] LABS: Hematocrit 37.4 % (42.0-52.0); Hemoglobin 12.4 g/dl (14.0-18.0); Mean Corpuscular HGB Conc 33.2 g/dl (31.0-36.0); Mean Corpuscular Hemoglobin 29.7 pg (27.0-33.0); Mean Corpuscular Volume 89.5 fL (80.0-98.0); NRBC Abs Auto 0.000 X10*3/uL (0.0-0.012); NRBC Pct Auto 0.0 /100WBC (0.0-0.2); Platelet Count 221 X10*3/uL (160-400); Red Blood Count 4.18 X10*6/uL (4.60-5.80); White Blood Count 7.1 X10*3/uL (4.8-10.8)
[2025-05-07 07:58] LABS: Alanine Aminotransferase 31 U/L (0-40); Albumin Level 4.6 g/dL (3.5-5.0); Alkaline Phosphatase 87 U/L (39-117); Anion Gap 11 (12-20); Aspartate Amino Transferase 26 U/L (5-37); Blood Urea Nitrogen 14 mg/dL (9-16); Calcium 9.6 mg/dL (8.4-10.2); Carbon Dioxide 26 mmol/L (22-29); Chloride 104 mmol/L (96-108); Cholesterol 146 mg/dL (<200); Estimated Glomerular Filt Rate > 60; HDL Cholesterol 35 mg/dL (>40); Potassium 4.2 mmol/L (3.3-5.1); Sodium 137 mmol/L (135-145); Total Protein 8.0 g/dL (6.5-8.0); Triglycerides 104 mg/dL (<150)
== END 2025-05-07 06:33 | disposition home or self-care (01) ==
LOC: HO.LAB 06:32
PROVIDERS: PCP Physician Assistant; Visit Provider Physician Assistant
DX: Z12.5 Encounter for screening for malignant neoplasm of prostate (principal); R97.20 Elevated prostate specific antigen [PSA]; E11.8 Type 2 diabetes mellitus with unspecified complications; E78.2 Mixed hyperlipidemia
CPT/HCPCS: 36415; 80053; 80061; 84153; 85027

== ENCOUNTER 2025-05-08 14:05 | Outpatient (AMB) | payer MEDICARE, SELFPAY ==
[2025-05-08 14:28] VITALS: BP 152/60; PULSE 84; RESP 18; TEMP 36.2; O2SAT 94; BMI 27.7
--- NOTE | 2025-05-08 14:28 | MHC.PC.OV ---
Vital Signs 05/08/25 14:28 05/08/25 14:54 Height 5 ft 11 in Weight 198 lb 8 oz BMI 27.7 BP 152/60 H 134/60 Blood Pressure Location Lt brachial Position Sitting Respiration 18 Pulse 84 Pulse Source Pulse Oximeter Temp 97.1 F Temp Source Temporal Artery Scan Pulse Oximetry (%) 94 Oxygen Delivery Method Room Air Intake Visit Reasons: physical Almond Huller Required: No Accompanied by: Self / Same As Patient Allergies sitagliptin (From JANUVIA) Allergy (Unknown, Verified 05/08/25 14:46) vomitting dulaglutide (From Trulicity) Adverse Reaction (Intermediate, Verified 05/08/25 14:46) Rash pioglitazone (From Actos) Adverse Reaction (Intermediate, Verified 05/08/25 14:46) palpatations Medication List - Last Reconciled 05/08/25 by Vikash Pompa PA-C amlodipine 10 mg PO DAILY aspirin 81 mg PO DAILY 90 days atorvastatin 10 mg PO DAILY 90 days blood-glucose meter (FreeStyle Lite Meter kit) As directed tests 4 X/day chair, wheel (Wheel chair) As directed FreeStyle Lancets (lancets) once daily NS FreeStyle Enrrique 3 Plus Sensor (blood-glucose sensor) every 15 days NS FreeStyle Enrrique 3 Comfort (blood-glucose,production mechanic tin cans,cont) As directed NS FreeStyle Lite Strips (blood sugar diagnostic) As directed tests 4 X/day NS FreeStyle Lite Strips (blood sugar diagnostic) once daily NS Humalog KwikPen Insulin (insulin lispro) 6 units (0.06 mL) subcut BID NS Lantus Solostar U-100 Insulin (insulin glargine) 25 units (0.25 mL) subcut QAM 90 days NS lisinopril 10 mg PO DAILY 90 days metformin 1,000 mg PO BID 90 days pen needle, diabetic As directed BID [Single Ply socks 9 single ply socks (1 pack multiple)] tamsulosin 0.4 mg PO BEDTIME walker Folding Front wheeled walker walker Folding Front wheeled walker Tobacco use date assessed: 05/08/25 Fall risk assessment: No Falls in past year Last assessed Fall Risk: 05/08/25 Dental Screening Dental Screen Date: 05/08/25 Did you have a dental visit in the last 12 months?: No Did you have a dental problem in the last 6 months where you did not have access to dental care?: No Was dental information given to patient?: No HPI physical HPI Details Patient is a 75 year male here today for a annual physical . He is due for left knee total replacement this month. Patient has a past medical history significant for hypertension, uncontrolled diabetes, aortic valve sclerosis hyperlipidemia. . Hypertension: Patient's blood pressure acceptable today in office. Continues with lisinopril 10 mg daily with good effect. .. Aortic valve sclerosis: Has systolic murmur on physical exam. Followed by Cardiology here in [place]. No overt signs of heart failure. Echocardiogram done in 2022 showing--> The left ventricular systolic function is normal. The visually estimated ejection fraction is between 65-70%. - There is moderate calcification of the aortic valve. - There is mild mitral annular calcificatio . Type 2 Diabetes: Patient followed by endocrinology. Most recent A1c elevated above 9. Does admit to some dietary indiscretion. Has seen a dietitian in the past. 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 Patient has been working with physical therapy with his new right leg prosthetic.. UNFORTUNATELY PATIENT HAS NOT BEEN ABLE TO AFFORD OZEMPIC IN HIS NOT BEEN ON THE MEDICATION FOR QUITE SOME TIME. .. Hyperlipidemia: Patient continues with statin therapy without side effect. Most recent lipid panel showing excellent control of his total cholesterol and LDL. Goal LDL to remain below 100 Vaccines: COVID vaccine, up-to-date with tetanus, shingles Colorectal cancer screening: Does not want any further colorectal cancer screening due to age [facility] Medical History Right below-knee amputee PAD (peripheral artery disease) Other and unspecified hyperlipidemia Essential hypertension Type 2 diabetes mellitus with unspecified complications Allergic rhinitis Stroke Nausea & vomiting Hospital discharge follow-up Atypical chest pain Diabetes Hyperlipidemia HTN (hypertension) Surgical History History of amputation below knee History of amputation of toe History of amputation of great toe Hx of colonoscopy Family History Father No problems noted. Mother Myocardial infarction Sister Diabetes Hypertension Social History Household Members: Spouse Housing: House Do you presently have visiting nurse or other home services: No Alcohol intake: former Patient Tobacco Use Status: Never used Tobacco e-Cigarette/Vaping Use: Never Used Second Hand Smoke Exposure: No Advance Directives Date on File: 12/22/23 service: No Current occupational status: retired Cognitive needs: Yes (Wheel Chair) Hearing needs: No Vision needs: No Questionnaire PHQ-9 Over the last 2 weeks, how often have you been bothered by any of the following problems? 1. Little interest or pleasure in doing things: not at all 2. Feeling down, depressed, or hopeless: not at all 3. Trouble falling or staying asleep, or sleeping too much: not at all 4. Feeling tired or having little energy: not at all 5. Poor appetite or overeating: not at all 6. Feeling bad about yourself - or that you are a failure or have let yourself or your family down: not at all 7. Trouble concentrating on things, such as reading the newspaper or watching television: not at all 8. Moving or speaking so slowly that other people could have noticed. Or the opposite - being so fidgety or restless that you have been moving around a lot more than usual: not at all 9. Thoughts that you would be better off or of hurting yourself in some way: not at all Total score: 0 Depression Screening Interpretation: Negative Depression Screening Done: Yes 97059 - PHQ-9 Billing: Yes Source: Developed by Drs. Peter Galdamez, Gala Esquivel, Warren Wayne and colleagues, with an educational xuan from [employer]. Thrive Questionnaire Date Thrive assessed: 05/08/25 I am a: Patient What is your living situation today?: I have a steady place to live Within the past 12 months, did the food you bought not last and you didn't have the money to get more?: Never true Within the past 12 months, did you worry whether your food would run out before you got money to buy more?: Never true Do you have trouble paying for medicines?: Yes Do you have trouble getting transportation to medical appointments?: No Do you have trouble paying your heating and electricity bill?: No Do you have trouble taking care of your child, family member or friend?: No Do you have trouble with day-to-day activities such as bathing, preparing meals, shopping, managing finances, etc.?: Yes Are you currently unemployed and looking for a job?: No Are you interested in more education?: No Please select the resources that you would like help with: None Currently or been in a relationship where the following occur: No concerns reported THRIVE Score: 0 AUDIT C Alcohol Use Questionnaire (AUDIT-C) 1. How often do you have a drink containing alcohol?: Never 3. How often do you have six or more drinks on one occasion?: Never Total Score: 0 VICTOR HUGO-7 AMB Questionnaire VICTOR HUGO-7 Date VICTOR HUGO - 7 assessed: 05/08/25 Feeling nervous, anxious, or on edge: 0 = Not at all Not being able to stop or control worryin = Not at all Worrying too much about different things: 0 = Not at all Trouble relaxin = Several days Being so restless that it is hard to sit still: 1 = Several days Becoming easily annoyed or irritable: 0 = Not at all Feeling afraid as if something awful might happen: 0 = Not at all Total VICTOR HUGO-7 score (0-4 normal; 5-9 mild; 10-14 moderate; 15-21 severe): 2 Source: Developed by Drs. Peter Galdamez, Gala Esquivel, Warren Wayne and colleagues, with an educational xuan from [employer]. VICTOR HUGO-7 Assessment Billing VICTOR HUGO-7 Assessment Tool: VICTOR HUGO-7 Assessment 31229 Review of Systems Const Denies body aches, Denies chills, Denies excessive sweating, Denies fatigue, Denies fever(s) and Denies headache(s) Eyes Denies blurry vision ENT Denies dysphagia, Denies vertigo, Denies dizziness, Denies headache(s), Denies hearing loss and Denies tinnitus Card Denies chest pain, Denies chest pain with activity, Denies syncope, Denies irregular heart rhythm and Denies dyspnea Resp Denies chest congestion, Denies cough, Denies hemoptysis, Denies dyspnea and Denies wheezing GI Denies abdominal pain, Denies melena, Denies hematochezia, Denies coffee ground emesis, Denies dysphagia, Denies diarrhea, Denies nausea and Denies vomiting Denies difficulty urinating, Denies dysuria, Denies urinary frequency, Denies urinary hesitancy and Denies urinary urgency Musc Denies arthralgias, Denies limited range of motion, Denies muscle cramps and Denies muscle weakness Skin/Breast Denies rash and Denies skin ulcer Neuro Denies Abnormal speech present, Denies confusion, Denies vertigo, Denies dizziness, Denies syncope, Denies headache(s), Denies memory loss and Denies seizure-like activity Psych Denies anxiety, Denies confusion, Denies depression, Denies memory loss, Denies panic attacks and Denies paranoia Endo Denies excessive sweating, Denies fatigue, Denies flushing, Denies polydipsia and Denies polyuria Aller/Immun Denies wheezing Physical exam (Primary Care) Vital Signs: Last Vital Signs Temp 97.1 F 05/08/25 14:28 Resp 18 05/08/25 14:28 Oxygen Delivery Method Room Air 05/08/25 14:28 BMI result Body Mass Index 27.7 Tobacco/Smoking Status: Tobacco use Status Tobacco use date assessed 05/08/25 05/08/25 14:30 Patient Tobacco Use Status Never used Tobacco 05/08/25 14:30 e-Cigarette/Vaping Use Never Used 05/08/25 14:30 PHQ-9: PHQ-9 Score PHQ-9: Total score 0 05/08/25 14:35 Depression Screening Interpretation: Negative Thrive Assessment: Date of Thrive Assessment Date Thrive assessed 05/08/25 05/08/25 14:30 Currently or been in a relationship where the following occur: No concerns reported Const General: cooperative, comfortable, no acute distress, alert and awake; No confusion Orientation/consciousness: oriented to person, oriented to place, patient oriented x3 and No confusion HENMT Head: Yes normocephalic Ears: external ears normal and TM's normal bilaterally Face and sinus: No sinus tenderness Mouth: Normal oral and palatal mucosa present and tongue normal Teeth and gingiva: dentition normal and gingiva normal Throat: Yes posterior oropharynx normal, Yes tonsils normal and Yes uvula midline Eyes Conjunctivae: conjunctivae normal Sclerae: sclerae normal Pupils: Equal, round and reactive pupils present EOM: EOMs intact bilaterally Direct Ophthalmoscopy: No no photophobia Neck Neck: Yes no lymphadenopathy, No tender and Yes no JVD Thyroid: Thyroid normal Carotids: no bruits Chest Chest palpation & inspection: no tenderness Resp Effort & Inspection: normal respiratory effort, no audible wheezes, not labored and no stridor Auscultation: no crackles, no rales, no rhonchi and no wheezes Cardio Jugular venous distension: no JVD Rate: regular rate, not bradycardic and not tachycardic Rhythm: regular rhythm Bruits: no carotid bruits Peripheral pulses: Peripheral pulses 2+ throughout GI Inspection: Yes normal to inspection, No abdominal wall ecchymosis and No visible herniation Palpation (GI): Soft to palpation, nontender, no guarding, not rigid and No hepatosplenomegaly present Auscultation: normoactive bowel sounds General: Yes no CVA tenderness Back/Spine/Pelvis Back: no CVA tenderness and No back tenderness Cervical Spine: cervical ROM normal Thoracic/Lumbar Spine: thoracic and lumbar spine normal to inspection, straight leg raise negative bilaterally, No thoraco-lumbar ROM limited and No lumbar spinal tenderness Skin Lesions: no lesions Rashes: no rashes Wounds: no wounds Neuro General: oriented to person, oriented to place, patient oriented x3, CN's II-XI intact bilaterally and No confusion Cranial nerves: Yes Equal, round and reactive pupils present and Yes Normal accommodation reflex present Cognition (Neuro): normal cognition Speech: No Abnormal speech present Gait exam (Neuro): Normal gait present Motor exam (neuro): 5/5 motor strength present throughout Extrem Other: RIGHT BELOW-KNEE AMPUTATION Right upper extremity: full ROM; no cyanosis Left upper extremity: full ROM; no cyanosis Left lower extremity: no edema Psych Appearance: grossly normal Mental Status: mental status grossly normal Affect: normal affect Attitude: cooperative Thought process: Normal thought process present Coding Level of Care Code Est Pt Prev Care >65y(22628) Diagnoses Annual physical exam Z00.00 Type 2 diabetes mellitus with unspecified complications E11.8 Elevated PSA R97.20 Essential hypertension I10 Hypertension type: essential hypertension Status post below-knee amputation of right lower extremity Z89.511 Laterality: right Microalbuminuria due to type 2 diabetes mellitus E11.29; R80.9 Additional Codes PHQ-9 - 01127 - PHQ-9 Billing: Yes ([id number]) VICTOR HUGO-7 Assessment Billing - VICTOR HUGO-7 Assessment Tool: VICTOR HUGO-7 Assessment 57486 ([id number]) Assessment & Plan Assessment & Plan (1) Annual physical exam: Code(s): Z00.00 - Encounter for general adult medical examination without abnormal findings Category: Medical Plan: As per HPI (2) Type 2 diabetes mellitus with unspecified complications: Code(s): E11.8 - Type 2 diabetes mellitus with unspecified complications Category: Medical Plan: Patient's type 2 diabetes suboptimally controlled. Ozempic and mounjauro has been too expensive patient thus has stopped using this medication. 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 (3) Elevated PSA: Code(s): R97.20 - Elevated prostate specific antigen [PSA] Category: Medical Plan: . Recent TSH with small amount of improvement. Continues on tamsulosin Will recheck PSA at next lab draw. (4) HTN (hypertension): Code(s): I10 - Essential (primary) hypertension Category: Medical Qualifiers: Hypertension type: essential hypertension Qualified Code(s): I10 - Essential (primary) hypertension Plan: Patient's blood pressure acceptable today in office , will continue current dose of antihypertensive medication. Goal blood pressures to be below 140/90 (5) S/P BKA (below knee amputation): Code(s): Z89.519 - Acquired absence of unspecified leg below knee Category: Surgical Qualifiers: Laterality: right Qualified Code(s): Z89.511 - Acquired absence of right leg below knee Plan: Now has a right lower extremity prosthesis. He is ambulating quite well. He is ambulating with a cane at this time. (6) Microalbuminuria due to type 2 diabetes mellitus: Code(s): E11.29 - Type 2 diabetes mellitus with other diabetic kidney complication; R80.9 - Proteinuria, unspecified Category: Medical Plan: Noted microalbuminuria likely secondary to his type 2 diabetes. Patient Instructions: GOAL: A1c to be below 7.0, LDL to remain below 100 Barriers: Adherence to physical activity and healthy eating habits
[2025-05-08 14:54] VITALS: BP 134/60
--- OUTSIDE RECORDS SUMMARY | 2025-05-08 15:06 | XMS_ITS | Patient Health Record ---
Author Organization [facility] Address [address] [place] [address] Care Team Providers Care Theater Projectionist Name Role Phone Vikash Pompa Primary Care Provider Unavailab Mary Jo Davis Unavailable [phone] Allergies Allergen (clinical drug ingredient) Drug/Non Drug [...] Problem Acquired hammer toe of left foot (8944202793513369 ) Other hammer toe(s) (acquired), left foot (M20.42) Active confirmed Problem Polyneuropathy due to type 2 diabetes mellitus (223949245) Type 2 diabetes mellitus with diabetic polyneuropathy (E11.42) Active confirmed Problem Atherosclerosis of artery of both lower extremities (I70.203) Active confirmed Vital Signs Blood pressure diastolic 81 mm Hg 03/13/2025 Height 5 ft 9 in in 03/13/2025 Blood pressure systolic 124 mm Hg 03/13/2025 Weight 183 lbs 03/13/2025 BMI 27.02 kg/m2 03/13/2025 Encounters Encounter Location Date Provider Diagnosis [facility] [address] [address] 03/13/2025 Mary Jo Austin Type 2 diabetes [...] Name:Mary Jo singh, 05/31/2025 02:00:00 PM, [address] [place] [address], [phone], Insurance Providers Payer Name Payer Address Payer Phone Subscriber Number Group Number Insured Name Patient Relationship to Insured Coverage Start Date Coverage End Date [employer] Medicare [id number] [address] [address] [place] [address] [id number] Rivera Hernandez Self - patient is the insured Medical (General) History Medical History History ICD Code type II diabetes High Blood Pressure Surgical History Surgery Date(Month/Year) amputation of foot total 12/03
--- OUTSIDE RECORDS SUMMARY | 2025-05-08 15:06 | XMS_ITS | Encounter Summary ---
Author Organization [facility] Address [address] [place] [address] Care Team Providers Care Automatic Pilot Mechanic Name Role Phone Unavailable Primary Care Provider Unavailabl e Encounter Details Date Type Department Care Team (Latest Contact Info) Description 04/19/2019 Abstract [facility] CONVERSIONS Dental, Provider, DDS Social History Tobacco [...]
--- OUTSIDE RECORDS SUMMARY | 2025-05-08 15:06 | XMS_ITS | Patient Health Record ---
Author Organization [facility] Address [address] [place] [address] Care Team Providers Care Third Officer Name Role Phone Vikash Pompa Primary Care Provider Unavailab Peter Romano Unavailable [phone] Reason For Referral No Information Medications Medication [...] Problem Status W/U Status Risk Notes Problem [id number] Encounter for screening for malignant neoplasm of colon (Z12.11) Active confirmed Problem [id number] Aspirin long-term use (Z79.82) Active confirmed Plan Of Treatment Pending Test Test Name Order Date GI BIOPSY 11/13/2018 Future Test Test Name Order Date COLONOSCOPY 08/25/2018 Insurance Providers Payer Name Payer Address Payer Phone Subscriber Number Group Number Insured Name Patient Relationship to Insured Coverage Start Date Coverage End Date MEDICARE OF [employer] [address] [place] [id number] VIANCA CROUCH Self - patient is the insured Medical (General) History Medical History History ICD Code Screening Colonoscopy 6-19-2 008--neg. except for an inflammatory polyp, diffuse diverticulosis, and internal hemorrhoids Hypertension NIDDM Hyperllipidemia Denies [place],CVA,Lung disease,renal disease Surgical History Surgery Date(Month/Year) surgery for a broken nose
--- OUTSIDE RECORDS SUMMARY | 2025-05-08 15:06 | XMS_ITS | Clinical Summary ---
Author Organization [facility] [employer] Address [address] [place] [address] Care Team Providers Care Rn Care Manager Name Role Phone Unavailable Primary Care Provider [...]
== END 2025-05-08 15:12 | disposition home or self-care (01) ==
LOC: HO.HMCH 14:06
PROVIDERS: PCP Physician Assistant; Visit Provider Physician Assistant
DX: Z00.00 Encounter for general adult medical examination without abnormal findings (principal); E11.8 Type 2 diabetes mellitus with unspecified complications; Z89.511 Acquired absence of right leg below knee; E11.29 Type 2 diabetes mellitus with other diabetic kidney complication; R97.20 Elevated prostate specific antigen [PSA]; I10 Essential (primary) hypertension; R80.9 Proteinuria, unspecified

== ENCOUNTER → 2025-05-08 14:05 | Outpatient (BNVA) | payer MEDICARE, SELFPAY | PROVIDERS: PCP Physician Assistant; Visit Provider Physician Assistant | DX: Z00.00 Encounter for general adult medical examination without abnormal findings (principal); R97.20 Elevated prostate specific antigen [PSA]; I10 Essential (primary) hypertension; E11.29 Type 2 diabetes mellitus with other diabetic kidney complication; R80.9 Proteinuria, unspecified; Z89.511 Acquired absence of right leg below knee | CPT/HCPCS: 96127; 99397 ==

== ENCOUNTER 2025-06-27 09:59 | Outpatient (REF) | payer MEDICARE, SELFPAY ==
--- NOTE | ~2025-06-27 | US_ITS ---
EXAMINATION: Noninvasive assessment of the bilateral lower extremities with ARTERIAL DUPLEX, ANKLE BRACHIAL INDICES (ABIs), and PULSE VOLUME RECORDINGS (PVRs) on the left lower extremity. CLINICAL INFORMATION: Right below-knee amputation. Peripheral vascular disease. TECHNIQUE: Duplex Doppler techniques with waveform analysis and measurement of velocities in the bilateral common femoral, profunda femoris, superficial femoral, popliteal and tibial arteries were performed. Additionally, ankle pulse volume recordings, ankle pressure measurements and ankle brachial indices were obtained of the lower extremity arterial system bilaterally. The study was performed only at rest. COMPARISON: June 14, 2024 FINDINGS: There is arrhythmia episodes exam. DIRECT DUPLEX DOPPLER FINDINGS: RIGHT LEG: Common femoral artery: 113 cm/s, phasicity: Triphasic. Profunda femoris artery: 58 cm/s, phasicity: Biphasic. Superficial femoral artery (proximal): 89 cm/s, phasicity: Biphasic. Superficial femoral artery (mid): 86 cm/s, phasicity: Biphasic. Superficial femoral artery (distal): 64 cm/s, phasicity: Biphasic. Popliteal artery: 56 cm/s, phasicity: Biphasic. LEFT LEG: Common femoral artery: 153 cm/s, phasicity: Triphasic. Spectral broadening. Profunda femoris artery: 130 cm/s, phasicity: Triphasic. Superficial femoral artery (proximal): 75 cm/s, phasicity: Triphasic. Superficial femoral artery (mid): 69 cm/s, phasicity: Triphasic. Superficial femoral artery (distal): 86 cm/s, phasicity: Triphasic. Popliteal artery: 77 cm/s, phasicity: Triphasic. Posterior tibial artery: 88 cm/s, phasicity: Monophasic. Spectral broadening. Peroneal artery: 102 cm/s, phasicity: Monophasic. Spectral broadening. Anterior tibial artery: 27 cm/s, phasicity: Monophasic. Spectral broadening. Dorsalis pedis artery: 15 cm/s, phasicity: Monophasic. Spectral broadening.. There is an irregularly-shaped, 4 cm predominantly anechoic abnormality in the popliteal fossa with internal echoes and no flow on color Doppler interrogation. BRACHIAL PRESSURES: Left: 140 ANKLE PRESSURES: Left: PT more than 200, DP more than 200. ANKLE-BRACHIAL INDEX: Left: 1.43 ANKLE PVR WAVEFORMS: Left: Abnormal US/US arterial duplex BI w/ MARIEL IMPRESSION: Right leg: Mild to moderate inflow disease. Left leg: Severe inflow disease from the posterior tibialis to the dorsalis pedis arteries. 4 cm complex popliteal cyst. Arrhythmia. MARIEL Reference: - >1.4 = calcified vessels - 0.9 - 1.4 = normal - no significant arterial disease - 0.7 - 0.89 = mild peripheral arterial disease - 0.51 - 0.69 = moderate peripheral arterial disease - 0.50 = severe peripheral arterial disease - < .30 = critical arterial disease Electronically signed by: Franklin Mijares MD 06/27/2025 11:43 AM EDT
--- OUTSIDE RECORDS SUMMARY | 2025-06-27 11:52 | XMS_ITS | Patient Health Record ---
Author Organization [facility] Address [address] [address] Care Team Providers Care Skinner Pelts Name Role Phone Vikash Pompa Primary Care Provider UnavailMary Jo Hamilton Unavailable [phone] Allergies Allergen (clinical drug ingredient) Drug/Non Drug Allergy documented on EMR Reaction Allergy Type Onset Date Status sitagliptin Januvia Unknown Drug Allergy Activ e dulaglutide Trulicity Unknown Drug Allergy Activ e Results Component Value Reference Range Notes HEMOGLOBIN A1C (GLYCOHEMOGLO BIN) Reviewed date:03/13/2025 08:36:37 AM Interpretation: Performing Lab: Notes/Report: HEMOGLOBIN A1C % (HH) 8.7 HEMOGLOBIN A1C (GLYCOHEMOGLO BIN) Reviewed date:05/31/2025 01:49:20 PM Interpretation: Performing Lab: Notes/Report: HEMOGLOBIN A1C % (HH) 9.0 Reason For Referral No Information Medications Medication SIG (Take, Route, Frequency, Duration) Notes Start Date End Date Status Lisinopril 10 MG Oral; Duration: 90 Days Active metFORMIN HCl 1000 MG TAKE 1 TABLET BY M OUTH TWICE DAILY Oral; Duration: 90 Days Active amLODIPine Besylate 10 MG TAKE 1 TABLET BY MOUTH DAILY Oral; Duration: 90 Days Active Atorvastatin Calcium 10 MG Oral; Duration: 90 Days Acti ve Extra Depth Orthopedic Shoes (1 Pair) with Customized Heat Molded Multidensity Innersoles (3 Pair) Dx: NIDDM/Polyneuropathy (E11.42), Hammertoe Foot Deformity (M20.42), Preulcerative Skin Lesion(s) (L85.1) BKA Right; Duration: 365 days 03/13/2025 Active Tamsulosin HCl 0.4 MG Oral; Duration: 90 Days Active metFORMIN HCl 1000 MG Oral; Duration: 90 Days Active HumaLOG KwikPen 100 UNIT/ML Subcutaneous; Duration: 37 Days Active glipiZIDE 5 MG Oral; Duration: 90 Days Not-Taking Aspirin Low Dose 81 MG TAKE 1 TABLET BY MOUTH DAILY Oral; Duration: 90 Days Active amLODIPine Besylate 10 MG TAKE 1 TABLET BY MOUTH DAILY Oral; Duration: 90 Days Active Lantus SoloStar 100 UNIT/ML Subcutaneous; Duration: 25 Days Active Immunizations Vaccine Route Administration Date [...] Problem Acquired hammer toe of left foot ([id number]) Other hammer toe(s) (acquired), left foot (M20.42) Active confirmed Problem Polyneuropathy due to type 2 diabetes mellitus (022322283) Type 2 diabetes mellitus with diabetic polyneuropathy (E11.42) Active confirmed Problem Bilateral atherosclerosis of arteries of lower limbs (03259623731701078 ) Atherosclerosis of artery of both lower extremities (I70.203) Active confirmed Vital Signs Blood pressure diastolic 81 mm Hg 05/31/2025 Height 5 ft 9 in in 05/31/2025 Blood pressure systolic 124 mm Hg 05/31/2025 Weight 196 lbs 05/31/2025 BMI 28.94 kg/m2 05/31/2025 Encounters Encounter Location Date Provider Diagnosis [address] [address] 03/13/2025 Mary Jo Austin Type 2 diabetes mellitus with diabetic polyneuropathy E11.42 ; Tinea unguium B35.1 ; Other hammer toe(s) (acquired), left foot M20.42 and Atherosclerosis of artery of both lower extremities I70.203 [facility] [place] [address] 05/31/2025 Mary Jo Juanfrancisco Type 2 diabetes mellitus with diabetic polyneuropathy E11.42 ; Tinea unguium B35.1 ; Other hammer toe(s) (acquired), left foot M20.42 and Atherosclerosis of artery of both lower extremities I70.203 Assessments Encounter Date Diagnosis (ICD Code) Assessment Notes Treatment Notes Treatment Clinical Notes Section Notes 03/13/2025 Tinea unguium (ICD-10 - B35.1) 03/13/2025 Type 2 diabetes mellitus with diabetic polyneuropathy (ICD-10 - E11.42) 05/31/2025 Tinea unguium (ICD-10 - B35.1) 05/31/2025 Type 2 diabetes mellitus with diabetic polyneuropathy (ICD-10 - E11.42) 03/13/2025 Other hammer toe(s) (acquired), left foot (ICD-10 - M20.42) 05/31/2025 Other hammer toe(s) (acquired), left foot (ICD-10 - M20.42) 03/13/2025 Atherosclerosis of artery of both lower extremities (ICD-10 - I70.203) 05/31/2025 Atherosclerosis of artery of both lower extremities (ICD-10 - I70.203) 03/13/2025 Other Patient Educated with: DIABETIC FOOT CARE INSTRUCTIONS. pdf (DIABETIC FOOT CARE INSTRUCTIONS. pdf) 05/31/2025 Other Plan Of Treatment Next Appt Details Provider Name:Mary Jo Singh Juan singh, 09/04/2025 09:00:00 AM, [address] [place] [address], [phone], Provider Name:Mary Jo Singh Juan singh, 09/11/2025 09:00:00 AM, [address] [place] [address], [phone], Insurance Providers Payer Name Payer Address Payer Phone Subscriber Number Group Number Insured Name Patient Relationship to Insured Coverage Start Date Coverage End Date [employer] Medicare [id number] [address] [address] [place] [address] [phone] [id number] Rivera Hernandez Self - patient is the insured Medical (General) History Medical History History ICD Code type II diabetes High Blood Pressure Surgical History Surgery Date(Month/Year) BKA Right 12/03
--- OUTSIDE RECORDS SUMMARY | 2025-06-27 11:52 | XMS_ITS | Clinical Summary ---
Author Organization [employer] [facility] [employer] Address [address] [facility] 7t [place] [address] Care Team Providers Care Loss Prevention Lead Name Role Phone Unavailable Primary Care Provider [...] COVID-19 Vaccine (1 - 2023-2 5 season) 2025 Influenza Vaccine (#1) 2025 HIB Vaccines Aged [...]
--- OUTSIDE RECORDS SUMMARY | 2025-06-27 11:52 | XMS_ITS | Encounter Summary ---
Author Organization [facility] Address [address] [facility] 7t [place] [address] Care Team Providers Care Meat Butcher Name Role Phone Unavailable Primary Care Provider Unavailabl e Encounter Details Date Type Department Care Team (Latest Contact Info) Description 04/19/2019 Abstract [facility] CONVERSIONS Dental, Provider, DDS Social History [...]
--- OUTSIDE RECORDS SUMMARY | 2025-06-27 11:53 | XMS_ITS | Patient Health Record ---
Author Organization [facility] Address [address] [place] [address] Care Team Providers Care Clay Mixer Name Role Phone Vikash Pompa Primary Care Provider Unavailab Peter Romano Unavailable [phone] Reason For Referral No Information Medications Medication [...] Problem Status W/U Status Risk Notes Problem Screening for malignant neoplasm of colon (050705053) Encounter for screening for malignant neoplasm of colon (Z12.11) Active confirmed Problem Long-term current use of aspirin (3348572593422 03) Aspirin long-term use (Z79.82) Active confirmed Plan Of Treatment Pending Test Test Name Order Date GI BIOPSY 11/13/2018 Future Test Test Name Order Date COLONOSCOPY 08/25/2018 Insurance Providers Payer Name Payer Address Payer Phone Subscriber Number Group Number Insured Name Patient Relationship to Insured Coverage Start Date Coverage End Date MEDICARE OF [employer] [address] [place] [address] [id number] VIANCA CROUCH Self - patient is the insured Medical (General) History Medical History History ICD Code Screening Colonoscopy 02-28- 008--neg. except for an inflammatory polyp, diffuse diverticulosis, and internal hemorrhoids Hypertension NIDDM Hyperllipidemia Denies [place],CVA,Lung disease,renal disease Surgical History Surgery Date(Month/Year) surgery for a broken nose
== END 2025-06-27 10:00 | disposition home or self-care (01) ==
LOC: HO.US 09:59
PROVIDERS: PCP Physician Assistant; Visit Provider Surgery Vascular Surgery
DX: I73.9 Peripheral vascular disease, unspecified (principal)
CPT/HCPCS: 93922; 93925

== ENCOUNTER → 2025-06-27 10:03 | Outpatient (BNV) | payer MEDICARE, SELFPAY | PROVIDERS: PCP Physician Assistant; Visit Provider Radiology Diagnostic Radiology | DX: I73.9 Peripheral vascular disease, unspecified (principal) | CPT/HCPCS: 93922; 93925 ==

== ENCOUNTER 2025-07-02 09:02 | Outpatient (AMB) | payer MEDICARE, SELFPAY ==
--- NOTE | 2025-07-02 09:17 | A.OFFVIS_ITS ---
Vital Signs 07/02/25 09:18 Height 5 ft 11 in Weight 198 lb BMI 27.6 Intake Visit Reasons: follow up Arterial US 06/27/25 Intake Note: 1 yr art US follow up 06/27/25. Hx of Right BKA 01/26/24, has prosthetic. No complaints Joint Maker Machine Required: No Accompanied by: Spouse Allergies sitagliptin (From JANUVIA) Allergy (Unknown, Verified 07/02/25 09:19) vomitting dulaglutide (From Trulicity) Adverse Reaction (Intermediate, Verified 07/02/25 09:19) Rash pioglitazone (From Actos) Adverse Reaction (Intermediate, Verified 07/02/25 09:19) palpatations HPI HPI follow up Arterial US 06/27/25: Details: The patient is a 75-year-old male presenting with a follow-up evaluation of his arterial condition post-ultrasound. He reports numbness at the bottom of his leg but remains active, walking more than a block and engaging in physical activities such as working in the backyard and basement. The patient effectively uses a prosthetic limb, wearing it for over 12 hours daily, which supports his active lifestyle. He adheres to taking a baby aspirin as part of his preventative care. He now presents for routine arterial surveillance [facility] Medical History History of amputation of toe History of amputation of great toe Right below-knee amputee PAD (peripheral artery disease) Other and unspecified hyperlipidemia Essential hypertension Type 2 diabetes mellitus with unspecified complications Allergic rhinitis Stroke Nausea & vomiting Hospital discharge follow-up Atypical chest pain Diabetes Hyperlipidemia HTN (hypertension) Surgical History History of amputation below knee Hx of colonoscopy Family History Father No problems noted. Mother Myocardial infarction Sister Diabetes Hypertension Social History Household Members: Spouse Housing: House Do you presently have visiting nurse or other home services: No Alcohol intake: former Patient Tobacco Use Status: Never used Tobacco e-Cigarette/Vaping Use: Never Used Second Hand Smoke Exposure: No Advance Directives Date on File: 12/22/23 service: No Current occupational status: retired Cognitive needs: Yes (Wheel Chair) Hearing needs: No Vision needs: No Review of Systems Const All systems reviewed & are unremarkable except as noted in HPI and below Reports no additional complaints ENT Reports Normal hearing present Card Denies chest pain, Denies chest pain at rest, Denies chest pain with activity and Denies pedal edema Resp Denies cough GI Denies abdominal pain Musc Denies abnormal gait, Denies muscle cramps and Denies radiating pain into limb Skin/Breast Denies skin ulcer and Denies wounds Neuro Reports Normal hearing present and Denies abnormal gait Psych Reports no additional complaints Physical Exam Vital Signs: BMI result Body Mass Index 27.6 Const General: cooperative, healthy appearing and comfortable Orientation/consciousness: oriented to person, oriented to place and oriented to time HEENT Head: Yes normal to inspection Neck Neck: Yes normal visual inspection Carotids: no bruits Chest Chest palpation & inspection: normal inspection of the chest Resp Effort & Inspection: normal respiratory effort and able to speak in complete sentences Auscultation: clear to auscultation bilaterally, no crackles, no rales, no rhonchi and no wheezes Cardio Other: Left DP signals Rate: regular rate Rhythm: regular rhythm Heart sounds: S1 normal heart sound present and S2 normal heart sound present Bruits: no carotid bruits GI Inspection: Yes normal to inspection Skin Wounds: amputation site Hair: normal Neuro General: oriented to person, oriented to place and oriented to time Cranial nerves: Yes CN's II-XII intact bilaterally and Yes Normal hearing present Cognition (Neuro): normal cognition Motor exam (neuro): 5/5 motor strength present throughout Extrem Other: venous exam: No significant superficial varicosities or spider telangiectasias, minimal edema General: No clubbing, No cyanosis and No edema Psych Appearance: grossly normal Mental Status: mental status grossly normal Speech and movement: Normal speech and movement present Results Reviewed Results Reviewed: Noninvasive testing dated 06/27/2025 demonstrates left MARIEL of 1.43. There appears to be monophasic flow SFA on down but appears to be stable. Assessment & Plan Assessment & Plan (1) PAD (peripheral artery disease): Comment: 12/21/2023 right lower extremity diagnostic angiogram 01/26/2024 right BKA Code(s): I73.9 - Peripheral vascular disease, unspecified Category: Medical Plan: In short patient has stable arterial supply to the left leg. I did review the pathophysiology of peripheral vascular disease with the patient. In addition we did discuss routine conservative measures including a healthy diet and the importance of exercise and ambulation. We did discuss risk factor modification. The patient will continue to to follow-up with surveillance follow-up in approximately 1 year. Thank you for allowing us to participate in this pat ient's care. If there are any questions or concerns please do not hesitate to contact us. Orders: Orders US arterial duplex LE LT 1 Year I73.9 - Peripheral vascular disease, unspecified Coding Level of Care Code Est Pt Level 4 (75436) Complex EM visit Add On G2211 Diagnoses PAD (peripheral artery disease) I73.9
[2025-07-02 09:18] VITALS: BMI 27.6
--- OUTSIDE RECORDS SUMMARY | 2025-07-02 09:48 | XMS_ITS | Patient Health Record ---
Author Organization [facility] Address [address] [facility] [place] [address] Care Team Providers Care Evaporative Cooler Installer Name Role Phone Vikash Pompa Primary Care Provider UnavailMary Jo Hamilton Unavailable [phone] Allergies Allergen (clinical drug ingredient) Drug/Non Drug [...] Problem Acquired hammer toe of left foot (2877437382676843) Other hammer toe(s) (acquired), left foot (M20.42) Active confirmed Problem Polyneuropathy due to type 2 diabetes mellitus (501588712) Type 2 diabetes mellitus with diabetic polyneuropathy (E11.42) Active confirmed Problem Bilateral atherosclerosis of arteries of lower limbs (39665109484951115 ) Atherosclerosis of artery of both lower extremities (I70.203) Active confirmed Vital Signs Blood pressure diastolic 81 mm Hg 05/31/2025 Height 5 ft 9 in in 05/31/2025 Blood pressure systolic 124 mm Hg 05/31/2025 Weight 196 lbs 05/31/2025 BMI 28.94 kg/m2 05/31/2025 Encounters Encounter Location Date Provider Diagnosis [address] [address] 03/13/2025 Mary Jo Austin Type 2 diabetes mellitus with diabetic polyneuropathy E11.42 ; Tinea unguium B35.1 ; Other hammer toe(s) (acquired), left foot M20.42 and Atherosclerosis of artery of both lower extremities I70.[address] [facility] [place] [address] 05/31/2025 Mary Jo Juanfrancisco Type 2 diabetes [...] Jo Singh Juan singh, 09/04/2025 09:00:00 AM, [address] [place] [address], [phone], Provider Name:Mary Jo Singh Juan singh, 09/11/2025 09:00:00 AM, [address] [place] [address], [phone], Insurance Providers Payer Name Payer Address Payer Phone Subscriber Number Group Number Insured Name Patient Relationship to Insured Coverage Start Date Coverage End Date [employer] Medicare Adv-[id number] [address] [address] [place] [address] [id number] Rivera Hernandez Self - patient is the insured Medical (General) History Medical History History ICD Code type II diabetes High Blood Pressure Surgical History Surgery Date(Month/Year) BKA Right 12/03
--- OUTSIDE RECORDS SUMMARY | 2025-07-02 09:48 | XMS_ITS | Clinical Summary ---
Author Organization [employer] Address [address] [facility] 7t [place] [address] Care Team Providers Care Field Care Manager Name Role Phone Unavailable Primary [...]
--- OUTSIDE RECORDS SUMMARY | 2025-07-02 09:48 | XMS_ITS | Patient Health Record ---
Author Organization [facility] Address [address] [place] [address] Care Team Providers Care Studio Set Up Worker Name Role Phone Vikash Pompa Primary Care Provider Unavailab Peter Romano Unavailable [phone] Reason For Referral No Information Medications Medication [...] Problem Screening for malignant neoplasm of colon (726212206) Encounter for screening for malignant neoplasm of colon (Z12.11) Active confirmed Problem Long-term current use of aspirin (3560948814352 03) Aspirin long-term use (Z79.82) Active confirmed Plan Of Treatment Pending Test Test Name Order Date GI BIOPSY 11/13/2018 Future Test Test Name Order Date COLONOSCOPY 08/25/2018 Insurance Providers Payer Name Payer Address Payer Phone Subscriber Number Group Number Insured Name Patient Relationship to Insured Coverage Start Date Coverage End Date MEDICARE OF [employer] [place] [address] [place] [address] [id number] VIANCA CROUCH Self - patient is the insured Medical (General) History Medical History History ICD Code Screening Colonoscopy 02-28- 008--neg. except for an inflammatory polyp, diffuse diverticulosis, and internal hemorrhoids Hypertension NIDDM Hyperllipidemia Denies [place],CVA,Lung disease,renal disease Surgical History Surgery Date(Month/Year) surgery for a broken nose
--- OUTSIDE RECORDS SUMMARY | 2025-07-02 09:48 | XMS_ITS | Encounter Summary ---
Author Organization [employer] Address [address] [facility] 7t [place] [address] Care Team Providers Care Care Nurse Rn Name Role Phone Unavailable Primary Care Provider Unavailabl e Encounter Details Date Type Department Care Team (Latest Contact Info) Description 04/19/2019 Abstract [facility] CONVERSIONS Dental, Provider, DDS Social History [...]
== END 2025-07-02 09:53 | disposition home or self-care (01) ==
LOC: HO.HVS 09:03
PROVIDERS: PCP Physician Assistant; Visit Provider Surgery Vascular Surgery
DX: I73.9 Peripheral vascular disease, unspecified (principal)
CPT/HCPCS: 99214; G2211

== ENCOUNTER → 2025-07-02 09:02 | Outpatient (BNVA) | payer MEDICARE, SELFPAY | PROVIDERS: PCP Physician Assistant; Visit Provider Surgery Vascular Surgery | DX: I73.9 Peripheral vascular disease, unspecified (principal); Z89.511 Acquired absence of right leg below knee | CPT/HCPCS: 99212 ==

== ENCOUNTER 2025-07-17 09:13 | Outpatient (AMB) | payer MEDICARE, SELFPAY ==
[2025-07-17 09:21] VITALS: BP 130/70; PULSE 92; O2SAT 96; BMI 28.0
--- NOTE | 2025-07-17 09:21 | A.OFFVIS_ITS ---
Vital Signs 07/17/25 09:21 Height 5 ft 11 in Weight 200 lb 9.93 oz BMI 28.0 BP 130/70 Blood Pressure Location Rt brachial Position Sitting Pulse 92 Pulse Source Pulse Oximeter Pulse Oximetry (%) 96 Oxygen Delivery Method Room Air Intake Visit Reasons: DM follow up Intake Note: Patient presents today for a follow-up for Type 2 Diabetes Mellitus: Last Diabetic Eye exam: 04/25/2025, [facility]. Rosalinda Grider, reffered to Dr Thompson Last Podiatry Exam: 03/13/2025, [facility]. Most recent HbA1c: 8.3%, 07/17/2025 Random Glucose- 182 mg/dL, 09:27 AM Human Resources Intern Required: No Accompanied by: Significant Other Allergies sitagliptin (From JANUVIA) Allergy (Unknown, Verified 07/17/25 09:23) vomitting dulaglutide (From Trulicity) Adverse Reaction (Intermediate, Verified 07/17/25 09:23) Rash pioglitazone (From Actos) Adverse Reaction (Intermediate, Verified 07/17/25 09:23) palpatations HPI Comments Details: 75 year old male with a past medical history of type 2 diabetes presenting for follow up Medical hx: PAD, hypertension, hyperlipidemia, OA Initially diagnosed with T2DM >10 years. Current regimen: On metformin 1000 mg BID, lantus 25 (increased from 22) units lispro 6 units with lunch & dinner (started lunchtime last visit) Had improved control on ozempic but the copay is too high. Mounjaro is even higher. Intolerant meds: trulicity, januvia, actos. Previously on glimepiride POC A1C is 8.3% from 9.4% up from 8.5% Has 1010datastyle manuela 2 CGM phone reviewed-GMI 7.7% for last 14 days Family history of T2DM in sisters have Type 2 DM and mother Sees ophtho -needs a new referral which is placed Sees podiatry every 3 mos Micro/macrovascular complications: PAD, osteo s/p right BKA. On KHALIDA/ARB. On statin ROS CONSTITUTIONAL: Denies weight loss, fever and chills. HEENT: Denies changes in vision and hearing. RESPIRATORY: Denies SOB and cough. CV: Denies palpitations and CP GI: Denies abdominal pain, nausea, vomiting and diarrhea. : Denies dysuria and urinary frequency. MSK: Denies new myalgia and joint pain. SKIN: Denies rash and pruritus. NEUROLOGICAL: Denies headache PSYCHIATRIC: Denies recent changes in mood. PHYSICAL EXAM: GENERAL: Alert and oriented x 3. NAD EYES: EOMI. Anicteric. HENT: Moist mucous membranes. No scleral icterus. No cervical lymphadenopathy. LUNGS: Clear to auscultation bilaterally. CARDIOVASCULAR: RRR, +murmur ABDOMEN: Soft, non-tender +bs EXTREMITIES: RBKA SKIN: No rashes or lesions. Warm. NEUROLOGIC: No focal neurological deficits. CN II-XII grossly intact PSYCHIATRIC: Cooperative. Appropriate mood and affect [facility] Medical History History of amputation of toe History of amputation of great toe Right below-knee amputee PAD (peripheral artery disease) Other and unspecified hyperlipidemia Essential hypertension Type 2 diabetes mellitus with unspecified complications Allergic rhinitis Stroke Nausea & vomiting Hospital discharge follow-up Atypical chest pain Diabetes Hyperlipidemia HTN (hypertension) Surgical History History of amputation below knee Hx of colonoscopy Family History Father No problems noted. Mother Myocardial infarction Sister Diabetes Hypertension Social History Household Members: Spouse Housing: House Do you presently have visiting nurse or other home services: No Alcohol intake: former Patient Tobacco Use Status: Never used Tobacco e-Cigarette/Vaping Use: Never Used Second Hand Smoke Exposure: No Advance Directives Date on File: 12/22/23 service: No Current occupational status: retired Cognitive needs: Yes (Wheel Chair) Hearing needs: No Vision needs: No Physical Exam Vital Signs: Last Vital Signs Pulse 92 07/17/25 09:21 BP 130/70 07/17/25 09:21 Pulse Ox 96 07/17/25 09:21 Oxygen Delivery Method Room Air 07/17/25 09:21 BMI result Body Mass Index 28.0 Results AMB Hemoglobin A1c AMB Hemoglobin A1c 8.3 % Last Edit by ELADIA Forrester on 07/17/25 09:47 Results Reviewed Results Reviewed: Laboratory Last Values Glucose (Clinic) 182 mg/dL (60-115) H 07/17/25 09:27 Assessment & Plan Assessment & Plan (1) Type 2 diabetes mellitus with unspecified complications: Code(s): E11.8 - Type 2 diabetes mellitus with unspecified complications Category: Medical Plan Type 2 diabetes uncontrolled A1C has improved per CGM even more improvement recently Increase lunch/dinner meal time insulin to 8 units Continue current dose of daily insulin Conservative changes given past lows Treat hypoglycemia by rules of 15s Return in 3 months or sooner as needed Orders: Orders AMB Hemoglobin A1c Today E11.8 - Type 2 diabetes mellitus with unspecified complications Medications: Changed From Humalog KwikPen Insulin (insulin lispro) 15 minutes prior to lunch and dinner 6 units (0.06 mL) subcut BID 30 mL 3RF NS E11.8 - Type 2 diabetes mellitus with unspecified complications To Humalog KwikPen Insulin (insulin lispro) 15 minutes prior to lunch and dinner 8 units (0.08 mL) subcut BID 30 mL 3RF NS E11.8 - Type 2 diabetes mellitus with unspecified complications Refilled metformin 1,000 mg PO BID 180 tabs 3RF 90 days E11.9 - Type 2 diabetes mellitus without complications tamsulosin 0.4 mg PO BEDTIME 90 caps 3RF R97.20 - Elevated prostate specific antigen [PSA] pen needle, diabetic As directed BID 200 ea 3RF E11.8 - Type 2 diabetes mellitus with unspecified complications Coding Level of Care Code Est Pt Level 4 (65699) Diagnoses Type 2 diabetes mellitus with unspecified complications E11.8
[2025-07-17 09:32] LABS: Glucose, Whole Blood 182 mg/dL (60-115)
--- OUTSIDE RECORDS SUMMARY | 2025-07-17 10:00 | XMS_ITS | Patient Health Record ---
Author Organization [facility] Address [address] [facility] [place] [address] Care Team Providers Care Suction Drum Drier Operator Name Role Phone Vikash Pompa Primary Care Provider UnavailMary Jo Hamilton Unavailable [phone] Allergies Allergen (clinical drug ingredient) Drug/Non Drug [...] Problem Acquired hammer toe of left foot (0330322662034181) Other hammer toe(s) (acquired), left foot (M20.42) Active confirmed Problem Polyneuropathy due to type 2 diabetes mellitus (530905871) Type 2 diabetes mellitus with diabetic polyneuropathy (E11.42) Active confirmed Problem Bilateral atherosclerosis of arteries of lower limbs (89109471780868500 ) Atherosclerosis of artery of both lower extremities (I70.203) Active confirmed Vital Signs Blood pressure diastolic 81 mm Hg 05/31/2025 Height 5 ft 9 in in 05/31/2025 Blood pressure systolic 124 mm Hg 05/31/2025 Weight 196 lbs 05/31/2025 BMI 28.94 kg/m2 05/31/2025 Encounters Encounter Location Date Provider Diagnosis [address] [address] 03/13/2025 Mary Jo Austin Type 2 diabetes mellitus with diabetic polyneuropathy E11.42 ; Tinea unguium B35.1 ; Other hammer toe(s) (acquired), left foot M20.42 and Atherosclerosis of artery of both lower extremities I70.[address] [facility] [place] [address] 05/31/2025 Mary Jo Juanfrancisco Type 2 diabetes [...] Jo Singh Juan singh, 09/04/2025 09:00:00 AM, [address] [place] [address], [phone], Provider Name:Mary Jo Singh Juan singh, 09/11/2025 09:00:00 AM, [address] [place] [address], [phone], Insurance Providers Payer Name Payer Address Payer Phone Subscriber Number Group Number Insured Name Patient Relationship to Insured Coverage Start Date Coverage End Date [employer] Medicare Adv-[id number] [address] [address] [place] [address] [id number] Rivera Hernandez Self - patient is the insured Medical (General) History Medical History History ICD Code type II diabetes High Blood Pressure Surgical History Surgery Date(Month/Year) BKA Right 12/03
--- OUTSIDE RECORDS SUMMARY | 2025-07-17 10:00 | XMS_ITS | Encounter Summary ---
Author Organization [employer] Address [address] [facility] 7t [place] [address] Care Team Providers Care Clay Roaster Name Role Phone Unavailable Primary Care Provider Unavailabl e Encounter Details Date Type Department Care Team (Latest Contact Info) Description 04/19/2019 Abstract [facility] CONVERSIONS Dental, Provider, DDS Social History Tobacco [...]
--- OUTSIDE RECORDS SUMMARY | 2025-07-17 10:00 | XMS_ITS | Patient Health Record ---
Author Organization [facility] Address [address] [place] [address] Care Team Providers Care Wax Ball Knock Out Worker Name Role Phone Vikash Pompa Primary Care Provider Unavailab Peter Romano Unavailable [phone] Reason For Referral No Information Medications Medication [...] Problem Screening for malignant neoplasm of colon (275981396) Encounter for screening for malignant neoplasm of colon (Z12.11) Active confirmed Problem Long-term current use of aspirin ([id number] 03) Aspirin long-term use (Z79.82) Active confirmed Plan Of Treatment Pending Test Test Name Order Date GI BIOPSY 11/13/2018 Future Test Test Name Order Date COLONOSCOPY 08/25/2018 Insurance Providers Payer Name Payer Address Payer Phone Subscriber Number Group Number Insured Name Patient Relationship to Insured Coverage Start Date Coverage End Date MEDICARE OF [employer] [place] [address] [place] [address] [id number] VIANCA CROUCH Self - patient is the insured Medical (General) History Medical History History ICD Code Screening Colonoscopy 02-28- 008--neg. except for an inflammatory polyp, diffuse diverticulosis, and internal hemorrhoids Hypertension NIDDM Hyperllipidemia Denies SC,CVA,Lung disease,renal disease Surgical History Surgery Date(Month/Year) surgery for a broken nose
--- OUTSIDE RECORDS SUMMARY | 2025-07-17 10:00 | XMS_ITS | Clinical Summary ---
Author Organization [employer] Address [address] [facility] [address] [place] [address] Care Team Providers Care Aquatic Director Name Role Phone Unavailable Primary Care Provider [...]
== END 2025-07-17 09:54 | disposition home or self-care (01) ==
LOC: HO.ENCR 09:14
PROVIDERS: PCP Physician Assistant; Visit Provider Internal Medicine
DX: E11.8 Type 2 diabetes mellitus with unspecified complications (principal)

== ENCOUNTER → 2025-07-17 09:13 | Outpatient (BNVA) | payer MEDICARE, SELFPAY | PROVIDERS: PCP Physician Assistant; Visit Provider Internal Medicine | DX: E11.65 Type 2 diabetes mellitus with hyperglycemia (principal); Z79.4 Long term (current) use of insulin; Z89.511 Acquired absence of right leg below knee; Z89.419 Acquired absence of unspecified great toe; Z89.429 Acquired absence of other toe(s), unspecified side; I10 Essential (primary) hypertension; E78.5 Hyperlipidemia, unspecified; I73.9 Peripheral vascular disease, unspecified | CPT/HCPCS: 82947; 83036; 99212 ==

== ENCOUNTER 2025-08-06 09:39 | Outpatient (AMB) | payer MEDICARE, SELFPAY ==
[2025-08-06 10:01] VITALS: BP 130/64; PULSE 89; BMI 25.1
--- NOTE | 2025-08-06 10:01 | A.OFFVIS_ITS ---
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 Accompanied by: Spouse Allergies sitagliptin (From JANUVIA) Allergy (Unknown, Verified 07/17/25 09:23) vomitting dulaglutide (From Trulicity) Adverse Reaction (Intermediate, Verified 07/17/25 09:23) Rash pioglitazone (From Actos) Adverse Reaction (Intermediate, Verified 07/17/25 09:23) palpatations Medication List - Last Reconciled 08/06/25 by Magnus Thomas MD amlodipine 10 mg PO DAILY aspirin 81 mg PO DAILY 90 days atorvastatin 10 mg PO DAILY 90 days blood-glucose meter (FreeStyle Lite Meter kit) As directed tests 4 X/day chair, wheel (Wheel chair) As directed FreeStyle Lancets (lancets) once daily NS FreeStyle Enrrique 3 Plus Sensor (blood-glucose sensor) every 15 days NS FreeStyle Enrrique 3 [place] (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-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,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,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) As directed NS FreeStyle Lite Strips (blood sugar diagnostic) As directed tests 4 X/day NS FreeStyle Lite Strips (blood sugar diagnostic) once daily NS Humalog KwikPen Insulin (insulin lispro) 8 units (0.08 mL) subcut BID NS Lantus Solostar U-100 Insulin (insulin glargine) 25 units (0.25 mL) subcut QAM 90 days NS lisinopril 10 mg PO DAILY 90 days metformin 1,000 mg PO BID 90 days pen needle, diabetic As directed BID [Single Ply socks 9 single ply socks (1 pack multiple)] tamsulosin 0.4 mg PO BEDTIME walker Folding Front wheeled walker walker Folding Front wheeled walker HPI Comments Details: Rivera returns for follow-up. No known coronary disease, but he has multiple vascular risk factors. Has poorly controlled diabetes, hypertension, dyslipide [place]. Has peripheral vascular disease. 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 Overall, he states he feels good. He has got no cardiac symptoms or anything el se of concern. [facility] Medical History Right below-knee amputee PAD (peripheral artery disease) Other and unspecified hyperlipidemia Essential hypertension Type 2 diabetes mellitus with unspecified complications Allergic rhinitis Stroke Nausea & vomiting Hospital discharge follow-up Atypical chest pain Diabetes Hyperlipidemia HTN (hypertension) Surgical History History of amputation of toe History of amputation of great toe History of amputation below knee Hx of colonoscopy Family History Father No problems noted. Mother Myocardial infarction Sister Diabetes Hypertension Social History Household Members: Spouse Housing: House Do you presently have visiting nurse or other home services: No Alcohol intake: former Patient Tobacco Use Status: Never used Tobacco e-Cigarette/Vaping Use: Never Used Second Hand Smoke Exposure: No Advance Directives Date on File: 12/22/23 service: No Current occupational status: retired Cognitive needs: Yes (Wheel Chair) Hearing needs: No Vision needs: No Review of Systems Const Denies chills, Denies fatigue, Denies fever(s), Denies frequent falls, Denies weakness, Denies weight gain and Denies weight loss ENT Denies dizziness Card Denies chest pain, Denies leg edema, Denies lightheadedness, Denies palpitations, Denies dyspnea and Denies dyspnea on exertion Resp Denies cough, Denies dyspnea and Denies dyspnea on exertion GI Denies hematochezia Musc Denies abnormal gait, Denies muscle weakness, Denies numbness, Denies radiating pain into limb and Denies tingling Neuro Denies abnormal gait, Denies dizziness, Denies frequent falls, Denies numbness, Denies tingling and Denies weakness Endo Denies fatigue and Denies palpitations Physical Exam Vital Signs: Last Vital Signs Pulse 89 08/06/25 10:01 BP 130/64 08/06/25 10:01 BMI result Body Mass Index 25.1 Const General: comfortable and no acute distress Orientation/consciousness: patient oriented x3 HEENT Other: Unremarkable Head: Yes normal to inspection Neck Neck: Yes normal visual inspection Chest Chest palpation & inspection: normal inspection of the chest Resp Auscultation: clear to auscultation bilaterally Cardio Palpation: normal PMI Heart sounds: S1 normal heart sound present, S2 normal heart sound present, no gallops, Murmur heart sound present systolic III/ and at the right sternal border and no rubs GI Palpation (GI): Soft to palpation Back/Spine/Pelvis Other: unremarkable Skin General skin exam: no rashes or lesions noted Neuro General: patient oriented x3 Extrem General: Yes normal to inspection Psych Mental Status: mental status grossly normal Office Procedures EKG Details: EKG with underlying sinus rhythm; 89/Min; sinus arrhythmias; leftward axis; left ventricular hypertrophy; [place] [id number], Complete Assessment & Plan Assessment & Plan (1) Aortic valve sclerosis: Code(s): I35.8 - Other nonrheumatic aortic valve disorders Category: Medical (2) Atrial arrhythmia: Code(s): I49.8 - Other specified cardiac arrhythmias Category: Medical (3) Type 2 diabetes mellitus with unspecified complications: Code(s): E11.8 - Type 2 diabetes mellitus with unspecified complications Category: Medical (4) Essential hypertension: Code(s): I10 - Essential (primary) hypertension Category: Medical (5) Other and unspecified hyperlipidemia: Code(s): E78.5 - Hyperlipidemia, unspecified Category: Medical (6) PAD (peripheral artery disease): Code(s): I73.9 - Peripheral vascular disease, unspecified Category: Medical Plan Cardiac studies reviewed. Echocardiogram 2022 shows LVEF of 65-70%. Moderate aortic valve calcification and mild mitral annular calcification. In the stress test 2022, able to exercise for 5.3 Mets. No angina. Reach target heart rate. Normal blood pressure response. No EKG evidence of ischemia. Perfusion imaging unremarkable. Overall, multiple cardiovascular risk factors but no obstructive CAD based on above testing. Has vascular disease. Due to aortic valve sclerosis on the echocardiogram, there is an increased risk of aortic stenosis in the future. We will check another echocardiogram before his next visit. Due to frequent supraventricular ectopy, there is increased risk of atrial fibrillation in the future. Otherwise, aggressive risk factor modification and optimal control of diabetes, hypertension, dyslipidemia. Most recent hemoglobin A1c is 8.3% but it has been as much as 13% in the past. Discussion Notes I advised the patient that their cardiac status appears to be stable, with no current symptoms of concern. We discussed the improvement in the patient's diabetes control, noting that while the HbA1c levels have decreased, they are still above the recommended target. The patient agreed to the plan for a follow- up appointment in one year, at which time a heart ultrasound will be performed. I provided anticipatory guidance, instructing the patient to seek immediate medical attention for any new onset of chest pain. Patient was informed and verbally consented to the use of an ambient scribe for clinic note documentation during this visit. Orders: Orders CA echo transthoracic complete 1 Year I35.0 - Nonrheumatic aortic (valve) stenosis Patient Instructions: - Please return for a follow-up visit in one year. - We will schedule a heart ultrasound for you at your next yearly appointment. - If you have any chest pain, you should get medical help right away. Coding Level of Care Code Complex visit Add On G2211 Diagnoses Aortic valve sclerosis I35.8 Atrial arrhythmia I49.8 Type 2 diabetes mellitus with unspecified complications E11.8 Essential hypertension I10 Other and unspecified hyperlipidemia E78.5 PAD (peripheral artery disease) I73.9 CPT Codes EKG - CPT: 81741-[id number], Complete ([id number])
--- OUTSIDE RECORDS SUMMARY | 2025-08-06 11:15 | XMS_ITS | Encounter Summary ---
Author Organization [employer] Address [address] [facility] [address] [place] [address] Care Team Providers Care Occupational Therapy Asst Name Role Phone Unavailable Primary Care Provider Unavailabl e Encounter Details Date Type Department Care Team (Latest Contact Info) Description 04/19/[address] [facility] CONVERSIONS Dental, Provider, DDS Social History [...]
--- OUTSIDE RECORDS SUMMARY | 2025-08-06 11:15 | XMS_ITS | Clinical Summary ---
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
== END 2025-08-06 10:16 | disposition home or self-care (01) ==
LOC: HO.HCS 09:40
PROVIDERS: PCP Physician Assistant; Visit Provider Internal Medicine
DX: I35.8 Other nonrheumatic aortic valve disorders (principal); I49.8 Other specified cardiac arrhythmias; E11.8 Type 2 diabetes mellitus with unspecified complications; I10 Essential (primary) hypertension; E78.5 Hyperlipidemia, unspecified; I73.9 Peripheral vascular disease, unspecified
CPT/HCPCS: 93010; 99214; G2211

== ENCOUNTER → 2025-08-06 09:39 | Outpatient (BNVA) | payer MEDICARE, SELFPAY | PROVIDERS: PCP Physician Assistant; Visit Provider Internal Medicine | DX: I49.8 Other specified cardiac arrhythmias (principal); I35.8 Other nonrheumatic aortic valve disorders; E11.8 Type 2 diabetes mellitus with unspecified complications; I10 Essential (primary) hypertension; E78.5 Hyperlipidemia, unspecified; I73.9 Peripheral vascular disease, unspecified | CPT/HCPCS: 93005; 99212 ==